=== PATIENT | male | born 1950 | race Hispanic/Latino ===

== ENCOUNTER 2017-03-29 20:03 | Emergency (ER) | payer MEDICARE, MEDICAID ==
[2017-03-29 20:03] VITALS: BMI 38.7
[2017-03-29 21:29] LABS: BASO # 0.1 K/uL (0.0-0.2); BASO % 1.1 % (0.0-2.0); EOS # 0.3 K/uL (0.0-0.7); EOS % 4.8 % (0.0-4.0); LYMPH % 27.7 % (20.0-40.0); MEAN CORPUSCULAR HEMOGLOBIN 29.3 pg (27.0-31.0); MEAN CORPUSCULAR HGB CONC 32.9 g/dL (33.0-37.0); MEAN PLATELET VOLUME 7.9 fL (7.2-11.7); MONO # 0.7 K/uL (0.0-0.8); MONO % 9.9 % (0.0-10.0); NRBC % 0.1 % (0.0-2.0); RED CELL DISTRIBUTION WIDTH 14.6 % (11.5-14.5); WHITE BLOOD COUNT 7.2 K/uL (4.8-10.8)
[2017-03-29 21:37] LABS: CHLORIDE 103 mmol/L (98-107); SODIUM 140 mmol/L (132-148)
[2017-03-29 21:38] LABS: POTASSIUM 5.2 mmol/L (3.6-5.2)
[2017-03-29 21:39] LABS: GFR AFRICAN-AMERICAN > 60
[2017-03-29 21:40] LABS: ALB/GLOB RATIO 1.3 (1.0-2.1); ALKALINE PHOSPHATASE 62 U/L (38-126); ALT/SGPT 38 U/L (21-72); AST/SGOT 46 U/L (17-59); BILIRUBIN,TOTAL 0.7 mg/dL (0.2-1.3); BLOOD UREA NITROGEN 24 mg/dL (9-20); CALCIUM 8.6 mg/dl (8.6-10.4); CARBON DIOXIDE 25 mmol/L (22-30); GLUCOSE,RANDOM 95 mg/dL (75-110); TOTAL PROTEIN 7.5 g/dL (6.3-8.3)
[2017-03-29 21:41] LABS: ALCOHOL SERUM 91 mg/dl (0-10)
--- NOTE | 2017-03-29 23:06 | C.PDOC ---
History Of Present Illness 66 year old male who presents to the ER after he tripped over his walker and hit his face on the ground. Patient admits to ETOH use today; denies LOC, nausea , or vomiting. - HPI Time Seen by Provider: 03/29/17 21:15 Chief Complaint (Nursing): Trauma History Per: Patient History/Exam Limitations: no limitations Onset/Duration Of Symptoms: Hrs Injury Occurred (Timing): Just Before Arrival Recent travel outside of the [place]: No Past Medical History Reviewed: Historical Data, Nursing Documentation, Vital Signs Vital Signs: Last Vital Signs Temp 98.3 F 03/30/17 00:04 Pulse 77 03/30/17 00:04 Resp 18 03/30/17 00:04 BP 141/82 03/30/17 00:04 Pulse Ox 95 03/30/17 00:13 - Medical History PMH: Diabetes, Hepatitis, HTN, Hypercholesterolemia Surgical History: No Surg Hx - [facility] Procedures DRUG DETOXIFICATION (03/15/15) TETANUS TOXOID ADMINIST (04/19/15) Family History: States: Unknown Family Hx - Social History Hx Tobacco Use: No Hx Alcohol Use: No Hx Substance Use: No - Immunization History Hx Tetanus Toxoid Vaccination: No (7-8 yrs ago) Hx Influenza Vaccination: No Hx Pneumococcal Vaccination: Yes Review Of Systems Constitutional: Negative for: Fever, Chills Gastrointestinal: Negative for: Nausea, Vomiting Neurological: Negative for: Other (LOC) Physical Exam - Physical Exam Appears: Non-toxic, Other (Obese, ETOH on breath, no other injuries) Skin: Warm, Dry Head: Normacephalic, Laceration (1cm superficial at bridge of nose) Eye(s): bilateral: Normal Inspection Oral Mucosa: Moist Neck: Normal, Supple Chest: Symmetrical, No Tenderness Cardiovascular: Rhythm Regular, No Murmur Respiratory: Normal Breath Sounds, No Rales, No Rhonchi, No Wheezing Gastrointestinal/Abdominal: Soft, No Tenderness Neurological/Psych: Oriented x3, Normal Speech, Normal Cognition ED Course And Treatment - Laboratory Results Result Diagrams: 03/29/17 21:25 03/29/17 21:25 Lab Interpretation: Abnormal (ETOH 90 H) ECG: Interpreted By Ri ECG Rhythm: Sinus Rhythm ECG Interpretation: Normal Rate From EC O2 Sat by Pulse Oximetry: 95 Pulse Ox Interpretation: Normal - Radiology CXR: Interpreted by Me CXR Interpretation: Yes: No Acute Disease - Other Rad Max Face CT X-Ray: Read By Radiologist (neg) Head CT X-Ray: Read By Radiologist (neg) Progress Note: EKG, CT head/maxillofacial, and CXR ordered. Tylenol and bacitracin administered. Reevaluation Time: 23:52 Reassessment Condition: Improved (remains calm, cooperative, NAD) Medical Decision Making Medical Decision Making: mild/mod etoh abuse, tripped over his rolling walker, small lac @ nasal bridge is superficial no sutures required. head/Max Face Head CT's neg. Disposition Doctor Will See Patient In The: Office Counseled Patient/Family Regarding: Studies Performed, Diagnosis - Disposition Referrals: Sreedhar Kelly DO [Doctor Osteopathy] - Disposition: HOME/ ROUTINE Disposition Time: 23:52 Condition: GOOD Additional Instructions: bacitracin ointment to the small facial laceration, 2x/day Follow-up with your PMD Avoid alcohol use when walking with your rolling walker to avoid tripping. Forms: [email or web address] ([place]) - Clinical Impression Clinical Impression: Facial laceration, Fall from standing - Scribe Statement The provider has reviewed the documentation as recorded by the Scribe Luis Felipe Munroe All medical record entries made by the Scribe were at my direction and personally dictated by me. I have reviewed the chart and agree that the record accurately reflects my personal performance of the history, physical exam, medical decision making, and the department course for this patient. I have also personally directed, reviewed, and agree with the discharge instructions and disposition.
--- NOTE | 2017-03-29 23:28 | CT ---
EXAM: CT Maxillofacial Without Intravenous Contrast EXAM DATE/TIME: 03/29/2017 9:24 PM CLINICAL HISTORY: 66 years old, male; Injury or trauma; Fall; Initial encounter; Concussion /head injury; Without loss of consciousness; Additional info: Fall from standing, ? nose TECHNIQUE: Axial computed tomography images of the face without intravenous contrast. All CT scans at this facility use one or more dose reduction techniques, viz.: automated exposure control; ma/kV adjustment per patient size (including targeted exams where dose is matched to indication; i.e. head); or iterative reconstruction technique. Coronal and sagittal reformatted images were created and reviewed. COMPARISON: No relevant prior studies available. FINDINGS: Subcutaneous soft tissue swelling in the nasal region. All of the nasal lucencies appear smooth and corticated. No acute nasal bone fracture identified. Mild mucosal thickening of the ethmoid sinuses, sphenoid sinuses, and right maxillary sinus. Probable mucosal retention cyst left sphenoid sinus Trace fluid in the mastoid air cells bilaterally. Dental fillings produce artifact. Degenerative changes in the cervical spine. IMPRESSION: No acute fractures.
--- NOTE | 2017-03-29 23:34 | CT ---
EXAM: CT Head Without Intravenous Contrast EXAM DATE/TIME: 03/29/2017 9:23 PM CLINICAL HISTORY: 66 years old, male; Injury or trauma; Fall; Initial encounter; Concussion / head injury; Additional info: Fall from standing, frontal TECHNIQUE: Axial computed tomography images of the head/brain without intravenous contrast. All CT scans at this facility use one or more dose reduction techniques, viz.: automated exposure control; ma/kV adjustment per patient size (including targeted exams where dose is matched to indication; i.e. head); or iterative reconstruction technique. COMPARISON: No relevant prior studies available. FINDINGS: Atrophy and chronic small vessel ischemic disease. 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 Left basal ganglia calcification. No intracranial hemorrhage. No intracranial edema. Mild mucosal thickening of the ethmoid and sphenoid sinuses with mucosal retention cyst in the left sphenoid sinus. No depressed fractures. IMPRESSION: No acute intracranial injury.
[2017-03-29] MEDS ORDERED: Bacitracin 500 Units/gm Oint Foilpak UD TOP ONE (23:51)
[2017-03-30] MEDS ORDERED: Bacitracin 500 Units/gm Oint Foilpak UD ONE (00:01)
[2017-03-30 00:05] VITALS: BP 141/82; PULSE 77; RESP 18; TEMP 98.3
[2017-03-30 00:12] VITALS: O2SAT 95
--- NOTE | 2017-03-30 11:22 | RAD ---
PROCEDURE: CHEST RADIOGRAPH, 1 VIEW HISTORY: SOB COMPARISON: 03/15/2015 FINDINGS: LUNGS: Clear. PLEURA: No pneumothorax or pleural fluid seen. CARDIOVASCULAR: Normal. OSSEOUS STRUCTURES: No significant abnormalities. VISUALIZED UPPER ABDOMEN: Normal. OTHER FINDINGS: None. IMPRESSION: No active disease.
--- NOTE | 2017-04-01 12:25 | CARD ---
APPROVED REPORT EKG Measurement Heart [id number] <Conclusion> Normal sinus rhythm Normal ECG
== END 2017-03-30 00:10 | disposition home or self-care (01) ==
LOC: C.ER 20:03
DX: S01.21XA Laceration without foreign body of nose, initial encounter (principal); W01.0XXA Fall on same level from slipping, tripping and stumbling without subsequent striking against object, initial encounter
CPT/HCPCS: 70450; 70486; 71010; 80053; 84484; 85025; 99285; G0480

== ENCOUNTER 2017-06-04 20:35 | Inpatient (IN) | payer MEDICARE, MEDICAID ==
[2017-06-04 20:35] VITALS: BMI 38.7
[2017-06-04 21:04] LABS: BASO # 0.1 K/uL (0.0-0.2); EOS # 0.1 K/uL (0.0-0.7); EOS % 1.5 % (0.0-4.0); HEMATOCRIT 38.8 % (35.0-51.0); LYMPH % 24.4 % (20.0-40.0); MEAN CELL VOLUME 89.3 fL (80.0-94.0); MEAN CORPUSCULAR HGB CONC 32.5 g/dL (33.0-37.0); MEAN PLATELET VOLUME 7.8 fL (7.2-11.7); MONO # 0.8 K/uL (0.0-0.8); MONO % 9.6 % (0.0-10.0); RED CELL DISTRIBUTION WIDTH 14.5 % (11.5-14.5); WHITE BLOOD COUNT 8.2 K/uL (4.8-10.8)
[2017-06-04 21:09] LABS: RBC URINE 4 /hpf (0-3); URINE BILIRUBIN NEGATIVE (NEGATIVE); URINE BLOOD NEGATIVE (NEGATIVE); URINE COLOR Amber (YELLOW); URINE GLUCOSE (UA) 1+ mg/dL (Normal); URINE KETONE TRACE mg/dL (NEGATIVE); URINE LEUKOCYTE ESTERASE NEG Leu/uL (Negative); URINE PROTEIN 2+ mg/dL (NEGATIVE); URINE UROBILINOGEN NORMAL mg/dL (0.2-1.0); WBC URINE 1 /hpf (0-5)
[2017-06-04 21:17] LABS: ALCOHOL SERUM 13 mg/dl (0-10); ALKALINE PHOSPHATASE 70 U/L (38-126); ALT/SGPT 40 U/L (21-72); AST/SGOT 25 U/L (17-59); BILIRUBIN,TOTAL 0.6 mg/dL (0.2-1.3); BLOOD UREA NITROGEN 19 mg/dL (9-20); CALCIUM 9.2 mg/dl (8.6-10.4); CARBON DIOXIDE 25 mmol/L (22-30); CHLORIDE 97 mmol/L (98-107); GFR AFRICAN-AMERICAN > 60; GLUCOSE,RANDOM 136 mg/dL (75-110); POTASSIUM 4.1 mmol/L (3.6-5.2); SODIUM 139 mmol/L (132-148); TOTAL PROTEIN 8.3 g/dL (6.3-8.3)
[2017-06-04 21:29] LABS: ALB/GLOB RATIO 1.4 (1.0-2.1)
[2017-06-04] MEDS ORDERED: Sodium Chloride 0.9% 1,000 ML IV ONE (21:30)
--- NOTE | 2017-06-04 21:32 | C.PDOC ---
History Of Present Illness 66 year old male with Hx of diabetes, HTN, and substance abuse presents to the ED requesting detox for heroin abuse, his last heroin was this afternoon at 16: 00. Patient states feeling nervous that started around 18:00 today associated with palpitations. Patient states he went through detox 2 years ago and was sober for about a year before he got his left knee surgery, after it he started to use heroin again. He states having neuropathy in his feet, and is taking Lisinopril for his HTN. Chief Complaint (Nursing): Substance Abuse History Per: Patient History/Exam Limitations: no limitations Onset/Duration Of Symptoms: Hrs Current Symptoms Are (Timing): Still Present Suicide/Self Injury Attempted (Context): None Modifying Factor(s): Other (Heroin) Associated Symptoms: Anxiety. denies: Suicidal Thoughts, Suicidal Plan Involuntary Hold By: None Recent travel outside of the [place]: No Additional History Per: Patient Past Medical History Reviewed: Historical Data, Nursing Documentation, Vital Signs Vital Signs: Last Vital Signs Temp 97.3 F L 06/04/17 20:40 Pulse 95 H 06/04/17 22:14 Resp 15 06/04/17 22:14 BP 152/87 H 06/04/17 22:14 Pulse Ox 95 06/04/17 23:04 - Medical History PMH: Diabetes, Hepatitis, HTN, Hypercholesterolemia Denies: HIV, Chronic Kidney Disease, Seizures, Sexually Transmitted Disease Surgical History: No Surg Hx - [facility] Procedures DRUG DETOXIFICATION (03/15/15) TETANUS TOXOID ADMINIST (04/19/15) Family History: States: Unknown Family Hx - Social History Hx Tobacco Use: No Hx Alcohol Use: No Hx Substance Use: Yes - Immunization History Hx Tetanus Toxoid Vaccination: No (7-8 yrs ago) Hx Influenza Vaccination: Yes Hx Pneumococcal Vaccination: Yes Review Of Systems Constitutional: Negative for: Fever, Chills, Weakness Cardiovascular: Positive for: Palpitations. Negative for: Chest Pain Respiratory: Negative for: Cough, Shortness of Breath Gastrointestinal: Negative for: Nausea, Vomiting, Abdominal Pain Genitourinary: Negative for: Frequency, Incontinence Neurological: Negative for: Weakness, Numbness, Headache Physical Exam - Physical Exam Appears: Agitated, Other (Nervous) Skin: Normal Color, Warm, Dry Head: Atraumatic, Normacephalic Oral Mucosa: Moist Neck: Normal ROM, Supple Chest: Symmetrical, No Tenderness Cardiovascular: Rhythm Regular, No Murmur Respiratory: Normal Breath Sounds, No Accessory Muscle Use, No Rales, No Rhonchi , No Wheezing Gastrointestinal/Abdominal: Soft, No Tenderness Extremity: Normal ROM, No Pedal Edema, No Calf Tenderness, No Swelling Pulses: Left Radial: Normal, Right Radial: Normal, Left Dorsalis Pedis: Normal, Right Dorsalis Pedis: Normal Neurological/Psych: Oriented x3, Normal Speech, Normal Cognition Gait: Steady ED Course And Treatment - Laboratory Results Result Diagrams: 06/04/17 21:01 06/04/17 21:01 ECG: Interpreted By Me, Viewed By Me ECG Rhythm: Atrial Fibrillation ECG Interpretation: Abnormal Interpretation Of ECG: AFib with RVR at 130 BPM, no acute ST or T wave changes, no ischemia, no old EKG for comparison. Rate From EC O2 Sat by Pulse Oximetry: 95 (On RA) Pulse Ox Interpretation: Normal Medical Decision Making Medical Decision Making: Impression : 66 y/o male requesting detox Plan: * EKG, CXR, UA ordered * Blood work ordered * Cardizem 25 mg IVP, IV fluids given * Blood culture collected After Cardizem was given patient's heart rate is now at 90 BPM, on reevaluation patient's Afib persists. Disposition - Disposition Disposition: HOSPITALIZED Disposition Time: 23:05 Condition: FAIR Forms: [facility] ([place]) - Clinical Impression Clinical Impression: Drug abuse, Atrial fibrillation, Heroin dependence - Scribe Statement The provider has reviewed the documentation as recorded by the Scribe Arian Harden All medical record entries made by the Scribe were at my direction and personally dictated by me. I have reviewed the chart and agree that the record accurately reflects my personal performance of the history, physical exam, medical decision making, and the department course for this patient. I have also personally directed, reviewed, and agree with the discharge instructions and disposition. Decision To Admit - Pt Status Changed To: Hospital Disposition Of: Inpatient - Admit Certification Admit to Inpatient:: After my assessment, the patient will require hospitalization for at least two midnights. This is because of the severity of symptoms shown, intensity of services needed, and/or the medical risk in this patient being treated as an outpatient. - InPatient: Physician Admission Certification: I certify that this patient requires 2 or more midnights of care for the following reason:: new onset atrial fib. Heroin dependency - . Bed Request Type: Telemetry Admitting Physician: Becky Rdiley Patient Diagnosis: Drug abuse, Atrial fibrillation, Heroin dependence
[2017-06-04] MEDS ORDERED: Sodium Chloride 0.9% 1,000 ML ONE (21:52)
[2017-06-04] MEDS ORDERED: Iodixanol 320 mg/ml 150 ml Bottle IV ONE (22:30)
--- NOTE | 2017-06-04 23:29 | CT ---
EXAM: CT Angiography Chest With Intravenous Contrast CLINICAL HISTORY: 66 years old, male; Pain; Chest pain; Type not specified; Additional info: R/O pe TECHNIQUE: Axial computed tomographic angiography images of the chest with intravenous contrast using pulmonary embolism protocol. All CT scans at this facility use one or more dose reduction techniques, viz.: automated exposure control; ma/kV adjustment per patient size (including targeted exams where dose is matched to indication; i.e. head); or iterative reconstruction technique. MIP reconstructed images were created and reviewed. Coronal and sagittal reformatted images were created and reviewed. CONTRAST: 100 mL of visipaque n320 administered intravenously. COMPARISON: No relevant prior studies available. FINDINGS: Pulmonary arteries: No pulmonary embolism. Aorta: No thoracic aortic aneurysm. No dissection. Lungs: No mass. No consolidation. Pleural spaces: No significant effusion. No pneumothorax. Heart: No cardiomegaly. No significant pericardial effusion. No evidence of right heart dysfunction. Bones: No acute fracture. Lymph nodes: No pathologically enlarged lymph nodes. Clips within the left axilla. Fluid-filled gastric distention. IMPRESSION: No pulmonary embolism. The lungs are clear.
[2017-06-05] MEDS ORDERED: (Lantus) Insulin Glargine, Recombinant SC STA (02:50)
[2017-06-05 07:46] LABS: FREE T4 0.99 ng/dL (0.78-2.19)
[2017-06-05 07:50] LABS: ALB/GLOB RATIO 1.5 (1.0-2.1); ALKALINE PHOSPHATASE 62 U/L (38-126); ALT/SGPT 37 U/L (21-72); AST/SGOT 22 U/L (17-59); BILIRUBIN,TOTAL 0.6 mg/dL (0.2-1.3); BLOOD UREA NITROGEN 18 mg/dL (9-20); CALCIUM 8.7 mg/dl (8.6-10.4); CARBON DIOXIDE 28 mmol/L (22-30); CHLORIDE 99 mmol/L (98-107); GFR AFRICAN-AMERICAN > 60; GLUCOSE,RANDOM 121 mg/dL (75-110); POTASSIUM 4.2 mmol/L (3.6-5.2); SODIUM 132 mmol/L (132-148); TOTAL PROTEIN 6.2 g/dL (6.3-8.3)
[2017-06-05 08:00] LABS: THYROID STIMULATING HORMONE 1.34 mIU/L (0.46-4.68)
[2017-06-05] MEDS: (Novolog) Insulin Aspart, Recombinant 100 u/ml 10 ml vial SC SCH ×3 (08:00→17:19)
--- NOTE | 2017-06-05 08:10 | RAD ---
PROCEDURE: CHEST RADIOGRAPH, 1 VIEW HISTORY: SOB COMPARISON: Portable chest 03/29/2017. FINDINGS: LUNGS: No acute infiltrate identified bilaterally. PLEURA: No pneumothorax or pleural fluid seen. CARDIOVASCULAR: Normal. OSSEOUS STRUCTURES: No significant abnormalities. VISUALIZED UPPER ABDOMEN: Normal. OTHER FINDINGS: Surgical clips again seen the left axilla. IMPRESSION: No interval acute cardiopulmonary disease appreciated.
--- NOTE | 2017-06-05 10:46 | CP.PCM.HP ---
History of Present Illness - History of Present Illness History of Present Illness: pt came in for detox diabetic injicting heroin 2 nathaniel a day for long ys found to have at fib new Present on Admission - Present on Admission Any Indicators Present on Admission: Yes Review of Systems - Review of Systems Systems not reviewed;Unavailable: Acuity of Condition - Constitutional Constitutional: As Per HPI - EENT Eyes: As Per HPI Ears: As Per HPI Nose/Mouth/Throat: As Per HPI - Cardiovascular Cardiovascular: As Per HPI, Irregular Heart Rhythm - Respiratory Respiratory: As Per HPI - Gastrointestinal Gastrointestinal: As Per HPI - Genitourinary Genitourinary: As Per HPI - Reproductive: Male Reproductive:Male: As Per HPI - Musculoskeletal Musculoskeletal: As Per HPI - Integumentary Integumentary: As Per HPI - Neurological Neurological: As Per HPI - Psychiatric Psychiatric: As Per HPI - Endocrine Endocrine: As Per HPI, Polydipsia, Polyphagia, Polyuria - Hematologic/Lymphatic Hematologic: As Per HPI Past Patient History - Infectious Disease Hx of Infectious Diseases: None - Past Medical History & Family History Past Medical History?: Yes - Past Social History Smoking Status: Never Smoked Drugs: Other (heroin) - CARDIAC Hx Hypercholesterolemia: Yes Hx Hypertension: Yes - PULMONARY Hx Tuberculosis: No - NEUROLOGICAL Hx Seizures: No - HEENT Hx HEENT Problems: No - RENAL Hx Chronic Kidney Disease: No - ENDOCRINE/METABOLIC Hx Endocrine Disorders: Yes Hx Diabetes Mellitus Type 2: Yes Other/Comment: neuropathy - HEMATOLOGICAL/ONCOLOGICAL Hx Human Immunodeficiency Virus (HIV): No - INTEGUMENTARY Hx Dermatological Problems: Yes Hx Melanoma: Yes (Malignant Melonoma removed 1996) - MUSCULOSKELETAL/RHEUMATOLOGICAL Hx Falls: Yes - GASTROINTESTINAL Hx Gastrointestinal Disorders: No - GENITOURINARY/GYNECOLOGICAL Hx Sexually Transmitted Disorders: No - PSYCHIATRIC Hx Substance Use: Yes (Heroin 9-12 Bag a day.) - SURGICAL HISTORY Hx Surgeries: Yes Hx Musculoskeletal Surgery: Yes (BILATERAL KNEE, CARPAL TUNNEL) Other/Comment: Umbilical Hernia Repair. B/L Knee Artho,. lymph nodes removeded from jamal axilla - ANESTHESIA Hx Anesthesia: Yes Hx Anesthesia Reactions: No Hx Malignant Hyperthermia: No Meds Allergies/Adverse Reactions: Allergies Allergy/AdvReac Type Severity Reaction Status Date / Time No Known Allergies Allergy Verified 03/15/15 06:20 Physical Exam - Constitutional Appears: Non-toxic - Head Exam Head Exam: NORMOCEPHALIC - Eye Exam Eye Exam: Normal appearance Pupil Exam: NORMAL ACCOMODATION - ENT Exam ENT Exam: Mucous Membranes Moist - Respiratory Exam Respiratory Exam: NORMAL BREATHING PATTERN - Cardiovascular Exam Cardiovascular Exam: Irregular Rhythm - GI/Abdominal Exam GI & Abdominal Exam: Normal Bowel Sounds - Back Exam Back exam: NORMAL INSPECTION - Neurological Exam Neurological exam: Normal Gait - Psychiatric Exam Psychiatric exam: Normal Affect - Skin Skin Exam: Normal Color Results - Vital Signs Recent Vital Signs: Last Vital Signs Temp 98 F 06/05/17 07:00 Pulse 83 06/05/17 07:00 Resp 20 06/05/17 07:00 BP 111/70 06/05/17 07:00 Pulse Ox 98 06/05/17 07:00 - Labs Result Diagrams: 06/04/17 21:01 06/05/17 06:49 Labs: Laboratory Results - last 24 hr 06/04/17 06/04/17 06/04/17 21:01 21:01 21:01 WBC 8.2 RBC 4.34 L Hgb 12.6 Hct 38.8 MCV 89.3 MCH 29.0 MCHC 32.5 L RDW 14.5 Plt Count 311 MPV 7.8 Neut % (Auto) 63.5 Lymph % (Auto) 24.4 [place] % (Auto) 9.6 Eos % (Auto) 1.5 Baso % (Auto) 1.0 Neut # 5.2 Lymph # 2.0 [place] # 0.8 Eos # 0.1 Baso # 0.1 ESR PT INR APTT D-Dimer, Quantitative Sodium 139 Potassium 4.1 Chloride 97 L Carbon Dioxide 25 Anion Gap 22 H BUN 19 Creatinine 1.0 Est GFR ( Amer) > 60 Est GFR (Non-Af Amer) > 60 POC Glucose (mg/dL) Random Glucose 136 H Hemoglobin A1c Calcium 9.2 Total Bilirubin 0.6 AST 25 ALT 40 Alkaline Phosphatase 70 Total Creatine Kinase CK-MB (Mass) Troponin I Troponin I, Quant C-React Prot High Sens NT-Pro-B Natriuret Pep Total Protein 8.3 Albumin 4.9 Globulin 3.4 Albumin/Globulin Ratio 1.4 Free T4 TSH 3rd Generation Urine Color Jennifer Urine Clarity Clear Urine pH 5.0 Ur Specific [place] 1.024 Urine Protein 2+ H Urine Glucose (UA) 1+ H Urine Ketones Trace Urine Blood Negative Urine Nitrate Negative Urine Bilirubin Negative Urine Urobilinogen Normal Ur Leukocyte Esterase Neg Urine WBC (Auto) 1 Urine RBC (Auto) 4 H Ur Squamous Epith Cells 1 Hyaline Casts 3-5 H Urine Opiates Screen Urine Methadone Screen Ur Barbiturates Screen Ur Phencyclidine Scrn Ur Amphetamines Screen U Benzodiazepines Scrn U Oth Cocaine Metabols U Cannabinoids Screen Alcohol, Quantitative 13 H Serum Ketones 06/04/17 06/04/17 06/04/17 21:01 21:37 21:37 WBC RBC Hgb Hct MCV MCH MCHC RDW Plt Count MPV Neut % (Auto) Lymph % (Auto) [place] % (Auto) Eos % (Auto) Baso % (Auto) Neut # Lymph # [place] # Eos # Baso # ESR PT 10.7 INR 1.0 APTT 33 D-Dimer, Quantitative 889 H Sodium Potassium Chloride Carbon Dioxide Anion Gap BUN Creatinine Est GFR ( Amer) Est GFR (Non-Af Amer) POC Glucose (mg/dL) Random Glucose Hemoglobin A1c Calcium Total Bilirubin AST ALT Alkaline Phosphatase Total Creatine Kinase CK-MB (Mass) Troponin I < 0.0120 Troponin I, Quant C-React Prot High Sens NT-Pro-B Natriuret Pep 1510 H Total Protein Albumin Globulin Albumin/Globulin Ratio Free T4 TSH 3rd Generation Urine Color Urine Clarity Urine pH Ur Specific [place] Urine Protein Urine Glucose (UA) Urine Ketones Urine Blood Urine Nitrate Urine Bilirubin Urine Urobilinogen Ur Leukocyte Esterase Urine WBC (Auto) Urine RBC (Auto) Ur Squamous Epith Cells Hyaline Casts Urine Opiates Screen Positive H Urine Methadone Screen Negative Ur Barbiturates Screen Negative Ur Phencyclidine Scrn Negative Ur Amphetamines Screen Negative U Benzodiazepines Scrn Positive U Oth Cocaine Metabols Negative U Cannabinoids Screen Negative Alcohol, Quantitative Serum Ketones Negative 06/04/17 06/04/17 06/05/17 21:37 21:37 02:38 WBC RBC Hgb Hct MCV MCH MCHC RDW Plt Count MPV Neut % (Auto) Lymph % (Auto) [place] % (Auto) Eos % (Auto) Baso % (Auto) Neut # Lymph # [place] # Eos # Baso # ESR 19 H PT INR APTT D-Dimer, Quantitative Sodium Potassium Chloride Carbon Dioxide Anion Gap BUN Creatinine Est GFR ( Amer) Est GFR (Non-Af Amer) POC Glucose (mg/dL) 137 H Random Glucose Hemoglobin A1c Calcium Total Bilirubin AST ALT Alkaline Phosphatase Total Creatine Kinase CK-MB (Mass) Troponin I Troponin I, Quant C-React Prot High Sens 0.42 L NT-Pro-B Natriuret Pep Total Protein Albumin Globulin Albumin/Globulin Ratio Free T4 TSH 3rd Generation Urine Color Urine Clarity Urine pH Ur Specific [place] Urine Protein Urine Glucose (UA) Urine Ketones Urine Blood Urine Nitrate Urine Bilirubin Urine Urobilinogen Ur Leukocyte Esterase Urine WBC (Auto) Urine RBC (Auto) Ur Squamous Epith Cells Hyaline Casts Urine Opiates Screen Urine Methadone Screen Ur Barbiturates Screen Ur Phencyclidine Scrn Ur Amphetamines Screen U Benzodiazepines Scrn U Oth Cocaine Metabols U Cannabinoids Screen Alcohol, Quantitative Serum Ketones 06/05/17 06/05/17 06/05/17 06:18 06:49 06:49 WBC RBC Hgb Hct MCV MCH MCHC RDW Plt Count MPV Neut % (Auto) Lymph % (Auto) [place] % (Auto) Eos % (Auto) Baso % (Auto) Neut # Lymph # [place] # Eos # Baso # ESR PT INR APTT D-Dimer, Quantitative Sodium 132 Potassium 4.2 Chloride 99 Carbon Dioxide 28 Anion Gap 10 BUN 18 Creatinine 0.9 Est GFR ( Amer) > 60 Est GFR (Non-Af Amer) > 60 POC Glucose (mg/dL) 136 H Random Glucose 121 H Hemoglobin A1c 6.2 Calcium 8.7 Total Bilirubin 0.6 AST 22 ALT 37 Alkaline Phosphatase 62 Total Creatine Kinase 61 CK-MB (Mass) 1.47 Troponin I Troponin I, Quant < 0.0120 C-React Prot High Sens NT-Pro-B Natriuret Pep Total Protein 6.2 L Albumin 3.7 Globulin 2.5 Albumin/Globulin Ratio 1.5 Free T4 TSH 3rd Generation Urine Color Urine Clarity Urine pH Ur Specific [place] Urine Protein Urine Glucose (UA) Urine Ketones Urine Blood Urine Nitrate Urine Bilirubin Urine Urobilinogen Ur Leukocyte Esterase Urine WBC (Auto) Urine RBC (Auto) Ur Squamous Epith Cells Hyaline Casts Urine Opiates Screen Urine Methadone Screen Ur Barbiturates Screen Ur Phencyclidine Scrn Ur Amphetamines Screen U Benzodiazepines Scrn U Oth Cocaine Metabols U Cannabinoids Screen Alcohol, Quantitative Serum Ketones 06/05/17 06:49 WBC RBC Hgb Hct MCV MCH MCHC RDW Plt Count MPV Neut % (Auto) Lymph % (Auto) [place] % (Auto) Eos % (Auto) Baso % (Auto) Neut # Lymph # [place] # Eos # Baso # ESR PT INR APTT D-Dimer, Quantitative Sodium Potassium Chloride Carbon Dioxide Anion Gap BUN Creatinine Est GFR ( Amer) Est GFR (Non-Af Amer) POC Glucose (mg/dL) Random Glucose Hemoglobin A1c Calcium Total Bilirubin AST ALT Alkaline Phosphatase Total Creatine Kinase CK-MB (Mass) Troponin I Troponin I, Quant C-React Prot High Sens NT-Pro-B Natriuret Pep Total Protein Albumin Globulin Albumin/Globulin Ratio Free T4 0.99 TSH 3rd Generation 1.34 Urine Color Urine Clarity Urine pH Ur Specific [place] Urine Protein Urine Glucose (UA) Urine Ketones Urine Blood Urine Nitrate Urine Bilirubin Urine Urobilinogen Ur Leukocyte Esterase Urine WBC (Auto) Urine RBC (Auto) Ur Squamous Epith Cells Hyaline Casts Urine Opiates Screen Urine Methadone Screen Ur Barbiturates Screen Ur Phencyclidine Scrn Ur Amphetamines Screen U Benzodiazepines Scrn U Oth Cocaine Metabols U Cannabinoids Screen Alcohol, Quantitative Serum Ketones Assessment & Plan - Assessment and Plan (Free Text) Assessment: heroin abuse ac at fib dm obesity Plan: tele
--- NOTE | 2017-06-05 14:42 | PCM.PSYCH ---
Initial Psychiatric Evaluation - Initial Psychiatric Evaluation Type of Admission: Voluntary Legal Status: Capacity Chief Complaint (in patient's own words): "too much heroin" History of Present Illness and Precipitating Events: The pt is seen, chart reviewed, case discussed with staff. Consult was requested for his opioid use Patient is a 66 YO retired single male with no children . Patient lives alone. Before halfway patient worked in [place] in [employer] for the city. Patient has a 45 year history of heroin use. Patient relapsed 1 1/2 years ago and now uses 9-12 bags of IV heroin per day . Patients' last use was yesterday at 4pm. Patient has been to detox once before. Patient has never been to rehab. Patient has never tried methadone or Suboxone for maintenance. Patient denies any other drug use. Patient denies alcohol use. Patient denies tobacco use. Patient is currently not experiencing any withdrawal symptoms. pych hx: denies PMH: HTN, DM Family hx: denies Current Medications: Active Medications Generic Name Dose Route Start Last Admin Trade Name Jose PRN Reason Stop Dose Admin Amlodipine Besylate 5 mg 06/05/17 10:00 06/05/17 10:48 Norvasc PO 5 mg DAILY SHARIF Administration Clonidine HCl 0.1 mg 06/05/17 03:05 06/05/17 10:47 Catapres PO 0.1 mg BID SHARIF Administration Duloxetine HCl 60 mg 06/06/17 10:00 Cymbalta PO DAILY SHARIF Furosemide 20 mg 06/05/17 10:00 06/05/17 10:48 Lasix IVP 20 mg DAILY SHARFI Administration Heparin Sodium (Porcine) 5,000 units 06/05/17 10:00 06/05/17 10:48 Heparin SC 5,000 units Q12 SHARIF Administration Insulin Aspart 0 unit 06/05/17 07:30 06/05/17 12:05 Novolog SC Not Given ACHS [facility] Protocol Lisinopril 20 mg 06/05/17 10:00 06/05/17 10:48 Zestril PO 20 mg DAILY SHARIF Administration Metformin HCl 1,000 mg 06/05/17 10:00 06/05/17 09:00 Glucophage PO Not Given BID SHARIF Methadone HCl 20 mg 06/05/17 18:00 Methadone PO 06/05/17 18:01 ONCE ONE Methadone HCl 15 mg 06/06/17 09:00 Methadone PO 06/10/17 08:59 Q24H SHARIF Taper Spironolactone 25 mg 06/05/17 10:00 06/05/17 10:47 Aldactone PO 25 mg DAILY SHARIF Administration Temazepam 30 mg 06/05/17 10:41 Restoril PO HS PRN Sleep Warfarin Sodium 4 mg 06/05/17 18:00 Coumadin PO 06/05/17 18:01 1800 SHARIF Past Psychiatric History - Past Psychiatric History Previous Treatment History: None Pertinent Medical Hx (Current Medical&Sleep Prob, Allergies): Allergies Allergy/AdvReac Type Severity Reaction Status Date / Time No Known Allergies Allergy Verified 03/15/15 06:20 Lisinopril 40 mg PO DAILY 11/16/14 MetFORMIN [glucOPHAGE] 1,000 mg PO BID 11/16/14 amLODIPine [Norvasc] 1 tab PO DAILY 04/19/15 Atorvastatin [Lipitor] 40 mg PO DAILY 03/29/17 DULoxetine [Cymbalta] 30 mg PO DAILY 03/29/17 Insulin Glargine, Recombina [Lantus] 50 unit SQ HS 03/29/17 Temazepam [Restoril] 30 mg PO HS PRN 03/29/17 Review of Systems - Psychiatric Psychiatric: As Per [facility] Mental Status Examination - Personal Presentation Personal Presentation: Looks stated age - Affect Affect: Blunted - Motor Activity Motor Activity: Calm - Reliability in Providing Information Reliability in Providing Information: Fair - Speech Speech: Organized - Mood Mood: Neutral - Formal Thought Process Formal Thought Process: No Impairment - Obsessions/Compulsions Obsessions: None Compulsions: None - Cognitive Functions Orientation: Person, Place, Situation, Time Sensorium: Alert Attention/Concentration: Attentive Abstract Thinking: Bivins Estimate of Intelligence: Average Judgement: Intact, as evidence by: Insight regarding need for hospitalization Memory: Recent intact, as evidence by: Ability to recall events of the day - Risk Risk: Withdrawal - Limitations Limitations: Living alone DSM 5 DX - DSM 5 DSM 5 Diagnosis: Opioid withdrawal opioid use disorder severe - Recommended/Plan of Treatment Treatment Recommendations and Plan of Treatment: methadone detox As needed medications Attend groups and activities Supportive therapy and psychoeducation NM for abstinence CBT for relapse prevention Encourage MAT Refer to rehab or IOP Attend self-help groups as well 34 min Prognosis: good with treatment
--- NOTE | 2017-06-05 17:08 | CARD ---
APPROVED REPORT EKG Measurement Heart [id number] <Conclusion> Normal sinus rhythm Normal ECG
--- NOTE | 2017-06-05 21:26 | CP.PCM.CON ---
History of Present Illness - History of Present Illness History of Present Illness: 66 y/o man with hx of heroin and opioid abuse presents for detox and found to have AFIB without prior reported history. No ANGINA No CHF No palpitation, dizziness or syncope No fevers, chills or neurologic sx's PMHX: HTN chronic labile, DM chronic labile CV Hx: No reports of ME or CVA PSHX: umbilical hernia, melanoma back, carpal tunnel, B/L TKR SocHx: Past Patient History - Infectious Disease Hx of Infectious Diseases: None - Past Medical History & Family History Past Medical History?: Yes - Past Social History Smoking Status: Never Smoked Drugs: Other (heroin) - CARDIAC Hx Hypercholesterolemia: Yes Hx Hypertension: Yes - PULMONARY Hx Tuberculosis: No - NEUROLOGICAL Hx Seizures: No - HEENT Hx HEENT Problems: No - RENAL Hx Chronic Kidney Disease: No - ENDOCRINE/METABOLIC Hx Endocrine Disorders: Yes Hx Diabetes Mellitus Type 2: Yes Other/Comment: neuropathy - HEMATOLOGICAL/ONCOLOGICAL Hx Human Immunodeficiency Virus (HIV): No - INTEGUMENTARY Hx Dermatological Problems: Yes Hx Melanoma: Yes (Malignant Melonoma removed 1996) - MUSCULOSKELETAL/RHEUMATOLOGICAL Hx Falls: Yes - GASTROINTESTINAL Hx Gastrointestinal Disorders: No - GENITOURINARY/GYNECOLOGICAL Hx Sexually Transmitted Disorders: No - PSYCHIATRIC Hx Substance Use: Yes (Heroin 9-12 Bag a day.) - SURGICAL HISTORY Hx Surgeries: Yes Hx Musculoskeletal Surgery: Yes (BILATERAL KNEE, CARPAL TUNNEL) Other/Comment: Umbilical Hernia Repair. B/L Knee Artho,. lymph nodes removeded from jamal axilla - ANESTHESIA Hx Anesthesia: Yes Hx Anesthesia Reactions: No Hx Malignant Hyperthermia: No Meds Allergies/Adverse Reactions: Allergies Allergy/AdvReac Type Severity Reaction Status Date / Time No Known Allergies Allergy Verified 03/15/15 06:20 - Medications Medications: Current Medications Amlodipine Besylate (Norvasc) 5 mg PO DAILY [facility] Last Admin: 06/05/17 10:48 Dose: 5 mg Clonidine HCl (Catapres) 0.1 mg PO BID [facility] Last Admin: 06/05/17 17:25 Dose: 0.1 mg Duloxetine HCl (Cymbalta) 60 mg PO DAILY [facility] Furosemide (Lasix) 20 mg IVP DAILY [facility] Last Admin: 06/05/17 10:48 Dose: 20 mg Heparin Sodium (Porcine) (Heparin) 5,000 units SC Q12 [facility] Last Admin: 06/05/17 10:48 Dose: 5,000 units Insulin Aspart (Novolog) 0 unit SC ACHS SHARIF PRN Reason: Protocol Last Admin: 06/05/17 17:19 Dose: Not Given Lisinopril (Zestril) 20 mg PO DAILY [facility] Last Admin: 06/05/17 10:48 Dose: 20 mg Metformin HCl (Glucophage) 1,000 mg PO BID [facility] Last Admin: 06/05/17 17:25 Dose: Not Given Methadone HCl (Methadone) 15 mg PO Q24H SHARIF PRN Reason: Taper Stop: 06/10/17 08:59 Metoprolol Succinate (Toprol Xl) 25 mg PO DAILY [facility] Spironolactone (Aldactone) 25 mg PO DAILY [facility] Last Admin: 06/05/17 10:47 Dose: 25 mg Temazepam (Restoril) 30 mg PO HS PRN PRN Reason: Sleep Results - Vital Signs Recent Vital Signs: Last Vital Signs Temp 98.4 F 06/05/17 15:15 Pulse 94 H 06/05/17 17:34 Resp 20 06/05/17 15:15 BP 126/77 06/05/17 15:15 Pulse Ox 99 06/05/17 15:15 - Labs Result Diagrams: 06/04/17 21:01 06/05/17 06:49 Labs: Laboratory Results - last 24 hr 06/04/17 06/04/17 06/04/17 21:01 21:01 21:37 ESR PT 10.7 INR 1.0 APTT 33 D-Dimer, Quantitative 889 H Sodium Potassium Chloride Carbon Dioxide Anion Gap BUN Creatinine Est GFR ( Amer) Est GFR (Non-Af Amer) POC Glucose (mg/dL) Random Glucose Hemoglobin A1c Calcium Total Bilirubin AST ALT Alkaline Phosphatase Total Creatine Kinase CK-MB (Mass) Troponin I Troponin I, Quant C-React Prot High Sens NT-Pro-B Natriuret Pep Total Protein Albumin Globulin 3.4 Albumin/Globulin Ratio 1.4 Free T4 TSH 3rd Generation Urine Opiates Screen Positive H Urine Methadone Screen Negative Ur Barbiturates Screen Negative Ur Phencyclidine Scrn Negative Ur Amphetamines Screen Negative U Benzodiazepines Scrn Positive U Oth Cocaine Metabols Negative U Cannabinoids Screen Negative Serum Ketones 06/04/17 06/04/17 06/04/17 21:37 21:37 21:37 ESR 19 H PT INR APTT D-Dimer, Quantitative Sodium Potassium Chloride Carbon Dioxide Anion Gap BUN Creatinine Est GFR ( Amer) Est GFR (Non-Af Amer) POC Glucose (mg/dL) Random Glucose Hemoglobin A1c Calcium Total Bilirubin AST ALT Alkaline Phosphatase Total Creatine Kinase CK-MB (Mass) Troponin I < 0.0120 Troponin I, Quant C-React Prot High Sens 0.42 L NT-Pro-B Natriuret Pep 1510 H Total Protein Albumin Globulin Albumin/Globulin Ratio Free T4 TSH 3rd Generation Urine Opiates Screen Urine Methadone Screen Ur Barbiturates Screen Ur Phencyclidine Scrn Ur Amphetamines Screen U Benzodiazepines Scrn U Oth Cocaine Metabols U Cannabinoids Screen Serum Ketones Negative 06/05/17 06/05/17 06/05/17 02:38 06:18 06:49 ESR PT INR APTT D-Dimer, Quantitative Sodium 132 Potassium 4.2 Chloride 99 Carbon Dioxide 28 Anion Gap 10 BUN 18 Creatinine 0.9 Est GFR ( Amer) > 60 Est GFR (Non-Af Amer) > 60 POC Glucose (mg/dL) 137 H 136 H Random Glucose 121 H Hemoglobin A1c Calcium 8.7 Total Bilirubin 0.6 AST 22 ALT 37 Alkaline Phosphatase 62 Total Creatine Kinase 61 CK-MB (Mass) 1.47 Troponin I Troponin I, Quant < 0.0120 C-React Prot High Sens NT-Pro-B Natriuret Pep Total Protein 6.2 L Albumin 3.7 Globulin 2.5 Albumin/Globulin Ratio 1.5 Free T4 TSH 3rd Generation Urine Opiates Screen Urine Methadone Screen Ur Barbiturates Screen Ur Phencyclidine Scrn Ur Amphetamines Screen U Benzodiazepines Scrn U Oth Cocaine Metabols U Cannabinoids Screen Serum Ketones 06/05/17 06/05/17 06/05/17 06:49 06:49 10:45 ESR PT INR APTT D-Dimer, Quantitative Sodium Potassium Chloride Carbon Dioxide Anion Gap BUN Creatinine Est GFR ( Amer) Est GFR (Non-Af Amer) POC Glucose (mg/dL) 142 H Random Glucose Hemoglobin A1c 6.2 Calcium Total Bilirubin AST ALT Alkaline Phosphatase Total Creatine Kinase CK-MB (Mass) Troponin I Troponin I, Quant C-React Prot High Sens NT-Pro-B Natriuret Pep Total Protein Albumin Globulin Albumin/Globulin Ratio Free T4 0.99 TSH 3rd Generation 1.34 Urine Opiates Screen Urine Methadone Screen Ur Barbiturates Screen Ur Phencyclidine Scrn Ur Amphetamines Screen U Benzodiazepines Scrn U Oth Cocaine Metabols U Cannabinoids Screen Serum Ketones 06/05/17 12:01 ESR PT 11.2 INR 1.0 APTT D-Dimer, Quantitative Sodium Potassium Chloride Carbon Dioxide Anion Gap BUN Creatinine Est GFR ( Amer) Est GFR (Non-Af Amer) POC Glucose (mg/dL) Random Glucose Hemoglobin A1c Calcium Total Bilirubin AST ALT Alkaline Phosphatase Total Creatine Kinase CK-MB (Mass) Troponin I Troponin I, Quant C-React Prot High Sens NT-Pro-B Natriuret Pep Total Protein Albumin Globulin Albumin/Globulin Ratio Free T4 TSH 3rd Generation Urine Opiates Screen Urine Methadone Screen Ur Barbiturates Screen Ur Phencyclidine Scrn Ur Amphetamines Screen U Benzodiazepines Scrn U Oth Cocaine Metabols U Cannabinoids Screen Serum Ketones Assessment & Plan - Assessment and Plan (Free Text) Assessment: AFIB now in NSR [id number] 2-3 No reports of bleeding (GI or ) Plan echo Coumadiin for INR 2-3 Metoprolol XL 25 daily Patient on clonidine, aldactone, lisinopril, norvasc: BP is controlled ( consider reduction or down titration if tolerated) Check TSH
[2017-06-06 02:09] VITALS: TEMP 98.2
[2017-06-06 08:28] VITALS: BP 129/79; PULSE 86; RESP 18; O2SAT 98
--- NOTE | 2017-06-06 08:31 | CARD ---
APPROVED REPORT EKG Measurement Heart [id number] <Conclusion> Atrial fibrillation with rapid ventricular response Abnormal ECG
[2017-06-06] MEDS: (Novolog) Insulin Aspart, Recombinant 100 u/ml 10 ml vial SC SCH (08:32)
[2017-06-06] MEDS ORDERED: Metoprolol Succinate 25 mg XL Tab PO SCH (10:00)
--- NOTE | 2017-06-06 18:14 | CARD ---
APPROVED REPORT EXAM: Two-dimensional and M-mode echocardiogram with Doppler and color Doppler. Other Information Quality : TDSRhythm : Atrial Fibrillation INDICATION Herion Dependance/ Hep C RISK FACTORS Hypertension Diabetes 2D DIMENSIONS IVSd1.0 (0.7-1.1cm)LVDd5.2 (3.9-5.9cm) PWd1.1 (0.7-1.1cm)LVDs2.8 (2.5-4.0cm) FS (%) 44.7 %LVEF (%)75.7 (>50%) M-Mode DIMENSIONS Left Atrium (MM)3.74 (2.5-4.0cm)Aortic Root4.06 (2.2-3.7cm) Aortic Cusp Exc.2.98 (1.5-2.0cm) Mitral Valve MV E Aoljgjsm35.0cm/sMV A Eyrreuwr215.6cm/sE/A ratio0.6 TDI E/Lateral E'0.0E/Medial E'0.0 Tricuspid Valve TR Peak Mowuymkx142hs/sTR Peak Gr.[id number] LEFT VENTRICLE The left ventricle is normal size. There is normal left ventricular wall thickness. The left ventricular function is normal. The left ventricular ejection fraction is within the normal range. There is normal LV segmental wall motion. Transmitral Doppler flow pattern is Grade I-abnormal relaxation pattern. RIGHT VENTRICLE The right ventricle is normal size. There is normal right ventricular wall thickness. The right ventricular systolic function is normal. ATRIA The left atrium size is normal. The right atrium size is normal. AORTIC VALVE The aortic valve is normal in structure. No aortic regurgitation is present. MITRAL VALVE The mitral valve is normal in structure. A borderline mitral valve prolapse is present. TRICUSPID VALVE There is mild pulmonary hypertension. GREAT VESSELS The aortic root is mildly enlarged. The IVC is dilated. PERICARDIAL EFFUSION There is a small loculated posterior pericardial effusion. <Conclusion> The left ventricle is normal size. There is normal left ventricular wall thickness. The left ventricular function is normal. The left ventricular ejection fraction is within the normal range. There is normal LV segmental wall motion. Transmitral Doppler flow pattern is Grade I-abnormal relaxation pattern. There is mild pulmonary hypertension. The aortic root is mildly enlarged.
== END 2017-06-06 11:31 | disposition home or self-care (01) | DRG 895 ==
LOC: C.ER 20:35 → EEVIPCON 20:35 → C.9E 23:00 → C.6T 23:30
PROVIDERS: ADMIT Internal Medicine; ATTEND Internal Medicine
PROC: HZ2ZZZZ Detoxification Services for Substance Abuse Treatment (ICD-10-PCS; principal; 2017-06-04)
PROC: HZ52ZZZ Individual Psychotherapy for Substance Abuse Treatment, Cognitive-Behavioral (ICD-10-PCS; 2017-06-04)
PROC: HZ81ZZZ Medication Management for Substance Abuse Treatment, Methadone Maintenance (ICD-10-PCS; 2017-06-04)
PROC: HZ59ZZZ Individual Psychotherapy for Substance Abuse Treatment, Supportive (ICD-10-PCS; 2017-06-04)
DX: F11.23 Opioid dependence with withdrawal (principal); G62.9 Polyneuropathy, unspecified; I48.91 Unspecified atrial fibrillation; I10 Essential (primary) hypertension; E11.9 Type 2 diabetes mellitus without complications; E66.9 Obesity, unspecified; E78.00 Pure hypercholesterolemia, unspecified; Z85.820 Personal history of malignant melanoma of skin; Z96.653 Presence of artificial knee joint, bilateral

== ENCOUNTER 2017-07-04 15:19 | Inpatient (IN) | payer MEDICARE, MEDICAID ==
[2017-07-04 15:19] VITALS: BMI 38.7
--- NOTE | 2017-07-04 15:43 | C.PDOC ---
History Of Present Illness 66 year old male with Hx of heroin abuse presents to the ED requesting detox. Patient was previously prescreened prior to coming to the ED, patient states using only heroin and last use was today. Patient has a PMHx of DM and HTN currently on medication for both, he reports being compliant with his medications. Patient denies any physical complaints at this time. Time Seen by Provider: 07/04/17 15:31 Chief Complaint (Nursing): Psychiatric Evaluation History Per: Patient History/Exam Limitations: no limitations Onset/Duration Of Symptoms: Days Current Symptoms Are (Timing): Gone Suicide/Self Injury Attempted (Context): None Modifying Factor(s): Other (Heroin) Associated Symptoms: denies: Depression, Suicidal Thoughts, Suicidal Plan Involuntary Hold By: None Recent travel outside of the [place]: No Additional History Per: Patient Past Medical History Reviewed: Historical Data, Nursing Documentation, Vital Signs Vital Signs: Last Vital Signs Temp 98.1 F 07/04/17 15:28 Pulse 86 07/04/17 15:28 Resp 19 07/04/17 15:28 BP 136/74 07/04/17 15:28 Pulse Ox 95 07/04/17 17:42 - Medical History PMH: Diabetes, Hepatitis, HTN, Hypercholesterolemia Denies: HIV, Chronic Kidney Disease, Seizures, Sexually Transmitted Disease Other Surgeries: B/L knee replacement - [facility] DETOXIFICATION SERVICES FOR SUBSTANCE ABUSE TREATMENT (06/04/17) DRUG DETOXIFICATION (03/15/15) INDIV PSYCHOTHERAPY FOR SUBSTANCE ABUSE TREATMENT, SUPPORT (06/04/17) INDIV PSYCHOTHERAPY FOR SUBSTANCE ABUSE, COGNITIV BEHAVIORAL (06/04/17) MEDS MGMT FOR SUBSTANCE ABUSE TREATMENT, METHADONE MAINT (06/04/17) TETANUS TOXOID ADMINIST (04/19/15) Family History: States: Unknown Family Hx - Social History Hx Tobacco Use: No Hx Alcohol Use: Yes (Beer) Hx Substance Use: Yes (Heroin 9-12 Bag a day.) - Immunization History Hx Tetanus Toxoid Vaccination: No (7-8 yrs ago) Hx Influenza Vaccination: Yes Hx Pneumococcal Vaccination: Yes Review Of Systems Constitutional: Negative for: Fever, Chills Cardiovascular: Negative for: Chest Pain, Palpitations Respiratory: Negative for: Cough, Shortness of Breath Gastrointestinal: Negative for: Nausea, Vomiting, Abdominal Pain Skin: Negative for: Rash Neurological: Negative for: Weakness, Numbness Psych: Negative for: Depression, Suicidal ideation Physical Exam - Physical Exam Appears: Non-toxic, No Acute Distress, Other (Obese) Skin: Normal Color, Warm, Dry Head: Atraumatic, Normacephalic Nose: No Discharge Oral Mucosa: Moist Neck: Normal ROM, Supple Chest: Symmetrical Cardiovascular: Rhythm Regular, No Murmur Respiratory: Normal Breath Sounds, No Rales, No Rhonchi, No Wheezing Gastrointestinal/Abdominal: Soft, No Tenderness, No Distention, No Rebound, Other (Obese) Extremity: Normal ROM, No Pedal Edema, No Calf Tenderness, No Swelling Neurological/Psych: Oriented x3, Normal Speech, Normal Cognition Gait: Steady ED Course And Treatment - Laboratory Results Result Diagrams: 07/04/17 15:46 07/04/17 15:46 ECG: Interpreted By Me, Viewed By Me ECG Rhythm: Atrial Fibrillation Interpretation Of ECG: AFib at 116 which appears to be new Rate From EC O2 Sat by Pulse Oximetry: 95 (On RA) Pulse Ox Interpretation: Normal Medical Decision Making Medical Decision Making: Impression : heroin detox Plan: * EKG * CXR * UA * Blood work Disposition Discussed With Dr.: Sanju Katz Jr. Doctor Will See Patient In The: Hospital - Disposition Disposition: HOSPITALIZED Disposition Time: 18:00 Condition: STABLE Forms: [facility] (Yi) - Clinical Impression Clinical Impression: Atrial fibrillation, Opiate addiction - Scribe Statement The provider has reviewed the documentation as recorded by the Scribe Arian Harden All medical record entries made by the Scribe were at my direction and personally dictated by me. I have reviewed the chart and agree that the record accurately reflects my personal performance of the history, physical exam, medical decision making, and the department course for this patient. I have also personally directed, reviewed, and agree with the discharge instructions and disposition.
[2017-07-04 15:50] LABS: BASO # 0.1 K/uL (0.0-0.2); BASO % 0.9 % (0.0-2.0); EOS # 0.3 K/uL (0.0-0.7); EOS % 3.8 % (0.0-4.0); HEMATOCRIT 33.2 % (35.0-51.0); LYMPH # 1.7 K/uL (1.0-4.3); LYMPH % 20.5 % (20.0-40.0); MEAN CORPUSCULAR HEMOGLOBIN 29.3 pg (27.0-31.0); MEAN CORPUSCULAR HGB CONC 32.6 g/dL (33.0-37.0); MEAN PLATELET VOLUME 7.4 fL (7.2-11.7); MONO # 0.9 K/uL (0.0-0.8); MONO % 10.5 % (0.0-10.0); RED CELL DISTRIBUTION WIDTH 14.8 % (11.5-14.5); WHITE BLOOD COUNT 8.4 K/uL (4.8-10.8)
[2017-07-04 15:52] LABS: RBC URINE 1 /hpf (0-3); URINE BILIRUBIN NEGATIVE (NEGATIVE); URINE BLOOD NEGATIVE (NEGATIVE); URINE COLOR Yellow (YELLOW); URINE GLUCOSE (UA) NORMAL (Normal); URINE KETONE NEGATIVE (NEGATIVE); URINE LEUKOCYTE ESTERASE NEG Leu/uL (Negative); URINE PROTEIN NEGATIVE (NEGATIVE); URINE UROBILINOGEN NORMAL mg/dL (0.2-1.0); WBC URINE < 1 /hpf (0-5)
--- NOTE | 2017-07-04 16:39 | RAD ---
HISTORY: Detox/Psy COMPARISON: Chest x-ray performed 06/04/17 TECHNIQUE: Chest, one view. FINDINGS: Examination limited by habitus. LUNGS: No focal consolidation. Please note that chest x-ray has limited sensitivity for the detection of pulmonary masses. PLEURA: No significant pleural effusion identified. No definite pneumothorax . CARDIOVASCULAR: Heart size appears within normal limits. Ectatic aorta. Dense atherosclerotic calcifications the aorta. OSSEOUS STRUCTURES: Degenerative changes. VISUALIZED UPPER ABDOMEN: Unremarkable. OTHER FINDINGS: None. IMPRESSION: No focal consolidation, significant pleural effusion, or definite pneumothorax identified.
[2017-07-04 17:06] LABS: ALCOHOL SERUM < 10 mg/dl (0-10); ALKALINE PHOSPHATASE 70 U/L (38-126); ALT/SGPT 40 U/L (21-72); AST/SGOT 28 U/L (17-59); BILIRUBIN,TOTAL 0.4 mg/dL (0.2-1.3); BLOOD UREA NITROGEN 18 mg/dL (9-20); CALCIUM 8.3 mg/dl (8.6-10.4); CARBON DIOXIDE 27 mmol/L (22-30); CHLORIDE 103 mmol/L (98-107); GFR AFRICAN-AMERICAN > 60; GLUCOSE,RANDOM 82 mg/dL (75-110); SODIUM 138 mmol/L (132-148); TOTAL PROTEIN 8.3 g/dL (6.3-8.3)
[2017-07-04] MEDS ORDERED: Aspirin 325 mg EC Tablets PO STA (17:49)
[2017-07-04] MEDS ORDERED: Aspirin 325 mg EC Tablets PO ONE (17:56)
--- NOTE | 2017-07-04 18:47 | CP.PCM.HP ---
History of Present Illness - History of Present Illness History of Present Illness: CC: Heroin Detox HPI: Patient is a 66 year old male with past medical history Diabetes Mellitus type II, HTN, Diabetic neuropathy, Hepatitis B (1970) and Hepatitis C (Cured last year) and heroin abuse presents to the ED requesting detox with last use this morning ( 3 bags of heroin). Patient was noted to be in atrial fibrillation on admission, therefore was admitted to the telemetry medical surg floor. Patient states that he utilizes at least 9 bags heroin on a daily basis. During the encounter, patient denied chest pain, SOB, palpitations, nausea, vomiting, fever, chills, abdominal pain PMD: Dr. Sreedhar Kelly PMHx: Diabetes Mellitus type II, HTN, Diabetic neuropathy, Hepatitis B (1971) and Hepatitis C ( Cured last year) PSHx: Bilateral knee replacement, umbilical hernia repair, Malignant melanoma removed from the right scapula, Bilateral axillary lymph nodes removal and right carpal tunnel. FHx: Father at age 77, had a CVA Half-brother: at age 49, hx of cardiomyopathy Medications: Metformin 1,000mg BID, Sliding scale lantus at night( avg of 40-50 units at night), Neurotin 800mg po tid and 2 tabs at HS, Lisinopril 40mg PO daily Allergies: NKDA Social History: Lives alone, , retired [place] [employer] and [employer], Heroin user for 45 years ( about 9 bags per day), ETOH socially and denies current or former use of tobacco Present on Admission - Present on Admission Any Indicators Present on Admission: No Review of Systems - Constitutional Constitutional: absent: Chills, Fatigue, Fever, Headache, Increased Appetite, Sleep Apnea, Weakness - EENT Eyes: absent: Blurred Vision, Change in Vision Ears: absent: Dizziness - Cardiovascular Cardiovascular: absent: Chest Pain, Chest Pain at Rest, Diaphoresis, Dyspnea, Lightheadedness, Paroxysmal Nocturnal Dyspnea, Slow Heart Rate, Syncope - Respiratory Respiratory: absent: Cough, Dyspnea, Dyspnea on Exertion - Gastrointestinal Gastrointestinal: absent: Abdominal Pain, Bloating, Cramping, Diarrhea - Genitourinary Genitourinary: absent: Change in Urinary Stream, Dysuria - Neurological Neurological: absent: Dizziness, Syncope, Weakness - Psychiatric Psychiatric: absent: Anxiety - Endocrine Endocrine: absent: Deepening of Voice, Fatigue, Palpitations Past Patient History - Infectious Disease Hx of Infectious Diseases: None - Past Medical History & Family History Past Medical History?: Yes - Past Social History Smoking Status: Never Smoked - CARDIAC Hx Hypercholesterolemia: Yes Hx Hypertension: Yes - PULMONARY Hx Tuberculosis: No - NEUROLOGICAL Hx Seizures: No - HEENT Hx HEENT Problems: No - RENAL Hx Chronic Kidney Disease: No - ENDOCRINE/METABOLIC Hx Endocrine Disorders: Yes Hx Diabetes Mellitus Type 2: Yes Other/Comment: neuropathy - HEMATOLOGICAL/ONCOLOGICAL Hx Human Immunodeficiency Virus (HIV): No - INTEGUMENTARY Hx Dermatological Problems: Yes Hx Melanoma: Yes (Malignant Melonoma removed 1996) - MUSCULOSKELETAL/RHEUMATOLOGICAL Hx Falls: Yes - GASTROINTESTINAL Hx Gastrointestinal Disorders: No - GENITOURINARY/GYNECOLOGICAL Hx Sexually Transmitted Disorders: No - PSYCHIATRIC Hx Substance Use: Yes (Heroin 9-12 Bag a day.) - SURGICAL HISTORY Hx Surgeries: Yes Hx Musculoskeletal Surgery: Yes (BILATERAL KNEE, CARPAL TUNNEL) Other/Comment: Umbilical Hernia Repair. B/L Knee Artho,. lymph nodes removeded from jamal axilla - ANESTHESIA Hx Anesthesia: Yes Hx Anesthesia Reactions: No Hx Malignant Hyperthermia: No Meds Allergies/Adverse Reactions: Allergies Allergy/AdvReac Type Severity Reaction Status Date / Time No Known Allergies Allergy Verified 07/04/17 15:29 Physical Exam - Head Exam Head Exam: ATRAUMATIC, NORMAL INSPECTION - Eye Exam Eye Exam: EOMI, Normal appearance - ENT Exam ENT Exam: Mucous Membranes Moist - Respiratory Exam Respiratory Exam: Clear to Auscultation Bilateral, NORMAL BREATHING PATTERN - Cardiovascular Exam Cardiovascular Exam: Tachycardia, Irregular Rhythm, +S1, +S2 - GI/Abdominal Exam GI & Abdominal Exam: Normal Bowel Sounds, Soft - Extremities Exam Extremities exam: Positive for: normal inspection - Neurological Exam Neurological exam: Alert, Oriented x3 - Psychiatric Exam Psychiatric exam: Anxious, Normal Affect, Normal Mood - Skin Skin Exam: Normal Color Results - Vital Signs Recent Vital Signs: Last Vital Signs Temp 98.1 F 07/04/17 15:28 Pulse 86 07/04/17 15:28 Resp 19 07/04/17 15:28 BP 136/74 07/04/17 15:28 Pulse Ox 95 07/04/17 17:55 - Labs Result Diagrams: 07/04/17 15:46 07/04/17 15:46 Labs: Laboratory Results - last 24 hr 1207/04/17 07/04/17 15:46 15:46 15:46 WBC 8.4 RBC 3.70 L Hgb 10.8 L Hct 33.2 L MCV 90.0 MCH 29.3 MCHC 32.6 L RDW 14.8 H Plt Count 314 MPV 7.4 Neut % (Auto) 64.3 Lymph % (Auto) 20.5 [place] % (Auto) 10.5 H Eos % (Auto) 3.8 Baso % (Auto) 0.9 Neut # 5.4 Lymph # 1.7 [place] # 0.9 H Eos # 0.3 Baso # 0.1 Sodium 138 Potassium 5.0 Chloride 103 Carbon Dioxide 27 Anion Gap 13 BUN 18 Creatinine 0.9 Est GFR ( Amer) > 60 Est GFR (Non-Af Amer) > 60 Random Glucose 82 Calcium 8.3 L Total Bilirubin 0.4 AST 28 ALT 40 Alkaline Phosphatase 70 Total Protein 8.3 Albumin 4.1 Globulin 4.2 H Albumin/Globulin Ratio 1.0 Urine Color Yellow Urine Clarity Clear Urine pH 5.0 Ur Specific [place] 1.018 Urine Protein Negative Urine Glucose (UA) Normal Urine Ketones Negative Urine Blood Negative Urine Nitrate Negative Urine Bilirubin Negative Urine Urobilinogen Normal Ur Leukocyte Esterase Neg Urine WBC (Auto) < 1 Urine RBC (Auto) 1 Ur Squamous Epith Cells < 1 Urine Opiates Screen Urine Methadone Screen Ur Barbiturates Screen Ur Phencyclidine Scrn Ur Amphetamines Screen U Benzodiazepines Scrn U Oth Cocaine Metabols U Cannabinoids Screen Alcohol, Quantitative < 10 07/04/17 15:46 WBC RBC Hgb Hct MCV MCH MCHC RDW Plt Count MPV Neut % (Auto) Lymph % (Auto) [place] % (Auto) Eos % (Auto) Baso % (Auto) Neut # Lymph # [place] # Eos # Baso # Sodium Potassium Chloride Carbon Dioxide Anion Gap BUN Creatinine Est GFR ( Amer) Est GFR (Non-Af Amer) Random Glucose Calcium Total Bilirubin AST ALT Alkaline Phosphatase Total Protein Albumin Globulin Albumin/Globulin Ratio Urine Color Urine Clarity Urine pH Ur Specific [place] Urine Protein Urine Glucose (UA) Urine Ketones Urine Blood Urine Nitrate Urine Bilirubin Urine Urobilinogen Ur Leukocyte Esterase Urine WBC (Auto) Urine RBC (Auto) Ur Squamous Epith Cells Urine Opiates Screen Positive H Urine Methadone Screen Negative Ur Barbiturates Screen Negative Ur Phencyclidine Scrn Negative Ur Amphetamines Screen Negative U Benzodiazepines Scrn Negative U Oth Cocaine Metabols Negative U Cannabinoids Screen Negative Alcohol, Quantitative Assessment & Plan (1) New onset atrial fibrillation Assessment and Plan: Cardiology Consult, Dr. Cárdenas----> Help appreciated * Management as per recommendation * F/u echocardiogram Medications: Lopressor 50mg PO BID Status: Acute (2) Opiate addiction Assessment and Plan: History of abuse UDS on admission: + for opiates Psych consult, Dr. Lowry---> help appreciated * Please contact for methadone dose as per his request Status: Acute (3) Diabetes mellitus Assessment and Plan: Accuchecks ISS low dose (Till 07/05/17), start metformin 1,000mg PO BID Hypoglycemia protocol Status: Acute (4) HTN (hypertension) Assessment and Plan: Lopressor 50mg PO BID Hold of on home medications: * Lisinopril 40mg PO daily Status: Acute (5) History of hepatitis Assessment and Plan: F/u hepatits panel Status: Acute (6) Prophylactic measure Assessment and Plan: GI: Pepcid 20mg PO daily DVT: SCDs, lovenox 30mg SC daily Crestor 20mg PO HS Heart healthy diet Status: Acute
[2017-07-04] MEDS: (Novolog) Insulin Aspart, Recombinant 100 u/ml 10 ml vial SC SCH (21:54)
[2017-07-05] MEDS: (Novolog) Insulin Aspart, Recombinant 100 u/ml 10 ml vial SC SCH (07:34)
[2017-07-05 07:53] LABS: BASO # 0.1 K/uL (0.0-0.2); BASO % 1.1 % (0.0-2.0); EOS # 0.3 K/uL (0.0-0.7); EOS % 3.9 % (0.0-4.0); HEMATOCRIT 30.5 % (35.0-51.0); LYMPH % 28.7 % (20.0-40.0); MEAN CELL VOLUME 90.2 fL (80.0-94.0); MEAN CORPUSCULAR HEMOGLOBIN 29.8 pg (27.0-31.0); MEAN PLATELET VOLUME 7.7 fL (7.2-11.7); MONO # 0.8 K/uL (0.0-0.8); MONO % 11.8 % (0.0-10.0); RED CELL DISTRIBUTION WIDTH 14.7 % (11.5-14.5); WHITE BLOOD COUNT 6.9 K/uL (4.8-10.8)
[2017-07-05 08:06] LABS: ALB/GLOB RATIO 1.4 (1.0-2.1); ALKALINE PHOSPHATASE 62 U/L (38-126); ALT/SGPT 40 U/L (21-72); AST/SGOT 26 U/L (17-59); BILIRUBIN,TOTAL 0.3 mg/dL (0.2-1.3); BLOOD UREA NITROGEN 21 mg/dL (9-20); CALCIUM 8.2 mg/dl (8.6-10.4); CARBON DIOXIDE 30 mmol/L (22-30); CHLORIDE 103 mmol/L (98-107); CHOLESTEROL 86 mg/dL (0-199); GFR AFRICAN-AMERICAN > 60; GLUCOSE,RANDOM 93 mg/dL (75-110); MAGNESIUM 1.5 mg/dL (1.6-2.3); POTASSIUM 4.7 mmol/L (3.6-5.2); SODIUM 137 mmol/L (132-148)
[2017-07-05 08:37] LABS: THYROID STIMULATING HORMONE 1.98 mIU/L (0.46-4.68)
[2017-07-05] MEDS ORDERED: Enoxaparin 40 mg Syringe SC SCH (10:00)
--- NOTE | 2017-07-05 12:25 | PCM.PSYCH ---
Initial Psychiatric Evaluation - Initial Psychiatric Evaluation Type of Admission: Voluntary Legal Status: Capacity Chief Complaint (in patient's own words): "Heroin" History of Present Illness and Precipitating Events: The patient is seen, chart reviewed and case discussed. This is a 66-year-old male, with no children, retired, lives alone. Consultation was requested because of his heroin use. The patient is here for detox but admitted to medicine due to A. fib. He is using up to 10 backs IV or intranasal heroin for about a year. However, he states that he first started opiates when he was 21 years old and used on and off. He denies all other drugs and alcohol use. He was in detox once and rehabilitation also wants. He denies current withdrawal symptoms was he states he will likely withdrawal in the afternoon as it's "starting." Denies psych symptoms. Psych history: Denies Family psych history: Denies Medical history: Diabetes, high blood pressure, obesity, A. fib Current Medications: Active Medications Generic Name Dose Route Start Last Admin Trade Name Jose PRN Reason Stop Dose Admin Aspirin 81 mg 07/05/17 10:00 07/05/17 09:28 Ecotrin PO 81 mg DAILY SHARIF Administration Enoxaparin Sodium 40 mg 07/05/17 10:00 07/05/17 09:29 Lovenox SC 40 mg DAILY SHARIF Administration Famotidine 20 mg 07/05/17 10:00 07/05/17 09:28 Pepcid PO 20 mg DAILY SHARIF Administration Gabapentin 800 mg 07/05/17 10:00 07/05/17 09:28 Neurontin PO 800 mg TID SHARIF Administration Metformin HCl 1,000 mg 07/05/17 10:00 07/05/17 09:28 Glucophage PO 1,000 mg BID SHARIF Administration Metoprolol Tartrate 50 mg 07/05/17 10:00 07/05/17 09:28 Lopressor PO 50 mg BID SHARIF Administration Rosuvastatin Calcium 20 mg 07/04/17 22:00 07/04/17 21:18 Crestor PO 20 mg HS SHARIF Administration Temazepam 30 mg 07/05/17 00:49 07/05/17 01:02 Restoril PO 30 mg HS PRN Administration Sleep Past Psychiatric History - Past Psychiatric History Previous Treatment History: None Pertinent Medical Hx (Current Medical&Sleep Prob, Allergies): Allergies Allergy/AdvReac Type Severity Reaction Status Date / Time No Known Allergies Allergy Verified 07/04/17 15:29 Lisinopril 40 mg PO DAILY 11/16/14 MetFORMIN [glucOPHAGE] 1,000 mg PO BID 11/16/14 amLODIPine [Norvasc] 1 tab PO DAILY 04/19/15 Atorvastatin [Lipitor] 40 mg PO DAILY 03/29/17 DULoxetine [Cymbalta] 30 mg PO DAILY 03/29/17 Insulin Glargine, Recombina [Lantus] 50 unit SQ HS 03/29/17 Temazepam [Restoril] 30 mg PO HS PRN 03/29/17 Review of Systems - Neurological Neurological: UNREMARKABLE - Psychiatric Psychiatric: Abnormal Sleep Pattern, Anxiety. absent: Depression, Hallucinations, Homicidal Ideation, Suicidal Ideation Mental Status Examination - Personal Presentation Personal Presentation: Looks stated age - Affect Affect: Constricted - Motor Activity Motor Activity: Calm - Reliability in Providing Information Reliability in Providing Information: Good - Speech Speech: Organized - Mood Mood: Anxious - Formal Thought Process Formal Thought Process: No Impairment - Cognitive Functions Orientation: Person, Place, Situation, Time Attention/Concentration: Attentive Estimate of Intelligence: Average Judgement: Intact, as evidence by: Insight regarding need for hospitalization Memory: Recent intact, as evidence by: Ability to recall events of the day, Remote intact, as evidenced by: Abilit to recall sig. life events - Risk Risk: Withdrawal, Diminished functioning - Strength & Assets Inventory Strength & Assets Inventory: Cooperative - Limitations Limitations: Living alone DSM 5 DX - DSM 5 DSM 5 Diagnosis: Opioid withdrawal Opioid use disorder, severe - Recommended/Plan of Treatment Treatment Recommendations and Plan of Treatment: Methadone detox starting from 25 mg. Patient agreed but the first asked for 30 mg, which was too high for his use. He will get 20 mg tomorrow morning can taper by 5 g per day As needed medications Supportive therapy and psychoeducation MD for abstinence CBT for relapse prevention Encourage MAT Refer to rehab or IOP, and self-help groups He can be transferred to detox and medically cleared. Please call on-call doctor first to check bed availability 34 min
--- NOTE | 2017-07-05 15:50 | CP.PCM.PN ---
Subjective - Date & Time of Evaluation Date of Evaluation: 07/05/17 Time of Evaluation: 15:48 - Subjective Subjective: PGY-[address] Katz's service: Pt seen and examined at bedside. Nursing reports no acute events overnight. Pt reaffirms using nine "$10 bags of heroin daily." His last use was a little over 24 hours ago. He denies withdrawal symptoms at this time but he "knows he will start feeling sick soon." Patient denies palpitations, chest pain, abdominal pain, N/V/D/C. Objective - Vital Signs/Intake and Output Vital Signs (last 24 hours): Temp Pulse Resp BP Pulse Ox 98.6 F 72 20 120/74 95 07/05/17 08:28 07/05/17 08:34 07/05/17 08:28 07/05/17 08:28 07/05/17 08:28 Intake and Output: 07/05/17 07/05/17 06:59 18:59 Intake Total 360 Output Total 0 Balance 360 - Medications Medications: Current Medications Aspirin (Ecotrin) [address] [facility] Last Admin: 07/05/17 09:28 Dose: 81 mg Enoxaparin Sodium (Lovenox) [address] [facility] Last Admin: 07/05/17 09:29 Dose: 40 mg Famotidine (Pepcid) [address] [facility] Last Admin: 07/05/17 09:28 Dose: 20 mg Gabapentin (Neurontin) [address] [facility] Last Admin: 07/05/17 13:04 Dose: 800 mg Magnesium Sulfate/Dextrose (Magnesium Sulfate 1 Gm/100 Ml D5w) 1 gm in 100 mls @ 100 mls/hr IVPB Q30M [facility] Stop: 07/05/17 16:44 Lorazepam (Ativan) 1 mg PO Q6H PRN PRN Reason: anxiety, max 3x/24h Metformin HCl (Glucophage) 1,[address] [facility] Last Admin: 07/05/17 09:28 Dose: 1,000 mg Methadone HCl (Methadone) 25 mg PO ONCE ONE Stop: 07/05/17 16:01 Methadone HCl (Methadone) [address] [facility] PRN Reason: Taper Stop: 07/10/17 08:59 Metoprolol Tartrate (Lopressor) [address] [facility] Last Admin: 07/05/17 09:28 Dose: 50 mg Rosuvastatin Calcium (Crestor) 20 mg PO HS SHARIF Last Admin: 07/04/17 21:18 Dose: 20 mg Temazepam (Restoril) 30 mg PO HS PRN PRN Reason: Sleep Last Admin: 07/05/17 01:02 Dose: 30 mg - Labs Labs: 07/05/17 07:39 07/05/17 07:39 - Constitutional Appears: Non-toxic, No Acute Distress - Head Exam Head Exam: ATRAUMATIC, NORMAL INSPECTION, NORMOCEPHALIC - Eye Exam Eye Exam: EOMI, Normal appearance - ENT Exam ENT Exam: Mucous Membranes Moist - Respiratory Exam Respiratory Exam: Clear to Ausculation Bilateral, NORMAL BREATHING PATTERN - Cardiovascular Exam Cardiovascular Exam: REGULAR RHYTHM, +S1, +S2. absent: Murmur - GI/Abdominal Exam GI & Abdominal Exam: Soft, Normal Bowel Sounds - Extremities Exam Extremities Exam: Normal Inspection. absent: Pedal Edema - Back Exam Back Exam: absent: CVA tenderness (L), CVA tenderness (R) - Neurological Exam Neurological Exam: Alert, Awake, Oriented x3 - Psychiatric Exam Psychiatric exam: Normal Affect, Normal Mood - Skin Skin Exam: Normal Color, Warm Assessment and Plan - Assessment and Plan (Free Text) Plan: New onset atrial fibrillation Assessment and Plan: Admit to tele Troponin negative x 1 Cardiology Consult, Dr. Cárdenas----> Help appreciated * Management as per recommendation * Echocardiogram (06/06/17): LV EF fxn nml. LV segmental wall motion within normal range. Grade I abnml relaxation pattern. Mild pulm HTN. Aortic root mildly enlarged. * repeat Echocardiogram (07/05/17): Cancelled per Dr Cárdenas. Patient had one month prior - not necessary Lopressor 50mg PO BID Start Eliquis 5mg PO BID [id number]: 2 pts (positive: DM, HTN - 4% risk of event per year if no anticoagulation) HAS BLED: 1 pt (positive: Age >65) Status: Acute Opiate addiction Assessment and Plan: History of abuse UDS on admission: + for opiates Psych consult, Dr. Lowry---> help appreciated * Pt for detox when medically stable * On methadone taper Status: Acute CHF, Diastolic Dysfunction Echocardiogram (06/06/17): LV EF fxn nml. LV segmental wall motion within normal range. Grade I abnml relaxation pattern. Mild pulm HTN. Aortic root mildly enlarged. Continue Lopressor 50mg PO BID Lisinopril 5mg PO Daily Diabetes mellitus Well controlled - A1C 6.1 Accuchecks ISS low dose (Till 07/05/17) start metformin 1,000mg PO BID Hypoglycemia protocol Status: Acute HTN (hypertension) Assessment and Plan: Lopressor 50mg PO BID Hold of on home medications: * Lisinopril 40mg PO daily Status: Acute History of hepatitis C Assessment and Plan: Hep C AB positive on hepatitis panel - pt reports previous curative therapy Status: Acute Electrolyte abnormality Mg 1.5 on AM lab; repleted Prophylactic measure Assessment and Plan: GI: Pepcid 20mg PO daily DVT: SCDs, lovenox 30mg SC daily Crestor 20mg PO HS Heart healthy diet Status: Acute Disposition: Pt stable for transfer to detox when bed available Zeeshan Rose PGY-[address] Katz
[2017-07-05] MEDS: Magnesium Sulfate 1 gm in D5W 1 GM/100 ML BAG IVPB SCH ×2 (16:25→16:26)
--- NOTE | 2017-07-05 19:18 | CP.PCM.CON ---
History of Present Illness - History of Present Illness History of Present Illness: 66 M with hx of HTN, DM2 and Cocaine use admitted for new onset A fib HPI: Patient is a 66 year old male with past medical history Diabetes Mellitus type II, HTN, Diabetic neuropathy, Hepatitis B (1970) and Hepatitis C (Cured last year) and heroin abuse presents to the ED requesting detox with last use this morning ( 3 bags of heroin). Patient was noted to be in atrial fibrillation on admission, therefore was admitted to the telemetry medical surg floor. Patient states that he utilizes at least 9 bags heroin on a daily basis. During the encounter, patient denied chest pain, SOB, palpitations, nausea, vomiting, fever, chills, abdominal pain PMD: Dr. Sreedhar Kelly PMHx: Diabetes Mellitus type II, HTN, Diabetic neuropathy, Hepatitis B (1970) and Hepatitis C ( Cured last year) PSHx: Bilateral knee replacement, umbilical hernia repair, Malignant melanoma removed from the right scapula, Bilateral axillary lymph nodes removal and right carpal tunnel. FHx: Father at age 77, had a CVA Half-brother: at age 49, hx of cardiomyopathy Medications: Metformin 1,000mg BID, Sliding scale lantus at night( avg of 40-50 units at night), Neurotin 800mg po tid and 2 tabs at HS, Lisinopril 40mg PO daily Allergies: NKDA Social History: Lives alone, , retired [place] [employer] and [place] [employer], Heroin user for 45 years ( about 9 bags per day), ETOH socially and denies current or former use of tobacco Present on Admission - Present on Admission Any Indicators Present on Admission: No Review of Systems - Constitutional Constitutional: absent: Chills, Fatigue, Fever, Headache, Increased Appetite, Sleep Apnea, Weakness - EENT Eyes: absent: Blurred Vision, Change in Vision Ears: absent: Dizziness - Cardiovascular Cardiovascular: absent: Chest Pain, Chest Pain at Rest, Diaphoresis, Dyspnea, Lightheadedness, Paroxysmal Nocturnal Dyspnea, Slow Heart Rate, Syncope - Respiratory Respiratory: absent: Cough, Dyspnea, Dyspnea on Exertion - Gastrointestinal Gastrointestinal: absent: Abdominal Pain, Bloating, Cramping, Diarrhea - Genitourinary Genitourinary: absent: Change in Urinary Stream, Dysuria - Neurological Neurological: absent: Dizziness, Syncope, Weakness - Psychiatric Psychiatric: absent: Anxiety - Endocrine Endocrine: absent: Deepening of Voice, Fatigue, Palpitations Meds Allergies/Adverse Reactions: Allergies Allergy/AdvReac Type Severity Reaction Status Date / Time No Known Allergies Allergy Verified 07/04/17 15:29 Physical Exam - Head Exam Head Exam: ATRAUMATIC, NORMAL INSPECTION - Eye Exam Eye Exam: EOMI, Normal appearance - ENT Exam ENT Exam: Mucous Membranes Moist - Respiratory Exam Respiratory Exam: Clear to Auscultation Bilateral, NORMAL BREATHING PATTERN - Cardiovascular Exam Cardiovascular Exam: Tachycardia, Irregular Rhythm, +S1, +S2 - GI/Abdominal Exam GI & Abdominal Exam: Normal Bowel Sounds, Soft - Extremities Exam Extremities exam: Positive for: normal inspection - Neurological Exam Neurological exam: Alert, Oriented x3 - Psychiatric Exam Psychiatric exam: Anxious, Normal Affect, Normal Mood - Skin Skin Exam: Normal Color Past Patient History - Infectious Disease Hx of Infectious Diseases: None - Past Medical History & Family History Past Medical History?: Yes - Past Social History Smoking Status: Never Smoked - CARDIAC Hx Hypercholesterolemia: Yes Hx Hypertension: Yes - PULMONARY Hx Tuberculosis: No - NEUROLOGICAL Hx Seizures: No - HEENT Hx HEENT Problems: No - RENAL Hx Chronic Kidney Disease: No - ENDOCRINE/METABOLIC Hx Endocrine Disorders: Yes Hx Diabetes Mellitus Type 2: Yes Other/Comment: neuropathy - HEMATOLOGICAL/ONCOLOGICAL Hx Human Immunodeficiency Virus (HIV): No - INTEGUMENTARY Hx Dermatological Problems: Yes Hx Melanoma: Yes (Malignant Melonoma removed 1996) - MUSCULOSKELETAL/RHEUMATOLOGICAL Hx Falls: Yes - GASTROINTESTINAL Hx Gastrointestinal Disorders: No - GENITOURINARY/GYNECOLOGICAL Hx Sexually Transmitted Disorders: No - PSYCHIATRIC Hx Substance Use: Yes (Heroin 9-12 Bag a day.) - SURGICAL HISTORY Hx Surgeries: Yes Hx Musculoskeletal Surgery: Yes (BILATERAL KNEE, CARPAL TUNNEL) Other/Comment: Umbilical Hernia Repair. B/L Knee Artho,. lymph nodes removeded from jamal axilla - ANESTHESIA Hx Anesthesia: Yes Hx Anesthesia Reactions: No Hx Malignant Hyperthermia: No Meds Allergies/Adverse Reactions: Allergies Allergy/AdvReac Type Severity Reaction Status Date / Time No Known Allergies Allergy Verified 07/04/17 15:29 - Medications Medications: Current Medications Apixaban (Eliquis) 5 mg PO BID [facility] Aspirin (Ecotrin) 81 mg PO DAILY [facility] Last Admin: 07/05/17 09:28 Dose: 81 mg Famotidine (Pepcid) 20 mg PO DAILY [facility] Last Admin: 07/05/17 09:28 Dose: 20 mg Gabapentin (Neurontin) 800 mg PO TID [facility] Last Admin: 07/05/17 17:22 Dose: 800 mg Lisinopril (Zestril) 5 mg PO DAILY [facility] Lorazepam (Ativan) 1 mg PO Q6H PRN PRN Reason: anxiety, max 3x/24h Metformin HCl (Glucophage) 1,000 mg PO BID [facility] Last Admin: 07/05/17 17:21 Dose: 1,000 mg Methadone HCl (Methadone) 20 mg PO Q24H [facility] PRN Reason: Taper Stop: 07/10/17 08:59 Metoprolol Tartrate (Lopressor) 50 mg PO BID [facility] Last Admin: 07/05/17 17:22 Dose: 50 mg Rosuvastatin Calcium (Crestor) 20 mg PO HS [facility] Last Admin: 07/04/17 21:18 Dose: 20 mg Temazepam (Restoril) 30 mg PO HS PRN PRN Reason: Sleep Last Admin: 07/05/17 01:02 Dose: 30 mg Results - Vital Signs Recent Vital Signs: Last Vital Signs Temp 98.4 F 07/05/17 16:00 Pulse 63 07/05/17 16:00 Resp 18 07/05/17 16:00 BP 112/72 07/05/17 16:00 Pulse Ox 95 07/05/17 16:00 - Labs Result Diagrams: 07/07/17 06:43 07/07/17 06:43 Labs: Laboratory Results - last 24 hr 07/04/17 07/05/17 07/05/17 21:52 06:29 07:39 WBC 6.9 RBC 3.38 L Hgb 10.1 L Hct 30.5 L MCV 90.2 MCH 29.8 MCHC 33.0 RDW 14.7 H Plt Count 275 MPV 7.7 Neut % (Auto) 54.5 Lymph % (Auto) 28.7 [place] % (Auto) 11.8 H Eos % (Auto) 3.9 Baso % (Auto) 1.1 Neut # 3.8 Lymph # 2.0 [place] # 0.8 Eos # 0.3 Baso # 0.1 Sodium Potassium Chloride Carbon Dioxide Anion Gap BUN Creatinine Est GFR ( Amer) Est GFR (Non-Af Amer) POC Glucose (mg/dL) 128 H 96 Random Glucose Hemoglobin A1c Calcium Phosphorus Magnesium Total Bilirubin AST ALT Alkaline Phosphatase CK-MB (Mass) Troponin I Total Protein Albumin Globulin Albumin/Globulin Ratio Triglycerides Cholesterol LDL Cholesterol Direct HDL Cholesterol TSH 3rd Generation Hepatitis A IgM Ab Hep Bs Antigen Hep B Core IgM Ab Hepatitis C Antibody 07/05/17 07/05/17 07/05/17 07:39 07:39 07:39 WBC RBC Hgb Hct MCV MCH MCHC RDW Plt Count MPV Neut % (Auto) Lymph % (Auto) [place] % (Auto) Eos % (Auto) Baso % (Auto) Neut # Lymph # [place] # Eos # Baso # Sodium 137 Potassium 4.7 Chloride 103 Carbon Dioxide 30 Anion Gap 9 L BUN 21 H Creatinine 1.0 Est GFR ( Amer) > 60 Est GFR (Non-Af Amer) > 60 POC Glucose (mg/dL) Random Glucose 93 Hemoglobin A1c 6.1 Calcium 8.2 L Phosphorus 4.0 Magnesium 1.5 L Total Bilirubin 0.3 AST 26 ALT 40 Alkaline Phosphatase 62 CK-MB (Mass) 1.07 Troponin I < 0.0120 Total Protein 6.0 L Albumin 3.5 Globulin 2.5 Albumin/Globulin Ratio 1.4 Triglycerides 62 Cholesterol 86 LDL Cholesterol Direct < 30 HDL Cholesterol 40 TSH 3rd Generation 1.98 Hepatitis A IgM Ab Negative Hep Bs Antigen Negative Hep B Core IgM Ab Negative Hepatitis C Antibody Reactive 07/05/17 07/05/17 11:22 16:29 WBC RBC Hgb Hct MCV MCH MCHC RDW Plt Count MPV Neut % (Auto) Lymph % (Auto) [place] % (Auto) Eos % (Auto) Baso % (Auto) Neut # Lymph # [place] # Eos # Baso # Sodium Potassium Chloride Carbon Dioxide Anion Gap BUN Creatinine Est GFR ( Amer) Est GFR (Non-Af Amer) POC Glucose (mg/dL) 110 103 Random Glucose Hemoglobin A1c Calcium Phosphorus Magnesium Total Bilirubin AST ALT Alkaline Phosphatase CK-MB (Mass) Troponin I Total Protein Albumin Globulin Albumin/Globulin Ratio Triglycerides Cholesterol LDL Cholesterol Direct HDL Cholesterol TSH 3rd Generation Hepatitis A IgM Ab Hep Bs Antigen Hep B Core IgM Ab Hepatitis C Antibody Assessment & Plan - Assessment and Plan (Free Text) Assessment: New onset atrial fibrillation Assessment and Plan: Admit to tele Troponin negative x 1 * Echocardiogram (06/06/17): LV EF fxn nml. LV segmental wall motion within normal range. Grade I abnml relaxation pattern. Mild pulm HTN. Aortic root mildly enlarged. * repeat Echocardiogram (07/05/17): Cancelled per Dr Cárdenas. Patient had one month prior - not necessary Lopressor 50mg PO BID Start Eliquis 5mg PO BID [id number]: 2 pts (positive: DM, HTN - 4% risk of event per year if no anticoagulation) HAS BLED: 1 pt (positive: Age >65) Status: Acute Opiate addiction Assessment and Plan: History of abuse UDS on admission: + for opiates Psych consult, Dr. Lowry---> help appreciated * Pt for detox when medically stable * On methadone taper Status: Acute CHF, Diastolic Dysfunction Echocardiogram (06/06/17): LV EF fxn nml. LV segmental wall motion within normal range. Grade I abnml relaxation pattern. Mild pulm HTN. Aortic root mildly enlarged. Continue Lopressor 50mg PO BID Lisinopril 5mg PO Daily Diabetes mellitus Well controlled - A1C 6.1 Accuchecks ISS low dose (Till 07/05/17) start metformin 1,000mg PO BID Hypoglycemia protocol Status: Acute HTN (hypertension) Assessment and Plan: Lopressor 50mg PO BID Hold of on home medications: * Lisinopril 40mg PO daily Status: Acute History of hepatitis C Assessment and Plan: Hep C AB positive on hepatitis panel - pt reports previous curative therapy Status: Acute Electrolyte abnormality Mg 1.5 on AM lab; repleted Prophylactic measure Assessment and Plan: GI: Pepcid 20mg PO daily DVT: SCDs, lovenox 30mg SC daily Crestor 20mg PO HS Heart healthy diet Status: Acute
--- NOTE | 2017-07-06 01:43 | CP.PCM.PN ---
Subjective - Date & Time of Evaluation Date of Evaluation: 07/06/17 Time of Evaluation: 01:40 - Subjective Subjective: Medicine Note for Dr. Katz' service Patient was seen and examined at bedside. Patient states that he is doing well and has no complaints. Patient denies chest pain, SOB, palpitations, dizziness, syncope, diaphoresis, nausea, vomiting, abdominal pain, fever and chills. Patient is tolerating diet and ambulating. Objective - Vital Signs/Intake and Output Vital Signs (last 24 hours): Temp Pulse Resp BP Pulse Ox 98.2 F 67 20 119/69 96 07/05/17 23:30 07/05/17 23:30 07/05/17 23:30 07/05/17 23:30 07/05/17 23:30 Intake and Output: 07/05/17 07/06/17 18:59 06:59 Intake Total 360 Output Total 0 Balance 360 - Medications Medications: Current Medications Aspirin (Ecotrin) 81 mg PO DAILY [facility] Last Admin: 07/05/17 09:28 Dose: 81 mg Enoxaparin Sodium (Lovenox) 40 mg SC DAILY [facility] Famotidine (Pepcid) 20 mg PO DAILY [facility] Last Admin: 07/05/17 09:28 Dose: 20 mg Gabapentin (Neurontin) 800 mg PO TID [facility] Last Admin: 07/05/17 17:22 Dose: 800 mg Lisinopril (Zestril) 5 mg PO DAILY [facility] Lorazepam (Ativan) 1 mg PO Q6H PRN PRN Reason: anxiety, max 3x/24h Metformin HCl (Glucophage) 1,000 mg PO BID [facility] Last Admin: 07/05/17 17:21 Dose: 1,000 mg Methadone HCl (Methadone) 20 mg PO Q24H [facility] PRN Reason: Taper Stop: 07/10/17 08:59 Metoprolol Tartrate (Lopressor) 50 mg PO BID [facility] Last Admin: 07/05/17 17:22 Dose: 50 mg Rosuvastatin Calcium (Crestor) 20 mg PO HS [facility] Last Admin: 07/05/17 22:45 Dose: 20 mg Temazepam (Restoril) 30 mg PO HS PRN PRN Reason: Sleep Last Admin: 07/05/17 22:45 Dose: 30 mg - Labs Labs: 07/05/17 07:39 07/05/17 07:39 - Constitutional Appears: Well, No Acute Distress - Head Exam Head Exam: ATRAUMATIC, NORMAL INSPECTION - Eye Exam Eye Exam: EOMI, Normal appearance - ENT Exam ENT Exam: Mucous Membranes Moist - Respiratory Exam Respiratory Exam: Clear to Ausculation Bilateral, NORMAL BREATHING PATTERN - Cardiovascular Exam Cardiovascular Exam: REGULAR RHYTHM, +S1, +S2 - GI/Abdominal Exam GI & Abdominal Exam: Soft, Normal Bowel Sounds. absent: Tenderness - Extremities Exam Extremities Exam: Normal Inspection. absent: Calf Tenderness, Pedal Edema - Neurological Exam Neurological Exam: Alert, Awake, Oriented x3 - Psychiatric Exam Psychiatric exam: Normal Affect - Skin Skin Exam: Normal Color Assessment and Plan (1) New onset atrial fibrillation Assessment & Plan: [id number]: 2 pts (positive: DM, HTN - 4% risk of event per year if no anticoagulation) HAS BLED: 1 pt (positive: Age >65) Cardiology Consult, Dr. Cárdenas----> Help appreciated * Management as per recommendation * As per conversation between Dr. Cárdenas and medical team, due to patient's history of heroin abuse he is high risk of fall. Will NOT start Eliquis at this time; aspirin therapy is safer until patient able to show sustained period of sobriety Labs/Imaging: Troponin negative x 1 Cardiology Consult, Dr. Cárdenas----> Help appreciated * Management as per recommendation * Echocardiogram (06/06/17): LV EF fxn nml. LV segmental wall motion within normal range. Grade I abnml relaxation pattern. Mild pulm HTN. Aortic root mildly enlarged. * repeat Echocardiogram (07/05/17): Cancelled per Dr Cárdenas. Patient had one month prior - not necessary Medications: Lopressor 50mg PO BID Aspirin 81mg PO daily Status: Acute (2) Opiate addiction Assessment & Plan: History of abuse UDS on admission: + for opiates Psych consult, Dr. Lowry---> help appreciated * Pt for detox when medically stable * On methadone taper Status: Acute (3) Diastolic CHF Assessment & Plan: Echocardiogram (06/06/17): LV EF fxn nml. LV segmental wall motion within normal range. Grade I abnml relaxation pattern. Mild pulm HTN. Aortic root mildly enlarged. Continue Lopressor 50mg PO BID Lisinopril 5mg PO Daily Status: Acute (4) Diabetes mellitus Assessment & Plan: Well controlled - A1C 6.1 Accuchecks metformin 1,000mg PO BID Hypoglycemia protocol Status: Acute (5) HTN (hypertension) Assessment & Plan: Lopressor 50mg PO BID Lisinopril 5mg PO daily Status: Acute (6) History of hepatitis Assessment & Plan: Hep C AB positive on hepatitis panel - pt reports previous curative therapy Status: Acute (7) Electrolyte abnormality Assessment & Plan: Mg 1.5 lab (07/05/17); repleted Monitor with today's lab Status: Acute (8) Prophylactic measure Assessment & Plan: GI: Pepcid 20mg PO daily DVT: SCDs, lovenox 30mg SC daily Crestor 20mg PO HS Heart healthy diet Disposition: Pt stable for transfer to detox when bed available All management discussed with Dr. Katz Status: Acute
[2017-07-06 06:36] LABS: BASO # 0.1 K/uL (0.0-0.2); BASO % 1.1 % (0.0-2.0); EOS # 0.3 K/uL (0.0-0.7); EOS % 3.9 % (0.0-4.0); HEMATOCRIT 31.3 % (35.0-51.0); LYMPH # 1.9 K/uL (1.0-4.3); LYMPH % 28.7 % (20.0-40.0); MEAN CELL VOLUME 90.1 fL (80.0-94.0); MEAN CORPUSCULAR HEMOGLOBIN 30.1 pg (27.0-31.0); MEAN CORPUSCULAR HGB CONC 33.4 g/dL (33.0-37.0); MEAN PLATELET VOLUME 7.6 fL (7.2-11.7); MONO # 0.8 K/uL (0.0-0.8); MONO % 11.9 % (0.0-10.0); RED CELL DISTRIBUTION WIDTH 14.4 % (11.5-14.5); WHITE BLOOD COUNT 6.7 K/uL (4.8-10.8)
[2017-07-06 06:50] LABS: ALKALINE PHOSPHATASE 64 U/L (38-126); ALT/SGPT 42 U/L (21-72); AST/SGOT 27 U/L (17-59); BILIRUBIN,TOTAL 0.3 mg/dL (0.2-1.3); BLOOD UREA NITROGEN 24 mg/dL (9-20); CALCIUM 8.3 mg/dl (8.6-10.4); CARBON DIOXIDE 29 mmol/L (22-30); CHLORIDE 105 mmol/L (98-107); GFR AFRICAN-AMERICAN > 60; GLUCOSE,RANDOM 123 mg/dL (75-110); MAGNESIUM 1.6 mg/dL (1.6-2.3); PHOSPHOROUS 3.3 mg/dL (2.5-4.5); POTASSIUM 4.5 mmol/L (3.6-5.2); SODIUM 137 mmol/L (132-148); TOTAL PROTEIN 6.9 g/dL (6.3-8.3)
[2017-07-06 06:54] LABS: ALB/GLOB RATIO 0.9 (1.0-2.1)
[2017-07-06] MEDS: Enoxaparin 40 mg Syringe SC SCH (09:01)
--- NOTE | 2017-07-06 21:17 | CARD ---
APPROVED REPORT EKG Measurement Heart [id number] <Conclusion> Normal sinus rhythm Normal ECG
[2017-07-06] MEDS ORDERED: Alum-Mag Hydrox-Simethicone Susp (30 mL) PO ONE (22:57)
[2017-07-06 23:22] VITALS: RESP 20
--- NOTE | 2017-07-07 05:27 | CP.PCM.PN ---
Subjective - Date & Time of Evaluation Date of Evaluation: 07/07/17 Time of Evaluation: 00:50 - Subjective Subjective: Medicine Note for Dr. Katz' service Patient was seen and examined at bedside. Patient states that he is doing well and has no complaints. Patient denies chest pain SOB, palpitations, dizziness, syncope, diaphoresis, nausea, vomiting, abdominal pain, fever and chills. Patient is tolerating diet and ambulating. An hour after the encounter, I was notified by patient's nurse for complaints of chest pain/ indigestion; patient was given maalox and protonix 40mg PO once and two EKG with no changes compared to old EKG and troponin was ordered. Patient responded well to the protonix and there after went to sleep. Objective - Vital Signs/Intake and Output Vital Signs (last 24 hours): Temp Pulse Resp BP Pulse Ox 99.0 F 70 20 152/89 H 100 07/06/17 23:21 07/06/17 23:21 07/06/17 23:21 07/06/17 23:21 07/06/17 23:21 - Medications Medications: Current Medications Aspirin (Ecotrin) 81 mg PO DAILY [facility] Last Admin: 07/06/17 09:02 Dose: 81 mg Enoxaparin Sodium (Lovenox) 40 mg SC DAILY [facility] Last Admin: 07/06/17 09:01 Dose: 40 mg Famotidine (Pepcid) 20 mg PO DAILY [facility] Last Admin: 07/06/17 09:02 Dose: 20 mg Gabapentin (Neurontin) 800 mg PO TID [facility] Last Admin: 07/06/17 17:26 Dose: 800 mg Lisinopril (Zestril) 5 mg PO DAILY [facility] Last Admin: 07/06/17 09:02 Dose: 5 mg Lorazepam (Ativan) 1 mg PO Q6H PRN PRN Reason: anxiety, max 3x/24h Last Admin: 07/07/17 04:45 Dose: 1 mg Metformin HCl (Glucophage) 1,000 mg PO BID [facility] Last Admin: 07/06/17 17:25 Dose: 1,000 mg Methadone HCl (Methadone) 20 mg PO Q24H [facility] PRN Reason: Taper Stop: 07/10/17 08:59 Last Admin: 07/06/17 09:01 Dose: 20 mg Metoprolol Tartrate (Lopressor) 50 mg PO BID [facility] Last Admin: 07/06/17 17:25 Dose: 50 mg Rosuvastatin Calcium (Crestor) 20 mg PO HS [facility] Last Admin: 07/06/17 22:31 Dose: 20 mg Temazepam (Restoril) 30 mg PO HS PRN PRN Reason: Sleep Last Admin: 07/06/17 22:31 Dose: 30 mg - Labs Labs: 07/06/17 06:29 07/06/17 06:29 - Constitutional Appears: Well, No Acute Distress - Head Exam Head Exam: ATRAUMATIC, NORMAL INSPECTION - Eye Exam Eye Exam: EOMI, Normal appearance - ENT Exam ENT Exam: Mucous Membranes Moist - Respiratory Exam Respiratory Exam: Clear to Ausculation Bilateral, NORMAL BREATHING PATTERN - Cardiovascular Exam Cardiovascular Exam: REGULAR RHYTHM, +S1, +S2 - GI/Abdominal Exam GI & Abdominal Exam: Soft, Normal Bowel Sounds. absent: Guarding, Rigid, Tenderness - Extremities Exam Extremities Exam: Normal Inspection. absent: Calf Tenderness, Pedal Edema - Neurological Exam Neurological Exam: Alert, Awake, Oriented x3 - Psychiatric Exam Psychiatric exam: Normal Affect, Normal Mood - Skin Skin Exam: Normal Color Assessment and Plan (1) New onset atrial fibrillation Assessment & Plan: [id number]: 2 pts (positive: DM, HTN - 4% risk of event per year if no anticoagulation) HAS BLED: 1 pt (positive: Age >65) Cardiology Consult, Dr. Cárdenas----> Help appreciated * Management as per recommendation * As per conversation between Dr. Cárdenas and medical team, due to patient's history of heroin abuse he is high risk of fall. Will NOT start Eliquis at this time; aspirin therapy is safer until patient able to show sustained period of sobriety Labs/Imaging: Troponin negative x 1 TSH: 1.98 Cardiology Consult, Dr. Cárdenas----> Help appreciated * Management as per recommendation * Echocardiogram (06/06/17): LV EF fxn nml. LV segmental wall motion within normal range. Grade I abnml relaxation pattern. Mild pulm HTN. Aortic root mildly enlarged. * repeat Echocardiogram (07/05/17): Cancelled per Dr Cárdenas. Patient had one month prior - not necessary Medications: Lopressor 50mg PO BID Aspirin 81mg PO daily Status: Acute (2) Opiate addiction Assessment & Plan: History of abuse UDS on admission: + for opiates Psych consult, Dr. Lowry---> help appreciated * Pt for detox when medically stable * On methadone taper Status: Acute (3) Diastolic CHF Assessment & Plan: Echocardiogram (06/06/17): LV EF fxn nml. LV segmental wall motion within normal range. Grade I abnml relaxation pattern. Mild pulm HTN. Aortic root mildly enlarged. Continue Lopressor 50mg PO BID Lisinopril 5mg PO Daily Status: Acute (4) Diabetes mellitus Assessment & Plan: Well controlled - A1C 6.1 Accuchecks metformin 1,000mg PO BID Hypoglycemia protocol Status: Acute (5) HTN (hypertension) Assessment & Plan: Lopressor 50mg PO BID Lisinopril 5mg PO daily Status: Acute (6) History of hepatitis Assessment & Plan: Hep C AB positive on hepatitis panel - pt reports previous curative therapy Status: Acute (7) Electrolyte abnormality Assessment & Plan: Mg 1.5 lab (07/05/17); repleted Monitor with today's lab Status: Acute (8) Prophylactic measure Assessment & Plan: GI: Pepcid 20mg PO daily DVT: SCDs, lovenox 30mg SC daily Crestor 20mg PO HS Heart healthy diet Lipid Panel: T, Chol: 86, LDL<30, HDL: 40 Disposition: Pt stable for transfer to detox when bed available All management discussed with Dr. Katz Status: Acute
[2017-07-07 06:47] LABS: BASO # 0.1 K/uL (0.0-0.2); BASO % 0.5 % (0.0-2.0); EOS # 0.1 K/uL (0.0-0.7); EOS % 0.6 % (0.0-4.0); HEMATOCRIT 32.9 % (35.0-51.0); LYMPH # 0.7 K/uL (1.0-4.3); LYMPH % 6.7 % (20.0-40.0); MEAN CELL VOLUME 88.2 fL (80.0-94.0); MEAN CORPUSCULAR HEMOGLOBIN 30.1 pg (27.0-31.0); MEAN CORPUSCULAR HGB CONC 34.1 g/dL (33.0-37.0); MEAN PLATELET VOLUME 7.8 fL (7.2-11.7); MONO # 0.9 K/uL (0.0-0.8); MONO % 8.1 % (0.0-10.0); PLATELET COUNT 275 K/uL (130-400); RED CELL DISTRIBUTION WIDTH 14.1 % (11.5-14.5); WHITE BLOOD COUNT 10.8 K/uL (4.8-10.8)
[2017-07-07 07:05] LABS: ALB/GLOB RATIO 1.3 (1.0-2.1); ALKALINE PHOSPHATASE 69 U/L (38-126); ALT/SGPT 38 U/L (21-72); AST/SGOT 19 U/L (17-59); BILIRUBIN,TOTAL 0.6 mg/dL (0.2-1.3); BLOOD UREA NITROGEN 19 mg/dL (9-20); CALCIUM 8.5 mg/dl (8.6-10.4); CARBON DIOXIDE 27 mmol/L (22-30); CHLORIDE 101 mmol/L (98-107); GFR AFRICAN-AMERICAN > 60; GLUCOSE,RANDOM 185 mg/dL (75-110); MAGNESIUM 1.2 mg/dL (1.6-2.3); PHOSPHOROUS 2.6 mg/dL (2.5-4.5); POTASSIUM 3.9 mmol/L (3.6-5.2); SODIUM 136 mmol/L (132-148); TOTAL PROTEIN 6.7 g/dL (6.3-8.3)
[2017-07-07 08:38] LABS: BASOPHIL 1 % (0-2); NEUTROPHIL 88 % (50-75); TOTAL CELLS COUNTED 100
[2017-07-07 09:08] VITALS: BP 146/92; PULSE 114; TEMP 98.7; O2SAT 96
[2017-07-07] MEDS: Enoxaparin 40 mg Syringe SC SCH (09:18)
--- NOTE | 2017-07-07 09:36 | CARD ---
APPROVED REPORT EKG Measurement Heart [id number] <Conclusion> Atrial fibrillation with rapid ventricular response Abnormal ECG
--- NOTE | 2017-07-07 13:53 | CP.PCM.DIS ---
Provider - Provider Date of Admission: 07/04/17 17:53 Attending physician: Sanju Katz Jr, MD Primary care physician: Dr. Sreedhar Kelly Consults: Psych- Dr. Lowry Cardio- Dr. Cárdenas Time Spent in preparation of Discharge (in minutes): 45 Diagnosis - Discharge Diagnosis (1) Atrial fibrillation Status: Acute Comment: was rate controlled on Lopressor 50mg PO BID. No anticoagulation as per Dr. Cárdenas. Patient signed out [facility] Course - Lab Results Lab Results: Most Recent Lab Values WBC 10.8 K/uL (4.8-10.8) D 07/07/17 06:43 RBC 3.73 Mil/uL (4.40-5.90) L 07/07/17 06:43 Hgb 11.2 g/dL (12.0-18.0) L 07/07/17 06:43 Hct 32.9 % (35.0-51.0) L 07/07/17 06:43 MCV 88.2 fL (80.0-94.0) 07/07/17 06:43 MCH 30.1 pg (27.0-31.0) 07/07/17 06:43 MCHC 34.1 g/dL (33.0-37.0) 07/07/17 06:43 RDW 14.1 % (11.5-14.5) 07/07/17 06:43 Plt Count 275 K/uL (130-400) 07/07/17 06:43 MPV 7.8 fL (7.2-11.7) 07/07/17 06:43 Neut % (Auto) 84.1 % (50.0-75.0) H 07/07/17 06:43 Lymph % (Auto) 6.7 % (20.0-40.0) L 07/07/17 06:43 Rooks % (Auto) 8.1 % (0.0-10.0) 07/07/17 06:43 Eos % (Auto) 0.6 % (0.0-4.0) 07/07/17 06:43 Baso % (Auto) 0.5 % (0.0-2.0) 07/07/17 06:43 Neut # 9.0 K/uL (1.8-7.0) H 07/07/17 06:43 Lymph # 0.7 K/uL (1.0-4.3) L 07/07/17 06:43 Rooks # 0.9 K/uL (0.0-0.8) H 07/07/17 06:43 Eos # 0.1 K/uL (0.0-0.7) 07/07/17 06:43 Baso # 0.1 K/uL (0.0-0.2) 07/07/17 06:43 Neutrophils % (Manual) 88 % (50-75) H 07/07/17 06:43 Band Neutrophils % 4 % (0-2) H 07/07/17 06:43 Lymphocytes % (Manual) 3 % (20-40) L 07/07/17 06:43 Monocytes % (Manual) 4 % (0-10) 07/07/17 06:43 Basophils % (Manual) 1 % (0-2) 07/07/17 06:43 Platelet Estimate Normal (NORMAL) 07/07/17 06:43 RBC Morphology Normal 07/07/17 06:43 Sodium 136 mmol/L (132-148) 07/07/17 06:43 Potassium 3.9 mmol/L (3.6-5.2) 07/07/17 06:43 Chloride 101 mmol/L (98-107) 07/07/17 06:43 Carbon Dioxide 27 mmol/L (22-30) 07/07/17 06:43 Anion Gap 12 (10-20) 07/07/17 06:43 BUN 19 mg/dL (9-20) 07/07/17 06:43 Creatinine 0.9 mg/dL (0.8-1.5) 07/07/17 06:43 Est GFR ( Amer) > 60 07/07/17 06:43 Est GFR (Non-Af Amer) > 60 07/07/17 06:43 POC Glucose (mg/dL) 182 mg/dL (65-110) H 07/07/17 06:40 Random Glucose 185 mg/dL (75-110) H 07/07/17 06:43 Hemoglobin A1c 6.1 % (4.2-6.5) 07/05/17 07:39 Calcium 8.5 mg/dl (8.6-10.4) L 07/07/17 06:43 Phosphorus 2.6 mg/dL (2.5-4.5) 07/07/17 06:43 Magnesium 1.2 mg/dL (1.6-2.3) L 07/07/17 06:43 Total Bilirubin 0.6 mg/dL (0.2-1.3) 07/07/17 06:43 AST 19 U/L (17-59) 07/07/17 06:43 ALT 38 U/L (21-72) 07/07/17 06:43 Alkaline Phosphatase 69 U/L (38-126) 07/07/17 06:43 CK-MB (Mass) 1.07 ng/mL (0.0-3.38) 07/05/17 07:39 Troponin I < 0.0120 ng/mL (0.00-0.120) 07/07/17 06:43 Total Protein 6.7 g/dL (6.3-8.3) 07/07/17 06:43 Albumin 3.8 g/dL (3.5-5.0) 07/07/17 06:43 Globulin 2.9 gm/dL (2.2-3.9) 07/07/17 06:43 Albumin/Globulin Ratio 1.3 (1.0-2.1) 07/07/17 06:43 Triglycerides 62 mg/dL (0-149) 07/05/17 07:39 Cholesterol 86 mg/dL (0-199) 07/05/17 07:39 LDL Cholesterol Direct < 30 mg/dL (0-129) 07/05/17 07:39 HDL Cholesterol 40 mg/dL (30-70) 07/05/17 07:39 TSH 3rd Generation 1.98 mIU/L (0.46-4.68) 07/05/17 07:39 Urine Color Yellow (YELLOW) 07/04/17 15:46 Urine Clarity Clear (Clear) 07/04/17 15:46 Urine pH 5.0 (5.0-8.0) 07/04/17 15:46 Ur Specific Gallina 1.018 (1.003-1.030) 07/04/17 15:46 Urine Protein Negative mg/dL (NEGATIVE) 07/04/17 15:46 Urine Glucose (UA) Normal mg/dL (Normal) 07/04/17 15:46 Urine Ketones Negative mg/dL (NEGATIVE) 07/04/17 15:46 Urine Blood Negative (NEGATIVE) 07/04/17 15:46 Urine Nitrate Negative (NEGATIVE) 07/04/17 15:46 Urine Bilirubin Negative (NEGATIVE) 07/04/17 15:46 Urine Urobilinogen Normal mg/dL (0.2-1.0) 07/04/17 15:46 Ur Leukocyte Esterase Neg Jud/uL (Negative) 07/04/17 15:46 Urine WBC (Auto) < 1 /hpf (0-5) 07/04/17 15:46 Urine RBC (Auto) 1 /hpf (0-3) 07/04/17 15:46 Ur Squamous Epith Cells < 1 /hpf (0-5) 07/04/17 15:46 Urine Opiates Screen Positive (NEGATIVE) H 07/04/17 15:46 Urine Methadone Screen Negative (NEGATIVE) 07/04/17 15:46 Ur Barbiturates Screen Negative (NEGATIVE) 07/04/17 15:46 Ur Phencyclidine Scrn Negative (NEGATIVE) 07/04/17 15:46 Ur Amphetamines Screen Negative (NEGATIVE) 07/04/17 15:46 U Benzodiazepines Scrn Negative (NEGATIVE) 07/04/17 15:46 U Oth Cocaine Metabols Negative (NEGATIVE) 07/04/17 15:46 U Cannabinoids Screen Negative (NEGATIVE) 07/04/17 15:46 Alcohol, Quantitative < 10 mg/dl (0-10) 07/04/17 15:46 Hepatitis A IgM Ab Negative (NEGATIVE) 07/05/17 07:39 Hep Bs Antigen Negative (NEGATIVE) 07/05/17 07:39 Hep B Core IgM Ab Negative (NEGATIVE) 07/05/17 07:39 Hepatitis C Antibody Reactive (NEGATIVE) 07/05/17 07:39 - Hospital Course Hospital Course: As per admission documentation: HPI: Patient is a 66 year old male with past medical history Diabetes Mellitus type II, HTN, Diabetic neuropathy, Hepatitis B (1971) and Hepatitis C (Cured last year) and heroin abuse presents to the ED requesting detox with last use this morning ( 3 bags of heroin). Patient was noted to be in atrial fibrillation on admission, [facility]. Patient states that he utilizes at least 9 bags heroin on a daily basis. During the encounter, patient denied chest pain, SOB, palpitations, nausea, vomiting, fever, chills, abdominal pain Patient was admitted for evaluation of new on set atrial fibrillation and heroin detox. Patient was seen by Dr. Cárdenas, started on Lopressor 50mg PO BID, to control rate. Anticoagulation was not recommended, as per Dr. Cárdenas, due to patients heroin use and high risk of falls, patient was to continue aspirin until patient shows a longer period of sobriety. Patient was receiving methadone while in the hospital and cleared for transfer to inpatient detox, however, patient signed out against medical advice Discharge Exam - Head Exam Head Exam: ATRAUMATIC, NORMAL INSPECTION Discharge Plan - Follow Up Plan Condition: STABLE Disposition: AGAINST MEDICAL ADVICE
--- NOTE | 2017-07-08 22:17 | CARD ---
APPROVED REPORT EKG Measurement Heart [id number] <Conclusion> Atrial fibrillation with rapid ventricular response Abnormal ECG
--- NOTE | 2017-07-08 22:18 | CARD ---
APPROVED REPORT EKG Measurement Heart [id number] <Conclusion> Atrial fibrillation with rapid ventricular response Abnormal ECG
== END 2017-07-07 09:24 | disposition left against medical advice (07) | DRG 309 ==
LOC: C.ER 15:19 → C.9E 17:53 → C.6T 18:31
PROVIDERS: ADMIT Internal Medicine; ATTEND Internal Medicine
DX: I48.91 Unspecified atrial fibrillation (principal); F11.23 Opioid dependence with withdrawal; E11.40 Type 2 diabetes mellitus with diabetic neuropathy, unspecified; I11.0 Hypertensive heart disease with heart failure; I50.30 Unspecified diastolic (congestive) heart failure

== ENCOUNTER 2018-01-21 20:09 | Emergency (ER) | payer MEDICARE, MEDICAID ==
[2018-01-21 20:10] VITALS: BMI 38.7
[2018-01-21 20:21] VITALS: BP 128/71; PULSE 60; RESP 18; TEMP 98.4; O2SAT 95
[2018-01-21] MEDS ORDERED: Lidocaine 1% Inj (20ml) INFIL ONE (20:49)
[2018-01-21] MEDS ORDERED: Lidocaine Hydrochloride 10 ML INJ ONE (20:56)
--- NOTE | 2018-01-21 21:13 | C.PDOC ---
History Of Present Illness 67 year old male presents to the ER after he brushed his left leg on a chair and began to bleed. Patient reports he is currently on xarelto. Denies other injuries. Time Seen by Provider: 01/21/18 20:40 Chief Complaint (Nursing): Abnormal Skin Integrity History Per: Patient History/Exam Limitations: no limitations Onset/Duration Of Symptoms: Hrs Current Symptoms Are (Timing): Still Present Location Of Injury: Left: Leg Quality Of Symptoms: Other (Bleeding) Recent travel outside of the [place]: No Past Medical History Reviewed: Historical Data, Nursing Documentation, Vital Signs Vital Signs: Last Vital Signs Temp 98.4 F 01/21/18 20:18 Pulse 60 01/21/18 20:18 Resp 18 01/21/18 20:18 BP 128/71 01/21/18 20:18 Pulse Ox 95 01/21/18 21:13 - Medical History PMH: Diabetes, Hepatitis, HTN, Hypercholesterolemia - [facility] Procedures DETOXIFICATION SERVICES FOR SUBSTANCE ABUSE TREATMENT (06/04/17) DRUG DETOXIFICATION (03/15/15) INDIV PSYCHOTHERAPY FOR SUBSTANCE ABUSE TREATMENT, SUPPORT (06/04/17) INDIV PSYCHOTHERAPY FOR SUBSTANCE ABUSE, COGNITIV BEHAVIORAL (06/04/17) MEDS MGMT FOR SUBSTANCE ABUSE TREATMENT, METHADONE MAINT (06/04/17) TETANUS TOXOID ADMINIST (04/19/15) Family History: States: Unknown Family Hx - Social History Hx Tobacco Use: No Hx Alcohol Use: Yes (socially) Hx Substance Use: Yes (Heroin 9-12 Bag a day.) - Immunization History Hx Tetanus Toxoid Vaccination: No (7-8 yrs ago) Hx Influenza Vaccination: Yes Hx Pneumococcal Vaccination: Yes Review Of Systems Except As Marked, All Systems Reviewed And Found Negative. Skin: Positive for: Other (Bleeding from varicose vein) Physical Exam - Physical Exam Appears: Non-toxic Skin: Warm, Dry Head: Atraumatic, Normacephalic Eye(s): bilateral: Normal Inspection Extremity: Normal ROM (x4), Capillary Refill (<2 seconds), Other (Bleeding varicose vein to distal mid tibia) Pulses: Left Dorsalis Pedis: Normal, Right Dorsalis Pedis: Normal Neurological/Psych: Oriented x3, Normal Speech, Normal Motor, Normal Sensation Gait: Steady ED Course And Treatment O2 Sat by Pulse Oximetry: 95 (room air) Pulse Ox Interpretation: Normal Laceration - Laceration Repair Left Leg Wound Length (In cm): 1 Wound Cleansed With: Sterile Saline Anesthesia: Lidocaine 1% Wound Examination: Irrigated With Saline Wound Closure: Suture (x4) Suture Technique And Material Used: Nylon (4-0) Medical Decision Making Medical Decision Making: Assessment is bleeding varicose vein. Patient tolerated laceration repair, hemostasis achieved, will discharge home with instructions to follow up for suture removal. Disposition Counseled Patient/Family Regarding: Diagnosis, Need For Followup - Disposition Disposition: HOME/ ROUTINE Disposition Time: 21:11 Condition: STABLE Additional Instructions: follow up with your doctor within 2 days call to make an appointment suture removal in 5-7 days return to ER if symptoms worsens or progress Instructions: Varicose Veins and Other Vein Disease in the Legs Forms: [facility] (Sinhala), General Discharge Instructions - Clinical Impression Clinical Impression: Varicose vein of leg - Scribe Statement The provider has reviewed the documentation as recorded by the Scribjulio Munroe All medical record entries made by the Terranceibjuilo were at my direction and personally dictated by me. I have reviewed the chart and agree that the record accurately reflects my personal performance of the history, physical exam, medical decision making, and the department course for this patient. I have also personally directed, reviewed, and agree with the discharge instructions and disposition.
== END 2018-01-21 21:47 | disposition home or self-care (01) ==
LOC: C.ER 20:09
DX: I83.892 Varicose veins of left lower extremity with other complications (principal)

== ENCOUNTER 2018-01-28 13:52 | Emergency (ER) | payer MEDICARE, MEDICAID ==
[2018-01-28 13:52] VITALS: BMI 38.7
[2018-01-28 14:15] VITALS: RESP 16; TEMP 98
--- NOTE | 2018-01-28 14:26 | C.PDOC ---
History Of Present Illness 67yo male, comes to ER for evaluation after he tripped and fell 5 days ago and has been having persistent pain and limited movement to his left shoulder. He is on a daily regimen of Xaralto. He denies any loss of consciousness at the time of fall. Patient states he thought the pain would subside on its own but is still unable to move his shoulder. Patient was concerned for a possible fracture, prompting his visit today. He denies any weakness, numbness or tingling to his left arm. Otherwise, he has no other medical complaints. SP TRIP AND FALL 5 DAYS AGO CO PERSIST PAIN, LIMITED MOVEMENT L SHOULDER. ON XARALTO. DENIES LOC. PS THOUGHT PAIN WOULD SUBSIDE BUT STILL UNABLE TO MOVE SHOULDER, CONCERNED FOR POSSIBLE FX. DENIES OTHER ASSOC INJURY. past medical history Diabetes Mellitus type II, HTN, Diabetic neuropathy, Hepatitis B (1970) and Hepatitis C (Cured last year) and heroin abuse EXAM MILD DIST NONTOXIC EXT L SHOULDER NO GROSS SUBLUX; LIMTIED ROM DUE TO PAIN; +GEN TEND; +SWELLING W DIFFUSE HEMATOMA L TOP TRAPEZIUS, DELTOID, UPPER HUMERUS. AROM ELBOW, WRIST WO DIFF SKIN INTACT REMAINDER NEG Time Seen by Provider: 01/28/18 14:16 Chief Complaint (Nursing): Upper Extremity Problem/Injury History Per: Patient History/Exam Limitations: no limitations Onset/Duration Of Symptoms: Days (5) Current Symptoms Are (Timing): Still Present Quality: "Pain" Additional History Per: Patient Past Medical History Reviewed: Historical Data, Nursing Documentation, Vital Signs Vital Signs: Last Vital Signs Temp 98 F 01/28/18 14:13 Pulse 70 01/28/18 15:29 Resp 16 01/28/18 15:29 BP 154/85 H 01/28/18 15:29 Pulse Ox 97 01/28/18 15:29 - Medical History PMH: Diabetes, Hepatitis, HTN, Hypercholesterolemia Denies: HIV, Chronic Kidney Disease, Seizures, Sexually Transmitted Disease Surgical History: No Surg Hx - [facility] Procedures DETOXIFICATION SERVICES FOR SUBSTANCE ABUSE TREATMENT (06/04/17) DRUG DETOXIFICATION (03/15/15) INDIV PSYCHOTHERAPY FOR SUBSTANCE ABUSE TREATMENT, SUPPORT (06/04/17) INDIV PSYCHOTHERAPY FOR SUBSTANCE ABUSE, COGNITIV BEHAVIORAL (06/04/17) MEDS MGMT FOR SUBSTANCE ABUSE TREATMENT, METHADONE MAINT (06/04/17) TETANUS TOXOID ADMINIST (04/19/15) Family History: States: Unknown Family Hx - Social History Hx Tobacco Use: No Hx Alcohol Use: Yes (socially) Hx Substance Use: Yes (Heroin 9-12 Bag a day.) - Immunization History Hx Tetanus Toxoid Vaccination: No (7-8 yrs ago) Hx Influenza Vaccination: Yes Hx Pneumococcal Vaccination: Yes Review Of Systems Except As Marked, All Systems Reviewed And Found Negative. Constitutional: Negative for: Fever, Chills Cardiovascular: Negative for: Chest Pain Respiratory: Negative for: Shortness of Breath Musculoskeletal: Positive for: Shoulder Pain (left sided) Neurological: Negative for: Weakness, Numbness, Other (loss of consciousness) Physical Exam - Physical Exam Appears: Non-toxic, Other (mild painful distress) Skin: Warm, Dry, No Ecchymosis Head: Atraumatic, Normacephalic, No Tenderness, No Swelling, No Abrasion, No Laceration Eye(s): bilateral: Normal Inspection, PERRL, EOMI Neck: Normal ROM, Supple Chest: Symmetrical, No Tenderness Cardiovascular: Rhythm Regular Respiratory: Normal Breath Sounds Gastrointestinal/Abdominal: Soft, No Tenderness Extremity: Normal ROM (+ Active ROM of left elbow, wrist without difficulty; + Limited ROM left shoulder due to pain), Tenderness (generalized tenderness to left shoulder), Swelling (swelling with diffuse hematoma to left upper trapezius , deltoid and upper humerus.), Other (left shoulder with no gross subluxation) Neurological/Psych: Oriented x3, Normal Speech, Normal Cognition, Normal Motor, Normal Sensation Gait: Steady ED Course And Treatment O2 Sat by Pulse Oximetry: 95 (RA) Pulse Ox Interpretation: Normal - Other Rad XR left clavicle X-Ray: Interpreted by Me, Viewed By Me Interpretation: Distal clavicle fracture. XR left shoulder X-Ray: Interpreted by Me, Viewed By Me Interpretation: negative Progress Note: Tramadol 50mg PO given for pain relief. Case discussed with Dr. Bruce who is agreeable with plan to place patient in shoulder immobilizer and follow up in his office. Patient instructed to follow up with his PMD and protein scientist without fail as well. Progress - Re-Evaluation Re-evaluation Note: 01/28/18 14:57 d/w dr bruce ortho distribution sales representative: xrays reviewed, aware of er findings. shoulder immobilizer, fu office, fu pmd for xaralto mgmt. - Data Reviewed Data Reviewed: Diagnostic imaging - Continuity of Care Discussed pt. case with sr. consultant/specialty: Orthopedic Surgery Disposition Counseled Patient/Family Regarding: Studies Performed, Diagnosis, Need For Followup, Rx Given - Disposition Referrals: [facility] [Outside] [facility] [Outside] Fidel Bruce III, MD [Staff Provider] - Disposition: HOME/ ROUTINE Disposition Time: 15:02 Condition: IMPROVED Prescriptions: Acetaminophen/Codeine [Tylenol/Codeine 300 MG/30 MG] 2 tab PO Q6H #20 tab Instructions: Clavicle Fracture (DC) Forms: [employer] (Japanese) - Clinical Impression Clinical Impression: Clavicle fracture - Scribe Statement The provider has reviewed the documentation as recorded by the Heber Ackerman Provider Attestation: All medical record entries made by the Heber were at my direction and personally dictated by me. I have reviewed the chart and agree that the record accurately reflects my personal performance of the history, physical exam, medical decision making, and the department course for this patient. I have also personally directed, reviewed, and agree with the discharge instructions and disposition.
--- NOTE | 2018-01-28 15:15 | RAD ---
Date of service: 01/28/2018 PROCEDURE: Radiographs of the Left Shoulder HISTORY: TRAUMA COMPARISON: No prior. FINDINGS: BONES: Comminuted fracture of the distal clavicle with mild depression of the distal fracture segment. JOINTS: Mild acromioclavicular and glenohumeral joint degenerative changes. SOFT TISSUES: Left axillary surgical clips. OTHER FINDINGS: None. IMPRESSION: Comminuted fracture of the distal clavicle with mild depression of the distal fracture segment.
--- NOTE | 2018-01-28 15:15 | RAD ---
Date of service: 01/28/2018 PROCEDURE: Radiographs of the left clavicle. HISTORY: TRAUMA COMPARISON: None. FINDINGS: LEFT CLAVICLE: Comminuted fracture of the distal left clavicle with mild depression of the distal fracture segment. JOINTS: Mild acromioclavicular and glenohumeral joint degenerative changes. SOFT TISSUES: Grossly unremarkable. OTHER FINDINGS: None. IMPRESSION: Comminuted fracture of the distal left clavicle small depression of the distal fracture segment.
[2018-01-28 15:30] VITALS: BP 154/85; PULSE 70
[2018-01-29 13:02] VITALS: O2SAT 95
== END 2018-01-28 15:29 | disposition home or self-care (01) ==
LOC: C.ER 13:52
DX: S42.032A Displaced fracture of lateral end of left clavicle, initial encounter for closed fracture (principal); W01.0XXA Fall on same level from slipping, tripping and stumbling without subsequent striking against object, initial encounter; Y92.89 Other specified places as the place of occurrence of the external cause

== ENCOUNTER 2018-03-10 12:17 | Emergency (ER) | payer MEDICARE, MEDICAID ==
[2018-03-10 12:17] VITALS: BMI 38.7
--- NOTE | 2018-03-10 13:15 | C.PDOC ---
History Of Present Illness <Ember Perez - Last Filed: 03/10/18 14:17> <Kely Mcneil - Last Filed: 03/10/18 22:35> 67 year old male presents to the ED c/o intermittent bleeding from a varicose vein in his left ankle. Patient states he was seen in the ED in the past for similar symptoms in the past. Patient reports last time he had his wound stitched which only helped with the bleeding for a little bit. Patient states he was in the shower when he started bleeding. Patient denies injury, fall, trauma, weakness, numbness, fever, chills. (Kely Mcneil) <Ember Perez - Last Filed: 03/10/18 14:17> History Per: Patient History/Exam Limitations: no limitations Onset/Duration Of Symptoms: Hrs Current Symptoms Are (Timing): Still Present Location Of Injury: Left: Leg Quality Of Symptoms: Draining Recent travel outside of the [place]: No Additional History Per: Patient <Kely Mcneil - Last Filed: 03/10/18 22:35> Time Seen by Provider: 03/10/18 12:32 Chief Complaint (Nursing): Abnormal Skin Integrity Past Medical History Reviewed: Historical Data, Nursing Documentation, Vital Signs - Medical History PMH: Diabetes, Hepatitis, HTN, Hypercholesterolemia Denies: HIV, Chronic Kidney Disease, Seizures, Sexually Transmitted Disease Surgical History: No Surg Hx Family History: States: Unknown Family Hx - Social History Hx Tobacco Use: No Hx Alcohol Use: Yes (socially) Hx Substance Use: Yes (Heroin 9-12 Bag a day.) - Immunization History Hx Tetanus Toxoid Vaccination: No (7-8 yrs ago) Hx Influenza Vaccination: Yes Hx Pneumococcal Vaccination: Yes <Kely Mcneil - Last Filed: 03/10/18 22:35> Vital Signs: Last Vital Signs Temp 98.1 F 03/10/18 14:32 Pulse 81 03/10/18 14:32 Resp 18 03/10/18 14:32 BP 98/56 L 03/10/18 14:32 Pulse Ox 95 03/10/18 19:03 - [facility] Procedures DETOXIFICATION SERVICES FOR SUBSTANCE ABUSE TREATMENT (06/04/17) DRUG DETOXIFICATION (03/15/15) INDIV PSYCHOTHERAPY FOR SUBSTANCE ABUSE TREATMENT, SUPPORT (06/04/17) INDIV PSYCHOTHERAPY FOR SUBSTANCE ABUSE, COGNITIV BEHAVIORAL (06/04/17) MEDS MGMT FOR SUBSTANCE ABUSE TREATMENT, METHADONE MAINT (06/04/17) TETANUS TOXOID ADMINIST (04/19/15) Review Of Systems Constitutional: Negative for: Fever, Chills Respiratory: Negative for: Cough, Shortness of Breath Gastrointestinal: Negative for: Nausea, Vomiting, Abdominal Pain Musculoskeletal: Positive for: Leg Pain Skin: Positive for: Other (active bleeding) Neurological: Negative for: Weakness, Numbness <Kely Mcneil - Last Filed: 03/10/18 22:35> Physical Exam - Physical Exam Appears: Non-toxic, No Acute Distress Skin: Normal Color, Warm, Dry Head: Atraumatic, Normacephalic Eye(s): bilateral: Normal Inspection Neck: Normal ROM, Supple Chest: Symmetrical Cardiovascular: Rhythm Regular Respiratory: Normal Breath Sounds, No Rales, No Rhonchi Extremity: Normal ROM, No Tenderness, Capillary Refill (< 2 seconds), No Swelling, Other (pin point active bleeding left medial ankle) Pulses: Left Dorsalis Pedis: Normal, Right Dorsalis Pedis: Normal Neurological/Psych: Oriented x3, Normal Speech, Normal Motor, Normal Sensation Gait: Steady <Kely Mcneil - Last Filed: 03/10/18 22:35> ED Course And Treatment O2 Sat by Pulse Oximetry: 95 (ON RA) Pulse Ox Interpretation: Normal <Kely Mcneil - Last Filed: 03/10/18 22:35> Supervising Attending Note - Supervising Attending Note The Documented history was done by the: Physician Gauger Chief The documented physical exam was done by the: Physician Gauger Chief The documented procedures were done by the: Physician Gauger Chief - Attestation: I have personally seen and examined this patient.: Yes I have fully participated in the care of the patient.: Yes I have reviewed all pertinent clinical information, including history, physical exam and plan: Yes <Ember Perez - Last Filed: 03/10/18 14:17> <Kely Mcneil - Last Filed: 03/10/18 22:35> - Notes: Notes:: RECUR BLEEDING L VARICOSE VEIN THIS MORNING. NO TRAUMA. MULT PRIOR SUTURE FOR BLEEDING CONTROL SEV WEEKS AGO FOR SAME SX. EXAM ABOVE. (Ember Perez) Medical Decision Making <Ember Perez - Last Filed: 03/10/18 14:17> <Kely Mcneil - Last Filed: 03/10/18 22:35> Medical Decision Making: Dr. Summers was paged, came down and saw the patient at bedside. Patient was placed on pressure dressing, bleeding was controlled, patient is stable enough to be D/C at home. (Kely Mcneil) Disposition <Ember Perez - Last Filed: 03/10/18 14:17> - Disposition Disposition Time: 13:19 <Kely Mcneil - Last Filed: 03/10/18 22:35> - Disposition Referrals: Rob Summers Jr., MD [Staff Provider] - Ree Gomez MD [Staff Provider] - Disposition: HOME/ ROUTINE Condition: STABLE Additional Instructions: Follow up with the Surgeon about the varicose veins. Return if worsened. Instructions: Varicose Veins (DC) Forms: [facility] [employer] (Togolese) - Clinical Impression Clinical Impression: Bleeding from varicose vein <Ember Perez - Last Filed: 03/10/18 14:17> - PA / BLOCK CAPTAIN / Resident Statement MD/DO has reviewed & agrees with the documentation as recorded. - Scribe Statement The provider has reviewed the documentation as recorded by the Scribe <Kely Mcneil - Last Filed: 03/10/18 22:35> - Scribe Statement Arian Harden All medical record entries made by the Scribe were at my direction and personally dictated by me. I have reviewed the chart and agree that the record accurately reflects my personal performance of the history, physical exam, medical decision making, and the department course for this patient. I have also personally directed, reviewed, and agree with the discharge instructions and disposition. (Kely Mcneil)
[2018-03-10] MEDS ORDERED: Epinephrine /Lidocaine HCL 1:100,000/2% 30 ml INJ ONE (13:24)
[2018-03-10] MEDS ORDERED: Silver Nitrate Topical - Stick ONE (13:42)
[2018-03-10] MEDS ORDERED: Lidocaine/Epi 1% 1:100000 20 ML IJ ONE (13:45)
[2018-03-10 14:37] VITALS: BP 98/56; PULSE 81; RESP 18; TEMP 98.1; O2SAT 95
--- NOTE | 2018-03-11 00:57 | CON ---
Copied To: Rob Summers Jr., MD Attending MD: Rob Summers Jr., MD DATE: 03/10/2018 CONSULTATION TO: Dr. Perez in the Emergency Room at [facility]. HISTORY OF PRESENT ILLNESS: The patient is a 67-year-old man, seen today for evaluation of a bleeding spot on his left ankle. The patient has a past history that he has a history of atrial fibrillation for which he is on Xarelto. He had had a similar episode a few weeks ago, which was stitched; however now, he was standing today, bumped it on some wooden object and bleeding began. He says, he is not sure if he had varicose veins on the leg or not. His family history is noncontributory for any similar problems. His history includes ablation for atrial fibrillation, which he says it is "partially successful." PHYSICAL EXAMINATION: GENERAL: Man is overweight. EXTREMITIES: He has palpable pedal pulses. ASSESSMENT AND PLAN: His right leg is okay without any signs of spider or large varices on the leg. The left leg is elevated. We took off the existing bandage. I did not see any bleeding varix. I saw a pinpoint hole where blood had come from. At this point, we simply redressed it. I went over routine prophylactic measures, the importance of wearing support stockings, and what to do should he bleed again. At this point, there is no surgery I would recommend or there is any other intervention that should be carried out. This was reviewed with Dr. Perez. Rob Summers Jr., MD
== END 2018-03-10 14:37 | disposition home or self-care (01) ==
LOC: C.ER 12:17
DX: I83.892 Varicose veins of left lower extremity with other complications (principal)

== ENCOUNTER 2018-07-06 21:11 | Inpatient (IN) | payer MEDICARE, MEDICAID ==
[2018-07-06 21:11] VITALS: BMI 38.7
[2018-07-06] MEDS ORDERED: Sodium Chloride 0.9% 1,000 ML IV ONE (21:26)
--- NOTE | 2018-07-06 21:35 | C.PDOC ---
History Of Present Illness 67 year old male with history of IV heroin abuse presents to the ED BIBA for evaluation of feeling unhappy and depressed about his life. As per EMS, patient was sitting outside neighbor's outside and seemed confused and was shaking. Reports doing IV heroin today. Also states he fell yesterday and hit his head. Refuses to answer any questions about fall. He is intermittently confused and unclear when answering questions. HPI limited. Patient is a poor historian. Time Seen by Provider: 07/06/18 21:15 Chief Complaint (Nursing): Altered Mental Status History Per: Patient, EMS History/Exam Limitations: Other (poor historian ) Onset/Duration Of Symptoms: Hrs Onset Of Symptoms: Cannot Confirm Onset Current Symptoms Are (Timing): Still Present Usual Baseline: Unknown Additional History Per: EMS Associated Symptoms: denies: Fever, Chills, Chest Pain, Vomiting, Diarrhea, Cough Past Medical History Reviewed: Historical Data, Nursing Documentation, Vital Signs Vital Signs: Last Vital Signs Temp 98.9 F 07/06/18 21:15 Pulse 70 07/06/18 21:15 Resp 20 07/06/18 21:15 BP 91/35 L 07/06/18 21:15 Pulse Ox 83 L 07/06/18 21:15 - Medical History PMH: Atrial Fibrillation, Diabetes, Hepatitis, HTN, Hypercholesterolemia Denies: HIV, Chronic Kidney Disease, Seizures, Sexually Transmitted Disease Other Surgeries: Hx of surgeries - [facility] Procedures DETOXIFICATION SERVICES FOR SUBSTANCE ABUSE TREATMENT (06/04/17) DRUG DETOXIFICATION (03/15/15) INDIV PSYCHOTHERAPY FOR SUBSTANCE ABUSE TREATMENT, SUPPORT (06/04/17) INDIV PSYCHOTHERAPY FOR SUBSTANCE ABUSE, [facility]IOR[facility] (06/04/17) MEDS MGMT FOR SUBSTANCE ABUSE TREATMENT, METHADONE MAINT (06/04/17) TETANUS TOXOID ADMINIST (04/19/15) Family History: States: No Known Family Hx - Social History Hx Tobacco Use: No Hx Alcohol Use: Yes (socially) Hx Substance Use: Yes (Heroin 9-12 Bag a day.) - Immunization History Hx Tetanus Toxoid Vaccination: No (7-8 yrs ago) Hx Influenza Vaccination: Yes Hx Pneumococcal Vaccination: Yes Review Of Systems Constitutional: Negative for: Fever, Chills Cardiovascular: Negative for: Chest Pain Respiratory: Negative for: Shortness of Breath Gastrointestinal: Negative for: Nausea, Vomiting, Abdominal Pain, Diarrhea Neurological: Positive for: Altered Mental Status Psych: Positive for: Depression. Negative for: Suicidal ideation Physical Exam - Physical Exam Appears: Non-toxic, Other (unkempt, dirty ) Skin: Dry, Pale, Other (multiple skin sores and track mckinney ) Head: Normacephalic, Abrasion (abrasion with scab in forehead ) Eye(s): bilateral: Normal Inspection, PERRL, EOMI Ear(s): Bilateral: Normal Nose: Normal Oral Mucosa: Moist Neck: Normal, Normal ROM, Supple Cardiovascular: Rhythm Irregular Respiratory: Normal Breath Sounds, No Rales, No Rhonchi, No Wheezing Gastrointestinal/Abdominal: Soft, No Tenderness Rectal: Normal Exam (no stool in vault) Extremity: Bilateral: Atraumatic, Normal Color And Temperature, Normal ROM Neurological/Psych: Other (alert, responsive, answering questions, intermittently talking gibberish ) Gait: Steady ED Course And Treatment - Laboratory Results Result Diagrams: 07/06/18 21:36 07/06/18 21:36 Lab Interpretation: Abnormal (WBC 12.6, Hgb 5.2, Hct 16.9, BUN 55, Cr 4.1, Glucose 236, Na 127, HCO3 16, Ca 7.2, ETOH <10) ECG: Interpreted By [facility] ECG Rhythm: Atrial Fibrillation (with diffuse ST ischemic changes) O2 Sat by Pulse Oximetry: 100 (2L) Pulse Ox Interpretation: Normal - Radiology CXR: Interpreted by [facility] CXR Interpretation: Yes: Cardiomegaly - Physician Consult Information Time Consulting Physician Contacted: 22:41 Physician Contacted: Kayley Forrest Outcome Of Conversation: Patient to be admitted for severe anemia. ICU consult requested. Dr Coppola will see patient in ED. Medical Decision Making Medical Decision Making: Plan - CT head - EKG - CXR - Bloodwork - IV fluids - UA Disposition - Disposition Disposition: HOSPITALIZED Disposition Time: 22:42 Condition: FAIR - POA Present On Arrival: Falls Or Trauma - Clinical Impression Clinical Impression: Opiate addiction, Atrial fibrillation, Renal insufficiency, Anemia
[2018-07-06 21:41] LABS: BASO # 0.1 K/uL (0.0-0.2); BASO % 0.9 % (0.0-2.0); LYMPH # 0.5 K/uL (1.0-4.3); LYMPH % 4.3 % (20.0-40.0); MEAN CORPUSCULAR HGB CONC 30.6 g/dL (33.0-37.0); MEAN PLATELET VOLUME 7.6 fL (7.2-11.7); MONO # 1.1 K/uL (0.0-0.8); MONO % 8.7 % (0.0-10.0); NEUT # 10.9 K/uL (1.8-7.0); NEUT % 86.1 % (50.0-75.0); NRBC % 0.3 % (0.0-2.0); PLATELET COUNT 347 K/uL (130-400); RBC 2.25 Mil/uL (4.40-5.90); RED CELL DISTRIBUTION WIDTH 20.8 % (11.5-14.5); WHITE BLOOD COUNT 12.6 K/uL (4.8-10.8)
[2018-07-06 21:55] LABS: ALBUMIN 3.2 g/dL (3.5-5.0); BLOOD UREA NITROGEN 55 mg/dL (9-20); CALCIUM 7.2 mg/dl (8.6-10.4); GFR NON-AFRICAN AMERICAN 15
[2018-07-06 22:00] LABS: INR 1.4; PROTHROMBIN TIME 15.5 SECONDS (9.7-12.2)
[2018-07-06 22:01] LABS: ALT/SGPT 51 U/L (21-72); AST/SGOT 34 U/L (17-59)
[2018-07-06 22:11] LABS: HEMOGLOBIN 5.2 g/dL (12.0-18.0)
[2018-07-06 22:27] LABS: SQUAMOUS EPITHIAL < 1 /hpf (0-5); URINE BILIRUBIN NEGATIVE (NEGATIVE); URINE BLOOD 1+ (NEGATIVE); URINE CLARITY Clear (Clear); URINE COLOR Yellow (YELLOW); URINE GLUCOSE (UA) 3+ mg/dL (Normal); URINE LEUKOCYTE ESTERASE NEG Leu/uL (Negative); URINE PROTEIN NEGATIVE (NEGATIVE); URINE UROBILINOGEN NORMAL mg/dL (0.2-1.0)
[2018-07-06 22:38] LABS: BARBITURATES, UR NEGATIVE (NEGATIVE); BENZODIAZEPINES, UR NEGATIVE (NEGATIVE); PHENCYCLIDINE, UR NEGATIVE (NEGATIVE)
[2018-07-06 22:39] LABS: OPIATES, UR POSITIVE (NEGATIVE)
[2018-07-06 22:49] LABS: PLATELET ESTIMATE NORMAL (NORMAL)
[2018-07-06 22:53] LABS: BANDS 1 % (0-2); LYMPHOCYTE 5 % (20-40); MONOCYTE 5 % (0-10); NEUTROPHIL 89 % (50-75); TOTAL CELLS COUNTED 100
[2018-07-06 22:54] LABS: ANISOCYTOSIS SLIGHT; HYPOCHROMIC SLIGHT; MICROCYTOSIS SLIGHT; POIKILOCYTOSIS SLIGHT
[2018-07-06 22:55] LABS: LARGE PLATELETS PRESENT; SCHISTOCYTES SLIGHT; TEARDROP CELLS MODERATE
--- NOTE | 2018-07-06 23:23 | CP.PCM.CON ---
History of Present Illness - History of Present Illness History of Present Illness: 67 year old male with history of Atrial Fibrillation, Diabetes, Hepatitis, HTN, Hypercholesterolemia,anemia,melanoma,IV heroin abuse presents to the ED BIBA for evaluation of feeling unhappy and depressed about his life. As per EMS, patient was sitting outside neighbor's outside and seemed confused and was shaking. Reports doing IV heroin today. Also states he fell yesterday and hit his head. He is intermittently confused and unclear when answering questions. HPI limited. Patient is a poor historian. Review of Systems - Review of Systems Review of Systems: HPI limited. Patient is a poor historian. confused Past Patient History - Infectious Disease Hx of Infectious Diseases: None - Past Medical History & Family History Past Medical History?: Yes - Past Social History Smoking Status: Never Smoked Drugs: Opiates - CARDIAC Hx Atrial Fibrillation: Yes Hx Hypercholesterolemia: Yes Hx Hypertension: Yes - PULMONARY Hx Tuberculosis: No - NEUROLOGICAL Hx Seizures: No - HEENT Hx HEENT Problems: No - RENAL Hx Chronic Kidney Disease: No - ENDOCRINE/METABOLIC Hx Endocrine Disorders: Yes Hx Diabetes Mellitus Type 2: Yes Other/Comment: neuropathy - HEMATOLOGICAL/ONCOLOGICAL Hx Human Immunodeficiency Virus (HIV): No - INTEGUMENTARY Hx Dermatological Problems: Yes Hx Melanoma: Yes (Malignant Melonoma removed 1996) - MUSCULOSKELETAL/RHEUMATOLOGICAL Hx Falls: Yes - GASTROINTESTINAL Hx Gastrointestinal Disorders: No - GENITOURINARY/GYNECOLOGICAL Hx Sexually Transmitted Disorders: No - PSYCHIATRIC Hx Substance Use: Yes (Heroin 9-12 Bag a day.) - SURGICAL HISTORY Hx Surgeries: Yes Hx Musculoskeletal Surgery: Yes (BILATERAL KNEE, CARPAL TUNNEL) Other/Comment: Umbilical Hernia Repair. B/L Knee Artho,. lymph nodes removeded from jamal axilla - ANESTHESIA Hx Anesthesia: Yes Hx Anesthesia Reactions: No Hx Malignant Hyperthermia: No Meds Allergies/Adverse Reactions: Allergies Allergy/AdvReac Type Severity Reaction Status Date / Time No Known Allergies Allergy Verified 07/06/18 21:19 Physical Exam - Constitutional Appears: No Acute Distress, Older Than Stated Age - Head Exam Head Exam: ATRAUMATIC, NORMAL INSPECTION, NORMOCEPHALIC - Eye Exam Eye Exam: EOMI, Normal appearance, PERRL. absent: Conjunctival injection, Scleral icterus Pupil Exam: NORMAL ACCOMODATION - ENT Exam ENT Exam: Mucous Membranes Dry - Neck Exam Neck exam: Positive for: Full Rom, Normal Inspection - Respiratory Exam Respiratory Exam: Clear to Auscultation Bilateral, NORMAL BREATHING PATTERN - Cardiovascular Exam Cardiovascular Exam: Irregular Rhythm - GI/Abdominal Exam GI & Abdominal Exam: Normal Bowel Sounds, Soft. absent: Tenderness - Back Exam Back exam: NORMAL INSPECTION - Neurological Exam Neurological exam: Alert, CN II-XII Intact Additional comments: confused,answers some questions appropriately - Skin Skin Exam: Dry, Pallor, Warm Results - Vital Signs Recent Vital Signs: Last Vital Signs Temp 98.9 F 07/06/18 21:15 Pulse 69 07/06/18 22:36 Resp 20 07/06/18 22:36 BP 125/49 L 07/06/18 22:36 Pulse Ox 100 07/06/18 22:44 - Labs Result Diagrams: 07/06/18 21:36 07/06/18 21:36 Labs: Laboratory Results - last 24 hr 07/06/18 07/06/18 07/06/18 21:13 21:36 21:36 WBC 12.6 H RBC 2.25 L Hgb 5.2 L* D Hct 16.9 L MCV 75.0 L D MCH 23.0 L MCHC 30.6 L RDW 20.8 H Plt Count 347 MPV 7.6 Neut % (Auto) 86.1 H Lymph % (Auto) 4.3 L [place] % (Auto) 8.7 Eos % (Auto) 0.0 Baso % (Auto) 0.9 Neut # (Auto) 10.9 H Lymph # (Auto) 0.5 L [place] # (Auto) 1.1 H Eos # (Auto) 0.0 Baso # (Auto) 0.1 Neutrophils % (Manual) 89 H Band Neutrophils % 1 Lymphocytes % (Manual) 5 L Monocytes % (Manual) 5 Platelet Estimate Normal Large Platelets Present Hypochromasia (manual) Slight Poikilocytosis (manual Slight Anisocytosis (manual) Slight Microcytosis (manual) Slight Tear Drop Cells Moderate Schistocytes Slight PT INR APTT Sodium 127 L Potassium 4.4 Chloride 96 L Carbon Dioxide 16 L Anion Gap 20 BUN 55 H Creatinine 4.1 H Est GFR ( Amer) 18 Est GFR (Non-Af Amer) 15 POC Glucose (mg/dL) 307 H Random Glucose 236 H Calcium 7.2 L Total Bilirubin 1.3 AST 34 ALT 51 Alkaline Phosphatase 85 Troponin I < 0.0120 Total Protein 6.4 Albumin 3.2 L Globulin 3.1 Albumin/Globulin Ratio 1.0 Urine Color Urine Clarity Urine pH Ur Specific [place] Urine Protein Urine Glucose (UA) Urine Ketones Urine Blood Urine Nitrate Urine Bilirubin Urine Urobilinogen Ur Leukocyte Esterase Urine WBC (Auto) Urine RBC (Auto) Ur Squamous Epith Cells Hyaline Casts Urine Opiates Screen Urine Methadone Screen Ur Barbiturates Screen Ur Phencyclidine Scrn Ur Amphetamines Screen U Benzodiazepines Scrn U Oth Cocaine Metabols U Cannabinoids Screen Alcohol, Quantitative < 10 07/06/18 07/06/18 07/06/18 21:36 22:18 22:18 WBC RBC Hgb Hct MCV MCH MCHC RDW Plt Count MPV Neut % (Auto) Lymph % (Auto) [place] % (Auto) Eos % (Auto) Baso % (Auto) Neut # (Auto) Lymph # (Auto) [place] # (Auto) Eos # (Auto) Baso # (Auto) Neutrophils % (Manual) Band Neutrophils % Lymphocytes % (Manual) Monocytes % (Manual) Platelet Estimate Large Platelets Hypochromasia (manual) Poikilocytosis (manual Anisocytosis (manual) Microcytosis (manual) Tear Drop Cells Schistocytes PT 15.5 H INR 1.4 APTT 29 Sodium Potassium Chloride Carbon Dioxide Anion Gap BUN Creatinine Est GFR ( Amer) Est GFR (Non-Af Amer) POC Glucose (mg/dL) Random Glucose Calcium Total Bilirubin AST ALT Alkaline Phosphatase Troponin I Total Protein Albumin Globulin Albumin/Globulin Ratio Urine Color Yellow Urine Clarity Clear Urine pH 5.0 Ur Specific [place] 1.012 Urine Protein Negative Urine Glucose (UA) 3+ H Urine Ketones Negative Urine Blood 1+ H Urine Nitrate Negative Urine Bilirubin Negative Urine Urobilinogen Normal Ur Leukocyte Esterase Neg Urine WBC (Auto) 1 Urine RBC (Auto) < 1 Ur Squamous Epith Cells < 1 Hyaline Casts 3-5 H Urine Opiates Screen Positive H Urine Methadone Screen Negative Ur Barbiturates Screen Negative Ur Phencyclidine Scrn Negative Ur Amphetamines Screen Negative U Benzodiazepines Scrn Negative U Oth Cocaine Metabols Negative U Cannabinoids Screen Negative Alcohol, Quantitative - EKG Data EKG Interpreted by: Myself - Imaging and Cardiology Chest x-ray Status: Image reviewed by me Assessment & Plan - Assessment and Plan (Free Text) Assessment: 1.Anemia,microcytic- h/o anemia .BP normal.no tachycardia transfuse PRBC 2.Renal insufficiency.Cr normal 06/2017 IV hydration,f/u Cr 3.Electrolyte imbalance 4.DM on meds 5.HTN/Atrial fibrillation/Hyperlipidemia 6.Hematuria 7.H/o malignant melanoma 8.Confusion-baseline status unknown Ct head done patient hemodynamically stable.admit to telemetry
[2018-07-06 23:33] LABS: ABG ALLEN TEST POS; ARTERIAL BLOOD GAS HCO3 22.4 mmol/L (21-28); ARTERIAL BLOOD GAS HEMOGLOBIN 7.3 g/dL (11.7-17.4); ARTERIAL BLOOD GAS O2 SAT 99.2 % (95-98); ARTERIAL BLOOD GAS PCO2 30 mm/Hg (35-45); ARTERIAL BLOOD GAS PH 7.44 (7.35-7.45); ARTERIAL BLOOD GAS PO2 97 mm/Hg (80-100); ARTERIAL BLOOD GAS TCO2 21.3 mmol/L (22-28)
[2018-07-07] MEDS ORDERED: Dextrose 50% SYRINGE Inj (50 ml) IV PRN (01:24)
[2018-07-07] MEDS ORDERED: Glucagon Recombinant 1 mg Inj IM PRN (01:24)
--- NOTE | 2018-07-07 06:55 | CP.PCM.CON ---
History of Present Illness - History of Present Illness History of Present Illness: CONSULTATION DICTATED TOXIC Vs METABOLIC ENCEPHALOPATHY CORRECT ANEMIA AND ELECTROLYTES CHECK LIVER FUNCTION EEG PATIENT REFUSES MRI KEEP MAP AROUND 100 Past Patient History - Infectious Disease Hx of Infectious Diseases: None - Past Medical History & Family History Past Medical History?: Yes - Past Social History Smoking Status: Never Smoked Drugs: Opiates - CARDIAC Hx Atrial Fibrillation: Yes Hx Hypercholesterolemia: Yes Hx Hypertension: Yes - PULMONARY Hx Tuberculosis: No - NEUROLOGICAL Hx Seizures: No - HEENT Hx HEENT Problems: No - RENAL Hx Chronic Kidney Disease: No - ENDOCRINE/METABOLIC Hx Endocrine Disorders: Yes Hx Diabetes Mellitus Type 2: Yes Other/Comment: neuropathy - HEMATOLOGICAL/ONCOLOGICAL Hx Human Immunodeficiency Virus (HIV): No - INTEGUMENTARY Hx Dermatological Problems: Yes Hx Melanoma: Yes (Malignant Melonoma removed 1996) - MUSCULOSKELETAL/RHEUMATOLOGICAL Hx Falls: Yes - GASTROINTESTINAL Hx Gastrointestinal Disorders: No - GENITOURINARY/GYNECOLOGICAL Hx Sexually Transmitted Disorders: No - PSYCHIATRIC Hx Substance Use: Yes (Heroin 9-12 Bag a day.) - SURGICAL HISTORY Hx Surgeries: Yes Hx Musculoskeletal Surgery: Yes (BILATERAL KNEE, CARPAL TUNNEL) Other/Comment: Umbilical Hernia Repair. B/L Knee Artho,. lymph nodes removeded from jamal axilla - ANESTHESIA Hx Anesthesia: Yes Hx Anesthesia Reactions: No Hx Malignant Hyperthermia: No Meds Allergies/Adverse Reactions: Allergies Allergy/AdvReac Type Severity Reaction Status Date / Time No Known Allergies Allergy Verified 07/06/18 21:19 - Medications Medications: Current Medications Dextrose (Dextrose 50% Inj) 0 ml IV STAT PRN; Protocol PRN Reason: Hypoglycemia Protocol Dextrose (Glutose 15) 0 gm PO ONCE PRN; Protocol PRN Reason: Hypoglycemia Protocol Enoxaparin Sodium (Lovenox) 40 mg SC DAILY SHARIF Glucagon (Glucagen Diagnostic Kit) 0 mg IM STAT PRN; Protocol PRN Reason: Hypoglycemia Protocol Ceftriaxone Sodium 1 gm/ (Sodium Chloride) 100 mls @ 100 mls/hr IVPB DAILY SHARIF; Protocol Dextrose (Dextrose 5% In Water 1000 Ml) 1,000 mls @ 0 mls/hr IV .Q0M PRN; Protocol PRN Reason: Hypoglycemia Protocol Vancomycin HCl 1 gm/ Sodium (Chloride) 250 mls @ 166.7 mls/hr IVPB Q24H SHARIF; Protocol Multivitamins/Vitamin C 10 ml/Thiamine HCl 100 mg/ Folic Acid 1 mg/ Sodium Chloride 1,011.2 mls @ 75 mls/hr IV .[id number] ONE Stop: 07/07/18 21:28 Insulin Aspart (Novolog) 0 unit SC ACHS SHARIF; Protocol Pantoprazole Sodium (Protonix Inj) 40 mg IVP DAILY SHARIF Results - Vital Signs Recent Vital Signs: Last Vital Signs Temp 99.0 F 07/07/18 06:15 Pulse 78 07/07/18 06:15 Resp 16 07/07/18 06:15 BP 137/64 07/07/18 06:15 Pulse Ox 99 07/07/18 06:15 - Labs Result Diagrams: 07/06/18 21:36 07/06/18 21:36 Labs: Laboratory Results - last 24 hr 07/06/18 07/06/18 07/06/18 21:13 21:36 21:36 WBC 12.6 H RBC 2.25 L Hgb 5.2 L* D Hct 16.9 L MCV 75.0 L D MCH 23.0 L MCHC 30.6 L RDW 20.8 H Plt Count 347 MPV 7.6 Neut % (Auto) 86.1 H Lymph % (Auto) 4.3 L [place] % (Auto) 8.7 Eos % (Auto) 0.0 Baso % (Auto) 0.9 Neut # (Auto) 10.9 H Lymph # (Auto) 0.5 L [place] # (Auto) 1.1 H Eos # (Auto) 0.0 Baso # (Auto) 0.1 Neutrophils % (Manual) 89 H Band Neutrophils % 1 Lymphocytes % (Manual) 5 L Monocytes % (Manual) 5 Platelet Estimate Normal Large Platelets Present Hypochromasia (manual) Slight Poikilocytosis (manual Slight Anisocytosis (manual) Slight Microcytosis (manual) Slight Tear Drop Cells Moderate Schistocytes Slight PT INR APTT Puncture Site pCO2 pO2 HCO3 ABG pH ABG Total CO2 ABG O2 Saturation ABG Base Excess ABG Hemoglobin ABG Carboxyhemoglobin POC ABG HHb (Measured) ABG Methemoglobin [place] Test A-a O2 Difference Respiratory Index Hgb O2 Saturation Vent Mode FiO2 Sodium 127 L Potassium 4.4 Chloride 96 L Carbon Dioxide 16 L Anion Gap 20 BUN 55 H Creatinine 4.1 H Est GFR ( Amer) 18 Est GFR (Non-Af Amer) 15 POC Glucose (mg/dL) 307 H Random Glucose 236 H Lactic Acid Calcium 7.2 L Total Bilirubin 1.3 AST 34 ALT 51 Alkaline Phosphatase 85 Troponin I < 0.0120 Total Protein 6.4 Albumin 3.2 L Globulin 3.1 Albumin/Globulin Ratio 1.0 Urine Color Urine Clarity Urine pH Ur Specific [place] Urine Protein Urine Glucose (UA) Urine Ketones Urine Blood Urine Nitrate Urine Bilirubin Urine Urobilinogen Ur Leukocyte Esterase Urine WBC (Auto) Urine RBC (Auto) Ur Squamous Epith Cells Hyaline Casts Urine Opiates Screen Urine Methadone Screen Ur Barbiturates Screen Ur Phencyclidine Scrn Ur Amphetamines Screen U Benzodiazepines Scrn U Oth Cocaine Metabols U Cannabinoids Screen Alcohol, Quantitative < 10 Blood Type Antibody Screen 07/06/18 07/06/18 07/06/18 21:36 22:18 22:18 WBC RBC Hgb Hct MCV MCH MCHC RDW Plt Count MPV Neut % (Auto) Lymph % (Auto) [place] % (Auto) Eos % (Auto) Baso % (Auto) Neut # (Auto) Lymph # (Auto) [place] # (Auto) Eos # (Auto) Baso # (Auto) Neutrophils % (Manual) Band Neutrophils % Lymphocytes % (Manual) Monocytes % (Manual) Platelet Estimate Large Platelets Hypochromasia (manual) Poikilocytosis (manual Anisocytosis (manual) Microcytosis (manual) Tear Drop Cells Schistocytes PT 15.5 H INR 1.4 APTT 29 Puncture Site pCO2 pO2 HCO3 ABG pH ABG Total CO2 ABG O2 Saturation ABG Base Excess ABG Hemoglobin ABG Carboxyhemoglobin POC ABG HHb (Measured) ABG Methemoglobin [place] Test A-a O2 Difference Respiratory Index Hgb O2 Saturation Vent Mode FiO2 Sodium Potassium Chloride Carbon Dioxide Anion Gap BUN Creatinine Est GFR ( Amer) Est GFR (Non-Af Amer) POC Glucose (mg/dL) Random Glucose Lactic Acid Calcium Total Bilirubin AST ALT Alkaline Phosphatase Troponin I Total Protein Albumin Globulin Albumin/Globulin Ratio Urine Color Yellow Urine Clarity Clear Urine pH 5.0 Ur Specific [place] 1.012 Urine Protein Negative Urine Glucose (UA) 3+ H Urine Ketones Negative Urine Blood 1+ H Urine Nitrate Negative Urine Bilirubin Negative Urine Urobilinogen Normal Ur Leukocyte Esterase Neg Urine WBC (Auto) 1 Urine RBC (Auto) < 1 Ur Squamous Epith Cells < 1 Hyaline Casts 3-5 H Urine Opiates Screen Positive H Urine Methadone Screen Negative Ur Barbiturates Screen Negative Ur Phencyclidine Scrn Negative Ur Amphetamines Screen Negative U Benzodiazepines Scrn Negative U Oth Cocaine Metabols Negative U Cannabinoids Screen Negative Alcohol, Quantitative Blood Type Antibody Screen 07/06/18 07/07/18 07/07/18 23:25 00:40 02:38 WBC RBC Hgb Hct MCV MCH MCHC RDW Plt Count MPV Neut % (Auto) Lymph % (Auto) [place] % (Auto) Eos % (Auto) Baso % (Auto) Neut # (Auto) Lymph # (Auto) [place] # (Auto) Eos # (Auto) Baso # (Auto) Neutrophils % (Manual) Band Neutrophils % Lymphocytes % (Manual) Monocytes % (Manual) Platelet Estimate Large Platelets Hypochromasia (manual) Poikilocytosis (manual Anisocytosis (manual) Microcytosis (manual) Tear Drop Cells Schistocytes PT INR APTT Puncture Site Rr pCO2 30 L pO2 97 HCO3 22.4 ABG pH 7.44 ABG Total CO2 21.3 L ABG O2 Saturation 99.2 H ABG Base Excess -3.3 L ABG Hemoglobin 7.3 L ABG Carboxyhemoglobin 2.7 H POC ABG HHb (Measured) 0.8 ABG Methemoglobin 1.0 [place] Test Pos A-a O2 Difference 15.0 Respiratory Index 0.2 Hgb O2 Saturation 95.5 Vent Mode Room air FiO2 21.0 Sodium Potassium Chloride Carbon Dioxide Anion Gap BUN Creatinine Est GFR ( Amer) Est GFR (Non-Af Amer) POC Glucose (mg/dL) Random Glucose Lactic Acid 1.0 Calcium Total Bilirubin AST ALT Alkaline Phosphatase Troponin I Total Protein Albumin Globulin Albumin/Globulin Ratio Urine Color Urine Clarity Urine pH Ur Specific [place] Urine Protein Urine Glucose (UA) Urine Ketones Urine Blood Urine Nitrate Urine Bilirubin Urine Urobilinogen Ur Leukocyte Esterase Urine WBC (Auto) Urine RBC (Auto) Ur Squamous Epith Cells Hyaline Casts Urine Opiates Screen Urine Methadone Screen Ur Barbiturates Screen Ur Phencyclidine Scrn Ur Amphetamines Screen U Benzodiazepines Scrn U Oth Cocaine Metabols U Cannabinoids Screen Alcohol, Quantitative Blood Type O POSITIVE Antibody Screen Negative
[2018-07-07] MEDS ORDERED: Multivitamin (MVI) 10 ML, Thiamine 100 MG, Folic Acid 1 MG in Sodium Chloride 0.9% 1,00... IV ONE (08:00)
[2018-07-07] MEDS ORDERED: Pneumococcal 23-Valent Vaccine IM ONE (08:11)
--- NOTE | 2018-07-07 08:32 | CT ---
Date of service: 07/06/2018 PROCEDURE: CT HEAD WITHOUT CONTRAST. HISTORY: Altered mental status COMPARISON: None available. TECHNIQUE: Axial computed tomography images were obtained through the head/brain without intravenous contrast. Radiation dose: Total exam DLP = 1012.36 mGy-cm. This CT exam was performed using one or more of the following dose reduction techniques: Automated exposure control, adjustment of the mA and/or kV according to patient size, and/or use of iterative reconstruction technique. FINDINGS: HEMORRHAGE: No intracranial hemorrhage. BRAIN: No mass effect or edema. Scattered focal lucencies in the subcortical and periventricular white matter suggestive for chronic microvascular ischemic change. Area of low attenuation in the right posterior fonseca radiata/posterior frontoparietal region consistent with old infarct. Left basal ganglia calcification. VENTRICLES: Unremarkable. No hydrocephalus. CALVARIUM: Unremarkable. PARANASAL SINUSES: Mild mucosal thickening of the ethmoid and sphenoid sinuses with mucosal retention cyst in the left sphenoid sinus. MASTOID AIR CELLS: Unremarkable as visualized. No inflammatory changes. OTHER FINDINGS: Intracranial arterial calcifications. IMPRESSION: 1. Scattered focal lucencies in the subcortical and periventricular white matter suggestive for chronic microvascular ischemic change. 2. Area of low attenuation in the right posterior fonseca radiata/posterior frontoparietal region consistent with old infarct. 3. Left basal ganglia calcification. 4. Mild mucosal thickening of the ethmoid and sphenoid sinuses with mucosal retention cyst in the left sphenoid sinus. If symptoms persist, consider correlation with MRI. A preliminary report was generated at 10:56 p.m. on 07/06/[address] Broderick Nava from [facility].
[2018-07-07] MEDS: (Novolog) Insulin Aspart, Recombinant 100 u/ml 10 ml vial SC SCH ×4 (09:38→22:31)
--- NOTE | 2018-07-07 09:46 | RAD ---
Chest x-ray single frontal view HISTORY: Altered mental status. COMPARISON: 07/04/2017 Findings: Mild venous congestion. Patchy increased markings at the left lung base. Biapical pleural thickening. Bilateral hilar prominence. Enlarged ectatic aorta. Cardiomegaly. Degenerative changes in the spine and shoulders. Surgical clips in the left axilla. Impression: Mild venous congestion. Patchy increased markings at the left lung base. Biapical pleural thickening. Bilateral hilar prominence. Enlarged ectatic aorta. Cardiomegaly.
[2018-07-07] MEDS ORDERED: Enoxaparin 40 mg Syringe SC SCH (10:00)
--- NOTE | 2018-07-07 17:04 | CARD ---
APPROVED REPORT Date of service: 07/06/2018 EKG Measurement Heart [id number] <Conclusion> Atrial fibrillation ST & T wave abnormality, consider inferior ischemia ST & T wave abnormality, consider anterolateral ischemia Abnormal ECG
--- NOTE | 2018-07-07 19:05 | CP.PCM.HP ---
Past Patient History - Infectious Disease Hx of Infectious Diseases: None - Past Medical History & Family History Past Medical History?: Yes - Past Social History Smoking Status: Never Smoked - CARDIAC Hx Cardiac Disorders: Yes Hx Atrial Fibrillation: Yes Hx Hypercholesterolemia: Yes Hx Hypertension: Yes - PULMONARY Hx Respiratory Disorders: No Hx Tuberculosis: No - NEUROLOGICAL Hx Neurological Disorder: No Hx Seizures: No - HEENT Hx HEENT Problems: No - RENAL Hx Chronic Kidney Disease: No - ENDOCRINE/METABOLIC Hx Endocrine Disorders: Yes Hx Diabetes Mellitus Type 2: Yes Other/Comment: neuropathy - HEMATOLOGICAL/ONCOLOGICAL Hx Blood Disorders: No Hx Human Immunodeficiency Virus (HIV): No - INTEGUMENTARY Hx Dermatological Problems: Yes Hx Melanoma: Yes (Malignant Melonoma removed 1996) - MUSCULOSKELETAL/RHEUMATOLOGICAL Hx Musculoskeletal Disorders: Yes Hx Falls: Yes - GASTROINTESTINAL Hx Gastrointestinal Disorders: No - GENITOURINARY/GYNECOLOGICAL Hx Genitourinary Disorders: No Hx Sexually Transmitted Disorders: No - PSYCHIATRIC Hx Psychophysiologic Disorder: Yes Hx Substance Use: Yes (Heroin 9-12 Bag a day.) - SURGICAL HISTORY Hx Surgeries: Yes Hx Musculoskeletal Surgery: Yes (BILATERAL KNEE, CARPAL TUNNEL) Other/Comment: Umbilical Hernia Repair. B/L Knee Artho,. lymph nodes removeded from jamal axilla - ANESTHESIA Hx Anesthesia: Yes Hx Anesthesia Reactions: No Hx Malignant Hyperthermia: No Meds Allergies/Adverse Reactions: Allergies Allergy/AdvReac Type Severity Reaction Status Date / Time No Known Allergies Allergy Verified 07/06/18 21:19 Physical Exam - Constitutional Appears: Well - Head Exam Head Exam: ATRAUMATIC, NORMAL INSPECTION, NORMOCEPHALIC - Eye Exam Eye Exam: EOMI, Normal appearance, PERRL Pupil Exam: NORMAL ACCOMODATION, PERRL - ENT Exam ENT Exam: Mucous Membranes Moist, Normal Exam - Neck Exam Neck exam: Positive for: Normal Inspection - Respiratory Exam Respiratory Exam: Decreased Breath Sounds - Cardiovascular Exam Cardiovascular Exam: REGULAR RHYTHM, +S1, +S2 - GI/Abdominal Exam GI & Abdominal Exam: Diminished Bowel Sounds, Soft - Rectal Exam Rectal Exam: Deferred Results - Vital Signs Recent Vital Signs: Last Vital Signs Temp 98.2 F 07/07/18 15:52 Pulse 87 07/07/18 15:52 Resp 20 07/07/18 15:52 BP 104/58 L 07/07/18 15:52 Pulse Ox 94 L 07/07/18 15:52 - Labs Result Diagrams: 07/06/18 21:36 07/06/18 21:36 Labs: Laboratory Results - last 24 hr 07/06/18 07/06/18 07/06/18 21:13 21:36 21:36 WBC 12.6 H RBC 2.25 L Hgb 5.2 L* D Hct 16.9 L MCV 75.0 L D MCH 23.0 L MCHC 30.6 L RDW 20.8 H Plt Count 347 MPV 7.6 Neut % (Auto) 86.1 H Lymph % (Auto) 4.3 L [place] % (Auto) 8.7 Eos % (Auto) 0.0 Baso % (Auto) 0.9 Neut # (Auto) 10.9 H Lymph # (Auto) 0.5 L [place] # (Auto) 1.1 H Eos # (Auto) 0.0 Baso # (Auto) 0.1 Neutrophils % (Manual) 89 H Band Neutrophils % 1 Lymphocytes % (Manual) 5 L Monocytes % (Manual) 5 Platelet Estimate Normal Large Platelets Present Hypochromasia (manual) Slight Poikilocytosis (manual Slight Anisocytosis (manual) Slight Microcytosis (manual) Slight Tear Drop Cells Moderate Schistocytes Slight PT INR APTT Puncture Site pCO2 pO2 HCO3 ABG pH ABG Total CO2 ABG O2 Saturation ABG Base Excess ABG Hemoglobin ABG Carboxyhemoglobin POC ABG HHb (Measured) ABG Methemoglobin Santos Test A-a O2 Difference Respiratory Index Hgb O2 Saturation Vent Mode FiO2 Sodium 127 L Potassium 4.4 Chloride 96 L Carbon Dioxide 16 L Anion Gap 20 BUN 55 H Creatinine 4.1 H Est GFR ( Amer) 18 Est GFR (Non-Af Amer) 15 POC Glucose (mg/dL) 307 H Random Glucose 236 H Lactic Acid Calcium 7.2 L Phosphorus 3.3 Magnesium 1.1 L Total Bilirubin 1.3 AST 34 ALT 51 Alkaline Phosphatase 85 Troponin I < 0.0120 Total Protein 6.4 Albumin 3.2 L Globulin 3.1 Albumin/Globulin Ratio 1.0 Vitamin B12 444 Procalcitonin Urine Color Urine Clarity Urine pH Ur Specific [place] Urine Protein Urine Glucose (UA) Urine Ketones Urine Blood Urine Nitrate Urine Bilirubin Urine Urobilinogen Ur Leukocyte Esterase Urine WBC (Auto) Urine RBC (Auto) Ur Squamous Epith Cells Hyaline Casts Urine Opiates Screen Urine Methadone Screen Ur Barbiturates Screen Ur Phencyclidine Scrn Ur Amphetamines Screen U Benzodiazepines Scrn U Oth Cocaine Metabols U Cannabinoids Screen Alcohol, Quantitative < 10 Blood Type Antibody Screen 07/06/18 07/06/18 07/06/18 21:36 22:18 22:18 WBC RBC Hgb Hct MCV MCH MCHC RDW Plt Count MPV Neut % (Auto) Lymph % (Auto) [place] % (Auto) Eos % (Auto) Baso % (Auto) Neut # (Auto) Lymph # (Auto) [place] # (Auto) Eos # (Auto) Baso # (Auto) Neutrophils % (Manual) Band Neutrophils % Lymphocytes % (Manual) Monocytes % (Manual) Platelet Estimate Large Platelets Hypochromasia (manual) Poikilocytosis (manual Anisocytosis (manual) Microcytosis (manual) Tear Drop Cells Schistocytes PT 15.5 H INR 1.4 APTT 29 Puncture Site pCO2 pO2 HCO3 ABG pH ABG Total CO2 ABG O2 Saturation ABG Base Excess ABG Hemoglobin ABG Carboxyhemoglobin POC ABG HHb (Measured) ABG Methemoglobin Santos Test A-a O2 Difference Respiratory Index Hgb O2 Saturation Vent Mode FiO2 Sodium Potassium Chloride Carbon Dioxide Anion Gap BUN Creatinine Est GFR ( Amer) Est GFR (Non-Af Amer) POC Glucose (mg/dL) Random Glucose Lactic Acid Calcium Phosphorus Magnesium Total Bilirubin AST ALT Alkaline Phosphatase Troponin I Total Protein Albumin Globulin Albumin/Globulin Ratio Vitamin B12 Procalcitonin Urine Color Yellow Urine Clarity Clear Urine pH 5.0 Ur Specific [place] 1.012 Urine Protein Negative Urine Glucose (UA) 3+ H Urine Ketones Negative Urine Blood 1+ H Urine Nitrate Negative Urine Bilirubin Negative Urine Urobilinogen Normal Ur Leukocyte Esterase Neg Urine WBC (Auto) 1 Urine RBC (Auto) < 1 Ur Squamous Epith Cells < 1 Hyaline Casts 3-5 H Urine Opiates Screen Positive H Urine Methadone Screen Negative Ur Barbiturates Screen Negative Ur Phencyclidine Scrn Negative Ur Amphetamines Screen Negative U Benzodiazepines Scrn Negative U Oth Cocaine Metabols Negative U Cannabinoids Screen Negative Alcohol, Quantitative Blood Type Antibody Screen 07/06/18 07/07/18 07/07/18 23:25 00:40 02:38 WBC RBC Hgb Hct MCV MCH MCHC RDW Plt Count MPV Neut % (Auto) Lymph % (Auto) [place] % (Auto) Eos % (Auto) Baso % (Auto) Neut # (Auto) Lymph # (Auto) [place] # (Auto) Eos # (Auto) Baso # (Auto) Neutrophils % (Manual) Band Neutrophils % Lymphocytes % (Manual) Monocytes % (Manual) Platelet Estimate Large Platelets Hypochromasia (manual) Poikilocytosis (manual Anisocytosis (manual) Microcytosis (manual) Tear Drop Cells Schistocytes PT INR APTT Puncture Site Rr pCO2 30 L pO2 97 HCO3 22.4 ABG pH 7.44 ABG Total CO2 21.3 L ABG O2 Saturation 99.2 H ABG Base Excess -3.3 L ABG Hemoglobin 7.3 L ABG Carboxyhemoglobin 2.7 H POC ABG HHb (Measured) 0.8 ABG Methemoglobin 1.0 Santos Test Pos A-a O2 Difference 15.0 Respiratory Index 0.2 Hgb O2 Saturation 95.5 Vent Mode Room air FiO2 21.0 Sodium Potassium Chloride Carbon Dioxide Anion Gap BUN Creatinine Est GFR ( Amer) Est GFR (Non-Af Amer) POC Glucose (mg/dL) Random Glucose Lactic Acid Calcium Phosphorus Magnesium Total Bilirubin AST ALT Alkaline Phosphatase Troponin I Total Protein Albumin Globulin Albumin/Globulin Ratio Vitamin B12 Procalcitonin 0.45 Urine Color Urine Clarity Urine pH Ur Specific [place] Urine Protein Urine Glucose (UA) Urine Ketones Urine Blood Urine Nitrate Urine Bilirubin Urine Urobilinogen Ur Leukocyte Esterase Urine WBC (Auto) Urine RBC (Auto) Ur Squamous Epith Cells Hyaline Casts Urine Opiates Screen Urine Methadone Screen Ur Barbiturates Screen Ur Phencyclidine Scrn Ur Amphetamines Screen U Benzodiazepines Scrn U Oth Cocaine Metabols U Cannabinoids Screen Alcohol, Quantitative Blood Type O POSITIVE Antibody Screen Negative 07/07/18 07/07/18 07/07/18 02:38 07:33 11:25 WBC RBC Hgb Hct MCV MCH MCHC RDW Plt Count MPV Neut % (Auto) Lymph % (Auto) [place] % (Auto) Eos % (Auto) Baso % (Auto) Neut # (Auto) Lymph # (Auto) [place] # (Auto) Eos # (Auto) Baso # (Auto) Neutrophils % (Manual) Band Neutrophils % Lymphocytes % (Manual) Monocytes % (Manual) Platelet Estimate Large Platelets Hypochromasia (manual) Poikilocytosis (manual Anisocytosis (manual) Microcytosis (manual) Tear Drop Cells Schistocytes PT INR APTT Puncture Site pCO2 pO2 HCO3 ABG pH ABG Total CO2 ABG O2 Saturation ABG Base Excess ABG Hemoglobin ABG Carboxyhemoglobin POC ABG HHb (Measured) ABG Methemoglobin [place] Test A-a O2 Difference Respiratory Index Hgb O2 Saturation Vent Mode FiO2 Sodium Potassium Chloride Carbon Dioxide Anion Gap BUN Creatinine Est GFR ( Amer) Est GFR (Non-Af Amer) POC Glucose (mg/dL) 178 H 227 H Random Glucose Lactic Acid 1.0 Calcium Phosphorus Magnesium Total Bilirubin AST ALT Alkaline Phosphatase Troponin I Total Protein Albumin Globulin Albumin/Globulin Ratio Vitamin B12 Procalcitonin Urine Color Urine Clarity Urine pH Ur Specific [place] Urine Protein Urine Glucose (UA) Urine Ketones Urine Blood Urine Nitrate Urine Bilirubin Urine Urobilinogen Ur Leukocyte Esterase Urine WBC (Auto) Urine RBC (Auto) Ur Squamous Epith Cells Hyaline Casts Urine Opiates Screen Urine Methadone Screen Ur Barbiturates Screen Ur Phencyclidine Scrn Ur Amphetamines Screen U Benzodiazepines Scrn U Oth Cocaine Metabols U Cannabinoids Screen Alcohol, Quantitative Blood Type Antibody Screen 07/07/18 16:15 WBC RBC Hgb Hct MCV MCH MCHC RDW Plt Count MPV Neut % (Auto) Lymph % (Auto) [place] % (Auto) Eos % (Auto) Baso % (Auto) Neut # (Auto) Lymph # (Auto) [place] # (Auto) Eos # (Auto) Baso # (Auto) Neutrophils % (Manual) Band Neutrophils % Lymphocytes % (Manual) Monocytes % (Manual) Platelet Estimate Large Platelets Hypochromasia (manual) Poikilocytosis (manual Anisocytosis (manual) Microcytosis (manual) Tear Drop Cells Schistocytes PT INR APTT Puncture Site pCO2 pO2 HCO3 ABG pH ABG Total CO2 ABG O2 Saturation ABG Base Excess ABG Hemoglobin ABG Carboxyhemoglobin POC ABG HHb (Measured) ABG Methemoglobin [place] Test A-a O2 Difference Respiratory Index Hgb O2 Saturation Vent Mode FiO2 Sodium Potassium Chloride Carbon Dioxide Anion Gap BUN Creatinine Est GFR ( Amer) Est GFR (Non-Af Amer) POC Glucose (mg/dL) 193 H Random Glucose Lactic Acid Calcium Phosphorus Magnesium Total Bilirubin AST ALT Alkaline Phosphatase Troponin I Total Protein Albumin Globulin Albumin/Globulin Ratio Vitamin B12 Procalcitonin Urine Color Urine Clarity Urine pH Ur Specific [place] Urine Protein Urine Glucose (UA) Urine Ketones Urine Blood Urine Nitrate Urine Bilirubin Urine Urobilinogen Ur Leukocyte Esterase Urine WBC (Auto) Urine RBC (Auto) Ur Squamous Epith Cells Hyaline Casts Urine Opiates Screen Urine Methadone Screen Ur Barbiturates Screen Ur Phencyclidine Scrn Ur Amphetamines Screen U Benzodiazepines Scrn U Oth Cocaine Metabols U Cannabinoids Screen Alcohol, Quantitative Blood Type Antibody Screen
[2018-07-07 20:44] LABS: BASO % 0.5 % (0.0-2.0); EOS % 0.3 % (0.0-4.0); LYMPH # 0.9 K/uL (1.0-4.3); LYMPH % 8.7 % (20.0-40.0); MEAN CORPUSCULAR HGB CONC 32.8 g/dL (33.0-37.0); MEAN PLATELET VOLUME 7.4 fL (7.2-11.7); MONO # 0.9 K/uL (0.0-0.8); MONO % 8.8 % (0.0-10.0); NEUT # 8.6 K/uL (1.8-7.0); NEUT % 81.7 % (50.0-75.0); NRBC % 0.1 % (0.0-2.0); PLATELET COUNT 278 K/uL (130-400); RBC 2.55 Mil/uL (4.40-5.90); RED CELL DISTRIBUTION WIDTH 20.7 % (11.5-14.5); WHITE BLOOD COUNT 10.5 K/uL (4.8-10.8)
[2018-07-07 21:06] LABS: HEMOGLOBIN 6.4 g/dL (12.0-18.0)
[2018-07-07 21:34] LABS: EOSINOPHIL 1 % (0-4); LYMPHOCYTE 8 % (20-40); MONOCYTE 7 % (0-10); NEUTROPHIL 84 % (50-75); TOTAL CELLS COUNTED 100
[2018-07-07 21:35] LABS: PLATELET ESTIMATE NORMAL (NORMAL)
[2018-07-07 21:36] LABS: ANISOCYTOSIS SLIGHT; HYPOCHROMIC MODERATE; MICROCYTOSIS MODERATE; OVALOCYTES SLIGHT; POLYCHROMIC SLIGHT
[2018-07-08 06:58] VITALS: RESP 20
[2018-07-08] MEDS: (Novolog) Insulin Aspart, Recombinant 100 u/ml 10 ml vial SC SCH ×4 (08:40→21:43)
[2018-07-08] MEDS ORDERED: Enoxaparin 40 mg Syringe SC SCH ×2 (10:00→18:00)
--- NOTE | 2018-07-08 10:07 | CP.PCM.CON ---
History of Present Illness - History of Present Illness History of Present Illness: history from chart, pt is a poor historian 67 year old male with history of Atrial Fibrillation, Diabetes, Hepatitis, HTN, Hypercholesterolemia,anemia,melanoma,IV heroin abuse presents to the ED BIBA for evaluation of feeling unhappy and depressed about his life. As per EMS, patient was sitting outside neighbor's outside and seemed confused and was shaking. Reports doing IV heroin today. Also states he fell yesterday and hit his head. He is intermittently confused and unclear when answering questions. denies any prior hx of kidney dz no nsaid use good uop, no hematuria or dysuria Review of Systems - Review of Systems All systems: reviewed and no additional remarkable complaints except (as per hpi) Past Patient History - Infectious Disease Hx of Infectious Diseases: None - Past Medical History & Family History Past Medical History?: Yes - Past Social History Smoking Status: Never Smoked - CARDIAC Hx Cardiac Disorders: Yes Hx Atrial Fibrillation: Yes Hx Hypercholesterolemia: Yes Hx Hypertension: Yes - PULMONARY Hx Respiratory Disorders: No Hx Tuberculosis: No - NEUROLOGICAL Hx Neurological Disorder: No Hx Seizures: No - HEENT Hx HEENT Problems: No - RENAL Hx Chronic Kidney Disease: No - ENDOCRINE/METABOLIC Hx Endocrine Disorders: Yes Hx Diabetes Mellitus Type 2: Yes Other/Comment: neuropathy - HEMATOLOGICAL/ONCOLOGICAL Hx Blood Disorders: No Hx Human Immunodeficiency Virus (HIV): No - INTEGUMENTARY Hx Dermatological Problems: Yes Hx Melanoma: Yes (Malignant Melonoma removed 1996) - MUSCULOSKELETAL/RHEUMATOLOGICAL Hx Musculoskeletal Disorders: Yes Hx Falls: Yes - GASTROINTESTINAL Hx Gastrointestinal Disorders: No - GENITOURINARY/GYNECOLOGICAL Hx Genitourinary Disorders: No Hx Sexually Transmitted Disorders: No - PSYCHIATRIC Hx Psychophysiologic Disorder: Yes Hx Substance Use: Yes (Heroin 9-12 Bag a day.) - SURGICAL HISTORY Hx Surgeries: Yes Hx Musculoskeletal Surgery: Yes (BILATERAL KNEE, CARPAL TUNNEL) Other/Comment: Umbilical Hernia Repair. B/L Knee Artho,. lymph nodes removeded from jamal axilla - ANESTHESIA Hx Anesthesia: Yes Hx Anesthesia Reactions: No Hx Malignant Hyperthermia: No Meds Allergies/Adverse Reactions: Allergies Allergy/AdvReac Type Severity Reaction Status Date / Time No Known Allergies Allergy Verified 07/06/18 21:19 - Medications Medications: Current Medications Dextrose (Dextrose 50% Inj) 0 ml IV STAT PRN; Protocol PRN Reason: Hypoglycemia Protocol Dextrose (Glutose 15) 0 gm PO ONCE PRN; Protocol PRN Reason: Hypoglycemia Protocol Enoxaparin Sodium (Lovenox) 40 mg SC DAILY [facility] Glucagon (Glucagen Diagnostic Kit) 0 mg IM STAT PRN; Protocol PRN Reason: Hypoglycemia Protocol Ceftriaxone Sodium 1 gm/ (Sodium Chloride) 100 mls @ 100 mls/hr IVPB DAILY [facility]; Protocol Last Admin: 07/07/18 09:39 Dose: 100 mls/hr Dextrose (Dextrose 5% In Water 1000 Ml) 1,000 mls @ 0 mls/hr IV .Q0M PRN; Protocol PRN Reason: Hypoglycemia Protocol Influenza Virus Vaccine (Fluzone Quad 6130-2097) 60 mcg IM .ONCE ONE Stop: 07/09/18 14:01 Insulin Aspart (Novolog) 0 unit SC ACHS [facility]; Protocol Last Admin: 07/07/18 22:31 Dose: Not Given Lorazepam (Ativan) 2 mg IVP ONCE PRN PRN Reason: Agitation Pantoprazole Sodium (Protonix Inj) 40 mg IVP DAILY [facility] Last Admin: 07/07/18 09:40 Dose: 40 mg Physical Exam - Constitutional Appears: Non-toxic, No Acute Distress, Chronically Ill - Head Exam Head Exam: NORMAL INSPECTION, NORMOCEPHALIC - Eye Exam Eye Exam: Normal appearance, PERRL - ENT Exam ENT Exam: Mucous Membranes Moist, Normal Exam - Neck Exam Neck exam: Positive for: Full Rom, Normal Inspection - Respiratory Exam Respiratory Exam: NORMAL BREATHING PATTERN - Cardiovascular Exam Cardiovascular Exam: REGULAR RHYTHM, RRR - GI/Abdominal Exam GI & Abdominal Exam: Distended, Normal Bowel Sounds, Soft - Extremities Exam Extremities exam: Positive for: full ROM, normal inspection - Back Exam Back exam: NORMAL INSPECTION - Neurological Exam Neurological exam: Alert, Oriented x3 - Psychiatric Exam Psychiatric exam: Normal Affect, Normal Mood - Skin Skin Exam: Dry, Intact Results - Vital Signs Recent Vital Signs: Last Vital Signs Temp 98.1 F 07/08/18 08:12 Pulse 78 07/08/18 08:12 Resp 20 07/08/18 08:12 BP 101/60 07/08/18 08:12 Pulse Ox 95 07/08/18 08:12 - Labs Result Diagrams: 07/07/18 20:41 07/06/18 21:36 Labs: Laboratory Results - last 24 hr 07/07/18 07/07/18 07/07/18 00:40 02:38 11:25 WBC RBC Hgb Hct MCV MCH MCHC RDW Plt Count MPV Neut % (Auto) Lymph % (Auto) [place] % (Auto) Eos % (Auto) Baso % (Auto) Neut # (Auto) Lymph # (Auto) [place] # (Auto) Eos # (Auto) Baso # (Auto) Neutrophils % (Manual) Lymphocytes % (Manual) Monocytes % (Manual) Eosinophils % (Manual) Platelet Estimate Polychromasia Hypochromasia (manual) Anisocytosis (manual) Microcytosis (manual) Ovalocytes POC Glucose (mg/dL) 227 H Procalcitonin 0.45 Blood Type O POSITIVE Antibody Screen Negative 07/07/18 07/07/18 07/07/18 16:15 20:41 21:28 WBC 10.5 RBC 2.55 L Hgb 6.4 L* Hct 19.4 L MCV 76.0 L MCH 25.0 L MCHC 32.8 L RDW 20.7 H Plt Count 278 MPV 7.4 Neut % (Auto) 81.7 H Lymph % (Auto) 8.7 L [place] % (Auto) 8.8 Eos % (Auto) 0.3 Baso % (Auto) 0.5 Neut # (Auto) 8.6 H Lymph # (Auto) 0.9 L [place] # (Auto) 0.9 H Eos # (Auto) 0.0 Baso # (Auto) 0.0 Neutrophils % (Manual) 84 H Lymphocytes % (Manual) 8 L Monocytes % (Manual) 7 Eosinophils % (Manual) 1 Platelet Estimate Normal Polychromasia Slight Hypochromasia (manual) Moderate Anisocytosis (manual) Slight Microcytosis (manual) Moderate Ovalocytes Slight POC Glucose (mg/dL) 193 H 142 H Procalcitonin Blood Type Antibody Screen 07/08/18 06:37 WBC RBC Hgb Hct MCV MCH MCHC RDW Plt Count MPV Neut % (Auto) Lymph % (Auto) [place] % (Auto) Eos % (Auto) Baso % (Auto) Neut # (Auto) Lymph # (Auto) [place] # (Auto) Eos # (Auto) Baso # (Auto) Neutrophils % (Manual) Lymphocytes % (Manual) Monocytes % (Manual) Eosinophils % (Manual) Platelet Estimate Polychromasia Hypochromasia (manual) Anisocytosis (manual) Microcytosis (manual) Ovalocytes POC Glucose (mg/dL) 155 H Procalcitonin Blood Type Antibody Screen Assessment & Plan (1) Anemia Status: Acute (2) Atrial fibrillation Status: Acute (3) Opiate addiction Status: Acute (4) Renal insufficiency Status: Acute (5) Diabetes mellitus Status: Acute (6) Electrolyte abnormality Status: Acute - Assessment and Plan (Free Text) Assessment: # altered mental status / metabolic encephalopathy # hyponatremia # nai, possible underlying ckd # severe anemia # heroin use plan: iv fluids renal US repeat stat bmp urine protein quantification. urine osm, na transfuse blood per primary team r/o GI bleed further renal work up depending on above.
--- NOTE | 2018-07-08 10:25 | CP.PCM.CON ---
History of Present Illness - History of Present Illness History of Present Illness: 67 year old male with history of IV heroin abuse presents to the ED BIB[facility] for evaluation of feeling unhappy and depressed about his life. PMH Atrial Fibrillation, Diabetes, Hepatitis, HTN, Hypercholesterolemia,anemia,melanoma,IV heroin abuse Review of Systems - Review of Systems All systems: reviewed and no additional remarkable complaints except - Constitutional Constitutional: As Per HPI - EENT Eyes: absent: As Per HPI, Blind Spots, Blurred Vision, Change in Vision, Decreased Night Vision, Diplopia, Discharge, Dry Eye, Exophthalmos, Floaters, Irritation, Itchy Eyes, Loss of Peripheral Vision, Pain, Photophobia, Requires Corrective Lenses, Sees Flashes, Spots in Vision, Tunnel Vision, Other Visual Disturbances, Loss of Vision, Other Ears: absent: As Per HPI, Decreased Hearing, Ear Discharge, Ear Pain, Tinnitus, Abnormal Hearing, Disequilibrium, Dizziness, Other Nose/Mouth/Throat: absent: As Per HPI, Epistaxis, Nasal Congestion, Nasal Discharge, Nasal Obstruction, Nasal Trauma, Nose Pain, Post Nasal Drip, Sinus Pain, Sinus Pressure, Bleeding Gums, Change in Voice, Dental Pain, Dry Mouth, Dysphagia, Halitosis, Hoarsness, Lip Swelling, Mouth Lesions, Mouth Pain, Odynophagia, Sore Throat, Throat Swelling, Tongue Swelling, Facial Pain, Neck Pain, Neck Mass, Other - Cardiovascular Cardiovascular: absent: As Per HPI, Acrocyanosis, Chest Pain, Chest Pain at Rest, Chest Pain with Activity, Claudication, Diaphoresis, Dyspnea, Dyspnea on Exertion, Edema, Irregular Heart Rhythm, Pain Radiating to Arm/Neck/Jaw, Leg Edema, Leg Ulcers, Lightheadedness, Orthopnea, Palpitations, Paroxysmal Nocturnal Dyspnea, Pedal Edema, Radiating Pain, Rapid Heart Rate, Slow Heart Rate, Syncope, Other - Respiratory Respiratory: absent: As Per HPI, Cough, Dyspnea, Hemoptysis, Dyspnea on Exertion, Wheezing, Snoring, Stridor, Pain on Inspiration, Chest Congestion, Excessive Mucous Production, Change in Mucous Color, Pain with Coughing, Other - Gastrointestinal Gastrointestinal: absent: As Per HPI, Abdominal Pain, Belching, Bloating, Change in Bowel Habits, Change in Stool Character, Coffee Ground Emesis, Constipation, Cramping, Diarrhea, Dyspepsia, Dysphagia, Early Satiety, Excessive Flatus, Fecal Incontinence, Heartburn, Hematemesis, Hematochezia, Loose Stools, Melena, Nausea, Odynophagia, Temesmus, Vomiting, Other - Genitourinary Genitourinary: absent: As Per HPI, Change in Urinary Stream, Difficulty Urinating, Dysuria, Flank Pain, Hematuria, Pyuria, Nocturia, Urinary Incontinence, Urinary Frequency, Urinary Hesitance, Urinary Urgency, Voiding Freq/Small Amts, Freq UTI, Hx Renal/Bladder Calculi, Hx /Renal Surgery, Bladder Distension, Other - Musculoskeletal Musculoskeletal: absent: As Per HPI, Abnormal Gait, Arthralgias, Atrophy, Back Pain, Deformity, Joint Swelling, Limited Range of Motion, Loss of Height, Muscle Cramps, Muscle Weakness, Myalgias, Neck Pain, Numbness, Radiating Pain into Limb, Stiffness, Tingling, Other - Integumentary Integumentary: absent: As Per HPI, Acne, Alopecia, Bleeding Lesions, Change in Hair, Change in Nails, Change in Pigmentation, Changing Lesions, Dry Skin, Erythema, Furuncle, Hirsutism, Lesions, New Lesions, Non-Healing Lesions, Photosensitivity, Pruritus, Rash, Skin Pain, Skin Ulcer, Sores, Striae, Swelling, Unusual Bruising, Wounds, Jaundice, Other - Neurological Neurological: absent: As Per HPI, Abnormal Gait, Abnormal Hearing, Abnormal Movements, Abnormal Speech, Behavioral Changes, Burning Sensations, Confusion, Convulsions, Disequilibrium, Dizziness, Numbness, Focal Weakness, Frequent Falls, Headaches, Lack of Coordination, Loss of Vision, Memory Loss, Paresthesias, Radicular Pain, Restless Legs, Sensory Deficit, Syncope, Tingling, Tremor, Vertigo, Weakness, Other Visual Disturbances, Other - Psychiatric Psychiatric: absent: As Per HPI, Abnormal Sleep Pattern, Anhedonia, Anxiety, Auditory Hallucinations, Behavioral Changes, Change in Appetite, Change in Libido, Confusion, Depression, Difficulty Concentrating, Hallucinations, Homicidal Ideation, Hopelessness, Irritability, Memory Loss, Mood Swings, Panic Attacks, Paranoia, Suicidal Ideation, Visual Hallucinations, Tactile Hallucinations, Other Past Patient History - Infectious Disease Hx of Infectious Diseases: None - Past Medical History & Family History Past Medical History?: Yes - Past Social History Smoking Status: Never Smoked - CARDIAC Hx Cardiac Disorders: Yes Hx Atrial Fibrillation: Yes Hx Hypercholesterolemia: Yes Hx Hypertension: Yes - PULMONARY Hx Respiratory Disorders: No Hx Tuberculosis: No - NEUROLOGICAL Hx Neurological Disorder: No Hx Seizures: No - HEENT Hx HEENT Problems: No - RENAL Hx Chronic Kidney Disease: No - ENDOCRINE/METABOLIC Hx Endocrine Disorders: Yes Hx Diabetes Mellitus Type 2: Yes Other/Comment: neuropathy - HEMATOLOGICAL/ONCOLOGICAL Hx Blood Disorders: No Hx Human Immunodeficiency Virus (HIV): No - INTEGUMENTARY Hx Dermatological Problems: Yes Hx Melanoma: Yes (Malignant Melonoma removed 1996) - MUSCULOSKELETAL/RHEUMATOLOGICAL Hx Musculoskeletal Disorders: Yes Hx Falls: Yes - GASTROINTESTINAL Hx Gastrointestinal Disorders: No - GENITOURINARY/GYNECOLOGICAL Hx Genitourinary Disorders: No Hx Sexually Transmitted Disorders: No - PSYCHIATRIC Hx Psychophysiologic Disorder: Yes Hx Substance Use: Yes (Heroin 9-12 Bag a day.) - SURGICAL HISTORY Hx Surgeries: Yes Hx Musculoskeletal Surgery: Yes (BILATERAL KNEE, CARPAL TUNNEL) Other/Comment: Umbilical Hernia Repair. B/L Knee Artho,. lymph nodes removeded from jamal axilla - ANESTHESIA Hx Anesthesia: Yes Hx Anesthesia Reactions: No Hx Malignant Hyperthermia: No Meds Allergies/Adverse Reactions: Allergies Allergy/AdvReac Type Severity Reaction Status Date / Time No Known Allergies Allergy Verified 07/06/18 21:19 - Medications Medications: Current Medications Dextrose (Dextrose 50% Inj) 0 ml IV STAT PRN; Protocol PRN Reason: Hypoglycemia Protocol Dextrose (Glutose 15) 0 gm PO ONCE PRN; Protocol PRN Reason: Hypoglycemia Protocol Enoxaparin Sodium (Lovenox) 40 mg SC DAILY [facility] Glucagon (Glucagen Diagnostic Kit) 0 mg IM STAT PRN; Protocol PRN Reason: Hypoglycemia Protocol Ceftriaxone Sodium 1 gm/ (Sodium Chloride) 100 mls @ 100 mls/hr IVPB DAILY [facility]; Protocol Last Admin: 07/08/18 10:19 Dose: 100 mls/hr Dextrose (Dextrose 5% In Water 1000 Ml) 1,000 mls @ 0 mls/hr IV .Q0M PRN; Protocol PRN Reason: Hypoglycemia Protocol Influenza Virus Vaccine (Fluzone Quad [id number]) 60 mcg IM .ONCE ONE Stop: 07/09/18 14:01 Insulin Aspart (Novolog) 0 unit SC ACHS [facility]; Protocol Last Admin: 07/08/18 08:40 Dose: 1 units Lorazepam (Ativan) 2 mg IVP ONCE PRN PRN Reason: Agitation Pantoprazole Sodium (Protonix Inj) 40 mg IVP DAILY [facility] Last Admin: 07/08/18 10:19 Dose: 40 mg Physical Exam - Constitutional Appears: Non-toxic, Chronically Ill - Head Exam Head Exam: NORMOCEPHALIC - Eye Exam Eye Exam: absent: Scleral icterus - ENT Exam ENT Exam: Mucous Membranes Dry - Neck Exam Neck exam: Negative for: Lymphadenopathy - Respiratory Exam Respiratory Exam: Decreased Breath Sounds - Cardiovascular Exam Cardiovascular Exam: REGULAR RHYTHM - GI/Abdominal Exam GI & Abdominal Exam: Diminished Bowel Sounds, Soft. absent: Tenderness - Rectal Exam Rectal Exam: Deferred - Exam Exam: NORMAL INSPECTION - Extremities Exam Extremities exam: Positive for: pedal edema, tenderness, pedal pulses present. Negative for: calf tenderness - Back Exam Back exam: absent: CVA tenderness (L), CVA tenderness (R) - Neurological Exam Neurological exam: Alert, Altered, CN II-XII Intact, Reflexes Normal - Psychiatric Exam Psychiatric exam: Depressed - Skin Skin Exam: Dry Results - Vital Signs Recent Vital Signs: Last Vital Signs Temp 98.1 F 07/08/18 08:12 Pulse 78 07/08/18 08:12 Resp 20 07/08/18 08:12 BP 101/60 07/08/18 08:12 Pulse Ox 95 07/08/18 08:12 - Labs Result Diagrams: 07/08/18 18:51 07/08/18 14:48 Labs: Laboratory Results - last 24 hr 07/07/18 07/07/18 07/07/18 00:40 02:38 11:25 WBC RBC Hgb Hct MCV MCH MCHC RDW Plt Count MPV Neut % (Auto) Lymph % (Auto) [place] % (Auto) Eos % (Auto) Baso % (Auto) Neut # (Auto) Lymph # (Auto) [place] # (Auto) Eos # (Auto) Baso # (Auto) Neutrophils % (Manual) Lymphocytes % (Manual) Monocytes % (Manual) Eosinophils % (Manual) Platelet Estimate Polychromasia Hypochromasia (manual) Anisocytosis (manual) Microcytosis (manual) Ovalocytes POC Glucose (mg/dL) 227 H Procalcitonin 0.45 Blood Type O POSITIVE Antibody Screen Negative 07/07/18 07/07/18 07/07/18 16:15 20:41 21:28 WBC 10.5 RBC 2.55 L Hgb 6.4 L* Hct 19.4 L MCV 76.0 L MCH 25.0 L MCHC 32.8 L RDW 20.7 H Plt Count 278 MPV 7.4 Neut % (Auto) 81.7 H Lymph % (Auto) 8.7 L [place] % (Auto) 8.8 Eos % (Auto) 0.3 Baso % (Auto) 0.5 Neut # (Auto) 8.6 H Lymph # (Auto) 0.9 L [place] # (Auto) 0.9 H Eos # (Auto) 0.0 Baso # (Auto) 0.0 Neutrophils % (Manual) 84 H Lymphocytes % (Manual) 8 L Monocytes % (Manual) 7 Eosinophils % (Manual) 1 Platelet Estimate Normal Polychromasia Slight Hypochromasia (manual) Moderate Anisocytosis (manual) Slight Microcytosis (manual) Moderate Ovalocytes Slight POC Glucose (mg/dL) 193 H 142 H Procalcitonin Blood Type Antibody Screen 07/08/18 06:37 WBC RBC Hgb Hct MCV MCH MCHC RDW Plt Count MPV Neut % (Auto) Lymph % (Auto) [place] % (Auto) Eos % (Auto) Baso % (Auto) Neut # (Auto) Lymph # (Auto) [place] # (Auto) Eos # (Auto) Baso # (Auto) Neutrophils % (Manual) Lymphocytes % (Manual) Monocytes % (Manual) Eosinophils % (Manual) Platelet Estimate Polychromasia Hypochromasia (manual) Anisocytosis (manual) Microcytosis (manual) Ovalocytes POC Glucose (mg/dL) 155 H Procalcitonin Blood Type Antibody Screen Assessment & Plan (1) Anemia Status: Acute (2) Atrial fibrillation Status: Acute (3) Bleeding from varicose vein Status: Acute (4) Clavicle fracture Status: Acute (5) Diabetes mellitus Status: Acute (6) Diastolic CHF Status: Acute (7) Hepatitis C Status: Acute (8) Heroin dependence Status: Acute (9) History of hepatitis Status: Acute (10) History of melanoma Status: Acute - Assessment and Plan (Free Text) Assessment: cont empiric rocephin await cultures
--- NOTE | 2018-07-08 11:45 | US ---
Date of service: 07/08/2018 PROCEDURE: Ultrasound of the kidneys/urinary bladder HISTORY: acute renal failure COMPARISON: None available. TECHNIQUE: Sonogram of the kidneys and urinary bladder. FINDINGS: RIGHT KIDNEY: Measures: 10.5 x 5.2 x 5.2 cm. No obstructing calculus, hydronephrosis, or renal cyst identified. LEFT KIDNEY: Measures: 10.8 x 5.2 x 4.7 cm. No obstructing calculus, hydronephrosis, or renal cyst identified. OTHER FINDINGS: Prevoid urinary bladder measures 6.7 x 6.3 x 6.8 cm, volume 150.9 mL. Postvoid residual could not be obtained due to patient condition/inability to void. Bilateral ureteral jets were not identified. The prostate gland measures 3.5 x 2.5 x 3.4 cm, volume 18.0 mL. IMPRESSION: No obstructing calculus, hydronephrosis, or renal cyst identified. Prevoid urinary bladder measures 6.7 x 6.3 x 6.8 cm, volume 150.9 mL. Postvoid residual could not be obtained due to patient condition/inability to void. Bilateral ureteral jets were not identified.
--- NOTE | 2018-07-08 11:48 | CON ---
DATE: 07/07/2018 ATTENDING PHYSICIAN: Mireya Forrest MD LOCATION: Emergency room, bed 6. REASON FOR CONSULTATION: Change in mental status. CHIEF COMPLAINT: The patient was brought into [facility] with a history of generalized lethargy and change in mental status. From a neurological point of view, I was called in to evaluate him for further management. HISTORY OF PRESENT ILLNESS: The patient is a 67-year-old right-handed male who carries a significant history of heroin abuse in the past and narcotic abuse, presenting with change in mental status. In the emergency room, he was found to have severe anemia. No history of fall, no history of loss of consciousness; however, he is tremulous and shaking. PAST MEDICAL HISTORY: IV drug abuse, narcotic abuse. History of drug detox treatment in the last year. History of atrial fibrillation, diabetes, hepatitis, hypertension and hypercholesterolemia. SOCIAL HISTORY: No history of smoking or alcohol use. REVIEW OF SYSTEMS: Twelve-point system being reviewed. MEDICATIONS: Ceftriaxone, IV fluid, glucagon, Lovenox, multivitamins. PHYSICAL EXAMINATION VITAL SIGNS: Blood pressure 127/46, mean arterial pressure of 73, respiratory rate 18, pulse rate irregular, temperature 98.7. NECK: Supple. No carotid bruits. HEART: Sounds irregular. EXTREMITIES: Multiple abrasions with poorly maintained hygienic feet. NEUROLOGICAL EXAMINATION: MENTAL STATUS: The patient knows he is in the hospital. He knows the year. He knows the name of the president. He claims that his is on her way to pick him up. No hallucination, no suicidal ideation; however, he is agitated and combative with the nurses of not giving blood as requested. CRANIAL NERVES: Visual field intact. Responds to visual threat. Pupils reactive to light. Extraocular movement normal. No nystagmus. No primary gaze nystagmus. No facial sensory deficit. No facial asymmetry. Hearing is normal. Tongue is midline. Good gag. MOTOR: Outstretched hand with eyes closed. Tremor with asterixis more pronounced on his left than his right side. SENSORY: Significant sensorimotor neuropathy. Deep tendon reflexes are absent. Plantars are upgoing on both sides. COORDINATION: [id number] dysmetria noted on both sides. Gait is deferred at this time. CONCLUSION: The patient has been presenting with toxic versus metabolic encephalopathy which is superimposed with possible hepatic in origin. WORKUP: CT of the head, atrophy, no acute pathology noted. EKG, atrial fibrillation. BLOOD WORKUP: WBC 12.6, hemoglobin 5.2, hematocrit 16.9, platelets 347. PT 15.5, INR 1.4, PTT 29. ABG on room air: pH of 7.44, pCO2 of 30, pO2 of 97 with a bicarbonate of 21.3 with a saturation of 95.5%. Sodium 127, potassium 4.4, chloride 96, bicarbonate 16, BUN 15, creatinine 4.1, GFR 15, glucose 307, calcium 7.2. Urine shows 3+ glucose and 1+ blood, hyaline cast. Urine tox screen positive for opiates. RECOMMENDATIONS: 1. Correct the anemia with blood transfusion. 2. Correct the electrolytes. Check liver function tests. 3. EEG to rule out hepatic encephalopathy versus nonconvulsive seizures. 4. The patient agrees that the patient could have MRI of the brain. 5. Social Service should be addressed for the patient's safety following discharge. 6. The patient will be followed while he is in the hospital. Francisco Shearer MD
--- NOTE | 2018-07-08 11:54 | PN ---
DATE: 07/08/2018 TIME OF EVALUATION: 7 a.m. NEUROLOGICAL PROBLEM: Toxic superimposed with metabolic encephalopathy. PHYSICAL EXAMINATION: VITAL SIGNS: Blood pressure 112/70, respiratory rate 20, pulse rate 93 and irregular, temperature 98.9. GENERAL: The patient is sleeping, not arousable, appropriate response with noxious stimuli. Examination which is unchanged. During sleep, the patient has some involuntary movements noted on the left, which is probably secondary to periodic leg movement syndrome which is restless legs syndrome. The patient did have electrocochleogram which was reviewed by me, showed diffuse theta activities, superimposed with delta consistent with N1 sleep, superimposed with global cerebral dysfunction. No triphasic waves noted. The patient does not need MRI of the brain because of his physique and uncooperativeness. Stabilize his metabolic process and electrolytes. As far as possible, sedation should be avoided. The patient will be followed closely with you. Francisco Shearer MD
[2018-07-08] MEDS: Sodium Chloride 0.9% 1,000 ML IV SCH (13:14)
--- NOTE | 2018-07-08 14:07 | CP.PCM.PN ---
Subjective - Date & Time of Evaluation Date of Evaluation: 07/08/18 Time of Evaluation: 09:30 - Subjective Subjective: clinically same Objective - Vital Signs/Intake and Output Vital Signs (last 24 hours): Temp Pulse Resp BP Pulse Ox 98.1 F 83 20 101/60 95 07/08/18 08:12 07/08/18 12:42 07/08/18 08:12 07/08/18 08:12 07/08/18 08:12 Intake and Output: 07/08/18 07/08/18 06:59 18:59 Intake Total 650 Balance 650 - Medications Medications: Current Medications Dextrose (Dextrose 50% Inj) 0 ml IV STAT PRN; Protocol PRN Reason: Hypoglycemia Protocol Dextrose (Glutose 15) 0 gm PO ONCE PRN; Protocol PRN Reason: Hypoglycemia Protocol Enoxaparin Sodium (Lovenox) 40 mg SC DAILY [facility] Glucagon (Glucagen Diagnostic Kit) 0 mg IM STAT PRN; Protocol PRN Reason: Hypoglycemia Protocol Ceftriaxone Sodium 1 gm/ (Sodium Chloride) 100 mls @ 100 mls/hr IVPB DAILY [facility]; Protocol Last Admin: 07/08/18 10:19 Dose: 100 mls/hr Dextrose (Dextrose 5% In Water 1000 Ml) 1,000 mls @ 0 mls/hr IV .Q0M PRN; Protocol PRN Reason: Hypoglycemia Protocol Sodium Chloride (Sodium Chloride 0.9%) 1,000 mls @ 60 mls/hr IV .[id number] [facility] Last Admin: 07/08/18 13:14 Dose: 60 mls/hr Influenza Virus Vaccine (Fluzone Quad [id number]) 60 mcg IM .ONCE ONE Stop: 07/09/18 14:01 Insulin Aspart (Novolog) 0 unit SC ACHS [facility]; Protocol Last Admin: 07/08/18 13:14 Dose: 2 units Lorazepam (Ativan) 2 mg IVP ONCE PRN PRN Reason: Agitation Pantoprazole Sodium (Protonix Inj) 40 mg IVP DAILY [facility] Last Admin: 07/08/18 10:19 Dose: 40 mg - Labs Labs: 07/07/18 20:41 07/06/18 21:36 PT 15.5 SECONDS (9.7-12.2) H 07/06/18 21:36 INR 1.4 07/06/18 21:36 APTT 29 SECONDS (21-34) 07/06/18 21:36 - Constitutional Appears: Well - Head Exam Head Exam: ATRAUMATIC, NORMAL INSPECTION, NORMOCEPHALIC - Eye Exam Eye Exam: EOMI, Normal appearance, PERRL Pupil Exam: NORMAL ACCOMODATION, PERRL - ENT Exam ENT Exam: Mucous Membranes Moist, Normal Exam - Neck Exam Neck Exam: Full ROM, Normal Inspection. absent: Lymphadenopathy - Respiratory Exam Respiratory Exam: Decreased Breath Sounds - Cardiovascular Exam Cardiovascular Exam: REGULAR RHYTHM, +S1, +S2 - GI/Abdominal Exam GI & Abdominal Exam: Soft, Diminished Bowel Sounds - Rectal Exam Rectal Exam: Deferred Assessment and Plan - Assessment and Plan (Free Text) Plan: will consier startng xarelto once anemia is mor stable cardio id neuro eval myranda as ordered iv rocephin more alrt adn awke and asnwers all questions
[2018-07-08 14:32] LABS: CREATININE, RANDOM URINE 55.2 mg/dL
--- NOTE | 2018-07-08 15:07 | EEG ---
DATE: 07/08/2018 This is a 16-channel electroencephalogram of confused adult. During the study, photic stimulation was performed. Hyperventilation was not performed. The resting electroencephalogram consists of 30 to 40 microvolts diffuse delta mixed with low theta activity seen in the posterior dominant rhythm. Anteriorly fast activities superimposed with 2 to 3 Hz delta activities seen. This all frontal and temporal activities are contaminated with muscle artifacts repeated which followed with high amplitude 2 to 3 Hz delta activity seen consistent with N1 sleep. Some movement artifact and loose electrode artifact at central leads. Photic stimulation did not evoke a driving response noted at 2 to 20 Hz. CONCLUSION: This is a globally abnormal electroencephalogram because of persistent slowing throughout the record, suggestive of bilateral cerebral dysfunction. It is probably secondary to metabolic, vascular or degenerative process. This study also shows atrial fibrillation with rate of 60 to 68 per minute. Please correlate the finding with neurological and radiological studies. Francisco Shearer MD
[2018-07-08 15:17] LABS: ALBUMIN 3.6 g/dL (3.5-5.0); CALCIUM 8.2 mg/dl (8.6-10.4)
[2018-07-08 15:46] LABS: HEPATITIS B SURFACE AG Negative (NEGATIVE)
[2018-07-08 15:51] LABS: HEPATITIS A IGM NEGATIVE (NEGATIVE); HEPATITIS B CORE AB NEGATIVE (NEGATIVE)
[2018-07-08 15:52] LABS: FERRITIN 63.2 ng/mL
[2018-07-08 18:00] LABS: HEPATITIS C ANTIBODY REACTIVE (NEGATIVE)
[2018-07-08 18:54] LABS: FOLATE 14.6 ng/mL
[2018-07-08 18:55] LABS: BASO # 0.1 K/uL (0.0-0.2); BASO % 0.4 % (0.0-2.0); EOS # 0.1 K/uL (0.0-0.7); EOS % 0.7 % (0.0-4.0); HEMOGLOBIN 7.9 g/dL (12.0-18.0); LYMPH # 0.6 K/uL (1.0-4.3); MEAN CORPUSCULAR HEMOGLOBIN 24.7 pg (27.0-31.0); MEAN CORPUSCULAR HGB CONC 31.4 g/dL (33.0-37.0); MEAN PLATELET VOLUME 7.9 fL (7.2-11.7); MONO % 8.2 % (0.0-10.0); NEUT # 10.6 K/uL (1.8-7.0); NEUT % 85.7 % (50.0-75.0); PLATELET COUNT 313 K/uL (130-400); RBC 3.22 Mil/uL (4.40-5.90); RED CELL DISTRIBUTION WIDTH 19.9 % (11.5-14.5); WHITE BLOOD COUNT 12.4 K/uL (4.8-10.8)
[2018-07-08 18:56] LABS: MEAN CELL VOLUME 78.5 fL (80.0-94.0)
[2018-07-08 19:38] LABS: ANISOCYTOSIS SLIGHT; HYPOCHROMIC MODERATE; LYMPHOCYTE 8 % (20-40); MONOCYTE 11 % (0-10); MYELOCYTE 1 % (0-0); NEUTROPHIL 80 % (50-75); PLATELET ESTIMATE NORMAL (NORMAL); POIKILOCYTOSIS SLIGHT; TOTAL CELLS COUNTED 100
[2018-07-08 19:39] LABS: LARGE PLATELETS PRESENT; MICROCYTOSIS SLIGHT; OVALOCYTES SLIGHT; POLYCHROMIC SLIGHT; TARGET CELLS SLIGHT; TEARDROP CELLS SLIGHT
[2018-07-08 19:40] LABS: GIANT PLATELETS PRESENT
--- NOTE | 2018-07-08 19:47 | CP.PCM.CON ---
History of Present Illness - History of Present Illness History of Present Illness: 67 year old male with a history of HTN, DM, melanoma s/p surgery 1997, afib, heroin abuse, presenting with depression, found to have severe anemia. The patient denies abnormal bleeding but notes to bruising after a fall yesterday. He has intermittent periods of confusion. His hgb was found to be 5.2 in the ER and he is s/p 4U PRBC. Past medical history: HTN, DM, melanoma s/p surgery 1997, heroin abuse. Past surgical history: Melanoma resection 1997 Family history: Denies hematologic and oncologic problems Social history: Denies tobaco, drinks 8 beers 2-3x a week, IV heroin abuse Allergies: NKA Review of systems: All remaining review of systems including HEENT, cardiovascular, respiratory, gastrointestinal, genitourinary, muscuoskeletal, dermatologic, neurologic, and psychiatric are negative unless mentioned in the HPI. Past Patient History - Infectious Disease Hx of Infectious Diseases: None - Past Medical History & Family History Past Medical History?: Yes - Past Social History Smoking Status: Never Smoked - CARDIAC Hx Cardiac Disorders: Yes Hx Atrial Fibrillation: Yes Hx Hypercholesterolemia: Yes Hx Hypertension: Yes - PULMONARY Hx Respiratory Disorders: No Hx Tuberculosis: No - NEUROLOGICAL Hx Neurological Disorder: No Hx Seizures: No - HEENT Hx HEENT Problems: No - RENAL Hx Chronic Kidney Disease: No - ENDOCRINE/METABOLIC Hx Endocrine Disorders: Yes Hx Diabetes Mellitus Type 2: Yes Other/Comment: neuropathy - HEMATOLOGICAL/ONCOLOGICAL Hx Blood Disorders: No Hx Human Immunodeficiency Virus (HIV): No - INTEGUMENTARY Hx Dermatological Problems: Yes Hx Melanoma: Yes (Malignant Melonoma removed 1996) - MUSCULOSKELETAL/RHEUMATOLOGICAL Hx Musculoskeletal Disorders: Yes Hx Falls: Yes - GASTROINTESTINAL Hx Gastrointestinal Disorders: No - GENITOURINARY/GYNECOLOGICAL Hx Genitourinary Disorders: No Hx Sexually Transmitted Disorders: No - PSYCHIATRIC Hx Psychophysiologic Disorder: Yes Hx Substance Use: Yes (Heroin 9-12 Bag a day.) - SURGICAL HISTORY Hx Surgeries: Yes Hx Musculoskeletal Surgery: Yes (BILATERAL KNEE, CARPAL TUNNEL) Other/Comment: Umbilical Hernia Repair. B/L Knee Artho,. lymph nodes removeded from jamal axilla - ANESTHESIA Hx Anesthesia: Yes Hx Anesthesia Reactions: No Hx Malignant Hyperthermia: No Meds Allergies/Adverse Reactions: Allergies Allergy/AdvReac Type Severity Reaction Status Date / Time No Known Allergies Allergy Verified 07/06/18 21:19 - Medications Medications: Current Medications Dextrose (Dextrose 50% Inj) 0 ml IV STAT PRN; Protocol PRN Reason: Hypoglycemia Protocol Dextrose (Glutose 15) 0 gm PO ONCE PRN; Protocol PRN Reason: Hypoglycemia Protocol Enoxaparin Sodium (Lovenox) 40 mg SC Q24H [facility] Last Admin: 07/08/18 18:48 Dose: 40 mg Ferric Sodium Gluconate Complex (Ferrlecit) 125 mg IVPB DAILY [facility] Stop: 07/15/18 20:01 Glucagon (Glucagen Diagnostic Kit) 0 mg IM STAT PRN; Protocol PRN Reason: Hypoglycemia Protocol Ceftriaxone Sodium 1 gm/ (Sodium Chloride) 100 mls @ 100 mls/hr IVPB DAILY [facility]; Protocol Last Admin: 07/08/18 10:19 Dose: 100 mls/hr Dextrose (Dextrose 5% In Water 1000 Ml) 1,000 mls @ 0 mls/hr IV .Q0M PRN; Protocol PRN Reason: Hypoglycemia Protocol Sodium Chloride (Sodium Chloride 0.9%) 1,000 mls @ 60 mls/hr IV .[id number] [facility] Last Admin: 07/08/18 13:14 Dose: 60 mls/hr Influenza Virus Vaccine (Fluzone Quad [id number]) 60 mcg IM .ONCE ONE Stop: 07/09/18 14:01 Insulin Aspart (Novolog) 0 unit SC ACHS [facility]; Protocol Last Admin: 07/08/18 17:17 Dose: 3 units Lorazepam (Ativan) 2 mg IVP ONCE PRN PRN Reason: Agitation Pantoprazole Sodium (Protonix Inj) 40 mg IVP DAILY [facility] Last Admin: 07/08/18 10:19 Dose: 40 mg Physical Exam - Head Exam Additional comments: bruise on forehead - Eye Exam Eye Exam: Normal appearance - ENT Exam ENT Exam: Mucous Membranes Dry - Respiratory Exam Respiratory Exam: NORMAL BREATHING PATTERN - Cardiovascular Exam Cardiovascular Exam: +S1, +S2 - GI/Abdominal Exam GI & Abdominal Exam: Normal Bowel Sounds - Extremities Exam Extremities exam: Positive for: pedal edema - Neurological Exam Neurological exam: Altered - Psychiatric Exam Psychiatric exam: Depressed - Skin Skin Exam: Warm Results - Vital Signs Recent Vital Signs: Last Vital Signs Temp 99.8 F H 07/08/18 15:00 Pulse 90 07/08/18 16:33 Resp 20 07/08/18 15:00 BP 105/58 L 07/08/18 15:00 Pulse Ox 95 07/08/18 15:00 - Labs Result Diagrams: 07/08/18 18:51 07/08/18 14:48 Labs: Laboratory Results - last 24 hr 07/07/18 07/07/18 07/07/18 00:40 20:41 21:28 WBC 10.5 RBC 2.55 L Hgb 6.4 L* Hct 19.4 L MCV 76.0 L MCH 25.0 L MCHC 32.8 L RDW 20.7 H Plt Count 278 MPV 7.4 Neut % (Auto) 81.7 H Lymph % (Auto) 8.7 L Yell % (Auto) 8.8 Eos % (Auto) 0.3 Baso % (Auto) 0.5 Neut # (Auto) 8.6 H Lymph # (Auto) 0.9 L Yell # (Auto) 0.9 H Eos # (Auto) 0.0 Baso # (Auto) 0.0 Neutrophils % (Manual) 84 H Lymphocytes % (Manual) 8 L Monocytes % (Manual) 7 Eosinophils % (Manual) 1 Myelocytes % Platelet Estimate Normal Large Platelets Giant Platelets Polychromasia Slight Hypochromasia (manual) Moderate Poikilocytosis (manual Anisocytosis (manual) Slight Microcytosis (manual) Moderate Target Cells Tear Drop Cells Ovalocytes Slight Retic Count Sodium Potassium Chloride Carbon Dioxide Anion Gap BUN Creatinine Est GFR ( Amer) Est GFR (Non-Af Amer) POC Glucose (mg/dL) 142 H Random Glucose Calcium Phosphorus % Saturation Ferritin Total Bilirubin AST ALT Alkaline Phosphatase Ammonia Total Protein Albumin Globulin Albumin/Globulin Ratio Vitamin B12 Folate Urine Osmolality Ur Random Creatinine U Random Total Protein Ur Random Sodium Hepatitis A IgM Ab Hep Bs Antigen Hep B Core IgM Ab Hepatitis C Antibody HIV 1&2 Antibody Screen Blood Type O POSITIVE Antibody Screen Negative 07/08/18 07/08/18 07/08/18 06:37 11:50 13:51 WBC RBC Hgb Hct MCV MCH MCHC RDW Plt Count MPV Neut % (Auto) Lymph % (Auto) Yell % (Auto) Eos % (Auto) Baso % (Auto) Neut # (Auto) Lymph # (Auto) Yell # (Auto) Eos # (Auto) Baso # (Auto) Neutrophils % (Manual) Lymphocytes % (Manual) Monocytes % (Manual) Eosinophils % (Manual) Myelocytes % Platelet Estimate Large Platelets Giant Platelets Polychromasia Hypochromasia (manual) Poikilocytosis (manual Anisocytosis (manual) Microcytosis (manual) Target Cells Tear Drop Cells Ovalocytes Retic Count Sodium Potassium Chloride Carbon Dioxide Anion Gap BUN Creatinine Est GFR ( Amer) Est GFR (Non-Af Amer) POC Glucose (mg/dL) 155 H 247 H Random Glucose Calcium Phosphorus % Saturation Ferritin Total Bilirubin AST ALT Alkaline Phosphatase Ammonia Total Protein Albumin Globulin Albumin/Globulin Ratio Vitamin B12 Folate Urine Osmolality 430 Ur Random Creatinine 55.2 U Random Total Protein Ur Random Sodium 85 Hepatitis A IgM Ab Hep Bs Antigen Hep B Core IgM Ab Hepatitis C Antibody HIV 1&2 Antibody Screen Blood Type Antibody Screen 07/08/18 07/08/18 07/08/18 13:51 14:48 14:48 WBC RBC Hgb Hct MCV MCH MCHC RDW Plt Count MPV Neut % (Auto) Lymph % (Auto) Yell % (Auto) Eos % (Auto) Baso % (Auto) Neut # (Auto) Lymph # (Auto) Yell # (Auto) Eos # (Auto) Baso # (Auto) Neutrophils % (Manual) Lymphocytes % (Manual) Monocytes % (Manual) Eosinophils % (Manual) Myelocytes % Platelet Estimate Large Platelets Giant Platelets Polychromasia Hypochromasia (manual) Poikilocytosis (manual Anisocytosis (manual) Microcytosis (manual) Target Cells Tear Drop Cells Ovalocytes Retic Count Sodium 133 Potassium 3.9 Chloride 100 Carbon Dioxide 20 L Anion Gap 17 BUN 37 H Creatinine 2.3 H Est GFR ( Amer) 35 Est GFR (Non-Af Amer) 29 POC Glucose (mg/dL) Random Glucose 271 H Calcium 8.2 L Phosphorus 2.7 % Saturation Ferritin 63.2 Total Bilirubin 1.0 AST 33 ALT 45 Alkaline Phosphatase 120 Ammonia 9 Total Protein 7.3 Albumin 3.6 Globulin 3.7 Albumin/Globulin Ratio 1.0 Vitamin B12 Folate Urine Osmolality Ur Random Creatinine U Random Total Protein 34.0 H Ur Random Sodium Hepatitis A IgM Ab Hep Bs Antigen Hep B Core IgM Ab Hepatitis C Antibody HIV 1&2 Antibody Screen Blood Type Antibody Screen 07/08/18 07/08/18 07/08/18 14:48 14:48 16:36 WBC RBC Hgb Hct MCV MCH MCHC RDW Plt Count MPV Neut % (Auto) Lymph % (Auto) Yell % (Auto) Eos % (Auto) Baso % (Auto) Neut # (Auto) Lymph # (Auto) Yell # (Auto) Eos # (Auto) Baso # (Auto) Neutrophils % (Manual) Lymphocytes % (Manual) Monocytes % (Manual) Eosinophils % (Manual) Myelocytes % Platelet Estimate Large Platelets Giant Platelets Polychromasia Hypochromasia (manual) Poikilocytosis (manual Anisocytosis (manual) Microcytosis (manual) Target Cells Tear Drop Cells Ovalocytes Retic Count Sodium Potassium Chloride Carbon Dioxide Anion Gap BUN Creatinine Est GFR ( Amer) Est GFR (Non-Af Amer) POC Glucose (mg/dL) 259 H Random Glucose Calcium Phosphorus % Saturation Ferritin Total Bilirubin AST ALT Alkaline Phosphatase Ammonia Total Protein Albumin Globulin Albumin/Globulin Ratio Vitamin B12 Folate Urine Osmolality Ur Random Creatinine U Random Total Protein Ur Random Sodium Hepatitis A IgM Ab Negative Hep Bs Antigen Negative Hep B Core IgM Ab Negative Hepatitis C Antibody Reactive HIV 1&2 Antibody Screen Negative Blood Type Antibody Screen 07/08/18 07/08/18 07/08/18 17:07 17:07 17:07 WBC RBC Hgb Hct MCV MCH MCHC RDW Plt Count MPV Neut % (Auto) Lymph % (Auto) Yell % (Auto) Eos % (Auto) Baso % (Auto) Neut # (Auto) Lymph # (Auto) Yell # (Auto) Eos # (Auto) Baso # (Auto) Neutrophils % (Manual) Lymphocytes % (Manual) Monocytes % (Manual) Eosinophils % (Manual) Myelocytes % Platelet Estimate Large Platelets Giant Platelets Polychromasia Hypochromasia (manual) Poikilocytosis (manual Anisocytosis (manual) Microcytosis (manual) Target Cells Tear Drop Cells Ovalocytes Retic Count 2.6 H Sodium Potassium Chloride Carbon Dioxide Anion Gap BUN Creatinine Est GFR ( Amer) Est GFR (Non-Af Amer) POC Glucose (mg/dL) Random Glucose Calcium Phosphorus % Saturation 5 L Ferritin Total Bilirubin AST ALT Alkaline Phosphatase Ammonia Total Protein Albumin Globulin Albumin/Globulin Ratio Vitamin B12 407 Folate 14.6 Urine Osmolality Ur Random Creatinine U Random Total Protein Ur Random Sodium Hepatitis A IgM Ab Hep Bs Antigen Hep B Core IgM Ab Hepatitis C Antibody HIV 1&2 Antibody Screen Blood Type Antibody Screen 07/08/18 18:51 WBC 12.4 H RBC 3.22 L Hgb 7.9 L Hct 25.3 L MCV 78.5 L D MCH 24.7 L MCHC 31.4 L RDW 19.9 H Plt Count 313 MPV 7.9 Neut % (Auto) 85.7 H Lymph % (Auto) 5.0 L Yell % (Auto) 8.2 Eos % (Auto) 0.7 Baso % (Auto) 0.4 Neut # (Auto) 10.6 H Lymph # (Auto) 0.6 L Yell # (Auto) 1.0 H Eos # (Auto) 0.1 Baso # (Auto) 0.1 Neutrophils % (Manual) 80 H Lymphocytes % (Manual) 8 L Monocytes % (Manual) 11 H Eosinophils % (Manual) Myelocytes % 1 H Platelet Estimate Normal Large Platelets Present Giant Platelets Present Polychromasia Slight Hypochromasia (manual) Moderate Poikilocytosis (manual Slight Anisocytosis (manual) Slight Microcytosis (manual) Slight Target Cells Slight Tear Drop Cells Slight Ovalocytes Slight Retic Count Sodium Potassium Chloride Carbon Dioxide Anion Gap BUN Creatinine Est GFR ( Amer) Est GFR (Non-Af Amer) POC Glucose (mg/dL) Random Glucose Calcium Phosphorus % Saturation Ferritin Total Bilirubin AST ALT Alkaline Phosphatase Ammonia Total Protein Albumin Globulin Albumin/Globulin Ratio Vitamin B12 Folate Urine Osmolality Ur Random Creatinine U Random Total Protein Ur Random Sodium Hepatitis A IgM Ab Hep Bs Antigen Hep B Core IgM Ab Hepatitis C Antibody HIV 1&2 Antibody Screen Blood Type Antibody Screen Assessment & Plan (1) Anemia Assessment and Plan: iron deficiency anemia s/p PRBC transfusion will start IV iron recommend GI evaluation Status: Acute (2) Coagulopathy Assessment and Plan: likely nutritional ? liver disease; hep C AB positive Status: Acute (3) History of melanoma Assessment and Plan: s/p resection 1997 recommend brain imaging ? metastasis Thank you for this interesting consult. Status: Acute
[2018-07-08] MEDS ORDERED: Ferric Sodium Gluconat Complex 62.5 mg/5 ml Vial IVPB SCH (20:00)
[2018-07-08] MEDS ORDERED: Ferric Sodium Gluconat Complex 125 MG in Sodium Chloride 0.9% 100 ML IVPB SCH (20:00)
[2018-07-09] MEDS: Sodium Chloride 0.9% 1,000 ML IV SCH ×2 (04:33→09:56)
[2018-07-09 08:06] VITALS: BP 116/66; PULSE 89; TEMP 99.3; O2SAT 96
--- NOTE | 2018-07-09 09:33 | PCM.PSYCH ---
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 He had 3 detoxes and no rehab Denies all other drugs, alcohol and cigarette use. He has some withdrawal sxs and agrees to use methadone for detox, but not high dose due to moderate to mild sxs (day 3 today). He is no longer confused and denies feeling depressed. Some anxiety but no SI, HI, joan or psychosis He says he is chronically unhappy b/c he feels lonely. However, denies any past hx of suicide attempts He is aware of his medical conditions. No past psych hx Medical: DM, obese, HTN, hep C, anemia (Fe def) No family psych hx Current Medications: Active Medications Generic Name Dose Route Start Last Admin Trade Name Freq PRN Reason Stop Dose Admin Dextrose 0 ml 07/07/18 01:24 Dextrose 50% Inj IV STAT PRN Hypoglycemia Protocol Protocol Dextrose 0 gm 07/07/18 01:24 Glutose 15 PO ONCE PRN Hypoglycemia Protocol Protocol Enoxaparin Sodium 40 mg 07/08/18 18:00 07/08/18 18:48 Lovenox SC 40 mg Q24H [facility] Administration Glucagon 0 mg 07/07/18 01:24 Glucagen Diagnostic Kit IM STAT PRN Hypoglycemia Protocol Protocol Ceftriaxone Sodium 1 gm/ 100 mls @ 100 mls/hr 07/07/18 10:00 07/08/18 10:19 Sodium Chloride IVPB 100 mls/hr DAILY [facility] Administration Protocol Dextrose 1,000 mls @ 0 mls/hr 07/07/18 01:24 Dextrose 5% In Water 1000 Ml IV .Q0M PRN Hypoglycemia Protocol Protocol Per Protocol Sodium Chloride 1,000 mls @ 60 mls/hr 07/08/18 11:45 07/09/18 04:33 Sodium Chloride 0.9% IV Not Given .[id number] [facility] Ferric Sodium Gluconate 110 mls @ 110 mls/hr 07/08/18 20:00 12/18/18 20:14 Complex 125 mg/ Sodium IVPB 07/15/18 20:01 110 mls/hr Chloride Q24H [facility] Administration Influenza Virus Vaccine 60 mcg 07/09/18 14:00 Fluzone Quad [id number] IM 07/09/18 14:01 .ONCE ONE Insulin Aspart 0 unit 07/07/18 07:30 07/08/18 21:43 Novolog SC Not Given ACHS [facility] Protocol Lorazepam 2 mg 07/07/18 15:00 Ativan IVP ONCE PRN Agitation Pantoprazole Sodium 40 mg 07/07/18 10:00 07/08/18 10:19 Protonix Inj IVP 40 mg DAILY [facility] Administration Pregabalin 75 mg 07/09/18 10:00 Lyrica PO BID [facility] Past Psychiatric History - Past Psychiatric History Previous Treatment History: None Pertinent Medical Hx (Current Medical&Sleep Prob, Allergies): Allergies Allergy/AdvReac Type Severity Reaction Status Date / Time No Known Allergies Allergy Verified 07/06/18 21:19 Lisinopril 40 mg PO DAILY 11/16/14 MetFORMIN [glucOPHAGE] 1,000 mg PO BID 11/16/14 Atorvastatin [Lipitor] 40 mg PO DAILY 03/29/17 DULoxetine [Cymbalta] 30 mg PO DAILY 03/29/17 Insulin Glargine, Recombina [Lantus] 50 unit SQ HS 03/29/17 Digoxin 01/21/18 Gabapentin 01/21/18 Lisinopril 01/21/18 Xarelto 01/21/18 [id number] 01/21/18 Acetaminophen/Codeine [Tylenol/Codeine 300 MG/30 MG] 2 tab PO Q6H #20 tab 01/28/18 Review of Systems - Psychiatric Psychiatric: Abnormal Sleep Pattern, Anxiety, Difficulty Concentrating. absent: Anhedonia, Depression, Hallucinations, Homicidal Ideation, Paranoia, Suicidal Ideation Mental Status Examination - Personal Presentation Personal Presentation: Looks stated age - Affect Affect: Constricted - Motor Activity Motor Activity: Calm - Reliability in Providing Information Reliability in Providing Information: Good - Speech Speech: Organized - Mood Mood: Anxious - Formal Thought Process Formal Thought Process: No Impairment - Cognitive Functions Orientation: Person, Place, Situation, Time Sensorium: Alert Attention/Concentration: Easily distracted Estimate of Intelligence: Average Judgement: Intact, as evidence by: Insight regarding need for hospitalization Memory: Recent intact, as evidence by: Ability to recall events of the day, Remote intact, as evidenced by: Abilit to recall sig. life events - Risk Risk: Withdrawal, Diminished functioning - Strength & Assets Inventory Strength & Assets Inventory: Cooperative - Limitations Limitations: Living alone DSM 5 DX - DSM 5 DSM 5 Diagnosis: Opioid withdrawal opioid use d/o - severe Anxiety d/o - unspecified - Recommended/Plan of Treatment Treatment Recommendations and Plan of Treatment: Methadone detox from 15 mg (day 3 in the hospital) Support and psychoed prn meds refer to IOP but consider suboxone maintenance too No other psych meds for now as he doesn't want 33 min
[2018-07-09] MEDS: (Novolog) Insulin Aspart, Recombinant 100 u/ml 10 ml vial SC SCH ×2 (09:49→13:56)
--- NOTE | 2018-07-09 11:11 | PN ---
DATE: 07/09/2018 TIME OF EVALUATION: 7:10 a.m. NEUROLOGICAL PROBLEM: Toxic superimposed metabolic encephalopathy. PHYSICAL EXAMINATION: VITAL SIGNS: Blood pressure 105/58, mean arterial pressure of 73, respiratory rate 18, temperature 99.8 with the pulse rate of 78. GENERAL: The patient is awake, alert, and oriented to person, place and time. No confusion at present. He is complaining of both feet tingling and pins and needles in the incision. He did not sleep last night. Rest of the examination is unchanged compared with the previous examination. Blood workup, WBC 407, folate 14.2, ammonia level is 9. The patient pain is somewhat controlled at present. We will continue with the present management. The patient can be benefited from putting him on Lyrica and the dose can be titrated for his painful sensory motor neuropathy. Francisco Shearer MD [facility]
--- NOTE | 2018-07-09 11:26 | RAD ---
Date of service: 07/08/2018 PROCEDURE: Right Ankle Radiographs. HISTORY: pain and decreased rom COMPARISON: None available. FINDINGS: BONES: Nondisplaced fracture of the distal fibula. Achilles enthesophyte. Inferior plantar calcaneal spur. Os trigonum.. JOINTS: Normal. No osteoarthritis. Ankle mortise maintained. Talar dome intact SOFT TISSUES: Normal. OTHER FINDINGS: None. IMPRESSION: Nondisplaced fracture of the distal fibula.
--- NOTE | 2018-07-09 13:39 | CP.PCM.PN ---
Subjective - Date & Time of Evaluation Date of Evaluation: 07/09/18 Time of Evaluation: 13:36 - Subjective Subjective: no acute distress labs reviewed pt c/o insomnia notes right ankle pain no chest pain no sob no palpitations no fever no chills no diarrhea no nausea no change in urine production no rash Objective - Vital Signs/Intake and Output Vital Signs (last 24 hours): Temp Pulse Resp BP Pulse Ox 99.3 F 89 20 116/66 96 07/09/18 08:05 07/09/18 08:05 07/09/18 08:05 07/09/18 08:05 07/09/18 08:05 Intake and Output: 07/09/18 07/09/18 06:59 18:59 Intake Total 1360 Balance 1360 - Medications Medications: Current Medications Dextrose (Dextrose 50% Inj) 0 ml IV STAT PRN; Protocol PRN Reason: Hypoglycemia Protocol Dextrose (Glutose 15) 0 gm PO ONCE PRN; Protocol PRN Reason: Hypoglycemia Protocol Enoxaparin Sodium (Lovenox) 40 mg SC Q24H [facility] Last Admin: 07/08/18 18:48 Dose: 40 mg Glucagon (Glucagen Diagnostic Kit) 0 mg IM STAT PRN; Protocol PRN Reason: Hypoglycemia Protocol Ceftriaxone Sodium 1 gm/ (Sodium Chloride) 100 mls @ 100 mls/hr IVPB DAILY [facility]; Protocol Last Admin: 07/09/18 09:49 Dose: 100 mls/hr Dextrose (Dextrose 5% In Water 1000 Ml) 1,000 mls @ 0 mls/hr IV .Q0M PRN; Protocol PRN Reason: Hypoglycemia Protocol Sodium Chloride (Sodium Chloride 0.9%) 1,000 mls @ 60 mls/hr IV .[id number] [facility] Last Admin: 07/09/18 09:56 Dose: 60 mls/hr Ferric Sodium Gluconate Complex 125 mg/ Sodium Chloride 110 mls @ 110 mls/hr IVPB Q24H [facility] Stop: 07/15/18 20:01 Last Admin: 07/08/18 20:14 Dose: 110 mls/hr Influenza Virus Vaccine (Fluzone Quad [id number]) 60 mcg IM .ONCE ONE Stop: 07/09/18 14:01 Insulin Aspart (Novolog) 0 unit SC ACHS [facility]; Protocol Last Admin: 07/09/18 09:49 Dose: 3 units Lorazepam (Ativan) 2 mg IVP ONCE PRN PRN Reason: Agitation Methadone HCl (Methadone) 15 mg PO Q24H [facility]; Taper Stop: 07/12/18 09:44 Last Admin: 07/09/18 09:48 Dose: 15 mg Pantoprazole Sodium (Protonix Inj) 40 mg IVP DAILY [facility] Last Admin: 07/09/18 09:49 Dose: 40 mg Pregabalin (Lyrica) 75 mg PO BID [facility] Last Admin: 07/09/18 09:48 Dose: 75 mg - Labs Labs: 07/08/18 18:51 07/08/18 14:48 PT 15.5 SECONDS (9.7-12.2) H 07/06/18 21:36 INR 1.4 07/06/18 21:36 APTT 29 SECONDS (21-34) 07/06/18 21:36 - Constitutional Appears: No Acute Distress, Chronically Ill - Head Exam Head Exam: ATRAUMATIC, NORMAL INSPECTION - Eye Exam Eye Exam: EOMI, Normal appearance - Neck Exam Neck Exam: Full ROM. absent: Lymphadenopathy - Respiratory Exam Respiratory Exam: Clear to Ausculation Bilateral. absent: Accessory Muscle Use - Cardiovascular Exam Cardiovascular Exam: REGULAR RHYTHM. absent: Rubs - GI/Abdominal Exam Additional comments: obese, soft, nontender - Neurological Exam Neurological Exam: Alert, Awake - Psychiatric Exam Psychiatric exam: absent: Normal Affect, Normal Mood Assessment and Plan - Assessment and Plan (Free Text) Assessment: improving nai substance abuse Fe deficiency anemia check CPK monitor hematologic parameters
[2018-07-09] MEDS ORDERED: Pneumococcal 23-Valent Vaccine IM ONE (14:00)
[2018-07-09] MEDS ORDERED: Influenza Vaccine 60 MCG/0.5 ML SYR (3 yr & up) IM ONE (14:00)
--- NOTE | 2018-07-11 00:45 | CP.PCM.PN ---
Subjective - Date & Time of Evaluation Date of Evaluation: 07/09/18 Time of Evaluation: 10:00 - Subjective Subjective: Has pain in feet. Objective - Vital Signs/Intake and Output Vital Signs (last 24 hours): Temp Pulse Resp BP Pulse Ox 99.3 F 89 20 116/66 96 07/09/18 08:05 07/09/18 08:05 07/09/18 08:05 07/09/18 08:05 07/09/18 08:05 - Labs Labs: 07/08/18 18:51 07/08/18 14:48 PT 15.5 SECONDS (9.7-12.2) H 07/06/18 21:36 INR 1.4 07/06/18 21:36 APTT 29 SECONDS (21-34) 07/06/18 21:36 - Eye Exam Eye Exam: Normal appearance - ENT Exam ENT Exam: Mucous Membranes Dry - Respiratory Exam Respiratory Exam: NORMAL BREATHING PATTERN - Cardiovascular Exam Cardiovascular Exam: +S1, +S2 - GI/Abdominal Exam GI & Abdominal Exam: Normal Bowel Sounds Assessment and Plan (1) Anemia Assessment & Plan: iron deficiency anemia of CKD outpatient GI w/u s/p PRBC transfusion IV iron Status: Acute (2) Coagulopathy Status: Acute (3) History of melanoma Status: Acute
--- NOTE | 2018-07-11 23:24 | PQF ---
PROVIDER RESPONSE TEXT: Possible illicit drug overdose plus pneuonia REVIEWER QUERY TEXT: Encephalopathy Type Encephalopathy is documented in the Medical Record. Please specify type Such as: -- Alcoholic -- Anoxic -- Due to medications or drugs (please specify) -- Hepatic failure (please specify if with or without coma) -- Hypertensive -- Metabolic -- Septic -- Toxic -- Wernicke?s -- Other, please specify The patient's Clinical Indicators include: fall with forehead bruise, ADMITTED FOR AMS, ANEMIA, HEROINE ABUSE. met. v/s toxic encephalopathy anemia (iron defiency) heroine withdrawal, hyponatremia,as DISCHARGE SUMMARY ams, heroine abuse,PNA. PLEASE, CLARIFY ETIOLOGY OF AMS and FINAL DIAGNOSIS Query created by: Zulma Melton on 07/10/2018 8:13 PM Electronically signed by: Kayley SHAFER 07/11/2018 11:21 PM
== END 2018-07-09 14:46 | disposition left against medical advice (07) | DRG 917 ==
LOC: C.ER 21:11 → C.9E 23:23 → C.5S 07-07 07:21 → C.9E 07-07 07:23 → C.5S 07-07 07:48
PROVIDERS: ADMIT Internal Medicine Nephrology; ATTEND Internal Medicine Nephrology
PROC: 30233N1 Transfusion of Nonautologous Red Blood Cells into Peripheral Vein, Percutaneous Approach (ICD-10-PCS; principal; 2018-07-07)
PROC: HZ81ZZZ Medication Management for Substance Abuse Treatment, Methadone Maintenance (ICD-10-PCS; 2018-07-07)
DX: T40.1X1A Poisoning by heroin, accidental (unintentional), initial encounter (principal); J18.9 Pneumonia, unspecified organism; G92 Toxic encephalopathy; F11.23 Opioid dependence with withdrawal; N17.9 Acute kidney failure, unspecified; E87.1 Hypo-osmolality and hyponatremia; D68.9 Coagulation defect, unspecified; D50.9 Iron deficiency anemia, unspecified; J32.3 Chronic sphenoidal sinusitis; S00.83XA Contusion of other part of head, initial encounter; I48.91 Unspecified atrial fibrillation; E11.40 Type 2 diabetes mellitus with diabetic neuropathy, unspecified; B19.20 Unspecified viral hepatitis C without hepatic coma; F32.9 Major depressive disorder, single episode, unspecified; F41.9 Anxiety disorder, unspecified; E11.22 Type 2 diabetes mellitus with diabetic chronic kidney disease; D63.1 Anemia in chronic kidney disease; N18.9 Chronic kidney disease, unspecified; I12.9 Hypertensive chronic kidney disease with stage 1 through stage 4 chronic kidney disease, or unspecified chronic kidney disease; E78.00 Pure hypercholesterolemia, unspecified; E78.5 Hyperlipidemia, unspecified; G47.00 Insomnia, unspecified; W19.XXXA Unspecified fall, initial encounter; E66.9 Obesity, unspecified; Z68.38 Body mass index [BMI] 38.0-38.9, adult; Y92.9 Unspecified place or not applicable; Z85.820 Personal history of malignant melanoma of skin; Z91.81 History of falling

== ENCOUNTER 2018-07-22 11:16 | Inpatient (IN) | payer MEDICARE, MEDICAID ==
[2018-07-22 11:22] VITALS: BMI 39.1
--- NOTE | 2018-07-22 12:12 | RAD ---
HISTORY: r/o infiltrate COMPARISON: Chest x-ray performed 07/06/18 TECHNIQUE: Chest, one view. FINDINGS: Examination limited by habitus. LUNGS: No focal consolidation. Please note that chest x-ray has limited sensitivity for the detection of pulmonary masses. PLEURA: No significant pleural effusion identified. No definite pneumothorax . CARDIOVASCULAR: Cardiomegaly. No significant atherosclerotic calcification present. OSSEOUS STRUCTURES: No acute osseous abnormality identified. VISUALIZED UPPER ABDOMEN: Unremarkable. OTHER FINDINGS: Left axillary clips. IMPRESSION: Cardiomegaly. No focal consolidation. Left basilar clips.
[2018-07-22 12:19] LABS: BASO # 0.1 K/uL (0.0-0.2); BASO % 1.8 % (0.0-2.0); EOS # 0.1 K/uL (0.0-0.7); EOS % 2.2 % (0.0-4.0); HEMOGLOBIN 8.1 g/dL (12.0-18.0); LYMPH # 0.8 K/uL (1.0-4.3); MEAN CELL VOLUME 79.3 fL (80.0-94.0); MEAN CORPUSCULAR HEMOGLOBIN 26.4 pg (27.0-31.0); MEAN CORPUSCULAR HGB CONC 33.3 g/dL (33.0-37.0); MEAN PLATELET VOLUME 7.4 fL (7.2-11.7); MONO # 0.7 K/uL (0.0-0.8); MONO % 11.4 % (0.0-10.0); NEUT # 4.2 K/uL (1.8-7.0); NEUT % 71.6 % (50.0-75.0); RBC 3.07 Mil/uL (4.40-5.90); RED CELL DISTRIBUTION WIDTH 21.5 % (11.5-14.5)
[2018-07-22 12:24] LABS: WHITE BLOOD COUNT 5.9 K/uL (4.8-10.8)
[2018-07-22 12:39] LABS: SQUAMOUS EPITHIAL < 1 /hpf (0-5); URINE BILIRUBIN NEGATIVE (NEGATIVE); URINE BLOOD NEGATIVE (NEGATIVE); URINE CLARITY Clear (Clear); URINE COLOR Yellow (YELLOW); URINE GLUCOSE (UA) NORMAL (Normal); URINE LEUKOCYTE ESTERASE NEG Leu/uL (Negative); URINE PROTEIN 1+ mg/dL (NEGATIVE); URINE UROBILINOGEN NORMAL mg/dL (0.2-1.0)
[2018-07-22 12:41] LABS: ALB/GLOB RATIO 1.1 (1.0-2.1); ALBUMIN 3.4 g/dL (3.5-5.0); ALT/SGPT 17 U/L (21-72); AST/SGOT 17 U/L (17-59); BLOOD UREA NITROGEN 14 mg/dL (9-20); CALCIUM 7.7 mg/dl (8.6-10.4); GFR NON-AFRICAN AMERICAN > 60
--- NOTE | 2018-07-22 13:07 | CT ---
PROCEDURE: CT Abdomen and Pelvis without Oral or IV contrast. HISTORY: anemia, decrease appetite, mild, diffuse pain COMPARISON: Renal/urinary bladder ultrasound performed 07/08/18 TECHNIQUE: Contiguous axial images of the abdomen and pelvis. No oral or IV contrast administered. Coronal and Sagittal reformats generated and reviewed. Radiation dose: Total exam DLP = 1295.45 mGy-cm. This CT exam was performed using one or more of the following dose reduction techniques: Automated exposure control, adjustment of the mA and/or kV according to patient size, and/or use of iterative reconstruction technique. FINDINGS: There is limited evaluation of the solid organs without the administration of IV contrast. LOWER THORAX: No visible consolidation, pleural effusion, or pneumothorax. LIVER: Unremarkable. GALLBLADDER AND BILE DUCTS: Unremarkable. PANCREAS: Fatty atrophy of the pancreas. SPLEEN: Unremarkable. ADRENALS: Unremarkable. KIDNEYS AND URETERS: No hydronephrosis or obstructing renal calculus. BLADDER: Thick-walled under distended urinary bladder. REPRODUCTIVE: Unremarkable. APPENDIX: No secondary signs of acute appendicitis. BOWEL: The stomach is nondistended. Lack of oral contrast limits evaluation for bowel pathology. The bowel loops appear within normal limits of caliber without evidence of intestinal obstruction. Diverticulosis without CT evidence of acute diverticulitis. PERITONEUM: No significant free fluid. No definite free air. LYMPH NODES: No bulky lymphadenopathy identified. VASCULATURE: Atherosclerotic calcifications of the aorta. No aortic aneurysm. BONES: Multilevel degenerative changes. OTHER FINDINGS: None. IMPRESSION: Diverticulosis without CT evidence of acute diverticulitis. Thick-walled under distended urinary bladder. Recommend correlation with urinalysis. Additional findings as above.
[2018-07-22 14:05] VITALS: RESP 20
--- NOTE | 2018-07-22 16:19 | C.PDOC ---
History Of Present Illness 67 year old male presents to the emergency department with complaints of weakness and fatigue over the last few days. Patient denies chest pain and shortness of breath. Patient states that a few weeks ago he had a short stay in the hospital, and was found to be anemic but left AMA. Patient denies blood in the stool, blood in the urine, or black colored stool. Patient admits to recent 40lb weight loss, patient is unsure if it's due to water retention or decreased PO intake. Time Seen by Provider: 07/22/18 11:39 Chief Complaint (Nursing): Abnormal Labs History Per: Patient History/Exam Limitations: no limitations Onset/Duration Of Symptoms: Days Current Symptoms Are (Timing): Still Present Reports Recently: Hospitalized Past Medical History Reviewed: Historical Data, Nursing Documentation, Vital Signs Vital Signs: Last Vital Signs Temp 98.4 F 07/22/18 15:00 Pulse 85 07/22/18 15:00 Resp 20 07/22/18 15:00 BP 129/73 07/22/18 15:00 Pulse Ox 97 07/22/18 15:00 - Medical History PMH: Anemia, Atrial Fibrillation, Diabetes, Hepatitis, HTN, Hypercholesterolemia Denies: HIV, Chronic Kidney Disease, Seizures, Sexually Transmitted Disease Surgical History: No Surg Hx - [facility] Procedures DETOXIFICATION SERVICES FOR SUBSTANCE ABUSE TREATMENT (06/04/17) DRUG DETOXIFICATION (03/15/15) INDIV PSYCHOTHERAPY FOR SUBSTANCE ABUSE TREATMENT, SUPPORT (06/04/17) INDIV PSYCHOTHERAPY FOR SUBSTANCE ABUSE, COGNITIV BEHAVIORAL (06/04/17) MEDS MGMT FOR SUBSTANCE ABUSE TREATMENT, METHADONE MAINT (07/06/18) TETANUS TOXOID ADMINIST (04/19/15) TRANSFUSE NONAUT RED BLOOD CELLS IN PERIPH VEIN, PERC (07/06/18) Family History: States: No Known Family Hx - Social History Hx Tobacco Use: No Hx Alcohol Use: No Hx Substance Use: No - Immunization History Hx Tetanus Toxoid Vaccination: No (7-8 yrs ago) Hx Influenza Vaccination: Yes Hx Pneumococcal Vaccination: Yes Review Of Systems Except As Marked, All Systems Reviewed And Found Negative. Constitutional: Positive for: Weakness, Other (fatigue). Negative for: Fever, Chills Cardiovascular: Negative for: Chest Pain Gastrointestinal: Negative for: Nausea, Vomiting, Abdominal Pain, Diarrhea, M lola, Hematochezia Genitourinary: Negative for: Hematuria Physical Exam - Physical Exam Appears: Well, Non-toxic, No Acute Distress Skin: Warm, Dry, Pale Head: Atraumatic, Normacephalic Eye(s): bilateral: PERRL, EOMI, Conjunctiva Pale Nose: Normal Oral Mucosa: Moist Neck: Normal, Supple Chest: Symmetrical, No Tenderness Cardiovascular: Rhythm Irregular, Murmur (systolic) Respiratory: Rales (at the bases), No Rhonchi, No Wheezing, No Other Gastrointestinal/Abdominal: Bowel Sounds, Soft, No Tenderness, No Guarding Extremity: Swelling (+1 pitting edema) Neurological/Psych: Oriented x3, Normal Speech ED Course And Treatment - Laboratory Results Result Diagrams: 07/22/18 12:12 07/22/18 12:12 ECG Rhythm: Atrial Fibrillation Rate From EC O2 Sat by Pulse Oximetry: 97 (RA) Pulse Ox Interpretation: Normal - Other Rad CXR X-Ray: Viewed By Me, Read By Radiologist Interpretation: IMPRESSION: Cardiomegaly. No focal consolidation. Left basilar clips. - CT Scan/US CT Abdomen and Pelvis Other Rad Studies (CT/US): Read By Radiologist, Radiology Report Reviewed CT/US Interpretation: IMPRESSION: Diverticulosis without CT evidence of acute diverticulitis. Thick-walled under distended urinary bladder. Recommend correlation with urinalysis. Additional findings as above. Medical Decision Making Medical Decision Making: Plan: Blood Bank Type and Screen CT Abdomen and Pelvis EKG Chemistry CBC CXR Urine Culture Influenza Serology Urinalysis Progress: Spoke to Dr. Filippo Forrest, who will admit the patient to his service and telemetry. Disposition - Disposition Disposition: HOSPITALIZED Disposition Time: 13:00 Condition: STABLE - Clinical Impression Clinical Impression: Anemia, Weakness - Scribe Statement The provider has reviewed the documentation as recorded by the Scribe (Gold Santos) Provider Attestation: All medical record entries made by the Scribe were at my direction and personally dictated by me. I have reviewed the chart and agree that the record accurately reflects my personal performance of the history, physical exam, medical decision making, and the department course for this patient. I have also personally directed, reviewed, and agree with the discharge instructions and disposition.
--- NOTE | 2018-07-22 17:39 | CP.PCM.HP ---
Past Patient History - Infectious Disease Hx of Infectious Diseases: None - Past Medical History & Family History Past Medical History?: Yes - Past Social History Smoking Status: Former Smoker - CARDIAC Hx Atrial Fibrillation: Yes Hx Hypercholesterolemia: Yes Hx Hypertension: Yes - PULMONARY Hx Respiratory Disorders: No Hx Tuberculosis: No - NEUROLOGICAL Hx Seizures: No - HEENT Hx HEENT Problems: No - RENAL Hx Chronic Kidney Disease: No - ENDOCRINE/METABOLIC Hx Endocrine Disorders: Yes Hx Diabetes Mellitus Type 2: Yes Other/Comment: neuropathy - HEMATOLOGICAL/ONCOLOGICAL Hx Anemia: Yes Hx Human Immunodeficiency Virus (HIV): No - INTEGUMENTARY Hx Dermatological Problems: Yes Hx Melanoma: Yes (Malignant Melonoma removed 1996) - MUSCULOSKELETAL/RHEUMATOLOGICAL Hx Musculoskeletal Disorders: Yes Hx Falls: Yes - GASTROINTESTINAL Hx Gastrointestinal Disorders: No - GENITOURINARY/GYNECOLOGICAL Hx Sexually Transmitted Disorders: No - PSYCHIATRIC Hx Substance Use: No - SURGICAL HISTORY Hx Surgeries: Yes Hx Musculoskeletal Surgery: Yes (BILATERAL KNEE, CARPAL TUNNEL) Other/Comment: Umbilical Hernia Repair. B/L Knee Artho,. lymph nodes removeded from jamal axilla - ANESTHESIA Hx Anesthesia: Yes Hx Anesthesia Reactions: No Hx Malignant Hyperthermia: No Meds Allergies/Adverse Reactions: Allergies Allergy/AdvReac Type Severity Reaction Status Date / Time No Known Allergies Allergy Verified 07/22/18 11:21 Results - Vital Signs Recent Vital Signs: Last Vital Signs Temp 98.4 F 07/22/18 15:00 Pulse 85 07/22/18 15:00 Resp 20 07/22/18 15:00 BP 129/73 07/22/18 15:00 Pulse Ox 97 07/22/18 16:26 - Labs Result Diagrams: 07/22/18 12:12 07/22/18 12:12 Labs: Laboratory Results - last 24 hr 07/22/18 07/22/18 07/22/18 12:12 12:12 12:12 WBC 5.9 D RBC 3.07 L Hgb 8.1 L Hct 24.4 L MCV 79.3 L MCH 26.4 L MCHC 33.3 RDW 21.5 H Plt Count 475 H D MPV 7.4 Neut % (Auto) 71.6 Lymph % (Auto) 13.0 L Bartholomew % (Auto) 11.4 H Eos % (Auto) 2.2 Baso % (Auto) 1.8 Neut # (Auto) 4.2 Lymph # (Auto) 0.8 L Bartholomew # (Auto) 0.7 Eos # (Auto) 0.1 Baso # (Auto) 0.1 Sodium 136 Potassium 4.4 Chloride 99 Carbon Dioxide 22 Anion Gap 19 BUN 14 Creatinine 1.1 Est GFR ( Amer) > 60 Est GFR (Non-Af Amer) > 60 Random Glucose 163 H D Calcium 7.7 L Total Bilirubin 0.3 AST 17 D ALT 17 L D Alkaline Phosphatase 105 Troponin I < 0.0120 Total Protein 6.6 Albumin 3.4 L Globulin 3.2 Albumin/Globulin Ratio 1.1 Urine Color Urine Clarity Urine pH Ur Specific [place] Urine Protein Urine Glucose (UA) Urine Ketones Urine Blood Urine Nitrate Urine Bilirubin Urine Urobilinogen Ur Leukocyte Esterase Urine WBC (Auto) Urine RBC (Auto) Ur Squamous Epith Cells Hyaline Casts Influenza Typ A,B (EIA) Blood Type O POSITIVE Antibody Screen Negative 07/22/18 07/22/18 12:16 12:32 WBC RBC Hgb Hct MCV MCH MCHC RDW Plt Count MPV Neut % (Auto) Lymph % (Auto) Bartholomew % (Auto) Eos % (Auto) Baso % (Auto) Neut # (Auto) Lymph # (Auto) Bartholomew # (Auto) Eos # (Auto) Baso # (Auto) Sodium Potassium Chloride Carbon Dioxide Anion Gap BUN Creatinine Est GFR ( Amer) Est GFR (Non-Af Amer) Random Glucose Calcium Total Bilirubin AST ALT Alkaline Phosphatase Troponin I Total Protein Albumin Globulin Albumin/Globulin Ratio Urine Color Yellow Urine Clarity Clear Urine pH 5.0 Ur Specific [place] 1.018 Urine Protein 1+ H Urine Glucose (UA) Normal Urine Ketones Negative Urine Blood Negative Urine Nitrate Negative Urine Bilirubin Negative Urine Urobilinogen Normal Ur Leukocyte Esterase Neg Urine WBC (Auto) 1 Urine RBC (Auto) 1 Ur Squamous Epith Cells < 1 Hyaline Casts 11-20 H Influenza Typ A,B (EIA) Negative for flu a/b Blood Type Antibody Screen Assessment & Plan - Assessment and Plan (Free Text) Plan: cardio neuro home med [id number] aspirin as ordered
[2018-07-22] MEDS ORDERED: Digoxin 250 mcg (0.25 mg) Tab PO SCH (18:00)
[2018-07-22 18:15] VITALS: PULSE 90
[2018-07-22] MEDS ORDERED: guaiFENesin 600 mg ER Tab PO SCH (18:30)
[2018-07-22 18:45] LABS: CK-MB 1.01 ng/mL (0.0-3.38)
[2018-07-22] MEDS ORDERED: Azithromycin 500 MG in Sodium Chloride 0.9% 250 ML IVPB SCH (20:00)
[2018-07-22] MEDS: guaiFENesin DM 200 mg-20 mg/10 ml UD PO PRN (21:31)
[2018-07-22] MEDS ORDERED: (Lantus) Insulin Glargine, Recombinant SC SCH (22:00)
[2018-07-23] MEDS: guaiFENesin DM 200 mg-20 mg/10 ml UD PO PRN (05:32)
--- NOTE | 2018-07-23 06:57 | CP.PCM.CON ---
History of Present Illness - History of Present Illness History of Present Illness: CONSULTATION DICTATED INCREASING FATIGUE R/O CENTRAL CAUSE - Sz/ISCHEMIC PROCESS CONTINUE ASA WITH XERALTO OOB DM CONTROL NERUOPATHY WITH DYSAUTONOMIA FALL PRECAUTION Past Patient History - Infectious Disease Hx of Infectious Diseases: None - Past Medical History & Family History Past Medical History?: Yes - Past Social History Smoking Status: Former Smoker - CARDIAC Hx Atrial Fibrillation: Yes Hx Hypercholesterolemia: Yes Hx Hypertension: Yes - PULMONARY Hx Respiratory Disorders: No Hx Tuberculosis: No - NEUROLOGICAL Hx Seizures: No - HEENT Hx HEENT Problems: No - RENAL Hx Chronic Kidney Disease: No - ENDOCRINE/METABOLIC Hx Endocrine Disorders: Yes Hx Diabetes Mellitus Type 2: Yes Other/Comment: neuropathy - HEMATOLOGICAL/ONCOLOGICAL Hx Anemia: Yes Hx Human Immunodeficiency Virus (HIV): No - INTEGUMENTARY Hx Dermatological Problems: Yes Hx Melanoma: Yes (Malignant Melonoma removed 1996) - MUSCULOSKELETAL/RHEUMATOLOGICAL Hx Musculoskeletal Disorders: Yes Hx Falls: Yes - GASTROINTESTINAL Hx Gastrointestinal Disorders: No - GENITOURINARY/GYNECOLOGICAL Hx Sexually Transmitted Disorders: No - PSYCHIATRIC Hx Substance Use: No - SURGICAL HISTORY Hx Surgeries: Yes Hx Musculoskeletal Surgery: Yes (BILATERAL KNEE, CARPAL TUNNEL) Other/Comment: Umbilical Hernia Repair. B/L Knee Artho,. lymph nodes removeded from jamal axilla - ANESTHESIA Hx Anesthesia: Yes Hx Anesthesia Reactions: No Hx Malignant Hyperthermia: No Meds Allergies/Adverse Reactions: Allergies Allergy/AdvReac Type Severity Reaction Status Date / Time No Known Allergies Allergy Verified 07/22/18 11:21 - Medications Medications: Current Medications Aspirin (Aspirin Chewable) 81 mg PO DAILY [facility] Digoxin (Lanoxin) 0.25 mg PO DAILY@1800 [facility] Last Admin: 07/22/18 18:14 Dose: 0.25 mg Diltiazem HCl (Cardizem) 30 mg PO TID [facility] Last Admin: 07/22/18 18:57 Dose: 30 mg Duloxetine HCl (Cymbalta) 30 mg PO DAILY [facility] Gabapentin (Neurontin) 100 mg PO DAILY [facility] Last Admin: 07/22/18 18:56 Dose: 100 mg Guaifenesin (Mucinex La) 600 mg PO BID [facility] Last Admin: 07/22/18 18:56 Dose: 600 mg Guaifenesin/Dextromethorphan (Robitussin Dm) 10 ml PO Q6 PRN PRN Reason: Cough Last Admin: 07/23/18 05:32 Dose: 10 ml Azithromycin 500 mg/ Sodium (Chloride) 250 mls @ 250 mls/hr IVPB Q24H [facility]; Protocol Last Admin: 07/22/18 21:32 Dose: 250 mls/hr Ceftriaxone Sodium 1 gm/ (Sodium Chloride) 100 mls @ 100 mls/hr IVPB DAILY [facility]; Protocol Insulin Glargine (Lantus) 50 unit SC HS [facility] Last Admin: 07/22/18 21:32 Dose: 50 unit Lisinopril (Zestril) 40 mg PO DAILY [facility] Metformin HCl (Glucophage) 1,000 mg PO BIDCC [facility] Last Admin: 07/22/18 18:57 Dose: 1,000 mg Rivaroxaban (Xarelto) 20 mg PO DAILY [facility] Last Admin: 07/22/18 18:57 Dose: 20 mg Rosuvastatin Calcium (Crestor) 20 mg PO DAILY [facility] Temazepam (Restoril) 30 mg PO HS [facility] Last Admin: 07/22/18 21:31 Dose: 30 mg Results - Vital Signs Recent Vital Signs: Last Vital Signs Temp 97.7 F 07/22/18 23:25 Pulse 68 07/22/18 23:25 Resp 20 07/22/18 23:25 BP 114/64 07/22/18 23:25 Pulse Ox 96 07/22/18 23:25 - Labs Result Diagrams: 07/22/18 12:12 07/22/18 12:12 Labs: Laboratory Results - last 24 hr 07/22/18 07/22/18 07/22/18 12:12 12:12 12:12 WBC 5.9 D RBC 3.07 L Hgb 8.1 L Hct 24.4 L MCV 79.3 L MCH 26.4 L MCHC 33.3 RDW 21.5 H Plt Count 475 H D MPV 7.4 Neut % (Auto) 71.6 Lymph % (Auto) 13.0 L Irwin % (Auto) 11.4 H Eos % (Auto) 2.2 Baso % (Auto) 1.8 Neut # (Auto) 4.2 Lymph # (Auto) 0.8 L [place]win # (Auto) 0.7 Eos # (Auto) 0.1 Baso # (Auto) 0.1 Sodium 136 Potassium 4.4 Chloride 99 Carbon Dioxide 22 Anion Gap 19 BUN 14 Creatinine 1.1 Est GFR ( Amer) > 60 Est GFR (Non-Af Amer) > 60 POC Glucose (mg/dL) Random Glucose 163 H D Calcium 7.7 L Total Bilirubin 0.3 AST 17 D ALT 17 L D Alkaline Phosphatase 105 Total Creatine Kinase CK-MB (Mass) Troponin I < 0.0120 Total Protein 6.6 Albumin 3.4 L Globulin 3.2 Albumin/Globulin Ratio 1.1 Urine Color Urine Clarity Urine pH Ur Specific [place] Urine Protein Urine Glucose (UA) Urine Ketones Urine Blood Urine Nitrate Urine Bilirubin Urine Urobilinogen Ur Leukocyte Esterase Urine WBC (Auto) Urine RBC (Auto) Ur Squamous Epith Cells Hyaline Casts Influenza Typ A,B (EIA) Blood Type O POSITIVE Antibody Screen Negative 07/22/18 07/22/18 07/22/18 12:16 12:32 18:18 WBC RBC Hgb Hct MCV MCH MCHC RDW Plt Count MPV Neut % (Auto) Lymph % (Auto) Irwin % (Auto) Eos % (Auto) Baso % (Auto) Neut # (Auto) Lymph # (Auto) Irwin # (Auto) Eos # (Auto) Baso # (Auto) Sodium Potassium Chloride Carbon Dioxide Anion Gap BUN Creatinine Est GFR ( Amer) Est GFR (Non-Af Amer) POC Glucose (mg/dL) Random Glucose Calcium Total Bilirubin AST ALT Alkaline Phosphatase Total Creatine Kinase 29 L CK-MB (Mass) 1.01 Troponin I < 0.0120 Total Protein Albumin Globulin Albumin/Globulin Ratio Urine Color Yellow Urine Clarity Clear Urine pH 5.0 Ur Specific [place] 1.018 Urine Protein 1+ H Urine Glucose (UA) Normal Urine Ketones Negative Urine Blood Negative Urine Nitrate Negative Urine Bilirubin Negative Urine Urobilinogen Normal Ur Leukocyte Esterase Neg Urine WBC (Auto) 1 Urine RBC (Auto) 1 Ur Squamous Epith Cells < 1 Hyaline Casts 11-20 H Influenza Typ A,B (EIA) Negative for flu a/b Blood Type Antibody Screen 07/22/18 07/23/18 20:47 06:18 WBC RBC Hgb Hct MCV MCH MCHC RDW Plt Count MPV Neut % (Auto) Lymph % (Auto) [place]win % (Auto) Eos % (Auto) Baso % (Auto) Neut # (Auto) Lymph # (Auto) [place] # (Auto) Eos # (Auto) Baso # (Auto) Sodium Potassium Chloride Carbon Dioxide Anion Gap BUN Creatinine Est GFR ( Amer) Est GFR (Non-Af Amer) POC Glucose (mg/dL) 160 H 104 Random Glucose Calcium Total Bilirubin AST ALT Alkaline Phosphatase Total Creatine Kinase CK-MB (Mass) Troponin I Total Protein Albumin Globulin Albumin/Globulin Ratio Urine Color Urine Clarity Urine pH Ur Specific [place] Urine Protein Urine Glucose (UA) Urine Ketones Urine Blood Urine Nitrate Urine Bilirubin Urine Urobilinogen Ur Leukocyte Esterase Urine WBC (Auto) Urine RBC (Auto) Ur Squamous Epith Cells Hyaline Casts Influenza Typ A,B (EIA) Blood Type Antibody Screen
[2018-07-23 07:54] VITALS: BP 134/76; TEMP 98.3; O2SAT 97
[2018-07-23 09:12] LABS: FREE T4 1.96 ng/dL (0.78-2.19)
[2018-07-23 09:31] VITALS: PULSE 83
--- NOTE | 2018-07-23 11:15 | CON ---
DATE: 07/23/2018 ATTENDING PHYSICIAN: Mireya Forrest MD. LOCATION: The patient's room number 565, bed 1. REASON FOR THE CONSULTATION: Increasing dizziness. CHIEF COMPLAINT: The patient was brought into [facility] with history of increasing lethargy. From neurological point of view, I was called in to evaluate him for further management. HISTORY OF PRESENT ILLNESS: The patient is a 67-year-old right-handed male who has been recently discharged from the [facility], who has been admitted with change in mental status, being worked up, and he was signed out against medical advice on previous admission. He came to the hospital with increasing lethargy and fatigue. He denies any loss of consciousness. He denies any involuntary movements or bowel or bladder incontinence. This fatigue does not change in position at times, maybe lightheaded when he stands up. PAST MEDICAL HISTORY: Significant hypertension, atrial fibrillation, bilateral knee replacements, [id number] diabetes mellitus, and depression. PERSONAL HISTORY: Denies smoking or alcohol use. ALLERGIES: NO KNOWN ALLERGIES. MEDICATIONS: Aspirin, , ceftriaxone, Crestor, Cymbalta, Glucophage, Lantus insulin, Neurontin, Restoril, Xarelto, and lisinopril. PHYSICAL EXAMINATION: VITAL SIGNS: 114/64, mean artery pressure of 80, respiratory rate 16, temperature afebrile. NECK: Supple. No carotid bruit. HEART: Heart sounds irregular. EXTREMITIES: No edema in legs. NEUROLOGIC EXAMINATION: Mental status examination: He is awake, alert, and oriented to person, place, and time. Speech is clear. Naming, repetition, fluency, comprehension all within normal. Cranial nerve examination: Visual neal intact. Pupils reactive with extraocular movements normal. No nystagmus. No facial sensory deficit. No facial asymmetry. Hearing is normal. Tongue is midline. Good gag. Motor examination: Outstretched hand with eyes closed, no drift noted. Power is symmetric on either side. He could able to lift both lower extremities against gravity without any deficit, however, right leg seems to be externally rotated to compare with his left side. Deep tendon reflexes are absent. Plantars are equivocal response on both sides. Sensory examination: Significant bilateral distal symmetric sensory-motor neuropathy. Coordination: [id number] test is intact. Gait is deferred at this time. CONCLUSION: The patient has been presenting as per neurological examination with increasing lethargy. From neurological point of view, to be ruled out any ischemic process versus partial focal seizure versus complex seizures. Considering his longstanding diabetes, he has been having diabetic neuropathy which may be superimposed with dysautonomia. Cardiac causes should be ruled out as well. WORKUP: Recent CT of the head which was done with similar symptoms on 07/06/2018, no acute pathology is noted except scattered focal lucency noted in periventricular region and calcification. EKG: Atrial fibrillation. Blood workup: WBC 5.9, hemoglobin 8.1, hematocrit 24.4, platelet 475. Sodium 136, potassium 4.4, chloride 99, bicarbonate of 22, BUN 14, creatinine 1.1, GFR more than 60, glucose 104. Urinalysis is 1+ proteinuria. RECOMMENDATIONS: 1. The patient should have MRI of the brain if he is cleared by radiologist because he had a knee replacement in 2016. 2. Repeat electroencephalogram to rule out any paroxysmal activities. 3. Correct his anemia. 4. Stabilize his glycemic stage. The patient should be get out of the bed, and physical therapy should be initiated. The patient will be followed closely with you. Francisco Shearer MD
--- NOTE | 2018-07-23 18:16 | CARD ---
APPROVED REPORT Date of service: 07/22/2018 EKG Measurement Heart [id number] <Conclusion> Atrial fibrillation Nonspecific ST and T wave abnormality Abnormal ECG
== END 2018-07-23 09:38 | disposition left against medical advice (07) | DRG 948 ==
LOC: C.ER 11:16 → C.9E 13:21 → C.5S 13:56
PROVIDERS: ADMIT Internal Medicine Nephrology; ATTEND Internal Medicine Nephrology
DX: R53.1 Weakness (principal); R53.83 Other fatigue; R42 Dizziness and giddiness; E11.40 Type 2 diabetes mellitus with diabetic neuropathy, unspecified; D64.9 Anemia, unspecified; E78.00 Pure hypercholesterolemia, unspecified; I10 Essential (primary) hypertension; I48.91 Unspecified atrial fibrillation; Z85.820 Personal history of malignant melanoma of skin; Z87.891 Personal history of nicotine dependence; Z96.653 Presence of artificial knee joint, bilateral; G90.1 Familial dysautonomia [Riley-Day]

== ENCOUNTER 2018-08-28 09:50 | Inpatient (IN) | payer MEDICARE, MEDICAID ==
[2018-08-28 09:51] VITALS: PULSE 90; BMI 39.1
--- NOTE | 2018-08-28 10:18 | C.PDOC ---
History Of Present Illness 67 y/o male comes in for a head injury s/p fall at 5am this morning. Patient reports he woke up to use the bathroom, used a walker for assistance, and states my legs just gave out then fell backwards and struck the back of his head on the edge of a seat, no LOC. Patient complains of new onset neck pain since the injury but no headache, nausea, or vomiting. States he couldnt call EMS until he found his phone prior to arrival. Patient has a history of frequent falls and had multiple prior visits to the ER for similar evaluation. Last heroin use was at 20:00 last night. SP FALL @ 0500 CO HEAD INJURY. PS AWOKE TO USE BATHROOM W WALKER ASSISTANCE, "MY LEGS JUST GAVE OUT" FELL BACKWARDS AND STRUCK BACK OF HEAD ON SEAT EDGE. NO LOC AFTER HEAD INJURY. +NEW ONSET NECK PAIN SINCE INJURY. NO AVALOS, [place]. PS COULDNT CALL EMS UNTIL FOUND PHONE VISUAL EDUCATION DIRECTOR. HO FREQ FALLS, MULT PRIOR ER EVAL FOR SAME. LAST HEROIN USE @1999. AFIB ON XARALTO, IRON DEF ANEMIA Diabetes Mellitus type II, HTN, Diabetic neuropathy, melanoma s/p surgery 1997, Hepatitis B (1970) and Hepatitis C (Cured last year) and heroin abuse EXAM MILD DIST NONTOXIC HEENT +POSTERIOR L SCALP HEMATOMA W SWELL; EYES WNL; NOSE MOUTH ATRAUM NECK +LOWER MIDLINE CSPINE TEND NO DEFORM; NO SWELL NEURO AO2, NO GROSS FOCAL DEF PSYCH CALM COOPERATIVE NO ACUTE INTOX, NO ACUTE PSYCHOSIS SKIN +SCALP ABRASION NO ACTIVE BLEED; MULT OLD BRUISING GENERALIZED REMAINDER NEG - HPI Time Seen by Provider: 08/28/18 10:15 Chief Complaint (Nursing): Trauma History Per: Patient History/Exam Limitations: no limitations Onset/Duration Of Symptoms: Hrs Past Medical History Reviewed: Historical Data, Nursing Documentation, Vital Signs Vital Signs: Last Vital Signs Temp Pulse 66 08/28/18 10:02 Resp 20 08/28/18 10:02 BP 133/52 L 08/28/18 10:02 Pulse Ox 99 08/28/18 10:02 - Medical History PMH: Anemia, Atrial Fibrillation, Diabetes, Hepatitis, HTN, Hypercholesterolemia Denies: HIV, Chronic Kidney Disease, Seizures, Sexually Transmitted Disease Comment Only: CHF (A-fib) - [facility] Procedures DETOXIFICATION SERVICES FOR SUBSTANCE ABUSE TREATMENT (06/04/17) DRUG DETOXIFICATION (03/15/15) INDIV PSYCHOTHERAPY FOR SUBSTANCE ABUSE TREATMENT, SUPPORT (06/04/17) INDIV PSYCHOTHERAPY FOR SUBSTANCE ABUSE, COGNITIV BEHAVIORAL (06/04/17) MEDS MGMT FOR SUBSTANCE ABUSE TREATMENT, METHADONE MAINT (07/06/18) TETANUS TOXOID ADMINIST (04/19/15) TRANSFUSE NONAUT RED BLOOD CELLS IN PERIPH VEIN, PERC (07/06/18) Family History: States: No Known Family Hx, Unknown Family Hx - Social History Hx Tobacco Use: No Hx Alcohol Use: No Hx Substance Use: No - Immunization History Hx Tetanus Toxoid Vaccination: No (7-8 yrs ago) Hx Influenza Vaccination: Yes Hx Pneumococcal Vaccination: Yes Review Of Systems Except As Marked, All Systems Reviewed And Found Negative. Constitutional: Negative for: Fever, Chills Cardiovascular: Negative for: Chest Pain Respiratory: Negative for: Shortness of Breath Gastrointestinal: Negative for: Nausea, Vomiting Musculoskeletal: Positive for: Neck Pain, Other (Head Pain) Neurological: Negative for: Headache, Other (LOC) Physical Exam - Physical Exam Appears: Non-toxic, In Acute Distress (mild) Skin: Warm, Dry, Ecchymosis (multiple old bruising generalized), Other (+scalp abrasion, no active bleeding) Head: Other (posterior scalp hematoma with swelling) Eye(s): bilateral: Other (WNL) Nose: Normal, No Deformity, No Septal Hematoma Oral Mucosa: Moist, No Drooling Tongue: Normal Appearing Lips: Normal Appearing Teeth: Normal Dentition Neck: Other (Lower midline C-Spine tenderness, no deformity or swelling) Cardiovascular: Rhythm Regular, No Murmur Respiratory: Normal Breath Sounds, No Rales, No Rhonchi, No Wheezing Gastrointestinal/Abdominal: Soft, No Tenderness Extremity: Bilateral: Normal Color And Temperature, Normal ROM Neurological/Psych: Other (Awake and oriented, no gross focal deficit, calm, cooperative, no acute intoxication, no acute psychosis) ED Course And Treatment - Laboratory Results Result Diagrams: 08/28/18 12:22 08/28/18 12:22 ECG: Interpreted By Me, Viewed By Me ECG Rhythm: Atrial Fibrillation Rate From EC O2 Sat by Pulse Oximetry: 99 (RA) Pulse Ox Interpretation: Normal - Radiology CXR: Interpreted by Me CXR Interpretation: Yes: No Acute Disease (Unchanged prior) - Other Rad [facility] XR X-Ray: Interpreted by Me (negative) - CT Scan/US Head CT Other Rad Studies (CT/US): Read By Radiologist, Radiology Report Reviewed CT/US Interpretation: FINDINGS: HEMORRHAGE: No intracranial hemorrhage. BRAIN: Diffuse atrophy with prominence of the ventricles and sulci noted. No mass effect or edema. Intracranial atherosclerosis. Scattered periventricular and subcortical white matter hypodensities, which are nonspecific, but often seen with chronic microvascular ischemic disease. Area of low attenuation reidentified adjacent to the posterior horn right lateral ventricle consistent with old infarct. Please note that MRI with diffusion imaging is more sensitive in the detection of acute ischemic event. VENTRICLES: No hydrocephalus. CALVARIUM: Unremarkable. PARANASAL SINUSES: Partial opacification of the left sphenoid sinus likely cancel polyp or retention cyst. MASTOID AIR CELLS: Unremarkable as visualized. No inflammatory changes. OTHER FINDINGS: None. IMPRESSION: No acute intracranial pathology identified. Additional findings as above. C-spine CT Other Rad Studies (CT/US): Read By Radiologist, Radiology Report Reviewed CT/US Interpretation: Accession No. : [id number]. Patient Name / ID : VIRGEN GOFF / [id number]. Exam Date : 08/28/2018 11:11:10 ( Approved ). Study Comment : Sex / Age : M / 67Y. Creator : Amy Garcia. Dictator : Broderick Frankel MD. Soap Chipper : Project Coordinator : Broderick Frankel MD. Approver2 : Report Date : 08/28/2018 11:22:55. My Comment : . Date of service: 08/28/2018. PROCEDURE: CT Cervical Spine without contrast. HISTORY: TRAUMA ON ANTICOAG. COMPARISON: None available. TECHNIQUE: Axial computed tomography images were obtained of the cervical spine without the use of intravenous contrast. Coronal and sagittal reformatted images were created and reviewed. Radiation dose: Total exam DLP = 744.5 mGy-cm. This CT exam was performed using one or more of the following dose reduction techniques: Automated exposure control, adjustment of the mA and/or kV according to patient size, and/or use of iterative reconstruction technique. FINDINGS: VERTEBRAE: There reversal of cervical curvature with congenital deformity of the craniocervical junction. 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 Small segment of the anterior margins of the C1 ring is seen free from the skull base with remainder fused and inseparable. In addition, there is congenital or acquired fusion of the C5 and C6 vertebral bodies. A grade 1 spondylolisthesis identified with C3 anterior to C4. No spondylolysis. Facet joint degenerative arthropathy is seen at the upper greater than inferior facet joints throughout the cervical spine. There also fusion of the C7 and T1 vertebral bodies and bilateral facet joints. No destructive bony lesion appreciable. DISCS/SPINAL CANAL/NEURAL FORAMINA: At C3-4, excessive osteophyte development causes moderate to severe neural foraminal stenosis bilaterally with a central canal widely patent despite limited disc osteophyte complex here. At C4-5, bilateral moderate to severe neural foraminal stenosis appreciated caused by osteophytic development and spondylolisthesis without significant central canal stenosis nevertheless. At C5-6, prominent osteophytic ridging is appreciate with central component abutting if not impinging ventral cervical cord. Mild to moderate generalized central stenosis results. Moderate bilateral degenerative neural foraminal stenoses are present here. At C6-7, moderate right and moderate to severe left degenerative neural foraminal stenoses are present with a mild central stenosis caused by facet joint degenerative change and spondylosis. At C7-T1, mild degenerative neural foraminal stenoses are appreciated due to osteophyte development. No gross disc herniation is appreciate over MRI is more sensitive than CT can be utilized for added characterization. PARASPINAL SOFT TISSUES: Unremarkable. OTHER FINDINGS: None. IMPRESSION: 1. 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 2. C5 and C6 vertebral bodies are fused as well as C7-T1. Degenerative spondylolisthesis is grade 1 at C3-4. 3. No moderate or severe central stenosis identified. Multilevel degenerative neural foraminal stenoses are identified relatively diffusely, seen worst at C3-4 and C4-5 where moderate to severe neural foraminal stenoses are present. 4. Reversal of cervical curvature. Laceration - Laceration Repair No standard instances Wound Length (In cm): 2 Description Of Wound: Linear, Irregular, Contused Tissue Wound Cleansed With: Betadine, Sterile Saline Anesthesia: Lidocaine 1%, With Epi Wound Examination: Irrigated With Saline Wound Closure: Sathya (4) Wound Complexity: Simple Progress - Re-Evaluation Re-evaluation Note: 08/28/18 13:03 EXAM UNCH INITIAL. NEURO INTACT. PENDING CT CSPINE, LABS 08/28/18 13:33 D/W DR Nico KAPLAN AWARE OF ER FINDINGS WILL ADMIT - Data Reviewed Data Reviewed: Lab, Diagnostic imaging, EKG, Old records Medical Decision Making Medical Decision Making: Plan: --C-Spine CT --Head CT --EKG --Labs --Chest XR --Pelvis XR Disposition Counseled Patient/Family Regarding: Studies Performed, Diagnosis - Disposition Disposition: HOSPITALIZED Disposition Time: 13:37 Condition: STABLE - POA Present On Arrival: Falls Or Trauma - Clinical Impression Clinical Impression: Head injury without concussion or intracranial hemorrhage, Scalp abrasion, Coagulopathy, Drug abuse, Frequent falls, Hyperkalemia - Scribe Statement The provider has reviewed the documentation as recorded by the Scribe Mavis Iglesias All medical record entries made by the Scribe were at my direction and personally dictated by me. I have reviewed the chart and agree that the record accurately reflects my personal performance of the history, physical exam, medical decision making, and the department course for this patient. I have also personally directed, reviewed, and agree with the discharge instructions and disposition.
[2018-08-28] MEDS ORDERED: Lidocaine 1% w Epi 1:100,000 Inj INJ STA (10:38)
--- NOTE | 2018-08-28 11:54 | CT ---
Date of service: 08/28/2018 PROCEDURE: CT HEAD WITHOUT CONTRAST. HISTORY: TRAUMA ON ANTICOAG COMPARISON: Noncontrast head CT performed 07/06/18 TECHNIQUE: Axial computed tomography images were obtained through the head/brain without intravenous contrast. Radiation dose: Total exam DLP = 1499.3 mGy-cm. This CT exam was performed using one or more of the following dose reduction techniques: Automated exposure control, adjustment of the mA and/or kV according to patient size, and/or use of iterative reconstruction technique. FINDINGS: HEMORRHAGE: No intracranial hemorrhage. BRAIN: Diffuse atrophy with prominence of the ventricles and sulci noted. No mass effect or edema. Intracranial atherosclerosis. Scattered periventricular and subcortical white matter hypodensities, which are nonspecific, but often seen with chronic microvascular ischemic disease. Area of low attenuation reidentified adjacent to the posterior horn right lateral ventricle consistent with old infarct. Please note that MRI with diffusion imaging is more sensitive in the detection of acute ischemic event. VENTRICLES: No hydrocephalus. CALVARIUM: Unremarkable. PARANASAL SINUSES: Partial opacification of the left sphenoid sinus likely cancel polyp or retention cyst. MASTOID AIR CELLS: Unremarkable as visualized. No inflammatory changes. OTHER FINDINGS: None. IMPRESSION: No acute intracranial pathology identified. Additional findings as above.
[2018-08-28 12:34] LABS: BASO % 0.3 % (0.0-2.0); EOS % 0.1 % (0.0-4.0); HEMOGLOBIN 7.4 g/dL (12.0-18.0); LYMPH % 9.4 % (20.0-40.0); MEAN CORPUSCULAR HEMOGLOBIN 24.8 pg (27.0-31.0); MEAN CORPUSCULAR HGB CONC 30.1 g/dL (33.0-37.0); MEAN PLATELET VOLUME 7.4 fL (7.2-11.7); MONO # 0.8 K/uL (0.0-0.8); MONO % 7.5 % (0.0-10.0); NEUT # 8.5 K/uL (1.8-7.0); NEUT % 82.7 % (50.0-75.0); NRBC % 0.1 % (0.0-2.0); PLATELET COUNT 428 K/uL (130-400); RBC 2.98 Mil/uL (4.40-5.90)
[2018-08-28 12:35] LABS: MEAN CELL VOLUME 82.5 fL (80.0-94.0); WHITE BLOOD COUNT 10.3 K/uL (4.8-10.8)
[2018-08-28 12:36] LABS: INR 1.7; PROTHROMBIN TIME 18.9 SECONDS (9.7-12.2)
[2018-08-28 13:02] LABS: ALBUMIN 3.7 g/dL (3.5-5.0); BLOOD UREA NITROGEN 27 mg/dL (9-20); CALCIUM 8.2 mg/dl (8.6-10.4); GFR NON-AFRICAN AMERICAN 26
[2018-08-28] MEDS ORDERED: (Novolin R) Insulin Human Regular 100 units/ml vial IV STA (13:02)
[2018-08-28] MEDS ORDERED: Calcium Gluconate 4.65 MEQ in Dextrose 5% In Water 100 ML IV STA (13:02)
[2018-08-28 13:03] LABS: ALB/GLOB RATIO 1.1 (1.0-2.1); ALT/SGPT 10 U/L (21-72); AST/SGOT 41 U/L (17-59)
[2018-08-28] MEDS ORDERED: Dextrose 50% SYRINGE Inj (50 ml) IVP STA (13:03)
--- NOTE | 2018-08-28 13:16 | CT ---
Date of service: 08/28/2018 PROCEDURE: CT Cervical Spine without contrast HISTORY: TRAUMA ON ANTICOAG COMPARISON: None available. TECHNIQUE: Axial computed tomography images were obtained of the cervical spine without the use of intravenous contrast. Coronal and sagittal reformatted images were created and reviewed. Radiation dose: Total exam DLP = 744.5 mGy-cm. This CT exam was performed using one or more of the following dose reduction techniques: Automated exposure control, adjustment of the mA and/or kV according to patient size, and/or use of iterative reconstruction technique. FINDINGS: VERTEBRAE: There reversal of cervical curvature with congenital deformity of the craniocervical junction. 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 Small segment of the anterior margins of the C1 ring is seen free from the skull base with remainder fused and inseparable. In addition, there is congenital or acquired fusion of the C5 and C6 vertebral bodies. A grade 1 spondylolisthesis identified with C3 anterior to C4. No spondylolysis. Facet joint degenerative arthropathy is seen at the upper greater than inferior facet joints throughout the cervical spine. There also fusion of the C7 and T1 vertebral bodies and bilateral facet joints. No destructive bony lesion appreciable. DISCS/SPINAL CANAL/NEURAL FORAMINA: At C3-4, excessive osteophyte development causes moderate to severe neural foraminal stenosis bilaterally with a central canal widely patent despite limited disc osteophyte complex here. At C4-5, bilateral moderate to severe neural foraminal stenosis appreciated caused by osteophytic development and spondylolisthesis without significant central canal stenosis nevertheless. At C5-6, prominent osteophytic ridging is appreciate with central component abutting if not impinging ventral cervical cord. Mild to moderate generalized central stenosis results. Moderate bilateral degenerative neural foraminal stenoses are present here. At C6-7, moderate right and moderate to severe left degenerative neural foraminal stenoses are present with a mild central stenosis caused by facet joint degenerative change and spondylosis. At C7-T1, mild degenerative neural foraminal stenoses are appreciated due to osteophyte development. No gross disc herniation is appreciate over MRI is more sensitive than CT can be utilized for added characterization. PARASPINAL SOFT TISSUES: Unremarkable. OTHER FINDINGS: None. IMPRESSION: 1. 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 2. C5 and C6 vertebral bodies are fused as well as C7-T1. Degenerative spondylolisthesis is grade 1 at C3-4. 3. No moderate or severe central stenosis identified. Multilevel degenerative neural foraminal stenoses are identified relatively diffusely, seen worst at C3-4 and C4-5 where moderate to severe neural foraminal stenoses are present. 4. Reversal of cervical curvature.
[2018-08-28] MEDS ORDERED: Dextrose 50% SYRINGE Inj (50 ml) ONE (13:26)
[2018-08-28] MEDS ORDERED: (Novolin R) Insulin Human Regular 100 units/ml vial ONE (13:26)
[2018-08-28] MEDS ORDERED: Calcium Gluconate 4.65 mEq/10 ml Inj ONE (13:26)
[2018-08-28 13:27] LABS: ANISOCYTOSIS MODERATE; BANDS 1 % (0-2); LYMPHOCYTE 7 % (20-40); MONOCYTE 6 % (0-10); NEUTROPHIL 86 % (50-75); PLATELET ESTIMATE SLIGHTLY INCREASED (NORMAL); TOTAL CELLS COUNTED 100
[2018-08-28 13:28] LABS: HYPOCHROMIC SLIGHT; OVALOCYTES SLIGHT; POIKILOCYTOSIS SLIGHT
--- NOTE | 2018-08-28 13:50 | RAD ---
Date of service: 08/28/2018 HISTORY: TRAUMA COMPARISON: Portable chest 07/22/2018. FINDINGS: LUNGS: No active pulmonary disease. PLEURA: No significant pleural effusion identified, no pneumothorax apparent. CARDIOVASCULAR: No aortic atherosclerotic calcification present. Normal cardiac size. No pulmonary vascular congestion. OSSEOUS STRUCTURES: No significant abnormalities. VISUALIZED UPPER ABDOMEN: Normal. OTHER FINDINGS: None. IMPRESSION: No interval acute cardiopulmonary disease appreciated.
--- NOTE | 2018-08-28 13:51 | RAD ---
Date of service: 08/28/2018 PROCEDURE: Radiographs of the pelvis. HISTORY: PAIN COMPARISON: None. FINDINGS: BONES: Body habitus limits x-ray penetration. No acute displaced fracture identified throughout the pelvic ring with bilateral hip joints remarkable only for advanced degenerative joint disease. Lesser degenerative joint changes seen the bilateral sacroiliac joints with pubic symphysis intact. Pubic bony anatomy is unremarkable grossly. Small phleboliths suggested the inferior pelvis soft tissues toward the left. Advanced degenerative disease is seen at the inferior lumbar spine. JOINTS: As above. OTHER FINDINGS: None. IMPRESSION: Body habitus limits x-ray penetration. No definitive fracture or destructive bony lesion appreciated throughout the pelvis with degenerative changes otherwise seen at both hip joints and SI joints.
[2018-08-28 15:23] LABS: SQUAMOUS EPITHIAL < 1 /hpf (0-5); URINE BILIRUBIN NEGATIVE (NEGATIVE); URINE BLOOD NEGATIVE (NEGATIVE); URINE CLARITY Clear (Clear); URINE COLOR Yellow (YELLOW); URINE GLUCOSE (UA) NORMAL (Normal); URINE HYALINE CAST >20 /lpf (0-2); URINE LEUKOCYTE ESTERASE NEG Leu/uL (Negative); URINE PROTEIN 2+ mg/dL (NEGATIVE); URINE UROBILINOGEN NORMAL mg/dL (0.2-1.0)
[2018-08-28 15:44] LABS: BARBITURATES, UR NEGATIVE (NEGATIVE); PHENCYCLIDINE, UR NEGATIVE (NEGATIVE)
[2018-08-28 16:23] LABS: BENZODIAZEPINES, UR POSITIVE (NEGATIVE); OPIATES, UR POSITIVE (NEGATIVE)
[2018-08-28] MEDS: (Novolin R) Insulin Human Regular 100 units/ml vial SC SCH ×2 (17:33→21:36)
[2018-08-28] MEDS: Sodium Chloride 0.9% 1,000 ML IV SCH (17:35)
--- NOTE | 2018-08-28 17:49 | CP.PCM.HP ---
History of Present Illness - History of Present Illness History of Present Illness: 67 year old Male patient with past medical history of A. fib, DM, HTN, hepatitis presents for evaluation of head injury post fall at 5 AM in the morning. As per patient he woke up to use bathroom, used a walker for assisted and then fell backwards striking the back of his head on the edge of the seat, not associated with LOC. Patient also complains of new onset neck pain not associated with any headache, nausea, vomiting. Patient has history of frequent falls and had multiple prior visits to the ER. Last heroine use was at 8 PM last night Present on Admission - Present on Admission Any Indicators Present on Admission: No Past Patient History - Infectious Disease Hx of Infectious Diseases: None - Past Medical History & Family History Past Medical History?: Yes - Past Social History Smoking Status: Former Smoker - CARDIAC Hx Atrial Fibrillation: Yes Hx Congestive Heart Failure: (A-fib) Hx Hypercholesterolemia: Yes Hx Hypertension: Yes - PULMONARY Hx Respiratory Disorders: No Hx Tuberculosis: No - NEUROLOGICAL Hx Seizures: No - HEENT Hx HEENT Problems: No - RENAL Hx Chronic Kidney Disease: No - ENDOCRINE/METABOLIC Hx Endocrine Disorders: Yes Hx Diabetes Mellitus Type 2: Yes Other/Comment: neuropathy - HEMATOLOGICAL/ONCOLOGICAL Hx Anemia: Yes Hx Human Immunodeficiency Virus (HIV): No - INTEGUMENTARY Hx Dermatological Problems: Yes Hx Melanoma: Yes (Malignant Melonoma removed 1996) - MUSCULOSKELETAL/RHEUMATOLOGICAL Hx Musculoskeletal Disorders: Yes Hx Falls: Yes - GASTROINTESTINAL Hx Gastrointestinal Disorders: No - GENITOURINARY/GYNECOLOGICAL Hx Sexually Transmitted Disorders: No - PSYCHIATRIC Hx Substance Use: No - SURGICAL HISTORY Hx Surgeries: Yes Hx Musculoskeletal Surgery: Yes (BILATERAL KNEE, CARPAL TUNNEL) Other/Comment: Umbilical Hernia Repair. B/L Knee Artho,. lymph nodes removeded from jamal axilla - ANESTHESIA Hx Anesthesia: Yes Hx Anesthesia Reactions: No Hx Malignant Hyperthermia: No Meds Allergies/Adverse Reactions: Allergies Allergy/AdvReac Type Severity Reaction Status Date / Time No Known Allergies Allergy Verified 08/28/18 10:06 Physical Exam - Constitutional Appears: Well - Head Exam Head Exam: ATRAUMATIC, NORMAL INSPECTION, NORMOCEPHALIC - Eye Exam Eye Exam: EOMI, Normal appearance, PERRL Pupil Exam: NORMAL ACCOMODATION, PERRL - ENT Exam ENT Exam: Mucous Membranes Moist, Normal Exam - Neck Exam Neck exam: Positive for: Normal Inspection - Respiratory Exam Respiratory Exam: Decreased Breath Sounds - Cardiovascular Exam Cardiovascular Exam: REGULAR RHYTHM, +S1, +S2 - GI/Abdominal Exam GI & Abdominal Exam: Diminished Bowel Sounds, Soft - Rectal Exam Rectal Exam: Deferred Results - Vital Signs Recent Vital Signs: Last Vital Signs Temp 98.3 F 08/28/18 15:35 Pulse 71 08/28/18 15:35 Resp 20 08/28/18 15:35 BP 106/67 08/28/18 15:35 Pulse Ox 99 08/28/18 16:03 - Labs Result Diagrams: 08/30/18 13:52 08/30/18 07:01 Labs: Laboratory Results - last 24 hr 08/28/18 08/28/18 08/28/18 12:22 12:22 12:22 WBC 10.3 D RBC 2.98 L Hgb 7.4 L Hct 24.6 L MCV 82.5 D MCH 24.8 L MCHC 30.1 L RDW 21.0 H Plt Count 428 H MPV 7.4 Neut % (Auto) 82.7 H Lymph % (Auto) 9.4 L Baldwin % (Auto) 7.5 Eos % (Auto) 0.1 Baso % (Auto) 0.3 Neut # (Auto) 8.5 H Lymph # (Auto) 1.0 Baldwin # (Auto) 0.8 Eos # (Auto) 0.0 Baso # (Auto) 0.0 Neutrophils % (Manual) 86 H Band Neutrophils % 1 Lymphocytes % (Manual) 7 L Monocytes % (Manual) 6 Platelet Estimate Slightly increased H Hypochromasia (manual) Slight Poikilocytosis (manual Slight Anisocytosis (manual) Moderate Ovalocytes Slight PT 18.9 H INR 1.7 APTT 36 H Sodium 130 L Potassium 6.3 H* D Chloride 96 L Carbon Dioxide 21 L Anion Gap 19 BUN 27 H Creatinine 2.5 H Est GFR ( Amer) 31 Est GFR (Non-Af Amer) 26 POC Glucose (mg/dL) Random Glucose 168 H Calcium 8.2 L Total Bilirubin 0.7 AST 41 ALT 10 L D Alkaline Phosphatase 140 H D Total Protein 6.9 Albumin 3.7 Globulin 3.2 Albumin/Globulin Ratio 1.1 Urine Color Urine Clarity Urine pH Ur Specific [place] Urine Protein Urine Glucose (UA) Urine Ketones Urine Blood Urine Nitrate Urine Bilirubin Urine Urobilinogen Ur Leukocyte Esterase Urine WBC (Auto) Urine RBC (Auto) Ur Squamous Epith Cells Hyaline Casts Urine Opiates Screen Urine Methadone Screen Ur Barbiturates Screen Ur Phencyclidine Scrn Ur Amphetamines Screen U Benzodiazepines Scrn U Oth Cocaine Metabols U Cannabinoids Screen Alcohol, Quantitative < 10 Blood Type Antibody Screen 08/28/18 08/28/18 08/28/18 12:22 13:38 15:03 WBC RBC Hgb Hct MCV MCH MCHC RDW Plt Count MPV Neut % (Auto) Lymph % (Auto) Baldwin % (Auto) Eos % (Auto) Baso % (Auto) Neut # (Auto) Lymph # (Auto) Baldwin # (Auto) Eos # (Auto) Baso # (Auto) Neutrophils % (Manual) Band Neutrophils % Lymphocytes % (Manual) Monocytes % (Manual) Platelet Estimate Hypochromasia (manual) Poikilocytosis (manual Anisocytosis (manual) Ovalocytes PT INR APTT Sodium Potassium Chloride Carbon Dioxide Anion Gap BUN Creatinine Est GFR ( Amer) Est GFR (Non-Af Amer) POC Glucose (mg/dL) 185 H Random Glucose Calcium Total Bilirubin AST ALT Alkaline Phosphatase Total Protein Albumin Globulin Albumin/Globulin Ratio Urine Color Urine Clarity Urine pH Ur Specific [place] Urine Protein Urine Glucose (UA) Urine Ketones Urine Blood Urine Nitrate Urine Bilirubin Urine Urobilinogen Ur Leukocyte Esterase Urine WBC (Auto) Urine RBC (Auto) Ur Squamous Epith Cells Hyaline Casts Urine Opiates Screen Positive H Urine Methadone Screen Negative Ur Barbiturates Screen Negative Ur Phencyclidine Scrn Negative Ur Amphetamines Screen Negative U Benzodiazepines Scrn Positive U Oth Cocaine Metabols Negative U Cannabinoids Screen Negative Alcohol, Quantitative Blood Type O POSITIVE Antibody Screen Negative 08/28/18 08/28/18 15:03 15:58 WBC RBC Hgb Hct MCV MCH MCHC RDW Plt Count MPV Neut % (Auto) Lymph % (Auto) Baldwin % (Auto) Eos % (Auto) Baso % (Auto) Neut # (Auto) Lymph # (Auto) Baldwin # (Auto) Eos # (Auto) Baso # (Auto) Neutrophils % (Manual) Band Neutrophils % Lymphocytes % (Manual) Monocytes % (Manual) Platelet Estimate Hypochromasia (manual) Poikilocytosis (manual Anisocytosis (manual) Ovalocytes PT INR APTT Sodium Potassium Chloride Carbon Dioxide Anion Gap BUN Creatinine Est GFR ( Amer) Est GFR (Non-Af Amer) POC Glucose (mg/dL) 106 Random Glucose Calcium Total Bilirubin AST ALT Alkaline Phosphatase Total Protein Albumin Globulin Albumin/Globulin Ratio Urine Color Yellow Urine Clarity Clear Urine pH 5.0 Ur Specific [place] 1.017 Urine Protein 2+ H Urine Glucose (UA) Normal Urine Ketones Negative Urine Blood Negative Urine Nitrate Negative Urine Bilirubin Negative Urine Urobilinogen Normal Ur Leukocyte Esterase Neg Urine WBC (Auto) 2 Urine RBC (Auto) 5 H Ur Squamous Epith Cells < 1 Hyaline Casts >20 H Urine Opiates Screen Urine Methadone Screen Ur Barbiturates Screen Ur Phencyclidine Scrn Ur Amphetamines Screen U Benzodiazepines Scrn U Oth Cocaine Metabols U Cannabinoids Screen Alcohol, Quantitative Blood Type Antibody Screen
[2018-08-28 20:27] LABS: ALB/GLOB RATIO 1.1 (1.0-2.1); ALBUMIN 3.5 g/dL (3.5-5.0)
[2018-08-28] MEDS: Sod Polystyrene Sulf 15 gm/60 ml Susp PO SCH (22:16)
[2018-08-29] MEDS: Sod Polystyrene Sulf 15 gm/60 ml Susp PO SCH (02:00)
[2018-08-29] MEDS: Sodium Chloride 0.9% 1,000 ML IV SCH ×2 (06:34→20:40)
[2018-08-29 07:56] LABS: BASO # 0.1 K/uL (0.0-0.2); BASO % 0.7 % (0.0-2.0); EOS # 0.1 K/uL (0.0-0.7); EOS % 1.7 % (0.0-4.0); LYMPH # 0.9 K/uL (1.0-4.3); LYMPH % 10.9 % (20.0-40.0); MEAN CELL VOLUME 82.1 fL (80.0-94.0); MEAN CORPUSCULAR HEMOGLOBIN 25.7 pg (27.0-31.0); MEAN CORPUSCULAR HGB CONC 31.3 g/dL (33.0-37.0); MEAN PLATELET VOLUME 7.5 fL (7.2-11.7); MONO % 11.7 % (0.0-10.0); NEUT # 6.2 K/uL (1.8-7.0); RBC 2.49 Mil/uL (4.40-5.90); RED CELL DISTRIBUTION WIDTH 20.8 % (11.5-14.5); WHITE BLOOD COUNT 8.3 K/uL (4.8-10.8)
[2018-08-29 08:23] LABS: HEMOGLOBIN 6.4 g/dL (12.0-18.0)
[2018-08-29 08:27] LABS: CALCIUM 7.6 mg/dl (8.6-10.4)
--- NOTE | 2018-08-29 10:03 | PCM.PSYCH ---
Initial Psychiatric Evaluation - Initial Psychiatric Evaluation Type of Admission: Voluntary Legal Status: Capacity Chief Complaint (in patient's own words): "i dont feel well" History of Present Illness and Precipitating Events: Patient is seen, chart reviewed, and case discussed. Consult was requested for heroin withdrawal. 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 He presents for heroin detox. He admits to using 10 bags of heroin, intranasally and intravascularly, daily. He last used 2 days ago and been using heroin for more than 10 years. He states he has been to detoxes before in skilled nursing but none otherwise. Patient denies using any other substances including alcohol, cocaine, cigarettes, oxycodone, marijuana, and pills. Patient was last seen here a few weeks ago for depressive symptoms. He denies any depression or suicidal ideation currently. Patient also denies hallucinations, paranoia, and homicidial ideations. Past Psychiatric History: none Family Psych History: none PMHx: obesity, DM, HTN, Hep. C, iron deficiency anemia Meds: Cymbalta 30 mg PO daily, metformin 1000mg PO BID, Restoril 30 mg PO HS Current Medications: Active Medications Generic Name Dose Route Start Last Admin Trade Name Freq PRN Reason Stop Dose Admin Duloxetine HCl 30 mg 08/29/18 10:00 Cymbalta PO DAILY SHARIF Sodium Chloride 1,000 mls @ 70 mls/hr 08/28/18 16:00 08/29/18 06:34 Sodium Chloride 0.9% IV 70 mls/hr .[id number] SHARIF Administration Insulin Human Regular 0 unit 08/28/18 16:30 08/28/18 21:36 Novolin R SC Not Given [facility] SH[facility] Protocol Metformin HCl 1,000 mg 08/28/18 18:00 08/28/18 17:52 Glucophage PO 1,000 mg BID SHARIF Administration Methadone HCl 20 mg 08/29/18 10:30 Methadone PO 08/29/18 10:31 ONCE ONE Ondansetron HCl 4 mg 08/28/18 16:35 Zofran Inj IVP Q8H PRN Nausea/Vomiting Temazepam 30 mg 08/28/18 22:00 08/28/18 21:32 Restoril PO 30 mg HS SHARIF Administration Past Psychiatric History - Past Psychiatric History Pertinent Medical Hx (Current Medical&Sleep Prob, Allergies): Allergies Allergy/AdvReac Type Severity Reaction Status Date / Time No Known Allergies Allergy Verified 08/28/18 10:06 Lisinopril 40 mg PO DAILY 11/16/14 MetFORMIN [glucOPHAGE] 1,000 mg PO BID 11/16/14 Atorvastatin [Lipitor] 40 mg PO DAILY 03/29/17 DULoxetine [Cymbalta] 30 mg PO DAILY 03/29/17 Insulin Glargine, Recombina [Lantus] 50 unit SQ HS 03/29/17 Digoxin 01/21/18 Gabapentin 01/21/18 Xarelto 20 mg PO DAILY 01/21/18 [id number] 01/21/18 Temazepam [Restoril] 30 mg PO HS 07/22/18 DSM 5 DX - DSM 5 DSM 5 Diagnosis: Opioid withdrawal Opioid use disorder, severe - Recommended/Plan of Treatment Treatment Recommendations and Plan of Treatment: Taper with methadone Gabapentin for augmentation if needed As needed medications All risks, benefits and alternatives of the meds discussed, and the pt agreed and understood. Supportive therapy and psychoeducation RI for abstinence Encourage MAT Refer to rehab or IOP, and self-help groups Teach healthy lifestyle methods, i.e. diet, exercise, meditation Smoking cessation with RI Nicotine patch if needed 34 min Prognosis: good with treatment
[2018-08-29] MEDS: (Novolin R) Insulin Human Regular 100 units/ml vial SC SCH ×4 (10:15→21:41)
--- NOTE | 2018-08-29 17:36 | CARD ---
APPROVED REPORT Date of service: 08/28/2018 EKG Measurement Heart [id number] <Conclusion> Atrial fibrillation with slow ventricular response Low voltage QRS Nonspecific ST and T wave abnormality Abnormal ECG
--- NOTE | 2018-08-29 19:29 | CP.PCM.PN ---
Subjective - Date & Time of Evaluation Date of Evaluation: 08/29/18 Time of Evaluation: 09:15 - Subjective Subjective: clinically same Objective - Vital Signs/Intake and Output Vital Signs (last 24 hours): Temp Pulse Resp BP Pulse Ox 98.2 F 70 20 130/69 95 08/29/18 15:00 08/29/18 15:00 08/29/18 15:00 08/29/18 15:00 08/29/18 15:00 - Medications Medications: Current Medications Duloxetine HCl (Cymbalta) 30 mg PO DAILY [facility] Last Admin: 08/29/18 10:18 Dose: 30 mg Ferric Sodium Gluconate Complex (Ferrlecit) 125 mg IVPB DAILY [facility] Stop: 09/07/18 10:01 Sodium Chloride (Sodium Chloride 0.9%) 1,000 mls @ 70 mls/hr IV .[id number] [facility] Last Admin: 08/29/18 06:34 Dose: 70 mls/hr Insulin Human Regular (Novolin R) 0 unit SC ACHS [facility]; Protocol Last Admin: 08/29/18 18:16 Dose: 2 unit Metformin HCl (Glucophage) 1,000 mg PO BID [facility] Last Admin: 08/29/18 18:16 Dose: 1,000 mg Methadone HCl (Methadone) 15 mg PO Q24H [facility]; Taper Stop: 09/02/18 09:59 Ondansetron HCl (Zofran Inj) 4 mg IVP Q8H PRN PRN Reason: Nausea/Vomiting Temazepam (Restoril) 30 mg PO HS [facility] Last Admin: 08/28/18 21:32 Dose: 30 mg - Labs Labs: 08/29/18 07:49 08/29/18 07:49 PT 18.9 SECONDS (9.7-12.2) H 08/28/18 12:22 INR 1.7 08/28/18 12:22 APTT 36 SECONDS (21-34) H 08/28/18 12:22
[2018-08-30 07:36] LABS: ALT/SGPT 11 U/L (21-72); AST/SGOT 31 U/L (17-59); BLOOD UREA NITROGEN 25 mg/dL (9-20); CALCIUM 7.9 mg/dl (8.6-10.4); GFR NON-AFRICAN AMERICAN 51
[2018-08-30] MEDS: (Novolin R) Insulin Human Regular 100 units/ml vial SC SCH ×4 (07:46→21:44)
[2018-08-30 08:02] LABS: FERRITIN 41.3 ng/mL
[2018-08-30 08:33] LABS: FOLATE 10.6 ng/mL
[2018-08-30] MEDS: Sodium Chloride 0.9% 1,000 ML IV SCH (09:56)
[2018-08-30] MEDS ORDERED: Ferric Sodium Gluconat Complex 62.5 mg/5 ml Vial IVPB SCH (10:00)
--- NOTE | 2018-08-30 10:35 | CP.PCM.PN ---
Subjective - Date & Time of Evaluation Date of Evaluation: 08/30/18 Time of Evaluation: 09:15 - Subjective Subjective: clinically same Objective - Vital Signs/Intake and Output Vital Signs (last 24 hours): Temp Pulse Resp BP Pulse Ox 98.2 F 71 20 139/64 96 08/30/18 07:30 08/30/18 07:30 08/30/18 07:30 08/30/18 07:30 08/30/18 07:30 Intake and Output: 08/30/18 08/30/18 06:59 18:59 Intake Total 2080 Output Total 800 Balance 1280 - Medications Medications: Current Medications Duloxetine HCl (Cymbalta) 30 mg PO DAILY [facility] Last Admin: 08/30/18 09:51 Dose: 30 mg Ferric Sodium Gluconate Complex (Ferrlecit) 125 mg IVPB DAILY [facility] Stop: 09/07/18 10:01 Last Admin: 08/30/18 09:50 Dose: 125 mg Sodium Chloride (Sodium Chloride 0.9%) 1,000 mls @ 70 mls/hr IV .[id number] [facility] Last Admin: 08/30/18 09:56 Dose: 70 mls/hr Insulin Human Regular (Novolin R) 0 unit SC ACHS [facility]; Protocol Last Admin: 08/30/18 07:46 Dose: Not Given Metformin HCl (Glucophage) 1,000 mg PO BID [facility] Last Admin: 08/30/18 09:51 Dose: 1,000 mg Methadone HCl (Methadone) 15 mg PO Q24H [facility]; Taper Stop: 09/02/18 09:59 Last Admin: 08/30/18 09:51 Dose: 15 mg Ondansetron HCl (Zofran Inj) 4 mg IVP Q8H PRN PRN Reason: Nausea/Vomiting Temazepam (Restoril) 30 mg PO HS [facility] Last Admin: 08/29/18 21:41 Dose: 30 mg - Labs Labs: 08/29/18 07:49 08/30/18 07:01 PT 18.9 SECONDS (9.7-12.2) H 08/28/18 12:22 INR 1.7 08/28/18 12:22 APTT 36 SECONDS (21-34) H 08/28/18 12:22
[2018-08-30 14:09] LABS: BASO # 0.1 K/uL (0.0-0.2); BASO % 0.9 % (0.0-2.0); EOS # 0.1 K/uL (0.0-0.7); EOS % 1.5 % (0.0-4.0); HEMOGLOBIN 8.1 g/dL (12.0-18.0); LYMPH # 0.6 K/uL (1.0-4.3); MEAN CELL VOLUME 82.8 fL (80.0-94.0); MEAN CORPUSCULAR HEMOGLOBIN 26.4 pg (27.0-31.0); MEAN CORPUSCULAR HGB CONC 31.8 g/dL (33.0-37.0); MEAN PLATELET VOLUME 7.2 fL (7.2-11.7); MONO # 0.6 K/uL (0.0-0.8); MONO % 9.3 % (0.0-10.0); NEUT # 5.3 K/uL (1.8-7.0); NEUT % 79.3 % (50.0-75.0); PLATELET COUNT 358 K/uL (130-400); RBC 3.09 Mil/uL (4.40-5.90); RED CELL DISTRIBUTION WIDTH 20.3 % (11.5-14.5); WHITE BLOOD COUNT 6.6 K/uL (4.8-10.8)
[2018-08-30 14:43] LABS: ANISOCYTOSIS MODERATE; BANDS 1 % (0-2); EOSINOPHIL 1 % (0-4); HYPOCHROMIC MODERATE; LYMPHOCYTE 8 % (20-40); MONOCYTE 8 % (0-10); NEUTROPHIL 82 % (50-75); PLATELET ESTIMATE NORMAL (NORMAL); POLYCHROMIC SLIGHT; TOTAL CELLS COUNTED 100
[2018-08-30 14:44] LABS: MICROCYTOSIS SLIGHT; OVALOCYTES SLIGHT; POIKILOCYTOSIS SLIGHT
[2018-08-30 14:45] LABS: LARGE PLATELETS PRESENT
[2018-08-31 00:24] VITALS: BP 149/87; PULSE 85; RESP 20; TEMP 98; O2SAT 97
--- NOTE | 2018-08-31 21:40 | CP.PCM.CON ---
History of Present Illness - History of Present Illness History of Present Illness: 67 year old male with a history of heroin abuse, afib on anticoagulation, DM, HTN, neuropathy, admitted s/p fall, found to be anemic. The patient notes to his legs giving out while in the bathroom and hit the back of his head. He not es to falling a lot. He denies any abnormal bleeding and bruising. He is s/p PRBC transfusion and reports to feeling better. Past medical history: heroin abuse, afib on anticoagulation, DM, HTN, n europathy Past surgical history: Melanoma excision in Family history: Denies hematologic and oncologic problems Social history: Denies tobacco and alcohol. Uses heroin Allergies: NKA Review of systems: All remaining review of systems including HEENT, cardiovascular, respiratory, gastrointestinal, genitourinary, musculoskeletal, dermatologic, neurologic, and psychiatric are negative unless mentioned in the HPI. Past Patient History - Infectious Disease Hx of Infectious Diseases: None - Past Medical History & Family History Past Medical History?: Yes - Past Social History Smoking Status: Never Smoked - CARDIAC Hx Atrial Fibrillation: Yes Hx Pacemaker: No - PULMONARY Hx Respiratory Disorders: No Hx Tuberculosis: No - NEUROLOGICAL Hx Neurological Disorder: No Hx Seizures: No - HEENT Hx HEENT Problems: No - RENAL Hx Chronic Kidney Disease: No - ENDOCRINE/METABOLIC Hx Endocrine Disorders: Yes Hx Diabetes Mellitus Type 2: Yes Other/Comment: neuropathy - HEMATOLOGICAL/ONCOLOGICAL Hx Cancer: No - INTEGUMENTARY Hx Dermatological Problems: Yes Hx Melanoma: Yes (Malignant Melonoma removed 1996) - MUSCULOSKELETAL/RHEUMATOLOGICAL Hx Falls: Yes (hx of frequent falls) - GASTROINTESTINAL Hx Gastrointestinal Disorders: No - GENITOURINARY/GYNECOLOGICAL Hx Sexually Transmitted Disorders: No - PSYCHIATRIC Hx Substance Use: Yes (cocaine daily) - SURGICAL HISTORY Hx Surgeries: No Hx Mastectomy: No - ANESTHESIA Hx Anesthesia: Yes Hx Anesthesia Reactions: No Hx Malignant Hyperthermia: No Meds Allergies/Adverse Reactions: Allergies Allergy/AdvReac Type Severity Reaction Status Date / Time No Known Allergies Allergy Verified 08/28/18 10:06 Physical Exam - Head Exam Head Exam: ATRAUMATIC - Eye Exam Eye Exam: Normal appearance - ENT Exam ENT Exam: Mucous Membranes Dry - Respiratory Exam Respiratory Exam: NORMAL BREATHING PATTERN - Cardiovascular Exam Cardiovascular Exam: +S1, +S2 - GI/Abdominal Exam GI & Abdominal Exam: Normal Bowel Sounds - Extremities Exam Extremities exam: Positive for: pedal edema - Neurological Exam Neurological exam: Oriented x3 - Psychiatric Exam Psychiatric exam: Normal Affect, Normal Mood - Skin Skin Exam: Warm Results - Vital Signs Recent Vital Signs: Last Vital Signs Temp 98 F 08/31/18 00:00 Pulse 85 08/31/18 00:00 Resp 20 08/31/18 00:00 BP 149/87 08/31/18 00:00 Pulse Ox 97 08/31/18 00:00 - Labs Result Diagrams: 08/30/18 13:52 08/30/18 07:01 Assessment & Plan (1) Anemia Assessment and Plan: retic count, b12, folate, ferritin, FOBT to further characterize agree with transfusion support Status: Acute (2) Coagulopathy Assessment and Plan: on anticoagulation ?liver disease given prior hep B/C Thank you for this interesting consult. Status: Acute
== END 2018-08-31 06:58 | disposition left against medical advice (07) | DRG 914 ==
LOC: C.ER 09:50 → C.9E 13:38 → C.5S 14:33 → OBSVTOIN 08-30 14:40
PROVIDERS: ADMIT Internal Medicine Nephrology; ATTEND Internal Medicine Nephrology
PROC: 30233N1 Transfusion of Nonautologous Red Blood Cells into Peripheral Vein, Percutaneous Approach (ICD-10-PCS; principal; 2018-08-29)
PROC: 05HC33Z Insertion of Infusion Device into Left Basilic Vein, Percutaneous Approach (ICD-10-PCS; 2018-08-29)
PROC: B54NZZA Ultrasonography of Left Upper Extremity Veins, Guidance (ICD-10-PCS; 2018-08-29)
DX: S09.90XA Unspecified injury of head, initial encounter (principal); D68.9 Coagulation defect, unspecified; F11.23 Opioid dependence with withdrawal; S00.01XA Abrasion of scalp, initial encounter; E87.5 Hyperkalemia; D50.9 Iron deficiency anemia, unspecified; E11.40 Type 2 diabetes mellitus with diabetic neuropathy, unspecified; I11.0 Hypertensive heart disease with heart failure; I48.91 Unspecified atrial fibrillation; I50.9 Heart failure, unspecified; K76.9 Liver disease, unspecified; M43.12 Spondylolisthesis, cervical region; E78.00 Pure hypercholesterolemia, unspecified; W19.XXXA Unspecified fall, initial encounter; R29.6 Repeated falls; Z79.01 Long term (current) use of anticoagulants; Z85.820 Personal history of malignant melanoma of skin; Z87.891 Personal history of nicotine dependence; Z91.81 History of falling; Y92.002 Bathroom of unspecified non-institutional (private) residence as the place of occurrence of the external cause

== ENCOUNTER 2018-09-05 12:51 | Emergency (ER) | payer MEDICARE, MEDICAID ==
[2018-09-05 12:51] VITALS: PULSE 90
[2018-09-05 12:58] VITALS: BMI 38.4
--- NOTE | 2018-09-05 13:58 | C.PDOC ---
History Of Present Illness 67 y/o male presents to the ED requesting staple removal from healing laceration. States he was seen about 1 week ago and had chi placed to his posterior scalp. Patient additionally complains that a wound to his left heel "burst" causing his sock to become wet. He is requesting wound care, states he is diabetic and does not want to lose his foot. 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 Patient notes the wounds have been present for the last 2 months. He denies any new pain, swelling, fever, chills, or worsening redness or discharge from site. Also patient mentions he is anemic and was told his anemia is contributory to wound conditions. Time Seen by Provider: 09/05/18 13:08 Chief Complaint (Nursing): Wound Check History Per: Patient History/Exam Limitations: no limitations Onset/Duration Of Symptoms: Days Ago (7) Current Symptoms Are (Timing): Still Present Past Medical History Reviewed: Historical Data, Nursing Documentation, Vital Signs - Medical History PMH: Anemia, Atrial Fibrillation, Diabetes, Hepatitis, HTN, Hypercholesterolemia Denies: Deep Vein Thrombosis, HIV, Chronic Kidney Disease, Seizures, Sexually Transmitted Disease Comment Only: CHF (A-fib) Surgical History: Denies: Pacemaker - [facility] Procedures DETOXIFICATION SERVICES FOR SUBSTANCE ABUSE TREATMENT (06/04/17) DRUG DETOXIFICATION (03/15/15) INDIV PSYCHOTHERAPY FOR SUBSTANCE ABUSE TREATMENT, SUPPORT (06/04/17) INDIV PSYCHOTHERAPY FOR SUBSTANCE ABUSE, COGNITIV BEHAVIORAL (06/04/17) INSERTION OF INFUSION DEV INTO L BASILIC VEIN, PERC APPROACH (08/30/18) MEDS MGMT FOR SUBSTANCE ABUSE TREATMENT, METHADONE MAINT (07/06/18) TETANUS TOXOID ADMINIST (04/19/15) TRANSFUSE NONAUT RED BLOOD CELLS IN PERIPH VEIN, PERC (08/30/18) ULTRASONOGRAPHY OF LEFT UPPER EXTREMITY VEINS, GUIDANCE (08/30/18) Family History: States: Unknown Family Hx - Social History Hx Tobacco Use: No Hx Alcohol Use: No Hx Substance Use: Yes (heroin) - Immunization History Hx Tetanus Toxoid Vaccination: No (7-8 yrs ago) Hx Influenza Vaccination: Yes Hx Pneumococcal Vaccination: Yes Review Of Systems Constitutional: Negative for: Fever, Chills Cardiovascular: Negative for: Chest Pain Respiratory: Negative for: Shortness of Breath Skin: Positive for: Lesions (healing laceration to scalp), Other (chronic wounds to bilateral lower extremities, no pus draining) Neurological: Negative for: Weakness, Numbness, Headache, Dizziness Physical Exam - Physical Exam Additional Physical Exam Comments: Constitutional: No acute distress. Head: Normocephalic. Dry healing laceration to left parietal scalp, chi intact. Eyes: PERRL. ENT: Moist mucous membranes. Neck: Supple. Cardiovascular: Regular rate. Radial pulse 2+ bilaterally. Chest: No tenderness. Respiratory: Clear to auscultation bilaterally. GI: Soft. Nontender. Nondistended. Back: No CVA tenderness. Musculoskeletal: No tenderness of extremities. Skin: Multiple ulcerations to the bilateral toes, heels, and anterior shins. No over cellulitis or purulent discharge. Neurologic: Alert, no focal deficit. ED Course And Treatment - Laboratory Results Result Diagrams: 09/05/18 14:32 09/05/18 14:32 - Other Rad CXR X-Ray: Read By Radiologist Interpretation: FINDINGS: LUNGS: The lungs are well inflated and clear. PLEURA: No pleural effusions or pneumothorax. CARDIOVASCULAR: There is moderate cardiomegaly. No aortic atherosclerotic calcifications present. OSSEOUS STRUCTURES: Within normal limits for the patient's age. VISUALIZED U PPER ABDOMEN: Normal. OTHER FINDINGS: None. IMPRESSION: No acute findings. Medical Decision Making Medical Decision Making: Plan: - CK-MB - CMP - CPK - Trop - CBC - PTT/PT - EKG - Chest x-ray - Blood type/screen EKG: A Fib @ 76 bpm, No ST elevations 4 chi removed. CXR shows no acute disease. Podiatry resident dressed wounds, cultured, ceftriaxone x 1, keflex at discharge, f/u podiatry clinic, no overt infection at this time. Disposition - Disposition Referrals: Podiatry Clinic [Outside] Disposition: HOME/ ROUTINE Disposition Time: 15:50 Condition: STABLE Prescriptions: Cephalexin [Keflex] 500 mg PO Q8H #21 capsule Instructions: Staple Removal, Diabetic Foot Ulcer (DC) Forms: [employer] (Slovenian) - Clinical Impression Clinical Impression: Removal of staple, Foot ulcer - Scribe Statement The provider has reviewed the documentation as recorded by the Heber Erazo Provider Attestation: All medical record entries made by the Terranceibjulio were at my direction and personally dictated by me. I have reviewed the chart and agree that the record accurately reflects my personal performance of the history, physical exam, medical decision making, and the department course for this patient. I have also personally directed, reviewed, and agree with the discharge instructions and disposition.
[2018-09-05 14:36] LABS: BASO % 0.3 % (0.0-2.0); EOS # 0.1 K/uL (0.0-0.7); EOS % 1.7 % (0.0-4.0); LYMPH # 0.6 K/uL (1.0-4.3); LYMPH % 7.2 % (20.0-40.0); MEAN CELL VOLUME 84.4 fL (80.0-94.0); MEAN CORPUSCULAR HEMOGLOBIN 25.7 pg (27.0-31.0); MEAN CORPUSCULAR HGB CONC 30.4 g/dL (33.0-37.0); MEAN PLATELET VOLUME 7.5 fL (7.2-11.7); MONO # 0.7 K/uL (0.0-0.8); MONO % 8.2 % (0.0-10.0); NEUT # 6.9 K/uL (1.8-7.0); NEUT % 82.6 % (50.0-75.0); PLATELET COUNT 338 K/uL (130-400); RED CELL DISTRIBUTION WIDTH 20.8 % (11.5-14.5); WHITE BLOOD COUNT 8.3 K/uL (4.8-10.8)
--- NOTE | 2018-09-05 14:40 | RAD ---
Date of service: 09/05/2018 HISTORY: r/o PNA COMPARISON: 08/28/2018. FINDINGS: LUNGS: The lungs are well inflated and clear. PLEURA: No pleural effusions or pneumothorax. CARDIOVASCULAR: There is moderate cardiomegaly. No aortic atherosclerotic calcifications present. OSSEOUS STRUCTURES: Within normal limits for the patient's age. VISUALIZED UPPER ABDOMEN: Normal. OTHER FINDINGS: None. IMPRESSION: No acute findings.
[2018-09-05 14:44] LABS: INR 2.5; PROTHROMBIN TIME 27.1 SECONDS (9.7-12.2)
[2018-09-05 14:52] LABS: ALBUMIN 3.4 g/dL (3.5-5.0); ALT/SGPT 11 U/L (21-72); AST/SGOT 29 U/L (17-59); BLOOD UREA NITROGEN 16 mg/dL (9-20); CALCIUM 8.2 mg/dl (8.6-10.4); GFR NON-AFRICAN AMERICAN > 60
[2018-09-05 14:58] LABS: ANISOCYTOSIS MODERATE; BANDS 2 % (0-2); EOSINOPHIL 1 % (0-4); HYPOCHROMIC MODERATE; LYMPHOCYTE 8 % (20-40); MONOCYTE 7 % (0-10); NEUTROPHIL 82 % (50-75); PLATELET ESTIMATE NORMAL (NORMAL); TOTAL CELLS COUNTED 100
[2018-09-05 15:00] LABS: OVALOCYTES SLIGHT; POIKILOCYTOSIS SLIGHT
[2018-09-05 15:04] LABS: CK-MB 1.34 ng/mL (0.0-3.38)
[2018-09-05 17:12] VITALS: BP 99/67; PULSE 84; RESP 20; TEMP 99; O2SAT 95
--- NOTE | 2018-09-05 18:09 | CP.PCM.CON ---
History of Present Illness - History of Present Illness History of Present Illness: Consult not e for attending Dr. Fatima; 55 y/o F Patient with PMH of Anemia, Atrial Fibrillation, Diabetes, Diabetic neuropathy, Hepatitis, HTN, Hypercholesterolemia seen ad evaluated in the ED for multiple ruptured blisters, abrasions and swelling in b/l LE. Patient states that he lives on his own and today he had a blister ruptured on the back of his left heel draining a lot of fluid. He states that he noted when he comes to the ED that he has also multiple abrasions in his toes. Patient denies any pain to his b/l LE. He states that he has tingling, numbness and burning sensation in his LE all the times as he has neuropathy. She denies any recent F/N/V/C/C/CP/SOB. PMH: Anemia, Atrial Fibrillation, Diabetes, Diabetic neuropathy, Hepatitis, HTN, Hypercholesterolemia PSH: Melanoma excision in Allergies: NKDA Social history: Denies tobacco and alcohol. Uses heroin Review of Systems - Review of Systems Review of Systems: As per HPI - Constitutional Constitutional: As Per HPI Past Patient History - Infectious Disease Hx of Infectious Diseases: None - Past Medical History & Family History Past Medical History?: Yes - Past Social History Smoking Status: Former Smoker - CARDIAC Hx Atrial Fibrillation: Yes Hx Congestive Heart Failure: (A-fib) Hx Hypercholesterolemia: Yes Hx Hypertension: Yes Hx Pacemaker: No - PULMONARY Hx Respiratory Disorders: No Hx Tuberculosis: No - NEUROLOGICAL Hx Seizures: No - HEENT Hx HEENT Problems: No - RENAL Hx Chronic Kidney Disease: No - ENDOCRINE/METABOLIC Hx Endocrine Disorders: Yes Hx Diabetes Mellitus Type 2: Yes Other/Comment: neuropathy - HEMATOLOGICAL/ONCOLOGICAL Hx Anemia: Yes Hx Human Immunodeficiency Virus (HIV): No - INTEGUMENTARY Hx Dermatological Problems: Yes Hx Melanoma: Yes (Malignant Melonoma removed 1996) - MUSCULOSKELETAL/RHEUMATOLOGICAL Hx Musculoskeletal Disorders: Yes Hx Falls: Yes Other/Comment: walker use - GASTROINTESTINAL Hx Gastrointestinal Disorders: No - GENITOURINARY/GYNECOLOGICAL Hx Sexually Transmitted Disorders: No - PSYCHIATRIC Hx Substance Use: Yes (heroin) - SURGICAL HISTORY Hx Surgeries: Yes Hx Musculoskeletal Surgery: Yes (BILATERAL KNEE, CARPAL TUNNEL) Other/Comment: Umbilical Hernia Repair. B/L Knee Artho,. lymph nodes removeded from jamal axilla - ANESTHESIA Hx Anesthesia: Yes Hx Anesthesia Reactions: No Hx Malignant Hyperthermia: No Meds Home Medications: Home Medication List Medication Instructions Recorded Confirmed Type Cephalexin [Keflex] 500 mg PO Q8H #21 capsule 09/05/18 Rx Allergies/Adverse Reactions: Allergies Allergy/AdvReac Type Severity Reaction Status Date / Time No Known Allergies Allergy Verified 09/05/18 12:58 Physical Exam - Constitutional Appears: Non-toxic, No Acute Distress - Head Exam Head Exam: ATRAUMATIC, NORMOCEPHALIC - Extremities Exam Additional comments: B/L LE Focused exam: Vasc: DP/PT faintly palpable 1/4, Cap refill < 3 sec to all digits, Temp gradient warm to cool from proximal to distal b/l. +1 pitting edema noted b/l extending up to the tibial tuberosity. Neuro: Gross and protective sensations are deminished. Derm: +1 pitting edema noted b/l extending up to the tibial tuberosity. Small ruptured blisters (1 on the right side and 2 on the left side) oozing serous fluid noted on the clement of tibia b/l. B/L ruptured blisters noted in the back of the heel b/l left > right and the plantar aspect of the right hallux oozing serous fluid. Mild erythema noted in the lower 1/3 of the leg b/l. Right leg noted to be dry and scaly. Multiple superficial abrasions noted in the dorsum of the toes covered by dry scab MSK: Muscle power intact 5/5 to all groups. No pain on palpating the blister areas and the abrasion areas b/l. - Neurological Exam Neurological exam: Alert, Oriented x3 Results - Vital Signs Recent Vital Signs: Last Vital Signs Temp 99.0 F 09/05/18 17:11 Pulse 84 09/05/18 17:11 Resp 20 09/05/18 17:11 BP 99/67 L 09/05/18 17:11 Pulse Ox 95 09/05/18 17:11 - Labs Result Diagrams: 09/05/18 14:32 09/05/18 14:32 Labs: Laboratory Results - last 24 hr 09/05/18 09/05/18 09/05/18 13:18 14:32 14:32 WBC 8.3 RBC 3.10 L Hgb 8.0 L Hct 26.2 L MCV 84.4 MCH 25.7 L MCHC 30.4 L RDW 20.8 H Plt Count 338 MPV 7.5 Neut % (Auto) 82.6 H Lymph % (Auto) 7.2 L [place] % (Auto) 8.2 Eos % (Auto) 1.7 Baso % (Auto) 0.3 Neut # (Auto) 6.9 Lymph # (Auto) 0.6 L [place] # (Auto) 0.7 Eos # (Auto) 0.1 Baso # (Auto) 0.0 Neutrophils % (Manual) 82 H Band Neutrophils % 2 Lymphocytes % (Manual) 8 L Monocytes % (Manual) 7 Eosinophils % (Manual) 1 Platelet Estimate Normal Hypochromasia (manual) Moderate Poikilocytosis (manual Slight Anisocytosis (manual) Moderate Ovalocytes Slight PT 27.1 H INR 2.5 APTT 46 H Sodium Potassium Chloride Carbon Dioxide Anion Gap BUN Creatinine Est GFR ( Amer) Est GFR (Non-Af Amer) POC Glucose (mg/dL) 230 H Random Glucose Calcium Total Bilirubin AST ALT Alkaline Phosphatase Total Creatine Kinase CK-MB (Mass) Troponin I Total Protein Albumin Globulin Albumin/Globulin Ratio 09/05/18 14:32 WBC RBC Hgb Hct MCV MCH MCHC RDW Plt Count MPV Neut % (Auto) Lymph % (Auto) [place] % (Auto) Eos % (Auto) Baso % (Auto) Neut # (Auto) Lymph # (Auto) [place] # (Auto) Eos # (Auto) Baso # (Auto) Neutrophils % (Manual) Band Neutrophils % Lymphocytes % (Manual) Monocytes % (Manual) Eosinophils % (Manual) Platelet Estimate Hypochromasia (manual) Poikilocytosis (manual Anisocytosis (manual) Ovalocytes PT INR APTT Sodium 134 Potassium 4.4 Chloride 100 Carbon Dioxide 23 Anion Gap 16 BUN 16 Creatinine 1.1 Est GFR ( Amer) > 60 Est GFR (Non-Af Amer) > 60 POC Glucose (mg/dL) Random Glucose 192 H D Calcium 8.2 L Total Bilirubin 0.5 AST 29 ALT 11 L Alkaline Phosphatase 99 Total Creatine Kinase 34 L CK-MB (Mass) 1.34 Troponin I < 0.0120 Total Protein 6.8 Albumin 3.4 L Globulin 3.4 Albumin/Globulin Ratio 1.0 Assessment & Plan - Assessment and Plan (Free Text) Assessment: 55 y/o F Patient with PMH of Anemia, Atrial Fibrillation, Diabetes, Hepatitis, HTN, Hypercholesterolemia seen ad evaluated in the ED for multiple ruptured blisters, abrasions and swelling in b/l LE. Plan: Patient seen and evaluated in the ED. Plan discussed in details with attending Dr. Fatima. Charts, labs and vitals reviewed: Afebrile, No leukocytosis. Ordered B/L LE venous duplex. B/L LE dressed using betadine, ABD and DSD. Patient instructed to keep the dressing C/D/I. Patient expressed verbal understanding. Discussed with the patient that he needs to follow up in the podiatry clinic to take catre of his wounds. Rx; Keflex 500 mg PO Q8 for 1 week Patient to follow up in the podiatry clinic at [facility]. Thank you for the consult. - Date & Time Date: 09/05/18 Time: 17:51
== END 2018-09-05 17:17 | disposition home or self-care (01) ==
LOC: C.ER 12:51
DX: S90.822A Blister (nonthermal), left foot, initial encounter (principal); S90.821A Blister (nonthermal), right foot, initial encounter; S90.415A Abrasion, left lesser toe(s), initial encounter; S90.414A Abrasion, right lesser toe(s), initial encounter; X58.XXXA Exposure to other specified factors, initial encounter; M79.89 Other specified soft tissue disorders
CPT/HCPCS: 71045; 80053; 82550; 82553; 82948; 84484; 85025; 85610; 85730; 87070; 87181; 96374; 99284; J0696

== ENCOUNTER 2018-09-20 13:49 | Emergency (ER) | payer MEDICARE, MEDICAID ==
[2018-09-20 13:50] VITALS: PULSE 90; BMI 38.4
--- NOTE | 2018-09-20 14:34 | C.PDOC ---
History Of Present Illness 68 year old male presents to the ED via EMS for evaluation of frequent falls. The patient notes living alone at home and cares for himself. He has prior multiple evaluations for falls and head trauma. Pt has denied halfway placement in the past. Gait is unsteady due to obese condition. Notes he eats terribly. Admits he has no cat(s) at home, abuses heroin. Denies abusing other drugs and any other associated symptoms. Offers no other medical complaints at this time. - HPI Time Seen by Provider: 09/20/18 14:13 Chief Complaint (Nursing): Trauma History Per: Patient History/Exam Limitations: no limitations Injury Occurred (Timing): Just Before Arrival Recent travel outside of the [place]: No Past Medical History Reviewed: Historical Data, Nursing Documentation, Vital Signs Vital Signs: Last Vital Signs Temp 97.8 F 09/20/18 14:05 Pulse 103 H 09/20/18 14:05 Resp 19 09/20/18 14:05 BP 147/83 09/20/18 14:05 Pulse Ox 97 09/20/18 14:05 - Medical History PMH: Anemia, Atrial Fibrillation, Diabetes, Hepatitis, HTN, Hypercholesterolemia Denies: Deep Vein Thrombosis, HIV, Chronic Kidney Disease, Seizures, Sexually Transmitted Disease Comment Only: CHF (A-fib) Other PMH: heroine abuse Surgical History: Denies: Pacemaker - [facility] Procedures DETOXIFICATION SERVICES FOR SUBSTANCE ABUSE TREATMENT (06/04/17) DRUG DETOXIFICATION (03/15/15) INDIV PSYCHOTHERAPY FOR SUBSTANCE ABUSE TREATMENT, SUPPORT (06/04/17) INDIV PSYCHOTHERAPY FOR SUBSTANCE ABUSE, COGNITIV BEHAVIORAL (06/04/17) INSERTION OF INFUSION DEV INTO L BASILIC VEIN, PERC APPROACH (08/30/18) MEDS MGMT FOR SUBSTANCE ABUSE TREATMENT, METHADONE MAINT (07/06/18) TETANUS TOXOID ADMINIST (04/19/15) TRANSFUSE NONAUT RED BLOOD CELLS IN PERIPH VEIN, PERC (08/30/18) ULTRASONOGRAPHY OF LEFT UPPER EXTREMITY VEINS, GUIDANCE (08/30/18) Family History: States: Unknown Family Hx - Social History Hx Tobacco Use: No Hx Alcohol Use: No Hx Substance Use: Yes (heroin) - Immunization History Hx Tetanus Toxoid Vaccination: No (7-8 yrs ago) Hx Influenza Vaccination: Yes Hx Pneumococcal Vaccination: Yes Review Of Systems Except As Marked, All Systems Reviewed And Found Negative. Neurological: Positive for: Other (abuses heroin. ) Physical Exam - Physical Exam Appears: Non-toxic, No Acute Distress, Other (tearful, melancholy, dramatic.) Skin: Warm, Dry, Other ((+) contusions and abrasions to upper and lower ex tremities at various stages of repair. (+) dorsum of 10 toes have crusting and blood with foul smell. (+) decubitus ulcers on bilateral heals left > right.) Head: Atraumatic, Normacephalic Eye(s): bilateral: Normal Inspection Oral Mucosa: Moist Neck: Normal ROM, Supple Chest: Symmetrical, No Deformity Cardiovascular: Rhythm Regular, No Murmur Respiratory: Normal Breath Sounds, No Rales, No Rhonchi, No Wheezing Gastrointestinal/Abdominal: Normal Exam, Soft, Other (obese. ) Extremity: Bilateral: Atraumatic, Normal Color And Temperature, Normal ROM Neurological/Psych: Oriented x3, Normal Speech, Normal Cognition, Normal Motor, Normal Sensation ED Course And Treatment - Laboratory Results Lab Interpretation: Abnormal (tox+opiates) O2 Sat by Pulse Oximetry: 97 (RA) Pulse Ox Interpretation: Normal - Other Rad CXR X-Ray: Viewed By Me, Read By Radiologist Interpretation: IMPRESSION: The central pulmonary vasculature is slightly increased which may be secondary to semi-erect patient positioning. Developing pulmonary venous congestion not excluded - CT Scan/US Head CT Other Rad Studies (CT/US): Read By Radiologist CT/US Interpretation: IMPRESSION: Right parietal soft tissue swelling. No calvarial fracture. No acute intracranial pathology. Age-related changes. No significant interval change. Reevaluation Time: 15:56 Reassessment Condition: Improved Medical Decision Making Medical Decision Making: Initial plan: -CT Head w/o contrast -EKG -Portable CXR -Blood sent. -Urinalysis Progress/Update: Labs: Baseline of chronic anemia hemoglobin of 8. extensive d/w pt about poor eating and hygiene habits, unstable gait, frequent falls and head injuries Pt claims to be too anxious to stay inpatient- that after 2-3 days inpatient the anxiety is unbearable for him. Offere and declined anxiety meds. explained risks/benefits of staying inpatient, with Rn witnesses, pt verbalized understanding and wants AMA d/c AMA paperwork completed and signed by pt pt instructed to f/u with Dr. Andrew Forrest- PMD- as opt. Verbalized understanding how to call and make appt as info given on d/c instructions pt claims to have cat and a small corgie (small dog) @ home to care for. Denies substance abuse, but pt known to abuse heroine @ home which may explain his reluctance to stay inpatient and why pt so agitated soon after arrival in ED. increased risks of sleep apnea and hypoxia @ home with concomitant narcotics abuse tox + opiates Consider CPAP Disposition Doctor Will See Patient In The: Office Counseled Patient/Family Regarding: Studies Performed, Diagnosis - Disposition Referrals: Kayley Forrest MD [Staff Provider] - Disposition: AGAINST MEDICAL ADVICE Disposition Time: 16:00 Condition: GOOD Additional Instructions: walking assistance @ home. Call Dr. Andrew Forrest for outpatient follow-up Diabetic diet Return to ED for further eval and to consider inpatient subacute rehab for gait retraining to help avoid more/further/future falls. Instructions: Preventing Falls in the Older Adult, Minor Head Injury, Getting Up From a Fall Forms: [employer] (Ukrainian) - Clinical Impression Clinical Impression: Contusion of head, Frequent falls, Chronic wound of extremity - Scribe Statement The provider has reviewed the documentation as recorded by the Scribe (Rachel Crump) Provider Attestation: All medical record entries made by the Scribe were at my direction and personally dictated by me. I have reviewed the chart and agree that the record accurately reflects my personal performance of the history, physical exam, medical decision making, and the department course for this patient. I have also personally directed, reviewed, and agree with the discharge instructions and disposition.
--- NOTE | 2018-09-20 15:55 | CT ---
Date of service: 09/20/2018 PROCEDURE: CT HEAD WITHOUT CONTRAST. HISTORY: falls, occ contusion 4 days ago COMPARISON: CT head dated 08/28/2018 TECHNIQUE: Axial computed tomography images were obtained through the head/brain without intravenous contrast. Radiation dose: Total exam DLP = 1363.96 mGy-cm. This CT exam was performed using one or more of the following dose reduction techniques: Automated exposure control, adjustment of the mA and/or kV according to patient size, and/or use of iterative reconstruction technique. FINDINGS: HEMORRHAGE: No intracranial hemorrhage. BRAIN: No mass effect or edema. No atrophy or chronic microvascular ischemic changes. VENTRICLES: Unremarkable. No hydrocephalus. CALVARIUM: Unremarkable. PARANASAL SINUSES: Unremarkable as visualized. No significant inflammatory changes. MASTOID AIR CELLS: Unremarkable as visualized. No inflammatory changes. OTHER FINDINGS: High right parietal soft tissue swelling. IMPRESSION: Right parietal soft tissue swelling. No calvarial fracture. No acute intracranial pathology. Age-related changes. No significant interval change.
--- NOTE | 2018-09-20 16:00 | RAD ---
Date of service: 09/20/2018 HISTORY: Code Stroke COMPARISON: Comparison chest 09/05/2018 FINDINGS: LUNGS: The central pulmonary vasculature is slightly increased which may be secondary to semi-erect patient positioning. Developing pulmonary venous congestion not excluded PLEURA: No significant pleural effusion identified, no pneumothorax apparent. CARDIOVASCULAR: No aortic atherosclerotic calcification present. Cardiomegaly. No pulmonary vascular congestion. OSSEOUS STRUCTURES: No significant abnormalities. VISUALIZED UPPER ABDOMEN: Normal. OTHER FINDINGS: Metallic clips noted in the left axillary region IMPRESSION: The central pulmonary vasculature is slightly increased which may be secondary to semi-erect patient positioning. Developing pulmonary venous congestion not excluded
[2018-09-20 16:07] LABS: URINE BILIRUBIN NEGATIVE (NEGATIVE); URINE BLOOD 1+ (NEGATIVE); URINE CLARITY Clear (Clear); URINE COLOR Yellow (YELLOW); URINE GLUCOSE (UA) NORMAL (Normal); URINE LEUKOCYTE ESTERASE NEG Leu/uL (Negative); URINE PROTEIN 1+ mg/dL (NEGATIVE); URINE UROBILINOGEN NORMAL mg/dL (0.2-1.0)
[2018-09-20 16:20] VITALS: BP 150/80; PULSE 96; RESP 18; TEMP 98.1
[2018-09-20 16:26] LABS: BARBITURATES, UR NEGATIVE (NEGATIVE); BENZODIAZEPINES, UR NEGATIVE (NEGATIVE); PHENCYCLIDINE, UR NEGATIVE (NEGATIVE)
[2018-09-20 16:30] LABS: OPIATES, UR POSITIVE (NEGATIVE)
[2018-09-20 18:30] VITALS: O2SAT 97
== END 2018-09-20 16:18 | disposition left against medical advice (07) ==
LOC: C.ER 13:49
DX: S00.93XA Contusion of unspecified part of head, initial encounter (principal); W19.XXXA Unspecified fall, initial encounter; L89.629 Pressure ulcer of left heel, unspecified stage; R29.6 Repeated falls
CPT/HCPCS: 70450; 71045; 81001; 82948; 99285; G0480

== ENCOUNTER 2018-09-21 00:22 | Emergency (ER) | payer MEDICARE, MEDICAID ==
[2018-09-21 00:23] VITALS: PULSE 90; BMI 38.4
--- NOTE | 2018-09-21 00:48 | C.PDOC ---
History Of Present Illness 68 year old male with PMHx of NARCOTIC ABUSE, Anemia, Atrial Fibrillation, Diabetes, Diabetic neuropathy, Hepatitis, HTN, Hypercholesterolemia is brought to the ED by EMS. EMS is demanding patient to be admitted socially because " We do not want to keep picking him up". Patient was seen in the ED earlier this afternoon and evaluated for multiple falls. Patient was evaluated by PMD, had scans done and lab work, patient ultimately decided to leave AMA. Patient refused to be admitted became verbally abusive towards staff. Patient presents again for same. PMH of NARCOTIC ABUSE, Anemia, Atrial Fibrillation, Diabetes, Diabetic neuropathy, Hepatitis, HTN, Hypercholesterolemia Time Seen by Provider: 09/21/18 00:47 Chief Complaint (Nursing): Medical Clearance History Per: Patient, EMS History/Exam Limitations: no limitations Onset/Duration Of Symptoms: Days Current Symptoms Are (Timing): Still Present Reports Recently: Seen In ED (09/20/2018) Recent travel outside of the [place]: No Additional History Per: Patient Past Medical History Reviewed: Historical Data, Nursing Documentation, Vital Signs Vital Signs: Last Vital Signs Temp 98.4 F 09/21/18 00:30 Pulse 118 H 09/21/18 00:30 Resp 18 09/21/18 00:30 BP 98/59 L 09/21/18 00:30 Pulse Ox 97 09/21/18 00:30 - Medical History PMH: Anemia, Atrial Fibrillation, Diabetes, Hepatitis, HTN, Hypercholesterolemia Denies: Deep Vein Thrombosis, HIV, Chronic Kidney Disease, Seizures, Sexually Transmitted Disease Comment Only: CHF (A-fib) Surgical History: No Surg Hx Denies: Pacemaker - [facility] Procedures DETOXIFICATION SERVICES FOR SUBSTANCE ABUSE TREATMENT (06/04/17) DRUG DETOXIFICATION (03/15/15) INDIV PSYCHOTHERAPY FOR SUBSTANCE ABUSE TREATMENT, SUPPORT (06/04/17) INDIV PSYCHOTHERAPY FOR SUBSTANCE ABUSE, COGNITIV BEHAVIORAL (06/04/17) INSERTION OF INFUSION DEV INTO L BASILIC VEIN, PERC APPROACH (08/30/18) MEDS MGMT FOR SUBSTANCE ABUSE TREATMENT, METHADONE MAINT (07/06/18) TETANUS TOXOID ADMINIST (04/19/15) TRANSFUSE NONAUT RED BLOOD CELLS IN PERIPH VEIN, PERC (08/30/18) ULTRASONOGRAPHY OF LEFT UPPER EXTREMITY VEINS, GUIDANCE (08/30/18) Family History: States: Unknown Family Hx - Social History Hx Tobacco Use: No Hx Alcohol Use: Yes Hx Substance Use: Yes - Immunization History Hx Tetanus Toxoid Vaccination: No (7-8 yrs ago) Hx Influenza Vaccination: Yes Hx Pneumococcal Vaccination: Yes Review Of Systems Constitutional: Negative for: Fever, Chills Eyes: Negative for: Vision Change Cardiovascular: Negative for: Chest Pain Respiratory: Negative for: Cough, Shortness of Breath Gastrointestinal: Negative for: Nausea, Vomiting, Abdominal Pain Skin: Negative for: Rash Neurological: Positive for: Headache. Negative for: Weakness, Numbness, Dizziness Physical Exam - Physical Exam Appears: Non-toxic, No Acute Distress Skin: Normal Color, Warm, Dry, Other (contusions and abrasions to upper and lower extremities) Head: Atraumatic, Normacephalic Eye(s): bilateral: Normal Inspection Oral Mucosa: Moist Neck: Normal ROM, Supple Chest: Symmetrical Cardiovascular: Rhythm Regular Respiratory: Normal Breath Sounds, No Rales, No Rhonchi, No Wheezing Gastrointestinal/Abdominal: Soft, No Tenderness, No Guarding, No Rebound, Other (obese) Extremity: Normal ROM, No Tenderness, Capillary Refill (< 2 seconds), No Swelling, Other (dorsum of toes crusting and blodd with foul smeel, decubitus ulcers on bilateral heals left > right) Pulses: Left Dorsalis Pedis: Normal, Right Dorsalis Pedis: Normal Neurological/Psych: Oriented x3, Normal Speech, Normal Cognition, Normal Motor, Normal Sensation, Other (no acute intoxication) Gait: Steady ED Course And Treatment O2 Sat by Pulse Oximetry: 97 (ON RA) Pulse Ox Interpretation: Normal Against Medical Advice - AMA Patient Left Against Medical Advice: The patient declines admission to the hospital and wishes to leave the Emergency Department. This action is against my medical advice. This decision was made with informed refusal. The patient was told that admission to the hospital is necessary. Explanation of the reasons why were discussed. The risks of leaving were explained to the patient and include, but are not limited to, worsening of known or currently unknown conditions, permanent disability and from undiagnosed or untreated conditions. The patient has the capacity to make this informed decision and understands my explanation of the current medical problem and risks of leaving. The patient voluntarily accepts these risks and signed an AMA form documenting our conversation. The patient was given the opportunity to ask questions and reconsider. The patient was encouraged to return to the Emergency Department at any time for further care. Progress - Re-Evaluation Re-evaluation Note: 09/21/18 01:07 PT CONTINUES TO REFUSE ADMISSION, WISHES IMMEDIATE DISCHARGE. The patient declines admission to the hospital and wishes to leave the Emergency Department. This action is against my medical advice. This decision was made with informed refusal. The patient was told that admission to the hospital is necessary. Explanation of the reasons why were discussed. The risks of leaving were explained to the patient and include, but are not limited to, worsening of known or currently unknown conditions, permanent disability and from undiagnosed or untreated conditions. The patient has the capacity to make this informed decision and understands my explanation of the current medical problem and risks of leaving. The patient voluntarily accepts these risks and signed an AMA form documenting our conversation. The patient was given the opportunity to ask questions and reconsider. The pa tient was encouraged to return to the Emergency Department at any time for further care. - Data Reviewed Data Reviewed: Old records Medical Decision Making Medical Decision Making: Patient refused admission leaves AMA Disposition Counseled Patient/Family Regarding: Diagnosis, Need For Followup - Disposition Referrals: Kayley Forrest MD [Staff Provider] - Disposition: AGAINST MEDICAL ADVICE Disposition Time: 01:04 Condition: GOOD Instructions: Wound Care (DC), Contusion (DC) Forms: [employer] (Estonian) - Clinical Impression Clinical Impression: Opiate addiction, Scalp abrasion - Scribe Statement The provider has reviewed the documentation as recorded by the Scribe Arian Harden All medical record entries made by the Scribe were at my direction and personally dictated by me. I have reviewed the chart and agree that the record accurately reflects my personal performance of the history, physical exam, medical decision making, and the department course for this patient. I have also personally directed, reviewed, and agree with the discharge instructions and disposition.
[2018-09-21 03:08] VITALS: BP 99/54; PULSE 92; RESP 22; TEMP 98; O2SAT 95
== END 2018-09-21 03:09 | disposition left against medical advice (07) ==
LOC: C.ER 00:22
DX: F11.20 Opioid dependence, uncomplicated (principal); S00.01XA Abrasion of scalp, initial encounter; X58.XXXA Exposure to other specified factors, initial encounter; E78.00 Pure hypercholesterolemia, unspecified; I10 Essential (primary) hypertension; I48.91 Unspecified atrial fibrillation; E11.40 Type 2 diabetes mellitus with diabetic neuropathy, unspecified

== ENCOUNTER 2018-09-23 18:25 | Inpatient (IN) | payer MEDICARE, MEDICAID | END 2018-09-26 10:05 | disposition left against medical advice (07) | LOC: C.5S 09-24 09:33 → C.ER 18:25 → C.5S 21:17 ==

== ENCOUNTER 2018-09-29 00:18 | Observation (INO) | payer MEDICARE, MEDICAID ==
[2018-09-29 00:18] VITALS: BMI 38.4
--- NOTE | 2018-09-29 02:37 | C.PDOC ---
History Of Present Illness 68 year old male presents to the ED referred by Dr. Summers for low blood count. Patient was admitted to the Hospital on 09/23/18, recently discharged and instructed to come back on Saturday09/29/2018 for a vascular procedure with Dr. Summers. Patient reports today he received a call from Dr. Summers telling him that his blood count was low and he needed to come to the ED to get his blood count up if he still wanted to have his vascular procedure done. Patient denies any active bleeding, fever, chills, rash, CP, SOB, palpitations, recent injury, fall, trauma. Time Seen by Provider: 09/29/18 00:43 Chief Complaint (Nursing): Back Pain History Per: Patient History/Exam Limitations: no limitations Onset/Duration Of Symptoms: Days Current Symptoms Are (Timing): Still Present Quality Of Discomfort: "Pain" Recent travel outside of the [place]: No Additional History Per: Patient Past Medical History Reviewed: Historical Data, Nursing Documentation, Vital Signs Vital Signs: Last Vital Signs Temp 98.7 F 09/29/18 00:43 Pulse 80 09/29/18 00:43 Resp 20 09/29/18 00:43 BP 121/76 09/29/18 00:43 Pulse Ox 98 09/29/18 00:43 - Medical History PMH: Anemia, Atrial Fibrillation, Diabetes, Hepatitis, HTN, Hypercholesterolemia Denies: Deep Vein Thrombosis, HIV, Chronic Kidney Disease, Seizures, Sexually Transmitted Disease Comment Only: CHF (A-fib) Surgical History: No Surg Hx Denies: Pacemaker - [facility] Procedures DETOXIFICATION SERVICES FOR SUBSTANCE ABUSE TREATMENT (06/04/17) DRUG DETOXIFICATION (03/15/15) INDIV PSYCHOTHERAPY FOR SUBSTANCE ABUSE TREATMENT, SUPPORT (06/04/17) INDIV PSYCHOTHERAPY FOR SUBSTANCE ABUSE, COGNITIV BEHAVIORAL (06/04/17) INSERTION OF INFUSION DEV INTO L BASILIC VEIN, PERC APPROACH (08/30/18) MEDS MGMT FOR SUBSTANCE ABUSE TREATMENT, METHADONE MAINT (07/06/18) TETANUS TOXOID ADMINIST (04/19/15) TRANSFUSE NONAUT RED BLOOD CELLS IN PERIPH VEIN, PERC (08/30/18) ULTRASONOGRAPHY OF LEFT UPPER EXTREMITY VEINS, GUIDANCE (08/30/18) Family History: States: Unknown Family Hx - Social History Hx Tobacco Use: No Hx Alcohol Use: Yes Hx Substance Use: Yes (heroin 10bags/day) - Immunization History Hx Tetanus Toxoid Vaccination: No (7-8 yrs ago) Hx Influenza Vaccination: Yes Hx Pneumococcal Vaccination: Yes Review Of Systems Constitutional: Negative for: Fever, Chills, Weakness Eyes: Negative for: Redness, Other (scleral icterus) ENT: Negative for: Mouth Swelling Cardiovascular: Negative for: Chest Pain Respiratory: Negative for: Cough, Shortness of Breath Gastrointestinal: Negative for: Nausea, Vomiting, Diarrhea Musculoskeletal: Positive for: Leg Pain. Negative for: Back Pain Skin: Negative for: Rash Neurological: Negative for: Weakness, Numbness, Dizziness Physical Exam - Physical Exam Appears: Well, Non-toxic, No Acute Distress Skin: Normal Color, Warm, No Rash Head: Atraumatic, Normacephalic Eye(s): bilateral: Normal Inspection (no scleral icterus), PERRL, EOMI Ear(s): Bilateral: Normal (no drainage) Nose: Normal Oral Mucosa: Moist Throat: Normal, No Erythema, No Exudate, Other (no swelling, injection. Airway patent) Neck: Normal ROM, Supple Chest: Symmetrical Respiratory: No Accessory Muscle Use, Other (normal inspiratory effort) Gastrointestinal/Abdominal: Soft, No Distention Extremity: Pedal Edema (trace), Capillary Refill (< 2 seconds), Other (numerous ecchymosis to bilateral arms at dfferent stages of healing. 2x3 cm pressure ulcer to left heel. Skin breakdown on dorsal aspect of toes. 2.5 cm healing pressure fissure to right medial posterior heel) Pulses: Left Dorsalis Pedis: Normal, Right Dorsalis Pedis: Normal Neurological/Psych: Oriented x3, Normal Speech, Other (cranial nerves grossly intact) Gait: Steady ED Course And Treatment - Laboratory Results Result Diagrams: 09/29/18 02:25 09/29/18 02:09 O2 Sat by Pulse Oximetry: 98 (ON RA) Pulse Ox Interpretation: Normal Medical Decision Making Medical Decision Making: Plan: * RBCs Called Dr. Filippo Forrest to review case with him, Dr. Forrest accepts patient for admission to his service. Spoke with advertising vice president, not aware of procedure. Disposition - Disposition Referrals: Kaylye Forrest MD [Primary Care Provider] - Forms: [employer] ([place]er) - Clinical Impression Clinical Impression: Anemia - PA / HEAD WAITRESS / Resident Statement MD/DO has reviewed & agrees with the documentation as recorded. - Scribe Statement The provider has reviewed the documentation as recorded by the Scribe Arian Harden All medical record entries made by the Terranceibjulio were at my direction and personally dictated by me. I have reviewed the chart and agree that the record accurately reflects my personal performance of the history, physical exam, medical decision making, and the department course for this patient. I have also personally directed, reviewed, and agree with the discharge instructions and disposition. Decision To Admit - Pt Status Changed To: Hospital Disposition Of: Observation - . Bed Request Type: Regular Admitting Physician: Kayley Forrest Patient Diagnosis: Anemia
[2018-09-29 02:38] LABS: ALB/GLOB RATIO 1.2 (1.0-2.1); ALBUMIN 3.9 g/dL (3.5-5.0); ALT/SGPT < 6 U/L (21-72); AST/SGOT 31 U/L (17-59); BLOOD UREA NITROGEN 19 mg/dL (9-20); CALCIUM 8.5 mg/dl (8.6-10.4); GFR NON-AFRICAN AMERICAN 51
[2018-09-29 02:42] LABS: BASO # 0.1 K/uL (0.0-0.2); BASO % 1.4 % (0.0-2.0); EOS # 0.3 K/uL (0.0-0.7); EOS % 4.4 % (0.0-4.0); HEMOGLOBIN 7.5 g/dL (12.0-18.0); MEAN CELL VOLUME 85.3 fL (80.0-94.0); MEAN CORPUSCULAR HEMOGLOBIN 26.5 pg (27.0-31.0); MEAN CORPUSCULAR HGB CONC 31.1 g/dL (33.0-37.0); MEAN PLATELET VOLUME 7.6 fL (7.2-11.7); MONO # 0.7 K/uL (0.0-0.8); NEUT # 3.9 K/uL (1.8-7.0); NEUT % 66.2 % (50.0-75.0); RBC 2.81 Mil/uL (4.40-5.90); RED CELL DISTRIBUTION WIDTH 21.1 % (11.5-14.5); WHITE BLOOD COUNT 5.9 K/uL (4.8-10.8)
[2018-09-29] MEDS ORDERED: Piperacillin/Tazobact 3.375 gm 100 ML IVPB ONE (04:03)
[2018-09-29] MEDS: Piperacillin/Tazobact 3.375 GM in Sodium Chloride 100 ML IVPB SCH ×3 (04:19→20:25)
--- NOTE | 2018-09-29 06:36 | CP.PCM.CON ---
History of Present Illness - History of Present Illness History of Present Illness: Vascular surgery - Dr Summers 68M w/ hx of Afib, rate controlled and on xarelto, DM, Neuropathy, HTN, b/l knee surgery, who was recently admitted with non-healing b/l foot wounds and worked up, found to have PAD. He was discharged and returns today for pre-operative optimization prior to angio. Pt denies any complaints at this time, he does complain of intermittent pain in his legs. He is currently receiving 1U PRBC and will receive a total of 2U prior to procedure. Pt denies any fevers/chills, sob/chest pain/nausea vomiting. Review of Systems - Review of Systems All systems: reviewed and no additional remarkable complaints except (as per HPI) Past Patient History - Infectious Disease Hx of Infectious Diseases: None - Past Medical History & Family History Past Medical History?: Yes - Past Social History Smoking Status: Current Some Days Smoker - CARDIAC Hx Atrial Fibrillation: Yes Hx Congestive Heart Failure: (A-fib) Hx Hypercholesterolemia: Yes Hx Hypertension: Yes Hx Pacemaker: No - PULMONARY Hx Respiratory Disorders: No Hx Tuberculosis: No - NEUROLOGICAL Hx Seizures: No - HEENT Hx HEENT Problems: No - RENAL Hx Chronic Kidney Disease: No - ENDOCRINE/METABOLIC Hx Endocrine Disorders: Yes Hx Diabetes Mellitus Type 2: Yes Other/Comment: neuropathy - HEMATOLOGICAL/ONCOLOGICAL Hx Anemia: Yes Hx Human Immunodeficiency Virus (HIV): No - INTEGUMENTARY Hx Dermatological Problems: Yes Hx Melanoma: Yes (Malignant Melonoma removed 1996) - MUSCULOSKELETAL/RHEUMATOLOGICAL Hx Musculoskeletal Disorders: Yes Hx Falls: Yes Other/Comment: walker use - GASTROINTESTINAL Hx Gastrointestinal Disorders: No - GENITOURINARY/GYNECOLOGICAL Hx Sexually Transmitted Disorders: No - PSYCHIATRIC Hx Substance Use: Yes (heroin 10bags/day) - SURGICAL HISTORY Hx Surgeries: Yes Hx Musculoskeletal Surgery: Yes (BILATERAL KNEE, CARPAL TUNNEL) Other/Comment: Umbilical Hernia Repair. B/L Knee Artho,. lymph nodes removeded from jamal axilla - ANESTHESIA Hx Anesthesia: Yes Hx Anesthesia Reactions: No Hx Malignant Hyperthermia: No Meds Allergies/Adverse Reactions: Allergies Allergy/AdvReac Type Severity Reaction Status Date / Time No Known Allergies Allergy Verified 09/21/18 00:32 - Medications Medications: Current Medications Piperacillin Sod/Tazobactam (Sod 3.375 gm/ Sodium Chloride) 100 mls @ 200 ml s/hr IVPB Q8H [facility]; Protocol Last Admin: 09/29/18 04:19 Dose: 200 mls/hr Pantoprazole Sodium (Protonix Inj) 40 mg IVP DAILY [facility] Physical Exam - Constitutional Appears: Well, No Acute Distress - Head Exam Head Exam: ATRAUMATIC, NORMAL INSPECTION, NORMOCEPHALIC - Respiratory Exam Respiratory Exam: NORMAL BREATHING PATTERN - Neurological Exam Neurological exam: Alert, Oriented x3 - Psychiatric Exam Psychiatric exam: Normal Affect, Normal Mood - Skin Skin Exam: Dry, Intact Additional comments: palpable DP pulses b/l Results - Vital Signs Recent Vital Signs: Last Vital Signs Temp 98.2 F 09/29/18 06:11 Pulse 92 H 09/29/18 06:11 Resp 18 09/29/18 06:11 BP 120/73 09/29/18 06:11 Pulse Ox 96 09/29/18 04:40 - Labs Result Diagrams: 09/29/18 02:25 09/29/18 02:09 Labs: Laboratory Results - last 24 hr 09/29/18 09/29/18 09/29/18 02:09 02:25 03:53 WBC 5.9 RBC 2.81 L Hgb 7.5 L Hct 24.0 L MCV 85.3 MCH 26.5 L MCHC 31.1 L RDW 21.1 H Plt Count 244 MPV 7.6 Neut % (Auto) 66.2 Lymph % (Auto) 16.0 L [place] % (Auto) 12.0 H Eos % (Auto) 4.4 H Baso % (Auto) 1.4 Neut # (Auto) 3.9 Lymph # (Auto) 1.0 [place] # (Auto) 0.7 Eos # (Auto) 0.3 Baso # (Auto) 0.1 Sodium 137 Potassium 5.2 Chloride 105 Carbon Dioxide 22 Anion Gap 15 BUN 19 Creatinine 1.4 Est GFR ( Amer) > 60 Est GFR (Non-Af Amer) 51 Random Glucose 103 D Calcium 8.5 L Total Bilirubin 0.4 AST 31 ALT < 6 L D Alkaline Phosphatase 117 Total Protein 7.3 Albumin 3.9 Globulin 3.4 Albumin/Globulin Ratio 1.2 Blood Type O POSITIVE Antibody Screen Negative Assessment & Plan - Assessment and Plan (Free Text) Assessment: 68 M w/ b/l heel ulcers, PAD -2U PRBC transfusion -F/U Medical/Cardiac optimization/clearance -F/U post-transfusion CBC -Maintain NPO for now -Angio today or tomorrow pending above Kennedy Summers
--- NOTE | 2018-09-29 08:01 | CP.PCM.PN ---
Subjective - Date & Time of Evaluation Date of Evaluation: 09/29/18 Time of Evaluation: 08:01 - Subjective Subjective: Medicine Progress Note - Dr Nico Forrest's Service Patient is a 68 year old male with past medical history of diabetes mellitus, hypertension, atrial fibrillation who was sent to the emergency department for low hemoglobin. Patient is currently undergoing vascular workup for non-healing ulcers. He states that he has been falling 2-3 times per week for the past few months. He describes falls as his feet giving out on him. He also reports having occasional lightheadedness. Patient denies any blood in stools or blood in the urine. His last colonoscopy was in 2015 and he states that it was normal. Patient reports that he snorts and injects 10 bags of heroin daily for over 10 years. Last use was prior to admission. Offers no other complaints at this time Allergies: NKDA Medications: See MAR Medical History: Diabetes Mellitus, atrial fibrillation, hypertension Surgical History: Melanoma removal from scapula, umbilical hernia repair, bilateral knee replacements, Social History: Drinks alcohol occasionally, uses heroin, denies tobacco use Family History: Denies Objective - Vital Signs/Intake and Output Vital Signs (last 24 hours): Temp Pulse Resp BP Pulse Ox 98.6 F 90 18 127/74 96 09/29/18 06:41 09/29/18 06:41 09/29/18 06:41 09/29/18 06:41 09/29/18 04:40 Intake and Output: 09/29/18 09/29/18 06:59 18:59 Intake Total 0 Balance 0 - Medications Medications: Current Medications Piperacillin Sod/Tazobactam (Sod 3.375 gm/ Sodium Chloride) 100 mls @ 200 mls/hr IVPB Q8H [facility]; Protocol Last Admin: 09/29/18 04:19 Dose: 200 mls/hr Pantoprazole Sodium (Protonix Inj) 40 mg IVP DAILY [facility] - Labs Labs: 09/29/18 02:25 09/29/18 02:09 - Constitutional Appears: Non-toxic, No Acute Distress - Head Exam Head Exam: NORMAL INSPECTION - Eye Exam Eye Exam: EOMI, Normal appearance - ENT Exam ENT Exam: Mucous Membranes Moist - Respiratory Exam Respiratory Exam: Clear to Ausculation Bilateral, NORMAL BREATHING PATTERN. absent: Rales, Rhonchi, Wheezes - Cardiovascular Exam Cardiovascular Exam: REGULAR RHYTHM, +S1, +S2 - GI/Abdominal Exam GI & Abdominal Exam: Soft. absent: Guarding, Rigid, Tenderness - Extremities Exam Additional comments: Venous stasis skin changes bilaterally, pedal pulses palpable, +heel ulcers bilaterally - Neurological Exam Neurological Exam: Alert, Awake, Oriented x3 - Psychiatric Exam Psychiatric exam: Normal Affect, Normal Mood - Skin Skin Exam: Dry Additional comments: Multiple excoriations on both arms Assessment and Plan - Assessment and Plan (Free Text) Assessment: Peripheral Arterial Disease, with bilateral non-healing heel wounds -On Zosyn 3.375mg Q8H IVPB -Crestor 20mg PO HS -Vascular surgery on consult for possible angiogram tomorrow -Cardiology on consult for clearance Diabetes Mellitus -Low dose insulin sliding scale and accuchecks ACHS Hypertension -Lisinopril 40mg PO daily Afib, rate controlled -On Xarelto at home (held in light of possible surgical intervention) -Continue Cardizem, Digoxin and amiodarone -Cardiology on consult, help appreciated Normocytic Anemia -Likely due to iron deficiency -Hemoglobin 7.5 on admission -S/P 2 units of PRBCs, started on ferrlecit 125mg IVPB x 2 doses -F/U post transfusion CBC -Stool occult x 2 ordered -GI on consult, Dr España, help appreciated Substance abuse -Patient admits to snorting/injecting 10 bags of heroin daily -Started on Clonidine 0.1mg PO TID, ativan 0.5mg Q12H prn -Continue to monitor Frequent falls -Neurology on consult, Dr Shearer, help appreciated -CT head 09/25: Discrete subcortical infarct right posterior temporoparietal watershed zone. Minor chronic periventricular white matter ischemic changes with a few scattered more discrete deep and subcortical. Note that a small hyperacute infarct cannot be excluded on this study. Consider follow-up MRI if further evaluation is required. [id number] generalized volume loss (see full report) Vitamin B12 deficiency -Started on Vitamin B12 supplementation Plan discussed with Dr Nico Schuster DO PGY-2
--- NOTE | 2018-09-29 08:56 | CP.PCM.PN ---
Subjective - Date & Time of Evaluation Date of Evaluation: 09/29/18 Time of Evaluation: 08:55 - Subjective Subjective: will plan angio for am saturday if "cleared.: Objective - Vital Signs/Intake and Output Vital Signs (last 24 hours): Temp Pulse Resp BP Pulse Ox 98.3 F 101 H 14 146/88 96 09/29/18 08:39 09/29/18 08:39 09/29/18 08:39 09/29/18 08:39 09/29/18 04:40 Intake and Output: 09/29/18 09/29/18 06:59 18:59 Intake Total 0 325 Balance 0 325 - Medications Medications: Current Medications Piperacillin Sod/Tazobactam (Sod 3.375 gm/ Sodium Chloride) 100 mls @ 200 mls/hr IVPB Q8H [facility]; Protocol Last Admin: 09/29/18 04:19 Dose: 200 mls/hr Pantoprazole Sodium (Protonix Inj) 40 mg IVP DAILY [facility] - Labs Labs: 09/29/18 02:25 09/29/18 02:09
[2018-09-29] MEDS ORDERED: Ferric Sodium Gluconat Complex 62.5 mg/5 ml Vial IVPB SCH (16:00)
[2018-09-29 16:51] VITALS: RESP 20
[2018-09-29 17:37] VITALS: PULSE 90
[2018-09-29] MEDS: (Novolog) Insulin Aspart, Recombinant 100 u/ml 10 ml vial SC SCH ×2 (17:39→21:35)
[2018-09-29] MEDS ORDERED: Digoxin 125 mcg (0.125 mg) Tab PO SCH (18:00)
--- NOTE | 2018-09-29 20:33 | CP.PCM.HP ---
Past Patient History - Infectious Disease Hx of Infectious Diseases: None - Past Medical History & Family History Past Medical History?: Yes - Past Social History Smoking Status: Current Some Days Smoker - CARDIAC Hx Hypercholesterolemia: Yes Hx Hypertension: Yes - PULMONARY Hx Respiratory Disorders: No Hx Tuberculosis: No - NEUROLOGICAL Hx Seizures: No - HEENT Hx HEENT Problems: No - RENAL Hx Chronic Kidney Disease: No - ENDOCRINE/METABOLIC Hx Endocrine Disorders: Yes Hx Diabetes Mellitus Type 2: Yes Other/Comment: neuropathy - HEMATOLOGICAL/ONCOLOGICAL Hx Anemia: Yes Hx Human Immunodeficiency Virus (HIV): No - INTEGUMENTARY Hx Dermatological Problems: Yes Hx Melanoma: Yes (Malignant Melonoma removed 1996) - MUSCULOSKELETAL/RHEUMATOLOGICAL Hx Musculoskeletal Disorders: Yes Hx Falls: Yes Other/Comment: walker use - GASTROINTESTINAL Hx Gastrointestinal Disorders: No - GENITOURINARY/GYNECOLOGICAL Hx Sexually Transmitted Disorders: No - PSYCHIATRIC Hx Substance Use: Yes (heroin 10bags/day) - SURGICAL HISTORY Hx Surgeries: Yes Hx Musculoskeletal Surgery: Yes (BILATERAL KNEE, CARPAL TUNNEL) Other/Comment: Umbilical Hernia Repair. B/L Knee Artho,. lymph nodes removeded from jamal axilla - ANESTHESIA Hx Anesthesia: Yes Hx Anesthesia Reactions: No Hx Malignant Hyperthermia: No Meds Allergies/Adverse Reactions: Allergies Allergy/AdvReac Type Severity Reaction Status Date / Time No Known Allergies Allergy Verified 09/21/18 00:32 Physical Exam - Constitutional Appears: Well - Head Exam Head Exam: ATRAUMATIC, NORMAL INSPECTION, NORMOCEPHALIC - Eye Exam Eye Exam: EOMI, Normal appearance, PERRL Pupil Exam: NORMAL ACCOMODATION, PERRL - ENT Exam ENT Exam: Mucous Membranes Moist, Normal Exam - Neck Exam Neck exam: Positive for: Normal Inspection - Respiratory Exam Respiratory Exam: Decreased Breath Sounds - Cardiovascular Exam Cardiovascular Exam: REGULAR RHYTHM, +S1, +S2 - GI/Abdominal Exam GI & Abdominal Exam: Diminished Bowel Sounds, Soft - Rectal Exam Rectal Exam: Deferred Results - Vital Signs Recent Vital Signs: Last Vital Signs Temp 98.6 F 09/29/18 15:31 Pulse 90 09/29/18 15:31 Resp 20 09/29/18 15:31 BP 129/89 09/29/18 15:31 Pulse Ox 96 09/29/18 15:31 - Labs Result Diagrams: 09/29/18 02:25 09/29/18 02:09 Labs: Laboratory Results - last 24 hr 09/29/18 09/29/18 09/29/18 02:09 02:25 03:53 WBC 5.9 RBC 2.81 L Hgb 7.5 L Hct 24.0 L MCV 85.3 MCH 26.5 L MCHC 31.1 L RDW 21.1 H Plt Count 244 MPV 7.6 Neut % (Auto) 66.2 Lymph % (Auto) 16.0 L [place] % (Auto) 12.0 H Eos % (Auto) 4.4 H Baso % (Auto) 1.4 Neut # (Auto) 3.9 Lymph # (Auto) 1.0 [place] # (Auto) 0.7 Eos # (Auto) 0.3 Baso # (Auto) 0.1 Sodium 137 Potassium 5.2 Chloride 105 Carbon Dioxide 22 Anion Gap 15 BUN 19 Creatinine 1.4 Est GFR ( Amer) > 60 Est GFR (Non-Af Amer) 51 Random Glucose 103 D Calcium 8.5 L Total Bilirubin 0.4 AST 31 ALT < 6 L D Alkaline Phosphatase 117 Total Protein 7.3 Albumin 3.9 Globulin 3.4 Albumin/Globulin Ratio 1.2 Blood Type O POSITIVE Antibody Screen Negative
[2018-09-30] MEDS: Piperacillin/Tazobact 3.375 GM in Sodium Chloride 100 ML IVPB SCH (03:46)
[2018-09-30 06:23] LABS: URINE BILIRUBIN NEGATIVE (NEGATIVE); URINE BLOOD 1+ (NEGATIVE); URINE CLARITY Clear (Clear); URINE COLOR Straw (YELLOW); URINE GLUCOSE (UA) NORMAL (Normal); URINE LEUKOCYTE ESTERASE NEG Leu/uL (Negative); URINE PROTEIN NEGATIVE (NEGATIVE); URINE UROBILINOGEN NORMAL mg/dL (0.2-1.0)
--- NOTE | 2018-09-30 07:07 | CON ---
DATE: 09/29/2018 CHIEF COMPLAINT: Frequent falls. 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 Summers. He has intermittent pain in his legs, which could be secondary to his peripheral arterial disease as well as sensory motor diabetic peripheral neuropathy. He does have the evidence of peripheral neuropathy under examination on balance which can lead to frequent falls. PAST MEDICAL HISTORY: As above. SOCIAL HISTORY: No illicit drug abuse, smoking, or ETOH abuse. FAMILY HISTORY: Noncontributory. MEDICATIONS: Reviewed by nurse, per reconciliation sheet. ALLERGIES: NO KNOWN DRUG ALLERGIES. REVIEW OF SYSTEMS: A 14-point review of system is negative except for the HPI. LABORATORY DATA: Sodium 137, potassium 5.2, chloride 105, carbon dioxide 22, BUN of 19, creatinine 1.4, and random glucose 103. PHYSICAL EXAMINATION: VITAL SIGNS: Temperature 99, pulse rate of 95, blood pressure 136/87, and respiratory rate of 14. GENERAL: The patient is obese . HEENT: Atraumatic and normocephalic, PERRLA. Extraocular muscles intact. NECK: Supple, no JVD and no adenopathy noted. LUNGS: Decreased breath sounds bilaterally. HEART: S1 and S2, normal rate and rhythm, no murmurs, rubs, or gallops. ABDOMEN: Soft, nontender, and nondistended. Bowel sounds are present. EXTREMITIES: No clubbing, no cyanosis. Peripheral pulses 2+ felt bilaterally. NEUROLOGIC: The patient is alert and oriented to person, place, and year. Cranial nerves II through XII are intact. Motor exam: Moves all extremities equally. No pronator drift seen. of the distal and proximal muscles of the lower extremities secondary to underlying diabetes. Sensory exam: Decreased light touch to pinprick up to the calves bilaterally, decreased vibration of the toes, proprioception slight decrease in the toes as well. DTRs are 2+ throughout, 1 at both knees and ankles. Coordination: [id number] intact and gait deferred for now. IMPRESSION: Frequent falls secondary to diabetic sensory and motor peripheral neuropathy, superimposed on peripheral arterial disease. PLAN: At this time, I would recommend: 1. Physical therapy for coordination, gait, and balance exercises once he is done with his angiogram for his peripheral arterial disease. 2. Continue with dual antiplatelet given his peripheral arterial disease and Crestor 20 mg after his angiogram is done of his lower extremities by Dr. Summers. 3. Continue broad-spectrum antibiotics for his nonhealing ulcers of the foot. 3. . 4. Keep his blood . Thank you for this consult. Zeus Toledo MD
[2018-09-30 07:44] VITALS: BP 150/82; PULSE 89; TEMP 98.5; O2SAT 94
[2018-09-30 08:05] LABS: BASO # 0.1 K/uL (0.0-0.2); BASO % 1.4 % (0.0-2.0); EOS # 0.2 K/uL (0.0-0.7); EOS % 2.8 % (0.0-4.0); HEMOGLOBIN 9.4 g/dL (12.0-18.0); LYMPH # 0.7 K/uL (1.0-4.3); LYMPH % 10.7 % (20.0-40.0); MEAN CELL VOLUME 85.9 fL (80.0-94.0); MEAN CORPUSCULAR HEMOGLOBIN 27.5 pg (27.0-31.0); MEAN PLATELET VOLUME 7.7 fL (7.2-11.7); MONO # 0.6 K/uL (0.0-0.8); MONO % 9.8 % (0.0-10.0); NEUT # 4.9 K/uL (1.8-7.0); NEUT % 75.3 % (50.0-75.0); RBC 3.41 Mil/uL (4.40-5.90); RED CELL DISTRIBUTION WIDTH 20.3 % (11.5-14.5); WHITE BLOOD COUNT 6.6 K/uL (4.8-10.8)
[2018-09-30 08:28] LABS: ALB/GLOB RATIO 1.1 (1.0-2.1); ALBUMIN 3.6 g/dL (3.5-5.0); ALT/SGPT 14 U/L (21-72); AST/SGOT 23 U/L (17-59); BLOOD UREA NITROGEN 12 mg/dL (9-20); CALCIUM 8.5 mg/dl (8.6-10.4); GFR NON-AFRICAN AMERICAN > 60
--- NOTE | 2018-09-30 09:45 | CP.PCM.CON ---
<Mesha Harry - Last Filed: 09/30/18 09:42> History of Present Illness - History of Present Illness History of Present Illness: Gastroenterology Fellow/PGY6 Consult Note 68 year old male with PMH of CVA, right scalp melanoma s/p resection 1997, Atrial fibrillation on Xarelto, PAD complicated by falls and neuropathy, HTN, Diabetes, Iron/B12 deficiency anemia requiring transfusion, and Polysubstance abuse (heroin/alcohol/tobacco) presenting with non-healing ulcers for vascular intervention. Patient notes recent admission for bilateral foot non-healing ulcers and plan for return to hospital to proceed with vascular intervention. Denies abdominal pain, nausea, vomiting, heartburn, acid reflux, melena, hematochezia, or unintentional weight loss. Last Xarelto and heroin use day prior to admission. Prior colonoscopy 2016 endorsed to be normal with ten year repeat. Family History- denies colon cancer, stomach cancer Social History- daily tobacco and heroin use (10 bags) , weekly beer use- 6-8 beers Surgical History- melanoma resection, B/L knee arthroplasty , umbilical hernia repair, right carpal tunnel surgery Review of Systems - Review of Systems Review of Systems: 12-point review of systems negative except for above Past Patient History - Infectious Disease Hx of Infectious Diseases: None - Past Medical History & Family History Past Medical History?: Yes - Past Social History Smoking Status: Current Some Days Smoker - CARDIAC Hx Hypercholesterolemia: Yes Hx Hypertension: Yes - PULMONARY Hx Respiratory Disorders: No Hx Tuberculosis: No - NEUROLOGICAL Hx Seizures: No - HEENT Hx HEENT Problems: No - RENAL Hx Chronic Kidney Disease: No - ENDOCRINE/METABOLIC Hx Endocrine Disorders: Yes Hx Diabetes Mellitus Type 2: Yes Other/Comment: neuropathy - HEMATOLOGICAL/ONCOLOGICAL Hx Anemia: Yes Hx Human Immunodeficiency Virus (HIV): No - INTEGUMENTARY Hx Dermatological Problems: Yes Hx Melanoma: Yes (Malignant Melonoma removed 1996) - MUSCULOSKELETAL/RHEUMATOLOGICAL Hx Musculoskeletal Disorders: Yes Hx Falls: Yes Other/Comment: walker use - GASTROINTESTINAL Hx Gastrointestinal Disorders: No - GENITOURINARY/GYNECOLOGICAL Hx Sexually Transmitted Disorders: No - PSYCHIATRIC Hx Substance Use: Yes (heroin 10bags/day) - SURGICAL HISTORY Hx Surgeries: Yes Hx Musculoskeletal Surgery: Yes (BILATERAL KNEE, CARPAL TUNNEL) Other/Comment: Umbilical Hernia Repair. B/L Knee Artho,. lymph nodes removeded from jamal axilla - ANESTHESIA Hx Anesthesia: Yes Hx Anesthesia Reactions: No Hx Malignant Hyperthermia: No Meds Allergies/Adverse Reactions: Allergies Allergy/AdvReac Type Severity Reaction Status Date / Time No Known Allergies Allergy Verified 09/21/18 00:32 - Medications Medications: Current Medications Amiodarone HCl (Cordarone) 200 mg PO DAILY [facility] Clonidine HCl (Catapres) 0.1 mg PO TID [facility] Last Admin: 09/29/18 17:37 Dose: 0.1 mg Cyanocobalamin (Vitamin B12 1000 Mcg Tab) 1,000 mcg PO DAILY [facility] Digoxin (Digoxin) 0.125 mg PO DAILY@1800 [facility] Last Admin: 09/29/18 17:37 Dose: 0.125 mg Diltiazem HCl (Cardizem) 360 mg PO DAILY [facility] Ferric Sodium Gluconate Complex (Ferrlecit) 125 mg IVPB Q24H [facility] Stop: 09/30/18 16:01 Last Admin: 09/29/18 16:07 Dose: 125 mg Piperacillin Sod/Tazobactam (Sod 3.375 gm/ Sodium Chloride) 100 mls @ 200 mls/hr IVPB Q8H [facility]; Protocol Last Admin: 09/30/18 03:46 Dose: 200 mls/hr Insulin Aspart (Novolog) 0 unit SC ACHS [facility]; Protocol Last Admin: 09/29/18 21:35 Dose: Not Given Lisinopril (Zestril) 40 mg PO DAILY [facility] Lorazepam (Ativan) 0.5 mg IVP Q12H PRN PRN Reason: Anxiety Last Admin: 09/30/18 06:21 Dose: 0.5 mg Pantoprazole Sodium (Protonix Inj) 40 mg IVP DAILY [facility] Last Admin: 09/29/18 10:29 Dose: 40 mg Rosuvastatin Calcium (Crestor) 20 mg PO HS [facility] Last Admin: 09/29/18 21:35 Dose: 20 mg Temazepam (Restoril) 30 mg PO HS PRN PRN Reason: Insomnia Last Admin: 09/29/18 21:35 Dose: 30 mg Physical Exam - Constitutional Appears: Non-toxic, No Acute Distress - Head Exam Head Exam: ATRAUMATIC, NORMOCEPHALIC - Eye Exam Eye Exam: EOMI, PERRL. absent: Scleral icterus Pupil Exam: PERRL. absent: Miosis, Mydriatic - ENT Exam ENT Exam: Mucous Membranes Moist, Normal Oropharynx - Neck Exam Neck exam: Positive for: Full Rom, Normal Inspection - Respiratory Exam Respiratory Exam: Clear to Auscultation Bilateral. absent: Rales, Rhonchi, Wheezes - Cardiovascular Exam Cardiovascular Exam: RRR, +S1, +S2. absent: Gallop, Rubs - GI/Abdominal Exam GI & Abdominal Exam: Normal Bowel Sounds, Soft. absent: Distended, Firm, Guarding, Organomegaly, Rebound, Rigid, Tenderness - Extremities Exam Extremities exam: Positive for: normal inspection - Neurological Exam Neurological exam: Alert - Psychiatric Exam Psychiatric exam: Normal Affect, Normal Mood - Skin Skin Exam: Dry, Intact, Normal Color, Warm Results - Vital Signs Recent Vital Signs: Last Vital Signs Temp 98.5 F 09/30/18 07:00 Pulse 89 09/30/18 07:00 Resp 20 09/30/18 07:00 BP 150/82 09/30/18 07:00 Pulse Ox 94 L 09/30/18 07:00 - Labs Result Diagrams: 09/30/18 07:20 09/30/18 07:20 Labs: Laboratory Results - last 24 hr 09/29/18 09/30/18 09/30/18 03:53 06:08 07:20 WBC 6.6 RBC 3.41 L Hgb 9.4 L Hct 29.3 L MCV 85.9 MCH 27.5 MCHC 32.0 L RDW 20.3 H Plt Count 264 MPV 7.7 Neut % (Auto) 75.3 H Lymph % (Auto) 10.7 L [place] % (Auto) 9.8 Eos % (Auto) 2.8 Baso % (Auto) 1.4 Neut # (Auto) 4.9 Lymph # (Auto) 0.7 L [place] # (Auto) 0.6 Eos # (Auto) 0.2 Baso # (Auto) 0.1 Sodium Potassium Chloride Carbon Dioxide Anion Gap BUN Creatinine Est GFR ( Amer) Est GFR (Non-Af Amer) Random Glucose Calcium Total Bilirubin AST ALT Alkaline Phosphatase Total Protein Albumin Globulin Albumin/Globulin Ratio Urine Color Straw Urine Clarity Clear Urine pH 7.0 Ur Specific [place] 1.006 Urine Protein Negative Urine Glucose (UA) Normal Urine Ketones Negative Urine Blood 1+ H Urine Nitrate Negative Urine Bilirubin Negative Urine Urobilinogen Normal Ur Leukocyte Esterase Neg Urine WBC (Auto) < 1 Urine RBC (Auto) 1 Blood Type O POSITIVE Antibody Screen Negative 09/30/18 07:20 WBC RBC Hgb Hct MCV MCH MCHC RDW Plt Count MPV Neut % (Auto) Lymph % (Auto) [place] % (Auto) Eos % (Auto) Baso % (Auto) Neut # (Auto) Lymph # (Auto) [place] # (Auto) Eos # (Auto) Baso # (Auto) Sodium 136 Potassium 4.1 Chloride 104 Carbon Dioxide 22 Anion Gap 14 BUN 12 Creatinine 1.0 Est GFR ( Amer) > 60 Est GFR (Non-Af Amer) > 60 Random Glucose 115 H Calcium 8.5 L Total Bilirubin 1.2 AST 23 ALT 14 L D Alkaline Phosphatase 110 Total Protein 6.8 Albumin 3.6 Globulin 3.3 Albumin/Globulin Ratio 1.1 Urine Color Urine Clarity Urine pH Ur Specific [place] Urine Protein Urine Glucose (UA) Urine Ketones Urine Blood Urine Nitrate Urine Bilirubin Urine Urobilinogen Ur Leukocyte Esterase Urine WBC (Auto) Urine RBC (Auto) Blood Type Antibody Screen Assessment & Plan - Assessment and Plan (Free Text) Assessment: 68 year old male with PMH of CVA, right scalp melanoma s/p resection 1997, Atrial fibrillation on Xarelto, PAD complicated by falls and neuropathy, HTN, Diabetes, Iron/B12 deficiency anemia requiring transfusion, and Polysubstance abuse (heroin/alcohol/tobacco) presenting with non-healing ulcers for vascular intervention. GI consultation for anemia. Last Xarelto and heroin use day prior to admission. Prior colonoscopy 2016 endorsed to be normal with ten year repeat. Plan: -H/H with appropriate response to 2 Unit pRBC transfusion -on record review 4U pRBC transfusion with Hb 5.2 06/2018 -no signs of overt GI bleed -rectal brown stool -vascular intervention today -EGD tomorrow, Saturday, 10/01 -NPO after midnight -continue to hold Xarelto today for procedure tomorrow -PPI ACB -on iron transfusion and B12 supplementation -history of Hepatitis C- endorses s/p Ramya in 2016 -will benefit from further outpatient follow up of Hepatitis C status -further recommendations after EGD tomorrow -monitor for signs of withdrawal with daily tobacco, heroin, and weekly alcohol use -will follow clinical course <Andre España Y - Last Filed: 09/30/18 10:22> Meds - Medications Medications: Current Medications Amiodarone HCl (Cordarone) 200 mg PO DAILY [facility] Clonidine HCl (Catapres) 0.1 mg PO TID [facility] Last Admin: 09/29/18 17:37 Dose: 0.1 mg Cyanocobalamin (Vitamin B12 1000 Mcg Tab) 1,000 mcg PO DAILY [facility] Digoxin (Digoxin) 0.125 mg PO DAILY@1800 [facility] Last Admin: 09/29/18 17:37 Dose: 0.125 mg Diltiazem HCl (Cardizem) 360 mg PO DAILY [facility] Ferric Sodium Gluconate Complex (Ferrlecit) 125 mg IVPB Q24H [facility] Stop: 09/30/18 16:01 Last Admin: 09/29/18 16:07 Dose: 125 mg Piperacillin Sod/Tazobactam (Sod 3.375 gm/ Sodium Chloride) 100 mls @ 200 mls/hr IVPB Q8H [facility]; Protocol Last Admin: 09/30/18 03:46 Dose: 200 mls/hr Insulin Aspart (Novolog) 0 unit SC ACHS [facility]; Protocol Last Admin: 09/29/18 21:35 Dose: Not Given Lisinopril (Zestril) 40 mg PO DAILY [facility] Lorazepam (Ativan) 0.5 mg IVP Q12H PRN PRN Reason: Anxiety Last Admin: 09/30/18 06:21 Dose: 0.5 mg Pantoprazole Sodium (Protonix Inj) 40 mg IVP DAILY [facility] Last Admin: 09/29/18 10:29 Dose: 40 mg Rosuvastatin Calcium (Crestor) 20 mg PO HS [facility] Last Admin: 09/29/18 21:35 Dose: 20 mg Temazepam (Restoril) 30 mg PO HS PRN PRN Reason: Insomnia Last Admin: 09/29/18 21:35 Dose: 30 mg Results - Vital Signs Recent Vital Signs: Last Vital Signs Temp 98.5 F 09/30/18 07:00 Pulse 89 09/30/18 07:00 Resp 20 09/30/18 07:00 BP 150/82 09/30/18 07:00 Pulse Ox 94 L 09/30/18 07:00 - Labs Result Diagrams: 09/30/18 07:20 09/30/18 07:20 Labs: Laboratory Results - last 24 hr 09/29/18 09/30/18 09/30/18 03:53 06:08 07:20 WBC 6.6 RBC 3.41 L Hgb 9.4 L Hct 29.3 L MCV 85.9 MCH 27.5 MCHC 32.0 L RDW 20.3 H Plt Count 264 MPV 7.7 Neut % (Auto) 75.3 H Lymph % (Auto) 10.7 L [place] % (Auto) 9.8 Eos % (Auto) 2.8 Baso % (Auto) 1.4 Neut # (Auto) 4.9 Lymph # (Auto) 0.7 L [place] # (Auto) 0.6 Eos # (Auto) 0.2 Baso # (Auto) 0.1 Sodium Potassium Chloride Carbon Dioxide Anion Gap BUN Creatinine Est GFR ( Amer) Est GFR (Non-Af Amer) Random Glucose Calcium Total Bilirubin AST ALT Alkaline Phosphatase Total Protein Albumin Globulin Albumin/Globulin Ratio Urine Color Straw Urine Clarity Clear Urine pH 7.0 Ur Specific [place] 1.006 Urine Protein Negative Urine Glucose (UA) Normal Urine Ketones Negative Urine Blood 1+ H Urine Nitrate Negative Urine Bilirubin Negative Urine Urobilinogen Normal Ur Leukocyte Esterase Neg Urine WBC (Auto) < 1 Urine RBC (Auto) 1 Blood Type O POSITIVE Antibody Screen Negative 09/30/18 07:20 WBC RBC Hgb Hct MCV MCH MCHC RDW Plt Count MPV Neut % (Auto) Lymph % (Auto) [place] % (Auto) Eos % (Auto) Baso % (Auto) Neut # (Auto) Lymph # (Auto) [place] # (Auto) Eos # (Auto) Baso # (Auto) Sodium 136 Potassium 4.1 Chloride 104 Carbon Dioxide 22 Anion Gap 14 BUN 12 Creatinine 1.0 Est GFR ( Amer) > 60 Est GFR (Non-Af Amer) > 60 Random Glucose 115 H Calcium 8.5 L Total Bilirubin 1.2 AST 23 ALT 14 L D Alkaline Phosphatase 110 Total Protein 6.8 Albumin 3.6 Globulin 3.3 Albumin/Globulin Ratio 1.1 Urine Color Urine Clarity Urine pH Ur Specific [place] Urine Protein Urine Glucose (UA) Urine Ketones Urine Blood Urine Nitrate Urine Bilirubin Urine Urobilinogen Ur Leukocyte Esterase Urine WBC (Auto) Urine RBC (Auto) Blood Type Antibody Screen Attending/Attestation - Attestation I have personally seen and examined this patient.: Yes I have fully participated in the care of the patient.: Yes I have reviewed all pertinent clinical information: Yes Notes (Text): 09/30/18 10:17 I have seen and examined patient with GI fellow. Agree with above documentation with the following additions. In brief, this is a 68 year old male with history of atrial fibrillation on xarelto, substance abuse, obesity, DM, HTN, CVA, PVD with lower extremity ulceration, HCV s/p treatment with Harvoni and supposed SVR who was sent to hospital for evaluation of worsening anemia. He reports having recent weakness with frequent falls at home. He denies abdominal pain, nausea, vomiting, fever/chills, weight loss, rectal bleeding, melena, NSAID use, or change in bowel habits. He claims to have had a colonoscopy 3 years ago which was normal as per patient, no prior EGD. Atrial fibrillation on xarelto (held) Substance abuse (heroin) History of HCV Obesity HTN DM CVA PVD Anemia, symptomatic - NPO - Patient transfused 2 units PRBC, continue to monitor H/H - Continue with PPI therapy - Patient planned for vascular angiogram today by surgical team, follow up results and recommendations - Given need for patient to be on anticoagulation, would favor EGD evaluation tomorrow to rule out PUD prior to resuming therapy. Patient would also benefit from repeat colonoscopy which can likely be performed electively as outpatient. - Substance abuse cessation counseling - Further recommendations following EGD tomorrow
--- NOTE | 2018-09-30 23:07 | CP.PCM.PN ---
Subjective - Date & Time of Evaluation Date of Evaluation: 09/30/18 Objective - Vital Signs/Intake and Output Vital Signs (last 24 hours): Temp Pulse Resp BP Pulse Ox 98.5 F 89 20 150/82 94 L 09/30/18 07:00 09/30/18 07:00 09/30/18 07:00 09/30/18 07:00 09/30/18 07:00 - Labs Labs: 09/30/18 07:20 09/30/18 07:20 Assessment and Plan - Assessment and Plan (Free Text) Plan: pt signed out ama
== END 2018-09-30 09:15 | disposition left against medical advice (07) ==
LOC: C.ER 00:18 → SUPCPDRO 00:18 → C.6T 03:17
PROVIDERS: ADMIT Internal Medicine Nephrology; ATTEND Internal Medicine Nephrology
DX: E11.42 Type 2 diabetes mellitus with diabetic polyneuropathy (principal); E11.51 Type 2 diabetes mellitus with diabetic peripheral angiopathy without gangrene; Z79.01 Long term (current) use of anticoagulants; I48.91 Unspecified atrial fibrillation; R29.6 Repeated falls; Z86.73 Personal history of transient ischemic attack (TIA), and cerebral infarction without residual deficits; E11.621 Type 2 diabetes mellitus with foot ulcer; L97.429 Non-pressure chronic ulcer of left heel and midfoot with unspecified severity; L97.419 Non-pressure chronic ulcer of right heel and midfoot with unspecified severity; I11.0 Hypertensive heart disease with heart failure; I50.9 Heart failure, unspecified; E78.00 Pure hypercholesterolemia, unspecified; K75.9 Inflammatory liver disease, unspecified; F17.210 Nicotine dependence, cigarettes, uncomplicated; Z79.4 Long term (current) use of insulin
CPT/HCPCS: 36415; 36430; 80053; 81001; 82948; 85025; 86850; 86900; 86920; 97162; 97530; 99285; C9113; G0378; G8978; G8979; J2060; J2543; J2916; P9051

== ENCOUNTER 2018-10-01 22:49 | Inpatient (IN) | payer MEDICARE, MEDICAID | END 2018-10-03 12:30 | disposition left against medical advice (07) | LOC: C.ER 22:49 → C.6T 10-02 00:32 ==

== ENCOUNTER 2018-10-07 01:04 | Inpatient (IN) | payer MEDICARE, MEDICAID ==
[2018-10-07 01:05] VITALS: BMI 38.4
[2018-10-07 03:23] LABS: BASO # 0.1 K/uL (0.0-0.2); BASO % 1.6 % (0.0-2.0); EOS # 0.2 K/uL (0.0-0.7); EOS % 3.7 % (0.0-4.0); HEMOGLOBIN 10.3 g/dL (12.0-18.0); LYMPH # 0.9 K/uL (1.0-4.3); LYMPH % 14.5 % (20.0-40.0); MEAN CORPUSCULAR HEMOGLOBIN 27.9 pg (27.0-31.0); MEAN CORPUSCULAR HGB CONC 32.1 g/dL (33.0-37.0); MEAN PLATELET VOLUME 7.7 fL (7.2-11.7); MONO # 0.7 K/uL (0.0-0.8); MONO % 10.9 % (0.0-10.0); NEUT # 4.2 K/uL (1.8-7.0); NEUT % 69.3 % (50.0-75.0); NRBC % 0.1 % (0.0-2.0); RBC 3.71 Mil/uL (4.40-5.90); RED CELL DISTRIBUTION WIDTH 20.6 % (11.5-14.5); WHITE BLOOD COUNT 6.1 K/uL (4.8-10.8)
[2018-10-07 03:25] LABS: BARBITURATES, UR NEGATIVE (NEGATIVE); BENZODIAZEPINES, UR NEGATIVE (NEGATIVE); PHENCYCLIDINE, UR NEGATIVE (NEGATIVE)
[2018-10-07 03:30] LABS: ALB/GLOB RATIO 1.1 (1.0-2.1); ALBUMIN 3.9 g/dL (3.5-5.0); ALT/SGPT 11 U/L (21-72); AST/SGOT 47 U/L (17-59); BLOOD UREA NITROGEN 18 mg/dL (9-20); CALCIUM 8.7 mg/dl (8.6-10.4); GFR NON-AFRICAN AMERICAN > 60
[2018-10-07 03:32] LABS: OPIATES, UR POSITIVE (NEGATIVE)
[2018-10-07] MEDS ORDERED: Clindamycin 300 MG in Sodium Chloride 0.9% 50 ML IVPB STA (03:54)
--- NOTE | 2018-10-07 04:02 | C.PDOC ---
History Of Present Illness 68 year old male with Hx of diabetes, diabetic neuropathy, and chronic foot ulcers presents stating he feels weak and his ulcers hurt so much he feels like his legs area giving out on him. Denies fever, abdominal pain, or other comp laints. Patient is also opiod dependent. Time Seen by Provider: 10/07/18 01:46 Chief Complaint (Nursing): Weakness/Neurological Deficit History Per: Patient History/Exam Limitations: no limitations Onset/Duration Of Symptoms: Days Current Symptoms Are (Timing): Still Present Seizure Or Post-ictal Symptoms: None Fall Associated With With Symptoms: No Recent travel outside of the [place]: No - Symptoms Of CVA Associated Symptoms: denies: Impaired Speech, Seizure Activity, New Vision Deficit(Left), New Vision Deficit(Right), Decreased Ability To Walk, New Confusion Past Medical History Reviewed: Historical Data, Nursing Documentation, Vital Signs Vital Signs: Last Vital Signs Temp 98.0 F 10/07/18 01:39 Pulse 103 H 10/07/18 01:39 Resp 14 10/07/18 01:39 BP 145/88 10/07/18 01:39 Pulse Ox 97 10/07/18 01:39 - Medical History PMH: Anemia, Atrial Fibrillation, Diabetes, Hepatitis, HTN, Hypercholesterolemia Denies: Deep Vein Thrombosis, HIV, Chronic Kidney Disease, Seizures, Sexually Transmitted Disease Comment Only: CHF (A-fib) Surgical History: Denies: Pacemaker - [facility] Procedures DETOXIFICATION SERVICES FOR SUBSTANCE ABUSE TREATMENT (09/23/18) DRUG DETOXIFICATION (03/15/15) FLUOROSCOPY OF AORTA, BI LE ART USING L OSM CONTRAST (10/02/18) INDIV PSYCHOTHERAPY FOR SUBSTANCE ABUSE TREATMENT, SUPPORT (09/23/18) INDIV PSYCHOTHERAPY FOR SUBSTANCE ABUSE, COGNITIV BEHAVIORAL (09/23/18) INDIV PSYCHOTHERAPY FOR SUBSTANCE ABUSE, PSYCHOEDUCATION (09/23/18) INSERTION OF INFUSION DEV INTO L BASILIC VEIN, PERC APPROACH (08/30/18) MEDS MGMT FOR SUBSTANCE ABUSE TREATMENT, METHADONE MAINT (07/06/18) TETANUS TOXOID ADMINIST (04/19/15) TRANSFUSE NONAUT RED BLOOD CELLS IN PERIPH VEIN, PERC (09/23/18) ULTRASONOGRAPHY OF LEFT UPPER EXTREMITY VEINS, GUIDANCE (08/30/18) Family History: States: Unknown Family Hx - Social History Hx Tobacco Use: No Hx Alcohol Use: Yes Hx Substance Use: Yes - Immunization History Hx Tetanus Toxoid Vaccination: Yes Hx Influenza Vaccination: Yes Hx Pneumococcal Vaccination: Yes Review Of Systems Constitutional: Positive for: Weakness. Negative for: Fever, Chills Cardiovascular: Negative for: Chest Pain, Palpitations Respiratory: Negative for: Cough, Shortness of Breath Gastrointestinal: Negative for: Nausea, Vomiting Musculoskeletal: Negative for: Back Pain Skin: Positive for: Other (Ulcers) Neurological: Negative for: Headache, Dizziness Physical Exam - Physical Exam Appears: Non-toxic Skin: Warm, Dry Head: Atraumatic, Normacephalic Eye(s): bilateral: Normal Inspection Oral Mucosa: Moist Neck: Normal, Supple Chest: Symmetrical, No Tenderness Cardiovascular: Rhythm Regular Respiratory: Normal Breath Sounds, No Rales, No Rhonchi, No Wheezing Gastrointestinal/Abdominal: Soft, No Tenderness Back: No CVA Tenderness Extremity: Capillary Refill (<2 seconds), Other (Erythema to bilateral lower legs with 1+ pitting edema, warm to touch. Ulcer to left heel. Dry scabby necrotic like lesions to bilateral toes.) Pulses: Left Dorsalis Pedis: Normal, Right Dorsalis Pedis: Normal Neurological/Psych: Oriented x3, Normal Speech Gait: Unable To Assess ED Course And Treatment - Laboratory Results Result Diagrams: 10/07/18 03:05 10/07/18 03:05 Lab Results: Total Bilirubin 0.8 mg/dL (0.2-1.3) 10/07/18 03:05 AST 47 U/L (17-59) 10/07/18 03:05 ALT 11 U/L (21-72) L D 10/07/18 03:05 Alkaline Phosphatase 102 U/L (38-126) 10/07/18 03:05 Total Protein 7.3 g/dL (6.3-8.3) 10/07/18 03:05 Albumin 3.9 g/dL (3.5-5.0) 10/07/18 03:05 Globulin 3.4 gm/dL (2.2-3.9) 10/07/18 03:05 Albumin/Globulin Ratio 1.1 (1.0-2.1) 10/07/18 03:05 O2 Sat by Pulse Oximetry: 97 (Room air) Pulse Ox Interpretation: Normal Progress Note: Labs ordered and reviewed, patient started on clinda. Case discussed with Dr. Nico Forrest who accepts patient to his service. Disposition - Disposition Disposition: HOSPITALIZED Disposition Time: 04:04 Condition: STABLE - Clinical Impression Clinical Impression: Chronic wound of extremity, Foot ulcer, Bilateral cellulitis of lower leg - PA / KITCHEN AIDE / Resident Statement MD/DO has reviewed & agrees with the documentation as recorded. - Scribe Statement The provider has reviewed the documentation as recorded by the Scribe Luis Felipe Munroe All medical record entries made by the Terranceibjulio were at my direction and personally dictated by me. I have reviewed the chart and agree that the record accurately reflects my personal performance of the history, physical exam, medical decision making, and the department course for this patient. I have also personally directed, reviewed, and agree with the discharge instructions and disposition.
[2018-10-07] MEDS ORDERED: Glucagon Recombinant 1 mg Inj IM PRN (08:39)
[2018-10-07] MEDS ORDERED: Dextrose 50% SYRINGE Inj (50 ml) IV PRN (08:39)
--- NOTE | 2018-10-07 09:29 | PCM.PSYCH ---
Initial Psychiatric Evaluation - Initial Psychiatric Evaluation Type of Admission: Voluntary Legal Status: Capacity Chief Complaint (in patient's own words): I was abusing heroine. History of Present Illness and Precipitating Events: Pt is a 68 year old male with Hx of diabetes, diabetic neuropathy, and chronic foot ulcers presents stating he feels weak and his ulcers hurt so much he feels like his legs area giving out on him. Patient is also opioid dependent. Today patient was consulted by psychiatry. Patient reports a long history of abusing heroin. Patient states he is in the hospital for severe foot pain and ulcerations secondary to diabetes mellitus. Patient reports that he is currently experiencing heroin withdrawal symptoms of nausea, stomach pain and cramps, muscle aches, lacrimation, and yawning. Patient confirms both sniffing and injecting 10 bags of heroin per day for the last 20 years. His last use was yesterday afternoon. Patient began using after a succession of deaths in his family. Patient did not state cause of . Patient still uses to "fill the void" that he feels remains. Patient confirmed drinking 10 beers per week but denied other drug use. Patient states his mood is currently normal and he has no depressive symptoms. Patient confirms he completed 2 prior detoxes, most recently in 2017. Patient denies rehab or history of inpatient psychiatric hospitalizations. Patient confirms methadone maintenance therapy but did no specify the dose. He reports irritability but he denies any feelings of hopelessness or helplessness. He denies any suicidal ideation or any homicidal ideation. He denies any auditory hallucinations or any paranoia. MedHx: DM, HTN, afib, malignant melanoma Allergies: denies Meds: Xarelto, Temazepam, Metformin, Lisinopril, Insulin Lantus, Gabapentin, Diltiazem, Digoxin, Atorvastatin SurgHx: bilateral knee replacement, carpal tunnel, umbilical hernia, malignant melanoma removal right scapula Current Medications: Active Medications Generic Name Dose Route Start Last Admin Trade Name Freq PRN Reason Stop Dose Admin Dextrose 0 ml 10/07/18 08:39 Dextrose 50% Inj IV STAT PRN Hypoglycemia Protocol Protocol Dextrose 0 gm 10/07/18 08:39 Glutose 15 PO ONCE PRN Hypoglycemia Protocol Protocol Digoxin 0.125 mg 10/07/18 18:00 Digoxin PO DAILY@1800 [facility] Diltiazem HCl 360 mg 10/07/18 09:00 Cardizem Cd PO Q24H [facility] Enoxaparin Sodium 40 mg 10/07/18 10:00 Lovenox SC DAILY [facility] Gabapentin 800 mg 10/07/18 10:00 Neurontin PO BID [facility] Glucagon 0 mg 10/07/18 08:39 Glucagen Diagnostic Kit IM STAT PRN Hypoglycemia Protocol Protocol Dextrose 1,000 mls @ 0 mls/hr 10/07/18 08:39 Dextrose 5% In Water 1000 Ml IV .Q0M PRN Hypoglycemia Protocol Protocol Per Protocol Piperacillin Sod/Tazobactam Sod 3.375 gm in 50 mls @ 100 mls/hr 10/07/18 14:00 Zosyn 3.375 Gm Iv Premix IVPB Q8 [facility] Protocol Insulin Aspart 0 unit 10/07/18 11:30 Novolog SC ACHS [facility] Protocol Lisinopril 40 mg 10/07/18 10:00 Zestril PO DAILY [facility] Metformin HCl 1,000 mg 10/07/18 09:30 Glucophage PO BIDCC [facility] Temazepam 30 mg 10/07/18 08:47 Restoril PO HS PRN Insomnia Past Psychiatric History - Past Psychiatric History Previous Treatment History: Inpatient Pertinent Medical Hx (Current Medical&Sleep Prob, Allergies): Allergies Allergy/AdvReac Type Severity Reaction Status Date / Time No Known Allergies Allergy Verified 10/01/18 23:18 MetFORMIN [glucOPHAGE] 1,000 mg PO BID 11/16/14 Atorvastatin [Lipitor] 40 mg PO DAILY 03/29/17 Insulin Glargine, Recombina [Lantus] 50 unit SQ HS 03/29/17 Digoxin 125 mcg PO DAILY 01/21/18 Gabapentin 800 mg PO BID 01/21/18 Xarelto 20 mg PO DAILY 01/21/18 Diltiazem HCl [Diltiazem 24Hr ER] 360 mg PO Q24H 10/02/18 Lisinopril [Zestril] 40 mg PO DAILY 10/02/18 Temazepam 30 mg PO HS PRN 10/02/18 Review of Systems - Review of Systems All systems: reviewed and no additional remarkable complaints except - Psychiatric Psychiatric: Anxiety, Irritability. absent: Suicidal Ideation Mental Status Examination - Personal Presentation Personal Presentation: Looks stated age - Affect Affect: Constricted - Motor Activity Motor Activity: Calm - Reliability in Providing Information Reliability in Providing Information: Fair - Speech Speech: Organized - Mood Mood: Anxious - Formal Thought Process Formal Thought Process: No Impairment - Obsessions/Compulsions Obsessions: No Compulsions: No - Cognitive Functions Orientation: Person, Place, Situation, Time Sensorium: Alert Attention/Concentration: Attentive Abstract Thinking: [place] Estimate of Intelligence: Below average Judgement: Imparied, as evidence by: Poor judgement, Imparied, as evidence by: Lack of insight into illness - Risk Risk: Withdrawal, Diminished functioning - Limitations Limitations: Living alone DSM 5 DX - DSM 5 DSM 5 Diagnosis: Opioid use disorder severe Opioid withdrawal - Recommended/Plan of Treatment Treatment Recommendations and Plan of Treatment: Opioid use disorder severe Opioid withdrawal Supportive therapy Methadone taper Withdrawal medications including loperamide/Zofran/hydroxyzine Patient psychiatrically stable and cleared. - Smoking Cessation Smoking Cessation Initiated: No
[2018-10-07] MEDS ORDERED: Aluminum Hydroxide/Magnesium Hydroxide Susp (30 mL) PO PRN (10:21)
[2018-10-07] MEDS: Enoxaparin 40 mg Syringe SC SCH (10:30)
[2018-10-07] MEDS: diltiaZEM 180 mg/24 Hours CD Cap PO SCH (10:31)
[2018-10-07] MEDS: (Novolog) Insulin Aspart, Recombinant 100 u/ml 10 ml vial SC SCH ×3 (12:04→21:33)
--- NOTE | 2018-10-07 12:35 | CP.PCM.CON ---
History of Present Illness - History of Present Illness History of Present Illness: Surgical Consult Note for Dr. Summers HPI: Patient is a 68 year diabetic male presents with bilateral foot ulcerations and pain. He states that his pain is primarily located on his toes and heels and has been going on for 3 months. He rates the pain a 7/10, worse with ambulation. He has tried ibuprofen 700mg without any relief. Of note, patient also uses heroin (10bags/day), last use yesterday. He admits he experiences intermittent chills, SOB, diarrhea, and constipation. He denies fever, headaches, dizziness, chest pain, palpitations, muscle pain. Patient is status post angiogram with patent vessels. PMHx: Diabetes, hyperlipidemia, HTN, malignant melanoma PSHx: Bilateral knee replacements (2015), Umbilical hernia (2007), malignant melanoma removal 1994 Allergies: NKDA Medications: Metformin, Lantis, Gabapentin, Atorvastatin, Lisinopril, diltiazem Social: Admits to using 10bags of heroin/day (last used yesterday). Denies smoking, (+) occasional alcohol use Past Patient History - Infectious Disease Hx of Infectious Diseases: None - Past Medical History & Family History Past Medical History?: Yes - Past Social History Smoking Status: Never Smoked - CARDIAC Hx Atrial Fibrillation: Yes Hx Congestive Heart Failure: (A-fib) Hx Hypercholesterolemia: Yes Hx Hypertension: Yes Hx Pacemaker: No - PULMONARY Hx Respiratory Disorders: No Hx Tuberculosis: No - NEUROLOGICAL Hx Seizures: No - HEENT Hx HEENT Problems: No - RENAL Hx Chronic Kidney Disease: No - ENDOCRINE/METABOLIC Hx Endocrine Disorders: Yes Hx Diabetes Mellitus Type 2: Yes Other/Comment: neuropathy - HEMATOLOGICAL/ONCOLOGICAL Hx Anemia: Yes Hx Human Immunodeficiency Virus (HIV): No - INTEGUMENTARY Hx Dermatological Problems: Yes Hx Melanoma: Yes (Malignant Melonoma removed 1996) - MUSCULOSKELETAL/RHEUMATOLOGICAL Hx Falls: Yes - GASTROINTESTINAL Hx Gastrointestinal Disorders: No - GENITOURINARY/GYNECOLOGICAL Hx Sexually Transmitted Disorders: No - PSYCHIATRIC Hx Substance Use: Yes - SURGICAL HISTORY Hx Surgeries: Yes Hx Musculoskeletal Surgery: Yes (BILATERAL KNEE, CARPAL TUNNEL) Other/Comment: Umbilical Hernia Repair. B/L Knee Artho,. lymph nodes removeded from jamal axilla - ANESTHESIA Hx Anesthesia: Yes Hx Anesthesia Reactions: No Hx Malignant Hyperthermia: No Meds Allergies/Adverse Reactions: Allergies Allergy/AdvReac Type Severity Reaction Status Date / Time No Known Allergies Allergy Verified 10/01/18 23:18 - Medications Medications: Current Medications Al Hydrox/Mg Hydrox/Simethicone (Maalox 30 Ml) 30 ml PO TID PRN PRN Reason: Indigestion / Heartburn Clonidine HCl (Catapres) 0.1 mg PO Q4 PRN PRN Reason: COWS Score More or Equal to 5 Dextrose (Dextrose 50% Inj) 0 ml IV STAT PRN; Protocol PRN Reason: Hypoglycemia Protocol Dextrose (Glutose 15) 0 gm PO ONCE PRN; Protocol PRN Reason: Hypoglycemia Protocol Dicyclomine HCl (Bentyl) 10 mg PO Q6 PRN PRN Reason: Muscle spasm Digoxin (Digoxin) 0.125 mg PO DAILY@1800 [facility] Diltiazem HCl (Cardizem Cd) 360 mg PO Q24H [facility] Last Admin: 10/07/18 10:31 Dose: 360 mg Enoxaparin Sodium (Lovenox) 40 mg SC DAILY [facility] Last Admin: 10/07/18 10:30 Dose: 40 mg Gabapentin (Neurontin) 800 mg PO BID [facility] Last Admin: 10/07/18 10:32 Dose: 800 mg Glucagon (Glucagen Diagnostic Kit) 0 mg IM STAT PRN; Protocol PRN Reason: Hypoglycemia Protocol Dextrose (Dextrose 5% In Water 1000 Ml) 1,000 mls @ 0 mls/hr IV .Q0M PRN; Protocol PRN Reason: Hypoglycemia Protocol Piperacillin Sod/Tazobactam Sod (Zosyn 3.375 Gm Iv Premix) 3.375 gm in 50 mls @ 100 mls/hr IVPB Q8 [facility]; Protocol Insulin Aspart (Novolog) 0 unit SC ACHS [facility]; Protocol Last Admin: 10/07/18 12:04 Dose: 1 unit Lisinopril (Zestril) 40 mg PO DAILY [facility] Last Admin: 10/07/18 10:30 Dose: 40 mg Loperamide HCl (Imodium) 2 mg PO Q8 PRN PRN Reason: Diarrhea [facility] Admin: 10/07/18 10:30 Dose: 1,000 mg Methadone HCl (Methadone) 20 mg PO Q24H [facility]; Taper Stop: 10/11/18 10:29 Last Admin: 10/07/18 10:40 Dose: 20 mg Ondansetron HCl (Zofran Tab) 4 mg PO Q8 PRN PRN Reason: Nausea/Vomiting Pseudoephedrine HCl (Sudafed Tab) 60 mg PO QID PRN PRN Reason: Nasal/Sinus Congestion Temazepam (Restoril) 30 mg PO HS PRN PRN Reason: Insomnia Physical Exam - Constitutional Appears: Non-toxic, No Acute Distress - Head Exam Head Exam: ATRAUMATIC, NORMOCEPHALIC - Eye Exam Eye Exam: EOMI, Normal appearance - ENT Exam ENT Exam: Mucous Membranes Moist - Respiratory Exam Respiratory Exam: Clear to Auscultation Bilateral, NORMAL BREATHING PATTERN - Cardiovascular Exam Cardiovascular Exam: REGULAR RHYTHM, +S1, +S2 - GI/Abdominal Exam GI & Abdominal Exam: Normal Bowel Sounds, Soft - Extremities Exam Additional comments: Wound on toes bilaterally, no warmth, redness noted. Good capillary refills. Palpable pulses present bilaterally. Results - Vital Signs Recent Vital Signs: Last Vital Signs Temp 97.4 F L 10/07/18 07:00 Pulse 94 H 10/07/18 07:00 Resp 20 10/07/18 07:00 BP 170/89 H 10/07/18 07:00 Pulse Ox 96 10/07/18 07:00 - Labs Result Diagrams: 10/07/18 03:05 10/07/18 03:05 Labs: Laboratory Results - last 24 hr 10/07/18 10/07/18 10/07/18 03:05 03:05 03:05 WBC 6.1 RBC 3.71 L Hgb 10.3 L Hct 32.2 L MCV 87.0 MCH 27.9 MCHC 32.1 L RDW 20.6 H Plt Count 265 MPV 7.7 Neut % (Auto) 69.3 Lymph % (Auto) 14.5 L [place] % (Auto) 10.9 H Eos % (Auto) 3.7 Baso % (Auto) 1.6 Neut # (Auto) 4.2 Lymph # (Auto) 0.9 L [place] # (Auto) 0.7 Eos # (Auto) 0.2 Baso # (Auto) 0.1 Sodium 138 Potassium 5.0 Chloride 106 Carbon Dioxide 26 Anion Gap 11 BUN 18 Creatinine 0.9 Est GFR ( Amer) > 60 Est GFR (Non-Af Amer) > 60 POC Glucose (mg/dL) Random Glucose 106 Calcium 8.7 Total Bilirubin 0.8 AST 47 ALT 11 L D Alkaline Phosphatase 102 Total Protein 7.3 Albumin 3.9 Globulin 3.4 Albumin/Globulin Ratio 1.1 Urine Opiates Screen Positive H Urine Methadone Screen Negative Ur Barbiturates Screen Negative Ur Phencyclidine Scrn Negative Ur Amphetamines Screen Negative U Benzodiazepines Scrn Negative U Oth Cocaine Metabols Negative U Cannabinoids Screen Negative 10/07/18 10/07/18 07:12 11:02 WBC RBC Hgb Hct MCV MCH MCHC RDW Plt Count MPV Neut % (Auto) Lymph % (Auto) [place] % (Auto) Eos % (Auto) Baso % (Auto) Neut # (Auto) Lymph # (Auto) [place] # (Auto) Eos # (Auto) Baso # (Auto) Sodium Potassium Chloride Carbon Dioxide Anion Gap BUN Creatinine Est GFR ( Amer) Est GFR (Non-Af Amer) POC Glucose (mg/dL) 107 179 H Random Glucose Calcium Total Bilirubin AST ALT Alkaline Phosphatase Total Protein Albumin Globulin Albumin/Globulin Ratio Urine Opiates Screen Urine Methadone Screen Ur Barbiturates Screen Ur Phencyclidine Scrn Ur Amphetamines Screen U Benzodiazepines Scrn U Oth Cocaine Metabols U Cannabinoids Screen Assessment & Plan - Assessment and Plan (Free Text) Assessment: 68 year old male presenting with pain to bilateral feet, status post angiogram with patent vessels. Plan: No surgical intervention at this time Abx per primary team Keep legs elevated May benefit from compression stockings. Please reconsult as necessary.
[2018-10-07] MEDS ORDERED: Pneumococcal 23-Valent Vaccine IM ONE (12:44)
[2018-10-07] MEDS ORDERED: Influenza Vaccine 60 mcg/0.5 mL SYR (4YR UP) IM ONE (12:44)
[2018-10-07] MEDS: Piperacill/Tazo 3.375gm in Dex 3.375 GM/50 ML BAG IVPB SCH ×2 (13:59→21:32)
[2018-10-07 15:48] VITALS: RESP 20
[2018-10-07] MEDS: Digoxin 125 mcg (0.125 mg) Tab PO SCH (17:12)
--- NOTE | 2018-10-07 18:03 | CP.PCM.HP ---
Past Patient History - Infectious Disease Hx of Infectious Diseases: None - Past Medical History & Family History Past Medical History?: Yes - Past Social History Smoking Status: Never Smoked - CARDIAC Hx Congestive Heart Failure: Yes (A-fib) Hx Hypercholesterolemia: Yes Hx Hypertension: Yes - PULMONARY Hx Respiratory Disorders: No Hx Tuberculosis: No - NEUROLOGICAL Hx Seizures: No - HEENT Hx HEENT Problems: No - RENAL Hx Chronic Kidney Disease: No - ENDOCRINE/METABOLIC Hx Diabetes Mellitus Type 2: Yes - HEMATOLOGICAL/ONCOLOGICAL Hx Anemia: Yes Hx Human Immunodeficiency Virus (HIV): No - INTEGUMENTARY Hx Dermatological Problems: Yes Hx Melanoma: Yes (Malignant Melonoma removed 1996) - MUSCULOSKELETAL/RHEUMATOLOGICAL Hx Falls: Yes - GASTROINTESTINAL Hx Gastrointestinal Disorders: No - GENITOURINARY/GYNECOLOGICAL Hx Sexually Transmitted Disorders: No - PSYCHIATRIC Hx Substance Use: Yes - SURGICAL HISTORY Hx Surgeries: Yes Hx Musculoskeletal Surgery: Yes (BILATERAL KNEE, CARPAL TUNNEL) Other/Comment: Umbilical Hernia Repair. B/L Knee Artho,. lymph nodes removeded from jamal axilla - ANESTHESIA Hx Anesthesia: Yes Hx Anesthesia Reactions: No Hx Malignant Hyperthermia: No Meds Allergies/Adverse Reactions: Allergies Allergy/AdvReac Type Severity Reaction Status Date / Time No Known Allergies Allergy Verified 10/01/18 23:18 Physical Exam - Constitutional Appears: Well - Head Exam Head Exam: ATRAUMATIC, NORMAL INSPECTION, NORMOCEPHALIC - Eye Exam Eye Exam: EOMI, Normal appearance, PERRL Pupil Exam: NORMAL ACCOMODATION, PERRL - ENT Exam ENT Exam: Mucous Membranes Moist, Normal Exam - Neck Exam Neck exam: Positive for: Normal Inspection - Respiratory Exam Respiratory Exam: Decreased Breath Sounds - Cardiovascular Exam Cardiovascular Exam: REGULAR RHYTHM, +S1, +S2 - GI/Abdominal Exam GI & Abdominal Exam: Diminished Bowel Sounds, Soft - Rectal Exam Rectal Exam: Deferred Results - Vital Signs Recent Vital Signs: Last Vital Signs Temp 98.7 F 10/07/18 15:00 Pulse 72 10/07/18 15:00 Resp 20 10/07/18 15:00 BP 145/79 10/07/18 15:00 Pulse Ox 96 10/07/18 15:00 - Labs Result Diagrams: 10/07/18 03:05 10/07/18 03:05 Labs: Laboratory Results - last 24 hr 10/07/18 10/07/18 10/07/18 03:05 03:05 03:05 WBC 6.1 RBC 3.71 L Hgb 10.3 L Hct 32.2 L MCV 87.0 MCH 27.9 MCHC 32.1 L RDW 20.6 H Plt Count 265 MPV 7.7 Neut % (Auto) 69.3 Lymph % (Auto) 14.5 L [place] % (Auto) 10.9 H Eos % (Auto) 3.7 Baso % (Auto) 1.6 Neut # (Auto) 4.2 Lymph # (Auto) 0.9 L [place] # (Auto) 0.7 Eos # (Auto) 0.2 Baso # (Auto) 0.1 Sodium 138 Potassium 5.0 Chloride 106 Carbon Dioxide 26 Anion Gap 11 BUN 18 Creatinine 0.9 Est GFR ( Amer) > 60 Est GFR (Non-Af Amer) > 60 POC Glucose (mg/dL) Random Glucose 106 Calcium 8.7 Total Bilirubin 0.8 AST 47 ALT 11 L D Alkaline Phosphatase 102 Total Protein 7.3 Albumin 3.9 Globulin 3.4 Albumin/Globulin Ratio 1.1 Urine Opiates Screen Positive H Urine Methadone Screen Negative Ur Barbiturates Screen Negative Ur Phencyclidine Scrn Negative Ur Amphetamines Screen Negative U Benzodiazepines Scrn Negative U Oth Cocaine Metabols Negative U Cannabinoids Screen Negative 10/07/18 10/07/18 10/07/18 07:12 11:02 16:02 WBC RBC Hgb Hct MCV MCH MCHC RDW Plt Count MPV Neut % (Auto) Lymph % (Auto) [place] % (Auto) Eos % (Auto) Baso % (Auto) Neut # (Auto) Lymph # (Auto) [place] # (Auto) Eos # (Auto) Baso # (Auto) Sodium Potassium Chloride Carbon Dioxide Anion Gap BUN Creatinine Est GFR ( Amer) Est GFR (Non-Af Amer) POC Glucose (mg/dL) 107 179 H 186 H Random Glucose Calcium Total Bilirubin AST ALT Alkaline Phosphatase Total Protein Albumin Globulin Albumin/Globulin Ratio Urine Opiates Screen Urine Methadone Screen Ur Barbiturates Screen Ur Phencyclidine Scrn Ur Amphetamines Screen U Benzodiazepines Scrn U Oth Cocaine Metabols U Cannabinoids Screen
[2018-10-08] MEDS: Piperacill/Tazo 3.375gm in Dex 3.375 GM/50 ML BAG IVPB SCH ×3 (06:03→21:16)
[2018-10-08 07:20] LABS: BASO # 0.1 K/uL (0.0-0.2); BASO % 1.1 % (0.0-2.0); EOS # 0.1 K/uL (0.0-0.7); EOS % 2.6 % (0.0-4.0); LYMPH % 17.1 % (20.0-40.0); MEAN CELL VOLUME 86.5 fL (80.0-94.0); MEAN CORPUSCULAR HEMOGLOBIN 28.3 pg (27.0-31.0); MEAN CORPUSCULAR HGB CONC 32.8 g/dL (33.0-37.0); MEAN PLATELET VOLUME 7.8 fL (7.2-11.7); MONO # 0.5 K/uL (0.0-0.8); MONO % 8.6 % (0.0-10.0); NEUT % 70.6 % (50.0-75.0); RBC 3.54 Mil/uL (4.40-5.90); RED CELL DISTRIBUTION WIDTH 21.1 % (11.5-14.5); WHITE BLOOD COUNT 5.7 K/uL (4.8-10.8)
--- NOTE | 2018-10-08 07:21 | CP.PCM.PN ---
Subjective - Date & Time of Evaluation Date of Evaluation: 10/08/18 Time of Evaluation: 07:20 - Subjective Subjective: Medicine Progress Note - Dr Nico Forrest's service Patient seen and examined at bedside. Per nursing no acute events overnight. Patient is doing well, tolerating diet. Offers no complaints at this time. Objective - Vital Signs/Intake and Output Vital Signs (last 24 hours): Temp Pulse Resp BP Pulse Ox 98.2 F 105 H 20 157/92 H 96 10/08/18 00:00 10/08/18 00:00 10/08/18 00:00 10/08/18 00:00 10/08/18 00:00 Intake and Output: 10/08/18 10/08/18 06:59 18:59 Intake Total 650 Output Total 1150 Balance -500 - Medications Medications: Current Medications Al Hydrox/Mg Hydrox/Simethicone (Maalox 30 Ml) 30 ml PO TID PRN PRN Reason: Indigestion / Heartburn Clonidine HCl (Catapres) 0.1 mg PO Q4 PRN PRN Reason: COWS Score More or Equal to 5 Dextrose (Dextrose 50% Inj) 0 ml IV STAT PRN; Protocol PRN Reason: Hypoglycemia Protocol Dextrose (Glutose 15) 0 gm PO ONCE PRN; Protocol PRN Reason: Hypoglycemia Protocol Dicyclomine HCl (Bentyl) 10 mg PO Q6 PRN PRN Reason: Muscle spasm Digoxin (Digoxin) 0.125 mg PO DAILY@1800 [facility] Last Admin: 10/07/18 17:12 Dose: 0.125 mg Diltiazem HCl (Cardizem Cd) 360 mg PO Q24H [facility] Last Admin: 10/07/18 10:31 Dose: 360 mg Enoxaparin Sodium (Lovenox) 40 mg SC DAILY [facility] Last Admin: 10/07/18 10:30 Dose: 40 mg Gabapentin (Neurontin) 800 mg PO BID [facility] Last Admin: 10/07/18 17:09 Dose: 800 mg Glucagon (Glucagen Diagnostic Kit) 0 mg IM STAT PRN; Protocol PRN Reason: Hypoglycemia Protocol Dextrose (Dextrose 5% In Water 1000 Ml) 1,000 mls @ 0 mls/hr IV .Q0M PRN; Protocol PRN Reason: Hypoglycemia Protocol Piperacillin Sod/Tazobactam Sod (Zosyn 3.375 Gm Iv Premix) 3.375 gm in 50 mls @ 100 mls/hr IVPB Q8 [facility]; Protocol Last Admin: 10/08/18 06:03 Dose: 100 mls/hr Vancomycin HCl 1 gm/ Sodium (Chloride) 250 mls @ 167 mls/hr IVPB Q12H [facility]; Protocol Last Admin: 10/08/18 00:02 Dose: 167 mls/hr Insulin Aspart (Novolog) 0 unit SC ACHS [facility]; Protocol Last Admin: 10/07/18 21:33 Dose: Not Given Lisinopril (Zestril) 40 mg PO DAILY [facility] Last Admin: 10/07/18 10:30 Dose: 40 mg Loperamide HCl (Imodium) 2 mg PO Q8 PRN PRN Reason: Diarrhea Lorazepam (Ativan) 1 mg PO Q6 PRN PRN Reason: Agitation Last Admin: 10/08/18 06:50 Dose: 1 mg Metformin HCl (Glucophage) 1,000 mg PO BIDCC [facility] Last Admin: 10/07/18 17:09 Dose: 1,000 mg Methadone HCl (Methadone) 20 mg PO Q24H [facility]; Taper Stop: 10/11/18 10:29 Last Admin: 10/07/18 10:40 Dose: 20 mg Ondansetron HCl (Zofran Tab) 4 mg PO Q8 PRN PRN Reason: Nausea/Vomiting Pseudoephedrine HCl (Sudafed Tab) 60 mg PO QID PRN PRN Reason: Nasal/Sinus Congestion Temazepam (Restoril) 30 mg PO HS PRN PRN Reason: Insomnia Last Admin: 10/07/18 21:29 Dose: 30 mg - Labs Labs: 10/07/18 03:05 10/07/18 03:05 - Additional Findings Additional findings: - Constitutional Appears: Non-toxic, No Acute Distress - Head Exam Head Exam: ATRAUMATIC, NORMAL INSPECTION, NORMOCEPHALIC - Eye Exam Eye Exam: EOMI. absent: Scleral icterus - ENT Exam ENT Exam: Mucous Membranes Moist - Neck Exam Neck Exam: Normal Inspection - Respiratory Exam Respiratory Exam: Clear to Ausculation Bilateral, NORMAL BREATHING PATTERN. absent: Accessory Muscle Use - Cardiovascular Exam Cardiovascular Exam: RRR, +S1, +S2. absent: Murmur - GI/Abdominal Exam GI & Abdominal Exam: Soft, Normal Bowel Sounds. absent: Tenderness - Extremities Exam Extremities Exam: Normal Capillary Refill Additional comments: Peripheral lower extremity edema with cellulitis, ulcerations and dry gangrene to some toes, left heel chronic pressure ulcer - Neurological Exam Neurological Exam: Alert, Awake, Oriented x3 - Psychiatric Exam Psychiatric exam: Normal Affect, Normal Mood - Skin Additional comments: Numerous regions of ecchymosis in b/l upper ext. Assessment and Plan - Assessment and Plan (Free Text) Assessment: 68 year old male with past medical history of diabetes mellitus, hypertension, atrial fibrillation (on Xarelto), normocytic anemia, peripheral neuropathy, heroin abuse Peripheral Arterial Disease and B/L non-healing wounds returns after leaving AMA for evaluation and treatment of B/L non-healing heel wounds, PAD, and anemia. Plan: Peripheral Arterial Disease, with bilateral non-healing heel wounds -Patient is s/p angiogram -Vascular on Consult (Dr. Summers), help appreciated -Per Vascular, no intervention needed at this time -Antibiotics: Zosyn 3.375mg Q8H [facility], Vancomycin 1gm Q12H -Wound care on consult -Podiatry on consult, help appreciated Heroin abuse -Started on Methadone 15mg daily -Clonidine 0.1mg PO Q4H prn, Bentyl 10mg Q6H prn, Ativan 1mg PO Q6H prn -Psych on consult, help appreciated Diabetes Mellitus -Metformin 1000mg PO BID -Medium Dosed Insulin Sliding Scale Hypertension -Lisinopril 40mg PO daily Afib, rate controlled -Digoxin 0.125mg PO Daily -Xarelto 20mg PO Daily -Cardizem 360mg PO Daily Normocytic Anemia (Stable) -Hemoglobin 10.0 at this time -Patient needs outpatient GI workup Insomnia -Restoril 30mg PO HS PRN Peripheral Neruopathy -Gabapentin 800mg PO BID Frequent falls -CT head 09/25: Discrete subcortical infarct right posterior temporoparietal w atershed zone. Minor chronic periventricular white matter ischemic changes with a few scattered more discrete deep and subcortical. Note that a small hyperacute infarct cannot be excluded on this study. Consider follow-up MRI if further evaluation is required. [id number] generalized volume loss (see full report) -Continue PT/OT Vitamin B12 deficiency Cyanocobalamin 100mg PO Daily GI/DVT ppx: -Lovenox 40mg SC daily -No GI ppx indicated at this time Dispo: Continue IV antibiotics. Podiatry on consult. F/U recommendations. Plan discussed with Dr Nico Schuster DO PGY-2
[2018-10-08 07:54] LABS: ALB/GLOB RATIO 1.1 (1.0-2.1); ALBUMIN 3.5 g/dL (3.5-5.0); ALT/SGPT 21 U/L (21-72); AST/SGOT 32 U/L (17-59); BLOOD UREA NITROGEN 13 mg/dL (9-20); CALCIUM 8.4 mg/dl (8.6-10.4); GFR NON-AFRICAN AMERICAN > 60
[2018-10-08] MEDS: diltiaZEM 180 mg/24 Hours CD Cap PO SCH (08:22)
[2018-10-08] MEDS: Magnesium Sulfate 1 gm in D5W 1 GM/100 ML BAG IVPB SCH ×3 (08:46→11:04)
[2018-10-08] MEDS: Enoxaparin 40 mg Syringe SC SCH (09:47)
[2018-10-08] MEDS: (Novolog) Insulin Aspart, Recombinant 100 u/ml 10 ml vial SC SCH ×4 (10:37→21:17)
[2018-10-08] MEDS: Digoxin 125 mcg (0.125 mg) Tab PO SCH (17:25)
[2018-10-08 17:27] VITALS: PULSE 70
--- NOTE | 2018-10-08 18:02 | CP.PCM.CON ---
History of Present Illness - History of Present Illness History of Present Illness: 68 year diabetic male presents with bilateral foot ulcerations and pain. He states that his pain is primarily located on his toes and heels and has been going on for 3 months. He rates the pain a 7/10, worse with ambulation. H Patient is status post angiogram with patent vessels. IV antibiotic ordered pending cultures PMHx: Diabetes, hyperlipidemia, HTN, malignant melanoma PSHx: Bilateral knee replacements (2015), Umbilical hernia (2007), malignant melanoma removal 1994 Allergies: NKDA Medications: Metformin, Lantis, Gabapentin, Atorvastatin, Lisinopril, diltiazem Social: Admits to using 10bags of heroin/day (last used yesterday). Denies smoking, (+) occasional alcohol use Past Patient History - Infectious Disease Hx of Infectious Diseases: None - Past Medical History & Family History Past Medical History?: Yes - Past Social History Smoking Status: Never Smoked - CARDIAC Hx Congestive Heart Failure: Yes (A-fib) Hx Hypercholesterolemia: Yes Hx Hypertension: Yes - PULMONARY Hx Respiratory Disorders: No Hx Tuberculosis: No - NEUROLOGICAL Hx Seizures: No - HEENT Hx HEENT Problems: No - RENAL Hx Chronic Kidney Disease: No - ENDOCRINE/METABOLIC Hx Diabetes Mellitus Type 2: Yes - HEMATOLOGICAL/ONCOLOGICAL Hx Anemia: Yes Hx Human Immunodeficiency Virus (HIV): No - INTEGUMENTARY Hx Dermatological Problems: Yes Hx Melanoma: Yes (Malignant Melonoma removed 1996) - MUSCULOSKELETAL/RHEUMATOLOGICAL Hx Falls: Yes - GASTROINTESTINAL Hx Gastrointestinal Disorders: No - GENITOURINARY/GYNECOLOGICAL Hx Sexually Transmitted Disorders: No - PSYCHIATRIC Hx Substance Use: Yes - SURGICAL HISTORY Hx Surgeries: Yes Hx Musculoskeletal Surgery: Yes (BILATERAL KNEE, CARPAL TUNNEL) Other/Comment: Umbilical Hernia Repair. B/L Knee Artho,. lymph nodes removeded from jamal axilla - ANESTHESIA Hx Anesthesia: Yes Hx Anesthesia Reactions: No Hx Malignant Hyperthermia: No Meds Allergies/Adverse Reactions: Allergies Allergy/AdvReac Type Severity Reaction Status Date / Time No Known Allergies Allergy Verified 10/01/18 23:18 - Medications Medications: Current Medications Al Hydrox/Mg Hydrox/Simethicone (Maalox 30 Ml) 30 ml PO TID PRN PRN Reason: Indigestion / Heartburn Clonidine HCl (Catapres) 0.1 mg PO Q4 PRN PRN Reason: COWS Score More or Equal to 5 Dextrose (Dextrose 50% Inj) 0 ml IV STAT PRN; Protocol PRN Reason: Hypoglycemia Protocol Dextrose (Glutose 15) 0 gm PO ONCE PRN; Protocol PRN Reason: Hypoglycemia Protocol Dicyclomine HCl (Bentyl) 10 mg PO Q6 PRN PRN Reason: Muscle spasm Digoxin (Digoxin) 0.125 mg PO DAILY@1800 [facility] Last Admin: 10/07/18 17:12 Dose: 0.125 mg Diltiazem HCl (Cardizem Cd) 360 mg PO Q24H [facility] Last Admin: 10/07/18 10:31 Dose: 360 mg Enoxaparin Sodium (Lovenox) 40 mg SC DAILY [facility] Last Admin: 10/07/18 10:30 Dose: 40 mg Gabapentin (Neurontin) 800 mg PO BID [facility] Last Admin: 10/07/18 17:09 Dose: 800 mg Glucagon (Glucagen Diagnostic Kit) 0 mg IM STAT PRN; Protocol PRN Reason: Hypoglycemia Protocol Dextrose (Dextrose 5% In Water 1000 Ml) 1,000 mls @ 0 mls/hr IV .Q0M PRN; Protocol PRN Reason: Hypoglycemia Protocol Piperacillin Sod/Tazobactam Sod (Zosyn 3.375 Gm Iv Premix) 3.375 gm in 50 mls @ 100 mls/hr IVPB Q8 [facility]; Protocol Last Admin: 10/07/18 21:32 Dose: 100 mls/hr Insulin Aspart (Novolog) 0 unit SC ACHS [facility]; Protocol Last Admin: 10/07/18 21:33 Dose: Not Given Lisinopril (Zestril) 40 mg PO DAILY [facility] Last Admin: 10/07/18 10:30 Dose: 40 mg Loperamide HCl (Imodium) 2 mg PO Q8 PRN PRN Reason: Diarrhea Lorazepam (Ativan) 1 mg PO Q6 PRN PRN Reason: Agitation Last Admin: 10/07/18 16:15 Dose: 1 mg Metformin HCl (Glucophage) [facility] Last Admin: 10/07/18 17:09 Dose: 1,000 mg Methadone HCl (Methadone) 20 mg PO Q24H [facility]; Taper Stop: 10/11/18 10:29 Last Admin: 10/07/18 10:40 Dose: 20 mg Ondansetron HCl (Zofran Tab) 4 mg PO Q8 PRN PRN Reason: Nausea/Vomiting Pseudoephedrine HCl (Sudafed Tab) 60 mg PO QID PRN PRN Reason: Nasal/Sinus Congestion Temazepam (Restoril) 30 mg PO HS PRN PRN Reason: Insomnia Last Admin: 10/07/18 21:29 Dose: 30 mg Results - Vital Signs Recent Vital Signs: Last Vital Signs Temp 98.7 F 10/07/18 15:00 Pulse 72 10/07/18 15:00 Resp 20 10/07/18 15:00 BP 145/79 10/07/18 15:00 Pulse Ox 96 10/07/18 15:00 - Labs Result Diagrams: 10/07/18 03:05 10/07/18 03:05 Labs: Laboratory Results - last 24 hr 10/07/18 10/07/18 10/07/18 03:05 03:05 03:05 WBC 6.1 RBC 3.71 L Hgb 10.3 L Hct 32.2 L MCV 87.0 MCH 27.9 MCHC 32.1 L RDW 20.6 H Plt Count 265 MPV 7.7 Neut % (Auto) 69.3 Lymph % (Auto) 14.5 L [place] % (Auto) 10.9 H Eos % (Auto) 3.7 Baso % (Auto) 1.6 Neut # (Auto) 4.2 Lymph # (Auto) 0.9 L [place] # (Auto) 0.7 Eos # (Auto) 0.2 Baso # (Auto) 0.1 Sodium 138 Potassium 5.0 Chloride 106 Carbon Dioxide 26 Anion Gap 11 BUN 18 Creatinine 0.9 Est GFR ( Amer) > 60 Est GFR (Non-Af Amer) > 60 POC Glucose (mg/dL) Random Glucose 106 Calcium 8.7 Total Bilirubin 0.8 AST 47 ALT 11 L D Alkaline Phosphatase 102 Total Protein 7.3 Albumin 3.9 Globulin 3.4 Albumin/Globulin Ratio 1.1 Urine Opiates Screen Positive H Urine Methadone Screen Negative Ur Barbiturates Screen Negative Ur Phencyclidine Scrn Negative Ur Amphetamines Screen Negative U Benzodiazepines Scrn Negative U Oth Cocaine Metabols Negative U Cannabinoids Screen Negative 10/07/18 10/07/18 10/07/18 07:12 11:02 16:02 WBC RBC Hgb Hct MCV MCH MCHC RDW Plt Count MPV Neut % (Auto) Lymph % (Auto) [place] % (Auto) Eos % (Auto) Baso % (Auto) Neut # (Auto) Lymph # (Auto) [place] # (Auto) Eos # (Auto) Baso # (Auto) Sodium Potassium Chloride Carbon Dioxide Anion Gap BUN Creatinine Est GFR ( Amer) Est GFR (Non-Af Amer) POC Glucose (mg/dL) 107 179 H 186 H Random Glucose Calcium Total Bilirubin AST ALT Alkaline Phosphatase Total Protein Albumin Globulin Albumin/Globulin Ratio Urine Opiates Screen Urine Methadone Screen Ur Barbiturates Screen Ur Phencyclidine Scrn Ur Amphetamines Screen U Benzodiazepines Scrn U Oth Cocaine Metabols U Cannabinoids Screen 10/07/18 21:01 WBC RBC Hgb Hct MCV MCH MCHC RDW Plt Count MPV Neut % (Auto) Lymph % (Auto) [place] % (Auto) Eos % (Auto) Baso % (Auto) Neut # (Auto) Lymph # (Auto) [place] # (Auto) Eos # (Auto) Baso # (Auto) Sodium Potassium Chloride Carbon Dioxide Anion Gap BUN Creatinine Est GFR ( Amer) Est GFR (Non-Af Amer) POC Glucose (mg/dL) 183 H Random Glucose Calcium Total Bilirubin AST ALT Alkaline Phosphatase Total Protein Albumin Globulin Albumin/Globulin Ratio Urine Opiates Screen Urine Methadone Screen Ur Barbiturates Screen Ur Phencyclidine Scrn Ur Amphetamines Screen U Benzodiazepines Scrn U Oth Cocaine Metabols U Cannabinoids Screen
--- NOTE | 2018-10-08 18:02 | CP.PCM.CON ---
History of Present Illness - History of Present Illness History of Present Illness: 68 year diabetic male presents with bilateral foot ulcerations and pain. He states that his pain is primarily located on his toes and heels and has been going on for 3 months. He rates the pain a 7/10, worse with ambulation. H Patient is status post angiogram with patent vessels. IV antibiotic ordered pending cultures PMHx: Diabetes, hyperlipidemia, HTN, malignant melanoma PSHx: Bilateral knee replacements (2015), Umbilical hernia (2007), malignant melanoma removal 1994 Allergies: NKDA Medications: Metformin, Lantis, Gabapentin, Atorvastatin, Lisinopril, diltiazem Social: Admits to using 10bags of heroin/day (last used yesterday). Denies smoking, (+) occasional alcohol use Past Patient History - Infectious Disease Hx of Infectious Diseases: None - Past Medical History & Family History Past Medical History?: Yes - Past Social History Smoking Status: Never Smoked - CARDIAC Hx Congestive Heart Failure: Yes (A-fib) Hx Hypercholesterolemia: Yes Hx Hypertension: Yes - PULMONARY Hx Respiratory Disorders: No Hx Tuberculosis: No - NEUROLOGICAL Hx Seizures: No - HEENT Hx HEENT Problems: No - RENAL Hx Chronic Kidney Disease: No - ENDOCRINE/METABOLIC Hx Diabetes Mellitus Type 2: Yes - HEMATOLOGICAL/ONCOLOGICAL Hx Anemia: Yes Hx Human Immunodeficiency Virus (HIV): No - INTEGUMENTARY Hx Dermatological Problems: Yes Hx Melanoma: Yes (Malignant Melonoma removed 1996) - MUSCULOSKELETAL/RHEUMATOLOGICAL Hx Falls: Yes - GASTROINTESTINAL Hx Gastrointestinal Disorders: No - GENITOURINARY/GYNECOLOGICAL Hx Sexually Transmitted Disorders: No - PSYCHIATRIC Hx Substance Use: Yes - SURGICAL HISTORY Hx Surgeries: Yes Hx Musculoskeletal Surgery: Yes (BILATERAL KNEE, CARPAL TUNNEL) Other/Comment: Umbilical Hernia Repair. B/L Knee Artho,. lymph nodes removeded from jamal axilla - ANESTHESIA Hx Anesthesia: Yes Hx Anesthesia Reactions: No Hx Malignant Hyperthermia: No Meds Allergies/Adverse Reactions: Allergies Allergy/AdvReac Type Severity Reaction Status Date / Time No Known Allergies Allergy Verified 10/01/18 23:18 - Medications Medications: Current Medications Al Hydrox/Mg Hydrox/Simethicone (Maalox 30 Ml) 30 ml PO TID PRN PRN Reason: Indigestion / Heartburn Clonidine HCl (Catapres) 0.1 mg PO Q4 PRN PRN Reason: COWS Score More or Equal to 5 Dextrose (Dextrose 50% Inj) 0 ml IV STAT PRN; Protocol PRN Reason: Hypoglycemia Protocol Dextrose (Glutose 15) 0 gm PO ONCE PRN; Protocol PRN Reason: Hypoglycemia Protocol Dicyclomine HCl (Bentyl) 10 mg PO Q6 PRN PRN Reason: Muscle spasm Digoxin (Digoxin) 0.125 mg PO DAILY@1800 [facility] Last Admin: 10/08/18 17:25 Dose: 0.125 mg Diltiazem HCl (Cardizem Cd) 360 mg PO Q24H [facility] Last Admin: 10/08/18 08:22 Dose: 360 mg Enoxaparin Sodium (Lovenox) 40 mg SC DAILY [facility] Last Admin: 10/08/18 09:47 Dose: 40 mg Gabapentin (Neurontin) 800 mg PO BID [facility] Last Admin: 10/08/18 17:26 Dose: 800 mg Glucagon (Glucagen Diagnostic Kit) 0 mg IM STAT PRN; Protocol PRN Reason: Hypoglycemia Protocol Dextrose (Dextrose 5% In Water 1000 Ml) 1,000 mls @ 0 mls/hr IV .Q0M PRN; Protocol PRN Reason: Hypoglycemia Protocol Piperacillin Sod/Tazobactam Sod (Zosyn 3.375 Gm Iv Premix) 3.375 gm in 50 mls @ 100 mls/hr IVPB Q8 [facility]; Protocol Last Admin: 10/08/18 13:43 Dose: 100 mls/hr Vancomycin HCl 1 gm/ Sodium (Chloride) 250 mls @ 167 mls/hr IVPB Q12H [facility]; Protocol Last Admin: 10/08/18 11:57 Dose: 167 mls/hr Insulin Aspart (Novolog) 0 unit SC ACHS [facility]; Protocol Last Admin: 10/08/18 17:26 Dose: 2 unit Lisinopril (Zestril) 40 mg PO DAILY [facility] Last Admin: 10/08/18 09:48 Dose: 40 mg Loperamide HCl (Imodium) 2 mg PO Q8 PRN PRN Reason: Diarrhea Lorazepam (Ativan) 1 mg PO Q6 PRN PRN Reason: Agitation Last Admin: 10/08/18 13:41 Dose: 1 mg Metformin [facility] ([facility]) [facility] Last Admin: 10/08/18 17:26 Dose: 1,000 mg Methadone HCl (Methadone) 15 mg PO Q24H [facility]; Taper Stop: 10/11/18 10:29 Last Admin: 10/08/18 09:49 Dose: 15 mg Nystatin (Nystop Topical Powder) 0 applic TOP BID [facility] Last Admin: 10/08/18 17:45 Dose: 1 applic Ondansetron HCl (Zofran Tab) 4 mg PO Q8 PRN PRN Reason: Nausea/Vomiting Pseudoephedrine HCl (Sudafed Tab) 60 mg PO QID PRN PRN Reason: Nasal/Sinus Congestion Temazepam (Restoril) 30 mg PO HS PRN PRN Reason: Insomnia Last Admin: 10/07/18 21:29 Dose: 30 mg Results - Vital Signs Recent Vital Signs: Last Vital Signs Temp 98.7 F 10/08/18 15:00 Pulse 66 10/08/18 15:00 Resp 20 10/08/18 15:00 BP 163/83 H 10/08/18 15:00 Pulse Ox 96 10/08/18 15:00 - Labs Result Diagrams: 10/08/18 06:57 10/08/18 06:57 Labs: Laboratory Results - last 24 hr 10/07/18 10/08/18 10/08/18 21:01 06:57 06:57 WBC 5.7 RBC 3.54 L Hgb 10.0 L Hct 30.6 L MCV 86.5 MCH 28.3 MCHC 32.8 L RDW 21.1 H Plt Count 240 MPV 7.8 Neut % (Auto) 70.6 Lymph % (Auto) 17.1 L Eaton % (Auto) 8.6 Eos % (Auto) 2.6 Baso % (Auto) 1.1 Neut # (Auto) 4.0 Lymph # (Auto) 1.0 Eaton # (Auto) 0.5 Eos # (Auto) 0.1 Baso # (Auto) 0.1 Sodium 137 Potassium 3.7 Chloride 102 Carbon Dioxide 27 Anion Gap 11 BUN 13 Creatinine 1.0 Est GFR ( Amer) > 60 Est GFR (Non-Af Amer) > 60 POC Glucose (mg/dL) 183 H Random Glucose 112 H Calcium 8.4 L Phosphorus 3.0 Magnesium 1.1 L Total Bilirubin 0.7 AST 32 ALT 21 D Alkaline Phosphatase 105 Total Protein 6.6 Albumin 3.5 Globulin 3.2 Albumin/Globulin Ratio 1.1 10/08/18 10/08/18 10/08/18 07:35 11:45 16:21 WBC RBC Hgb Hct MCV MCH MCHC RDW Plt Count MPV Neut % (Auto) Lymph % (Auto) Eaton % (Auto) Eos % (Auto) Baso % (Auto) Neut # (Auto) Lymph # (Auto) Eaton # (Auto) Eos # (Auto) Baso # (Auto) Sodium Potassium Chloride Carbon Dioxide Anion Gap BUN Creatinine Est GFR ( Amer) Est GFR (Non-Af Amer) POC Glucose (mg/dL) 112 H 182 H 204 H Random Glucose Calcium Phosphorus Magnesium Total Bilirubin AST ALT Alkaline Phosphatase Total Protein Albumin Globulin Albumin/Globulin Ratio
--- NOTE | 2018-10-08 19:09 | CP.PCM.PN ---
Subjective - Date & Time of Evaluation Date of Evaluation: 10/08/18 Time of Evaluation: 08:00 - Subjective Subjective: clinically same Objective - Vital Signs/Intake and Output Vital Signs (last 24 hours): Temp Pulse Resp BP Pulse Ox 98.7 F 66 20 163/83 H 96 10/08/18 15:00 10/08/18 15:00 10/08/18 15:00 10/08/18 15:00 10/08/18 15:00 Intake and Output: 10/08/18 10/09/18 18:59 06:59 Intake Total 1250 Output Total 300 Balance 950 - Medications Medications: Current Medications Al Hydrox/Mg Hydrox/Simethicone (Maalox 30 Ml) 30 ml PO TID PRN PRN Reason: Indigestion / Heartburn Clonidine HCl (Catapres) 0.1 mg PO Q4 PRN PRN Reason: COWS Score More or Equal to 5 Dextrose (Dextrose 50% Inj) 0 ml IV STAT PRN; Protocol PRN Reason: Hypoglycemia Protocol Dextrose (Glutose 15) 0 gm PO ONCE PRN; Protocol PRN Reason: Hypoglycemia Protocol Dicyclomine HCl (Bentyl) 10 mg PO Q6 PRN PRN Reason: Muscle spasm Digoxin (Digoxin) 0.125 mg PO DAILY@1800 [facility] Last Admin: 10/08/18 17:25 Dose: 0.125 mg Diltiazem HCl (Cardizem Cd) 360 mg PO Q24H [facility] Last Admin: 10/08/18 08:22 Dose: 360 mg Enoxaparin Sodium (Lovenox) 40 mg SC DAILY [facility] Last Admin: 10/08/18 09:47 Dose: 40 mg Gabapentin (Neurontin) 800 mg PO BID [facility] Last Admin: 10/08/18 17:26 Dose: 800 mg Glucagon (Glucagen Diagnostic Kit) 0 mg IM STAT PRN; Protocol PRN Reason: Hypoglycemia Protocol Dextrose (Dextrose 5% In Water 1000 Ml) 1,000 mls @ 0 mls/hr IV .Q0M PRN; Protocol PRN Reason: Hypoglycemia Protocol Piperacillin Sod/Tazobactam Sod (Zosyn 3.375 Gm Iv Premix) 3.375 gm in 50 mls @ 100 mls/hr IVPB Q8 [facility]; Protocol Last Admin: 10/08/18 13:43 Dose: 100 mls/hr Vancomycin HCl 1 gm/ Sodium (Chloride) 250 mls @ 167 mls/hr IVPB Q12H [facility]; Protocol Last Admin: 10/08/18 11:57 Dose: 167 mls/hr Insulin Aspart (Novolog) 0 unit SC ACHS [facility]; Protocol Last Admin: 10/08/18 17:26 Dose: 2 unit Lisinopril (Zestril) 40 mg PO DAILY [facility] Last Admin: 10/08/18 09:48 Dose: 40 mg Loperamide HCl (Imodium) 2 mg PO Q8 PRN PRN Reason: Diarrhea Lorazepam (Ativan) 1 mg PO Q6 PRN PRN Reason: Agitation Last Admin: 10/08/18 13:41 Dose: 1 mg Metformin HCl (Glucophage) 1,000 mg PO BIDCC [facility] Last Admin: 10/08/18 17:26 Dose: 1,000 mg Methadone HCl (Methadone) 15 mg PO Q24H [facility]; Taper Stop: 10/11/18 10:29 Last Admin: 10/08/18 09:49 Dose: 15 mg Nystatin (Nystop Topical Powder) 0 applic TOP BID [facility] Last Admin: 10/08/18 17:45 Dose: 1 applic Ondansetron HCl (Zofran Tab) 4 mg PO Q8 PRN PRN Reason: Nausea/Vomiting Pseudoephedrine HCl (Sudafed Tab) 60 mg PO QID PRN PRN Reason: Nasal/Sinus Congestion Temazepam (Restoril) 30 mg PO HS PRN PRN Reason: Insomnia Last Admin: 10/07/18 21:29 Dose: 30 mg - Labs Labs: 10/08/18 06:57 10/08/18 06:57 - Constitutional Appears: Well - Head Exam Head Exam: ATRAUMATIC, NORMAL INSPECTION, NORMOCEPHALIC - Eye Exam Eye Exam: EOMI, Normal appearance, PERRL Pupil Exam: NORMAL ACCOMODATION, PERRL - ENT Exam ENT Exam: Mucous Membranes Moist, Normal Exam - Neck Exam Neck Exam: Full ROM, Normal Inspection. absent: Lymphadenopathy - Respiratory Exam Respiratory Exam: Decreased Breath Sounds - Cardiovascular Exam Cardiovascular Exam: REGULAR RHYTHM, +S1, +S2 - GI/Abdominal Exam GI & Abdominal Exam: Soft, Diminished Bowel Sounds - Rectal Exam Rectal Exam: Deferred
[2018-10-09] MEDS: Piperacill/Tazo 3.375gm in Dex 3.375 GM/50 ML BAG IVPB SCH (06:02)
[2018-10-09] MEDS: (Novolog) Insulin Aspart, Recombinant 100 u/ml 10 ml vial SC SCH ×2 (07:27→11:41)
--- NOTE | 2018-10-09 07:41 | CP.PCM.PN ---
"Subjective - Date & Time of Evaluation Date of Evaluation: 10/09/18 Time of Evaluation: 10:27 - Subjective Subjective: Patient seen and examined at bedside. No overnight events reported. His pain is controlled. he denies any fever, chest pain, SOB, palpitations, abdominal pain, nausea, vomiting, changes in bowel habits or urinary symptoms. Objective - Vital Signs/Intake and Output Vital Signs (last 24 hours): Temp Pulse Resp BP Pulse Ox 98.7 F 69 20 132/65 96 10/09/18 00:00 10/09/18 00:00 10/09/18 00:00 10/09/18 00:00 10/09/18 00:00 Intake and Output: 10/09/18 10/09/18 06:59 18:59 Intake Total 540 Output Total 900 Balance -360 - Medications Medications: Current Medications Al Hydrox/Mg Hydrox/Simethicone (Maalox 30 Ml) 30 ml PO TID PRN PRN Reason: Indigestion / Heartburn Clonidine HCl (Catapres) 0.1 mg PO Q4 PRN PRN Reason: COWS Score More or Equal to 5 Dextrose (Dextrose 50% Inj) 0 ml IV STAT PRN; Protocol PRN Reason: Hypoglycemia Protocol Dextrose (Glutose 15) 0 gm PO ONCE PRN; Protocol PRN Reason: Hypoglycemia Protocol Dicyclomine HCl (Bentyl) 10 mg PO Q6 PRN PRN Reason: Muscle spasm Digoxin (Digoxin) 0.125 mg PO DAILY@1800 [facility] Last Admin: 10/08/18 17:25 Dose: 0.125 mg Diltiazem HCl (Cardizem Cd) 360 mg PO Q24H [facility] Last Admin: 10/08/18 08:22 Dose: 360 mg Enoxaparin Sodium (Lovenox) 40 mg SC DAILY [facility] Last Admin: 10/08/18 09:47 Dose: 40 mg Gabapentin (Neurontin) 800 mg PO BID [facility] Last Admin: 10/08/18 17:26 Dose: 800 mg Glucagon (Glucagen Diagnostic Kit) 0 mg IM STAT PRN; Protocol PRN Reason: Hypoglycemia Protocol Dextrose (Dextrose 5% In Water 1000 Ml) 1,000 mls @ 0 mls/hr IV .Q0M PRN; Protocol PRN Reason: Hypoglycemia Protocol Piperacillin Sod/Tazobactam Sod (Zosyn 3.375 Gm Iv Premix) 3.375 gm in 50 mls @ 100 mls/hr IVPB Q8 [facility]; Protocol Last Admin: 10/09/18 06:02 Dose: 100 mls/hr Vancomycin HCl 1 gm/ Sodium (Chloride) 250 mls @ 167 mls/hr IVPB Q12H [facility]; Protocol Last Admin: 10/09/18 00:14 Dose: 167 mls/hr Insulin Aspart (Novolog) 0 unit SC ACHS [facility]; Protocol Last Admin: 10/09/18 07:27 Dose: Not Given Lisinopril (Zestril) 40 mg PO DAILY [facility] Last Admin: 10/08/18 09:48 Dose: 40 mg Loperamide HCl (Imodium) 2 mg PO Q8 PRN PRN Reason: Diarrhea Lorazepam (Ativan) 1 mg PO Q6 PRN PRN Reason: Agitation Last Admin: 10/09/18 06:02 Dose: 1 mg Metformin HCl (Glucophage) 1,000 mg PO BIDCC [facility] Last Admin: 10/08/18 17:26 Dose: 1,000 mg Methadone HCl (Methadone) 15 mg PO Q24H [facility]; Taper Stop: 10/11/18 10:29 Last Admin: 10/08/18 09:49 Dose: 15 mg Nystatin (Nystop Topical Powder) 0 applic TOP BID [facility] Last Admin: 10/08/18 17:45 Dose: 1 applic Ondansetron HCl (Zofran Tab) 4 mg PO Q8 PRN PRN Reason: Nausea/Vomiting Pseudoephedrine HCl (Sudafed Tab) 60 mg PO QID PRN PRN Reason: Nasal/Sinus Congestion Temazepam (Restoril) 30 mg PO HS PRN PRN Reason: Insomnia Last Admin: 10/08/18 21:17 Dose: 30 mg - Labs Labs: 10/08/18 06:57 10/08/18 06:57 - Additional Findings Additional findings: - Additional Findings Additional findings: - Constitutional Appears: Non-toxic, No Acute Distress - Head Exam Head Exam: ATRAUMATIC, NORMAL INSPECTION, NORMOCEPHALIC - Eye Exam Eye Exam: EOMI. absent: Scleral icterus - ENT Exam ENT Exam: Mucous Membranes Moist - Neck Exam Neck Exam: Normal Inspection - Respiratory Exam Respiratory Exam: Clear to Ausculation Bilateral, NORMAL BREATHING PATTERN. absent: Accessory Muscle Use - Cardiovascular Exam Cardiovascular Exam: Irregular Rhythm, +S1, +S2. absent: Murmur - GI/Abdominal Exam GI & Abdominal Exam: Soft, Normal Bowel Sounds. absent: Tenderness - Extremities Exam Extremities Exam: Normal Capillary Refill Additional comments: Peripheral lower extremity edema with cellulitis, ulcerations and dry gangrene to some toes, b/l Heel Pressure Ulcer (Left draining) - Neurological Exam Neurological Exam: Alert, Awake, Oriented x3 - Psychiatric Exam Psychiatric exam: Normal Affect, Normal Mood - Skin Additional comments: Numerous regions of ecchymosis in b/l upper ext. Assessment and Plan - Assessment and Plan (Free Text) Assessment: 68 year old male with past medical history of diabetes mellitus, hypertension, atrial fibrillation (on Xarelto), normocytic anemia, peripheral neuropathy, heroin abuse Peripheral Arterial Disease and B/L non-healing wounds returns after leaving AMA for evaluation and treatment of B/L non-healing heel wounds, PAD, and anemia. Plan: Peripheral Arterial Disease, with bilateral non-healing heel wounds -B/L Foot X-ray (09/24/18): B/L plantar calcaneal spur incidentally noted. Otherwise unremarkable. -Patient is s/p angiogram -Vascular on Consult (Dr. Summers), help appreciated. Per Vascular, no intervention needed at this time -Wound care on consult -Podiatry on consult, help appreciated -ID on consult, help appreciated. -Vitamin A ordered and PENDING Mgmt: -Antibiotics: Zosyn 3.375mg Q8H IVPB (Started 10/07/18), Vancomycin 1gm Q12H (Started 10/08/18) -Vitamin C 250mg PO Daily | Multivitamins/Multiminerals. -Maintain Total Protein and Albumin Heroin abuse -Started on Methadone 15mg daily -Clonidine 0.1mg PO Q4H prn, Bentyl 10mg Q6H prn, Ativan 1mg PO Q6H prn -Psych on consult, help appreciated Diabetes Mellitus -Metformin 1000mg PO BID -Lantus 10 Units HS, Home dose was 50 Units HS. -Medium Dosed Insulin Sliding Scale -Monitor Sugars Hypertension -Lisinopril 40mg PO daily Afib, rate controlled -Digoxin 0.125mg PO Daily -Xarelto 20mg PO Daily -Cardizem 360mg PO Daily Normocytic Anemia (Stable) -Hemoglobin 10.0 at this time -Patient needs outpatient GI workup Insomnia -Restoril 30mg PO HS PRN Peripheral Neruopathy -Gabapentin 800mg PO BID Frequent falls -CT head 09/25: Discrete subcortical infarct right posterior temporoparietal watershed zone. Minor chronic periventricular white matter ischemic changes with a few scattered more discrete deep and subcortical. Note that a small hyperacute infarct cannot be excluded on this study. Consider follow-up MRI if further evaluation is required. [id number] generalized volume loss (see full report) -Continue PT/OT Vitamin B12 deficiency Cyanocobalamin 100mg PO Daily GI/DVT ppx: -Lovenox 40mg SC daily -No GI ppx indicated at this time Dispo: Patient left AMA. Patient explained the risk of leaving including but not limited to permanent disability and . Also explained the benefits staying. AMA form was signed. Mgmt per Dr Nico Bender, PGY-2"
[2018-10-09 08:30] VITALS: BP 158/90; PULSE 87; TEMP 98.5; O2SAT 99
[2018-10-09] MEDS: diltiaZEM 180 mg/24 Hours CD Cap PO SCH (08:46)
[2018-10-09] MEDS: Enoxaparin 40 mg Syringe SC SCH (10:37)
[2018-10-09] MEDS ORDERED: Multivitamin With Minerals Tab PO SCH (11:00)
[2018-10-09 12:00] LABS: BASO # 0.1 K/uL (0.0-0.2); BASO % 1.4 % (0.0-2.0); EOS # 0.2 K/uL (0.0-0.7); EOS % 2.3 % (0.0-4.0); HEMOGLOBIN 10.7 g/dL (12.0-18.0); LYMPH # 0.7 K/uL (1.0-4.3); MEAN CELL VOLUME 86.4 fL (80.0-94.0); MEAN CORPUSCULAR HEMOGLOBIN 28.4 pg (27.0-31.0); MEAN CORPUSCULAR HGB CONC 32.9 g/dL (33.0-37.0); MEAN PLATELET VOLUME 7.8 fL (7.2-11.7); MONO # 0.5 K/uL (0.0-0.8); MONO % 7.7 % (0.0-10.0); NEUT # 5.4 K/uL (1.8-7.0); NEUT % 78.6 % (50.0-75.0); RBC 3.77 Mil/uL (4.40-5.90); RED CELL DISTRIBUTION WIDTH 21.6 % (11.5-14.5); WHITE BLOOD COUNT 6.8 K/uL (4.8-10.8)
[2018-10-09 12:16] LABS: ALB/GLOB RATIO 1.2 (1.0-2.1); ALBUMIN 3.8 g/dL (3.5-5.0); ALT/SGPT 13 U/L (21-72); AST/SGOT 26 U/L (17-59); BLOOD UREA NITROGEN 10 mg/dL (9-20); GFR NON-AFRICAN AMERICAN > 60
[2018-10-09] MEDS ORDERED: (Lantus) Insulin Glargine, Recombinant SC SCH (22:00)
== END 2018-10-09 12:30 | disposition left against medical advice (07) | DRG 300 ==
LOC: C.ER 01:04 → C.3T 03:55
PROVIDERS: ADMIT Internal Medicine Nephrology; ATTEND Internal Medicine Nephrology
PROC: HZ2ZZZZ Detoxification Services for Substance Abuse Treatment (ICD-10-PCS; principal; 2018-10-08)
DX: E11.52 Type 2 diabetes mellitus with diabetic peripheral angiopathy with gangrene (principal); L03.115 Cellulitis of right lower limb; I96 Gangrene, not elsewhere classified; F11.23 Opioid dependence with withdrawal; L03.116 Cellulitis of left lower limb; E11.621 Type 2 diabetes mellitus with foot ulcer; E11.40 Type 2 diabetes mellitus with diabetic neuropathy, unspecified; Z79.4 Long term (current) use of insulin; L97.529 Non-pressure chronic ulcer of other part of left foot with unspecified severity; L97.519 Non-pressure chronic ulcer of other part of right foot with unspecified severity; I11.0 Hypertensive heart disease with heart failure; I50.9 Heart failure, unspecified; I48.91 Unspecified atrial fibrillation; E78.00 Pure hypercholesterolemia, unspecified; G47.00 Insomnia, unspecified

== ENCOUNTER 2018-10-11 00:08 | Emergency (ER) | payer MEDICARE, MEDICAID ==
[2018-10-11 00:08] VITALS: PULSE 70; BMI 38.4
[2018-10-11 05:18] VITALS: BP 128/78; PULSE 90; RESP 18; TEMP 98.8; O2SAT 97
--- NOTE | 2018-10-11 06:27 | C.PDOC ---
Time Seen by Provider: 10/11/18 01:46 Chief Complaint (Nursing): Headache Past Medical History Vital Signs: Last Vital Signs Temp 98.8 F 10/11/18 05:18 Pulse 90 10/11/18 05:18 Resp 18 10/11/18 05:18 BP 128/78 10/11/18 05:18 Pulse Ox 97 10/11/18 05:18 - Medical History PMH: Anemia, Atrial Fibrillation, CHF (A-fib), Diabetes, Hepatitis, HTN, Hypercholesterolemia, Sleep Apnea Denies: Deep Vein Thrombosis, HIV, Chronic Kidney Disease, Seizures, Sexually Transmitted Disease Surgical History: Denies: Pacemaker - [facility] DETOXIFICATION SERVICES FOR SUBSTANCE ABUSE TREATMENT (10/07/18) DRUG DETOXIFICATION (03/15/15) FLUOROSCOPY OF AORTA, BI LE ART USING L OSM CONTRAST (10/02/18) INDIV PSYCHOTHERAPY FOR SUBSTANCE ABUSE TREATMENT, SUPPORT (09/23/18) INDIV PSYCHOTHERAPY FOR SUBSTANCE ABUSE, COGNITIV BEHAVIORAL (09/23/18) INDIV PSYCHOTHERAPY FOR SUBSTANCE ABUSE, PSYCHOEDUCATION (09/23/18) INSERTION OF INFUSION DEV INTO L BASILIC VEIN, PERC APPROACH (08/30/18) MEDS MGMT FOR SUBSTANCE ABUSE TREATMENT, METHADONE MAINT (07/06/18) TETANUS TOXOID ADMINIST (04/19/15) TRANSFUSE NONAUT RED BLOOD CELLS IN PERIPH VEIN, PERC (09/23/18) ULTRASONOGRAPHY OF LEFT UPPER EXTREMITY VEINS, GUIDANCE (08/30/18) Family History: States: Unknown Family Hx - Social History Hx Tobacco Use: No Hx Alcohol Use: Yes Hx Substance Use: Yes - Immunization History Hx Tetanus Toxoid Vaccination: Yes Hx Influenza Vaccination: Yes Hx Pneumococcal Vaccination: Yes ED Course And Treatment O2 Sat by Pulse Oximetry: 97 Disposition - Disposition Forms: [employer] (Iranian)
--- NOTE | 2018-10-11 06:30 | C.PDOC ---
History Of Present Illness 68 year old male presents to the emergency department status-post falling at home. Patient admits to heroin and alcohol use today, but denies syncope. Patient offers no other physical complaints at this time. He denies neck pain, bleeding, nausea, and vomiting. - HPI Time Seen by Provider: 10/11/18 01:46 Chief Complaint (Nursing): Headache History Per: Patient History/Exam Limitations: no limitations Onset/Duration Of Symptoms: Hrs Injury Occurred (Timing): Just Before Arrival Past Medical History Reviewed: Historical Data, Nursing Documentation, Vital Signs Vital Signs: Last Vital Signs Temp 98.8 F 10/11/18 05:18 Pulse 90 10/11/18 05:18 Resp 18 10/11/18 05:18 BP 128/78 10/11/18 05:18 Pulse Ox 97 10/11/18 06:27 - Medical History PMH: Anemia, Atrial Fibrillation, CHF (A-fib), Diabetes, Hepatitis, HTN, Hypercholesterolemia, Sleep Apnea Denies: Deep Vein Thrombosis, HIV, Chronic Kidney Disease, Seizures, Sexually Transmitted Disease Surgical History: No Surg Hx Denies: Pacemaker - [facility] Procedures DETOXIFICATION SERVICES FOR SUBSTANCE ABUSE TREATMENT (10/07/18) DRUG DETOXIFICATION (03/15/15) FLUOROSCOPY OF AORTA, BI LE ART USING L OSM CONTRAST (10/02/18) INDIV PSYCHOTHERAPY FOR SUBSTANCE ABUSE TREATMENT, SUPPORT (09/23/18) INDIV PSYCHOTHERAPY FOR SUBSTANCE ABUSE, COGNITIV BEHAVIORAL (09/23/18) INDIV PSYCHOTHERAPY FOR SUBSTANCE ABUSE, PSYCHOEDUCATION (09/23/18) INSERTION OF INFUSION DEV INTO L BASILIC VEIN, PERC APPROACH (08/30/18) MEDS MGMT FOR SUBSTANCE ABUSE TREATMENT, METHADONE MAINT (07/06/18) TETANUS TOXOID ADMINIST (04/19/15) TRANSFUSE NONAUT RED BLOOD CELLS IN PERIPH VEIN, PERC (09/23/18) ULTRASONOGRAPHY OF LEFT UPPER EXTREMITY VEINS, GUIDANCE (08/30/18) Family History: States: No Known Family Hx - Social History Hx Tobacco Use: No Hx Alcohol Use: Yes Hx Substance Use: Yes - Immunization History Hx Tetanus Toxoid Vaccination: Yes Hx Influenza Vaccination: Yes Hx Pneumococcal Vaccination: Yes Review Of Systems Except As Marked, All Systems Reviewed And Found Negative. Constitutional: Negative for: Fever, Chills Cardiovascular: Negative for: Chest Pain Respiratory: Negative for: Cough, Shortness of Breath Gastrointestinal: Negative for: Nausea, Vomiting, Abdominal Pain, Diarrhea Psych: Positive for: Other (intoxication) Physical Exam - Physical Exam Appears: Non-toxic, Other (poor hygiene) Skin: Normal Color, Warm, Dry Head: Normacephalic, Laceration (sutured lateration present at the crown, intact, no bleeding) Eye(s): bilateral: Normal Inspection, PERRL, EOMI Oral Mucosa: Moist, Other (alcohol on breath) Neck: Normal, No Midline Cervical Tenderness, No Paracervical Tenderness, Supple Chest: Symmetrical, No Tenderness Cardiovascular: Rhythm Regular, No Murmur Respiratory: Normal Breath Sounds, No Rales, No Rhonchi, No Wheezing Gastrointestinal/Abdominal: Soft, No Tenderness, No Guarding, No Rebound Extremity: Normal ROM, Other (mulitple healing abrasions to the b/l upper extremities) Neurological/Psych: Oriented x3, Other (speaking full sentences) ED Course And Treatment O2 Sat by Pulse Oximetry: 97 (RA) Pulse Ox Interpretation: Normal - CT Scan/US CT Head Other Rad Studies (CT/US): Read By Radiologist, Radiology Report Reviewed CT/US Interpretation: IMPRESSION: 1. Age-appropriate cerebellar and cerebral atrophy. 2. Mild chronic microvascular disease. 3. No evidence of acute intracranial pathology. Medical Decision Making Medical Decision Making: Plan: CT Head Glucose POC Of note, patient has told 3 different stories to ED staff regarding his fall/presentation today. Disposition Counseled Patient/Family Regarding: Studies Performed, Diagnosis, Need For Followup - Disposition Referrals: Kayley Forrest MD [Staff Provider] - Disposition: HOME/ ROUTINE Disposition Time: 06:29 Condition: STABLE Instructions: Preventing Falls, Opioid Use Disorder Forms: [facility] (Tristanian), General Discharge Instructions - Clinical Impression Clinical Impression: Opiate addiction, Fall from slip, trip, or stumble - Scribe Statement The provider has reviewed the documentation as recorded by the Scribe (Gold Graham) Provider Attestation: All medical record entries made by the Scribe were at my direction and personally dictated by me. I have reviewed the chart and agree that the record accurately reflects my personal performance of the history, physical exam, medical decision making, and the department course for this patient. I have also personally directed, reviewed, and agree with the discharge instructions and disposition.
--- NOTE | 2018-10-11 17:13 | CT ---
Date of service: 10/11/2018 PROCEDURE: CT HEAD WITHOUT CONTRAST. HISTORY: head injury COMPARISON: 09/25/2018 TECHNIQUE: Axial computed tomography images were obtained through the head/brain without intravenous contrast. Radiation dose: Total exam DLP = 1329.71 mGy-cm. This CT exam was performed using one or more of the following dose reduction techniques: Automated exposure control, adjustment of the mA and/or kV according to patient size, and/or use of iterative reconstruction technique. FINDINGS: HEMORRHAGE: No intracranial hemorrhage. BRAIN: No mass effect or edema. Small old right temporoparietal infarct. No evidence of acute infarct. VENTRICLES: Unremarkable. No hydrocephalus. CALVARIUM: No fracture. Left temporal scalp contusion mildly improved compared to prior examination. PARANASAL SINUSES: Chronic sphenoid sinusitis MASTOID AIR CELLS: Unremarkable as visualized. No inflammatory changes. OTHER FINDINGS: None. IMPRESSION: No intracranial hemorrhage. Improving left temporal scalp contusion. Chronic sphenoid sinusitis. Old right temporoparietal infarct. The preliminary findings for this examination were reported by [facility] Radiology at 5:48 a.m. on 10/11/2018. There is concurrence of this report with the preliminary findings.
== END 2018-10-11 10:08 | disposition home or self-care (01) ==
LOC: C.ER 00:08
DX: F11.20 Opioid dependence, uncomplicated (principal); W01.0XXA Fall on same level from slipping, tripping and stumbling without subsequent striking against object, initial encounter

== ENCOUNTER 2018-10-12 23:05 | Inpatient (IN) | payer MEDICARE, MEDICAID ==
[2018-10-12 23:05] VITALS: BMI 38.4
--- NOTE | 2018-10-13 00:59 | C.PDOC ---
History Of Present Illness 68 year old male is brought to the ED by ambulance with acute alcohol intoxication. Patient admits to drinking earlier today and does not offer any physical complaints at this time. - HPI Time Seen by Provider: 10/12/18 23:51 Chief Complaint (Nursing): Trauma History Per: Patient History/Exam Limitations: intoxication Onset/Duration Of Symptoms: Hrs Injury Occurred (Timing): Just Before Arrival Additional History Per: Patient Past Medical History Reviewed: Historical Data, Nursing Documentation, Vital Signs Vital Signs: Last Vital Signs Temp 98 F 10/12/18 23:31 Pulse 120 H 10/12/18 23:31 Resp 22 10/12/18 23:31 BP 151/86 H 10/12/18 23:31 Pulse Ox 98 10/12/18 23:31 - Medical History PMH: Anemia, Atrial Fibrillation, CHF (A-fib), Diabetes, Hepatitis, HTN, Hypercholesterolemia, Sleep Apnea Denies: Deep Vein Thrombosis, HIV, Chronic Kidney Disease, Seizures, Sexually Transmitted Disease Surgical History: No Surg Hx Denies: Pacemaker - [facility] Procedures DETOXIFICATION SERVICES FOR SUBSTANCE ABUSE TREATMENT (10/07/18) DRUG DETOXIFICATION (03/15/15) FLUOROSCOPY OF AORTA, BI LE ART USING L OSM CONTRAST (10/02/18) INDIV PSYCHOTHERAPY FOR SUBSTANCE ABUSE TREATMENT, SUPPORT (09/23/18) INDIV PSYCHOTHERAPY FOR SUBSTANCE ABUSE, COGNITIV BEHAVIORAL (09/23/18) INDIV PSYCHOTHERAPY FOR SUBSTANCE ABUSE, PSYCHOEDUCATION (09/23/18) INSERTION OF INFUSION DEV INTO L BASILIC VEIN, PERC APPROACH (08/30/18) MEDS MGMT FOR SUBSTANCE ABUSE TREATMENT, METHADONE MAINT (07/06/18) TETANUS TOXOID ADMINIST (04/19/15) TRANSFUSE NONAUT RED BLOOD CELLS IN PERIPH VEIN, PERC (09/23/18) ULTRASONOGRAPHY OF LEFT UPPER EXTREMITY VEINS, GUIDANCE (08/30/18) Family History: States: Unknown Family Hx - Social History Hx Tobacco Use: No Hx Alcohol Use: Yes Hx Substance Use: Yes - Immunization History Hx Tetanus Toxoid Vaccination: Yes Hx Influenza Vaccination: Yes Hx Pneumococcal Vaccination: Yes Review Of Systems Psych: Positive for: Other (alcohol intoxication ) Physical Exam - Physical Exam Appears: Non-toxic, No Acute Distress, Other (visibly intoxicated, belligerent, alcohol odor noted ) Skin: Normal Color, Warm, Dry Head: Other (old, healing abrasion/hematoma to the back of scalp ) Eye(s): bilateral: Normal Inspection Oral Mucosa: Moist Neck: Supple Chest: Symmetrical, No Deformity Cardiovascular: Rhythm Irregular, No Murmur, Other (tachycardic ) Respiratory: Normal Breath Sounds, No Rales, No Rhonchi, No Wheezing Gastrointestinal/Abdominal: Normal Exam Extremity: Normal ROM Neurological/Psych: Other (arousable to touch and verbal stimuli ) Gait: Unsteady ED Course And Treatment - Laboratory Results Result Diagrams: 10/19/18 09:11 10/19/18 09:11 O2 Sat by Pulse Oximetry: 98 (on RA) Pulse Ox Interpretation: Normal Disposition Counseled Patient/Family Regarding: Studies Performed, Diagnosis - Disposition Disposition: HOSPITALIZED Disposition Time: 06:58 Condition: IMPROVED - Clinical Impression Clinical Impression: Atrial fibrillation with rapid ventricular response, Hyperglycemia - Scribe Statement The provider has reviewed the documentation as recorded by the Scribe (Maria Luisa Forrest) Provider Attestation: All medical record entries made by the Scribe were at my direction and personally dictated by me. I have reviewed the chart and agree that the record accurately reflects my personal performance of the history, physical exam, medical decision making, and the department course for this patient. I have also personally directed, reviewed, and agree with the discharge instructions and disposition.
[2018-10-13 06:24] LABS: BASO % 0.3 % (0.0-2.0); EOS # 0.2 K/uL (0.0-0.7); EOS % 4.7 % (0.0-4.0); LYMPH # 1.3 K/uL (1.0-4.3); LYMPH % 30.4 % (20.0-40.0); MEAN CORPUSCULAR HEMOGLOBIN 27.8 pg (27.0-31.0); MEAN CORPUSCULAR HGB CONC 31.6 g/dL (33.0-37.0); MEAN PLATELET VOLUME 7.6 fL (7.2-11.7); MONO # 0.7 K/uL (0.0-0.8); MONO % 16.4 % (0.0-10.0); NEUT # 2.1 K/uL (1.8-7.0); NEUT % 48.2 % (50.0-75.0); RBC 3.61 Mil/uL (4.40-5.90); RED CELL DISTRIBUTION WIDTH 21.6 % (11.5-14.5); WHITE BLOOD COUNT 4.3 K/uL (4.8-10.8)
[2018-10-13 06:40] LABS: ALB/GLOB RATIO 1.2 (1.0-2.1); ALBUMIN 3.6 g/dL (3.5-5.0); ALT/SGPT 21 U/L (21-72); AST/SGOT 48 U/L (17-59); BLOOD UREA NITROGEN 24 mg/dL (9-20); CALCIUM 8.5 mg/dl (8.6-10.4); GFR NON-AFRICAN AMERICAN > 60
[2018-10-13 06:44] LABS: INR 1.3; PROTHROMBIN TIME 13.8 SECONDS (9.7-12.2)
[2018-10-13 06:53] LABS: B-TYPE NATRIURETIC PEPTIDE 2150 pg/mL (0-900)
--- NOTE | 2018-10-13 10:37 | CT ---
Date of service: 10/13/2018 PROCEDURE: CT HEAD WITHOUT CONTRAST. HISTORY: fall COMPARISON: Comparison made with prior CT scan brain dated 10/11/2018. TECHNIQUE: Axial computed tomography images were obtained through the head/brain without intravenous contrast. Radiation dose: Total exam DLP = 1024.18 mGy-cm. This CT exam was performed using one or more of the following dose reduction techniques: Automated exposure control, adjustment of the mA and/or kV according to patient size, and/or use of iterative reconstruction technique. FINDINGS: HEMORRHAGE: No acute parenchymal, subarachnoid or extra-axial hemorrhage. BRAIN: Mild chronic periventricular white matter ischemic changes seen extending peripherally into deep white matter both cerebral hemispheres.. There is a least 1 discrete right possibly a few tiny left basal ganglia lacunar type infarcts Moderate generalized volume loss Mild vascular calcifications both carotid siphons and vertebral arteries.. VENTRICLES: No obstructive hydrocephalus. CALVARIUM: There are no acute calvarial fracture seen. Mild right posterior superior parietal scalp contusion. PARANASAL SINUSES: Polypoid like mucosal thickening seen within the left chamber of the sphenoid sinus MASTOID AIR CELLS: Unremarkable as visualized. No inflammatory changes. OTHER FINDINGS: None. IMPRESSION: No acute intracranial hemorrhage. Mild chronic white matter ischemic changes. There is a least 1 discrete right possibly a few tiny left basal ganglia lacunar type infarcts Moderate generalized volume loss [id number] generalized volume loss. Small right posterior superior parietal scalp contusion.
[2018-10-13] MEDS ORDERED: Methadone 40 mg Tab PO ONE (10:45)
--- NOTE | 2018-10-13 12:39 | PCM.PSYCH ---
Initial Psychiatric Evaluation - Initial Psychiatric Evaluation Type of Admission: Voluntary Legal Status: Capacity History of Present Illness and Precipitating Events: Patient is seen, chart reviewed, and case discussed. Consult was requested for heroin withdrawal again. 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 He admits to using 10-15 bags of heroin, intranasally and intravascularly, daily. He last used before he came and has been using heroin for more than 10 years. He states he has been to detox before in group home but none otherwise. Patient denies using any other substances including cocaine, cigarettes, oxycodone, marijuana, and pills. Patient was last seen here recently. He denies active suicidal ideation currently but he has been chronically passive-suicidal bc of his use. Patient also denies hallucinations, paranoia, and homicidial ideations. He feels depressed, anxious and irate. He also admits to drinking a lot, more than a pint a day. No seizures. He is known from previous admissions and he always leaves AMA, w/o completing his detox. He claimed this time he would stay b/c he got 40 mg and feels better. Past Psychiatric History: depression Family Psych History: none PMHx: obesity, DM, HTN, Hep. C, iron deficiency anemia, he came with another fall Current Medications: Active Medications Generic Name Dose Route Start Last Admin Trade Name Freq PRN Reason Stop Dose Admin Diltiazem HCl 125 mg/ Sodium 125 mls @ 5 mls/hr 10/13/18 07:00 10/13/18 08:30 Chloride IV 5 mg/hr .Q24H SHARIF 5 mls/hr Administration Protocol 5 MG/HR Lorazepam 1 mg 10/13/18 10:39 10/13/18 11:54 Ativan IVP 1 mg Q6H PRN Administration Anxiety Past Psychiatric History - Past Psychiatric History Pertinent Medical Hx (Current Medical&Sleep Prob, Allergies): Allergies Allergy/AdvReac Type Severity Reaction Status Date / Time No Known Allergies Allergy Verified 10/12/18 23:37 MetFORMIN [glucOPHAGE] 1,000 mg PO BID 11/16/14 Atorvastatin [Lipitor] 40 mg PO DAILY 03/29/17 Insulin Glargine, Recombina [Lantus] 50 unit SQ HS 03/29/17 Digoxin 125 mcg PO DAILY 01/21/18 Gabapentin 800 mg PO BID 01/21/18 Xarelto 20 mg PO DAILY 01/21/18 Diltiazem HCl [Diltiazem 24Hr ER] 360 mg PO Q24H 10/02/18 Lisinopril [Zestril] 40 mg PO DAILY 10/02/18 Temazepam 30 mg PO HS PRN 10/02/18 Review of Systems - Psychiatric Psychiatric: Abnormal Sleep Pattern, Anhedonia, Anxiety, Depression, Difficulty Concentrating, Irritability, Mood Swings. absent: Hallucinations, Homicidal Ideation, Suicidal Ideation Mental Status Examination - Personal Presentation Personal Presentation: Looks stated age - Affect Affect: Constricted - Motor Activity Motor Activity: Calm - Reliability in Providing Information Reliability in Providing Information: Good - Speech Speech: Organized - Mood Mood: Depressed, Anxious - Formal Thought Process Formal Thought Process: No Impairment - Cognitive Functions Orientation: Person, Place, Situation, Time Sensorium: Alert Attention/Concentration: Easily distracted Estimate of Intelligence: Average Judgement: Intact, as evidence by: Insight regarding need for hospitalization Memory: Recent intact, as evidence by: Ability to recall events of the day, Remote impaired as evidenced by: Inability to recall sig life events - Risk Risk: Withdrawal, Diminished functioning - Strength & Assets Inventory Strength & Assets Inventory: Cooperative DSM 5 DX - DSM 5 DSM 5 Diagnosis: Opioid withdrawal Opioid use disorder, severe Alcohol withdrawal Alcohol use d/o - severe Dysthymic d/o Personality d/o - unspecified - Recommended/Plan of Treatment Treatment Recommendations and Plan of Treatment: Taper with methadone and librium Gabapentin for augmentation if needed As needed medications All risks, benefits and alternatives of the meds discussed, and the pt agreed and understood. Supportive therapy and psychoeducation [place] for abstinence Encourage MAT Refer to rehab or IOP, and self-help groups Teach healthy lifestyle methods, i.e. diet, exercise, meditation Smoking cessation with [place] Nicotine patch if needed 33 min
--- NOTE | 2018-10-13 14:04 | RAD ---
Date of service: 10/13/2018 PROCEDURE: CHEST RADIOGRAPH, 1 VIEW HISTORY: chest pain COMPARISON: 09/23/2018. FINDINGS: LUNGS: Clear. PLEURA: No pneumothorax or pleural fluid seen. CARDIOVASCULAR: Cardiomegaly. No evidence of acute, significant cardiovascular disease. No visible aortic calcification. OSSEOUS STRUCTURES: No significant abnormalities. VISUALIZED UPPER ABDOMEN: Normal. OTHER FINDINGS: None. IMPRESSION: No active disease. No acute/significant interval changes.
--- NOTE | 2018-10-13 20:33 | CP.PCM.HP ---
Past Patient History - Infectious Disease Hx of Infectious Diseases: None - Past Medical History & Family History Past Medical History?: Yes - Past Social History Smoking Status: Never Smoked - CARDIAC Hx Atrial Fibrillation: Yes Hx Congestive Heart Failure: Yes (A-fib) Hx Hypercholesterolemia: Yes Hx Hypertension: Yes Hx Pacemaker: No - PULMONARY Hx Sleep Apnea: Yes - NEUROLOGICAL Hx Seizures: No - HEENT Hx HEENT Problems: No - RENAL Hx Chronic Kidney Disease: No - ENDOCRINE/METABOLIC Hx Diabetes Mellitus Type 2: Yes - HEMATOLOGICAL/ONCOLOGICAL Hx Anemia: Yes Hx Human Immunodeficiency Virus (HIV): No - INTEGUMENTARY Hx Dermatological Problems: Yes Hx Melanoma: Yes (Malignant Melonoma removed 1996) - MUSCULOSKELETAL/RHEUMATOLOGICAL Hx Falls: Yes - GASTROINTESTINAL Hx Gastrointestinal Disorders: No - GENITOURINARY/GYNECOLOGICAL Hx Sexually Transmitted Disorders: No - PSYCHIATRIC Hx Substance Use: Yes (heroin 10 bags a day) - SURGICAL HISTORY Hx Surgeries: Yes Hx Musculoskeletal Surgery: Yes (BILATERAL KNEE, CARPAL TUNNEL) Other/Comment: Umbilical Hernia Repair. B/L Knee Artho,. lymph nodes removeded from jamal axilla - ANESTHESIA Hx Anesthesia: Yes Hx Anesthesia Reactions: No Hx Malignant Hyperthermia: No Meds Allergies/Adverse Reactions: Allergies Allergy/AdvReac Type Severity Reaction Status Date / Time No Known Allergies Allergy Verified 10/12/18 23:37 Physical Exam - Constitutional Appears: Well - Head Exam Head Exam: ATRAUMATIC, NORMAL INSPECTION, NORMOCEPHALIC - Eye Exam Eye Exam: EOMI, Normal appearance, PERRL Pupil Exam: NORMAL ACCOMODATION, PERRL - ENT Exam ENT Exam: Mucous Membranes Moist, Normal Exam - Neck Exam Neck exam: Positive for: Normal Inspection - Respiratory Exam Respiratory Exam: Decreased Breath Sounds - Cardiovascular Exam Cardiovascular Exam: REGULAR RHYTHM, +S1, +S2 - GI/Abdominal Exam GI & Abdominal Exam: Diminished Bowel Sounds, Soft - Rectal Exam Rectal Exam: Deferred Results - Vital Signs Recent Vital Signs: Last Vital Signs Temp 99.1 F 10/13/18 16:00 Pulse 108 H 10/13/18 19:00 Resp 21 10/13/18 19:00 BP 154/78 H 10/13/18 19:00 Pulse Ox 97 10/13/18 19:00 - Labs Result Diagrams: 10/13/18 06:18 10/13/18 06:18 Labs: Laboratory Results - last 24 hr 10/12/18 10/13/18 10/13/18 23:11 06:18 06:18 WBC 4.3 L RBC 3.61 L Hgb 10.0 L Hct 31.8 L MCV 88.0 MCH 27.8 MCHC 31.6 L RDW 21.6 H Plt Count 217 MPV 7.6 Neut % (Auto) 48.2 L Lymph % (Auto) 30.4 [place] % (Auto) 16.4 H Eos % (Auto) 4.7 H Baso % (Auto) 0.3 Neut # (Auto) 2.1 Lymph # (Auto) 1.3 [place] # (Auto) 0.7 Eos # (Auto) 0.2 Baso # (Auto) 0.0 PT 13.8 H INR 1.3 APTT 28 Sodium Potassium Chloride Carbon Dioxide Anion Gap BUN Creatinine Est GFR ( Amer) Est GFR (Non-Af Amer) POC Glucose (mg/dL) 198 H Random Glucose Calcium Total Bilirubin AST ALT Alkaline Phosphatase Troponin I NT-Pro-B Natriuret Pep Total Protein Albumin Globulin Albumin/Globulin Ratio Digoxin Alcohol, Quantitative 10/13/18 10/13/18 10/13/18 06:18 06:18 07:02 WBC RBC Hgb Hct MCV MCH MCHC RDW Plt Count MPV Neut % (Auto) Lymph % (Auto) [place] % (Auto) Eos % (Auto) Baso % (Auto) Neut # (Auto) Lymph # (Auto) [place] # (Auto) Eos # (Auto) Baso # (Auto) PT INR APTT Sodium 137 Potassium 4.3 Chloride 104 Carbon Dioxide 25 Anion Gap 13 BUN 24 H Creatinine 1.0 Est GFR ( Amer) > 60 Est GFR (Non-Af Amer) > 60 POC Glucose (mg/dL) Random Glucose 151 H D Calcium 8.5 L Total Bilirubin 0.3 AST 48 ALT 21 D Alkaline Phosphatase 103 Troponin I < 0.0120 NT-Pro-B Natriuret Pep 2150 H Total Protein 6.6 Albumin 3.6 Globulin 3.0 Albumin/Globulin Ratio 1.2 Digoxin < 0.4 L Alcohol, Quantitative 141 H 10/13/18 10/13/18 11:35 16:01 WBC RBC Hgb Hct MCV MCH MCHC RDW Plt Count MPV Neut % (Auto) Lymph % (Auto) [place] % (Auto) Eos % (Auto) Baso % (Auto) Neut # (Auto) Lymph # (Auto) [place] # (Auto) Eos # (Auto) Baso # (Auto) PT INR APTT Sodium Potassium Chloride Carbon Dioxide Anion Gap BUN Creatinine Est GFR ( Amer) Est GFR (Non-Af Amer) POC Glucose (mg/dL) 215 H 156 H Random Glucose Calcium Total Bilirubin AST ALT Alkaline Phosphatase Troponin I NT-Pro-B Natriuret Pep Total Protein Albumin Globulin Albumin/Globulin Ratio Digoxin Alcohol, Quantitative
[2018-10-13] MEDS ORDERED: Morphine 4 MG/ML VIAL IV PRN (21:34)
[2018-10-13 21:37] LABS: BENZODIAZEPINES, UR NEGATIVE (NEGATIVE); PHENCYCLIDINE, UR NEGATIVE (NEGATIVE)
[2018-10-13 21:38] LABS: OPIATES, UR POSITIVE (NEGATIVE)
--- NOTE | 2018-10-13 21:51 | CP.PCM.CON ---
History of Present Illness - History of Present Illness History of Present Illness: 68 year old male with PMH of Anemia, Atrial Fibrillation, CHF , Diabetes, Hepatitis C (treated 2014), HTN, Hypercholesterolemia, ?Sleep Apnea (not had a sleep study)is brought to the ED by ambulance with acute alcohol intoxication patient states that he fell at home,was unable to get to the phone,was able to get to the door and called for help.A Neighbour called [phone] No complaints Review of Systems - Review of Systems Review of Systems: tachycardic ,denies palpitations - Constitutional Constitutional: Frequent Falls, Sleep Apnea. absent: Fever Additional comments: hg/o frequesnt falls since last supper had bilateral knee replacements 2016.at that time he was told he had sleep apnea but no sleep study was done per patient - EENT Eyes: absent: Diplopia, Irritation Ears: absent: Ear Discharge, Dizziness Nose/Mouth/Throat: absent: Sore Throat, Neck Pain - Cardiovascular Cardiovascular: absent: Chest Pain, Palpitations - Respiratory Respiratory: absent: Cough, Hemoptysis - Gastrointestinal Gastrointestinal: absent: Abdominal Pain, Nausea, Vomiting - Genitourinary Genitourinary: absent: Dysuria, Hematuria - Integumentary Integumentary: Swelling, Wounds. absent: Rash - Neurological Neurological: absent: Dizziness, Syncope - Endocrine Endocrine: absent: Palpitations, Polyuria - Hematologic/Lymphatic Hematologic: absent: Easy Bleeding Past Patient History - Infectious Disease Hx of Infectious Diseases: None - Past Medical History & Family History Past Medical History?: Yes - Past Social History Smoking Status: Never Smoked Occupation: retired Alcohol: Other (drinks about 18 cans beer daily) Drugs: Opiates Home Situation {Lives}: Alone - CARDIAC Hx Atrial Fibrillation: Yes Hx Congestive Heart Failure: Yes (A-fib) Hx Hypercholesterolemia: Yes Hx Hypertension: Yes Hx Pacemaker: No - PULMONARY Hx Sleep Apnea: Yes - NEUROLOGICAL Hx Seizures: No - HEENT Hx HEENT Problems: No - RENAL Hx Chronic Kidney Disease: No - ENDOCRINE/METABOLIC Hx Diabetes Mellitus Type 2: Yes - HEMATOLOGICAL/ONCOLOGICAL Hx Anemia: Yes Hx Human Immunodeficiency Virus (HIV): No - INTEGUMENTARY Hx Dermatological Problems: Yes Hx Melanoma: Yes (Malignant Melonoma removed 1996) - MUSCULOSKELETAL/RHEUMATOLOGICAL Hx Falls: Yes - GASTROINTESTINAL Hx Gastrointestinal Disorders: No - GENITOURINARY/GYNECOLOGICAL Hx Sexually Transmitted Disorders: No - PSYCHIATRIC Hx Substance Use: Yes (heroin 10 bags a day) - SURGICAL HISTORY Hx Surgeries: Yes Hx Musculoskeletal Surgery: Yes (BILATERAL KNEE, CARPAL TUNNEL) Other/Comment: Umbilical Hernia Repair. B/L Knee Artho,. lymph nodes removeded from jamal axilla - ANESTHESIA Hx Anesthesia: Yes Hx Anesthesia Reactions: No Hx Malignant Hyperthermia: No Meds Allergies/Adverse Reactions: Allergies Allergy/AdvReac Type Severity Reaction Status Date / Time No Known Allergies Allergy Verified 10/12/18 23:37 - Medications Medications: Current Medications Aspirin (Aspirin) 325 mg PO DAILY SHARIF Chlordiazepoxide (Librium) 25 mg PO Q6H SHARIF; Taper Stop: 10/17/18 13:59 Last Admin: 10/13/18 20:07 Dose: 25 mg Enoxaparin Sodium (Lovenox) 40 mg SC DAILY SHARIF Diltiazem HCl 125 mg/ Sodium (Chloride) 125 mls @ 5 mls/hr IV .Q24H SHARIF; P rotocol Last Admin: 10/13/18 08:30 Dose: 5 mg/hr, 5 mls/hr Piperacillin Sod/Tazobactam (Sod 3.375 gm/ Sodium Chloride) 100 mls @ 200 mls/hr IVPB Q8H SHARIF; Protocol Vancomycin HCl 1 gm/ Sodium (Chloride) 250 mls @ 166.7 mls/hr IVPB Q24H SHARIF; Protocol Stop: 10/16/18 00:00 Insulin Human Regular (Novolin R) 0 unit SC ACHS SHARIF; Protocol Lorazepam (Ativan) 2 mg IVP Q4H PRN PRN Reason: Agitation Last Admin: 10/13/18 20:46 Dose: 2 mg Methadone HCl (Methadone) 30 mg PO Q24H SHARIF; Taper Stop: 10/19/18 08:59 Morphine Sulfate (Morphine) 4 mg IV Q6 PRN PRN Reason: pain Physical Exam - Constitutional Appears: Non-toxic, No Acute Distress - Head Exam Head Exam: NORMOCEPHALIC Additional comments: right posterior scalp contusion with suture - Eye Exam Eye Exam: EOMI, PERRL. absent: Scleral icterus Pupil Exam: NORMAL ACCOMODATION - ENT Exam ENT Exam: Mucous Membranes Dry - Neck Exam Neck exam: Positive for: Normal Inspection - Respiratory Exam Respiratory Exam: Clear to Auscultation Bilateral. absent: Rhonchi, Wheezes - Cardiovascular Exam Cardiovascular Exam: Tachycardia, Irregular Rhythm. absent: JVD - GI/Abdominal Exam GI & Abdominal Exam: Normal Bowel Sounds, Soft. absent: Tenderness - Extremities Exam Extremities exam: Positive for: pedal edema, pedal pulses present. Negative for: calf tenderness Additional comments: bilateral heel ulcers with leg swelling and erythema - Back Exam Back exam: NORMAL INSPECTION - Neurological Exam Neurological exam: Alert, Oriented x3 - Skin Skin Exam: Dry, Normal Color, Warm Results - Vital Signs Recent Vital Signs: Last Vital Signs Temp 99.1 F 10/13/18 16:00 Pulse 108 H 10/13/18 19:00 Resp 21 10/13/18 19:00 BP 154/78 H 10/13/18 19:00 Pulse Ox 97 10/13/18 19:00 - Labs Result Diagrams: 10/13/18 06:18 10/13/18 06:18 Labs: Laboratory Results - last 24 hr 10/12/18 10/13/18 10/13/18 23:11 06:18 06:18 WBC 4.3 L RBC 3.61 L Hgb 10.0 L Hct 31.8 L MCV 88.0 MCH 27.8 MCHC 31.6 L RDW 21.6 H Plt Count 217 MPV 7.6 Neut % (Auto) 48.2 L Lymph % (Auto) 30.4 [place] % (Auto) 16.4 H Eos % (Auto) 4.7 H Baso % (Auto) 0.3 Neut # (Auto) 2.1 Lymph # (Auto) 1.3 [place] # (Auto) 0.7 Eos # (Auto) 0.2 Baso # (Auto) 0.0 PT 13.8 H INR 1.3 APTT 28 Sodium Potassium Chloride Carbon Dioxide Anion Gap BUN Creatinine Est GFR ( Amer) Est GFR (Non-Af Amer) POC Glucose (mg/dL) 198 H Random Glucose Calcium Total Bilirubin AST ALT Alkaline Phosphatase Troponin I NT-Pro-B Natriuret Pep Total Protein Albumin Globulin Albumin/Globulin Ratio Digoxin Urine Opiates Screen Urine Methadone Screen Ur Phencyclidine Scrn Ur Amphetamines Screen U Benzodiazepines Scrn U Oth Cocaine Metabols U Cannabinoids Screen Alcohol, Quantitative 10/13/18 10/13/18 10/13/18 06:18 06:18 07:02 WBC RBC Hgb Hct MCV MCH MCHC RDW Plt Count MPV Neut % (Auto) Lymph % (Auto) [place] % (Auto) Eos % (Auto) Baso % (Auto) Neut # (Auto) Lymph # (Auto) [place] # (Auto) Eos # (Auto) Baso # (Auto) PT INR APTT Sodium 137 Potassium 4.3 Chloride 104 Carbon Dioxide 25 Anion Gap 13 BUN 24 H Creatinine 1.0 Est GFR ( Amer) > 60 Est GFR (Non-Af Amer) > 60 POC Glucose (mg/dL) Random Glucose 151 H D Calcium 8.5 L Total Bilirubin 0.3 AST 48 ALT 21 D Alkaline Phosphatase 103 Troponin I < 0.0120 NT-Pro-B Natriuret Pep 2150 H Total Protein 6.6 Albumin 3.6 Globulin 3.0 Albumin/Globulin Ratio 1.2 Digoxin < 0.4 L Urine Opiates Screen Urine Methadone Screen Ur Phencyclidine Scrn Ur Amphetamines Screen U Benzodiazepines Scrn U Oth Cocaine Metabols U Cannabinoids Screen Alcohol, Quantitative 141 H 10/13/18 10/13/18 10/13/18 11:35 16:01 20:59 WBC RBC Hgb Hct MCV MCH MCHC RDW Plt Count MPV Neut % (Auto) Lymph % (Auto) [place] % (Auto) Eos % (Auto) Baso % (Auto) Neut # (Auto) Lymph # (Auto) [place] # (Auto) Eos # (Auto) Baso # (Auto) PT INR APTT Sodium Potassium Chloride Carbon Dioxide Anion Gap BUN Creatinine Est GFR ( Amer) Est GFR (Non-Af Amer) POC Glucose (mg/dL) 215 H 156 H Random Glucose Calcium Total Bilirubin AST ALT Alkaline Phosphatase Troponin I NT-Pro-B Natriuret Pep Total Protein Albumin Globulin Albumin/Globulin Ratio Digoxin Urine Opiates Screen Positive H Urine Methadone Screen Negative Ur Phencyclidine Scrn Negative Ur Amphetamines Screen Negative U Benzodiazepines Scrn Negative U Oth Cocaine Metabols Negative U Cannabinoids Screen Negative Alcohol, Quantitative 10/13/18 21:12 WBC RBC Hgb Hct MCV MCH MCHC RDW Plt Count MPV Neut % (Auto) Lymph % (Auto) [place] % (Auto) Eos % (Auto) Baso % (Auto) Neut # (Auto) Lymph # (Auto) [place] # (Auto) Eos # (Auto) Baso # (Auto) PT INR APTT Sodium Potassium Chloride Carbon Dioxide Anion Gap BUN Creatinine Est GFR ( Amer) Est GFR (Non-Af Amer) POC Glucose (mg/dL) 120 H Random Glucose Calcium Total Bilirubin AST ALT Alkaline Phosphatase Troponin I NT-Pro-B Natriuret Pep Total Protein Albumin Globulin Albumin/Globulin Ratio Digoxin Urine Opiates Screen Urine Methadone Screen Ur Phencyclidine Scrn Ur Amphetamines Screen U Benzodiazepines Scrn U Oth Cocaine Metabols U Cannabinoids Screen Alcohol, Quantitative - EKG Data EKG Interpreted by: Myself - Imaging and Cardiology Chest x-ray Status: Image reviewed by me, Report reviewed by me CT scan - head Status: Image reviewed by me, Report reviewed by me Assessment & Plan - Assessment and Plan (Free Text) Assessment: 1.Atrial fibrillation with RVR on Cardizem drip was on Xarelto and diltizem at home 2.Bilateral heel ulcers/leg cellulitis on antibiotics 3.Anemia -chronic r/o GI bleeding,patient on xarelto 4.Alchohol abuse-watch for DT's/CIWA 5.Hypertension continue meds 6.DM on lantus insulin 7.Recurrent Falls,uses walker 8.Opiate abuse-has not been on methadone program or any other medicated assisted treatment 9.Hepatitis C treated with suzanne
[2018-10-13] MEDS: (Novolin R) Insulin Human Regular 100 units/ml vial SC SCH (22:03)
[2018-10-13] MEDS: Piperacillin/Tazobact 3.375 GM in Sodium Chloride 100 ML IVPB SCH ×2 (22:42→23:46)
[2018-10-13 22:52] LABS: BARBITURATES, UR NEGATIVE (NEGATIVE)
[2018-10-13 23:04] LABS: CK-MB 1.09 ng/mL (0.0-3.38); TROPONIN I 0.056 ng/mL (0.00-0.120)
[2018-10-14 02:20] LABS: IRON 179 ug/dL (49-181)
[2018-10-14 02:30] LABS: % IRON SATURATION 54 (20-55); TOTAL IRON BINDING CAPACITY 329 ug/dL (250-450)
[2018-10-14] MEDS: Piperacillin/Tazobact 3.375 GM in Sodium Chloride 100 ML IVPB SCH ×3 (06:01→21:32)
[2018-10-14 06:35] LABS: BASO # 0.1 K/uL (0.0-0.2); BASO % 1.2 % (0.0-2.0); EOS # 0.1 K/uL (0.0-0.7); EOS % 1.5 % (0.0-4.0); HEMOGLOBIN 10.2 g/dL (12.0-18.0); LYMPH # 0.9 K/uL (1.0-4.3); MEAN CELL VOLUME 86.3 fL (80.0-94.0); MEAN CORPUSCULAR HGB CONC 32.4 g/dL (33.0-37.0); MEAN PLATELET VOLUME 8.1 fL (7.2-11.7); MONO # 0.6 K/uL (0.0-0.8); MONO % 7.9 % (0.0-10.0); NEUT # 5.8 K/uL (1.8-7.0); NEUT % 77.4 % (50.0-75.0); RBC 3.64 Mil/uL (4.40-5.90); RED CELL DISTRIBUTION WIDTH 21.6 % (11.5-14.5); WHITE BLOOD COUNT 7.5 K/uL (4.8-10.8)
[2018-10-14 06:54] LABS: ALB/GLOB RATIO 1.2 (1.0-2.1); ALBUMIN 3.6 g/dL (3.5-5.0); ALT/SGPT 24 U/L (21-72); AST/SGOT 50 U/L (17-59); BLOOD UREA NITROGEN 15 mg/dL (9-20); CALCIUM 8.5 mg/dl (8.6-10.4); GFR NON-AFRICAN AMERICAN > 60
[2018-10-14 06:59] LABS: CK-MB 0.84 ng/mL (0.0-3.38)
--- NOTE | 2018-10-14 07:37 | CP.CCUPN ---
<Malcolm Bedolla - Last Filed: 10/14/18 11:55> CCU Subjective - Physician Review Subjective (Free Text): 10/14/18 08:17 ICU Progress Note for Dr. Garcia Pt seen and examined at bedside. S/p episode of rapid-Afib overnight, pt was placed on Cardizem drip, now transitioning to PO Cardizem. On vanco/zosyn for bilateral heel ulcers and leg cellulitis, blood cxs obtained and pending. Pt denies any acute complaints this am, further ROS unobtainable due to pt's current mental status. CCU Objective - Vital Signs / Intake & Output Vital Signs (Last 4 hours): Vital Signs Temp 10/14/18 04:00 98.4 F Intake and Output (Last 8hrs): Intake & Output 10/13/18 10/14/18 10/14/18 22:59 06:59 14:59 Intake Total 830 677 Output Total 1800 1300 Balance -970 -623 Intake: IV 142 Intake, IV Amount 40 35 Left Upper arm 35 left upper arm 5 35 Oral 790 500 Output: Urine 1800 1300 Urine, Voided 1800 1300 Other: # Voids Urine, Voided 1 0 # Bowel Movements 0 0 - Physical Exam Head: Positive for: Atraumatic, Normocephalic Pupils: Positive for: PERRL Extroacular Muscles: Positive for: EOMI Mouth: Positive for: Moist Mucous Membranes Respiratory/Chest: Positive for: Clear to Auscultation, Good Air Exchange. Negative for: Respiratory Distress, Accessory Muscle Use, Wheezes, Rales, Rhonchi Cardiovascular: Positive for: Regular Rate and Rhythm, Normal S1, S2. Negative for: Murmurs, Rub, Gallop Abdomen: Positive for: Normal Bowel Sounds. Negative for: Tenderness, Distention, Mass/Organomegaly Upper Extremity: Positive for: Normal Inspection, NORMAL PULSES, Neurovascularly Intact, Capillary Refill < 2s. Negative for: Cyanosis, Edema Lower Extremity: Positive for: NORMAL PULSES, Neurovascularly Intact, Capillary Refill < 2 s. Negative for: Edema Neurological: Positive for: CN II-XII Intact Skin: Positive for: Warm, Dry Psychiatric: Positive for: Alert (oriented x2) - Medications Active Medications: Active Medications Generic Name Dose Route Start Last Admin Trade Name Freq PRN Reason Stop Dose Admin Aspirin 325 mg 10/14/18 10:00 Aspirin PO DAILY [facility] Chlordiazepoxide 25 mg 10/13/18 14:00 10/14/18 01:52 Librium PO 10/17/18 13:59 25 mg Q6H SHARIF Administration Taper Digoxin 0.125 mg 10/14/18 10:00 Digoxin PO DAILY [facility] Diltiazem HCl 30 mg 10/14/18 00:00 10/14/18 07:20 Cardizem PO Not Given Q8H [facility] Enoxaparin Sodium 40 mg 10/14/18 10:00 Lovenox SC DAILY [facility] Famotidine 20 mg 10/14/18 10:00 Pepcid PO BID [facility] Gabapentin 800 mg 10/14/18 10:00 Neurontin PO BID [facility] Diltiazem HCl 125 mg/ Sodium 125 mls @ 5 mls/hr 10/13/18 07:00 10/14/18 06:11 Chloride IV 3 mg/hr .Q24H [facility] 3 mls/hr Titration Protocol 5 MG/HR Piperacillin Sod/Tazobactam 100 mls @ 200 mls/hr 10/13/18 22:00 10/14/18 06:01 Sod 3.375 gm/ Sodium Chloride IVPB 200 mls/hr Q8H [facility] Administration Protocol Vancomycin HCl 1 gm/ Sodium 250 mls @ 166.7 mls/hr 10/13/18 22:30 10/13/18 23:57 Chloride IVPB 10/16/18 00:00 166.7 mls/hr Q24H [facility] Administration Protocol Magnesium Sulfate/Dextrose 1 gm in 100 mls @ 200 mls/hr 10/14/18 07:35 Magnesium Sulfate 1 Gm/100 Ml D5w IVPB 10/14/18 08:04 ONCE ONE Insulin Glargine 50 unit 10/14/18 22:00 Lantus SC HS [facility] Insulin Human Regular 0 unit 10/13/18 22:00 10/13/18 22:03 Novolin R SC Not Given ACHS [facility] Protocol Lisinopril 20 mg 10/14/18 10:00 Zestril PO DAILY [facility] Lorazepam 2 mg 10/13/18 17:50 10/14/18 04:53 Ativan IVP 2 mg Q4H PRN Administration Agitation Metformin HCl 1,000 mg 10/14/18 10:00 Glucophage PO BID SHARIF Methadone HCl 30 mg 10/14/18 09:00 Methadone PO 10/19/18 08:59 Q24H SHARIF Taper Morphine Sulfate 4 mg 10/13/18 21:34 Morphine IV Q6 PRN pain Rivaroxaban 20 mg 10/14/18 10:00 Xarelto PO DAILY [facility] Rosuvastatin Calcium 20 mg 10/14/18 22:00 Crestor PO HS SHARIF Temazepam 30 mg 10/14/18 00:23 Restoril PO HS PRN Insomnia Thiamine HCl 50 mg 10/14/18 10:00 Vitamin B1 Tab PO DAILY [facility] - Patient Studies Lab Studies: Lab Studies 10/14/18 10/14/18 10/14/18 Range/Units 06:31 06:31 06:31 WBC 7.5 D (4.8-10.8) K/uL RBC 3.64 L (4.40-5.90) Mil/uL Hgb 10.2 L (12.0-18.0) g/dL Hct 31.4 L (35.0-51.0) % MCV 86.3 (80.0-94.0) fL MCH 28.0 (27.0-31.0) pg MCHC 32.4 L (33.0-37.0) g/dL RDW 21.6 H (11.5-14.5) % Plt Count 191 (130-400) K/uL MPV 8.1 (7.2-11.7) fL Neut % (Auto) 77.4 H (50.0-75.0) % Lymph % (Auto) 12.0 L (20.0-40.0) % Childress % (Auto) 7.9 (0.0-10.0) % Eos % (Auto) 1.5 (0.0-4.0) % Baso % (Auto) 1.2 (0.0-2.0) % Neut # (Auto) 5.8 (1.8-7.0) K/uL Lymph # (Auto) 0.9 L (1.0-4.3) K/uL Childress # (Auto) 0.6 (0.0-0.8) K/uL Eos # (Auto) 0.1 (0.0-0.7) K/uL Baso # (Auto) 0.1 (0.0-0.2) K/uL Sodium 133 (132-148) mmol/L Potassium 3.9 (3.6-5.2) mmol/L Chloride 101 (98-107) mmol/L Carbon Dioxide 28 (22-30) mmol/L Anion Gap 9 L (10-20) BUN 15 (9-20) mg/dL Creatinine 0.7 L (0.8-1.5) mg/dL Est GFR ( Amer) > 60 Est GFR (Non-Af Amer) > 60 POC Glucose (mg/dL) (65-110) mg/dL Random Glucose 135 H (75-110) mg/dL Calcium 8.5 L (8.6-10.4) mg/dl Phosphorus 2.7 (2.5-4.5) mg/dL Magnesium 1.1 L (1.6-2.3) mg/dL Iron (49-181) ug/dL TIBC (250-450) ug/dL % Saturation (20-55) Total Bilirubin 0.9 (0.2-1.3) mg/dL AST 50 (17-59) U/L ALT 24 (21-72) U/L Alkaline Phosphatase 99 (38-126) U/L Total Creatine Kinase 42 L (55-170) U/L CK-MB (Mass) 0.84 (0.0-3.38) ng/mL Troponin I < 0.0120 (0.00-0.120) ng/mL Total Protein 6.6 (6.3-8.3) g/dL Albumin 3.6 (3.5-5.0) g/dL Globulin 3.0 (2.2-3.9) gm/dL Albumin/Globulin Ratio 1.2 (1.0-2.1) Vitamin B12 (239-931) pg/mL Urine Opiates Screen (NEGATIVE) Urine Methadone Screen (NEGATIVE) Ur Barbiturates Screen (NEGATIVE) Ur Phencyclidine Scrn (NEGATIVE) Ur Amphetamines Screen (NEGATIVE) U Benzodiazepines Scrn (NEGATIVE) U Oth Cocaine Metabols (NEGATIVE) U Cannabinoids Screen (NEGATIVE) 10/14/18 10/14/18 10/13/18 Range/Units 00:48 00:48 22:36 WBC (4.8-10.8) K/uL RBC (4.40-5.90) Mil/uL Hgb (12.0-18.0) g/dL Hct (35.0-51.0) % MCV (80.0-94.0) fL MCH (27.0-31.0) pg MCHC (33.0-37.0) g/dL RDW (11.5-14.5) % Plt Count (130-400) K/uL MPV (7.2-11.7) fL Neut % (Auto) (50.0-75.0) % Lymph % (Auto) (20.0-40.0) % Childress % (Auto) (0.0-10.0) % Eos % (Auto) (0.0-4.0) % Baso % (Auto) (0.0-2.0) % Neut # (Auto) (1.8-7.0) K/uL Lymph # (Auto) (1.0-4.3) K/uL Childress # (Auto) (0.0-0.8) K/uL Eos # (Auto) (0.0-0.7) K/uL Baso # (Auto) (0.0-0.2) K/uL Sodium (132-148) mmol/L Potassium (3.6-5.2) mmol/L Chloride (98-107) mmol/L Carbon Dioxide (22-30) mmol/L Anion Gap (10-20) BUN (9-20) mg/dL Creatinine (0.8-1.5) mg/dL Est GFR ( Amer) Est GFR (Non-Af Amer) POC Glucose (mg/dL) (65-110) mg/dL Random Glucose (75-110) mg/dL Calcium (8.6-10.4) mg/dl Phosphorus (2.5-4.5) mg/dL Magnesium 1.3 L (1.6-2.3) mg/dL Iron 179 (49-181) ug/dL TIBC 329 (250-450) ug/dL % Saturation 54 (20-55) Total Bilirubin (0.2-1.3) mg/dL AST (17-59) U/L ALT (21-72) U/L Alkaline Phosphatase (38-126) U/L Total Creatine Kinase 41 L (55-170) U/L CK-MB (Mass) 1.09 (0.0-3.38) ng/mL Troponin I 0.0560 (0.00-0.120) ng/mL Total Protein (6.3-8.3) g/dL Albumin (3.5-5.0) g/dL Globulin (2.2-3.9) gm/dL Albumin/Globulin Ratio (1.0-2.1) Vitamin B12 160 L (239-931) pg/mL Urine Opiates Screen (NEGATIVE) Urine Methadone Screen (NEGATIVE) Ur Barbiturates Screen (NEGATIVE) Ur Phencyclidine Scrn (NEGATIVE) Ur Amphetamines Screen (NEGATIVE) U Benzodiazepines Scrn (NEGATIVE) U Oth Cocaine Metabols (NEGATIVE) U Cannabinoids Screen (NEGATIVE) 10/13/18 10/13/18 10/13/18 Range/Units 21:12 20:59 16:01 WBC (4.8-10.8) K/uL RBC (4.40-5.90) Mil/uL Hgb (12.0-18.0) g/dL Hct (35.0-51.0) % MCV (80.0-94.0) fL MCH (27.0-31.0) pg MCHC (33.0-37.0) g/dL RDW (11.5-14.5) % Plt Count (130-400) K/uL MPV (7.2-11.7) fL Neut % (Auto) (50.0-75.0) % Lymph % (Auto) (20.0-40.0) % Childress % (Auto) (0.0-10.0) % Eos % (Auto) (0.0-4.0) % Baso % (Auto) (0.0-2.0) % Neut # (Auto) (1.8-7.0) K/uL Lymph # (Auto) (1.0-4.3) K/uL Childress # (Auto) (0.0-0.8) K/uL Eos # (Auto) (0.0-0.7) K/uL Baso # (Auto) (0.0-0.2) K/uL Sodium (132-148) mmol/L Potassium (3.6-5.2) mmol/L Chloride (98-107) mmol/L Carbon Dioxide (22-30) mmol/L Anion Gap (10-20) BUN (9-20) mg/dL Creatinine (0.8-1.5) mg/dL Est GFR ( Amer) Est GFR (Non-Af Amer) POC Glucose (mg/dL) 120 H 156 H (65-110) mg/dL Random Glucose (75-110) mg/dL Calcium (8.6-10.4) mg/dl Phosphorus (2.5-4.5) mg/dL Magnesium (1.6-2.3) mg/dL Iron (49-181) ug/dL TIBC (250-450) ug/dL % Saturation (20-55) Total Bilirubin (0.2-1.3) mg/dL AST (17-59) U/L ALT (21-72) U/L Alkaline Phosphatase (38-126) U/L Total Creatine Kinase (55-170) U/L CK-MB (Mass) (0.0-3.38) ng/mL Troponin I (0.00-0.120) ng/mL Total Protein (6.3-8.3) g/dL Albumin (3.5-5.0) g/dL Globulin (2.2-3.9) gm/dL Albumin/Globulin Ratio (1.0-2.1) Vitamin B12 (239-931) pg/mL Urine Opiates Screen Positive H (NEGATIVE) Urine Methadone Screen Negative (NEGATIVE) Ur Barbiturates Screen Negative (NEGATIVE) Ur Phencyclidine Scrn Negative (NEGATIVE) Ur Amphetamines Screen Negative (NEGATIVE) U Benzodiazepines Scrn Negative (NEGATIVE) U Oth Cocaine Metabols Negative (NEGATIVE) U Cannabinoids Screen Negative (NEGATIVE) 10/13/18 Range/Units 11:35 WBC (4.8-10.8) K/uL RBC (4.40-5.90) Mil/uL Hgb (12.0-18.0) g/dL Hct (35.0-51.0) % MCV (80.0-94.0) fL MCH (27.0-31.0) pg MCHC (33.0-37.0) g/dL RDW (11.5-14.5) % Plt Count (130-400) K/uL MPV (7.2-11.7) fL Neut % (Auto) (50.0-75.0) % Lymph % (Auto) (20.0-40.0) % Childress % (Auto) (0.0-10.0) % Eos % (Auto) (0.0-4.0) % Baso % (Auto) (0.0-2.0) % Neut # (Auto) (1.8-7.0) K/uL Lymph # (Auto) (1.0-4.3) K/uL Childress # (Auto) (0.0-0.8) K/uL Eos # (Auto) (0.0-0.7) K/uL Baso # (Auto) (0.0-0.2) K/uL Sodium (132-148) mmol/L Potassium (3.6-5.2) mmol/L Chloride (98-107) mmol/L Carbon Dioxide (22-30) mmol/L Anion Gap (10-20) BUN (9-20) mg/dL Creatinine (0.8-1.5) mg/dL Est GFR ( Amer) Est GFR (Non-Af Amer) POC Glucose (mg/dL) 215 H (65-110) mg/dL Random Glucose (75-110) mg/dL Calcium (8.6-10.4) mg/dl Phosphorus (2.5-4.5) mg/dL Magnesium (1.6-2.3) mg/dL Iron (49-181) ug/dL TIBC (250-450) ug/dL % Saturation (20-55) Total Bilirubin (0.2-1.3) mg/dL AST (17-59) U/L ALT (21-72) U/L Alkaline Phosphatase (38-126) U/L Total Creatine Kinase (55-170) U/L CK-MB (Mass) (0.0-3.38) ng/mL Troponin I (0.00-0.120) ng/mL Total Protein (6.3-8.3) g/dL Albumin (3.5-5.0) g/dL Globulin (2.2-3.9) gm/dL Albumin/Globulin Ratio (1.0-2.1) Vitamin B12 (239-931) pg/mL Urine Opiates Screen (NEGATIVE) Urine Methadone Screen (NEGATIVE) Ur Barbiturates Screen (NEGATIVE) Ur Phencyclidine Scrn (NEGATIVE) Ur Amphetamines Screen (NEGATIVE) U Benzodiazepines Scrn (NEGATIVE) U Oth Cocaine Metabols (NEGATIVE) U Cannabinoids Screen (NEGATIVE) Laboratory Results - last 24 hr 10/13/18 10/13/18 10/13/18 11:35 16:01 20:59 WBC RBC Hgb Hct MCV MCH MCHC RDW Plt Count MPV Neut % (Auto) Lymph % (Auto) Childress % (Auto) Eos % (Auto) Baso % (Auto) Neut # (Auto) Lymph # (Auto) Childress # (Auto) Eos # (Auto) Baso # (Auto) Sodium Potassium Chloride Carbon Dioxide Anion Gap BUN Creatinine Est GFR ( Amer) Est GFR (Non-Af Amer) POC Glucose (mg/dL) 215 H 156 H Random Glucose Calcium Phosphorus Magnesium Iron TIBC % Saturation Total Bilirubin AST ALT Alkaline Phosphatase Total Creatine Kinase CK-MB (Mass) Troponin I Total Protein Albumin Globulin Albumin/Globulin Ratio Vitamin B12 Urine Opiates Screen Positive H Urine Methadone Screen Negative Ur Barbiturates Screen Negative Ur Phencyclidine Scrn Negative Ur Amphetamines Screen Negative U Benzodiazepines Scrn Negative U Oth Cocaine Metabols Negative U Cannabinoids Screen Negative 10/13/18 10/13/18 10/14/18 21:12 22:36 00:48 WBC RBC Hgb Hct MCV MCH MCHC RDW Plt Count MPV Neut % (Auto) Lymph % (Auto) Childress % (Auto) Eos % (Auto) Baso % (Auto) Neut # (Auto) Lymph # (Auto) Childress # (Auto) Eos # (Auto) Baso # (Auto) Sodium Potassium Chloride Carbon Dioxide Anion Gap BUN Creatinine Est GFR ( Amer) Est GFR (Non-Af Amer) POC Glucose (mg/dL) 120 H Random Glucose Calcium Phosphorus Magnesium Iron 179 TIBC 329 % Saturation 54 Total Bilirubin AST ALT Alkaline Phosphatase Total Creatine Kinase 41 L CK-MB (Mass) 1.09 Troponin I 0.0560 Total Protein Albumin Globulin Albumin/Globulin Ratio Vitamin B12 Urine Opiates Screen Urine Methadone Screen Ur Barbiturates Screen Ur Phencyclidine Scrn Ur Amphetamines Screen U Benzodiazepines Scrn U Oth Cocaine Metabols U Cannabinoids Screen 10/14/18 10/14/18 10/14/18 00:48 06:31 06:31 WBC 7.5 D RBC 3.64 L Hgb 10.2 L Hct 31.4 L MCV 86.3 MCH 28.0 MCHC 32.4 L RDW 21.6 H Plt Count 191 MPV 8.1 Neut % (Auto) 77.4 H Lymph % (Auto) 12.0 L Childress % (Auto) 7.9 Eos % (Auto) 1.5 Baso % (Auto) 1.2 Neut # (Auto) 5.8 Lymph # (Auto) 0.9 L Childress # (Auto) 0.6 Eos # (Auto) 0.1 Baso # (Auto) 0.1 Sodium 133 Potassium 3.9 Chloride 101 Carbon Dioxide 28 Anion Gap 9 L BUN 15 Creatinine 0.7 L Est GFR ( Amer) > 60 Est GFR (Non-Af Amer) > 60 POC Glucose (mg/dL) Random Glucose 135 H Calcium 8.5 L Phosphorus 2.7 Magnesium 1.3 L 1.1 L Iron TIBC % Saturation Total Bilirubin 0.9 AST 50 ALT 24 Alkaline Phosphatase 99 Total Creatine Kinase CK-MB (Mass) Troponin I Total Protein 6.6 Albumin 3.6 Globulin 3.0 Albumin/Globulin Ratio 1.2 Vitamin B12 160 L Urine Opiates Screen Urine Methadone Screen Ur Barbiturates Screen Ur Phencyclidine Scrn Ur Amphetamines Screen U Benzodiazepines Scrn U Oth Cocaine Metabols U Cannabinoids Screen 10/14/18 06:31 WBC RBC Hgb Hct MCV MCH MCHC RDW Plt Count MPV Neut % (Auto) Lymph % (Auto) Childress % (Auto) Eos % (Auto) Baso % (Auto) Neut # (Auto) Lymph # (Auto) Childress # (Auto) Eos # (Auto) Baso # (Auto) Sodium Potassium Chloride Carbon Dioxide Anion Gap BUN Creatinine Est GFR ( Amer) Est GFR (Non-Af Amer) POC Glucose (mg/dL) Random Glucose Calcium Phosphorus Magnesium Iron TIBC % Saturation Total Bilirubin AST ALT Alkaline Phosphatase Total Creatine Kinase 42 L CK-MB (Mass) 0.84 Troponin I < 0.0120 Total Protein Albumin Globulin Albumin/Globulin Ratio Vitamin B12 Urine Opiates Screen Urine Methadone Screen Ur Barbiturates Screen Ur Phencyclidine Scrn Ur Amphetamines Screen U Benzodiazepines Scrn U Oth Cocaine Metabols U Cannabinoids Screen Radiology Impressions: Radiology Impressions Head CT 10/13/18 03:59 IMPRESSION: No acute intracranial hemorrhage. Mild chronic white matter ischemic changes. There is a least 1 discrete right possibly a few tiny left basal ganglia lacunar type infarcts Moderate generalized volume loss [id number] generalized volume loss. Small right posterior superior parietal scalp contusion. Chest X-Ray 10/13/18 04:02 IMPRESSION: No active disease. No acute/significant interval changes. Fingerstick Blood Sugar Results: 120 Review of Systems - Review of Systems Systems not reviewed;Unavailable: Uncooperative Critical Care Progress Note - Nutrition Nutrition: Nutrition Category Date Time Status Consistent Carbohydrate [DIET] Diets 10/14/18 Breakfast Active Assessment/Plan - Assessment and Plan (Free Text) Assessment: 68 y o male PMhx anemia, A-fib, CHF, DM, Hep C (s/p tx in 2014), HTN, HLD, ?Sleep apnea (has not had sleep study), who was BiBEMS on admission with acute EtOH intoxication, also admitted to heroin abuse. Transferred to ICU for episode of rapid-Afib with RVR, necessitating Cardizem drip at time, transitioning to PO Cardizem, rate controlled at this time. Plan: Neuro: -Head CT 10/13: no acute ICH. Mild chronic white matter ischemic changes. At least 1 discrete R possibly a few tiny L basal ganglia lacunar-type infarcts. Moderate generalized volume loss. Xzen-[id number] generalized volume loss. Small R posterior superior parietal scalp contusion. -AAOx3 -CIWA protocol for EtOH withdrawal symptoms -Librium 25 mg PO q6h -Ativan 2 mg IVP q4h prn -Gabapentin bid -Restoril prn -Methadone 30 mg PO q24h -Morphine 4 mg IV q6h prn -MVT, folate, thiamine -Hx heroin abuse -Psych, Dr. Lowry, consulted for detox, recs appreciated Cardio: -Episode of A-fib with RVR last evening, upgraded to ICU, tapering down Cardizem drip, transition to PO Cardizem as tolerated -Cont to monitor -EKG on admission: A-fib with RVR -Hx A-fib, CHF, HTN, HLD -Xarelto daily -Lisinopril daily -ASA daily -Digoxin daily -Cardizem PO tid -Crestor PO hs -Cardiology consulted, Dr. Foster, recs appreciated -Trop neg Pulm: -Saturating well on NC, cont to monitor -No acute issues at this time GI: -Diabetic diet -Pepcid bid Heme: -H/H 10.2/31.4, stable, cont to monitor -Vit B12 deficiency, may be 2/2 EtOH abuse ID: -Leukopenia resolved -Vanco/zosyn for b/l heel ulcers and leg cellulitis -Podiatry consulted (Dr. Calderon), recs appreciated -Blood cxs pending Renal: -BUN/Cr 15/0.7 -Trend I's/O's -Observed voiding on bedpan without acute concerns Endo: -Hx DM2 Metformin bid Insulin Glargine 50 U sc hs ISS Fingersticks achs Hypoglycemic protocol PPX: -GI ppx: Pepcid bid -DVT ppx: Xarelto -PT eval ordered Pt seen, examined with, and plan discussed with Dr. Garcia, attending physician. Malcolm Bedolla DO PGY-1, Optical Scientist Pager #[phone] <Christopher Garcia - Last Filed: 10/14/18 17:29> CCU Subjective - Physician Review Critical Care Time Spent (in minutes): 30 CCU Objective - Vital Signs / Intake & Output Vital Signs (Last 4 hours): Vital Signs Temp Pulse Resp BP Pulse Ox 10/14/18 16:00 98.2 F 81 14 96 10/14/18 15:58 78 21 127/59 L 92 L 10/14/18 15:50 79 20 94 L 10/14/18 15:40 81 22 95 10/14/18 15:30 76 15 94 L 10/14/18 15:20 100 H 17 93 L 10/14/18 15:10 82 11 L 90 L 10/14/18 15:00 79 12 95 10/14/18 14:58 77 10 L 134/67 10/14/18 14:56 85 16 136/72 98 10/14/18 14:50 83 25 H 10/14/18 14:40 85 11 L 10/14/18 14:30 84 14 10/14/18 14:20 115 H 21 10/14/18 14:10 105 H 15 96 10/14/18 14:00 84 18 96 10/14/18 13:50 85 17 92 L 10/14/18 13:40 89 18 95 10/14/18 13:30 88 16 96 Intake and Output (Last 8hrs): Intake & Output 10/14/18 10/14/18 10/14/18 06:59 14:59 22:59 Intake Total 782 1097 250 Output Total 1300 650 0 Balance -518 447 250 Weight 265 lb 11.2 oz Intake: IV 142 13 Intake, IV Amount 40 114 left upper arm 40 114 Oral 600 970 250 Output: Urine 1300 650 0 Urine, Voided 1300 650 0 Other: # Voids Urine, Voided 0 0 # Bowel Movements 0 1 0 - Medications Active Medications: Active Medications Generic Name Dose Route Start Last Admin Trade Name Freq PRN Reason Stop Dose Admin Aspirin 81 mg 10/14/18 10:00 10/14/18 09:45 Aspirin Chewable PO 81 mg DAILY SHARIF Administration Chlordiazepoxide 25 mg 10/13/18 14:00 10/14/18 13:23 Librium PO 10/17/18 13:59 25 mg Q8H SHARIF Administration Taper Clonidine HCl 0.1 mg 10/14/18 14:00 10/14/18 17:24 Catapres PO 0.1 mg TID SHARIF Administration Cyanocobalamin 1,000 mcg 10/14/18 13:00 10/14/18 12:54 Vitamin B12 1000 Mcg Tab PO 1,000 mcg DAILY SHARIF Administration Dextrose 0 ml 10/14/18 11:54 Dextrose 50% Inj IV STAT PRN Hypoglycemia Protocol Protocol Dextrose 0 gm 10/14/18 11:54 Glutose 15 PO ONCE PRN Hypoglycemia Protocol Protocol Digoxin 0.125 mg 10/14/18 18:00 10/14/18 17:24 Digoxin PO 0.125 mg DAILY@1800 SHARIF Administration Diltiazem HCl 30 mg 10/14/18 00:00 10/14/18 15:15 Cardizem PO 30 mg Q8H SHARIF Administration Famotidine 20 mg 10/14/18 10:00 10/14/18 17:24 Pepcid PO 20 mg BID SHARIF Administration Folic Acid 1 mg 10/14/18 12:00 10/14/18 11:56 Folic Acid PO 1 mg DAILY SHARIF Administration Gabapentin 800 mg 10/14/18 10:00 10/14/18 17:23 Neurontin PO 800 mg BID SHARIF Administration Glucagon 0 mg 10/14/18 11:54 Glucagen Diagnostic Kit IM STAT PRN Hypoglycemia Protocol Protocol Diltiazem HCl 125 mg/ Sodium 125 mls @ 5 mls/hr 10/13/18 07:00 10/14/18 11:00 Chloride IV 0 mg/hr .Q24H SHARIF 0 mls/hr Titration Protocol 5 MG/HR Piperacillin Sod/Tazobactam 100 mls @ 200 mls/hr 10/13/18 22:00 10/14/18 13:23 Sod 3.375 gm/ Sodium Chloride IVPB 200 mls/hr Q8H SHARIF Administration Protocol Vancomycin HCl 1 gm/ Sodium 250 mls @ 166.7 mls/hr 10/13/18 22:30 10/13/18 23:57 Chloride IVPB 10/16/18 00:00 166.7 mls/hr Q24H SHARIF Administration Protocol Dextrose 1,000 mls @ 0 mls/hr 10/14/18 11:54 Dextrose 5% In Water 1000 Ml IV .Q0M PRN Hypoglycemia Protocol Protocol Per Protocol Insulin Glargine 50 unit 10/14/18 22:00 Lantus SC HS SHARIF Insulin Human Regular 0 unit 10/13/18 22:00 10/14/18 16:16 Novolin R SC 2 units ACHS SHARIF Administration Protocol Lisinopril 20 mg 10/14/18 10:00 10/14/18 09:48 Zestril PO 20 mg DAILY SHARIF Administration Lorazepam 2 mg 10/13/18 17:50 10/14/18 10:09 Ativan IVP 2 mg Q4H PRN Administration Agitation Metformin HCl 1,000 mg 10/14/18 10:00 10/14/18 17:23 Glucophage PO 1,000 mg BID SHARIF Administration Methadone HCl 30 mg 10/14/18 09:00 10/14/18 09:42 Methadone PO 10/19/18 08:59 30 mg Q24H SHARIF Administration Taper Morphine Sulfate 4 mg 10/13/18 21:34 Morphine IV Q6 PRN pain Multivitamins 1 tab 10/14/18 12:00 10/14/18 11:56 Hexavitamin PO 1 tab DAILY SHARIF Administration Rivaroxaban 20 mg 10/14/18 10:00 10/14/18 09:47 Xarelto PO 20 mg DAILY SHARIF Administration Rosuvastatin Calcium 20 mg 10/14/18 22:00 Crestor PO HS SHARIF Temazepam 30 mg 10/14/18 22:00 Restoril PO HS SHARIF Thiamine HCl 50 mg 10/14/18 10:00 10/14/18 09:46 Vitamin B1 Tab PO 50 mg DAILY SHARIF Administration - Patient Studies Lab Studies: Microbiology Studies 10/13/18 11:19 MRSA Culture (Admit) - Final Naris MRSA NOT DETECTED Lab Studies 10/14/18 10/14/18 10/14/18 Range/Units 16:01 15:26 14:14 WBC (4.8-10.8) K/uL RBC (4.40-5.90) Mil/uL Hgb (12.0-18.0) g/dL Hct (35.0-51.0) % MCV (80.0-94.0) fL MCH (27.0-31.0) pg MCHC (33.0-37.0) g/dL RDW (11.5-14.5) % Plt Count (130-400) K/uL MPV (7.2-11.7) fL Neut % (Auto) (50.0-75.0) % Lymph % (Auto) (20.0-40.0) % Childress % (Auto) (0.0-10.0) % Eos % (Auto) (0.0-4.0) % Baso % (Auto) (0.0-2.0) % Neut # (Auto) (1.8-7.0) K/uL Lymph # (Auto) (1.0-4.3) K/uL Childress # (Auto) (0.0-0.8) K/uL Eos # (Auto) (0.0-0.7) K/uL Baso # (Auto) (0.0-0.2) K/uL Sodium (132-148) mmol/L Potassium (3.6-5.2) mmol/L Chloride (98-107) mmol/L Carbon Dioxide (22-30) mmol/L Anion Gap (10-20) BUN (9-20) mg/dL Creatinine (0.8-1.5) mg/dL Est GFR ( Amer) Est GFR (Non-Af Amer) POC Glucose (mg/dL) 163 H (65-110) mg/dL Random Glucose (75-110) mg/dL Hemoglobin A1c (4.2-6.5) % Calcium (8.6-10.4) mg/dl Phosphorus (2.5-4.5) mg/dL Magnesium (1.6-2.3) mg/dL Iron (49-181) ug/dL TIBC (250-450) ug/dL % Saturation (20-55) Total Bilirubin (0.2-1.3) mg/dL AST (17-59) U/L ALT (21-72) U/L Alkaline Phosphatase (38-126) U/L Total Creatine Kinase 47 L (55-170) U/L CK-MB (Mass) 0.73 (0.0-3.38) ng/mL Troponin I < 0.0120 (0.00-0.120) ng/mL Total Protein (6.3-8.3) g/dL Albumin (3.5-5.0) g/dL Globulin (2.2-3.9) gm/dL Albumin/Globulin Ratio (1.0-2.1) Vitamin B12 (239-931) pg/mL Stool Occult Blood Positive H (NEGATIVE) Urine Opiates Screen (NEGATIVE) Urine Methadone Screen (NEGATIVE) Ur Barbiturates Screen (NEGATIVE) Ur Phencyclidine Scrn (NEGATIVE) Ur Amphetamines Screen (NEGATIVE) U Benzodiazepines Scrn (NEGATIVE) U Oth Cocaine Metabols (NEGATIVE) U Cannabinoids Screen (NEGATIVE) 10/14/18 10/14/18 10/14/18 Range/Units 11:19 07:35 06:31 WBC (4.8-10.8) K/uL RBC (4.40-5.90) Mil/uL Hgb (12.0-18.0) g/dL Hct (35.0-51.0) % MCV (80.0-94.0) fL MCH (27.0-31.0) pg MCHC (33.0-37.0) g/dL RDW (11.5-14.5) % Plt Count (130-400) K/uL MPV (7.2-11.7) fL Neut % (Auto) (50.0-75.0) % Lymph % (Auto) (20.0-40.0) % Childress % (Auto) (0.0-10.0) % Eos % (Auto) (0.0-4.0) % Baso % (Auto) (0.0-2.0) % Neut # (Auto) (1.8-7.0) K/uL Lymph # (Auto) (1.0-4.3) K/uL Childress # (Auto) (0.0-0.8) K/uL Eos # (Auto) (0.0-0.7) K/uL Baso # (Auto) (0.0-0.2) K/uL Sodium (132-148) mmol/L Potassium (3.6-5.2) mmol/L Chloride (98-107) mmol/L Carbon Dioxide (22-30) mmol/L Anion Gap (10-20) BUN (9-20) mg/dL Creatinine (0.8-1.5) mg/dL Est GFR ( Amer) Est GFR (Non-Af Amer) POC Glucose (mg/dL) 223 H 153 H (65-110) mg/dL Random Glucose (75-110) mg/dL Hemoglobin A1c (4.2-6.5) % Calcium (8.6-10.4) mg/dl Phosphorus (2.5-4.5) mg/dL Magnesium (1.6-2.3) mg/dL Iron (49-181) ug/dL TIBC (250-450) ug/dL % Saturation (20-55) Total Bilirubin (0.2-1.3) mg/dL AST (17-59) U/L ALT (21-72) U/L Alkaline Phosphatase (38-126) U/L Total Creatine Kinase 42 L (55-170) U/L CK-MB (Mass) 0.84 (0.0-3.38) ng/mL Troponin I < 0.0120 (0.00-0.120) ng/mL Total Protein (6.3-8.3) g/dL Albumin (3.5-5.0) g/dL Globulin (2.2-3.9) gm/dL Albumin/Globulin Ratio (1.0-2.1) Vitamin B12 (239-931) pg/mL Stool Occult Blood (NEGATIVE) Urine Opiates Screen (NEGATIVE) Urine Methadone Screen (NEGATIVE) Ur Barbiturates Screen (NEGATIVE) Ur Phencyclidine Scrn (NEGATIVE) Ur Amphetamines Screen (NEGATIVE) U Benzodiazepines Scrn (NEGATIVE) U Oth Cocaine Metabols (NEGATIVE) U Cannabinoids Screen (NEGATIVE) 10/14/18 10/14/18 10/14/18 Range/Units 06:31 06:31 06:31 WBC 7.5 D (4.8-10.8) K/uL RBC 3.64 L (4.40-5.90) Mil/uL Hgb 10.2 L (12.0-18.0) g/dL Hct 31.4 L (35.0-51.0) % MCV 86.3 (80.0-94.0) fL MCH 28.0 (27.0-31.0) pg MCHC 32.4 L (33.0-37.0) g/dL RDW 21.6 H (11.5-14.5) % Plt Count 191 (130-400) K/uL MPV 8.1 (7.2-11.7) fL Neut % (Auto) 77.4 H (50.0-75.0) % Lymph % (Auto) 12.0 L (20.0-40.0) % Childress % (Auto) 7.9 (0.0-10.0) % Eos % (Auto) 1.5 (0.0-4.0) % Baso % (Auto) 1.2 (0.0-2.0) % Neut # (Auto) 5.8 (1.8-7.0) K/uL Lymph # (Auto) 0.9 L (1.0-4.3) K/uL Childress # (Auto) 0.6 (0.0-0.8) K/uL Eos # (Auto) 0.1 (0.0-0.7) K/uL Baso # (Auto) 0.1 (0.0-0.2) K/uL Sodium 133 (132-148) mmol/L Potassium 3.9 (3.6-5.2) mmol/L Chloride 101 (98-107) mmol/L Carbon Dioxide 28 (22-30) mmol/L Anion Gap 9 L (10-20) BUN 15 (9-20) mg/dL Creatinine 0.7 L (0.8-1.5) mg/dL Est GFR ( Amer) > 60 Est GFR (Non-Af Amer) > 60 POC Glucose (mg/dL) (65-110) mg/dL Random Glucose 135 H (75-110) mg/dL Hemoglobin A1c 6.1 (4.2-6.5) % Calcium 8.5 L (8.6-10.4) mg/dl Phosphorus 2.7 (2.5-4.5) mg/dL Magnesium 1.1 L (1.6-2.3) mg/dL Iron (49-181) ug/dL TIBC (250-450) ug/dL % Saturation (20-55) Total Bilirubin 0.9 (0.2-1.3) mg/dL AST 50 (17-59) U/L ALT 24 (21-72) U/L Alkaline Phosphatase 99 (38-126) U/L Total Creatine Kinase (55-170) U/L CK-MB (Mass) (0.0-3.38) ng/mL Troponin I (0.00-0.120) ng/mL Total Protein 6.6 (6.3-8.3) g/dL Albumin 3.6 (3.5-5.0) g/dL Globulin 3.0 (2.2-3.9) gm/dL Albumin/Globulin Ratio 1.2 (1.0-2.1) Vitamin B12 (239-931) pg/mL Stool Occult Blood (NEGATIVE) Urine Opiates Screen (NEGATIVE) Urine Methadone Screen (NEGATIVE) Ur Barbiturates Screen (NEGATIVE) Ur Phencyclidine Scrn (NEGATIVE) Ur Amphetamines Screen (NEGATIVE) U Benzodiazepines Scrn (NEGATIVE) U Oth Cocaine Metabols (NEGATIVE) U Cannabinoids Screen (NEGATIVE) 10/14/18 10/14/18 10/13/18 Range/Units 00:48 00:48 22:36 WBC (4.8-10.8) K/uL RBC (4.40-5.90) Mil/uL Hgb (12.0-18.0) g/dL Hct (35.0-51.0) % MCV (80.0-94.0) fL MCH (27.0-31.0) pg MCHC (33.0-37.0) g/dL RDW (11.5-14.5) % Plt Count (130-400) K/uL MPV (7.2-11.7) fL Neut % (Auto) (50.0-75.0) % Lymph % (Auto) (20.0-40.0) % Childress % (Auto) (0.0-10.0) % Eos % (Auto) (0.0-4.0) % Baso % (Auto) (0.0-2.0) % Neut # (Auto) (1.8-7.0) K/uL Lymph # (Auto) (1.0-4.3) K/uL Childress # (Auto) (0.0-0.8) K/uL Eos # (Auto) (0.0-0.7) K/uL Baso # (Auto) (0.0-0.2) K/uL Sodium (132-148) mmol/L Potassium (3.6-5.2) mmol/L Chloride (98-107) mmol/L Carbon Dioxide (22-30) mmol/L Anion Gap (10-20) BUN (9-20) mg/dL Creatinine (0.8-1.5) mg/dL Est GFR ( Amer) Est GFR (Non-Af Amer) POC Glucose (mg/dL) (65-110) mg/dL Random Glucose (75-110) mg/dL Hemoglobin A1c (4.2-6.5) % Calcium (8.6-10.4) mg/dl Phosphorus (2.5-4.5) mg/dL Magnesium 1.3 L (1.6-2.3) mg/dL Iron 179 (49-181) ug/dL TIBC 329 (250-450) ug/dL % Saturation 54 (20-55) Total Bilirubin (0.2-1.3) mg/dL AST (17-59) U/L ALT (21-72) U/L Alkaline Phosphatase (38-126) U/L Total Creatine Kinase 41 L (55-170) U/L CK-MB (Mass) 1.09 (0.0-3.38) ng/mL Troponin I 0.0560 (0.00-0.120) ng/mL Total Protein (6.3-8.3) g/dL Albumin (3.5-5.0) g/dL Globulin (2.2-3.9) gm/dL Albumin/Globulin Ratio (1.0-2.1) Vitamin B12 160 L (239-931) pg/mL Stool Occult Blood (NEGATIVE) Urine Opiates Screen (NEGATIVE) Urine Methadone Screen (NEGATIVE) Ur Barbiturates Screen (NEGATIVE) Ur Phencyclidine Scrn (NEGATIVE) Ur Amphetamines Screen (NEGATIVE) U Benzodiazepines Scrn (NEGATIVE) U Oth Cocaine Metabols (NEGATIVE) U Cannabinoids Screen (NEGATIVE) 10/13/18 10/13/18 Range/Units 21:12 20:59 WBC (4.8-10.8) K/uL RBC (4.40-5.90) Mil/uL Hgb (12.0-18.0) g/dL Hct (35.0-51.0) % MCV (80.0-94.0) fL MCH (27.0-31.0) pg MCHC (33.0-37.0) g/dL RDW (11.5-14.5) % Plt Count (130-400) K/uL MPV (7.2-11.7) fL Neut % (Auto) (50.0-75.0) % Lymph % (Auto) (20.0-40.0) % Childress % (Auto) (0.0-10.0) % Eos % (Auto) (0.0-4.0) % Baso % (Auto) (0.0-2.0) % Neut # (Auto) (1.8-7.0) K/uL Lymph # (Auto) (1.0-4.3) K/uL Childress # (Auto) (0.0-0.8) K/uL Eos # (Auto) (0.0-0.7) K/uL Baso # (Auto) (0.0-0.2) K/uL Sodium (132-148) mmol/L Potassium (3.6-5.2) mmol/L Chloride (98-107) mmol/L Carbon Dioxide (22-30) mmol/L Anion Gap (10-20) BUN (9-20) mg/dL Creatinine (0.8-1.5) mg/dL Est GFR ( Amer) Est GFR (Non-Af Amer) POC Glucose (mg/dL) 120 H (65-110) mg/dL Random Glucose (75-110) mg/dL Hemoglobin A1c (4.2-6.5) % Calcium (8.6-10.4) mg/dl Phosphorus (2.5-4.5) mg/dL Magnesium (1.6-2.3) mg/dL Iron (49-181) ug/dL TIBC (250-450) ug/dL % Saturation (20-55) Total Bilirubin (0.2-1.3) mg/dL AST (17-59) U/L ALT (21-72) U/L Alkaline Phosphatase (38-126) U/L Total Creatine Kinase (55-170) U/L CK-MB (Mass) (0.0-3.38) ng/mL Troponin I (0.00-0.120) ng/mL Total Protein (6.3-8.3) g/dL Albumin (3.5-5.0) g/dL Globulin (2.2-3.9) gm/dL Albumin/Globulin Ratio (1.0-2.1) Vitamin B12 (239-931) pg/mL Stool Occult Blood (NEGATIVE) Urine Opiates Screen Positive H (NEGATIVE) Urine Methadone Screen Negative (NEGATIVE) Ur Barbiturates Screen Negative (NEGATIVE) Ur Phencyclidine Scrn Negative (NEGATIVE) Ur Amphetamines Screen Negative (NEGATIVE) U Benzodiazepines Scrn Negative (NEGATIVE) U Oth Cocaine Metabols Negative (NEGATIVE) U Cannabinoids Screen Negative (NEGATIVE) Laboratory Results - last 24 hr 10/13/18 10/13/18 10/13/18 20:59 21:12 22:36 WBC RBC Hgb Hct MCV MCH MCHC RDW Plt Count MPV Neut % (Auto) Lymph % (Auto) Childress % (Auto) Eos % (Auto) Baso % (Auto) Neut # (Auto) Lymph # (Auto) Childress # (Auto) Eos # (Auto) Baso # (Auto) Sodium Potassium Chloride Carbon Dioxide Anion Gap BUN Creatinine Est GFR ( Amer) Est GFR (Non-Af Amer) POC Glucose (mg/dL) 120 H Random Glucose Hemoglobin A1c Calcium Phosphorus Magnesium Iron TIBC % Saturation Total Bilirubin AST ALT Alkaline Phosphatase Total Creatine Kinase 41 L CK-MB (Mass) 1.09 Troponin I 0.0560 Total Protein Albumin Globulin Albumin/Globulin Ratio Vitamin B12 Stool Occult Blood Urine Opiates Screen Positive H Urine Methadone Screen Negative Ur Barbiturates Screen Negative Ur Phencyclidine Scrn Negative Ur Amphetamines Screen Negative U Benzodiazepines Scrn Negative U Oth Cocaine Metabols Negative U Cannabinoids Screen Negative 10/14/18 10/14/18 10/14/18 00:48 00:48 06:31 WBC 7.5 D RBC 3.64 L Hgb 10.2 L Hct 31.4 L MCV 86.3 MCH 28.0 MCHC 32.4 L RDW 21.6 H Plt Count 191 MPV 8.1 Neut % (Auto) 77.4 H Lymph % (Auto) 12.0 L Childress % (Auto) 7.9 Eos % (Auto) 1.5 Baso % (Auto) 1.2 Neut # (Auto) 5.8 Lymph # (Auto) 0.9 L Childress # (Auto) 0.6 Eos # (Auto) 0.1 Baso # (Auto) 0.1 Sodium Potassium Chloride Carbon Dioxide Anion Gap BUN Creatinine Est GFR ( Amer) Est GFR (Non-Af Amer) POC Glucose (mg/dL) Random Glucose Hemoglobin A1c Calcium Phosphorus Magnesium 1.3 L Iron 179 TIBC 329 % Saturation 54 Total Bilirubin AST ALT Alkaline Phosphatase Total Creatine Kinase CK-MB (Mass) Troponin I Total Protein Albumin Globulin Albumin/Globulin Ratio Vitamin B12 160 L Stool Occult Blood Urine Opiates Screen Urine Methadone Screen Ur Barbiturates Screen Ur Phencyclidine Scrn Ur Amphetamines Screen U Benzodiazepines Scrn U Oth Cocaine Metabols U Cannabinoids Screen 10/14/18 10/14/18 10/14/18 06:31 06:31 06:31 WBC RBC Hgb Hct MCV MCH MCHC RDW Plt Count MPV Neut % (Auto) Lymph % (Auto) Childress % (Auto) Eos % (Auto) Baso % (Auto) Neut # (Auto) Lymph # (Auto) Child[place] # (Auto) Eos # (Auto) Baso # (Auto) Sodium 133 Potassium 3.9 Chloride 101 Carbon Dioxide 28 Anion Gap 9 L BUN 15 Creatinine 0.7 L Est GFR ( Amer) > 60 Est GFR (Non-Af Amer) > 60 POC Glucose (mg/dL) Random Glucose 135 H Hemoglobin A1c 6.1 Calcium 8.5 L Phosphorus 2.7 Magnesium 1.1 L Iron TIBC % Saturation Total Bilirubin 0.9 AST 50 ALT 24 Alkaline Phosphatase 99 Total Creatine Kinase 42 L CK-MB (Mass) 0.84 Troponin I < 0.0120 Total Protein 6.6 Albumin 3.6 Globulin 3.0 Albumin/Globulin Ratio 1.2 Vitamin B12 Stool Occult Blood Urine Opiates Screen Urine Methadone Screen Ur Barbiturates Screen Ur Phencyclidine Scrn Ur Amphetamines Screen U Benzodiazepines Scrn U Oth Cocaine Metabols U Cannabinoids Screen 10/14/18 10/14/18 10/14/18 07:35 11:19 14:14 WBC RBC Hgb Hct MCV MCH MCHC RDW Plt Count MPV Neut % (Auto) Lymph % (Auto) Child[place] % (Auto) Eos % (Auto) Baso % (Auto) Neut # (Auto) Lymph # (Auto) Childress # (Auto) Eos # (Auto) Baso # (Auto) Sodium Potassium Chloride Carbon Dioxide Anion Gap BUN Creatinine Est GFR ( Amer) Est GFR (Non-Af Amer) POC Glucose (mg/dL) 153 H 223 H Random Glucose Hemoglobin A1c Calcium Phosphorus Magnesium Iron TIBC % Saturation Total Bilirubin AST ALT Alkaline Phosphatase Total Creatine Kinase 47 L CK-MB (Mass) 0.73 Troponin I < 0.0120 Total Protein Albumin Globulin Albumin/Globulin Ratio Vitamin B12 Stool Occult Blood Urine Opiates Screen Urine Methadone Screen Ur Barbiturates Screen Ur Phencyclidine Scrn Ur Amphetamines Screen U Benzodiazepines Scrn U Oth Cocaine Metabols U Cannabinoids Screen 10/14/18 10/14/18 15:26 16:01 WBC RBC Hgb Hct MCV MCH MCHC RDW Plt Count MPV Neut % (Auto) Lymph % (Auto) Child[place] % (Auto) Eos % (Auto) Baso % (Auto) Neut # (Auto) Lymph # (Auto) Child[place] # (Auto) Eos # (Auto) Baso # (Auto) Sodium Potassium Chloride Carbon Dioxide Anion Gap BUN Creatinine Est GFR ( Amer) Est GFR (Non-Af Amer) POC Glucose (mg/dL) 163 H Random Glucose Hemoglobin A1c Calcium Phosphorus Magnesium Iron TIBC % Saturation Total Bilirubin AST ALT Alkaline Phosphatase Total Creatine Kinase CK-MB (Mass) Troponin I Total Protein Albumin Globulin Albumin/Globulin Ratio Vitamin B12 Stool Occult Blood Positive H Urine Opiates Screen Urine Methadone Screen Ur Barbiturates Screen Ur Phencyclidine Scrn Ur Amphetamines Screen U Benzodiazepines Scrn U Oth Cocaine Metabols U Cannabinoids Screen Critical Care Progress Note - Nutrition Nutrition: Nutrition Category Date Time Status Consistent Carbohydrate [DIET] Diets 10/14/18 Breakfast Active Attending/Attestation - Attestation I have personally seen and examined this patient.: Yes I have fully participated in the care of the patient.: Yes I have reviewed all pertinent clinical information: Yes Notes (Text): 10/14/18 17:27 Patient seen and examined in the intensive care unit. Taper off Cardizem as tolerated Stable for transfer to floor Seen by psychiatry
[2018-10-14] MEDS: (Novolin R) Insulin Human Regular 100 units/ml vial SC SCH ×4 (07:58→22:14)
[2018-10-14] MEDS ORDERED: Magnesium Sulfate 1 gm in D5W 1 GM/100 ML BAG IVPB ONE (08:00)
[2018-10-14] MEDS ORDERED: Enoxaparin 40 mg Syringe SC SCH (10:00)
[2018-10-14] MEDS ORDERED: Digoxin 125 mcg (0.125 mg) Tab PO SCH (10:00)
--- NOTE | 2018-10-14 11:38 | CP.PCM.PN ---
Subjective - Date & Time of Evaluation Date of Evaluation: 10/14/18 - Subjective Subjective: patient seen and examined denies nausea, vomiting, diarrhea Objective - Vital Signs/Intake and Output Vital Signs (last 24 hours): Temp Pulse Resp BP Pulse Ox 98.3 F 84 14 131/73 97 10/14/18 08:00 10/14/18 11:20 10/14/18 11:20 10/14/18 10:15 10/14/18 11:20 Intake and Output: 10/14/18 10/14/18 06:59 18:59 Intake Total 1292 514 Output Total 2100 450 Balance -808 64 - Medications Medications: Current Medications Aspirin (Aspirin Chewable) 81 mg PO DAILY [facility] Last Admin: 10/14/18 09:45 Dose: 81 mg Chlordiazepoxide (Librium) 25 mg PO Q6H [facility]; Taper Stop: 10/17/18 13:59 Last Admin: 10/14/18 07:55 Dose: 25 mg Digoxin (Digoxin) 0.125 mg PO DAILY@1800 [facility] Diltiazem HCl (Cardizem) 30 mg PO Q8H [facility] Last Admin: 10/14/18 07:20 Dose: Not Given Famotidine (Pepcid) 20 mg PO BID [facility] Last Admin: 10/14/18 09:46 Dose: 20 mg Gabapentin (Neurontin) 800 mg PO BID [facility] Last Admin: 10/14/18 09:46 Dose: 800 mg Diltiazem HCl 125 mg/ Sodium (Chloride) 125 mls @ 5 mls/hr IV .Q24H [facility]; Protocol Last Titration: 10/14/18 06:11 Dose: 3 mg/hr, 3 mls/hr Piperacillin Sod/Tazobactam (Sod 3.375 gm/ Sodium Chloride) 100 mls @ 200 mls/hr IVPB Q8H [facility]; Protocol Last Admin: 10/14/18 06:01 Dose: 200 mls/hr Vancomycin HCl 1 gm/ Sodium (Chloride) 250 mls @ 166.7 mls/hr IVPB Q24H [facility]; Protocol Stop: 10/16/18 00:00 Last Admin: 10/13/18 23:57 Dose: 166.7 mls/hr Insulin Glargine (Lantus) 50 unit SC [facility] Insulin Human Regular (Novolin R) 0 unit SC [facility]; Protocol Last Admin: 10/14/18 07:58 Dose: 2 units Lisinopril (Zestril) 20 mg PO DAILY [facility] Last Admin: 10/14/18 09:48 Dose: 20 mg Lorazepam (Ativan) 2 mg IVP Q4H PRN PRN Reason: Agitation Last Admin: 10/14/18 10:09 Dose: 2 mg Metformin HCl (Glucophage) 1,000 mg PO BID [facility] Last Admin: 10/14/18 09:46 Dose: 1,000 mg Methadone HCl (Methadone) 30 mg PO Q24H [facility]; Taper Stop: 10/19/18 08:59 Last Admin: 10/14/18 09:42 Dose: 30 mg Morphine Sulfate (Morphine) 4 mg IV Q6 PRN PRN Reason: pain Rivaroxaban (Xarelto) 20 mg PO DAILY [facility] Last Admin: 10/14/18 09:47 Dose: 20 mg Rosuvastatin Calcium (Crestor) 20 mg PO HS [facility] Temazepam (Restoril) 30 mg PO HS PRN PRN Reason: Insomnia Thiamine HCl (Vitamin B1 Tab) 50 mg PO DAILY [facility] Last Admin: 10/14/18 09:46 Dose: 50 mg - Labs Labs: 10/14/18 06:31 10/14/18 06:31 PT 13.8 SECONDS (9.7-12.2) H 10/13/18 06:18 INR 1.3 10/13/18 06:18 APTT 28 SECONDS (21-34) 10/13/18 06:18 - Constitutional Appears: Well - Head Exam Head Exam: ATRAUMATIC, NORMAL INSPECTION, NORMOCEPHALIC - Eye Exam Eye Exam: EOMI, Normal appearance, PERRL Pupil Exam: NORMAL ACCOMODATION, PERRL - ENT Exam ENT Exam: Mucous Membranes Moist, Normal Exam - Neck Exam Neck Exam: Full ROM, Normal Inspection. absent: Lymphadenopathy - Respiratory Exam Respiratory Exam: Decreased Breath Sounds - Cardiovascular Exam Cardiovascular Exam: REGULAR RHYTHM, +S1, +S2 - GI/Abdominal Exam GI & Abdominal Exam: Soft, Diminished Bowel Sounds - Rectal Exam Rectal Exam: Deferred Assessment and Plan - Assessment and Plan (Free Text) Plan: treatment plan discussed with staff medication reviewed aspirin lorazepam cardizem clonidine crestor metformin lantus librium head ct scan and chest xray have been reviewed vital signs reviewed
[2018-10-14] MEDS ORDERED: Dextrose 50% SYRINGE Inj (50 ml) IV PRN (11:54)
[2018-10-14] MEDS ORDERED: Glucagon Recombinant 1 mg Inj IM PRN (11:54)
[2018-10-14] MEDS: Multiple Vitamins Tab PO SCH (11:56)
--- NOTE | 2018-10-14 13:04 | PCM.PYCHPN ---
Psychiatric Progress Note - Psychiatric Progress Note Patient seen today, length of contact: 17 min Patient Chief Complaint: "So so" Problems Identified/Issues Discussed: The pt is seen, chart reviewed, case is discussed with staff. Support and psychoeducation given, SC used briefly The pt is improving slowly but needs more time due to severity of symptoms and relapse risk. No SEs from medications, risks discussed. After care discussed - wants [facility] and then drug rehab Medication Change: Yes (detox changes daily) Medical Record Reviewed: Yes Mental Status Examination - Cognitive Function Orientation: Person, Place, Situation, Time Memory: Impaired Attention: Poor Concentration: Poor Association: WNL Fund of Knowledge: WNL - Mood Mood: Depressed, Anxious - Affect Affect: Constricted - Speech Speech: Appropriate - Formal Thought Process Formal Thought Process: No Impairment - Suicidal Ideation Suicidal Ideation: No - Homicidal Ideation Homicidal Ideation: No Goal/Treatment Plan - Goal/Treatment Plan Need for Continued Stay: Other (medical) Progress Toward Problem(s) and Goals/Treatment Plan: Taper with methadone and librium Gabapentin for augmentation if needed As needed medications All risks, benefits and alternatives of the meds discussed, and the pt agreed and understood. Supportive therapy and psychoeducation SC for abstinence Encourage MAT Refer to rehab or IOP, and self-help groups Teach healthy lifestyle methods, i.e. diet, exercise, meditation Smoking cessation with SC Nicotine patch if needed
[2018-10-14 14:47] LABS: CK-MB 0.73 ng/mL (0.0-3.38)
[2018-10-14] MEDS: Digoxin 125 mcg (0.125 mg) Tab PO SCH (17:24)
--- NOTE | 2018-10-14 18:47 | CP.PCM.CON ---
<Sis Green - Last Filed: 10/14/18 18:41> History of Present Illness - History of Present Illness History of Present Illness: Sis Green, PGY-1, Cardiology Consult Note for Dr. Foster 68 year old male with past medical history of anemia, CHF, Hepatitis C treated in 2014, HLD, RYAN, diabetes mellitus, hypertension, and atrial fibrillation presents with multiple episodes of syncope. Patient reports having 12 episodes of syncope since 03/2018. Patient has hit his head a few weeks ago and has progressively become weaker. Patient was very weak and dizzy and was unable to get to the phone but was able to get to the door and call for help. Neighbor called 911. Patient denies any other symptoms at this time but reports dyspnea on exertion. PMH: as stated above PSH: bilateral knee replacement, right carpal tunnel, umbilical hernia repair, malignant melanoma removal FMHx: Diabetes Mellitus Allergies: NKDA SHx: retired, never smoked, drinks 18 cans of beer daily, 10 bags of heroin daily since he was 20 years old PMD: [facility] Informatics Manager: Dr. Sudarshan Gomez Review of Systems - Review of Systems Review of Systems: except as mentioned in HPI Past Patient History - Infectious Disease Hx of Infectious Diseases: None - Past Medical History & Family History Past Medical History?: Yes - Past Social History Smoking Status: Never Smoked Occupation: retired Alcohol: Other (drinks about 18 cans beer daily) Drugs: Opiates Home Situation {Lives}: Alone - CARDIAC Hx Congestive Heart Failure: Yes (A-fib) Hx Hypercholesterolemia: Yes Hx Hypertension: Yes - PULMONARY Hx Sleep Apnea: Yes - NEUROLOGICAL Hx Seizures: No - HEENT Hx HEENT Problems: No - RENAL Hx Chronic Kidney Disease: No - ENDOCRINE/METABOLIC Hx Diabetes Mellitus Type 2: Yes - HEMATOLOGICAL/ONCOLOGICAL Hx Anemia: Yes Hx Human Immunodeficiency Virus (HIV): No - INTEGUMENTARY Hx Dermatological Problems: Yes Hx Melanoma: Yes (Malignant Melonoma removed 1996) - MUSCULOSKELETAL/RHEUMATOLOGICAL Hx Falls: Yes - GASTROINTESTINAL Hx Gastrointestinal Disorders: No - GENITOURINARY/GYNECOLOGICAL Hx Sexually Transmitted Disorders: No - PSYCHIATRIC Hx Substance Use: Yes (heroin 10 bags a day) - SURGICAL HISTORY Hx Surgeries: Yes Hx Musculoskeletal Surgery: Yes (BILATERAL KNEE, CARPAL TUNNEL) Other/Comment: Umbilical Hernia Repair. B/L Knee Artho,. lymph nodes removeded from jamal axilla - ANESTHESIA Hx Anesthesia: Yes Hx Anesthesia Reactions: No Hx Malignant Hyperthermia: No Meds Allergies/Adverse Reactions: Allergies Allergy/AdvReac Type Severity Reaction Status Date / Time No Known Allergies Allergy Verified 10/12/18 23:37 - Medications Medications: Current Medications Aspirin (Aspirin Chewable) 81 mg PO DAILY [facility] Last Admin: 10/14/18 09:45 Dose: 81 mg Chlordiazepoxide (Librium) 25 mg PO Q8H [facility]; Taper Stop: 10/17/18 13:59 Last Admin: 10/14/18 13:23 Dose: 25 mg Clonidine HCl (Catapres) 0.1 mg PO TID [facility] Last Admin: 10/14/18 17:24 Dose: 0.1 mg Cyanocobalamin (Vitamin B12 1000 Mcg Tab) 1,000 mcg PO DAILY [facility] Last Admin: 10/14/18 12:54 Dose: 1,000 mcg Dextrose (Dextrose 50% Inj) 0 ml IV STAT PRN; Protocol PRN Reason: Hypoglycemia Protocol Dextrose (Glutose 15) 0 gm PO ONCE PRN; Protocol PRN Reason: Hypoglycemia Protocol Digoxin (Digoxin) 0.125 mg PO DAILY@1800 [facility] Last Admin: 10/14/18 17:24 Dose: 0.125 mg Diltiazem HCl (Cardizem) 30 mg PO Q8H [facility] Last Admin: 10/14/18 15:15 Dose: 30 mg Famotidine (Pepcid) 20 mg PO BID [facility] Last Admin: 10/14/18 17:24 Dose: 20 mg Folic Acid (Folic Acid) 1 mg PO DAILY [facility] Last Admin: 10/14/18 11:56 Dose: 1 mg Gabapentin (Neurontin) 800 mg PO BID [facility] Last Admin: 10/14/18 17:23 Dose: 800 mg Glucagon (Glucagen Diagnostic Kit) 0 mg IM STAT PRN; Protocol PRN Reason: Hypoglycemia Protocol Piperacillin Sod/Tazobactam (Sod 3.375 gm/ Sodium Chloride) 100 mls @ 200 mls/hr IVPB Q8H [facility]; Protocol Last Admin: 10/14/18 13:23 Dose: 200 mls/hr Vancomycin HCl 1 gm/ Sodium (Chloride) 250 mls @ 166.7 mls/hr IVPB Q24H [facility]; Protocol Stop: 10/16/18 00:00 Last Admin: 10/13/18 23:57 Dose: 166.7 mls/hr Dextrose (Dextrose 5% In Water 1000 Ml) 1,000 mls @ 0 mls/hr IV .Q0M PRN; Protocol PRN Reason: Hypoglycemia Protocol Insulin Glargine (Lantus) 50 unit SC HS [facility] Insulin Human Regular (Novolin R) 0 unit SC ACHS [facility]; Protocol Last Admin: 10/14/18 16:16 Dose: 2 units Lisinopril (Zestril) 20 mg PO DAILY [facility] Last Admin: 10/14/18 09:48 Dose: 20 mg Lorazepam (Ativan) 2 mg IVP Q4H PRN PRN Reason: Agitation Last Admin: 10/14/18 10:09 Dose: 2 mg Metformin HCl (Glucophage) 1,000 mg PO BID [facility] Last Admin: 10/14/18 17:23 Dose: 1,000 mg Methadone HCl (Methadone) 30 mg PO Q24H [facility]; Taper Stop: 10/19/18 08:59 Last Admin: 10/14/18 09:42 Dose: 30 mg Morphine Sulfate (Morphine) 4 mg IV Q6 PRN PRN Reason: pain Multivitamins (Hexavitamin) 1 tab PO DAILY [facility] Last Admin: 10/14/18 11:56 Dose: 1 tab Rivaroxaban (Xarelto) 20 mg PO DAILY [facility] Last Admin: 10/14/18 09:47 Dose: 20 mg Rosuvastatin Calcium (Crestor) 20 mg PO HS [facility] Temazepam (Restoril) 30 mg PO HS [facility] Thiamine HCl (Vitamin B1 Tab) 50 mg PO DAILY [facility] Last Admin: 10/14/18 09:46 Dose: 50 mg Physical Exam - Constitutional Appears: Well, Non-toxic, No Acute Distress - Head Exam Head Exam: ATRAUMATIC, NORMAL INSPECTION, NORMOCEPHALIC - Eye Exam Eye Exam: EOMI, PERRL - ENT Exam ENT Exam: Mucous Membranes Moist - Respiratory Exam Respiratory Exam: Clear to Auscultation Bilateral, NORMAL BREATHING PATTERN - Cardiovascular Exam Cardiovascular Exam: Tachycardia, Irregular Rhythm, +S1, +S2 - GI/Abdominal Exam GI & Abdominal Exam: Normal Bowel Sounds, Soft. absent: Tenderness - Extremities Exam Extremities exam: Positive for: full ROM, normal inspection - Neurological Exam Neurological exam: Alert, CN II-XII Intact, Oriented x3 - Skin Skin Exam: Dry, Intact Results - Vital Signs Recent Vital Signs: Last Vital Signs Temp 98.2 F 10/14/18 16:00 Pulse 90 10/14/18 18:10 Resp 16 10/14/18 18:10 BP 129/86 10/14/18 17:59 Pulse Ox 93 L 10/14/18 18:10 - Labs Result Diagrams: 10/14/18 06:31 10/14/18 06:31 Labs: Laboratory Results - last 24 hr 10/13/18 10/13/18 10/13/18 20:59 21:12 22:36 WBC RBC Hgb Hct MCV MCH MCHC RDW Plt Count MPV Neut % (Auto) Lymph % (Auto) Howard % (Auto) Eos % (Auto) Baso % (Auto) Neut # (Auto) Lymph # (Auto) Howard # (Auto) Eos # (Auto) Baso # (Auto) Sodium Potassium Chloride Carbon Dioxide Anion Gap BUN Creatinine Est GFR ( Amer) Est GFR (Non-Af Amer) POC Glucose (mg/dL) 120 H Random Glucose Hemoglobin A1c Calcium Phosphorus Magnesium Iron TIBC % Saturation Total Bilirubin AST ALT Alkaline Phosphatase Total Creatine Kinase 41 L CK-MB (Mass) 1.09 Troponin I 0.0560 Total Protein Albumin Globulin Albumin/Globulin Ratio Vitamin B12 Stool Occult Blood Urine Opiates Screen Positive H Urine Methadone Screen Negative Ur Barbiturates Screen Negative Ur Phencyclidine Scrn Negative Ur Amphetamines Screen Negative U Benzodiazepines Scrn Negative U Oth Cocaine Metabols Negative U Cannabinoids Screen Negative 10/14/18 10/14/18 10/14/18 00:48 00:48 06:31 WBC 7.5 D RBC 3.64 L Hgb 10.2 L Hct 31.4 L MCV 86.3 MCH 28.0 MCHC 32.4 L RDW 21.6 H Plt Count 191 MPV 8.1 Neut % (Auto) 77.4 H Lymph % (Auto) 12.0 L Howard % (Auto) 7.9 Eos % (Auto) 1.5 Baso % (Auto) 1.2 Neut # (Auto) 5.8 Lymph # (Auto) 0.9 L Howard # (Auto) 0.6 Eos # (Auto) 0.1 Baso # (Auto) 0.1 Sodium Potassium Chloride Carbon Dioxide Anion Gap BUN Creatinine Est GFR ( Amer) Est GFR (Non-Af Amer) POC Glucose (mg/dL) Random Glucose Hemoglobin A1c Calcium Phosphorus Magnesium 1.3 L Iron 179 TIBC 329 % Saturation 54 Total Bilirubin AST ALT Alkaline Phosphatase Total Creatine Kinase CK-MB (Mass) Troponin I Total Protein Albumin Globulin Albumin/Globulin Ratio Vitamin B12 160 L Stool Occult Blood Urine Opiates Screen Urine Methadone Screen Ur Barbiturates Screen Ur Phencyclidine Scrn Ur Amphetamines Screen U Benzodiazepines Scrn U Oth Cocaine Metabols U Cannabinoids Screen 10/14/18 10/14/18 10/14/18 06:31 06:31 06:31 WBC RBC Hgb Hct MCV MCH MCHC RDW Plt Count MPV Neut % (Auto) Lymph % (Auto) Howard % (Auto) Eos % (Auto) Baso % (Auto) Neut # (Auto) Lymph # (Auto) Howard # (Auto) Eos # (Auto) Baso # (Auto) Sodium 133 Potassium 3.9 Chloride 101 Carbon Dioxide 28 Anion Gap 9 L BUN 15 Creatinine 0.7 L Est GFR ( Amer) > 60 Est GFR (Non-Af Amer) > 60 POC Glucose (mg/dL) Random Glucose 135 H Hemoglobin A1c 6.1 Calcium 8.5 L Phosphorus 2.7 Magnesium 1.1 L Iron TIBC % Saturation Total Bilirubin 0.9 AST 50 ALT 24 Alkaline Phosphatase 99 Total Creatine Kinase 42 L CK-MB (Mass) 0.84 Troponin I < 0.0120 Total Protein 6.6 Albumin 3.6 Globulin 3.0 Albumin/Globulin Ratio 1.2 Vitamin B12 Stool Occult Blood Urine Opiates Screen Urine Methadone Screen Ur Barbiturates Screen Ur Phencyclidine Scrn Ur Amphetamines Screen U Benzodiazepines Scrn U Oth Cocaine Metabols U Cannabinoids Screen 10/14/18 10/14/18 10/14/18 07:35 11:19 14:14 WBC RBC Hgb Hct MCV MCH MCHC RDW Plt Count MPV Neut % (Auto) Lymph % (Auto) Howard % (Auto) Eos % (Auto) Baso % (Auto) Neut # (Auto) Lymph # (Auto) Howard # (Auto) Eos # (Auto) Baso # (Auto) Sodium Potassium Chloride Carbon Dioxide Anion Gap BUN Creatinine Est GFR ( Amer) Est GFR (Non-Af Amer) POC Glucose (mg/dL) 153 H 223 H Random Glucose Hemoglobin A1c Calcium Phosphorus Magnesium Iron TIBC % Saturation Total Bilirubin AST ALT Alkaline Phosphatase Total Creatine Kinase 47 L CK-MB (Mass) 0.73 Troponin I < 0.0120 Total Protein Albumin Globulin Albumin/Globulin Ratio Vitamin B12 Stool Occult Blood Urine Opiates Screen Urine Methadone Screen Ur Barbiturates Screen Ur Phencyclidine Scrn Ur Amphetamines Screen U Benzodiazepines Scrn U Oth Cocaine Metabols U Cannabinoids Screen 10/14/18 10/14/18 15:26 16:01 WBC RBC Hgb Hct MCV MCH MCHC RDW Plt Count MPV Neut % (Auto) Lymph % (Auto) Howard % (Auto) Eos % (Auto) Baso % (Auto) Neut # (Auto) Lymph # (Auto) Howard # (Auto) Eos # (Auto) Baso # (Auto) Sodium Potassium Chloride Carbon Dioxide Anion Gap BUN Creatinine Est GFR ( Amer) Est GFR (Non-Af Amer) POC Glucose (mg/dL) 163 H Random Glucose Hemoglobin A1c Calcium Phosphorus Magnesium Iron TIBC % Saturation Total Bilirubin AST ALT Alkaline Phosphatase Total Creatine Kinase CK-MB (Mass) Troponin I Total Protein Albumin Globulin Albumin/Globulin Ratio Vitamin B12 Stool Occult Blood Positive H Urine Opiates Screen Urine Methadone Screen Ur Barbiturates Screen Ur Phencyclidine Scrn Ur Amphetamines Screen U Benzodiazepines Scrn U Oth Cocaine Metabols U Cannabinoids Screen Assessment & Plan - Assessment and Plan (Free Text) Assessment: syncope anemia CHF HLD RYAN diabetes mellitus hypertension atrial fibrillation Plan: syncope anemia CHF HLD RYAN diabetes mellitus hypertension atrial fibrillation Head CT: no acute ICH but 1 discrete right basal ganglia CXR: no acute findings EKG: atrial fibrillation right RVR with HR: 113 Tropx4: negative BNP: 2150 Will follow up echocardiogram, random cortisol Will follow up orthostatic vitals as possible cause of syncope Medications: aspirin 81 mg daily clonidine 0.1 mg TID digoxin 0.125 mg daily cardizem 30 mg Q8 lisinopril 20 mg daily metformin 1000 mg BID xarelto 20 mg daily rosuvastatin 20 mg daily - Date & Time Date: 10/14/18 Time: 18:47 <Yayo Foster - Last Filed: 10/29/18 19:19> Results - Vital Signs Recent Vital Signs: Last Vital Signs Temp 97.4 F L 10/23/18 15:00 Pulse 76 10/23/18 15:00 Resp 20 10/23/18 15:00 BP 125/74 10/23/18 17:37 Pulse Ox 97 10/23/18 15:00 - Labs Result Diagrams: 10/21/18 17:03 10/21/18 17:03 Assessment & Plan (1) Atrial fibrillation with rapid ventricular response Status: Acute (2) Dizziness Status: Acute (3) Hyperglycemia Status: Acute (4) Hyperlipemia Status: Acute (5) Syncope Status: Acute (6) Anemia Status: Acute (7) Atrial fibrillation Status: Acute Attending/Attestation - Attestation I have personally seen and examined this patient.: Yes I have fully participated in the care of the patient.: Yes I have reviewed all pertinent clinical information: Yes Notes (Text): 10/29/18 19:18 Syncope etiology unclear hx of afib, chf BNP elevated no recent ischemic w/u rate control ac plan for ischemic evaluation once euvolemic
[2018-10-14] MEDS: (Lantus) Insulin Glargine, Recombinant SC SCH (21:33)
[2018-10-15] MEDS: Piperacillin/Tazobact 3.375 GM in Sodium Chloride 100 ML IVPB SCH ×3 (05:27→21:36)
[2018-10-15 07:34] LABS: BASO # 0.1 K/uL (0.0-0.2); BASO % 1.4 % (0.0-2.0); EOS # 0.3 K/uL (0.0-0.7); EOS % 5.3 % (0.0-4.0); HEMOGLOBIN 10.2 g/dL (12.0-18.0); MEAN CORPUSCULAR HEMOGLOBIN 28.4 pg (27.0-31.0); MEAN CORPUSCULAR HGB CONC 32.2 g/dL (33.0-37.0); MEAN PLATELET VOLUME 8.1 fL (7.2-11.7); MONO # 0.5 K/uL (0.0-0.8); MONO % 9.6 % (0.0-10.0); NEUT # 3.2 K/uL (1.8-7.0); NEUT % 63.7 % (50.0-75.0); NRBC % 0.1 % (0.0-2.0); RBC 3.58 Mil/uL (4.40-5.90); RED CELL DISTRIBUTION WIDTH 20.9 % (11.5-14.5)
[2018-10-15 07:57] LABS: MEAN CELL VOLUME 88.3 fL (80.0-94.0)
[2018-10-15 08:41] LABS: ALB/GLOB RATIO 1.1 (1.0-2.1); ALBUMIN 3.2 g/dL (3.5-5.0); ALT/SGPT 21 U/L (21-72); AST/SGOT 30 U/L (17-59); BLOOD UREA NITROGEN 17 mg/dL (9-20); CALCIUM 8.6 mg/dl (8.6-10.4); GFR NON-AFRICAN AMERICAN > 60
[2018-10-15] MEDS: Multiple Vitamins Tab PO SCH (09:34)
[2018-10-15] MEDS: (Novolin R) Insulin Human Regular 100 units/ml vial SC SCH ×4 (09:35→21:54)
--- NOTE | 2018-10-15 09:51 | CP.PCM.PN ---
<Sis Green - Last Filed: 10/15/18 10:49> Subjective - Date & Time of Evaluation Date of Evaluation: 10/15/18 Time of Evaluation: 09:50 - Subjective Subjective: Sis Green, PGY-1, Cardiology Progress Note for Dr. Foster Patient seen and evaluated at bedside. Patient had no acute overnight events. Patient denies any acute complaints at this time. Objective - Vital Signs/Intake and Output Vital Signs (last 24 hours): Temp Pulse Resp BP Pulse Ox 97.8 F 76 20 143/81 96 10/15/18 08:11 10/15/18 08:11 10/15/18 08:11 10/15/18 08:11 10/15/18 08:11 Intake and Output: 10/15/18 10/15/18 06:59 18:59 Intake Total 820 Output Total 825 Balance -5 - Medications Medications: Current Medications Aspirin (Aspirin Chewable) 81 mg PO DAILY [facility] Last Admin: 10/15/18 09:34 Dose: 81 mg Chlordiazepoxide (Librium) 25 mg PO Q8H [facility]; Taper Stop: 10/17/18 13:59 Last Admin: 10/15/18 05:33 Dose: 25 mg Clonidine HCl (Catapres) 0.1 mg PO TID [facility] Last Admin: 10/15/18 09:34 Dose: 0.1 mg Cyanocobalamin (Vitamin B12 1000 Mcg Tab) 1,000 mcg PO DAILY [facility] Last Admin: 10/15/18 09:35 Dose: 1,000 mcg Dextrose (Dextrose 50% Inj) 0 ml IV STAT PRN; Protocol PRN Reason: Hypoglycemia Protocol Dextrose (Glutose 15) 0 gm PO ONCE PRN; Protocol PRN Reason: Hypoglycemia Protocol Digoxin (Digoxin) 0.125 mg PO DAILY@1800 [facility] Last Admin: 10/14/18 17:24 Dose: 0.125 mg Diltiazem HCl (Cardizem) 30 mg PO Q8H [facility] Last Admin: 10/15/18 09:00 Dose: 30 mg Famotidine (Pepcid) 20 mg PO BID [facility] Last Admin: 10/15/18 09:34 Dose: 20 mg Folic Acid (Folic Acid) 1 mg PO DAILY [facility] Last Admin: 10/15/18 09:35 Dose: 1 mg Gabapentin (Neurontin) 800 mg PO BID [facility] Last Admin: 10/15/18 09:35 Dose: 800 mg Glucagon (Glucagen Diagnostic Kit) 0 mg IM STAT PRN; Protocol PRN Reason: Hypoglycemia Protocol Piperacillin Sod/Tazobactam (Sod 3.375 gm/ Sodium Chloride) 100 mls @ 200 mls/hr IVPB Q8H [facility]; Protocol Last Admin: 10/15/18 05:27 Dose: 200 mls/hr Vancomycin HCl 1 gm/ Sodium (Chloride) 250 mls @ 166.7 mls/hr IVPB Q24H [facility]; Protocol Stop: 10/16/18 00:00 Last Admin: 10/14/18 21:32 Dose: 166.7 mls/hr Dextrose (Dextrose 5% In Water 1000 Ml) 1,000 mls @ 0 mls/hr IV .Q0M PRN; Protocol PRN Reason: Hypoglycemia Protocol Insulin Glargine (Lantus) 50 unit SC [facility] Last Admin: 10/14/18 21:33 Dose: 50 units Insulin Human Regular (Novolin R) 0 unit SC [facility]; Protocol Last Admin: 10/15/18 09:35 Dose: Not Given Lisinopril (Zestril) 20 mg PO DAILY [facility] Last Admin: 10/15/18 09:34 Dose: 20 mg Lorazepam (Ativan) 2 mg IVP Q4H PRN PRN Reason: Agitation Last Admin: 10/15/18 09:42 Dose: 2 mg Metformin HCl (Glucophage) 1,000 mg PO BID [facility] Last Admin: 10/15/18 09:34 Dose: 1,000 mg Methadone HCl (Methadone) 20 mg PO Q24H [facility]; Taper Stop: 10/19/18 08:59 Last Admin: 10/15/18 09:34 Dose: 20 mg Morphine Sulfate (Morphine) 4 mg IV Q6 PRN PRN Reason: pain Multivitamins (Hexavitamin) 1 tab PO DAILY [facility] Last Admin: 10/15/18 09:34 Dose: 1 tab Rivaroxaban (Xarelto) 20 mg PO DAILY [facility] Last Admin: 10/15/18 09:35 Dose: 20 mg Rosuvastatin Calcium (Crestor) 20 mg PO [facility] Last Admin: 10/14/18 21:33 Dose: 20 mg Temazepam (Restoril) 30 mg PO [facility] Last Admin: 10/14/18 21:33 Dose: 30 mg Thiamine HCl (Vitamin B1 Tab) 50 mg PO DAILY [facility] Last Admin: 10/15/18 09:35 Dose: 50 mg - Labs Labs: 10/15/18 07:25 10/15/18 07:37 PT 13.8 SECONDS (9.7-12.2) H 10/13/18 06:18 INR 1.3 10/13/18 06:18 APTT 28 SECONDS (21-34) 10/13/18 06:18 - Constitutional Appears: Well, Non-toxic, No Acute Distress - Head Exam Head Exam: ATRAUMATIC, NORMAL INSPECTION, NORMOCEPHALIC - Eye Exam Eye Exam: EOMI, PERRL - ENT Exam ENT Exam: Mucous Membranes Moist - Respiratory Exam Respiratory Exam: Clear to Auscultation Bilateral, NORMAL BREATHING PATTERN - Cardiovascular Exam Cardiovascular Exam: Tachycardia, Irregular Rhythm, +S1, +S2 - GI/Abdominal Exam GI & Abdominal Exam: Normal Bowel Sounds, Soft. absent: Tenderness - Extremities Exam Extremities exam: Positive for: full ROM, normal inspection - Neurological Exam Neurological exam: Alert, CN II-XII Intact, Oriented x3 - Skin Skin Exam: Dry, Intact Assessment and Plan - Assessment and Plan (Free Text) Assessment: syncope anemia CHF HLD RYAN diabetes mellitus hypertension atrial fibrillation Plan: syncope anemia CHF HLD RYAN diabetes mellitus hypertension atrial fibrillation Head CT: no acute ICH but 1 discrete right basal ganglia CXR: no acute findings EKG: atrial fibrillation right RVR with HR: 113 Orthostatic vitals: BP was 113/53 while lying, 125/61 while sitting, and 119/70 while standing Tropx4: negative BNP: 2150 Cortisol: 5.8 HgbA1c: 6.1 Will follow up echocardiogram Medications: aspirin 81 mg daily clonidine 0.1 mg TID digoxin 0.125 mg daily cardizem 30 mg Q8 lisinopril 20 mg daily metformin 1000 mg BID xarelto 20 mg daily rosuvastatin 20 mg daily <Yayo Foster - Last Filed: 10/15/18 23:19> Objective - Vital Signs/Intake and Output Vital Signs (last 24 hours): Temp Pulse Resp BP Pulse Ox 97.9 F 72 20 127/81 99 10/15/18 15:50 10/15/18 16:00 10/15/18 15:50 10/15/18 15:50 10/15/18 15:50 Intake and Output: 10/15/18 10/16/18 18:59 06:59 Intake Total 450 Output Total 400 Balance 450 -400 - Medications Medications: Current Medications Aspirin (Aspirin Chewable) 81 mg PO DAILY [facility] Last Admin: 10/15/18 09:34 Dose: 81 mg Chlordiazepoxide (Librium) 25 mg PO Q12H [facility]; Taper Stop: 10/17/18 13:59 Last Admin: 10/15/18 13:33 Dose: 25 mg Clonidine HCl (Catapres) 0.1 mg PO TID [facility] Last Admin: 10/15/18 17:29 Dose: 0.1 mg Cyanocobalamin (Vitamin B12 1000 Mcg Tab) 1,000 mcg PO DAILY [facility] Last Admin: 10/15/18 09:35 Dose: 1,000 mcg Dextrose (Dextrose 50% Inj) 0 ml IV STAT PRN; Protocol PRN Reason: Hypoglycemia Protocol Dextrose (Glutose 15) 0 gm PO ONCE PRN; Protocol PRN Reason: Hypoglycemia Protocol Digoxin (Digoxin) 0.125 mg PO DAILY@1800 [facility] Last Admin: 10/15/18 17:30 Dose: 0.125 mg Diltiazem HCl (Cardizem) 30 mg PO Q8H [facility] Last Admin: 10/15/18 16:29 Dose: 30 mg Famotidine (Pepcid) 20 mg PO BID [facility] Last Admin: 10/15/18 17:30 Dose: 20 mg Folic Acid (Folic Acid) 1 mg PO DAILY [facility] Last Admin: 10/15/18 09:35 Dose: 1 mg Gabapentin (Neurontin) 800 mg PO BID [facility] Last Admin: 10/15/18 18:03 Dose: 800 mg Glucagon (Glucagen Diagnostic Kit) 0 mg IM STAT PRN; Protocol PRN Reason: Hypoglycemia Protocol Piperacillin Sod/Tazobactam (Sod 3.375 gm/ Sodium Chloride) 100 mls @ 200 mls/hr IVPB Q8H [facility]; Protocol Last Admin: 10/15/18 21:36 Dose: 200 mls/hr Vancomycin HCl 1 gm/ Sodium (Chloride) 250 mls @ 166.7 mls/hr IVPB Q24H [facility]; Protocol Stop: 10/16/18 00:00 Last Admin: 10/15/18 21:36 Dose: 166.7 mls/hr Dextrose (Dextrose 5% In Water 1000 Ml) 1,000 mls @ 0 mls/hr IV .Q0M PRN; Protocol PRN Reason: Hypoglycemia Protocol Insulin Glargine (Lantus) 50 unit SC [facility] Last Admin: 10/15/18 21:37 Dose: 50 units Insulin Human Regular (Novolin R) 0 unit SC [facility]; Protocol Last Admin: 10/15/18 21:54 Dose: Not Given Lisinopril (Zestril) 20 mg PO DAILY [facility] Last Admin: 10/15/18 09:34 Dose: 20 mg Lorazepam (Ativan) 2 mg IVP Q4H PRN PRN Reason: Agitation Last Admin: 10/15/18 19:44 Dose: 2 mg Metformin HCl (Glucophage) 1,000 mg PO BID [facility] Last Admin: 10/15/18 17:29 Dose: 1,000 mg Methadone HCl (Methadone) 20 mg PO Q24H [facility]; Taper Stop: 10/19/18 08:59 Last Admin: 10/15/18 09:34 Dose: 20 mg Morphine Sulfate (Morphine) 4 mg IV Q6 PRN PRN Reason: pain Multivitamins (Hexavitamin) 1 tab PO DAILY [facility] Last Admin: 10/15/18 09:34 Dose: 1 tab Rivaroxaban (Xarelto) 20 mg PO DAILY [facility] Last Admin: 10/15/18 09:35 Dose: 20 mg Rosuvastatin Calcium (Crestor) 20 mg PO [facility] Last Admin: 10/15/18 21:37 Dose: 20 mg Temazepam (Restoril) 30 mg PO [facility] Last Admin: 10/15/18 21:37 Dose: 30 mg Thiamine HCl (Vitamin B1 Tab) 50 mg PO DAILY [facility] Last Admin: 10/15/18 09:35 Dose: 50 mg - Labs Labs: 10/15/18 07:25 10/15/18 07:37 PT 13.8 SECONDS (9.7-12.2) H 10/13/18 06:18 INR 1.3 10/13/18 06:18 APTT 28 SECONDS (21-34) 10/13/18 06:18 Attending/Attestation - Attestation I have personally seen and examined this patient.: Yes I have fully participated in the care of the patient.: Yes I have reviewed all pertinent clinical information, including history, physical exam and plan: Yes Notes (Text): 10/15/18 23:18 Etiology of syncope unclear echo reviewed ? CAD
[2018-10-15] MEDS: Digoxin 125 mcg (0.125 mg) Tab PO SCH (17:30)
--- NOTE | 2018-10-15 19:37 | CP.PCM.PN ---
Subjective - Date & Time of Evaluation Date of Evaluation: 10/15/18 - Subjective Subjective: patient seen at bedside no nausea no vomiting no diarrhea denies SOB Objective - Vital Signs/Intake and Output Vital Signs (last 24 hours): Temp Pulse Resp BP Pulse Ox 97.9 F 72 20 127/81 99 10/15/18 15:50 10/15/18 16:00 10/15/18 15:50 10/15/18 15:50 10/15/18 15:50 Intake and Output: 10/15/18 10/16/18 18:59 06:59 Intake Total 450 Balance 450 - Medications Medications: Current Medications Aspirin (Aspirin Chewable) 81 mg PO DAILY [facility] Last Admin: 10/15/18 09:34 Dose: 81 mg Chlordiazepoxide (Librium) 25 mg PO Q12H [facility]; Taper Stop: 10/17/18 13:59 Last Admin: 10/15/18 13:33 Dose: 25 mg Clonidine HCl (Catapres) 0.1 mg PO TID [facility] Last Admin: 10/15/18 17:29 Dose: 0.1 mg Cyanocobalamin (Vitamin B12 1000 Mcg Tab) 1,000 mcg PO DAILY [facility] Last Admin: 10/15/18 09:35 Dose: 1,000 mcg Dextrose (Dextrose 50% Inj) 0 ml IV STAT PRN; Protocol PRN Reason: Hypoglycemia Protocol Dextrose (Glutose 15) 0 gm PO ONCE PRN; Protocol PRN Reason: Hypoglycemia Protocol Digoxin (Digoxin) 0.125 mg PO DAILY@1800 [facility] Last Admin: 10/15/18 17:30 Dose: 0.125 mg Diltiazem HCl (Cardizem) 30 mg PO Q8H [facility] Last Admin: 10/15/18 16:29 Dose: 30 mg Famotidine (Pepcid) 20 mg PO BID [facility] Last Admin: 10/15/18 17:30 Dose: 20 mg Folic Acid (Folic Acid) 1 mg PO DAILY [facility] Last Admin: 10/15/18 09:35 Dose: 1 mg Gabapentin (Neurontin) 800 mg PO BID [facility] Last Admin: 10/15/18 18:03 Dose: 800 mg Glucagon (Glucagen Diagnostic Kit) 0 mg IM STAT PRN; Protocol PRN Reason: Hypoglycemia Protocol Piperacillin Sod/Tazobactam (Sod 3.375 gm/ Sodium Chloride) 100 mls @ 200 mls/hr IVPB Q8H [facility]; Protocol Last Admin: 10/15/18 13:33 Dose: 200 mls/hr Vancomycin HCl 1 gm/ Sodium (Chloride) 250 mls @ 166.7 mls/hr IVPB Q24H [facility]; Protocol Stop: 10/16/18 00:00 Last Admin: 10/14/18 21:32 Dose: 166.7 mls/hr Dextrose (Dextrose 5% In Water 1000 Ml) 1,000 mls @ 0 mls/hr IV .Q0M PRN; Protocol PRN Reason: Hypoglycemia Protocol Insulin Glargine (Lantus) 50 unit SC HS [facility] Last Admin: 10/14/18 21:33 Dose: 50 units Insulin Human Regular (Novolin R) 0 unit SC ACHS [facility]; Protocol Last Admin: 10/15/18 17:02 Dose: Not Given Lisinopril (Zestril) 20 mg PO DAILY [facility] Last Admin: 10/15/18 09:34 Dose: 20 mg Lorazepam (Ativan) 2 mg IVP Q4H PRN PRN Reason: Agitation Last Admin: 10/15/18 09:42 Dose: 2 mg Metformin HCl (Glucophage) 1,000 mg PO BID [facility] Last Admin: 10/15/18 17:29 Dose: 1,000 mg Methadone HCl (Methadone) 20 mg PO Q24H [facility]; Taper Stop: 10/19/18 08:59 Last Admin: 10/15/18 09:34 Dose: 20 mg Morphine Sulfate (Morphine) 4 mg IV Q6 PRN PRN Reason: pain Multivitamins (Hexavitamin) 1 tab PO DAILY [facility] Last Admin: 10/15/18 09:34 Dose: 1 tab Rivaroxaban (Xarelto) 20 mg PO DAILY [facility] Last Admin: 10/15/18 09:35 Dose: 20 mg Rosuvastatin Calcium (Crestor) 20 mg PO HS [facility] Last Admin: 10/14/18 21:33 Dose: 20 mg Temazepam (Restoril) 30 mg PO HS [facility] Last Admin: 10/14/18 21:33 Dose: 30 mg Thiamine HCl (Vitamin B1 Tab) 50 mg PO DAILY [facility] Last Admin: 10/15/18 09:35 Dose: 50 mg - Labs Labs: 10/15/18 07:25 10/15/18 07:37 PT 13.8 SECONDS (9.7-12.2) H 10/13/18 06:18 INR 1.3 10/13/18 06:18 APTT 28 SECONDS (21-34) 10/13/18 06:18 - Constitutional Appears: Well - Head Exam Head Exam: ATRAUMATIC, NORMAL INSPECTION, NORMOCEPHALIC - Eye Exam Eye Exam: EOMI, Normal appearance, PERRL Pupil Exam: NORMAL ACCOMODATION, PERRL - ENT Exam ENT Exam: Mucous Membranes Moist, Normal Exam - Neck Exam Neck Exam: Full ROM, Normal Inspection. absent: Lymphadenopathy - Respiratory Exam Respiratory Exam: Decreased Breath Sounds - Cardiovascular Exam Cardiovascular Exam: REGULAR RHYTHM, +S1, +S2 - GI/Abdominal Exam GI & Abdominal Exam: Soft, Diminished Bowel Sounds - Rectal Exam Rectal Exam: Deferred Assessment and Plan - Assessment and Plan (Free Text) Plan: medications reviewed aspirin chewable tablet ativan cardizem catapress crestor dextrose 5% in water 1000ml dextrose 50 inj digoxin folic acid glucagen diagnostic kit glucophage glutose 15 hexavitamin Lantus librium megnesium sulfate 1gm/100 ml D5W methadone morphine neuontin novolin R pepcid restoril vancomycin inj vitamin b1 tab vitamin b12 1000mcg tab xarelto zestril zosyn sodium chloride 0.9% mini bag labs reviewed and vitals reviewed
--- NOTE | 2018-10-15 19:58 | CON ---
DATE: 10/15/2018 REQUESTING PHYSICIAN: Dr. Forrest. HISTORY OF PRESENT ILLNESS: This is a pleasant 68-year-old white male with a history of syncope, unstable legs while standing. The patient is evaluated from podiatric standpoint. Good pulse is noted in both extremities, both dorsalis pedis and tibialis posterior. The patient has multiple eschars on the lesser digit and a heel lesion on both. All of these lesions were debrided at bedside and dressed with sterile 4 x 4's and Mindy. Due to the fact that he has a good circulation and appropriate antibiotics, all of these lesions will be healing up in an appropriate time. Orders were for peroxide irrigation and dressings to be applied and we will follow up on an outpatient basis. Black Farias DPM
[2018-10-15] MEDS: (Lantus) Insulin Glargine, Recombinant SC SCH (21:37)
--- NOTE | 2018-10-15 21:42 | CARD ---
APPROVED REPORT Date of service: 10/13/2018 EKG Measurement Heart [id number] <Conclusion> Atrial fibrillation with rapid ventricular response Abnormal ECG
--- NOTE | 2018-10-15 23:25 | CARD ---
APPROVED REPORT Date of service: 10/15/2018 EXAM: Two-dimensional and M-mode echocardiogram with Doppler and color Doppler. Other Information Quality : GoodRhythm : INDICATION Congestive Heart Failure Acute ETOH, intoxication, heroin abuse RISK FACTORS Hypertension Hyperlipidemia Diabetes 2D DIMENSIONS IVSd1.0 (0.7-1.1cm)LVDd5.0 (3.9-5.9cm) PWd1.2 (0.7-1.1cm)LA Scqzna02 (18-58mL) LVDs3.4 (2.5-4.0cm)FS (%) 32.6 % LVEF (%)60.8 (>50%)LVEF (Griffith's)70.31 % M-Mode DIMENSIONS Left Atrium (MM)4.79 (2.5-4.0cm)IVSd1.08 (0.7-1.1cm) Aortic Root4.20 (2.2-3.7cm)LVDd6.40 (4.0-5.6cm) Aortic Cusp Exc.2.48 (1.5-2.0cm)PWd0.95 (0.7-1.1cm) FS (%) 40 %LVDs3.87 (2.0-3.8cm) LVEF (%)69 (>50%) Mitral Valve MV E Xqdofibo60.9cm/sMV A Uqxatriv44.3cm/sE/A ratio2.9 TDI Lateral E' Peak V9.84cm/sMedial E' Peak V6.42cm/sE/Lateral E'8.9 E/Medial E'13.7 Tricuspid Valve TR Peak [id number]/sTR Peak [id number] LEFT VENTRICLE The left ventricle is normal size. There is borderline concentric left ventricular hypertrophy. Left ventricle systolic function is normal. The Ejection Fraction is 65-70%. There is normal LV segmental wall motion. The left ventricular diastolic function is normal. There is no ventricular septal defect visualized. RIGHT VENTRICLE The right ventricle is normal size. The right ventricular systolic function is normal. ATRIA The left atrium is borderline dilated. The right atrium size is normal. AORTIC VALVE The aortic valve is mildly sclerotic. The aortic valve is tri-cuspid. No aortic regurgitation is present. There is no aortic valvular stenosis. MITRAL VALVE The mitral valve is normal in structure. There is no evidence of mitral valve prolapse. Mitral regurgitation is trace. TRICUSPID VALVE The tricuspid valve is normal in structure. There is trace tricuspid regurgitation. Right ventricular systolic pressure is estimated at less than 30 mmHg. There is no pulmonary hypertension. PULMONIC VALVE The pulmonic valve is not well visualized. There is no pulmonic valvular regurgitation. GREAT VESSELS The aortic root is mildly enlarged.4.2 cm The ascending aorta is not well seen. The IVC is dilated. PERICARDIAL EFFUSION There is no pericardial effusion. <Conclusion> There is borderline concentric left ventricular hypertrophy. Left ventricle systolic function is normal. The Ejection Fraction is 65-70%. The left ventricular diastolic function is normal. Mitral regurgitation is trace. The aortic root is mildly enlarged.4.2 cm The IVC is dilated.
[2018-10-16] MEDS: Piperacillin/Tazobact 3.375 GM in Sodium Chloride 100 ML IVPB SCH ×3 (05:28→21:26)
[2018-10-16] MEDS: (Novolin R) Insulin Human Regular 100 units/ml vial SC SCH ×4 (08:05→21:31)
[2018-10-16 09:08] LABS: BASO # 0.1 K/uL (0.0-0.2); BASO % 1.6 % (0.0-2.0); EOS # 0.3 K/uL (0.0-0.7); EOS % 4.8 % (0.0-4.0); LYMPH # 1.2 K/uL (1.0-4.3); LYMPH % 22.1 % (20.0-40.0); MEAN CELL VOLUME 88.7 fL (80.0-94.0); MEAN CORPUSCULAR HEMOGLOBIN 28.4 pg (27.0-31.0); MEAN CORPUSCULAR HGB CONC 32.1 g/dL (33.0-37.0); MONO # 0.4 K/uL (0.0-0.8); MONO % 8.4 % (0.0-10.0); NEUT # 3.3 K/uL (1.8-7.0); NEUT % 63.1 % (50.0-75.0); NRBC % 0.1 % (0.0-2.0); RBC 3.88 Mil/uL (4.40-5.90); RED CELL DISTRIBUTION WIDTH 21.1 % (11.5-14.5); WHITE BLOOD COUNT 5.3 K/uL (4.8-10.8)
[2018-10-16 09:27] LABS: ALB/GLOB RATIO 1.2 (1.0-2.1); ALBUMIN 3.8 g/dL (3.5-5.0); ALT/SGPT < 6 U/L (21-72); AST/SGOT 24 U/L (17-59); BLOOD UREA NITROGEN 20 mg/dL (9-20); GFR NON-AFRICAN AMERICAN > 60
[2018-10-16] MEDS: Multiple Vitamins Tab PO SCH (11:28)
[2018-10-16] MEDS: Magnesium Oxide 400 mg Tab UD PO SCH ×2 (11:29→17:01)
--- NOTE | 2018-10-16 14:20 | CP.PCM.PN ---
Subjective - Date & Time of Evaluation Date of Evaluation: 10/16/18 Time of Evaluation: 13:30 - Subjective Subjective: patient seen and examined at bedside no nausea, no vomiting, no dizziness, no fever, no diarrhea denies SOB Objective - Vital Signs/Intake and Output Vital Signs (last 24 hours): Temp Pulse Resp BP Pulse Ox 97.4 F L 65 20 105/64 96 10/16/18 09:05 10/16/18 09:05 10/16/18 09:05 10/16/18 09:05 10/16/18 09:05 Intake and Output: 10/16/18 10/16/18 06:59 18:59 Intake Total 350 Output Total 400 Balance -50 - Medications Medications: Current Medications Aspirin (Aspirin Chewable) 81 mg PO DAILY [facility] Last Admin: 10/16/18 11:29 Dose: 81 mg Chlordiazepoxide (Librium) 25 mg PO Q24H [facility]; Taper Stop: 10/17/18 13:59 Last Admin: 10/16/18 02:02 Dose: 25 mg Chlordiazepoxide (Librium) 25 mg PO Q6H PRN PRN Reason: Alcohol withdrawal sxs Clonidine HCl (Catapres) 0.1 mg PO TID [facility] Last Admin: 10/16/18 11:30 Dose: 0.1 mg Cyanocobalamin (Vitamin B12 1000 Mcg Tab) 1,000 mcg PO DAILY [facility] Last Admin: 10/16/18 11:27 Dose: 1,000 mcg Dextrose (Dextrose 50% Inj) 0 ml IV STAT PRN; Protocol PRN Reason: Hypoglycemia Protocol Dextrose (Glutose 15) 0 gm PO ONCE PRN; Protocol PRN Reason: Hypoglycemia Protocol Digoxin (Digoxin) 0.125 mg PO DAILY@1800 [facility] Last Admin: 10/15/18 17:30 Dose: 0.125 mg Diltiazem HCl (Cardizem) 30 mg PO Q8H [facility] Last Admin: 10/16/18 08:30 Dose: 30 mg Famotidine (Pepcid) 20 mg PO BID [facility] Last Admin: 10/16/18 11:28 Dose: 20 mg Folic Acid (Folic Acid) 1 mg PO DAILY [facility] Last Admin: 10/16/18 11:29 Dose: 1 mg Gabapentin (Neurontin) 800 mg PO BID [facility] Last Admin: 10/16/18 11:26 Dose: 800 mg Glucagon (Glucagen Diagnostic Kit) 0 mg IM STAT PRN; Protocol PRN Reason: Hypoglycemia Protocol Piperacillin Sod/Tazobactam (Sod 3.375 gm/ Sodium Chloride) 100 mls @ 200 mls/hr IVPB Q8H [facility]; Protocol Last Admin: 10/16/18 05:28 Dose: 200 mls/hr Dextrose (Dextrose 5% In Water 1000 Ml) 1,000 mls @ 0 mls/hr IV .Q0M PRN; Protocol PRN Reason: Hypoglycemia Protocol Insulin Glargine (Lantus) 50 unit SC [facility] Last Admin: 10/15/18 21:37 Dose: 50 units Insulin Human Regular (Novolin R) 0 unit SC [facility]; Protocol Last Admin: 10/15/18 21:54 Dose: Not Given Lisinopril (Zestril) 20 mg PO DAILY [facility] Last Admin: 10/16/18 11:27 Dose: 20 mg Magnesium Oxide (Mag-Ox) 400 mg PO BID [facility] Stop: 10/19/18 10:01 Last Admin: 10/16/18 11:29 Dose: 400 mg Metformin HCl (Glucophage) 1,000 mg PO BID [facility] Last Admin: 10/16/18 11:38 Dose: 1,000 mg Methadone HCl (Methadone) 15 mg PO Q24H [facility]; Taper Stop: 10/19/18 08:59 Last Admin: 10/16/18 11:26 Dose: 15 mg Multivitamins (Hexavitamin) 1 tab PO DAILY [facility] Last Admin: 10/16/18 11:28 Dose: 1 tab Rivaroxaban (Xarelto) 20 mg PO DAILY [facility] Last Admin: 10/16/18 11:28 Dose: 20 mg Rosuvastatin Calcium (Crestor) 20 mg PO HS [facility] Last Admin: 10/15/18 21:37 Dose: 20 mg Temazepam (Restoril) 30 mg PO HS [facility] Last Admin: 10/15/18 21:37 Dose: 30 mg Thiamine HCl (Vitamin B1 Tab) 50 mg PO DAILY [facility] Last Admin: 10/16/18 11:25 Dose: 50 mg - Labs Labs: 10/16/18 09:05 10/16/18 09:05 PT 13.8 SECONDS (9.7-12.2) H 10/13/18 06:18 INR 1.3 10/13/18 06:18 APTT 28 SECONDS (21-34) 10/13/18 06:18 - Constitutional Appears: Well - Head Exam Head Exam: ATRAUMATIC, NORMAL INSPECTION, NORMOCEPHALIC - Eye Exam Eye Exam: EOMI, Normal appearance, PERRL Pupil Exam: NORMAL ACCOMODATION, PERRL - ENT Exam ENT Exam: Mucous Membranes Moist, Normal Exam - Neck Exam Neck Exam: Full ROM, Normal Inspection. absent: Lymphadenopathy - Respiratory Exam Respiratory Exam: Decreased Breath Sounds - Cardiovascular Exam Cardiovascular Exam: REGULAR RHYTHM, +S1, +S2 - GI/Abdominal Exam GI & Abdominal Exam: Diminished Bowel Sounds - Rectal Exam Rectal Exam: Deferred Assessment and Plan - Assessment and Plan (Free Text) Plan: patient evaluated today medications reviewed aspirin chewable tablet cardizem catapress crestor dextrose 5% in water 1000 ml dextrose 50% inj digoxin folic acid glucagen diagnostic kit glucophage glutose 15 hexavitamin lantus librium mag ox methadone neurontin novolin r pepcid restoril xarelto zestril zosyn sodiym chloride 0.9% mini bag Agree for the discharge tomorrow after the PICC line is done all the patient's told that being patient is had a heroin abuser patient told not to sign out Follow-up with the multiple consultations Follow-up with Dr. 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
--- NOTE | 2018-10-16 15:26 | CP.PCM.PN ---
Subjective - Date & Time of Evaluation Date of Evaluation: 10/16/18 Time of Evaluation: 11:00 - Subjective Subjective: Podiatry Progress Note- Dr. Daly 68 M seen and evaluated at bedside for bilaterally foot ulcerations. Patient is seen resting comfortably in bed, in NAD and AA0x3. Patient denies of pain to the lower extremity while in bed. During dressing change, patient reports pain with cleansing of wound. Patient denies nausea, fever, shortness of breath, chest pains. Reports wearing the multipodus boots at all times when in bed. Objective - Vital Signs/Intake and Output Vital Signs (last 24 hours): Temp Pulse Resp BP Pulse Ox 97.4 F L 65 20 105/64 96 10/16/18 09:05 10/16/18 09:05 10/16/18 09:05 10/16/18 09:05 10/16/18 09:05 Intake and Output: 10/16/18 10/16/18 06:59 18:59 Intake Total 350 Output Total 400 Balance -50 - Medications Medications: Current Medications Aspirin (Aspirin Chewable) 81 mg PO DAILY [facility] Last Admin: 10/16/18 11:29 Dose: 81 mg Chlordiazepoxide (Librium) 25 mg PO Q24H [facility]; Taper Stop: 10/17/18 13:59 Last Admin: 10/16/18 14:17 Dose: 25 mg Chlordiazepoxide (Librium) 25 mg PO Q6H PRN PRN Reason: Alcohol withdrawal sxs Clonidine HCl (Catapres) 0.1 mg PO TID [facility] Last Admin: 10/16/18 11:30 Dose: 0.1 mg Cyanocobalamin (Vitamin B12 1000 Mcg Tab) 1,000 mcg PO DAILY [facility] Last Admin: 10/16/18 11:27 Dose: 1,000 mcg Dextrose (Dextrose 50% Inj) 0 ml IV STAT PRN; Protocol PRN Reason: Hypoglycemia Protocol Dextrose (Glutose 15) 0 gm PO ONCE PRN; Protocol PRN Reason: Hypoglycemia Protocol Digoxin (Digoxin) 0.125 mg PO DAILY@1800 [facility] Last Admin: 10/15/18 17:30 Dose: 0.125 mg Diltiazem HCl (Cardizem) 30 mg PO Q8H [facility] Last Admin: 10/16/18 08:30 Dose: 30 mg Famotidine (Pepcid) 20 mg PO BID [facility] Last Admin: 10/16/18 11:28 Dose: 20 mg Folic Acid (Folic Acid) 1 mg PO DAILY [facility] Last Admin: 10/16/18 11:29 Dose: 1 mg Gabapentin (Neurontin) 800 mg PO BID [facility] [place] Last Admin: 10/16/18 11:26 Dose: 800 mg Glucagon (Glucagen Diagnostic Kit) 0 mg IM STAT PRN; Protocol PRN Reason: Hypoglycemia Protocol Piperacillin Sod/Tazobactam (Sod 3.375 gm/ Sodium Chloride) 100 mls @ 200 mls/hr IVPB Q8H [facility]; Protocol Last Admin: 10/16/18 14:17 Dose: 200 mls/hr Dextrose (Dextrose 5% In Water 1000 Ml) 1,000 mls @ 0 mls/hr IV .Q0M PRN; Protocol PRN Reason: Hypoglycemia Protocol Insulin Glargine (Lantus) 50 unit SC [facility] Last Admin: 10/15/18 21:37 Dose: 50 units Insulin Human Regular (Novolin R) 0 unit SC [facility]; Protocol Last Admin: 10/16/18 11:45 Dose: Not Given Lisinopril (Zestril) 20 mg PO DAILY [facility] Last Admin: 10/16/18 11:27 Dose: 20 mg Magnesium Oxide (Mag-Ox) 400 mg PO BID [facility] Stop: 10/19/18 10:01 Last Admin: 10/16/18 11:29 Dose: 400 mg Metformin HCl (Glucophage) 1,000 mg PO BID [facility] Last Admin: 10/16/18 11:38 Dose: 1,000 mg Methadone HCl (Methadone) 15 mg PO Q24H [facility]; Taper Stop: 10/19/18 08:59 Last Admin: 10/16/18 11:26 Dose: 15 mg Multivitamins (Hexavitamin) 1 tab PO DAILY [facility] Last Admin: 10/16/18 11:28 Dose: 1 tab Rivaroxaban (Xarelto) 20 mg PO DAILY [facility] Last Admin: 10/16/18 11:28 Dose: 20 mg Rosuvastatin Calcium (Crestor) 20 mg PO [facility] Last Admin: 10/15/18 21:37 Dose: 20 mg Temazepam (Restoril) 30 mg PO [facility] Last Admin: 10/15/18 21:37 Dose: 30 mg Thiamine HCl (Vitamin B1 Tab) 50 mg PO DAILY [facility] Last Admin: 10/16/18 11:25 Dose: 50 mg - Labs Labs: 10/16/18 09:05 10/16/18 09:05 PT 13.8 SECONDS (9.7-12.2) H 10/13/18 06:18 INR 1.3 10/13/18 06:18 APTT 28 SECONDS (21-34) 10/13/18 06:18 - Constitutional Appears: Well, Non-toxic, No Acute Distress - Extremities Exam Extremities Exam: absent: Calf Tenderness Additional comments: VASC: DP and PT pulses palable, CFT slightly delayed, temperature gradient WNL, no edema noted ORTHO: pain with palpation to the right heel ulceration measuring approximately 1 cm in diameter x .1 cm secondary to DM and pressure, wound base is mixture of fibrotic and granular tissue and multiple superfical ulcerations on dorsum of digits left and right foot. There is a lesion, developing pressure ulcer/preulcerative lesion, on left heel measuring approximately 0.5 in diameter and darken discoloration. No erythema, no odor, no purulence, drainage or fluctance. No clinical signs of infection - Neurological Exam Neurological Exam: Alert, Awake, Oriented x3 - Psychiatric Exam Psychiatric exam: Normal Affect, Normal Mood Assessment and Plan - Assessment and Plan (Free Text) Assessment: 68 M seen and evaluated at bedside for bilaterally foot ulcerations- stable Plan: Patient seen and examined Discussed plan in detail with attending Dr. Daly All questions/concerns addressed Labs, vitals reviewed- afebrile Cleansed ulcerations wit hydrogen peroxide, dressed with hydrogen peroxide wet to dry, dsd, and cling bilaterally Patient to continue to wear multipodus boots in bed at all times. Podiatry will continue to follow while in house Nursing communication: dressing change twice a day. To clean lesions with hydrogen peroxide q 12. Thank you Upon discharge, patient is to follow up with Dr. Daly in his off
[2018-10-16] MEDS: Digoxin 125 mcg (0.125 mg) Tab PO SCH (17:01)
--- NOTE | 2018-10-16 19:28 | CP.PCM.PN ---
<Sis Green - Last Filed: 10/16/18 19:24> Subjective - Date & Time of Evaluation Date of Evaluation: 10/16/18 Time of Evaluation: 19:25 - Subjective Subjective: Sis Green, PGY-1, Cardiology Progress Note for Dr. Foster Patient seen and evaluated at bedside. Patient had no acute overnight events. Patient denies any acute complaints at this time. Objective - Vital Signs/Intake and Output Vital Signs (last 24 hours): Temp Pulse Resp BP Pulse Ox 97.5 F L 66 20 136/92 H 97 10/16/18 15:00 10/16/18 16:00 10/16/18 15:00 10/16/18 15:00 10/16/18 15:00 - Medications Medications: Current Medications Aspirin (Aspirin Chewable) 81 mg PO DAILY [facility] Last Admin: 10/16/18 11:29 Dose: 81 mg Chlordiazepoxide (Librium) 25 mg PO Q24H [facility]; Taper Stop: 10/17/18 13:59 Last Admin: 10/16/18 14:17 Dose: 25 mg Chlordiazepoxide (Librium) 25 mg PO Q6H PRN PRN Reason: Alcohol withdrawal sxs Clonidine HCl (Catapres) 0.1 mg PO TID [facility] Last Admin: 10/16/18 17:01 Dose: 0.1 mg Cyanocobalamin (Vitamin B12 1000 Mcg Tab) 1,000 mcg PO DAILY [facility] Last Admin: 10/16/18 11:27 Dose: 1,000 mcg Dextrose (Dextrose 50% Inj) 0 ml IV STAT PRN; Protocol PRN Reason: Hypoglycemia Protocol Dextrose (Glutose 15) 0 gm PO ONCE PRN; Protocol PRN Reason: Hypoglycemia Protocol Digoxin (Digoxin) 0.125 mg PO DAILY@1800 [facility] Last Admin: 10/16/18 17:01 Dose: 0.125 mg Diltiazem HCl (Cardizem) 30 mg PO Q8H [facility] Last Admin: 10/16/18 16:55 Dose: 30 mg Famotidine (Pepcid) 20 mg PO BID [facility] Last Admin: 10/16/18 17:01 Dose: 20 mg Folic Acid (Folic Acid) 1 mg PO DAILY [facility] Last Admin: 10/16/18 11:29 Dose: 1 mg Gabapentin (Neurontin) 800 mg PO BID [facility] Last Admin: 10/16/18 17:02 Dose: 800 mg Glucagon (Glucagen Diagnostic Kit) 0 mg IM STAT PRN; Protocol PRN Reason: Hypoglycemia Protocol Piperacillin Sod/Tazobactam (Sod 3.375 gm/ Sodium Chloride) 100 mls @ 200 mls/hr IVPB Q8H [facility]; Protocol Last Admin: 10/16/18 14:17 Dose: 200 mls/hr Dextrose (Dextrose 5% In Water 1000 Ml) 1,000 mls @ 0 mls/hr IV .Q0M PRN; Protocol PRN Reason: Hypoglycemia Protocol Insulin Glargine (Lantus) 50 unit SC HS [facility] Last Admin: 10/15/18 21:37 Dose: 50 units Insulin Human Regular (Novolin R) 0 unit SC [facility]; Protocol Last Admin: 10/16/18 16:11 Dose: Not Given Lisinopril (Zestril) 20 mg PO DAILY [facility] Last Admin: 10/16/18 11:27 Dose: 20 mg Magnesium Oxide (Mag-Ox) 400 mg PO BID [facility] Stop: 10/19/18 10:01 Last Admin: 10/16/18 17:01 Dose: 400 mg Metformin HCl (Glucophage) 1,000 mg PO BID [facility] Last Admin: 10/16/18 17:01 Dose: 1,000 mg Methadone HCl (Methadone) 15 mg PO Q24H [facility]; Taper Stop: 10/19/18 08:59 Last Admin: 10/16/18 11:26 Dose: 15 mg Multivitamins (Hexavitamin) 1 tab PO DAILY [facility] Last Admin: 10/16/18 11:28 Dose: 1 tab Rivaroxaban (Xarelto) 20 mg PO DAILY [facility] Last Admin: 10/16/18 11:28 Dose: 20 mg Rosuvastatin Calcium (Crestor) 20 mg PO HS [facility] Last Admin: 10/15/18 21:37 Dose: 20 mg Temazepam (Restoril) 30 mg PO HS [facility] Last Admin: 10/15/18 21:37 Dose: 30 mg Thiamine HCl (Vitamin B1 Tab) 50 mg PO DAILY [facility] Last Admin: 10/16/18 11:25 Dose: 50 mg - Labs Labs: 10/16/18 09:05 10/16/18 09:05 PT 13.8 SECONDS (9.7-12.2) H 10/13/18 06:18 INR 1.3 10/13/18 06:18 APTT 28 SECONDS (21-34) 10/13/18 06:18 - Constitutional Appears: Well, Non-toxic, No Acute Distress - Head Exam Head Exam: ATRAUMATIC, NORMAL INSPECTION, NORMOCEPHALIC - Eye Exam Eye Exam: EOMI, PERRL - ENT Exam ENT Exam: Mucous Membranes Moist - Respiratory Exam Respiratory Exam: Clear to Auscultation Bilateral, NORMAL BREATHING PATTERN - Cardiovascular Exam Cardiovascular Exam: Tachycardia, Irregular Rhythm, +S1, +S2 - GI/Abdominal Exam GI & Abdominal Exam: Normal Bowel Sounds, Soft. absent: Tenderness - Extremities Exam Extremities exam: Positive for: full ROM, normal inspection - Neurological Exam Neurological exam: Alert, CN II-XII Intact, Oriented x3 - Skin Skin Exam: Dry, Intact Assessment and Plan (1) Dizziness Assessment & Plan: Head CT: no acute ICH but 1 discrete right basal ganglia Orthostatic vitals: BP was 113/53 while lying, 125/61 while sitting, and 119/70 while standing thus unremarkable Tropx4: negative BNP: 2150 EKG: atrial fibrillation right RVR with HR: 113 Continue with aspirin, clonidine, digoxin, cardizem, lisinopril Status: Acute (2) Hyperlipemia Assessment & Plan: Continue with rosuvastatin Status: Acute (3) Atrial fibrillation with rapid ventricular response Assessment & Plan: EKG: atrial fibrillation right RVR with HR: 113 Continue with xarelto 20 mg daily and cardizem 30 mg Q8 Status: Acute (4) Diastolic CHF Assessment & Plan: Echocardiogram shows mild left ventricular hypertrophy Continue with aspirin, digoxin, cardizem, lisinopril Status: Acute (5) Hypertension Assessment & Plan: Continue with clonidine, digoxin, cardizem, lisinopril Status: Acute (6) Diabetes mellitus Assessment & Plan: HgbA1c: 6.1 Continue with metformin Status: Acute <Yayo Foster - Last Filed: 10/29/18 19:20> Objective - Vital Signs/Intake and Output Vital Signs (last 24 hours): Temp Pulse Resp BP Pulse Ox 97.4 F L 76 20 125/74 97 10/23/18 15:00 10/23/18 15:00 10/23/18 15:00 10/23/18 17:37 10/23/18 15:00 - Labs Labs: 10/21/18 17:03 10/21/18 17:03 PT 13.8 SECONDS (9.7-12.2) H 10/13/18 06:18 INR 1.3 10/13/18 06:18 APTT 28 SECONDS (21-34) 10/13/18 06:18 Assessment and Plan (1) Atrial fibrillation with rapid ventricular response Status: Acute (2) Dizziness Status: Acute (3) Hyperglycemia Status: Acute (4) Hyperlipemia Status: Acute (5) Syncope Status: Acute (6) Anemia Status: Acute (7) Atrial fibrillation Status: Acute Attending/Attestation - Attestation I have personally seen and examined this patient.: Yes I have fully participated in the care of the patient.: Yes I have reviewed all pertinent clinical information, including history, physical exam and plan: Yes
[2018-10-16] MEDS: (Lantus) Insulin Glargine, Recombinant SC SCH (21:27)
[2018-10-17] MEDS: Piperacillin/Tazobact 3.375 GM in Sodium Chloride 100 ML IVPB SCH ×3 (05:33→21:31)
[2018-10-17] MEDS: (Novolin R) Insulin Human Regular 100 units/ml vial SC SCH ×4 (07:29→22:21)
--- NOTE | 2018-10-17 08:44 | CP.PCM.PN ---
<Sis Green - Last Filed: 10/17/18 08:46> Subjective - Date & Time of Evaluation Date of Evaluation: 10/17/18 Time of Evaluation: 08:42 - Subjective Subjective: Sis Green, PGY-1, Cardiology Progress Note for Dr. Foster Patient seen and evaluated at bedside. Patient had no acute overnight events. Patient reports to feel stronger today. He reports that standing up makes him dizzy. Objective - Vital Signs/Intake and Output Vital Signs (last 24 hours): Temp Pulse Resp BP Pulse Ox 98.0 F 75 20 124/83 95 10/17/18 08:27 10/17/18 08:27 10/17/18 08:27 10/17/18 08:27 10/17/18 08:27 Intake and Output: 10/17/18 10/17/18 06:59 18:59 Intake Total 500 Balance 500 - Medications Medications: Current Medications Aspirin (Aspirin Chewable) 81 mg PO DAILY [facility] Last Admin: 10/16/18 11:29 Dose: 81 mg Chlordiazepoxide (Librium) 25 mg PO Q24H [facility]; Taper Stop: 10/17/18 13:59 Last Admin: 10/16/18 14:17 Dose: 25 mg Chlordiazepoxide (Librium) 25 mg PO Q6H PRN PRN Reason: Alcohol withdrawal sxs Last Admin: 10/17/18 07:34 Dose: 25 mg Clonidine HCl (Catapres) 0.1 mg PO TID [facility] Last Admin: 10/16/18 17:01 Dose: 0.1 mg Cyanocobalamin (Vitamin B12 1000 Mcg Tab) 1,000 mcg PO DAILY [facility] Last Admin: 10/16/18 11:27 Dose: 1,000 mcg Dextrose (Dextrose 50% Inj) 0 ml IV STAT PRN; Protocol PRN Reason: Hypoglycemia Protocol Dextrose (Glutose 15) 0 gm PO ONCE PRN; Protocol PRN Reason: Hypoglycemia Protocol Digoxin (Digoxin) 0.125 mg PO DAILY@1800 [facility] Last Admin: 10/16/18 17:01 Dose: 0.125 mg Diltiazem HCl (Cardizem) 30 mg PO Q8H [facility] Last Admin: 10/17/18 07:49 Dose: 30 mg Famotidine (Pepcid) 20 mg PO BID [facility] Last Admin: 10/16/18 17:01 Dose: 20 mg Folic Acid (Folic Acid) 1 mg PO DAILY [facility] Last Admin: 10/16/18 11:29 Dose: 1 mg Gabapentin (Neurontin) 800 mg PO BID [facility] Last Admin: 10/16/18 17:02 Dose: 800 mg Glucagon (Glucagen Diagnostic Kit) 0 mg IM STAT PRN; Protocol PRN Reason: Hypoglycemia Protocol Piperacillin Sod/Tazobactam (Sod 3.375 gm/ Sodium Chloride) 100 mls @ 200 mls/hr IVPB Q8H [facility]; Protocol Last Admin: 10/17/18 05:33 Dose: 200 mls/hr Dextrose (Dextrose 5% In Water 1000 Ml) 1,000 mls @ 0 mls/hr IV .Q0M PRN; Protocol PRN Reason: Hypoglycemia Protocol Insulin Glargine (Lantus) 50 unit SC [facility] Last Admin: 10/16/18 21:27 Dose: 50 units Insulin Human Regular (Novolin R) 0 unit SC [facility]; Protocol Last Admin: 10/17/18 07:29 Dose: Not Given Lisinopril (Zestril) 20 mg PO DAILY [facility] Last Admin: 10/16/18 11:27 Dose: 20 mg Magnesium Oxide (Mag-Ox) 400 mg PO BID [facility] Stop: 10/19/18 10:01 Last Admin: 10/16/18 17:01 Dose: 400 mg Metformin HCl (Glucophage) 1,000 mg PO BID [facility] Last Admin: 10/16/18 17:01 Dose: 1,000 mg Methadone HCl (Methadone) 15 mg PO Q24H [facility]; Taper Stop: 10/19/18 08:59 Last Admin: 10/16/18 11:26 Dose: 15 mg Multivitamins (Hexavitamin) 1 tab PO DAILY [facility] Last Admin: 10/16/18 11:28 Dose: 1 tab Rivaroxaban (Xarelto) 20 mg PO DAILY [facility] Last Admin: 10/16/18 11:28 Dose: 20 mg Rosuvastatin Calcium (Crestor) 20 mg PO [facility] Last Admin: 10/16/18 21:28 Dose: 20 mg Temazepam (Restoril) 30 mg PO HS [facility] Last Admin: 10/16/18 21:28 Dose: 30 mg Thiamine HCl (Vitamin B1 Tab) 50 mg PO DAILY [facility] Last Admin: 10/16/18 11:25 Dose: 50 mg - Labs Labs: 03/28/19 09:05 10/16/18 09:05 PT 13.8 SECONDS (9.7-12.2) H 10/13/18 06:18 INR 1.3 10/13/18 06:18 APTT 28 SECONDS (21-34) 10/13/18 06:18 - Constitutional Appears: Well, Non-toxic, No Acute Distress - Head Exam Head Exam: ATRAUMATIC, NORMAL INSPECTION, NORMOCEPHALIC - Eye Exam Eye Exam: EOMI, PERRL - ENT Exam ENT Exam: Mucous Membranes Moist - Respiratory Exam Respiratory Exam: Clear to Auscultation Bilateral, NORMAL BREATHING PATTERN - Cardiovascular Exam Cardiovascular Exam: Tachycardia, Irregular Rhythm, +S1, +S2 - GI/Abdominal Exam GI & Abdominal Exam: Normal Bowel Sounds, Soft. absent: Tenderness - Extremities Exam Extremities exam: Positive for: full ROM, normal inspection - Neurological Exam Neurological exam: Alert, CN II-XII Intact, Oriented x3 - Skin Skin Exam: Dry, Intact Assessment and Plan (1) Dizziness Assessment & Plan: Head CT: no acute ICH but 1 discrete right basal ganglia Orthostatic vitals: BP was 113/53 while lying, 125/61 while sitting, and 119/70 while standing thus unremarkable Tropx4: negative BNP: 2150 EKG: atrial fibrillation right RVR with HR: 113 Will consider nuclear stress test to evaluate for ischemia Continue with aspirin, clonidine, digoxin, cardizem, lisinopril Status: Acute (2) Hyperlipemia Assessment & Plan: Continue with rosuvastatin Status: Acute (3) Atrial fibrillation with rapid ventricular response Assessment & Plan: EKG: atrial fibrillation right RVR with HR: 113 Continue with xarelto 20 mg daily and cardizem 30 mg Q8 Status: Acute (4) Diastolic CHF Assessment & Plan: Echocardiogram shows mild left ventricular hypertrophy BNP: 2150 Tropx4: negative Continue with aspirin, digoxin, cardizem, lisinopril Status: Acute (5) Hypertension Assessment & Plan: Continue with clonidine, digoxin, cardizem, lisinopril Status: Acute (6) Diabetes mellitus Assessment & Plan: HgbA1c: 6.1 Continue with metformin Status: Acute <Yayo Foster - Last Filed: 10/29/18 19:21> Objective - Vital Signs/Intake and Output Vital Signs (last 24 hours): Temp Pulse Resp BP Pulse Ox 97.4 F L 76 20 125/74 97 10/23/18 15:00 10/23/18 15:00 10/23/18 15:00 10/23/18 17:37 10/23/18 15:00 - Labs Labs: 10/21/18 17:03 10/21/18 17:03 PT 13.8 SECONDS (9.7-12.2) H 10/13/18 06:18 INR 1.3 10/13/18 06:18 APTT 28 SECONDS (21-34) 10/13/18 06:18 Assessment and Plan (1) Atrial fibrillation with rapid ventricular response Status: Acute (2) Dizziness Status: Acute (3) Hyperglycemia Status: Acute (4) Hyperlipemia Status: Acute (5) Syncope Status: Acute (6) Anemia Status: Acute (7) Atrial fibrillation Status: Acute Attending/Attestation - Attestation I have personally seen and examined this patient.: Yes I have fully participated in the care of the patient.: Yes I have reviewed all pertinent clinical information, including history, physical exam and plan: Yes
[2018-10-17 08:45] LABS: BASO # 0.1 K/uL (0.0-0.2); BASO % 1.3 % (0.0-2.0); EOS # 0.2 K/uL (0.0-0.7); EOS % 2.8 % (0.0-4.0); HEMOGLOBIN 10.8 g/dL (12.0-18.0); LYMPH # 1.3 K/uL (1.0-4.3); LYMPH % 22.1 % (20.0-40.0); MEAN CELL VOLUME 89.7 fL (80.0-94.0); MEAN CORPUSCULAR HEMOGLOBIN 28.7 pg (27.0-31.0); MEAN PLATELET VOLUME 8.3 fL (7.2-11.7); MONO # 0.5 K/uL (0.0-0.8); MONO % 8.2 % (0.0-10.0); NEUT # 3.8 K/uL (1.8-7.0); NEUT % 65.6 % (50.0-75.0); RBC 3.77 Mil/uL (4.40-5.90); RED CELL DISTRIBUTION WIDTH 21.1 % (11.5-14.5); WHITE BLOOD COUNT 5.7 K/uL (4.8-10.8)
[2018-10-17 09:01] LABS: ALB/GLOB RATIO 1.2 (1.0-2.1); ALBUMIN 3.7 g/dL (3.5-5.0); AST/SGOT 23 U/L (17-59); BLOOD UREA NITROGEN 21 mg/dL (9-20); CALCIUM 9.1 mg/dl (8.6-10.4); GFR NON-AFRICAN AMERICAN > 60
[2018-10-17 09:03] LABS: ALT/SGPT < 6 U/L (21-72)
[2018-10-17] MEDS: Multiple Vitamins Tab PO SCH (09:26)
[2018-10-17] MEDS: Magnesium Oxide 400 mg Tab UD PO SCH ×2 (09:26→17:27)
--- NOTE | 2018-10-17 13:25 | PCM.PYCHPN ---
Psychiatric Progress Note - Psychiatric Progress Note Patient seen today, length of contact: 15 min Patient Chief Complaint: "I feel better" Problems Identified/Issues Discussed: The pt is seen, chart reviewed, case is discussed with staff. Support and psychoeducation given, CO used briefly The pt is improving slowly but needs more time due to severity of symptoms and relapse risk. No SEs from medications, risks discussed. After care discussed - wants to go to [facility] and then drug rehab Detox ending tomorrow Psych will sign off Medication Change: Yes (detox changes daily) Medical Record Reviewed: Yes Mental Status Examination - Cognitive Function Orientation: Person, Place, Situation, Time Memory: Impaired Attention: Poor Concentration: Poor Association: WNL Fund of Knowledge: WNL - Mood Mood: Depressed, Anxious - Affect Affect: Constricted - Speech Speech: Appropriate - Formal Thought Process Formal Thought Process: No Impairment - Suicidal Ideation Suicidal Ideation: No - Homicidal Ideation Homicidal Ideation: No Goal/Treatment Plan - Goal/Treatment Plan Need for Continued Stay: Other (medical) Progress Toward Problem(s) and Goals/Treatment Plan: Taper with methadone and librium Gabapentin for augmentation if needed As needed medications All risks, benefits and alternatives of the meds discussed, and the pt agreed and understood. Supportive therapy and psychoeducation CO for abstinence Encourage MAT Refer to rehab or IOP, and self-help groups Teach healthy lifestyle methods, i.e. diet, exercise, meditation Smoking cessation with CO Nicotine patch if needed Psych will sign off Refer to [facility]
--- NOTE | 2018-10-17 15:45 | RAD ---
Date of service: 2018-10-17 15:12:16 PROCEDURE: Bilateral Feet Radiographs. HISTORY: ulcer COMPARISON: 09/24/2018. TECHNIQUE: For views obtained. FINDINGS: BONES: Right Foot: Bone alignment and mineralization are normal. There is an subacute healing mildly displaced fracture in the lateral malleolus with presumable surrounding callus. There is no bone destruction. There is a prominent plantar calcaneal spur. Left Foot: Bone alignment and mineralization are normal. There is no acute displaced fracture or bone destruction. There is a prominent plantar calcaneal spur. JOINTS: Right Foot: Normal. No osteoarthritis. Left Foot: Normal. No osteoarthritis. SOFT TISSUES: Right Foot: Normal. Left Foot: Normal. OTHER FINDINGS: There are atherosclerotic vascular calcifications. IMPRESSION: Subacute healing mildly displaced fracture in the right lateral malleolus with presumable surrounding callus. Dedicated ankle radiographs are recommended for complete evaluation the fracture. No acute fracture, dislocation or destructive bony lesion in the left foot. Important findings were discussed with nurse Alonzo on the floor on 10/17/2018 at 3:35 p.m.
[2018-10-17] MEDS: Digoxin 125 mcg (0.125 mg) Tab PO SCH (19:00)
--- NOTE | 2018-10-17 19:10 | CP.PCM.PN ---
Subjective - Date & Time of Evaluation Date of Evaluation: 10/17/18 Time of Evaluation: 08:00 - Subjective Subjective: events noted Objective - Vital Signs/Intake and Output Vital Signs (last 24 hours): Temp Pulse Resp BP Pulse Ox 97.7 F 83 20 124/76 98 10/17/18 15:49 10/17/18 15:49 10/17/18 15:49 10/17/18 15:49 10/17/18 15:49 Intake and Output: 10/17/18 10/18/18 18:59 06:59 Output Total 400 Balance -400 - Medications Medications: Current Medications Aspirin (Aspirin Chewable) 81 mg PO DAILY [facility] Last Admin: 10/17/18 09:26 Dose: 81 mg Chlordiazepoxide (Librium) 25 mg PO Q6H PRN PRN Reason: Alcohol withdrawal sxs Last Admin: 10/17/18 14:03 Dose: 25 mg Clonidine HCl (Catapres) 0.1 mg PO TID [facility] Last Admin: 10/17/18 17:26 Dose: 0.1 mg Cyanocobalamin (Vitamin B12 1000 Mcg Tab) 1,000 mcg PO DAILY [facility] Last Admin: 10/17/18 09:26 Dose: 1,000 mcg Dextrose (Dextrose 50% Inj) 0 ml IV STAT PRN; Protocol PRN Reason: Hypoglycemia Protocol Dextrose (Glutose 15) 0 gm PO ONCE PRN; Protocol PRN Reason: Hypoglycemia Protocol Digoxin (Digoxin) 0.125 mg PO DAILY@1800 [facility] Last Admin: 10/16/18 17:01 Dose: 0.125 mg Diltiazem HCl (Cardizem) 30 mg PO Q8H [facility] Last Admin: 10/17/18 17:26 Dose: 30 mg Famotidine (Pepcid) 20 mg PO BID [facility] Last Admin: 10/17/18 17:25 Dose: 20 mg Folic Acid (Folic Acid) 1 mg PO DAILY [facility] Last Admin: 10/17/18 09:26 Dose: 1 mg Gabapentin (Neurontin) 800 mg PO BID [facility] Last Admin: 10/17/18 17:26 Dose: 800 mg Glucagon (Glucagen Diagnostic Kit) 0 mg IM STAT PRN; Protocol PRN Reason: Hypoglycemia Protocol Piperacillin Sod/Tazobactam (Sod 3.375 gm/ Sodium Chloride) 100 mls @ 200 mls/hr IVPB Q8H [facility]; Protocol Last Admin: 10/17/18 14:03 Dose: 200 mls/hr Insulin Glargine (Lantus) 50 unit SC HS [facility] Last Admin: 10/16/18 21:27 Dose: 50 units Insulin Human Regular (Novolin R) 0 unit SC [facility]; Protocol Last Admin: 10/17/18 17:27 Dose: 2 units Lisinopril (Zestril) 20 mg PO DAILY [facility] Last Admin: 10/17/18 09:26 Dose: 20 mg Magnesium Oxide (Mag-Ox) 400 mg PO BID [facility] Stop: 10/19/18 10:01 Last Admin: 10/17/18 17:27 Dose: 400 mg Metformin HCl (Glucophage) 1,000 mg PO BID [facility] Last Admin: 10/17/18 17:27 Dose: 1,000 mg Methadone HCl (Methadone) 10 mg PO Q24H [facility]; Taper Stop: 10/19/18 08:59 Last Admin: 10/17/18 09:26 Dose: 10 mg Multivitamins (Hexavitamin) 1 tab PO DAILY [facility] Last Admin: 10/17/18 09:26 Dose: 1 tab Quetiapine Fumarate (Seroquel) 50 mg PO HS PRN PRN Reason: severe insomnia Rivaroxaban (Xarelto) 20 mg PO DAILY [facility] Last Admin: 10/17/18 09:26 Dose: 20 mg Rosuvastatin Calcium (Crestor) 20 mg PO HS [facility] Last Admin: 10/16/18 21:28 Dose: 20 mg Temazepam (Restoril) 30 mg PO HS [facility] Last Admin: 10/16/18 21:28 Dose: 30 mg Thiamine HCl (Vitamin B1 Tab) 50 mg PO DAILY [facility] Last Admin: 10/17/18 09:26 Dose: 50 mg - Labs Labs: 10/17/18 08:37 10/17/18 08:37 PT 13.8 SECONDS (9.7-12.2) H 10/13/18 06:18 INR 1.3 10/13/18 06:18 APTT 28 SECONDS (21-34) 10/13/18 06:18 - Constitutional Appears: Non-toxic - Head Exam Head Exam: NORMOCEPHALIC - Eye Exam Eye Exam: absent: Scleral icterus - ENT Exam ENT Exam: Mucous Membranes Dry - Neck Exam Neck Exam: absent: Lymphadenopathy - Respiratory Exam Respiratory Exam: Decreased Breath Sounds - Cardiovascular Exam Cardiovascular Exam: REGULAR RHYTHM - GI/Abdominal Exam GI & Abdominal Exam: Distended - Rectal Exam Rectal Exam: Deferred - Exam Exam: NORMAL INSPECTION - Extremities Exam Extremities Exam: Pedal Edema - Back Exam Back Exam: absent: CVA tenderness (L), CVA tenderness (R) - Neurological Exam Neurological Exam: Alert, Awake - Skin Skin Exam: Dry Additional comments: VASC: DP and PT pulses palable, CFT slightly delayed, temperature gradient WNL, no edema noted ORTHO: pain with palpation to the right heel ulceration measuring approximately 1 cm in diameter x .1 cm secondary to DM and pressure, wound base is mixture of fibrotic and granular tissue and multiple superfical ulcerations on dorsum of digits left and right foot. There is a lesion, developing pressure ulcer/preulcerative lesion, on left heel measuring approximately 0.5 in diameter and darken discoloration. No erythema, no odor, no purulence, drainage or fluctance. No clinical signs of infection Assessment and Plan - Assessment and Plan (Free Text) Plan: xray foot shows fx podiatry to follow
--- NOTE | 2018-10-17 19:14 | CP.PCM.CON ---
History of Present Illness - History of Present Illness History of Present Illness: 68 year old male with PMH of Anemia, Atrial Fibrillation, CHF , Diabetes, Hepatitis C (treated 2014), HTN, Hypercholesterolemia, ?Sleep Apnea (not had a sleep study)is brought to the ED by ambulance with acute alcohol intoxication patient states that he fell at home,was unable to get to the phone,was able to get to the door and called for help.A Neighbour called 911 Referred for ID eval with bilateral foot ulcerations and pain. Patient is status post angiogram with patent vessels. IV antibiotic ordered pending cultures PMHx: Diabetes, hyperlipidemia, HTN, malignant melanoma PSHx: Bilateral knee replacements (2016), Umbilical hernia (2007), malignant melanoma removal 1994 Allergies: NKDA Medications: Metformin, Lantis, Gabapentin, Atorvastatin, Lisinopril, diltiazem Social: Admits to using 10bags of heroin/day (last used yesterday). Denies smoking, (+) occasional alcohol use Review of Systems - Review of Systems Review of Systems: tachycardic ,denies palpitations - Constitutional Constitutional: Frequent Falls, Sleep Apnea. absent: Fever Additional comments: hg/o frequesnt falls since last supper had bilateral knee replacements 2015.at that time he was told he had sleep apnea but no sleep study was done per patient - EENT Eyes: absent: Diplopia, Irritation Ears: absent: Ear Discharge, Dizziness Nose/Mouth/Throat: absent: Sore Throat, Neck Pain - Cardiovascular Cardiovascular: absent: Chest Pain, Palpitations - Respiratory Respiratory: absent: Cough, Hemoptysis - Gastrointestinal Gastrointestinal: absent: Abdominal Pain, Nausea, Vomiting - Genitourinary Genitourinary: absent: Dysuria, Hematuria - Integumentary Integumentary: Swelling, Wounds. absent: Rash - Neurological Neurological: absent: Dizziness, Syncope - Endocrine Endocrine: absent: Palpitations, Polyuria - Hematologic/Lymphatic Hematologic: absent: Easy Bleeding Review of Systems - Review of Systems All systems: reviewed and no additional remarkable complaints except - Constitutional Constitutional: absent: As Per HPI, Anorexia, Chills, Daytime Sleepiness, Excessive Sweating, Fatigue, Fever, Frequent Falls, Headache, Increased Appetite, Lethargy, Malaise, Night Sweats, Snoring, Sleep Apnea, Weight Gain, Weight Loss, Weakness, Other - EENT Eyes: absent: As Per HPI, Blind Spots, Blurred Vision, Change in Vision, Decreased Night Vision, Diplopia, Discharge, Dry Eye, Exophthalmos, Floaters, Irritation, Itchy Eyes, Loss of Peripheral Vision, Pain, Photophobia, Requires Corrective Lenses, Sees Flashes, Spots in Vision, Tunnel Vision, Other Visual Disturbances, Loss of Vision, Other Ears: absent: As Per HPI, Decreased Hearing, Ear Discharge, Ear Pain, Tinnitus, Abnormal Hearing, Disequilibrium, Dizziness, Other Nose/Mouth/Throat: absent: As Per HPI, Epistaxis, Nasal Congestion, Nasal Disc harge, Nasal Obstruction, Nasal Trauma, Nose Pain, Post Nasal Drip, Sinus Pain, Sinus Pressure, Bleeding Gums, Change in Voice, Dental Pain, Dry Mouth, Dysphagia, Halitosis, Hoarsness, Lip Swelling, Mouth Lesions, Mouth Pain, Odynophagia, Sore Throat, Throat Swelling, Tongue Swelling, Facial Pain, Neck Pain, Neck Mass, Other - Cardiovascular Cardiovascular: As Per HPI - Respiratory Respiratory: absent: As Per HPI, Cough, Dyspnea, Hemoptysis, Dyspnea on Exertion, Wheezing, Snoring, Stridor, Pain on Inspiration, Chest Congestion, Excessive Mucous Production, Change in Mucous Color, Pain with Coughing, Other - Gastrointestinal Gastrointestinal: absent: As Per HPI, Abdominal Pain, Belching, Bloating, Change in Bowel Habits, Change in Stool Character, Coffee Ground Emesis, Constipation, Cramping, Diarrhea, Dyspepsia, Dysphagia, Early Satiety, Excessive Flatus, Fecal Incontinence, Heartburn, Hematemesis, Hematochezia, Loose Stools, Melena, Nausea, Odynophagia, Temesmus, Vomiting, Other - Genitourinary Genitourinary: absent: As Per HPI, Change in Urinary Stream, Difficulty Urinating, Dysuria, Flank Pain, Hematuria, Pyuria, Nocturia, Urinary Incontinence, Urinary Frequency, Urinary Hesitance, Urinary Urgency, Voiding Freq/Small Amts, Freq UTI, Hx Renal/Bladder Calculi, Hx /Renal Surgery, Bladder Distension, Other - Musculoskeletal Musculoskeletal: As Per HPI - Integumentary Integumentary: Skin Pain, Wounds - Neurological Neurological: As Per HPI - Psychiatric Psychiatric: As Per HPI Past Patient History - Infectious Disease Hx of Infectious Diseases: None - Past Medical History & Family History Past Medical History?: Yes - Past Social History Smoking Status: Never Smoked Occupation: retired Alcohol: Other (drinks about 18 cans beer daily) Drugs: Opiates Home Situation {Lives}: Alone - CARDIAC Hx Congestive Heart Failure: Yes (A-fib) Hx Hypercholesterolemia: Yes Hx Hypertension: Yes - PULMONARY Hx Sleep Apnea: Yes - NEUROLOGICAL Hx Seizures: No - HEENT Hx HEENT Problems: No - RENAL Hx Chronic Kidney Disease: No - ENDOCRINE/METABOLIC Hx Diabetes Mellitus Type 2: Yes - HEMATOLOGICAL/ONCOLOGICAL Hx Anemia: Yes Hx Human Immunodeficiency Virus (HIV): No - INTEGUMENTARY Hx Dermatological Problems: Yes Hx Melanoma: Yes (Malignant Melonoma removed 1996) - MUSCULOSKELETAL/RHEUMATOLOGICAL Hx Falls: Yes - GASTROINTESTINAL Hx Gastrointestinal Disorders: No - GENITOURINARY/GYNECOLOGICAL Hx Sexually Transmitted Disorders: No - PSYCHIATRIC Hx Substance Use: Yes (heroin 10 bags a day) - SURGICAL HISTORY Hx Surgeries: Yes Hx Musculoskeletal Surgery: Yes (BILATERAL KNEE, CARPAL TUNNEL) Other/Comment: Umbilical Hernia Repair. B/L Knee Artho,. lymph nodes removeded from jamal axilla - ANESTHESIA Hx Anesthesia: Yes Hx Anesthesia Reactions: No Hx Malignant Hyperthermia: No Meds Allergies/Adverse Reactions: Allergies Allergy/AdvReac Type Severity Reaction Status Date / Time No Known Allergies Allergy Verified 10/12/18 23:37 - Medications Medications: Current Medications Aspirin (Aspirin Chewable) 81 mg PO DAILY [facility] Last Admin: 10/16/18 11:29 Dose: 81 mg Chlordiazepoxide (Librium) 25 mg PO Q24H [facility]; Taper Stop: 10/17/18 13:59 Last Admin: 10/16/18 14:17 Dose: 25 mg Chlordiazepoxide (Librium) 25 mg PO Q6H PRN PRN Reason: Alcohol withdrawal sxs Clonidine HCl (Catapres) 0.1 mg PO TID [facility] Last Admin: 10/16/18 17:01 Dose: 0.1 mg Cyanocobalamin (Vitamin B12 1000 Mcg Tab) 1,000 mcg PO DAILY [facility] Last Admin: 10/16/18 11:27 Dose: 1,000 mcg Dextrose (Dextrose 50% Inj) 0 ml IV STAT PRN; Protocol PRN Reason: Hypoglycemia Protocol Dextrose (Glutose 15) 0 gm PO ONCE PRN; Protocol PRN Reason: Hypoglycemia Protocol Digoxin (Digoxin) 0.125 mg PO DAILY@1800 [facility] Last Admin: 10/16/18 17:01 Dose: 0.125 mg Diltiazem HCl (Cardizem) 30 mg PO Q8H [facility] Last Admin: 10/16/18 16:55 Dose: 30 mg Famotidine (Pepcid) 20 mg PO BID [facility] Last Admin: 10/16/18 17:01 Dose: 20 mg Folic Acid (Folic Acid) 1 mg PO DAILY [facility] Last Admin: 10/16/18 11:29 Dose: 1 mg Gabapentin (Neurontin) 800 mg PO BID [facility] Last Admin: 10/16/18 17:02 Dose: 800 mg Glucagon (Glucagen Diagnostic Kit) 0 mg IM STAT PRN; Protocol PRN Reason: Hypoglycemia Protocol Piperacillin Sod/Tazobactam (Sod 3.375 gm/ Sodium Chloride) 100 mls @ 200 mls/hr IVPB Q8H [facility]; Protocol Last Admin: 10/16/18 14:17 Dose: 200 mls/hr Dextrose (Dextrose 5% In Water 1000 Ml) 1,000 mls @ 0 mls/hr IV .Q0M PRN; Protocol PRN Reason: Hypoglycemia Protocol Insulin Glargine (Lantus) [address] [facility] Last Admin: 10/15/18 21:37 Dose: 50 units Insulin Human Regular (Novolin R) 0 unit SC [facility]; Protocol Last Admin: 10/16/18 16:11 Dose: Not Given Lisinopril (Zestril) 20 mg PO DAILY [facility] Last Admin: 10/16/18 11:27 Dose: 20 mg Magnesium Oxide (Mag-Ox) 400 mg PO BID [facility] Stop: 10/19/18 10:01 Last Admin: 10/16/18 17:01 Dose: 400 mg Metformin HCl (Glucophage) 1,000 mg PO BID [facility] Last Admin: 10/16/18 17:01 Dose: 1,000 mg Methadone HCl (Methadone) 15 mg PO Q24H [facility]; Taper Stop: 10/19/18 08:59 Last Admin: 10/16/18 11:26 Dose: 15 mg Multivitamins (Hexavitamin) 1 tab PO DAILY [facility] Last Admin: 10/16/18 11:28 Dose: 1 tab Rivaroxaban (Xarelto) 20 mg PO DAILY [facility] Last Admin: 10/16/18 11:28 Dose: 20 mg Rosuvastatin Calcium (Crestor) [address] [facility] Last Admin: 10/15/18 21:37 Dose: 20 mg Temazepam (Restoril) 30 mg PO HS [facility] Last Admin: 10/15/18 21:37 Dose: 30 mg Thiamine HCl (Vitamin B1 Tab) 50 mg PO DAILY [facility] Last Admin: 10/16/18 11:25 Dose: 50 mg Physical Exam - Constitutional Appears: Non-toxic, Chronically Ill - Head Exam Head Exam: NORMOCEPHALIC - Eye Exam Eye Exam: absent: Scleral icterus - ENT Exam ENT Exam: Mucous Membranes Dry - Neck Exam Neck exam: Negative for: Lymphadenopathy - Respiratory Exam Respiratory Exam: Decreased Breath Sounds, Prolonged Expiratory Phase, Rhonchi - Cardiovascular Exam Cardiovascular Exam: REGULAR RHYTHM, +S1, +S2 - GI/Abdominal Exam GI & Abdominal Exam: Diminished Bowel Sounds, Soft. absent: Tenderness - Rectal Exam Rectal Exam: Deferred - Exam Exam: NORMAL INSPECTION - Extremities Exam Extremities exam: Positive for: pedal edema, pedal pulses present. Negative for: calf tenderness, tenderness Additional comments: VASC: DP and PT pulses palable, CFT slightly delayed, temperature gradient WNL, no edema noted ORTHO: pain with palpation to the right heel ulceration measuring approximately 1 cm in diameter x .1 cm secondary to DM and pressure, wound base is mixture of fibrotic and granular tissue and multiple superfical ulcerations on dorsum of digits left and right foot. There is a lesion, developing pressure ulcer/preulcerative lesion, on left heel measuring approximately 0.5 in diameter and darken discoloration. No erythema, no odor, no purulence, drainage or fluctance. No clinical signs of infection - Back Exam Back exam: absent: CVA tenderness (L), CVA tenderness (R) - Neurological Exam Neurological exam: Alert, CN II-XII Intact, Oriented x3, Reflexes Normal - Psychiatric Exam Psychiatric exam: Normal Mood - Skin Skin Exam: Dry Results - Vital Signs Recent Vital Signs: Last Vital Signs Temp 97.5 F L 10/16/18 15:00 Pulse 66 10/16/18 16:00 Resp 20 10/16/18 15:00 BP 136/92 H 10/16/18 15:00 Pulse Ox 97 10/16/18 15:00 - Labs Result Diagrams: 10/17/18 08:37 10/17/18 08:37 Labs: Laboratory Results - last 24 hr 0310/16/18 10/16/18 07:19 09:05 09:05 WBC 5.3 RBC 3.88 L Hgb 11.0 L Hct 34.4 L MCV 88.7 MCH 28.4 MCHC 32.1 L RDW 21.1 H Plt Count 202 MPV 8.0 Neut % (Auto) 63.1 Lymph % (Auto) 22.1 [place] % (Auto) 8.4 Eos % (Auto) 4.8 H Baso % (Auto) 1.6 Neut # (Auto) 3.3 Lymph # (Auto) 1.2 [place] # (Auto) 0.4 Eos # (Auto) 0.3 Baso # (Auto) 0.1 Sodium 135 Potassium 4.5 Chloride 105 Carbon Dioxide 23 Anion Gap 12 BUN 20 Creatinine 1.0 Est GFR ( Amer) > 60 Est GFR (Non-Af Amer) > 60 Random Glucose 131 H Calcium 9.0 Phosphorus 3.5 Magnesium 1.4 L Total Bilirubin 0.5 AST 24 ALT < 6 L D Alkaline Phosphatase 105 Total Protein 7.1 Albumin 3.8 Globulin 3.3 Albumin/Globulin Ratio 1.2 RBC Folate 901 Assessment & Plan (1) Atrial fibrillation with rapid ventricular response Status: Acute (2) Chronic wound of extremity Status: Acute - Assessment and Plan (Free Text) Plan: consider imaging of feet to r/o OM
--- NOTE | 2018-10-17 19:58 | CP.PCM.PN ---
Subjective - Date & Time of Evaluation Date of Evaluation: 10/17/18 - Subjective Subjective: patient examined today denies SOB, no nausea, no fever, no chest pain, no diarrhea Objective - Vital Signs/Intake and Output Vital Signs (last 24 hours): Temp Pulse Resp BP Pulse Ox 97.7 F 83 20 124/76 98 10/17/18 15:49 10/17/18 15:49 10/17/18 15:49 10/17/18 15:49 10/17/18 15:49 Intake and Output: 10/17/18 10/18/18 18:59 06:59 Output Total 400 Balance -400 - Medications Medications: Current Medications Aspirin (Aspirin Chewable) 81 mg PO DAILY [facility] Last Admin: 10/17/18 09:26 Dose: 81 mg Chlordiazepoxide (Librium) 25 mg PO Q6H PRN PRN Reason: Alcohol withdrawal sxs Last Admin: 10/17/18 14:03 Dose: 25 mg Clonidine HCl (Catapres) 0.1 mg PO TID [facility] Last Admin: 10/17/18 17:26 Dose: 0.1 mg Cyanocobalamin (Vitamin B12 1000 Mcg Tab) 1,000 mcg PO DAILY [facility] Last Admin: 10/17/18 09:26 Dose: 1,000 mcg Dextrose (Dextrose 50% Inj) 0 ml IV STAT PRN; Protocol PRN Reason: Hypoglycemia Protocol Dextrose (Glutose 15) 0 gm PO ONCE PRN; Protocol PRN Reason: Hypoglycemia Protocol Digoxin (Digoxin) 0.125 mg PO DAILY@1800 [facility] Last Admin: 10/16/18 17:01 Dose: 0.125 mg Diltiazem HCl (Cardizem) 30 mg PO Q8H [facility] Last Admin: 10/17/18 17:26 Dose: 30 mg Famotidine (Pepcid) 20 mg PO BID [facility] Last Admin: 10/17/18 17:25 Dose: 20 mg Folic Acid (Folic Acid) 1 mg PO DAILY [facility] Last Admin: 10/17/18 09:26 Dose: 1 mg Gabapentin (Neurontin) 800 mg PO BID [facility] Last Admin: 10/17/18 17:26 Dose: 800 mg Glucagon (Glucagen Diagnostic Kit) 0 mg IM STAT PRN; Protocol PRN Reason: Hypoglycemia Protocol Piperacillin Sod/Tazobactam (Sod 3.375 gm/ Sodium Chloride) 100 mls @ 200 mls/hr IVPB Q8H [facility]; Protocol Last Admin: 10/17/18 14:03 Dose: 200 mls/hr Insulin Glargine (Lantus) 50 unit SC HS [facility] Last Admin: 10/16/18 21:27 Dose: 50 units Insulin Human Regular (Novolin R) 0 unit SC [facility]; Protocol Last Admin: 10/17/18 17:27 Dose: 2 units Lisinopril (Zestril) 20 mg PO DAILY [facility] Last Admin: 10/17/18 09:26 Dose: 20 mg Magnesium Oxide (Mag-Ox) 400 mg PO BID [facility] Stop: 10/19/18 10:01 Last Admin: 10/17/18 17:27 Dose: 400 mg Metformin HCl (Glucophage) 1,000 mg PO BID [facility] Last Admin: 10/17/18 17:27 Dose: 1,000 mg Methadone HCl (Methadone) 10 mg PO Q24H [facility]; Taper Stop: 10/19/18 08:59 Last Admin: 10/17/18 09:26 Dose: 10 mg Multivitamins (Hexavitamin) 1 tab PO DAILY [facility] Last Admin: 10/17/18 09:26 Dose: 1 tab Quetiapine Fumarate (Seroquel) 50 mg PO HS PRN PRN Reason: severe insomnia Rivaroxaban (Xarelto) 20 mg PO DAILY [facility] Last Admin: 10/17/18 09:26 Dose: 20 mg Rosuvastatin Calcium (Crestor) 20 mg PO HS [facility] Last Admin: 10/16/18 21:28 Dose: 20 mg Temazepam (Restoril) 30 mg PO HS [facility] Last Admin: 10/16/18 21:28 Dose: 30 mg Thiamine HCl (Vitamin B1 Tab) 50 mg PO DAILY [facility] Last Admin: 10/17/18 09:26 Dose: 50 mg - Labs Labs: 10/17/18 08:37 10/17/18 08:37 PT 13.8 SECONDS (9.7-12.2) H 10/13/18 06:18 INR 1.3 10/13/18 06:18 APTT 28 SECONDS (21-34) 10/13/18 06:18 - Constitutional Appears: Well - Head Exam Head Exam: ATRAUMATIC, NORMAL INSPECTION, NORMOCEPHALIC - Eye Exam Eye Exam: EOMI, Normal appearance, PERRL Pupil Exam: NORMAL ACCOMODATION, PERRL - ENT Exam ENT Exam: Mucous Membranes Moist, Normal Exam - Neck Exam Neck Exam: Full ROM, Normal Inspection. absent: Lymphadenopathy - Respiratory Exam Respiratory Exam: Decreased Breath Sounds - Cardiovascular Exam Cardiovascular Exam: REGULAR RHYTHM, +S1, +S2 - GI/Abdominal Exam GI & Abdominal Exam: Soft, Diminished Bowel Sounds - Rectal Exam Rectal Exam: Deferred Assessment and Plan - Assessment and Plan (Free Text) Plan: patient seen and evaluated today foot xray reviewed vitals reviewed labs reviewed medications reviewed aspirin chewable tab cardizem catapress crestor dextrose 50% inj digoxin folic acid glucagen diagnostic kit glucophage glutose 15 hexavitamin lantus librium mag-ox methadone neurontin novolin r pepcid piperacillin sod/ tazobactam sod 3.375gm resotril seroquel vitamin b1 tab vitamin b12 1000mcg tab xarelto zestril
[2018-10-17] MEDS: (Lantus) Insulin Glargine, Recombinant SC SCH (21:29)
--- NOTE | 2018-10-18 00:23 | CP.PCM.PN ---
Subjective - Date & Time of Evaluation Date of Evaluation: 10/17/18 Time of Evaluation: 14:00 - Subjective Subjective: Podiatry Progress Note- Dr. Daly 68 M seen and evaluated at bedside for bilaterally foot ulcerations. Denies acute overnight events. Reports doing okay and that ex is visiting him today. Patient is sitting at bedside, in NAD and AA0x3. Patient denies of pain. Patient denies nausea, fever, shortness of breath, chest pains. Reports wearing the multipodus boots at all times when in bed. Objective - Vital Signs/Intake and Output Vital Signs (last 24 hours): Temp Pulse Resp BP Pulse Ox 97.7 F 83 20 124/76 98 10/17/18 15:49 10/17/18 15:49 10/17/18 15:49 10/17/18 15:49 10/17/18 15:49 Intake and Output: 10/17/18 10/18/18 18:59 06:59 Output Total 400 Balance -400 - Medications Medications: Current Medications Aspirin (Aspirin Chewable) 81 mg PO DAILY [facility] Last Admin: 10/17/18 09:26 Dose: 81 mg Chlordiazepoxide (Librium) 25 mg PO Q6H PRN PRN Reason: Alcohol withdrawal sxs Last Admin: 10/17/18 21:28 Dose: 25 mg Clonidine HCl (Catapres) 0.1 mg PO TID [facility] Last Admin: 10/17/18 17:26 Dose: 0.1 mg Cyanocobalamin (Vitamin B12 1000 Mcg Tab) 1,000 mcg PO DAILY [facility] Last Admin: 10/17/18 09:26 Dose: 1,000 mcg Dextrose (Dextrose 50% Inj) 0 ml IV STAT PRN; Protocol PRN Reason: Hypoglycemia Protocol Dextrose (Glutose 15) 0 gm PO ONCE PRN; Protocol PRN Reason: Hypoglycemia Protocol Digoxin (Digoxin) 0.125 mg PO DAILY@1800 [facility] Last Admin: 10/17/18 19:00 Dose: Not Given Diltiazem HCl (Cardizem) 30 mg PO Q8H [facility] Last Admin: 10/17/18 17:26 Dose: 30 mg Famotidine (Pepcid) 20 mg PO BID [facility] Last Admin: 10/17/18 17:25 Dose: 20 mg Folic Acid (Folic Acid) 1 mg PO DAILY [facility] Last Admin: 10/17/18 09:26 Dose: 1 mg Gabapentin (Neurontin) 800 mg PO BID [facility] Last Admin: 10/17/18 17:26 Dose: 800 mg Glucagon (Glucagen Diagnostic Kit) 0 mg IM STAT PRN; Protocol PRN Reason: Hypoglycemia Protocol Piperacillin Sod/Tazobactam (Sod 3.375 gm/ Sodium Chloride) 100 mls @ 200 mls/hr IVPB Q8H [facility]; Protocol Last Admin: 10/17/18 21:31 Dose: 200 mls/hr Insulin Glargine (Lantus) 50 unit SC HS [facility] Last Admin: 10/17/18 21:29 Dose: 50 units Insulin Human Regular (Novolin R) 0 unit SC [facility]; Protocol Last Admin: 10/17/18 22:21 Dose: Not Given Lisinopril (Zestril) 20 mg PO DAILY [facility] Last Admin: 10/17/18 09:26 Dose: 20 mg Magnesium Oxide (Mag-Ox) 400 mg PO BID [facility] Stop: 10/19/18 10:01 Last Admin: 10/17/18 17:27 Dose: 400 mg Metformin HCl (Glucophage) 1,000 mg PO BID [facility] Last Admin: 10/17/18 17:27 Dose: 1,000 mg Methadone HCl (Methadone) 10 mg PO Q24H [facility]; Taper Stop: 10/19/18 08:59 Last Admin: 10/17/18 09:26 Dose: 10 mg Multivitamins (Hexavitamin) 1 tab PO DAILY [facility] Last Admin: 10/17/18 09:26 Dose: 1 tab Quetiapine Fumarate (Seroquel) 50 mg PO HS PRN PRN Reason: severe insomnia Rivaroxaban (Xarelto) 20 mg PO DAILY [facility] Last Admin: 10/17/18 09:26 Dose: 20 mg Rosuvastatin Calcium (Crestor) 20 mg PO HS [facility] Last Admin: 10/17/18 21:28 Dose: 20 mg Temazepam (Restoril) 30 mg PO HS [facility] Last Admin: 10/17/18 21:28 Dose: 30 mg Thiamine HCl (Vitamin B1 Tab) 50 mg PO DAILY [facility] Last Admin: 10/17/18 09:26 Dose: 50 mg - Labs Labs: 10/17/18 08:37 10/17/18 08:37 PT 13.8 SECONDS (9.7-12.2) H 10/13/18 06:18 INR 1.3 10/13/18 06:18 APTT 28 SECONDS (21-34) 10/13/18 06:18 - Constitutional Appears: Well, Non-toxic, No Acute Distress - Extremities Exam Extremities Exam: absent: Calf Tenderness Additional comments: VASC: DP and PT pulses palable, CFT slightly delayed, temperature gradient WNL, no edema noted ORTHO: pain with palpation to the right heel ulceration measuring approximately 1 cm in diameter x .1 cm secondary to DM and pressure, wound base is mixture of fibrotic and granular tissue and multiple superfical ulcerations on dorsum of digits left and right foot. There is a lesion, developing pressure ulcer/preulcerative lesion, on left heel measuring approximately 0.5 in diameter and darken discoloration. No erythema, no odor, no purulence, drainage or fluctance. No clinical signs of infection - Neurological Exam Neurological Exam: Alert, Awake - Psychiatric Exam Psychiatric exam: Normal Affect, Normal Mood Assessment and Plan - Assessment and Plan (Free Text) Assessment: 68 M seen and evaluated at bedside for bilaterally foot ulcerations- stable Plan: Patient seen and examined Discussed plan in detail with attending Dr. Daly All questions/concerns addressed Labs, vitals reviewed- afebrile Cleansed ulcerations wit hydrogen peroxide, dressed with hydrogen peroxide wet to dry, dsd, and cling bilaterally Patient to continue to wear multipodus boots in bed at all times. Podiatry will continue to follow while in house Nursing communication: dressing change twice a day. To clean lesions with hydrogen peroxide q 12. Thank you Upon discharge, patient is to follow up with Dr. Daly in his office
[2018-10-18] MEDS: Piperacillin/Tazobact 3.375 GM in Sodium Chloride 100 ML IVPB SCH ×3 (05:13→21:53)
[2018-10-18 07:19] LABS: BASO # 0.1 K/uL (0.0-0.2); BASO % 1.6 % (0.0-2.0); EOS # 0.2 K/uL (0.0-0.7); EOS % 3.6 % (0.0-4.0); HEMOGLOBIN 10.1 g/dL (12.0-18.0); LYMPH # 1.3 K/uL (1.0-4.3); LYMPH % 25.9 % (20.0-40.0); MEAN CELL VOLUME 89.6 fL (80.0-94.0); MEAN CORPUSCULAR HEMOGLOBIN 28.8 pg (27.0-31.0); MEAN CORPUSCULAR HGB CONC 32.1 g/dL (33.0-37.0); MEAN PLATELET VOLUME 8.4 fL (7.2-11.7); MONO # 0.5 K/uL (0.0-0.8); MONO % 9.1 % (0.0-10.0); NEUT % 59.8 % (50.0-75.0); RBC 3.49 Mil/uL (4.40-5.90); RED CELL DISTRIBUTION WIDTH 21.4 % (11.5-14.5)
[2018-10-18 07:23] LABS: ALB/GLOB RATIO 1.1 (1.0-2.1); ALBUMIN 3.5 g/dL (3.5-5.0); ALT/SGPT 11 U/L (21-72); AST/SGOT 22 U/L (17-59); BLOOD UREA NITROGEN 26 mg/dL (9-20); CALCIUM 9.2 mg/dl (8.6-10.4); GFR NON-AFRICAN AMERICAN 55
[2018-10-18] MEDS: (Novolin R) Insulin Human Regular 100 units/ml vial SC SCH ×4 (07:58→22:15)
[2018-10-18] MEDS: Multiple Vitamins Tab PO SCH (09:27)
[2018-10-18] MEDS: Magnesium Oxide 400 mg Tab UD PO SCH ×2 (09:27→17:25)
--- NOTE | 2018-10-18 11:35 | CP.PCM.PN ---
Subjective - Date & Time of Evaluation Date of Evaluation: 10/18/18 Time of Evaluation: 11:34 - Subjective Subjective: Podiatry Progress Note- Dr. Daly 68 M seen and evaluated at bedside for bilaterally foot ulcerations. Denies acute overnight events. States hes getting a new IV line now. Patient is sitting at bedside, in NAD and AA0x3. Patient denies of pain. Patient denies nausea, fever, shortness of breath, chest pains. Reports wearing the multipodus boots at all times when in bed. Objective - Vital Signs/Intake and Output Vital Signs (last 24 hours): Temp Pulse Resp BP Pulse Ox 97.7 F 62 20 99/62 L 96 10/18/18 07:25 10/18/18 07:25 10/18/18 07:25 10/18/18 07:25 10/18/18 07:25 Intake and Output: 10/18/18 10/18/18 06:59 18:59 Intake Total 340 Output Total 550 Balance -210 - Medications Medications: Current Medications Aspirin (Aspirin Chewable) 81 mg PO DAILY REPLACED BY [facility] Last Admin: 10/18/18 09:28 Dose: 81 mg Chlordiazepoxide (Librium) 25 mg PO Q6H PRN PRN Reason: Alcohol withdrawal sxs Last Admin: 10/18/18 09:47 Dose: 25 mg Clonidine HCl (Catapres) 0.1 mg PO TID REPLACED BY [facility] Last Admin: 10/18/18 09:28 Dose: 0.1 mg Cyanocobalamin (Vitamin B12 1000 Mcg Tab) 1,000 mcg PO DAILY REPLACED BY [facility] Last Admin: 10/18/18 09:27 Dose: 1,000 mcg Dextrose (Dextrose 50% Inj) 0 ml IV STAT PRN; Protocol PRN Reason: Hypoglycemia Protocol Dextrose (Glutose 15) 0 gm PO ONCE PRN; Protocol PRN Reason: Hypoglycemia Protocol Digoxin (Digoxin) 0.125 mg PO DAILY@1800 REPLACED BY [facility] Last Admin: 10/17/18 19:00 Dose: Not Given Diltiazem HCl (Cardizem) 30 mg PO Q8H REPLACED BY [facility] Last Admin: 10/18/18 09:28 Dose: 30 mg Famotidine (Pepcid) 20 mg PO BID REPLACED BY [facility] Last Admin: 10/18/18 09:27 Dose: 20 mg Folic Acid (Folic Acid) 1 mg PO DAILY REPLACED BY [facility] Last Admin: 10/18/18 09:27 Dose: 1 mg Gabapentin (Neurontin) 800 mg PO BID REPLACED BY [facility] Last Admin: 10/18/18 09:28 Dose: 800 mg Glucagon (Glucagen Diagnostic Kit) 0 mg IM STAT PRN; Protocol PRN Reason: Hypoglycemia Protocol Piperacillin Sod/Tazobactam (Sod 3.375 gm/ Sodium Chloride) 100 mls @ 200 mls/hr IVPB Q8H REPLACED BY [facility]; Protocol Last Admin: 10/18/18 05:13 Dose: 200 mls/hr Insulin Glargine (Lantus) 50 unit SC HS REPLACED BY [facility] Last Admin: 10/17/18 21:29 Dose: 50 units Insulin Human Regular (Novolin R) 0 unit SC ACHS REPLACED BY [facility]; Protocol Last Admin: 10/18/18 07:58 Dose: Not Given Lisinopril (Zestril) 20 mg PO DAILY REPLACED BY [facility] Last Admin: 10/18/18 09:27 Dose: 20 mg Magnesium Oxide (Mag-Ox) 400 mg PO BID [facility] Stop: 10/19/18 10:01 Last Admin: 10/18/18 09:27 Dose: 400 mg Metformin HCl (Glucophage) 1,000 mg PO BID REPLACED BY [facility] Last Admin: 10/18/18 09:28 Dose: 1,000 mg Methadone HCl (Methadone) 5 mg PO Q24H REPLACED BY [facility]; Taper Stop: 10/19/18 08:59 Last Admin: 10/18/18 09:27 Dose: 5 mg Multivitamins (Hexavitamin) 1 tab PO DAILY REPLACED BY [facility] Last Admin: 10/18/18 09:27 Dose: 1 tab Quetiapine Fumarate (Seroquel) 50 mg PO HS PRN PRN Reason: severe insomnia Rivaroxaban (Xarelto) 20 mg PO DAILY REPLACED BY [facility] Last Admin: 10/18/18 09:27 Dose: 20 mg Rosuvastatin Calcium (Crestor) 20 mg PO HS REPLACED BY [facility] Last Admin: 10/17/18 21:28 Dose: 20 mg Temazepam (Restoril) 30 mg PO HS REPLACED BY [facility] Last Admin: 10/17/18 21:28 Dose: 30 mg Thiamine HCl (Vitamin B1 Tab) 50 mg PO DAILY REPLACED BY [facility] Last Admin: 10/18/18 09:27 Dose: 50 mg - Labs Labs: 10/18/18 07:04 10/18/18 07:04 PT 13.8 SECONDS (9.7-12.2) H 10/13/18 06:18 INR 1.3 10/13/18 06:18 APTT 28 SECONDS (21-34) 10/13/18 06:18 - Constitutional Appears: Well, Non-toxic, No Acute Distress - Head Exam Head Exam: ATRAUMATIC, NORMOCEPHALIC - Eye Exam Eye Exam: Normal appearance Pupil Exam: NORMAL ACCOMODATION - ENT Exam ENT Exam: Mucous Membranes Moist - Cardiovascular Exam Cardiovascular Exam: REGULAR RHYTHM, +S1, +S2 - Extremities Exam Additional comments: VASC: DP and PT pulses palable, CFT slightly delayed, temperature gradient WNL, no edema noted ORTHO: pain with palpation to the right heel ulceration measuring approximately 1 cm in diameter x .1 cm secondary to DM and pressure, wound base is mixture of fibrotic and granular tissue and multiple superfical ulcerations on dorsum of digits left and right foot. There is a lesion, developing pressure ulcer/preulcerative lesion, on left heel measuring approximately 0.5 in diameter and darken discoloration. No erythema, no odor, no purulence, drainage or fluctance. No clinical signs of infection - Neurological Exam Neurological Exam: Alert, Awake, Oriented x3 Assessment and Plan - Assessment and Plan (Free Text) Assessment: 68 M seen and evaluated at bedside for bilaterally foot ulcerations- stable Plan: Patient seen and examined Discussed plan in detail with attending Dr. Daly All questions/concerns addressed Labs, vitals reviewed- afebrile Cleansed ulcerations wit hydrogen peroxide, dressed with hydrogen peroxide wet to dry, DSD Patient to continue to wear multipodus boots in bed at all times. Podiatry will continue to follow while in house Nursing communication: dressing change twice a day. To clean lesions with hydrogen peroxide q 12. Thank you Upon discharge, patient is to follow up with Dr. Daly in his office
--- NOTE | 2018-10-18 15:27 | CP.PCM.PN ---
Subjective - Date & Time of Evaluation Date of Evaluation: 10/18/18 Time of Evaluation: 15:27 - Subjective Subjective: stress test saturday Objective - Vital Signs/Intake and Output Vital Signs (last 24 hours): Temp Pulse Resp BP Pulse Ox 97.7 F 62 20 99/62 L 96 10/18/18 07:25 10/18/18 07:25 10/18/18 07:25 10/18/18 07:25 10/18/18 07:25 Intake and Output: 10/18/18 10/18/18 06:59 18:59 Intake Total 340 Output Total 550 Balance -210 - Medications Medications: Current Medications Aspirin (Aspirin Chewable) 81 mg PO DAILY [facility] Last Admin: 10/18/18 09:28 Dose: 81 mg Chlordiazepoxide (Librium) 25 mg PO Q6H PRN PRN Reason: Alcohol withdrawal sxs Last Admin: 10/18/18 09:47 Dose: 25 mg Clonidine HCl (Catapres) 0.1 mg PO TID [facility] Last Admin: 10/18/18 13:45 Dose: 0.1 mg Cyanocobalamin (Vitamin B12 1000 Mcg Tab) 1,000 mcg PO DAILY [facility] Last Admin: 10/18/18 09:27 Dose: 1,000 mcg Dextrose (Dextrose 50% Inj) 0 ml IV STAT PRN; Protocol PRN Reason: Hypoglycemia Protocol Dextrose (Glutose 15) 0 gm PO ONCE PRN; Protocol PRN Reason: Hypoglycemia Protocol Digoxin (Digoxin) 0.125 mg PO DAILY@1800 [facility] Last Admin: 10/17/18 19:00 Dose: Not Given Diltiazem HCl (Cardizem) 30 mg PO Q8H [facility] Last Admin: 10/18/18 09:28 Dose: 30 mg Famotidine (Pepcid) 20 mg PO BID [facility] Last Admin: 10/18/18 09:27 Dose: 20 mg Folic Acid (Folic Acid) 1 mg PO DAILY [facility] Last Admin: 10/18/18 09:27 Dose: 1 mg Gabapentin (Neurontin) 800 mg PO BID [facility] Last Admin: 10/18/18 09:28 Dose: 800 mg Glucagon (Glucagen Diagnostic Kit) 0 mg IM STAT PRN; Protocol PRN Reason: Hypoglycemia Protocol Piperacillin Sod/Tazobactam (Sod 3.375 gm/ Sodium Chloride) 100 mls @ 200 mls/hr IVPB Q8H [facility]; Protocol Last Admin: 10/18/18 13:45 Dose: 200 mls/hr Insulin Glargine (Lantus) 50 unit SC [facility] Last Admin: 10/17/18 21:29 Dose: 50 units Insulin Human Regular (Novolin R) 0 unit SC [facility]; Protocol Last Admin: 10/18/18 12:23 Dose: Not Given Lisinopril (Zestril) 20 mg PO DAILY [facility] Last Admin: 10/18/18 09:27 Dose: 20 mg Magnesium Oxide (Mag-Ox) 400 mg PO BID [facility] Stop: 10/19/18 10:01 Last Admin: 10/18/18 09:27 Dose: 400 mg Metformin HCl (Glucophage) 1,000 mg PO BID [facility] Last Admin: 10/18/18 09:28 Dose: 1,000 mg Methadone HCl (Methadone) 5 mg PO Q24H [facility]; Taper Stop: 10/19/18 08:59 Last Admin: 10/18/18 09:27 Dose: 5 mg Multivitamins (Hexavitamin) 1 tab PO DAILY [facility] Last Admin: 10/18/18 09:27 Dose: 1 tab Quetiapine Fumarate (Seroquel) 50 mg PO HS PRN PRN Reason: severe insomnia Rivaroxaban (Xarelto) 20 mg PO DAILY [facility] Last Admin: 10/18/18 09:27 Dose: 20 mg Rosuvastatin Calcium (Crestor) 20 mg PO HS [facility] Last Admin: 10/17/18 21:28 Dose: 20 mg Temazepam (Restoril) 30 mg PO HS [facility] Last Admin: 10/17/18 21:28 Dose: 30 mg Thiamine HCl (Vitamin B1 Tab) 50 mg PO DAILY [facility] Last Admin: 10/18/18 09:27 Dose: 50 mg - Labs Labs: 10/18/18 07:04 10/18/18 07:04 PT 13.8 SECONDS (9.7-12.2) H 10/13/18 06:18 INR 1.3 10/13/18 06:18 APTT 28 SECONDS (21-34) 10/13/18 06:18 - Constitutional Appears: Well - Head Exam Head Exam: ATRAUMATIC, NORMAL INSPECTION, NORMOCEPHALIC - Eye Exam Eye Exam: EOMI, Normal appearance, PERRL Pupil Exam: NORMAL ACCOMODATION, PERRL - ENT Exam ENT Exam: Mucous Membranes Moist, Normal Exam - Neck Exam Neck Exam: Full ROM, Normal Inspection. absent: Lymphadenopathy - Respiratory Exam Respiratory Exam: Clear to Ausculation Bilateral, NORMAL BREATHING PATTERN - Cardiovascular Exam Cardiovascular Exam: REGULAR RHYTHM, +S1, +S2. absent: Murmur - GI/Abdominal Exam GI & Abdominal Exam: Soft, Normal Bowel Sounds. absent: Tenderness - Extremities Exam Extremities Exam: Full ROM, Normal Capillary Refill, Normal Inspection. absent: Joint Swelling, Pedal Edema - Back Exam Back Exam: NORMAL INSPECTION - Neurological Exam Neurological Exam: Alert, Awake, CN II-XII Intact, Normal Gait, Oriented x3 - Psychiatric Exam Psychiatric exam: Normal Affect, Normal Mood - Skin Skin Exam: Dry, Intact, Normal Color, Warm Assessment and Plan (1) Atrial fibrillation with rapid ventricular response Status: Acute (2) Dizziness Status: Acute (3) Hyperglycemia Status: Acute (4) Hyperlipemia Status: Acute (5) Syncope Status: Acute (6) Anemia Status: Acute (7) Atrial fibrillation Status: Acute
[2018-10-18] MEDS: Digoxin 125 mcg (0.125 mg) Tab PO SCH (17:24)
--- NOTE | 2018-10-18 19:52 | CP.PCM.PN ---
Subjective - Date & Time of Evaluation Date of Evaluation: 10/18/18 - Subjective Subjective: patient examined today denies fever, nausea, vomiting, diarrhea, shortness of breath, chest pain, dizziness Objective - Vital Signs/Intake and Output Vital Signs (last 24 hours): Temp Pulse Resp BP Pulse Ox 97.3 F L 65 18 112/72 99 10/18/18 15:30 10/18/18 15:30 10/18/18 15:30 10/18/18 15:30 10/18/18 15:30 - Medications Medications: Current Medications Aspirin (Aspirin Chewable) 81 mg PO DAILY [facility] Last Admin: 10/18/18 09:28 Dose: 81 mg Chlordiazepoxide (Librium) 25 mg PO Q6H PRN PRN Reason: Alcohol withdrawal sxs Last Admin: 10/18/18 17:25 Dose: 25 mg Clonidine HCl (Catapres) 0.1 mg PO TID [facility] Last Admin: 10/18/18 17:25 Dose: 0.1 mg Cyanocobalamin (Vitamin B12 1000 Mcg Tab) 1,000 mcg PO DAILY [facility] Last Admin: 10/18/18 09:27 Dose: 1,000 mcg Dextrose (Dextrose 50% Inj) 0 ml IV STAT PRN; Protocol PRN Reason: Hypoglycemia Protocol Dextrose (Glutose 15) 0 gm PO ONCE PRN; Protocol PRN Reason: Hypoglycemia Protocol Digoxin (Digoxin) 0.125 mg PO DAILY@1800 [facility] Last Admin: 10/18/18 17:24 Dose: 0.125 mg Diltiazem HCl (Cardizem) 30 mg PO Q8H [facility] Last Admin: 10/18/18 16:25 Dose: 30 mg Famotidine (Pepcid) 20 mg PO BID [facility] Last Admin: 10/18/18 17:25 Dose: 20 mg Folic Acid (Folic Acid) 1 mg PO DAILY [facility] Last Admin: 10/18/18 09:27 Dose: 1 mg Gabapentin (Neurontin) 800 mg PO BID [facility] Last Admin: 10/18/18 17:24 Dose: 800 mg Glucagon (Glucagen Diagnostic Kit) 0 mg IM STAT PRN; Protocol PRN Reason: Hypoglycemia Protocol Piperacillin Sod/Tazobactam (Sod 3.375 gm/ Sodium Chloride) 100 mls @ 200 mls/hr IVPB Q8H [facility]; Protocol Last Admin: 10/18/18 13:45 Dose: 200 mls/hr Insulin Glargine (Lantus) 50 unit SC [facility] Last Admin: 10/17/18 21:29 Dose: 50 units Insulin Human Regular (Novolin R) 0 unit SC [facility]; Protocol Last Admin: 10/18/18 17:23 Dose: 2 units Lisinopril (Zestril) 20 mg PO DAILY [facility] Last Admin: 10/18/18 09:27 Dose: 20 mg Magnesium Oxide (Mag-Ox) 400 mg PO BID [facility] Stop: 10/19/18 10:01 Last Admin: 10/18/18 17:25 Dose: 400 mg Metformin HCl (Glucophage) 1,000 mg PO BID [facility] Last Admin: 10/18/18 17:25 Dose: 1,000 mg Methadone HCl (Methadone) 5 mg PO Q24H [facility]; Taper Stop: 10/19/18 08:59 Last Admin: 10/18/18 09:27 Dose: 5 mg Multivitamins (Hexavitamin) 1 tab PO DAILY [facility] Last Admin: 10/18/18 09:27 Dose: 1 tab Quetiapine Fumarate (Seroquel) 50 mg PO HS PRN PRN Reason: severe insomnia Rivaroxaban (Xarelto) 20 mg PO DAILY [facility] Last Admin: 10/18/18 09:27 Dose: 20 mg Rosuvastatin Calcium (Crestor) 20 mg PO HS [facility] Last Admin: 10/17/18 21:28 Dose: 20 mg Temazepam (Restoril) 30 mg PO HS [facility] Last Admin: 10/17/18 21:28 Dose: 30 mg Thiamine HCl (Vitamin B1 Tab) 50 mg PO DAILY [facility] Last Admin: 10/18/18 09:27 Dose: 50 mg - Labs Labs: 10/18/18 07:04 10/18/18 07:04 PT 13.8 SECONDS (9.7-12.2) H 10/13/18 06:18 INR 1.3 10/13/18 06:18 APTT 28 SECONDS (21-34) 10/13/18 06:18 - Constitutional Appears: Well - Head Exam Head Exam: ATRAUMATIC, NORMAL INSPECTION, NORMOCEPHALIC - Eye Exam Eye Exam: EOMI, Normal appearance, PERRL Pupil Exam: NORMAL ACCOMODATION, PERRL - ENT Exam ENT Exam: Mucous Membranes Moist, Normal Exam - Neck Exam Neck Exam: Full ROM, Normal Inspection. absent: Lymphadenopathy - Respiratory Exam Respiratory Exam: Decreased Breath Sounds - Cardiovascular Exam Cardiovascular Exam: REGULAR RHYTHM, +S1, +S2 - GI/Abdominal Exam GI & Abdominal Exam: Soft, Diminished Bowel Sounds - Rectal Exam Rectal Exam: Deferred Assessment and Plan - Assessment and Plan (Free Text) Plan: foot x-ray reviewed labs reviewed vitals reviewed medications reviewed aspirin chewable tablet cardizem catapress crestor dextrose 50% inj digoxin folic acid glucagen diagnostic kit glucophage glutose 15 hexavitamin lantus librium mag-ox methadone novolin r pepcid piperacillin sod/tazobactam sod 3.375gm restoril seroquel vitamin b1 tab vitamin b12 1,000 mcg tab xarelto zestril
[2018-10-18] MEDS: (Lantus) Insulin Glargine, Recombinant SC SCH (21:52)
[2018-10-19] MEDS: (Novolin R) Insulin Human Regular 100 units/ml vial SC SCH ×4 (07:24→21:26)
[2018-10-19 09:19] LABS: BASO # 0.1 K/uL (0.0-0.2); BASO % 1.2 % (0.0-2.0); EOS # 0.2 K/uL (0.0-0.7); EOS % 3.1 % (0.0-4.0); HEMOGLOBIN 10.2 g/dL (12.0-18.0); LYMPH # 1.4 K/uL (1.0-4.3); LYMPH % 22.3 % (20.0-40.0); MEAN CELL VOLUME 88.9 fL (80.0-94.0); MEAN CORPUSCULAR HEMOGLOBIN 28.5 pg (27.0-31.0); MEAN PLATELET VOLUME 8.7 fL (7.2-11.7); MONO # 0.5 K/uL (0.0-0.8); MONO % 8.8 % (0.0-10.0); NEUT % 64.6 % (50.0-75.0); NRBC % 0.1 % (0.0-2.0); RBC 3.57 Mil/uL (4.40-5.90); RED CELL DISTRIBUTION WIDTH 21.8 % (11.5-14.5); WHITE BLOOD COUNT 6.2 K/uL (4.8-10.8)
[2018-10-19 10:30] LABS: ALB/GLOB RATIO 1.3 (1.0-2.1); ALBUMIN 3.7 g/dL (3.5-5.0); ALT/SGPT 9 U/L (21-72); AST/SGOT 20 U/L (17-59); BLOOD UREA NITROGEN 31 mg/dL (9-20); CALCIUM 9.4 mg/dl (8.6-10.4); GFR NON-AFRICAN AMERICAN 51
[2018-10-19] MEDS: Multiple Vitamins Tab PO SCH (10:33)
[2018-10-19] MEDS: Magnesium Oxide 400 mg Tab UD PO SCH (10:33)
--- NOTE | 2018-10-19 14:54 | CP.PCM.PN ---
Subjective - Date & Time of Evaluation Date of Evaluation: 10/19/18 - Subjective Subjective: delicia redman bedside also with her hsuabnd to visit pt Objective - Vital Signs/Intake and Output Vital Signs (last 24 hours): Temp Pulse Resp BP Pulse Ox 97.5 F L 77 20 120/75 96 10/19/18 07:35 10/19/18 07:35 10/19/18 07:35 10/19/18 07:35 10/19/18 07:35 Intake and Output: 10/19/18 10/19/18 06:59 18:59 Intake Total 580 Balance 580 - Medications Medications: Current Medications Aspirin (Aspirin Chewable) 81 mg PO DAILY [facility] Last Admin: 10/19/18 10:33 Dose: 81 mg Chlordiazepoxide (Librium) 25 mg PO Q6H PRN PRN Reason: Alcohol withdrawal sxs Last Admin: 10/19/18 14:25 Dose: 25 mg Clonidine HCl (Catapres) 0.1 mg PO TID [facility] Last Admin: 10/19/18 14:24 Dose: 0.1 mg Cyanocobalamin (Vitamin B12 1000 Mcg Tab) 1,000 mcg PO DAILY [facility] Last Admin: 10/19/18 10:33 Dose: 1,000 mcg Dextrose (Dextrose 50% Inj) 0 ml IV STAT PRN; Protocol PRN Reason: Hypoglycemia Protocol Dextrose (Glutose 15) 0 gm PO ONCE PRN; Protocol PRN Reason: Hypoglycemia Protocol Digoxin (Digoxin) 0.125 mg PO DAILY@1800 [facility] Last Admin: 10/18/18 17:24 Dose: 0.125 mg Diltiazem HCl (Cardizem) 30 mg PO Q8H [facility] Last Admin: 10/19/18 08:28 Dose: 30 mg Famotidine (Pepcid) 20 mg PO BID [facility] Last Admin: 10/19/18 10:33 Dose: 20 mg Folic Acid (Folic Acid) 1 mg PO DAILY [facility] Last Admin: 10/19/18 10:33 Dose: 1 mg Gabapentin (Neurontin) 800 mg PO BID [facility] Last Admin: 10/19/18 10:33 Dose: 800 mg Glucagon (Glucagen Diagnostic Kit) 0 mg IM STAT PRN; Protocol PRN Reason: Hypoglycemia Protocol Vancomycin HCl 1 gm/ Sodium (Chloride) 250 mls @ 166.7 mls/hr IVPB Q24H [facility]; Protocol Last Admin: 10/19/18 10:33 Dose: 166.7 mls/hr Piperacillin Sod/Tazobactam Sod (Zosyn 3.375 Gm Iv Premix) 3.375 gm in 50 mls @ 100 mls/hr IVPB Q8H [facility]; Protocol Insulin Glargine (Lantus) 50 unit SC HS [facility] Last Admin: 10/18/18 21:52 Dose: 50 units Insulin Human Regular (Novolin R) 0 unit SC ACHS [facility]; Protocol Last Admin: 10/19/18 12:30 Dose: Not Given Lisinopril (Zestril) 20 mg PO DAILY [facility] Last Admin: 10/19/18 10:35 Dose: 20 mg Metformin HCl (Glucophage) 1,000 mg PO BID [facility] Last Admin: 10/19/18 10:33 Dose: 1,000 mg Multivitamins (Hexavitamin) 1 tab PO DAILY [facility] Last Admin: 10/19/18 10:33 Dose: 1 tab Quetiapine Fumarate (Seroquel) 50 mg PO HS PRN PRN Reason: severe insomnia Rivaroxaban (Xarelto) 20 mg PO DAILY [facility] Last Admin: 10/19/18 10:33 Dose: 20 mg Rosuvastatin Calcium (Crestor) 20 mg PO HS [facility] Last Admin: 10/18/18 21:53 Dose: 20 mg Temazepam (Restoril) 30 mg PO HS [facility] Last Admin: 10/18/18 21:53 Dose: 30 mg Thiamine HCl (Vitamin B1 Tab) 50 mg PO DAILY [facility] Last Admin: 10/19/18 10:33 Dose: 50 mg - Labs Labs: 10/19/18 09:11 10/19/18 09:11 PT 13.8 SECONDS (9.7-12.2) H 10/13/18 06:18 INR 1.3 10/13/18 06:18 APTT 28 SECONDS (21-34) 10/13/18 06:18 - Constitutional Appears: Well - Head Exam Head Exam: ATRAUMATIC, NORMAL INSPECTION, NORMOCEPHALIC - Eye Exam Eye Exam: EOMI, Normal appearance, PERRL Pupil Exam: NORMAL ACCOMODATION, PERRL - ENT Exam ENT Exam: Mucous Membranes Moist, Normal Exam - Neck Exam Neck Exam: Full ROM, Normal Inspection. absent: Lymphadenopathy - Respiratory Exam Respiratory Exam: Decreased Breath Sounds - Cardiovascular Exam Cardiovascular Exam: REGULAR RHYTHM, +S1, +S2 - GI/Abdominal Exam GI & Abdominal Exam: Soft, Diminished Bowel Sounds - Rectal Exam Rectal Exam: Deferred Assessment and Plan - Assessment and Plan (Free Text) Plan: vancomycin hcl 1gm aspirin chewable cardizem catapress crestor dextrose 50% inj digoxin folic acid glucagen diagnostic kit glutose 15 hexavitamin lantus librium neurontin novolin R pepcid restoril seroquel vitamin b1 tab vitamin b12 1,000 mcg tab xarelto zestril zosyn 3.375 gm medications reviewed labs reviewed vitals reviewed
--- NOTE | 2018-10-19 16:05 | CP.PCM.PN ---
Subjective - Date & Time of Evaluation Date of Evaluation: 10/19/18 Time of Evaluation: 09:00 - Subjective Subjective: chart reviewed patient examined no new complaints orders signed Objective - Vital Signs/Intake and Output Vital Signs (last 24 hours): Temp Pulse Resp BP Pulse Ox 97.5 F L 77 20 120/75 96 10/19/18 07:35 10/19/18 07:35 10/19/18 07:35 10/19/18 07:35 10/19/18 07:35 Intake and Output: 10/19/18 10/19/18 06:59 18:59 Intake Total 580 Balance 580 - Medications Medications: Current Medications Aspirin (Aspirin Chewable) 81 mg PO DAILY [facility] Last Admin: 10/19/18 10:33 Dose: 81 mg Chlordiazepoxide (Librium) 25 mg PO Q6H PRN PRN Reason: Alcohol withdrawal sxs Last Admin: 10/19/18 14:25 Dose: 25 mg Clonidine HCl (Catapres) 0.1 mg PO TID [facility] Last Admin: 10/19/18 14:24 Dose: 0.1 mg Cyanocobalamin (Vitamin B12 1000 Mcg Tab) 1,000 mcg PO DAILY [facility] Last Admin: 10/19/18 10:33 Dose: 1,000 mcg Dextrose (Dextrose 50% Inj) 0 ml IV STAT PRN; Protocol PRN Reason: Hypoglycemia Protocol Dextrose (Glutose 15) 0 gm PO ONCE PRN; Protocol PRN Reason: Hypoglycemia Protocol Digoxin (Digoxin) 0.125 mg PO DAILY@1800 [facility] Last Admin: 10/18/18 17:24 Dose: 0.125 mg Diltiazem HCl (Cardizem) 30 mg PO Q8H [facility] Last Admin: 10/19/18 08:28 Dose: 30 mg Famotidine (Pepcid) 20 mg PO BID [facility] Last Admin: 10/19/18 10:33 Dose: 20 mg Folic Acid (Folic Acid) 1 mg PO DAILY [facility] Last Admin: 10/19/18 10:33 Dose: 1 mg Gabapentin (Neurontin) 800 mg PO BID [facility] Last Admin: 10/19/18 10:33 Dose: 800 mg Glucagon (Glucagen Diagnostic Kit) 0 mg IM STAT PRN; Protocol PRN Reason: Hypoglycemia Protocol Vancomycin HCl 1 gm/ Sodium (Chloride) 250 mls @ 166.7 mls/hr IVPB Q24H [facility]; Protocol Last Admin: 10/19/18 10:33 Dose: 166.7 mls/hr Piperacillin Sod/Tazobactam Sod (Zosyn 3.375 Gm Iv Premix) 3.375 gm in 50 mls @ 100 mls/hr IVPB Q8H [facility]; Protocol Insulin Glargine (Lantus) 50 unit SC HS [facility] Last Admin: 10/18/18 21:52 Dose: 50 units Insulin Human Regular (Novolin R) 0 unit SC ACHS [facility]; Protocol Last Admin: 10/19/18 12:30 Dose: Not Given Lisinopril (Zestril) 20 mg PO DAILY [facility] Last Admin: 10/19/18 10:35 Dose: 20 mg Metformin HCl (Glucophage) 1,000 mg PO BID [facility] Last Admin: 10/19/18 10:33 Dose: 1,000 mg Multivitamins (Hexavitamin) 1 tab PO DAILY [facility] Last Admin: 10/19/18 10:33 Dose: 1 tab Quetiapine Fumarate (Seroquel) 50 mg PO HS PRN PRN Reason: severe insomnia Rivaroxaban (Xarelto) 20 mg PO DAILY [facility] Last Admin: 10/19/18 10:33 Dose: 20 mg Rosuvastatin Calcium (Crestor) 20 mg PO HS [facility] Last Admin: 10/18/18 21:53 Dose: 20 mg Temazepam (Restoril) 30 mg PO HS [facility] Last Admin: 10/18/18 21:53 Dose: 30 mg Thiamine HCl (Vitamin B1 Tab) 50 mg PO DAILY [facility] Last Admin: 10/19/18 10:33 Dose: 50 mg - Labs Labs: 10/19/18 09:11 10/19/18 09:11 PT 13.8 SECONDS (9.7-12.2) H 10/13/18 06:18 INR 1.3 10/13/18 06:18 APTT 28 SECONDS (21-34) 10/13/18 06:18 - Constitutional Appears: Non-toxic, No Acute Distress, Chronically Ill - Head Exam Head Exam: ATRAUMATIC, NORMAL INSPECTION, NORMOCEPHALIC - Eye Exam Eye Exam: EOMI, Normal appearance, PERRL Pupil Exam: NORMAL ACCOMODATION, PERRL - ENT Exam ENT Exam: Mucous Membranes Moist, Normal Exam - Neck Exam Neck Exam: Full ROM, Normal Inspection. absent: Lymphadenopathy - Respiratory Exam Respiratory Exam: Decreased Breath Sounds, Clear to Ausculation Bilateral, Prolonged Expiratory Phase, NORMAL BREATHING PATTERN - Cardiovascular Exam Cardiovascular Exam: REGULAR RHYTHM, +S1, +S2. absent: Murmur - GI/Abdominal Exam GI & Abdominal Exam: Soft, Normal Bowel Sounds. absent: Tenderness - Rectal Exam Rectal Exam: Deferred - Exam Exam: NORMAL INSPECTION Bimanual exam: NORMAL BIMANUAL EXAM - Extremities Exam Extremities Exam: Full ROM, Normal Capillary Refill, Normal Inspection. absent: Joint Swelling, Pedal Edema - Back Exam Back Exam: NORMAL INSPECTION - Neurological Exam Neurological Exam: Alert, Awake, CN II-XII Intact, Normal Gait, Oriented x3 - Psychiatric Exam Psychiatric exam: Normal Affect, Normal Mood - Skin Skin Exam: Dry Additional comments: chronic foot ulcers
[2018-10-19] MEDS: Piperacill/Tazo 3.375gm in Dex 3.375 GM/50 ML BAG IVPB SCH (16:15)
[2018-10-19] MEDS: Digoxin 125 mcg (0.125 mg) Tab PO SCH (17:17)
[2018-10-19] MEDS: (Lantus) Insulin Glargine, Recombinant SC SCH (21:26)
[2018-10-20] MEDS: Piperacill/Tazo 3.375gm in Dex 3.375 GM/50 ML BAG IVPB SCH ×3 (00:41→16:22)
[2018-10-20] MEDS: (Novolin R) Insulin Human Regular 100 units/ml vial SC SCH ×4 (07:43→22:47)
--- NOTE | 2018-10-20 08:07 | CP.PCM.PN ---
<Sis Green - Last Filed: 10/20/18 09:03> Subjective - Date & Time of Evaluation Date of Evaluation: 10/20/18 Time of Evaluation: 08:06 - Subjective Subjective: Sis Green, PGY-1, Cardiology Progress Note for Dr. Foster Patient seen and evaluated at bedside. Patient had no acute overnight events. Patient reports weakness and dizziness today. Patient has multiple taped wounds that he is unsure of where they came from Objective - Vital Signs/Intake and Output Vital Signs (last 24 hours): Temp Pulse Resp BP Pulse Ox 98.4 F 62 20 111/72 97 10/20/18 01:00 10/20/18 01:00 10/20/18 01:00 10/20/18 01:00 10/20/18 01:00 Intake and Output: 10/20/18 10/20/18 06:59 18:59 Intake Total 700 Output Total 400 Balance 300 - Medications Medications: Current Medications Aspirin (Aspirin Chewable) 81 mg PO DAILY REPLACED BY [facility] Last Admin: 10/19/18 10:33 Dose: 81 mg Clonidine HCl (Catapres) 0.1 mg PO TID REPLACED BY [facility] Last Admin: 10/19/18 17:18 Dose: 0.1 mg Cyanocobalamin (Vitamin B12 1000 Mcg Tab) 1,000 mcg PO DAILY REPLACED BY [facility] Last Admin: 10/19/18 10:33 Dose: 1,000 mcg Dextrose (Dextrose 50% Inj) 0 ml IV STAT PRN; Protocol PRN Reason: Hypoglycemia Protocol Dextrose (Glutose 15) 0 gm PO ONCE PRN; Protocol PRN Reason: Hypoglycemia Protocol Digoxin (Digoxin) 0.125 mg PO DAILY@1800 REPLACED BY [facility] Last Admin: 10/19/18 17:17 Dose: 0.125 mg Diltiazem HCl (Cardizem) 30 mg PO Q8H REPLACED BY [facility] Last Admin: 10/20/18 00:27 Dose: 30 mg Famotidine (Pepcid) 20 mg PO BID REPLACED BY [facility] Last Admin: 10/19/18 17:17 Dose: 20 mg Folic Acid (Folic Acid) 1 mg PO DAILY REPL[facility]ED BY [facility] Last Admin: 10/19/18 10:33 Dose: 1 mg Gabapentin (Neurontin) 800 mg PO BID REPLACED BY [facility] Last Admin: 10/19/18 17:17 Dose: 800 mg Glucagon (Glucagen Diagnostic Kit) 0 mg IM STAT PRN; Protocol PRN Reason: Hypoglycemia Protocol Vancomycin HCl 1 gm/ Sodium (Chloride) 250 mls @ 166.7 mls/hr IVPB Q24H REPLACED BY [facility]; Protocol Last Admin: 10/19/18 10:33 Dose: 166.7 mls/hr Piperacillin Sod/Tazobactam Sod (Zosyn 3.375 Gm Iv Premix) 3.375 gm in 50 mls @ 100 mls/hr IVPB Q8H REPLACED BY [facility]; Protocol Last Admin: 10/20/18 00:41 Dose: 100 mls/hr Insulin Glargine (Lantus) 50 unit SC HS REPLACED BY [facility] Last Admin: 10/19/18 21:26 Dose: 50 units Insulin Human Regular (Novolin R) 0 unit SC ACHS REPLACED BY [facility]; Protocol Last Admin: 10/20/18 07:43 Dose: Not Given Lisinopril (Zestril) 20 mg PO DAILY REPLACED BY [facility] Last Admin: 10/19/18 10:35 Dose: 20 mg Metformin HCl (Glucophage) 1,000 mg PO BID REPLACED BY [facility] Last Admin: 10/19/18 17:16 Dose: 1,000 mg Multivitamins (Hexavitamin) 1 tab PO DAILY REPLACED BY [facility] Last Admin: 10/19/18 10:33 Dose: 1 tab Quetiapine Fumarate (Seroquel) 50 mg PO HS PRN PRN Reason: severe insomnia Last Admin: 10/20/18 03:20 Dose: 50 mg Rivaroxaban (Xarelto) 20 mg PO DAILY REPLACED BY [facility] Last Admin: 10/19/18 10:33 Dose: 20 mg Rosuvastatin Calcium (Crestor) 20 mg PO HS REPLACED BY [facility] Last Admin: 10/19/18 21:26 Dose: 20 mg Temazepam (Restoril) 30 mg PO HS REPLACED BY [facility] Last Admin: 10/19/18 21:25 Dose: 30 mg Thiamine HCl (Vitamin B1 Tab) 50 mg PO DAILY REPLACED BY [facility] Last Admin: 10/19/18 10:33 Dose: 50 mg - Labs Labs: 10/19/18 09:11 10/19/18 09:11 PT 13.8 SECONDS (9.7-12.2) H 10/13/18 06:18 INR 1.3 10/13/18 06:18 APTT 28 SECONDS (21-34) 10/13/18 06:18 - Constitutional Appears: Well, Non-toxic, No Acute Distress - Head Exam Head Exam: ATRAUMATIC, NORMAL INSPECTION, NORMOCEPHALIC - Eye Exam Eye Exam: EOMI, PERRL - ENT Exam ENT Exam: Mucous Membranes Moist - Respiratory Exam Respiratory Exam: Clear to Auscultation Bilateral, NORMAL BREATHING PATTERN - Cardiovascular Exam Cardiovascular Exam: Tachycardia, Irregular Rhythm, +S1, +S2 - GI/Abdominal Exam GI & Abdominal Exam: Normal Bowel Sounds, Soft. absent: Tenderness - Extremities Exam Extremities exam: Positive for: full ROM, normal inspection - Neurological Exam Neurological exam: Alert, CN II-XII Intact, Oriented x3 - Skin Skin Exam: Dry, Intact Assessment and Plan (1) Dizziness Assessment & Plan: Head CT: no acute ICH but 1 discrete right basal ganglia Orthostatic vitals: BP was 113/53 while lying, 125/61 while sitting, and 119/70 while standing thus unremarkable Tropx4: negative BNP: 2150 EKG: atrial fibrillation right RVR with HR: 113 Stress test to evaluate for ischemia tomorrow. Keep NPO past midnight Continue with aspirin, clonidine, digoxin, cardizem, lisinopril Status: Acute (2) Hyperlipemia Assessment & Plan: Continue with rosuvastatin Status: Acute (3) Atrial fibrillation with rapid ventricular response Assessment & Plan: EKG: atrial fibrillation right RVR with HR: 113 Continue with xarelto 20 mg daily and cardizem 30 mg Q8 Status: Acute (4) Diastolic CHF Assessment & Plan: Echocardiogram shows mild left ventricular hypertrophy BNP: 2150 Tropx4: negative Continue with aspirin, digoxin, cardizem, lisinopril Status: Acute (5) Hypertension Assessment & Plan: Continue with clonidine, digoxin, cardizem, lisinopril Status: Acute (6) Diabetes mellitus Assessment & Plan: HgbA1c: 6.1 Continue with metformin Status: Acute <CristianYayo - Last Filed: 10/29/18 19:22> Objective - Vital Signs/Intake and Output Vital Signs (last 24 hours): Temp Pulse Resp BP Pulse Ox 97.4 F L 76 20 125/74 97 10/23/18 15:00 10/23/18 15:00 10/23/18 15:00 10/23/18 17:37 10/23/18 15:00 - Labs Labs: 10/21/18 17:03 10/21/18 17:03 PT 13.8 SECONDS (9.7-12.2) H 10/13/18 06:18 INR 1.3 10/13/18 06:18 APTT 28 SECONDS (21-34) 10/13/18 06:18 Assessment and Plan (1) Atrial fibrillation with rapid ventricular response Status: Acute (2) Dizziness Status: Acute (3) Hyperglycemia Status: Acute (4) Hyperlipemia Status: Acute (5) Syncope Status: Acute (6) Anemia Status: Acute (7) Atrial fibrillation Status: Acute Attending/Attestation - Attestation I have personally seen and examined this patient.: Yes I have fully participated in the care of the patient.: Yes I have reviewed all pertinent clinical information, including history, physical exam and plan: Yes
[2018-10-20] MEDS: Multiple Vitamins Tab PO SCH (09:23)
--- NOTE | 2018-10-20 16:32 | CP.PCM.PN ---
Subjective - Date & Time of Evaluation Date of Evaluation: 10/20/18 Time of Evaluation: 10:14 - Subjective Subjective: dizzyness present weakness present no nauea rovomitting no fever Objective - Vital Signs/Intake and Output Vital Signs (last 24 hours): Temp Pulse Resp BP Pulse Ox 97.7 F 69 20 106/71 96 10/20/18 16:00 10/20/18 16:00 10/20/18 16:00 10/20/18 16:00 10/20/18 16:00 Intake and Output: 10/20/18 10/20/18 06:59 18:59 Intake Total 700 Output Total 400 Balance 300 - Medications Medications: Current Medications Aspirin (Aspirin Chewable) 81 mg PO DAILY [facility] Last Admin: 10/20/18 09:24 Dose: 81 mg Clonidine HCl (Catapres) 0.1 mg PO TID [facility] Last Admin: 10/20/18 14:04 Dose: 0.1 mg Cyanocobalamin (Vitamin B12 1000 Mcg Tab) 1,000 mcg PO DAILY [facility] Last Admin: 10/20/18 09:24 Dose: 1,000 mcg Dextrose (Dextrose 50% Inj) 0 ml IV STAT PRN; Protocol PRN Reason: Hypoglycemia Protocol Dextrose (Glutose 15) 0 gm PO ONCE PRN; Protocol PRN Reason: Hypoglycemia Protocol Digoxin (Digoxin) 0.125 mg PO DAILY@1800 [facility] Last Admin: 10/19/18 17:17 Dose: 0.125 mg Diltiazem HCl (Cardizem) 30 mg PO Q8H [facility] Last Admin: 10/20/18 09:23 Dose: 30 mg Famotidine (Pepcid) 20 mg PO BID [facility] Last Admin: 10/20/18 09:23 Dose: 20 mg Folic Acid (Folic Acid) 1 mg PO DAILY [facility] Last Admin: 10/20/18 09:23 Dose: 1 mg Gabapentin (Neurontin) 800 mg PO BID [facility] Last Admin: 10/20/18 09:23 Dose: 800 mg Glucagon (Glucagen Diagnostic Kit) 0 mg IM STAT PRN; Protocol PRN Reason: Hypoglycemia Protocol Vancomycin HCl 1 gm/ Sodium (Chloride) 250 mls @ 166.7 mls/hr IVPB Q24H [facility]; Protocol Last Admin: 10/20/18 10:28 Dose: 166.7 mls/hr Piperacillin Sod/Tazobactam Sod (Zosyn 3.375 Gm Iv Premix) 3.375 gm in 50 mls @ 100 mls/hr IVPB Q8H [facility]; Protocol Last Admin: 10/20/18 09:23 Dose: 100 mls/hr Insulin Glargine (Lantus) 50 unit SC [facility] Last Admin: 10/19/18 21:26 Dose: 50 units Insulin Human Regular (Novolin R) 0 unit SC [facility]; Protocol Last Admin: 10/20/18 11:22 Dose: Not Given Lisinopril (Zestril) 20 mg PO DAILY [facility] Last Admin: 10/20/18 09:26 Dose: 20 mg Metformin HCl (Glucophage) 1,000 mg PO BID [facility] Last Admin: 10/20/18 09:24 Dose: 1,000 mg Multivitamins (Hexavitamin) 1 tab PO DAILY [facility] Last Admin: 10/20/18 09:23 Dose: 1 tab Quetiapine Fumarate (Seroquel) 50 mg PO HS PRN PRN Reason: severe insomnia Last Admin: 10/20/18 03:20 Dose: 50 mg Rivaroxaban (Xarelto) 20 mg PO DAILY [facility] Last Admin: 10/20/18 09:23 Dose: 20 mg Rosuvastatin Calcium (Crestor) 20 mg PO [facility] Last Admin: 10/19/18 21:26 Dose: 20 mg Temazepam (Restoril) 30 mg PO [facility] Last Admin: 10/19/18 21:25 Dose: 30 mg Thiamine HCl (Vitamin B1 Tab) 50 mg PO DAILY [facility] Last Admin: 10/20/18 09:23 Dose: 50 mg - Labs Labs: 10/19/18 09:11 10/19/18 09:11 PT 13.8 SECONDS (9.7-12.2) H 10/13/18 06:18 INR 1.3 10/13/18 06:18 APTT 28 SECONDS (21-34) 10/13/18 06:18 - Constitutional Appears: Well - Head Exam Head Exam: ATRAUMATIC, NORMAL INSPECTION, NORMOCEPHALIC - Eye Exam Eye Exam: EOMI, Normal appearance, PERRL Pupil Exam: NORMAL ACCOMODATION, PERRL - ENT Exam ENT Exam: Mucous Membranes Moist, Normal Exam - Neck Exam Neck Exam: Full ROM, Normal Inspection. absent: Lymphadenopathy - Respiratory Exam Respiratory Exam: Decreased Breath Sounds - Cardiovascular Exam Cardiovascular Exam: REGULAR RHYTHM, +S1, +S2 - GI/Abdominal Exam GI & Abdominal Exam: Soft, Diminished Bowel Sounds - Rectal Exam Rectal Exam: Deferred - Neurological Exam Neurological Exam: Oriented x3 Assessment and Plan - Assessment and Plan (Free Text) Plan: medications, labs and vitals reviewed Aspirin chewable Cardizem Catapres Crestor Dextrose Digoxin Folic acid glucagen Diagnostic kit Glutose 15 Vitamin Lantus Neurontin Novolin R Pepcid Restoril Seroquel Vancomycin Vitamin D 1 tablet Vitamin B12 Xarelto Zestril Zosyn s/p cardio for stress tset tomorrow am dressing seen pt is in multipodous shoes pt is out of bed cardio podiatry vasc surg followup
[2018-10-20] MEDS: Digoxin 125 mcg (0.125 mg) Tab PO SCH (18:21)
--- NOTE | 2018-10-20 18:32 | CP.PCM.PN ---
Subjective - Date & Time of Evaluation Date of Evaluation: 10/20/18 Time of Evaluation: 18:27 - Subjective Subjective: Podiatry Progress Note for Dr. Daly 68M seen and evaluated at bedside for b/l heel ulcerations. Patient is AAO x 3 and NAD, resting comfortably in bed. Denies any acute overnight events or new pedal complaints. Denies any pain to either foot. States that he has been wearing his multipodus boots in bed at all times. Denies any recent N/V/F/C/CP/SOB/D Objective - Vital Signs/Intake and Output Vital Signs (last 24 hours): Temp Pulse Resp BP Pulse Ox 97.7 F 69 20 106/71 96 10/20/18 16:00 10/20/18 16:00 10/20/18 16:00 10/20/18 16:00 10/20/18 16:00 Intake and Output: 10/20/18 10/20/18 06:59 18:59 Intake Total 700 Output Total 400 Balance 300 - Medications Medications: Current Medications Aspirin (Aspirin Chewable) 81 mg PO DAILY [facility] Last Admin: 10/20/18 09:24 Dose: 81 mg Clonidine HCl (Catapres) 0.1 mg PO TID [facility] Last Admin: 10/20/18 18:21 Dose: 0.1 mg Cyanocobalamin (Vitamin B12 1000 Mcg Tab) 1,000 mcg PO DAILY [facility] Last Admin: 10/20/18 09:24 Dose: 1,000 mcg Dextrose (Dextrose 50% Inj) 0 ml IV STAT PRN; Protocol PRN Reason: Hypoglycemia Protocol Dextrose (Glutose 15) 0 gm PO ONCE PRN; Protocol PRN Reason: Hypoglycemia Protocol Digoxin (Digoxin) 0.125 mg PO DAILY@1800 [facility] Last Admin: 10/20/18 18:21 Dose: 0.125 mg Diltiazem HCl (Cardizem) 30 mg PO Q8H [facility] Last Admin: 10/20/18 17:00 Dose: 30 mg Famotidine (Pepcid) 20 mg PO BID [facility] Last Admin: 10/20/18 18:22 Dose: 20 mg Folic Acid (Folic Acid) 1 mg PO DAILY [facility] Last Admin: 10/20/18 09:23 Dose: 1 mg Gabapentin (Neurontin) 800 mg PO BID [facility] Last Admin: 10/20/18 18:21 Dose: 800 mg Glucagon (Glucagen Diagnostic Kit) 0 mg IM STAT PRN; Protocol PRN Reason: Hypoglycemia Protocol Vancomycin HCl 1 gm/ Sodium (Chloride) 250 mls @ 166.7 mls/hr IVPB Q24H [facility]; Protocol Last Admin: 10/20/18 10:28 Dose: 166.7 mls/hr Piperacillin Sod/Tazobactam Sod (Zosyn 3.375 Gm Iv Premix) 3.375 gm in 50 mls @ 100 mls/hr IVPB Q8H [facility]; Protocol Last Admin: 10/20/18 16:22 Dose: 100 mls/hr Insulin Glargine (Lantus) 50 unit SC HS [facility] Last Admin: 10/19/18 21:26 Dose: 50 units Insulin Human Regular (Novolin R) 0 unit SC ACHS [facility]; Protocol Last Admin: 10/20/18 18:12 Dose: Not Given Lisinopril (Zestril) 20 mg PO DAILY [facility] Last Admin: 10/20/18 09:26 Dose: 20 mg Metformin HCl (Glucophage) 1,000 mg PO BID [facility] Last Admin: 10/20/18 18:22 Dose: 1,000 mg Multivitamins (Hexavitamin) 1 tab PO DAILY [facility] Last Admin: 10/20/18 09:23 Dose: 1 tab Quetiapine Fumarate (Seroquel) 50 mg PO HS PRN PRN Reason: severe insomnia Last Admin: 10/20/18 03:20 Dose: 50 mg Rivaroxaban (Xarelto) 20 mg PO DAILY [facility] Last Admin: 10/20/18 09:23 Dose: 20 mg Rosuvastatin Calcium (Crestor) 20 mg PO HS [facility] Last Admin: 10/19/18 21:26 Dose: 20 mg Temazepam (Restoril) 30 mg PO HS [facility] Last Admin: 10/19/18 21:25 Dose: 30 mg Thiamine HCl (Vitamin B1 Tab) 50 mg PO DAILY [facility] Last Admin: 10/20/18 09:23 Dose: 50 mg - Labs Labs: 10/19/18 09:11 10/19/18 09:11 PT 13.8 SECONDS (9.7-12.2) H 10/13/18 06:18 INR 1.3 10/13/18 06:18 APTT 28 SECONDS (21-34) 10/13/18 06:18 - Constitutional Appears: Well, Non-toxic, No Acute Distress - Extremities Exam Additional comments: LE focused exam: Vasc: DP/PT pulses palpable 2/4 b/l. Skin temperature warm to warm from proximal to distal. CFT < 3 seconds to all digits. No edema noted b/l Neuro: Epicritic and protective sensation grossly diminished b/l Derm: Right heel ulceration measuring approximately 1 cm in diameter x .1 cm secondary to DM and pressure, wound base is mixture of fibrotic and granular tissue and multiple superfical ulcerations on dorsum of digits left and right foot. There is a lesion, developing pressure ulcer/preulcerative lesion, on left heel measuring approximately 0.5 in diameter and darken discoloration. No erythema, no odor, no purulence, drainage or fluctance. No clinical signs of infection MSK: Pain with palpation of ulceration sites. No gross deformities noted - Neurological Exam Neurological Exam: Alert, Awake, Oriented x3 - Psychiatric Exam Psychiatric exam: Normal Affect, Normal Mood Assessment and Plan - Assessment and Plan (Free Text) Assessment: 68M seen and evaluated at bedside for b/l heel ulcerations Plan: Patient seen and evaluated Plan discussed with Dr. Daly Afebrile, absent leukocytosis Continue abx per ID Wound cx left foot: Staphylococcus Haemolyticus Wound cx right foot: No growth Foot xray: Subacute healing mildly displaced fracture in the right lateral malleolus with presumable surrounding callus. Dedicated ankle radiographs are recommended for complete evaluation the fracture. No acute fracture, dislocation or destructive bony lesion in the left foot. Wounds dressed with hydrogen peroxide, DSD No plan for surgical intervention at this time Podiatry will continue to follow while patient in house
[2018-10-20] MEDS: (Lantus) Insulin Glargine, Recombinant SC SCH (22:47)
[2018-10-21] MEDS: Piperacill/Tazo 3.375gm in Dex 3.375 GM/50 ML BAG IVPB SCH ×3 (00:01→16:34)
[2018-10-21] MEDS: (Novolin R) Insulin Human Regular 100 units/ml vial SC SCH ×4 (07:25→22:22)
--- NOTE | 2018-10-21 07:48 | CP.PCM.PN ---
<Sis Green - Last Filed: 10/21/18 17:01> Subjective - Date & Time of Evaluation Date of Evaluation: 10/21/18 Time of Evaluation: 07:44 - Subjective Subjective: Sis Green, PGY-1, Cardiology Progress Note for Dr. Foster Patient seen and evaluated at bedside. Patient had no acute overnight events. Patient reports weakness and dizziness today. Objective - Vital Signs/Intake and Output Vital Signs (last 24 hours): Temp Pulse Resp BP Pulse Ox 98.0 F 73 20 122/81 97 10/20/18 23:40 10/20/18 23:40 10/20/18 23:40 10/20/18 23:40 10/20/18 23:40 - Medications Medications: Current Medications Aspirin (Aspirin Chewable) 81 mg PO DAILY [facility] Last Admin: 10/20/18 09:24 Dose: 81 mg Clonidine HCl (Catapres) 0.1 mg PO TID [facility] Last Admin: 10/20/18 18:21 Dose: 0.1 mg Cyanocobalamin (Vitamin B12 1000 Mcg Tab) 1,000 mcg PO DAILY [facility] Last Admin: 10/20/18 09:24 Dose: 1,000 mcg Dextrose (Dextrose 50% Inj) 0 ml IV STAT PRN; Protocol PRN Reason: Hypoglycemia Protocol Dextrose (Glutose 15) 0 gm PO ONCE PRN; Protocol PRN Reason: Hypoglycemia Protocol Digoxin (Digoxin) 0.125 mg PO DAILY@1800 [facility] Last Admin: 10/20/18 18:21 Dose: 0.125 mg Diltiazem HCl (Cardizem) 30 mg PO Q8H [facility] Last Admin: 10/21/18 00:01 Dose: 30 mg Famotidine (Pepcid) 20 mg PO BID [facility] Last Admin: 10/20/18 18:22 Dose: 20 mg Folic Acid (Folic Acid) 1 mg PO DAILY [facility] Last Admin: 10/20/18 09:23 Dose: 1 mg Gabapentin (Neurontin) 800 mg PO BID [facility] Last Admin: 10/20/18 18:21 Dose: 800 mg Glucagon (Glucagen Diagnostic Kit) 0 mg IM STAT PRN; Protocol PRN Reason: Hypoglycemia Protocol Vancomycin HCl 1 gm/ Sodium (Chloride) 250 mls @ 166.7 mls/hr IVPB Q24H [facility]; Protocol Last Admin: 10/20/18 10:28 Dose: 166.7 mls/hr Piperacillin Sod/Tazobactam Sod (Zosyn 3.375 Gm Iv Premix) 3.375 gm in 50 mls @ 100 mls/hr IVPB Q8H [facility]; Protocol Last Admin: 10/21/18 00:01 Dose: 100 mls/hr Insulin Glargine (Lantus) 50 unit SC [facility] Last Admin: 10/20/18 22:47 Dose: Not Given Insulin Human Regular (Novolin R) 0 unit SC [facility]; Protocol Last Admin: 10/21/18 07:25 Dose: Not Given Lisinopril (Zestril) 20 mg PO DAILY [facility] Last Admin: 10/20/18 09:26 Dose: 20 mg Metformin HCl (Glucophage) 1,000 mg PO BID [facility] Last Admin: 10/20/18 18:22 Dose: 1,000 mg Multivitamins (Hexavitamin) 1 tab PO DAILY [facility] Last Admin: 10/20/18 09:23 Dose: 1 tab Quetiapine Fumarate (Seroquel) 50 mg PO HS PRN PRN Reason: severe insomnia Last Admin: 10/20/18 03:20 Dose: 50 mg Rivaroxaban (Xarelto) 20 mg PO DAILY [facility] Last Admin: 10/20/18 09:23 Dose: 20 mg Rosuvastatin Calcium (Crestor) 20 mg PO HS [facility] Last Admin: 10/20/18 21:54 Dose: 20 mg Temazepam (Restoril) 30 mg PO HS [facility] Last Admin: 10/20/18 21:54 Dose: 30 mg Thiamine HCl (Vitamin B1 Tab) 50 mg PO DAILY [facility] Last Admin: 10/20/18 09:23 Dose: 50 mg - Labs Labs: 10/19/18 09:11 10/19/18 09:11 PT 13.8 SECONDS (9.7-12.2) H 10/13/18 06:18 INR 1.3 10/13/18 06:18 APTT 28 SECONDS (21-34) 10/13/18 06:18 - Constitutional Appears: Well, Non-toxic, No Acute Distress - Head Exam Head Exam: ATRAUMATIC, NORMAL INSPECTION, NORMOCEPHALIC - Eye Exam Eye Exam: EOMI, PERRL - ENT Exam ENT Exam: Mucous Membranes Moist - Respiratory Exam Respiratory Exam: Clear to Auscultation Bilateral, NORMAL BREATHING PATTERN - Cardiovascular Exam Cardiovascular Exam: Tachycardia, Irregular Rhythm, +S1, +S2 - GI/Abdominal Exam GI & Abdominal Exam: Normal Bowel Sounds, Soft. absent: Tenderness - Extremities Exam Extremities exam: Positive for: full ROM, normal inspection - Neurological Exam Neurological exam: Alert, CN II-XII Intact, Oriented x3 - Skin Skin Exam: Dry, Intact Assessment and Plan (1) Dizziness Assessment & Plan: Head CT: no acute ICH but 1 discrete right basal ganglia Orthostatic vitals: BP was 113/53 while lying, 125/61 while sitting, and 119/70 while standing thus unremarkable Tropx4: negative BNP: 2150 EKG: atrial fibrillation right RVR with HR: 113 Stress test to evaluate for ischemia today. Continue with aspirin, clonidine, digoxin, cardizem, lisinopril Status: Acute (2) Hyperlipemia Assessment & Plan: Continue with rosuvastatin Status: Acute (3) Atrial fibrillation with rapid ventricular response Assessment & Plan: EKG: atrial fibrillation right RVR with HR: 113 Continue with xarelto 20 mg daily and cardizem 30 mg Q8 Status: Acute (4) Diastolic CHF Assessment & Plan: Echocardiogram shows mild left ventricular hypertrophy BNP: 2150 Tropx4: negative Continue with aspirin, digoxin, cardizem, lisinopril Status: Acute (5) Hypertension Assessment & Plan: Continue with clonidine, digoxin, cardizem, lisinopril Status: Acute (6) Diabetes mellitus Assessment & Plan: HgbA1c: 6.1 Continue with metformin Status: Acute <Yayo Foster - Last Filed: 10/29/18 19:22> Objective - Vital Signs/Intake and Output Vital Signs (last 24 hours): Temp Pulse Resp BP Pulse Ox 97.4 F L 76 20 125/74 97 10/23/18 15:00 10/23/18 15:00 10/23/18 15:00 10/23/18 17:37 10/23/18 15:00 - Labs Labs: 10/21/18 17:03 10/21/18 17:03 PT 13.8 SECONDS (9.7-12.2) H 10/13/18 06:18 INR 1.3 10/13/18 06:18 APTT 28 SECONDS (21-34) 10/13/18 06:18 Assessment and Plan (1) Atrial fibrillation with rapid ventricular response Status: Acute (2) Dizziness Status: Acute (3) Hyperglycemia Status: Acute (4) Hyperlipemia Status: Acute (5) Syncope Status: Acute (6) Anemia Status: Acute (7) Atrial fibrillation Status: Acute Attending/Attestation - Attestation I have personally seen and examined this patient.: Yes I have fully participated in the care of the patient.: Yes I have reviewed all pertinent clinical information, including history, physical exam and plan: Yes
[2018-10-21] MEDS: Multiple Vitamins Tab PO SCH ×2 (09:43→11:03)
[2018-10-21] MEDS ORDERED: Caffeine Citrated **INJ** 20 MG/ML IV ONE (10:21)
[2018-10-21 17:12] LABS: BASO % 0.8 % (0.0-2.0); EOS # 0.1 K/uL (0.0-0.7); EOS % 2.1 % (0.0-4.0); LYMPH # 0.6 K/uL (1.0-4.3); LYMPH % 11.1 % (20.0-40.0); MEAN CELL VOLUME 87.8 fL (80.0-94.0); MEAN CORPUSCULAR HEMOGLOBIN 28.1 pg (27.0-31.0); MEAN PLATELET VOLUME 8.3 fL (7.2-11.7); MONO # 0.5 K/uL (0.0-0.8); MONO % 8.1 % (0.0-10.0); NEUT # 4.5 K/uL (1.8-7.0); NEUT % 77.9 % (50.0-75.0); NRBC % 0.3 % (0.0-2.0); RBC 3.89 Mil/uL (4.40-5.90); RED CELL DISTRIBUTION WIDTH 21.7 % (11.5-14.5); WHITE BLOOD COUNT 5.8 K/uL (4.8-10.8)
--- NOTE | 2018-10-21 17:31 | CP.PCM.PN ---
Subjective - Date & Time of Evaluation Date of Evaluation: 10/21/18 Time of Evaluation: 17:31 - Subjective Subjective: PATIENT SEEN AND EXAMINED AT THE BEDSIDE DISCHARGE ORDER CANCEL PATIENT WILL REQUIRE A LUPILL[employer] PER [employer] Objective - Vital Signs/Intake and Output Vital Signs (last 24 hours): Temp Pulse Resp BP Pulse Ox 97.6 F 96 H 22 146/84 96 10/21/18 16:00 10/21/18 16:00 10/21/18 16:00 10/21/18 16:00 10/21/18 16:00 - Medications Medications: Current Medications Aspirin (Aspirin Chewable) 81 mg PO DAILY [facility] Last Admin: 10/21/18 11:03 Dose: 81 mg Clonidine HCl (Catapres) 0.1 mg PO TID [facility] Last Admin: 10/21/18 09:43 Dose: Not Given Cyanocobalamin (Vitamin B12 1000 Mcg Tab) 1,000 mcg PO DAILY [facility] Last Admin: 10/21/18 09:44 Dose: Not Given Dextrose (Dextrose 50% Inj) 0 ml IV STAT PRN; Protocol PRN Reason: Hypoglycemia Protocol Dextrose (Glutose 15) 0 gm PO ONCE PRN; Protocol PRN Reason: Hypoglycemia Protocol Digoxin (Digoxin) 0.125 mg PO DAILY@1800 [facility] Last Admin: 10/20/18 18:21 Dose: 0.125 mg Diltiazem HCl (Cardizem) 30 mg PO Q8H [facility] Last Admin: 10/21/18 08:12 Dose: 30 mg Famotidine (Pepcid) 20 mg PO BID [facility] Last Admin: 10/21/18 11:03 Dose: 20 mg Folic Acid (Folic Acid) 1 mg PO DAILY [facility] Last Admin: 10/21/18 11:03 Dose: 1 mg Gabapentin (Neurontin) 800 mg PO BID [facility] Last Admin: 10/21/18 11:03 Dose: 800 mg Glucagon (Glucagen Diagnostic Kit) 0 mg IM STAT PRN; Protocol PRN Reason: Hypoglycemia Protocol Vancomycin HCl 1 gm/ Sodium (Chloride) 250 mls @ 166.7 mls/hr IVPB Q24H [facility]; Protocol Last Admin: 10/21/18 11:02 Dose: 166.7 mls/hr Piperacillin Sod/Tazobactam Sod (Zosyn 3.375 Gm Iv Premix) 3.375 gm in 50 mls @ 100 mls/hr IVPB Q8H [facility]; Protocol Last Admin: 10/21/18 08:12 Dose: 100 mls/hr Insulin Glargine (Lantus) 50 unit SC [facility] Last Admin: 10/20/18 22:47 Dose: Not Given Insulin Human Regular (Novolin R) 0 unit SC [facility]; Protocol Last Admin: 10/21/18 11:44 Dose: Not Given Lisinopril (Zestril) 20 mg PO DAILY [facility] Last Admin: 10/21/18 11:03 Dose: 20 mg Metformin HCl (Glucophage) 1,000 mg PO BID [facility] Last Admin: 10/21/18 09:43 Dose: Not Given Multivitamins (Hexavitamin) 1 tab PO DAILY [facility] Last Admin: 10/21/18 11:03 Dose: 1 tab Quetiapine Fumarate (Seroquel) 50 mg PO HS PRN PRN Reason: severe insomnia Last Admin: 10/20/18 03:20 Dose: 50 mg Rivaroxaban (Xarelto) 20 mg PO DAILY [facility] Last Admin: 10/21/18 11:03 Dose: 20 mg Rosuvastatin Calcium (Crestor) 20 mg PO HS [facility] Last Admin: 10/20/18 21:54 Dose: 20 mg Temazepam (Restoril) 30 mg PO HS [facility] Last Admin: 10/20/18 21:54 Dose: 30 mg Thiamine HCl (Vitamin B1 Tab) 50 mg PO DAILY [facility] Last Admin: 10/21/18 11:03 Dose: 50 mg - Labs Labs: 10/21/18 17:03 10/19/18 09:11 PT 13.8 SECONDS (9.7-12.2) H 10/13/18 06:18 INR 1.3 10/13/18 06:18 APTT 28 SECONDS (21-34) 10/13/18 06:18 Assessment and Plan - Assessment and Plan (Free Text) Assessment: PLACE UNDER THE SERVICE OF DR Nico KAPLAN AT [facility]----CALL FOR ADMITTING CONTINUE HOME MEDICATION PER MED REC NEW PRESCRIPTION GIVEN FOR ABX VANCO AND ZOSYN FOR 7 MORE DAYS ACTIVITY TOLERATED AND FACILITY PROTOCOL MIDLINE CARE PER FACILITY PROTOCOL CALL DR Nico KAPLAN FOR FURTHER ORDER
[2018-10-21] MEDS: Digoxin 125 mcg (0.125 mg) Tab PO SCH (17:34)
[2018-10-21 17:36] LABS: ALB/GLOB RATIO 1.2 (1.0-2.1); ALBUMIN 3.8 g/dL (3.5-5.0); ALT/SGPT 8 U/L (21-72); AST/SGOT 32 U/L (17-59); BLOOD UREA NITROGEN 29 mg/dL (9-20); CALCIUM 9.5 mg/dl (8.6-10.4); GFR NON-AFRICAN AMERICAN 51
--- NOTE | 2018-10-21 18:12 | CP.PCM.PN ---
Subjective - Date & Time of Evaluation Date of Evaluation: 10/21/18 Time of Evaluation: 14:00 - Subjective Subjective: no nausea or vomitting no fever or chills both feet in multipodous shoes Objective - Vital Signs/Intake and Output Vital Signs (last 24 hours): Temp Pulse Resp BP Pulse Ox 97.6 F 96 H 22 146/84 96 10/21/18 16:00 10/21/18 16:00 10/21/18 16:00 10/21/18 16:00 10/21/18 16:00 - Medications Medications: Current Medications Aspirin (Aspirin Chewable) 81 mg PO DAILY [facility] Last Admin: 10/21/18 11:03 Dose: 81 mg Clonidine HCl (Catapres) 0.1 mg PO TID [facility] Last Admin: 10/21/18 17:34 Dose: 0.1 mg Cyanocobalamin (Vitamin B12 1000 Mcg Tab) 1,000 mcg PO DAILY [facility] Last Admin: 10/21/18 09:44 Dose: Not Given Dextrose (Dextrose 50% Inj) 0 ml IV STAT PRN; Protocol PRN Reason: Hypoglycemia Protocol Dextrose (Glutose 15) 0 gm PO ONCE PRN; Protocol PRN Reason: Hypoglycemia Protocol Digoxin (Digoxin) 0.125 mg PO DAILY@1800 [facility] Last Admin: 10/21/18 17:34 Dose: 0.125 mg Diltiazem HCl (Cardizem) 30 mg PO Q8H [facility] Last Admin: 10/21/18 16:34 Dose: 30 mg Famotidine (Pepcid) 20 mg PO BID [facility] Last Admin: 10/21/18 17:33 Dose: 20 mg Folic Acid (Folic Acid) 1 mg PO DAILY [facility] Last Admin: 10/21/18 11:03 Dose: 1 mg Gabapentin (Neurontin) 800 mg PO BID [facility] Last Admin: 10/21/18 17:33 Dose: 800 mg Glucagon (Glucagen Diagnostic Kit) 0 mg IM STAT PRN; Protocol PRN Reason: Hypoglycemia Protocol Vancomycin HCl 1 gm/ Sodium (Chloride) 250 mls @ 166.7 mls/hr IVPB Q24H [facility]; Protocol Last Admin: 10/21/18 11:02 Dose: 166.7 mls/hr Piperacillin Sod/Tazobactam Sod (Zosyn 3.375 Gm Iv Premix) 3.375 gm in 50 mls @ 100 mls/hr IVPB Q8H [facility]; Protocol Last Admin: 10/21/18 16:34 Dose: 100 mls/hr Insulin Glargine (Lantus) 50 unit SC [facility] Last Admin: 10/20/18 22:47 Dose: Not Given Insulin Human Regular (Novolin R) 0 unit SC [facility]; Protocol Last Admin: 10/21/18 16:42 Dose: 2 units Lisinopril (Zestril) 20 mg PO DAILY [facility] Last Admin: 10/21/18 11:03 Dose: 20 mg Metformin HCl (Glucophage) 1,000 mg PO BID [facility] Last Admin: 10/21/18 17:33 Dose: 1,000 mg Multivitamins (Hexavitamin) 1 tab PO DAILY [facility] Last Admin: 10/21/18 11:03 Dose: 1 tab Quetiapine Fumarate (Seroquel) 50 mg PO HS PRN PRN Reason: severe insomnia Last Admin: 10/20/18 03:20 Dose: 50 mg Rivaroxaban (Xarelto) 20 mg PO DAILY [facility] Last Admin: 10/21/18 11:03 Dose: 20 mg Rosuvastatin Calcium (Crestor) 20 mg PO HS [facility] Last Admin: 10/20/18 21:54 Dose: 20 mg Temazepam (Restoril) 30 mg PO HS [facility] Last Admin: 10/20/18 21:54 Dose: 30 mg Thiamine HCl (Vitamin B1 Tab) 50 mg PO DAILY [facility] Last Admin: 10/21/18 11:03 Dose: 50 mg - Labs Labs: 10/21/18 17:03 10/21/18 17:03 PT 13.8 SECONDS (9.7-12.2) H 10/13/18 06:18 INR 1.3 10/13/18 06:18 APTT 28 SECONDS (21-34) 10/13/18 06:18 - Constitutional Appears: Well - Head Exam Head Exam: ATRAUMATIC, NORMAL INSPECTION, NORMOCEPHALIC - Eye Exam Eye Exam: EOMI, Normal appearance, PERRL Pupil Exam: NORMAL ACCOMODATION, PERRL - ENT Exam ENT Exam: Mucous Membranes Moist, Normal Exam - Neck Exam Neck Exam: Full ROM, Normal Inspection. absent: Lymphadenopathy - Respiratory Exam Respiratory Exam: Decreased Breath Sounds - Cardiovascular Exam Cardiovascular Exam: REGULAR RHYTHM, +S1, +S2 - GI/Abdominal Exam GI & Abdominal Exam: Soft, Diminished Bowel Sounds - Rectal Exam Rectal Exam: Deferred - Neurological Exam Neurological Exam: Oriented x3 Assessment and Plan (1) Atrial fibrillation with rapid ventricular response Status: Acute (2) Dizziness Status: Acute (3) Hyperglycemia Status: Acute (4) Syncope Status: Acute (5) Anemia Status: Acute (6) Arthralgia Status: Chronic (7) Atrial fibrillation Status: Acute (8) Diabetes mellitus Status: Chronic (9) Diastolic CHF Status: Chronic (10) Electrolyte abnormality Status: Acute (11) Foot ulcer Status: Acute (12) HTN (hypertension) Status: Chronic (13) Heroin dependence Status: Chronic (14) Hyperkalemia Status: Acute (15) Hypertension Status: Acute - Assessment and Plan (Free Text) Plan: medications reviewed aspirin chewable cardizem catapress crestor dextrose 50% inj digoxin folic acid glucagen diagnostic kit glucophage glutose 15 hexavitamin lantus neurontin novolin R pepcid restoril seroquel vancomycin vitamin b1 tab vitmain b12 tab xarelto zestril zosyn lantus on hold vitals and labs reviewed For the discharge tomorrow Patient more the leg is in multi-for a suicide To be transferred to [facility] Patient agreed IV vancomycin IV Zosyn to be given 7 more days Patients to get a midline Discussed with the nurse on the duty Follow-up with ID Follow-up with podiatry Follow-up with the respective consultations
[2018-10-21] MEDS: (Lantus) Insulin Glargine, Recombinant SC SCH (22:34)
--- NOTE | 2018-10-21 23:48 | CP.PCM.PN ---
Subjective - Date & Time of Evaluation Date of Evaluation: 10/21/18 Time of Evaluation: 07:00 - Subjective Subjective: seen on rounds nad Objective - Vital Signs/Intake and Output Vital Signs (last 24 hours): Temp Pulse Resp BP Pulse Ox 98.1 F 69 20 105/68 98 10/21/18 08:24 10/21/18 08:24 10/21/18 08:24 10/21/18 08:24 10/21/18 08:24 - Medications Medications: Current Medications Aspirin (Aspirin Chewable) 81 mg PO DAILY [facility] Last Admin: 10/21/18 11:03 Dose: 81 mg Clonidine HCl (Catapres) 0.1 mg PO TID [facility] Last Admin: 10/21/18 09:43 Dose: Not Given Cyanocobalamin (Vitamin B12 1000 Mcg Tab) 1,000 mcg PO DAILY [facility] Last Admin: 10/21/18 09:44 Dose: Not Given Dextrose (Dextrose 50% Inj) 0 ml IV STAT PRN; Protocol PRN Reason: Hypoglycemia Protocol Dextrose (Glutose 15) 0 gm PO ONCE PRN; Protocol PRN Reason: Hypoglycemia Protocol Digoxin (Digoxin) 0.125 mg PO DAILY@1800 [facility] Last Admin: 10/20/18 18:21 Dose: 0.125 mg Diltiazem HCl (Cardizem) 30 mg PO Q8H [facility] Last Admin: 10/21/18 08:12 Dose: 30 mg Famotidine (Pepcid) 20 mg PO BID [facility] Last Admin: 10/21/18 11:03 Dose: 20 mg Folic Acid (Folic Acid) 1 mg PO DAILY [facility] Last Admin: 10/21/18 11:03 Dose: 1 mg Gabapentin (Neurontin) 800 mg PO BID [facility] Last Admin: 10/21/18 11:03 Dose: 800 mg Glucagon (Glucagen Diagnostic Kit) 0 mg IM STAT PRN; Protocol PRN Reason: Hypoglycemia Protocol Vancomycin HCl 1 gm/ Sodium (Chloride) 250 mls @ 166.7 mls/hr IVPB Q24H [facility]; Protocol Last Admin: 10/21/18 11:02 Dose: 166.7 mls/hr Piperacillin Sod/Tazobactam Sod (Zosyn 3.375 Gm Iv Premix) 3.375 gm in 50 mls @ 100 mls/hr IVPB Q8H [facility]; Protocol Last Admin: 10/21/18 08:12 Dose: 100 mls/hr Insulin Glargine (Lantus) 50 unit SC [facility] Last Admin: 10/20/18 22:47 Dose: Not Given Insulin Human Regular (Novolin R) 0 unit SC [facility]; Protocol Last Admin: 10/21/18 11:44 Dose: Not Given Lisinopril (Zestril) 20 mg PO DAILY [facility] Last Admin: 10/21/18 11:03 Dose: 20 mg Metformin HCl (Glucophage) 1,000 mg PO BID [facility] Last Admin: 10/21/18 09:43 Dose: Not Given Multivitamins (Hexavitamin) 1 tab PO DAILY [facility] Last Admin: 10/21/18 11:03 Dose: 1 tab Quetiapine Fumarate (Seroquel) 50 mg PO HS PRN PRN Reason: severe insomnia Last Admin: 10/20/18 03:20 Dose: 50 mg Rivaroxaban (Xarelto) 20 mg PO DAILY [facility] Last Admin: 10/21/18 11:03 Dose: 20 mg Rosuvastatin Calcium (Crestor) 20 mg PO [facility] Last Admin: 10/20/18 21:54 Dose: 20 mg Temazepam (Restoril) 30 mg PO [facility] Last Admin: 10/20/18 21:54 Dose: 30 mg Thiamine HCl (Vitamin B1 Tab) 50 mg PO DAILY [facility] Last Admin: 10/21/18 11:03 Dose: 50 mg - Labs Labs: 10/19/18 09:11 10/19/18 09:11 PT 13.8 SECONDS (9.7-12.2) H 10/13/18 06:18 INR 1.3 10/13/18 06:18 APTT 28 SECONDS (21-34) 10/13/18 06:18 - Constitutional Appears: Non-toxic, Chronically Ill - Head Exam Head Exam: NORMOCEPHALIC - Eye Exam Eye Exam: Scleral icterus - ENT Exam ENT Exam: Mucous Membranes Dry - Neck Exam Neck Exam: absent: Lymphadenopathy - Respiratory Exam Respiratory Exam: Decreased Breath Sounds - Cardiovascular Exam Cardiovascular Exam: REGULAR RHYTHM - GI/Abdominal Exam GI & Abdominal Exam: Distended - Rectal Exam Rectal Exam: Deferred - Extremities Exam Extremities Exam: Pedal Edema - Back Exam Back Exam: absent: CVA tenderness (L), CVA tenderness (R) - Neurological Exam Neurological Exam: Alert, Awake Assessment and Plan - Assessment and Plan (Free Text) Assessment: cont IV antibiotics for 7 more days
[2018-10-22] MEDS: Piperacill/Tazo 3.375gm in Dex 3.375 GM/50 ML BAG IVPB SCH ×4 (00:40→23:42)
[2018-10-22] MEDS: (Novolin R) Insulin Human Regular 100 units/ml vial SC SCH ×4 (08:16→21:54)
--- NOTE | 2018-10-22 09:21 | CP.PCM.PN ---
Subjective - Date & Time of Evaluation Date of Evaluation: 10/22/18 Time of Evaluation: 09:18 - Subjective Subjective: Podiatry Progress Note for Dr. Daly 68M seen and evaluated at bedside for b/l heel ulcerations. Patient is AAO x 3 and NAD, resting comfortably in bed. Denies any acute overnight events or new pedal complaints. Denies any pain to either foot. States that he has been wearing his multipodus boots in bed at all times. Denies any recent N/V/F/C/CP/SOB/D Objective - Vital Signs/Intake and Output Vital Signs (last 24 hours): Temp Pulse Resp BP Pulse Ox 98.4 F 81 20 117/69 95 10/22/18 08:16 10/22/18 08:16 10/22/18 08:16 10/22/18 08:16 10/22/18 08:16 Intake and Output: 10/22/18 10/22/18 06:59 18:59 Intake Total 1140 Output Total 1300 Balance -160 - Medications Medications: Current Medications Aspirin (Aspirin Chewable) 81 mg PO DAILY [facility] Last Admin: 10/21/18 11:03 Dose: 81 mg Clonidine HCl (Catapres) 0.1 mg PO TID [facility] Last Admin: 10/21/18 17:34 Dose: 0.1 mg Cyanocobalamin (Vitamin B12 1000 Mcg Tab) 1,000 mcg PO DAILY [facility] Last Admin: 10/21/18 09:44 Dose: Not Given Dextrose (Dextrose 50% Inj) 0 ml IV STAT PRN; Protocol PRN Reason: Hypoglycemia Protocol Dextrose (Glutose 15) 0 gm PO ONCE PRN; Protocol PRN Reason: Hypoglycemia Protocol Digoxin (Digoxin) 0.125 mg PO DAILY@1800 [facility] Last Admin: 10/21/18 17:34 Dose: 0.125 mg Diltiazem HCl (Cardizem) 30 mg PO Q8H [facility] Last Admin: 10/22/18 00:42 Dose: 30 mg Famotidine (Pepcid) 20 mg PO BID [facility] Last Admin: 10/21/18 17:33 Dose: 20 mg Folic Acid (Folic Acid) 1 mg PO DAILY [facility] Last Admin: 10/21/18 11:03 Dose: 1 mg Gabapentin (Neurontin) 800 mg PO BID [facility] Last Admin: 10/21/18 17:33 Dose: 800 mg Glucagon (Glucagen Diagnostic Kit) 0 mg IM STAT PRN; Protocol PRN Reason: Hypoglycemia Protocol Vancomycin HCl 1 gm/ Sodium (Chloride) 250 mls @ 166.7 mls/hr IVPB Q24H [facility]; Protocol Last Admin: 10/21/18 11:02 Dose: 166.7 mls/hr Piperacillin Sod/Tazobactam Sod (Zosyn 3.375 Gm Iv Premix) 3.375 gm in 50 mls @ 100 mls/hr IVPB Q8H [facility]; Protocol Last Admin: 10/22/18 00:40 Dose: Not Given Insulin Glargine (Lantus) 50 unit SC HS [facility] Last Admin: 10/21/18 22:34 Dose: Not Given Insulin Human Regular (Novolin R) 0 unit SC [facility]; Protocol Last Admin: 10/22/18 08:16 Dose: 2 units Lisinopril (Zestril) 20 mg PO DAILY [facility] Last Admin: 10/21/18 11:03 Dose: 20 mg Metformin HCl (Glucophage) 1,000 mg PO BID [facility] Last Admin: 10/21/18 17:33 Dose: 1,000 mg Multivitamins (Hexavitamin) 1 tab PO DAILY [facility] Last Admin: 10/21/18 11:03 Dose: 1 tab Quetiapine Fumarate (Seroquel) 50 mg PO HS PRN PRN Reason: severe insomnia Last Admin: 10/20/18 03:20 Dose: 50 mg Rivaroxaban (Xarelto) 20 mg PO DAILY [facility] Last Admin: 10/21/18 11:03 Dose: 20 mg Rosuvastatin Calcium (Crestor) 20 mg PO [facility] Last Admin: 10/21/18 22:22 Dose: 20 mg Temazepam (Restoril) 30 mg PO HS [facility] Last Admin: 10/21/18 22:22 Dose: 30 mg Thiamine HCl (Vitamin B1 Tab) 50 mg PO DAILY [facility] Last Admin: 10/21/18 11:03 Dose: 50 mg - Labs Labs: 10/21/18 17:03 10/21/18 17:03 PT 13.8 SECONDS (9.7-12.2) H 10/13/18 06:18 INR 1.3 10/13/18 06:18 APTT 28 SECONDS (21-34) 10/13/18 06:18 - Constitutional Appears: Well, Non-toxic, No Acute Distress - Extremities Exam Additional comments: LE focused exam: Vasc: DP/PT pulses palpable 2/4 b/l. Skin temperature warm to warm from proximal to distal. CFT < 3 seconds to all digits. No edema noted b/l Neuro: Epicritic and protective sensation grossly diminished b/l Derm: Right heel ulceration measuring approximately 1 cm x .1 cm secondary to DM and pressure, wound base is mixture of fibrotic and granular tissue and multiple superfical ulcerations on dorsum of digits left and right foot. There is a lesion, developing pressure ulcer/preulcerative lesion, on left heel measuring approximately 0.5 in diameter and darken discoloration. Fibrogranular wound base. No erythema, no odor, no purulence, drainage or fluctance. No clinical signs of infection. Both wounds appear clinically stable at this time MSK: Pain with palpation of ulceration sites. No gross deformities noted - Neurological Exam Neurological Exam: Alert, Awake, Oriented x3 - Psychiatric Exam Psychiatric exam: Normal Affect, Normal Mood Assessment and Plan - Assessment and Plan (Free Text) Assessment: 68M seen and evaluated at bedside for b/l heel ulcerations Plan: Patient seen and evaluated Plan discussed with Dr. Daly Afebrile, absent leukocytosis Continue abx per ID Wound cx left foot: Staphylococcus Haemolyticus Wound cx right foot: No growth Foot xray: Subacute healing mildly displaced fracture in the right lateral malleolus with presumable surrounding callus. Dedicated ankle radiographs are recommended for complete evaluation the fracture. No acute fracture, dislocation or destructive bony lesion in the left foot. Wounds dressed with hydrogen peroxide, DSD No plan for surgical intervention at this time Multipodus boots reapplied to patient's feet Podiatry will continue to follow while patient in house
[2018-10-22] MEDS: Multiple Vitamins Tab PO SCH (11:02)
--- NOTE | 2018-10-22 12:53 | CP.PCM.PN ---
Subjective - Date & Time of Evaluation Date of Evaluation: 10/22/18 Time of Evaluation: 10:20 - Subjective Subjective: for teetomorrow mild sob although nofever pt appears comfortable pt may have sleep apnoea he understands it no nasuea or vomitting pt awaiting to be trnasferre dto rehab pt is out of bed to lizy pt is in mulitpodous shoes pt is compliant compared all his previsou last admission pt has some visitors onw a days spoke to family before also Objective - Vital Signs/Intake and Output Vital Signs (last 24 hours): Temp Pulse Resp BP Pulse Ox 98.4 F 81 20 117/69 95 10/22/18 08:16 10/22/18 08:16 10/22/18 08:16 10/22/18 08:16 10/22/18 08:16 Intake and Output: 10/22/18 10/22/18 06:59 18:59 Intake Total 1140 Output Total 1300 Balance -160 - Medications Medications: Current Medications Aspirin (Aspirin Chewable) 81 mg PO DAILY [facility] Last Admin: 10/22/18 11:06 Dose: 81 mg Clonidine HCl (Catapres) 0.1 mg PO TID [facility] Last Admin: 10/22/18 11:15 Dose: Not Given Cyanocobalamin (Vitamin B12 1000 Mcg Tab) 1,000 mcg PO DAILY [facility] Last Admin: 10/22/18 11:09 Dose: 1,000 mcg Dextrose (Dextrose 50% Inj) 0 ml IV STAT PRN; Protocol PRN Reason: Hypoglycemia Protocol Dextrose (Glutose 15) 0 gm PO ONCE PRN; Protocol PRN Reason: Hypoglycemia Protocol Digoxin (Digoxin) 0.125 mg PO DAILY@1800 [facility] Last Admin: 10/21/18 17:34 Dose: 0.125 mg Diltiazem HCl (Cardizem) 30 mg PO Q8H [facility] Last Admin: 10/22/18 09:00 Dose: 30 mg Famotidine (Pepcid) 20 mg PO BID [facility] Last Admin: 10/22/18 11:03 Dose: 20 mg Folic Acid (Folic Acid) 1 mg PO DAILY [facility] Last Admin: 10/22/18 11:08 Dose: 1 mg Gabapentin (Neurontin) 800 mg PO BID [facility] Last Admin: 10/22/18 11:07 Dose: 800 mg Glucagon (Glucagen Diagnostic Kit) 0 mg IM STAT PRN; Protocol PRN Reason: Hypoglycemia Protocol Vancomycin HCl 1 gm/ Sodium (Chloride) 250 mls @ 166.7 mls/hr IVPB Q24H [facility]; Protocol Last Admin: 10/22/18 11:12 Dose: 166.7 mls/hr Piperacillin Sod/Tazobactam Sod (Zosyn 3.375 Gm Iv Premix) 3.375 gm in 50 mls @ 100 mls/hr IVPB Q8H [facility]; Protocol Last Admin: 10/22/18 09:00 Dose: 100 mls/hr Insulin Glargine (Lantus) 50 unit SC [facility] Last Admin: 10/21/18 22:34 Dose: Not Given Insulin Human Regular (Novolin R) 0 unit SC [facility]; Protocol Last Admin: 10/22/18 08:16 Dose: 2 units Lisinopril (Zestril) 20 mg PO DAILY [facility] Last Admin: 10/22/18 10:00 Dose: Not Given Metformin HCl (Glucophage) 1,000 mg PO BID [facility] Last Admin: 10/22/18 11:02 Dose: 1,000 mg Multivitamins (Hexavitamin) 1 tab PO DAILY [facility] Last Admin: 10/22/18 11:02 Dose: 1 tab Quetiapine Fumarate (Seroquel) 50 mg PO HS PRN PRN Reason: severe insomnia Last Admin: 10/20/18 03:20 Dose: 50 mg Rivaroxaban (Xarelto) 20 mg PO DAILY [facility] Last Admin: 10/22/18 11:07 Dose: 20 mg Rosuvastatin Calcium (Crestor) 20 mg PO [facility] Last Admin: 10/21/18 22:22 Dose: 20 mg Temazepam (Restoril) 30 mg PO HS [facility] Last Admin: 10/21/18 22:22 Dose: 30 mg Thiamine HCl (Vitamin B1 Tab) 50 mg PO DAILY [facility] Last Admin: 10/22/18 11:08 Dose: 50 mg - Labs Labs: 10/21/18 17:03 10/21/18 17:03 PT 13.8 SECONDS (9.7-12.2) H 10/13/18 06:18 INR 1.3 10/13/18 06:18 APTT 28 SECONDS (21-34) 10/13/18 06:18 - Constitutional Appears: Well - Head Exam Head Exam: ATRAUMATIC, NORMAL INSPECTION, NORMOCEPHALIC - Eye Exam Eye Exam: EOMI, Normal appearance, PERRL Pupil Exam: NORMAL ACCOMODATION, PERRL - ENT Exam ENT Exam: Mucous Membranes Moist, Normal Exam - Neck Exam Neck Exam: Full ROM, Normal Inspection. absent: Lymphadenopathy - Respiratory Exam Respiratory Exam: Decreased Breath Sounds - Cardiovascular Exam Cardiovascular Exam: REGULAR RHYTHM, +S1, +S2 - GI/Abdominal Exam GI & Abdominal Exam: Soft, Diminished Bowel Sounds - Rectal Exam Rectal Exam: Deferred Assessment and Plan (1) Atrial fibrillation with rapid ventricular response Status: Acute (2) Dizziness Status: Acute (3) Hyperglycemia Status: Acute (4) Syncope Status: Acute (5) Anemia Status: Acute (6) Arthralgia Status: Chronic (7) Atrial fibrillation Status: Acute (8) Diabetes mellitus Status: Chronic (9) Diastolic CHF Status: Chronic (10) Electrolyte abnormality Status: Acute (11) Foot ulcer Status: Acute (12) HTN (hypertension) Status: Chronic (13) Heroin dependence Status: Chronic (14) Hyperkalemia Status: Acute (15) Hypertension Status: Acute - Assessment and Plan (Free Text) Plan: medications reviewed labs reviewed vitals reviewed Aspirin chewable cardizem catapress crestor dextrose 50% digoxin folic acid glucagen diagnostic kit glucophage glutose 15 hexavitamin lantus neurontin novolin R pepcid restoril seroquel vancomycin vitamin b1 tab vitamin b12 xarelto zestril zosyn stress test pending d.w cardio for cardioversion tomorrow so admission on hold
--- NOTE | 2018-10-22 15:40 | CP.PCM.PN ---
<Sis Green - Last Filed: 10/22/18 15:37> Subjective - Date & Time of Evaluation Date of Evaluation: 10/22/18 Time of Evaluation: 15:37 - Subjective Subjective: Sis Green, PGY-1, Cardiology Progress Note for Dr. Foster Patient was seen and evaluated at bedside. Patient had no acute overnight events. Patient denies any weakness or dizziness today. Objective - Vital Signs/Intake and Output Vital Signs (last 24 hours): Temp Pulse Resp BP Pulse Ox 98.4 F 81 20 117/69 95 10/22/18 08:16 10/22/18 08:16 10/22/18 08:16 10/22/18 08:16 10/22/18 08:16 Intake and Output: 10/22/18 10/22/18 06:59 18:59 Intake Total 1140 Output Total 1300 Balance -160 - Medications Medications: Current Medications Aspirin (Aspirin Chewable) 81 mg PO DAILY [facility] Last Admin: 10/22/18 11:06 Dose: 81 mg Clonidine HCl (Catapres) 0.1 mg PO TID [facility] Last Admin: 10/22/18 14:00 Dose: Not Given Cyanocobalamin (Vitamin B12 1000 Mcg Tab) 1,000 mcg PO DAILY [facility] Last Admin: 10/22/18 11:09 Dose: 1,000 mcg Dextrose (Dextrose 50% Inj) 0 ml IV STAT PRN; Protocol PRN Reason: Hypoglycemia Protocol Dextrose (Glutose 15) 0 gm PO ONCE PRN; Protocol PRN Reason: Hypoglycemia Protocol Digoxin (Digoxin) 0.125 mg PO DAILY@1800 [facility] Last Admin: 10/21/18 17:34 Dose: 0.125 mg Diltiazem HCl (Cardizem) 30 mg PO Q8H [facility] Last Admin: 10/22/18 09:00 Dose: 30 mg Famotidine (Pepcid) 20 mg PO BID [facility] Last Admin: 10/22/18 11:03 Dose: 20 mg Folic Acid (Folic Acid) 1 mg PO DAILY [facility] Last Admin: 10/22/18 11:08 Dose: 1 mg Gabapentin (Neurontin) 800 mg PO BID [facility] Last Admin: 10/22/18 11:07 Dose: 800 mg Glucagon (Glucagen Diagnostic Kit) 0 mg IM STAT PRN; Protocol PRN Reason: Hypoglycemia Protocol Vancomycin HCl 1 gm/ Sodium (Chloride) 250 mls @ 166.7 mls/hr IVPB Q24H [facility]; Protocol Last Admin: 10/22/18 11:12 Dose: 166.7 mls/hr Piperacillin Sod/Tazobactam Sod (Zosyn 3.375 Gm Iv Premix) 3.375 gm in 50 mls @ 100 mls/hr IVPB Q8H [facility]; Protocol Last Admin: 10/22/18 09:00 Dose: 100 mls/hr Insulin Glargine (Lantus) 50 unit SC HS [facility] Last Admin: 10/21/18 22:34 Dose: Not Given Insulin Human Regular (Novolin R) 0 unit SC ACHS [facility]; Protocol Last Admin: 10/22/18 12:53 Dose: 2 units Lisinopril (Zestril) 20 mg PO DAILY [facility] Last Admin: 10/22/18 10:00 Dose: Not Given Metformin HCl (Glucophage) 1,000 mg PO BID [facility] Last Admin: 10/22/18 11:02 Dose: 1,000 mg Multivitamins (Hexavitamin) 1 tab PO DAILY [facility] Last Admin: 10/22/18 11:02 Dose: 1 tab Quetiapine Fumarate (Seroquel) 50 mg PO HS PRN PRN Reason: severe insomnia Last Admin: 10/20/18 03:20 Dose: 50 mg Rivaroxaban (Xarelto) 20 mg PO DAILY [facility] Last Admin: 10/22/18 11:07 Dose: 20 mg Rosuvastatin Calcium (Crestor) 20 mg PO HS [facility] Last Admin: 10/21/18 22:22 Dose: 20 mg Temazepam (Restoril) 30 mg PO HS [facility] Last Admin: 10/21/18 22:22 Dose: 30 mg Thiamine HCl (Vitamin B1 Tab) 50 mg PO DAILY [facility] Last Admin: 10/22/18 11:08 Dose: 50 mg - Labs Labs: 10/21/18 17:03 10/21/18 17:03 PT 13.8 SECONDS (9.7-12.2) H 10/13/18 06:18 INR 1.3 10/13/18 06:18 APTT 28 SECONDS (21-34) 10/13/18 06:18 - Constitutional Appears: Well, Non-toxic, No Acute Distress - Head Exam Head Exam: ATRAUMATIC, NORMAL INSPECTION, NORMOCEPHALIC - Eye Exam Eye Exam: EOMI, PERRL - ENT Exam ENT Exam: Mucous Membranes Moist - Respiratory Exam Respiratory Exam: Clear to Auscultation Bilateral, NORMAL BREATHING PATTERN - Cardiovascular Exam Cardiovascular Exam: Tachycardia, Irregular Rhythm, +S1, +S2 - GI/Abdominal Exam GI & Abdominal Exam: Normal Bowel Sounds, Soft. absent: Tenderness - Extremities Exam Extremities exam: Positive for: full ROM, normal inspection - Neurological Exam Neurological exam: Alert, CN II-XII Intact, Oriented x3 - Skin Skin Exam: Dry, Intact Assessment and Plan (1) Dizziness Assessment & Plan: Head CT: no acute ICH but 1 discrete right basal ganglia Orthostatic vitals: BP was 113/53 while lying, 125/61 while sitting, and 119/70 while standing thus unremarkable Tropx4: negative BNP: 2150 EKG: atrial fibrillation right RVR with HR: 113 Stress test: unremarkable Continue with aspirin, clonidine, digoxin, cardizem, lisinopril Status: Acute (2) Hyperlipemia Assessment & Plan: Continue with rosuvastatin Status: Acute (3) Atrial fibrillation with rapid ventricular response Assessment & Plan: EKG: atrial fibrillation right RVR with HR: 113 Continue with xarelto 20 mg daily and cardizem 30 mg Q8 Will plan for cardioversion tomorrow and ablation with Dr. Chowdary in the future Status: Acute (4) Diastolic CHF Assessment & Plan: Echocardiogram shows mild left ventricular hypertrophy BNP: 2150 Tropx4: negative Continue with aspirin, digoxin, cardizem, lisinopril Status: Chronic (5) Hypertension Assessment & Plan: Continue with clonidine, digoxin, cardizem, lisinopril Status: Acute (6) Diabetes mellitus Assessment & Plan: HgbA1c: 6.1 Continue with metformin Status: Chronic <Yayo Foster - Last Filed: 10/29/18 19:23> Objective - Vital Signs/Intake and Output Vital Signs (last 24 hours): Temp Pulse Resp BP Pulse Ox 97.4 F L 76 20 125/74 97 10/23/18 15:00 10/23/18 15:00 10/23/18 15:00 10/23/18 17:37 10/23/18 15:00 - Labs Labs: 10/21/18 17:03 10/21/18 17:03 PT 13.8 SECONDS (9.7-12.2) H 10/13/18 06:18 INR 1.3 10/13/18 06:18 APTT 28 SECONDS (21-34) 10/13/18 06:18 Assessment and Plan (1) Atrial fibrillation with rapid ventricular response Status: Acute (2) Dizziness Status: Acute (3) Hyperglycemia Status: Acute (4) Hyperlipemia Status: Acute (5) Syncope Status: Acute (6) Anemia Status: Acute (7) Atrial fibrillation Status: Acute Attending/Attestation - Attestation I have personally seen and examined this patient.: Yes I have fully participated in the care of the patient.: Yes I have reviewed all pertinent clinical information, including history, physical exam and plan: Yes
[2018-10-22] MEDS: Digoxin 125 mcg (0.125 mg) Tab PO SCH (17:32)
[2018-10-22 17:35] VITALS: PULSE 86
[2018-10-22] MEDS: (Lantus) Insulin Glargine, Recombinant SC SCH (22:08)
[2018-10-23] MEDS ORDERED: Lidocaine 4% (Laryng-O-Jet) Kit MM ONE (07:54)
[2018-10-23] MEDS ORDERED: Midazolam 2 MG/2 ML VIAL ONE ×2 (08:01)
[2018-10-23] MEDS ORDERED: Amiodarone 150mg/3 ml vial ONE (08:11)
[2018-10-23] MEDS: Piperacill/Tazo 3.375gm in Dex 3.375 GM/50 ML BAG IVPB SCH ×2 (08:28→16:00)
[2018-10-23] MEDS: (Novolin R) Insulin Human Regular 100 units/ml vial SC SCH ×3 (08:28→17:27)
--- NOTE | 2018-10-23 09:02 | CP.PCM.PN ---
<Sis Green - Last Filed: 10/23/18 08:59> Subjective - Date & Time of Evaluation Date of Evaluation: 10/23/18 Time of Evaluation: 08:59 - Subjective Subjective: Sis Green, PGY-1, Cardiology Progress Note for Dr. Foster Patient was seen and evaluated at bedside. Patient had no acute overnight events. Patient denies any weakness or dizziness today. Objective - Vital Signs/Intake and Output Vital Signs (last 24 hours): Temp Pulse Resp BP Pulse Ox 98.1 F 75 18 154/56 H 95 10/23/18 07:03 10/23/18 07:03 10/23/18 07:03 10/23/18 07:03 10/23/18 07:03 - Medications Medications: Current Medications Aspirin (Aspirin Chewable) 81 mg PO DAILY [facility] Last Admin: 10/22/18 11:06 Dose: 81 mg Clonidine HCl (Catapres) 0.1 mg PO TID [facility] Last Admin: 10/22/18 17:33 Dose: 0.1 mg Cyanocobalamin (Vitamin B12 1000 Mcg Tab) 1,000 mcg PO DAILY [facility] Last Admin: 10/22/18 11:09 Dose: 1,000 mcg Dextrose (Dextrose 50% Inj) 0 ml IV STAT PRN; Protocol PRN Reason: Hypoglycemia Protocol Dextrose (Glutose 15) 0 gm PO ONCE PRN; Protocol PRN Reason: Hypoglycemia Protocol Digoxin (Digoxin) 0.125 mg PO DAILY@1800 [facility] Last Admin: 10/22/18 17:32 Dose: 0.125 mg Diltiazem HCl (Cardizem) 30 mg PO Q8H [facility] Last Admin: 10/23/18 08:28 Dose: Not Given Famotidine (Pepcid) 20 mg PO BID [facility] Last Admin: 10/22/18 17:32 Dose: 20 mg Folic Acid (Folic Acid) 1 mg PO DAILY [facility] Last Admin: 10/22/18 11:08 Dose: 1 mg Gabapentin (Neurontin) 800 mg PO BID [facility] Last Admin: 10/22/18 17:59 Dose: 800 mg Glucagon (Glucagen Diagnostic Kit) 0 mg IM STAT PRN; Protocol PRN Reason: Hypoglycemia Protocol Vancomycin HCl 1 gm/ Sodium (Chloride) 250 mls @ 166.7 mls/hr IVPB Q24H [facility]; Protocol Last Admin: 10/22/18 11:12 Dose: 166.7 mls/hr Piperacillin Sod/Tazobactam Sod (Zosyn 3.375 Gm Iv Premix) 3.375 gm in 50 mls @ 100 mls/hr IVPB Q8H [facility]; Protocol Last Admin: 10/23/18 08:28 Dose: Not Given Insulin Human Regular (Novolin R) 0 unit SC ACHS [facility]; Protocol Last Admin: 10/23/18 08:28 Dose: Not Given Lisinopril (Zestril) 20 mg PO DAILY [facility] Last Admin: 10/22/18 10:00 Dose: Not Given Metformin HCl (Glucophage) 1,000 mg PO BID [facility] Last Admin: 10/22/18 17:31 Dose: 1,000 mg Multivitamins (Hexavitamin) 1 tab PO DAILY [facility] Last Admin: 10/22/18 11:02 Dose: 1 tab Quetiapine Fumarate (Seroquel) 50 mg PO HS PRN PRN Reason: severe insomnia Last Admin: 10/23/18 00:36 Dose: 50 mg Rivaroxaban (Xarelto) 20 mg PO DAILY [facility] Last Admin: 10/22/18 11:07 Dose: 20 mg Rosuvastatin Calcium (Crestor) 20 mg PO HS [facility] Last Admin: 10/22/18 22:08 Dose: 20 mg Temazepam (Restoril) 30 mg PO HS [facility] Last Admin: 10/22/18 22:08 Dose: 30 mg Thiamine HCl (Vitamin B1 Tab) 50 mg PO DAILY [facility] Last Admin: 10/22/18 11:08 Dose: 50 mg - Labs Labs: 10/21/18 17:03 10/21/18 17:03 PT 13.8 SECONDS (9.7-12.2) H 10/13/18 06:18 INR 1.3 10/13/18 06:18 APTT 28 SECONDS (21-34) 10/13/18 06:18 - Constitutional Appears: Well, Non-toxic, No Acute Distress - Head Exam Head Exam: ATRAUMATIC, NORMAL INSPECTION, NORMOCEPHALIC - Eye Exam Eye Exam: EOMI, PERRL - ENT Exam ENT Exam: Mucous Membranes Moist - Respiratory Exam Respiratory Exam: Clear to Auscultation Bilateral, NORMAL BREATHING PATTERN - Cardiovascular Exam Cardiovascular Exam: RRR, +S1, +S2 - GI/Abdominal Exam GI & Abdominal Exam: Normal Bowel Sounds, Soft. absent: Tenderness - Extremities Exam Extremities exam: Positive for: full ROM, normal inspection - Neurological Exam Neurological exam: Alert, CN II-XII Intact, Oriented x3 - Skin Skin Exam: Dry, Intact Assessment and Plan (1) Dizziness Assessment & Plan: Assessment & Plan: Head CT: no acute ICH but 1 discrete right basal ganglia Orthostatic vitals: BP was 113/53 while lying, 125/61 while sitting, and 119/70 while standing thus unremarkable Tropx4: negative BNP: 2150 EKG: atrial fibrillation right RVR with HR: 113 Stress test: unremarkable Continue with aspirin, clonidine, digoxin, cardizem, lisinopril Status: Acute (2) Hyperlipemia Assessment & Plan: Continue with rosuvastatin Status: Acute (3) Atrial fibrillation with rapid ventricular response Assessment & Plan: EKG: atrial fibrillation right RVR with HR: 113 Continue with xarelto 20 mg daily and cardizem 30 mg Q8 Patient cardioverted back into NSR. Will have ablation procedure later today. Status: Acute (4) Diastolic CHF Assessment & Plan: TTE: shows mild left ventricular hypertrophy LUPILLO: mitral regurgitation, aortic atheroma BNP: 2150 Tropx4: negative Continue with aspirin, digoxin, cardizem, lisinopril Status: Chronic (5) Hypertension Assessment & Plan: Continue with clonidine, digoxin, cardizem, lisinopril Status: Acute (6) Diabetes mellitus Assessment & Plan: HgbA1c: 6.1 Continue with metformin Status: Chronic <Yayo Foster - Last Filed: 10/29/18 19:23> Objective - Vital Signs/Intake and Output Vital Signs (last 24 hours): Temp Pulse Resp BP Pulse Ox 97.4 F L 76 20 125/74 97 10/23/18 15:00 10/23/18 15:00 10/23/18 15:00 10/23/18 17:37 10/23/18 15:00 - Labs Labs: 10/21/18 17:03 10/21/18 17:03 PT 13.8 SECONDS (9.7-12.2) H 10/13/18 06:18 INR 1.3 10/13/18 06:18 APTT 28 SECONDS (21-34) 10/13/18 06:18 Assessment and Plan (1) Atrial fibrillation with rapid ventricular response Status: Acute (2) Dizziness Status: Acute (3) Hyperglycemia Status: Acute (4) Hyperlipemia Status: Acute (5) Syncope Status: Acute (6) Anemia Status: Acute (7) Atrial fibrillation Status: Acute Attending/Attestation - Attestation I have personally seen and examined this patient.: Yes I have fully participated in the care of the patient.: Yes I have reviewed all pertinent clinical information, including history, physical exam and plan: Yes
[2018-10-23 10:03] VITALS: RESP 20
[2018-10-23] MEDS: Multiple Vitamins Tab PO SCH (11:07)
[2018-10-23 17:37] VITALS: BP 125/74
[2018-10-23 17:42] VITALS: PULSE 76; TEMP 97.4; O2SAT 97
--- NOTE | 2018-10-23 18:20 | CP.PCM.PN ---
Subjective - Date & Time of Evaluation Date of Evaluation: 10/23/18 - Subjective Subjective: patient examined today no nausea no fever no vomiting no sob no dizziness no diarrhea Objective - Vital Signs/Intake and Output Vital Signs (last 24 hours): Temp Pulse Resp BP Pulse Ox 97.4 F L 76 20 125/74 97 10/23/18 15:00 10/23/18 15:00 10/23/18 15:00 10/23/18 17:37 10/23/18 15:00 - Medications Medications: Current Medications Aspirin (Aspirin Chewable) 81 mg PO DAILY [facility] Last Admin: 10/23/18 11:07 Dose: 81 mg Clonidine HCl (Catapres) 0.1 mg PO TID [facility] Last Admin: 10/23/18 17:31 Dose: 0.1 mg Cyanocobalamin (Vitamin B12 1000 Mcg Tab) 1,000 mcg PO DAILY [facility] Last Admin: 10/23/18 11:06 Dose: 1,000 mcg Dextrose (Dextrose 50% Inj) 0 ml IV STAT PRN; Protocol PRN Reason: Hypoglycemia Protocol Dextrose (Glutose 15) 0 gm PO ONCE PRN; Protocol PRN Reason: Hypoglycemia Protocol Diltiazem HCl (Cardizem) 30 mg PO Q8H [facility] Last Admin: 10/23/18 17:00 Dose: 30 mg Famotidine (Pepcid) 20 mg PO BID [facility] Last Admin: 10/23/18 17:30 Dose: 20 mg Folic Acid (Folic Acid) 1 mg PO DAILY [facility] Last Admin: 10/23/18 11:07 Dose: 1 mg Gabapentin (Neurontin) 800 mg PO BID [facility] Last Admin: 10/23/18 17:29 Dose: 800 mg Glucagon (Glucagen Diagnostic Kit) 0 mg IM STAT PRN; Protocol PRN Reason: Hypoglycemia Protocol Vancomycin HCl 1 gm/ Sodium (Chloride) 250 mls @ 166.7 mls/hr IVPB Q24H [facility]; Protocol Last Admin: 10/23/18 11:06 Dose: 166.7 mls/hr Piperacillin Sod/Tazobactam Sod (Zosyn 3.375 Gm Iv Premix) 3.375 gm in 50 mls @ 100 mls/hr IVPB Q8H [facility]; Protocol Last Admin: 10/23/18 16:00 Dose: 100 mls/hr Insulin Human Regular (Novolin R) 0 unit SC ACHS [facility]; Protocol Last Admin: 10/23/18 17:27 Dose: 2 units Lisinopril (Zestril) 20 mg PO DAILY [facility] Last Admin: 10/23/18 11:07 Dose: 20 mg Metformin HCl (Glucophage) 1,000 mg PO BID [facility] Last Admin: 10/23/18 17:30 Dose: 1,000 mg Multivitamins (Hexavitamin) 1 tab PO DAILY [facility] Last Admin: 10/23/18 11:07 Dose: 1 tab Quetiapine Fumarate (Seroquel) 50 mg PO HS PRN PRN Reason: severe insomnia Last Admin: 10/23/18 00:36 Dose: 50 mg Rivaroxaban (Xarelto) 20 mg PO DAILY [facility] Last Admin: 10/23/18 11:07 Dose: 20 mg Rosuvastatin Calcium (Crestor) 20 mg PO HS [facility] Last Admin: 10/22/18 22:08 Dose: 20 mg Temazepam (Restoril) 30 mg PO HS [facility] Last Admin: 10/22/18 22:08 Dose: 30 mg Thiamine HCl (Vitamin B1 Tab) 50 mg PO DAILY [facility] Last Admin: 10/23/18 11:07 Dose: 50 mg - Labs Labs: 10/21/18 17:03 10/21/18 17:03 PT 13.8 SECONDS (9.7-12.2) H 10/13/18 06:18 INR 1.3 10/13/18 06:18 APTT 28 SECONDS (21-34) 10/13/18 06:18 - Constitutional Appears: Well - Head Exam Head Exam: ATRAUMATIC, NORMAL INSPECTION, NORMOCEPHALIC - Eye Exam Eye Exam: EOMI, Normal appearance, PERRL Pupil Exam: NORMAL ACCOMODATION, PERRL - ENT Exam ENT Exam: Mucous Membranes Moist, Normal Exam - Neck Exam Neck Exam: Full ROM, Normal Inspection. absent: Lymphadenopathy - Respiratory Exam Respiratory Exam: Decreased Breath Sounds - Cardiovascular Exam Cardiovascular Exam: REGULAR RHYTHM, +S1, +S2 - GI/Abdominal Exam GI & Abdominal Exam: Soft, Diminished Bowel Sounds - Rectal Exam Rectal Exam: Deferred Assessment and Plan (1) Atrial fibrillation with rapid ventricular response Status: Acute (2) Dizziness Status: Acute (3) Hyperglycemia Status: Acute (4) Syncope Status: Acute (5) Anemia Status: Acute (6) Arthralgia Status: Chronic (7) Atrial fibrillation Status: Acute (8) Diabetes mellitus Status: Chronic (9) Diastolic CHF Status: Chronic (10) Electrolyte abnormality Status: Acute (11) Foot ulcer Status: Acute (12) HTN (hypertension) Status: Chronic (13) Heroin dependence Status: Chronic (14) Hyperkalemia Status: Acute (15) Hypertension Status: Acute - Assessment and Plan (Free Text) Plan: medications reviewed labs reviewed vitals reviewed aspirin chewable cardizem catapress crestor dextrose 50inj folic acid glucagen diagnostic kit glucophage glutose 15 hexavitamin neurontin novolin R pepcid restoril seroquel vancomycin hcl vitamin b1 tab vitamin b12 xarelto zestril zosyn 3.375mg
--- NOTE | 2018-10-23 22:43 | CP.PCM.DIS ---
Provider - Provider Date of Admission: 10/13/18 21:46 Attending physician: Mireya Forrest MD Consults: 10/13/18 10:40 Psychiatry Consult Routine Comment: Consulting Provider: Marbella Lowry Consulting Physician: Marbella Lowry Reason for Consult: detox for heroin and ETOH 10/13/18 19:20 Wound Care [Nursing Referral for Wound Care] Routine Comment: Physician Instructions: Reason For Exam: bilateral heel and leg ulcers 10/13/18 21:40 Cardiology Consult Routine Comment: Consulting Provider: Yayo Foster Consulting Physician: Yayo Foster Reason for Consult: Rapid afib, on cardizem drip Critical Care Consult Routine Comment: Consulting Provider: Madhuri Coppola Consulting Physician: Madhuri Coppola Reason for Consult: ICU eval-on cardizem drip for rapid AFib. Podiatry Consult Routine Comment: call in AM Consulting Provider: Black Calderon Consulting Physician: Black Calderon Reason for Consult: jamal. foot ulcers 10/14/18 07:06 Social Work Referral Routine Comment: discharge needs Physician Instructions: Reason For Exam: ETOH and heroine use, lives alone, frequent falls 10/16/18 13:30 Infectious Disease Consult Routine Comment: Consulting Provider: Luis Felipe Urban Consulting Physician: Luis Felipe Urban Reason for Consult: duration of antibiotics for foot ulcer Time Spent in preparation of Discharge (in minutes): 20 Diagnosis - Discharge Diagnosis (1) Atrial fibrillation with rapid ventricular response Status: Acute (2) Dizziness Status: Acute (3) Hyperglycemia Status: Acute (4) Syncope Status: Acute (5) Anemia Status: Acute (6) Arthralgia Status: Chronic (7) Atrial fibrillation Status: Acute (8) Diabetes mellitus Status: Chronic (9) Diastolic CHF Status: Chronic (10) Electrolyte abnormality Status: Acute (11) Foot ulcer Status: Acute (12) HTN (hypertension) Status: Chronic (13) Heroin dependence Status: Chronic (14) Hyperkalemia Status: Acute (15) Hypertension Status: Acute Hospital Course - Lab Results Lab Results: Micro Results 10/17/18 14:53 Foot - Right Gram Stain - Final 10/17/18 14:53 Foot - Right Wound Culture - Final No growth. 10/17/18 14:53 Foot - Left Gram Stain - Final 10/17/18 14:53 Foot - Left Wound Culture - Final Staphylococcus Haemolyticus 10/14/18 00:55 Blood-Venous Blood Culture - Final NO GROWTH AFTER 5 DAYS 10/14/18 00:55 Blood-Venous Gram Stain - Final TEST NOT PERFORMED 10/14/18 00:55 Blood-Venous Blood Culture - Final NO GROWTH AFTER 5 DAYS 10/14/18 00:55 Blood-Venous Gram Stain - Final TEST NOT PERFORMED 10/15/18 06:33 Nose MRSA Culture - Final MRSA NOT DETECTED 10/13/18 11:19 Naris MRSA Culture (Admit) - Final MRSA NOT DETECTED Most Recent Lab Values WBC 5.8 K/uL (4.8-10.8) 10/21/18 17:03 RBC 3.89 Mil/uL (4.40-5.90) L 10/21/18 17:03 Hgb 11.0 g/dL (12.0-18.0) L 10/21/18 17:03 Hct 34.2 % (35.0-51.0) L 10/21/18 17:03 MCV 87.8 fL (80.0-94.0) 10/21/18 17:03 MCH 28.1 pg (27.0-31.0) 10/21/18 17:03 MCHC 32.0 g/dL (33.0-37.0) L 10/21/18 17:03 RDW 21.7 % (11.5-14.5) H 10/21/18 17:03 Plt Count 154 K/uL (130-400) 10/21/18 17:03 MPV 8.3 fL (7.2-11.7) 10/21/18 17:03 Neut % (Auto) 77.9 % (50.0-75.0) H 10/21/18 17:03 Lymph % (Auto) 11.1 % (20.0-40.0) L 10/21/18 17:03 [place] % (Auto) 8.1 % (0.0-10.0) 10/21/18 17:03 Eos % (Auto) 2.1 % (0.0-4.0) 10/21/18 17:03 Baso % (Auto) 0.8 % (0.0-2.0) 10/21/18 17:03 Neut # (Auto) 4.5 K/uL (1.8-7.0) 10/21/18 17:03 Lymph # (Auto) 0.6 K/uL (1.0-4.3) L 10/21/18 17:03 [place] # (Auto) 0.5 K/uL (0.0-0.8) 10/21/18 17:03 Eos # (Auto) 0.1 K/uL (0.0-0.7) 10/21/18 17:03 Baso # (Auto) 0.0 K/uL (0.0-0.2) 10/21/18 17:03 PT 13.8 SECONDS (9.7-12.2) H 10/13/18 06:18 INR 1.3 10/13/18 06:18 APTT 28 SECONDS (21-34) 10/13/18 06:18 Sodium 136 mmol/L (132-148) 10/21/18 17:03 Potassium 4.9 mmol/L (3.6-5.2) 10/21/18 17:03 Chloride 107 mmol/L (98-107) 10/21/18 17:03 Carbon Dioxide 21 mmol/L (22-30) L 10/21/18 17:03 Anion Gap 14 (10-20) 10/21/18 17:03 BUN 29 mg/dL (9-20) H 10/21/18 17:03 Creatinine 1.4 mg/dL (0.8-1.5) 10/21/18 17:03 Est GFR ( Amer) > 60 10/21/18 17:03 Est GFR (Non-Af Amer) 51 10/21/18 17:03 POC Glucose (mg/dL) 188 mg/dL (65-110) H 10/23/18 11:53 Random Glucose 186 mg/dL (75-110) H D 10/21/18 17:03 Hemoglobin A1c 6.1 % (4.2-6.5) 10/14/18 06:31 Calcium 9.5 mg/dl (8.6-10.4) 10/21/18 17:03 Phosphorus 4.3 mg/dL (2.5-4.5) 10/19/18 09:11 Magnesium 1.5 mg/dL (1.6-2.3) L 10/19/18 09:11 Iron 179 ug/dL (49-181) 10/14/18 00:48 TIBC 329 ug/dL (250-450) 10/14/18 00:48 % Saturation 54 (20-55) 10/14/18 00:48 Total Bilirubin 0.3 mg/dL (0.2-1.3) 10/21/18 17:03 AST 32 U/L (17-59) 10/21/18 17:03 ALT 8 U/L (21-72) L 10/21/18 17:03 Alkaline Phosphatase 88 U/L (38-126) 10/21/18 17:03 Total Creatine Kinase 47 U/L (55-170) L 10/14/18 14:14 CK-MB (Mass) 0.73 ng/mL (0.0-3.38) 10/14/18 14:14 Troponin I < 0.0120 ng/mL (0.00-0.120) 10/14/18 14:14 NT-Pro-B Natriuret Pep 2150 pg/mL (0-900) H 10/13/18 06:18 Total Protein 6.9 g/dL (6.3-8.3) 10/21/18 17:03 Albumin 3.8 g/dL (3.5-5.0) 10/21/18 17:03 Globulin 3.2 gm/dL (2.2-3.9) 10/21/18 17:03 Albumin/Globulin Ratio 1.2 (1.0-2.1) 10/21/18 17:03 Vitamin B12 160 pg/mL (239-931) L 10/14/18 00:48 RBC Folate 901 ng/mL RBC (>280) 10/13/18 07:19 Cortisol AM Sample 5.8 ug/dL (4.46-22.7) 10/15/18 07:25 Stool Occult Blood Positive (NEGATIVE) H 10/14/18 15:26 Vancomycin Trough 8.5 ug/mL (5.0-10.0) 10/23/18 07:40 Digoxin < 0.4 ng/mL (0.8-2.0) L 10/13/18 06:18 Urine Opiates Screen Positive (NEGATIVE) H 10/13/18 20:59 Urine Methadone Screen Negative (NEGATIVE) 10/13/18 20:59 Ur Barbiturates Screen Negative (NEGATIVE) 10/13/18 20:59 Ur Phencyclidine Scrn Negative (NEGATIVE) 10/13/18 20:59 Ur Amphetamines Screen Negative (NEGATIVE) 10/13/18 20:59 U Benzodiazepines Scrn Negative (NEGATIVE) 10/13/18 20:59 U Oth Cocaine Metabols Negative (NEGATIVE) 10/13/18 20:59 U Cannabinoids Screen Negative (NEGATIVE) 10/13/18 20:59 Alcohol, Quantitative 141 mg/dl (0-10) H 10/13/18 07:02 - Hospital Course Hospital Course: medications reviewed labs reviewed vitals reviewed aspirin chewable cardizem catapress crestor dextrose 50inj folic acid glucagen diagnostic kit glucophage glutose 15 hexavitamin neurontin novolin R pepcid restoril seroquel vancomycin hcl vitamin b1 tab vitamin b12 xarelto zestril zosyn 3.375mg iv antibitoic for 7 days to be discharged to [facility] today pt is aware pt wants his med there as per him will w/f for nasue or vomititng Discharge Exam - Head Exam Head Exam: ATRAUMATIC, NORMAL INSPECTION, NORMOCEPHALIC - Eye Exam Eye Exam: EOMI, Normal appearance, PERRL Pupil Exam: NORMAL ACCOMODATION, PERRL - Respiratory Exam Respiratory Exam: Decreased Breath Sounds - Cardiovascular Exam Cardiovascular Exam: REGULAR RHYTHM, +S1, +S2 - GI/Abdominal Exam GI & Abdominal Exam: Diminished Bowel Sounds, Soft - Rectal Exam Rectal Exam: Deferred - Neurological Exam Neurological exam: Oriented x3 Discharge Plan - Discharge Medications Prescriptions: Flecainide [Tambocor] 100 mg PO Q12 #60 tab - Follow Up Plan Condition: IMPROVED Disposition: TRANSF TO SNF Instructions: Low Cholesterol, Saturated Fat, and Trans Fat Diet , Atrial Fibrillation (DC), Heart Failure, Adult (DC), Vancomycin Additional Instructions: Please admit patient under Dr. Watt service - Call Dr. Watt upon patient arrival to the facility Patient needs to follow up with Dr. Chowdary ( EP) office after discharge from [facility]- call and make appointmen t- for furtehr treatment for a fib Please continue vanco and zozyn x 7 days Please do vanco trough Saturday and keep vanco trough 10-20 Please do cbc, bmp Saturday Continue all other medications as per med. rec. All other management as per Dr. Watt and contact Dr. Watt for any issues Referrals: Marbella Lowry MD [Staff Provider] - Black Calderon DPM [Doctor Podiatric Medicine] - Yayo Foster MD [Staff Provider] - Luis Felipe Urban MD [Staff Provider] - Kayley Forrest MD [Staff Provider] -
--- NOTE | 2018-10-24 03:01 | CON ---
DATE: 10/23/2018 CONSULT SERVICE: Clinical cardiac electrophysiology. PHYSICIAN PERFORMING CONSULT: Terrence Chowdary MD PHYSICIAN REQUESTING CONSULT: Yayo Foster MD HISTORY OF PRESENT ILLNESS: Mr. Joseph Garcia is a pleasant 68-year-old male with a history of late paroxysmal atrial fibrillation with a CHADS-VASc score of 2-3, on oral anticoagulation at home; diabetes, obesity, hepatitis C, history of IV drug abuse, he says in the past; and peripheral venous disease, who presents to [facility] with complications noted to be in rapidly conducting atrial fibrillation. Historically, the patient is known about his atrial fibrillation since 2017. Review of EKGs in the [facility] system have demonstrated clear sinus rhythm in the beginning of 2017 and the development of atrial fibrillation. He says he was cardioverted at [facility] at some point in the past and having placed on amiodarone. There was a discussion at some point in the past at [facility] to have an ablation performed, but the patient did not want it done at that time. He now presents with shortness of breath and palpitations. During his hospital stay, the patient had a nuclear stress test, which was reportedly unremarkable. He also underwent an echocardiogram, which demonstrated normal LV function and minimal left atrial dilation by report. He also reportedly had normal left ventricular wall thickness. He ultimately underwent a LUPILLO cardioversion today and is now in sinus rhythm. His EKG now demonstrates sinus rhythm with a first-degree AV delay and narrow QRS. He does endorse fatigue and palpitations during his atrial fibrillation episodes. He feels at this point in his life, he would be like to focus on feeling better and is very interested in rhythm controlling strategies. REVIEW OF SYSTEMS: A comprehensive 10-point review of system was performed and notable for what is seen above. FAMILY HISTORY AND SOCIAL HISTORY: Reviewed. The patient does mention he has used IV drugs in the past and said he has last used 6 months ago. He, I believe, worked in the [employer] department in the past for several years, is now retired. His sister lives in the area. PHYSICAL EXAMINATION: GENERAL: The patient is alert, oriented, conversant. VITAL SIGNS: The patient's blood pressure is 124/72, heart rate of 81, and respiratory rate of 14. NECK: Supple with increased neck girth. PULMONARY: Lungs are clear anteriorly. GASTROINTESTINAL: Abdomen is soft. EXTREMITIES: No edema. SKIN: No rashes. NEUROLOGIC: Grossly intact. PSYCHIATRIC: Normal affect. LABORATORY DATA: Labs are reviewed. ASSESSMENT AND PLAN: In summary, Mr. Joseph Garcia is presenting with symptomatic atrial fibrillation. I am unclear of his exact timeline of atrial fibrillation. He may be late paroxysmal or early persistent atrial fibrillation. I am unclear if his timeline of atrial fibrillation episode is not entirely known. I had a lengthy discussion with the patient regarding the diagnosis of atrial fibrillation including the pathophysiology and some of the untoward effects. First of all, we reviewed his thromboembolic risks and suggest that he should continue his oral anticoagulation which he will and has tolerated this well for the last year or so. He also understands the risks albeit small of life threatening bleed. If the patient is symptomatic, continuing and perhaps, expanding on his rhythm controlling strategy may be appropriate. I discussed with the patient at length regarding the importance of compliance and adherence to medical regimen. He says he has been very compliant and it has been suggested by his notes and other caring physicians. He himself seems very interested in pursuing an option to maximally reduce the likelihood of atrial fibrillation burden. I described to him that the most efficacious option to reduce atrial fibrillation burden is an atrial fibrillation ablation. I mentioned at front that there is no cure for atrial fibrillation, but certainly, an AF ablation can cut down the amount of AF substantially, and certainly much better than the antiarrhythmic drugs. As the patient has been on Seroquel, and I believe, methadone at some point in the past, class 3 antiarrhythmics are likely suboptimal, but because he has no known coronary disease on stress testing, normal LV function and report of normal wall thickness, I believe that a 1C antiarrhythmic such as flecainide may be reasonable to help maintain sinus rhythm for now. Additionally, because he is interested in ablation, we discussed the potential risks and benefits, and he will see me in my office in the next week or so and we will likely have this arranged, assuming the patient remains interested, at [facility]. Additionally, I would stop his digoxin. His recent data has suggested worsened outcomes for the patients on digoxin. Thank you very much for allowing me to participate in the care of this patient. Terrence Chowdary MD cc: MD Mireya Unger MD
--- NOTE | 2018-10-29 19:26 | CARD ---
APPROVED REPORT Date of service: 10/21/2018 Protocol: LEXISCAN Test Type: LEXISCAN STRESS Test Indications: A FIB Medical History: CP Target HR: 153 bpm Resting ECG: normal Resting Heart Rate: 66 bpm Resting Blood Pressure: 138/80mmHg submaximum (85%): 130 bpm TEST SUMMARY [id number]/80.0. INFUSIONDOSE 100:300.00.01.067/.0. [id number]/80.0. PROCEDURE Pharmacologic stress testing was performed using 0.4mg per 5ml of regadenoson given intravenously over 7-10 seconds. POST EXERCISE Reason for Termination: Protocol Completed Target HR: No Max HR: 67 bpm 55% of Maximum Predicted HR: 153 bpm Exercise duration: 00:30 min:sec, 0 Stage Exercise capacity: 1.0METs Max Blood Pressure: 138/80mmHg Blood Pressure response to exercise: N/A Heart Rate response to exercise: N/A Chest Pain: No, none Angina index: 0 Arrhythmia: No, none ST Change: No, none Deviation: 0 mm EXAM: Myocardial Perfusion REST/STRESS Imaging Protocol The imaging protocol used to acquire images was Rest Tc-99m/stress Tc-99m 1 day Rest Spect myocardial perfusion imaging was performed in supine position 45 minutes following the injection of 13.2 mCi of Tc-99 Myoview. Gated Stress Spect was performed 45 minutes after intravenous 29.0 mCi Tc-99 Myoview injection. The images were gated to evaluate regional wall motion and calculate ventricular ejection fraction.Images were reconstructed using backfilter projection method in short horizontal and verticle long axis. Spect slices were generated. RESTING DATA DNF010.92gkCR5.40L/min ESV56.00mlMyocardial Qzio484.00g Av. Heart Rate70.00bpm EF58.00% STRESS DATA NCD799.17dnWE4.40L/min ESV53.00mlMyocardial Xkge368.00g EF62.00% Regional WT score at stress:1.00 Regional WM score at stress:0.00 Summed WT score at stress:1.00 Av. Heart Rate74.00bpmSummed WM score at stress:1.00 Study quality was fair. Left Ventricular size was Normal at Rest and Stress. The rest and stress images show normal perfusion, normal contraction and thickening. LV Perf. Quant 17 Seg. SSS0.00 17 Seg. SRS3.00 17 Seg. SDS0.00 Stress Defect Extent (% LAD)0.00Rest Defect Extent (% LAD)0.00Rev. Defect Extent (% LAD)0.00 Stress Defect Extent (% LCX)0.00Rest Defect Extent (% LCX)20.00Rev. Defect Extent (% LCX)0.00 Stress Defect Extent (% RCA)0.00Rest Defect Extent (% RCA)0.00Rev. Defect Extent (% RCA)0.00 Stress Defect Extent (% SHERRI)0.00Rest Defect Extent (% SHERRI)8.00Rev. Defect Extent (% SHERRI)0.00 Other Information Quality:Average Overall Exercise Capacity: n/a Conclusion 1. - Normal myocardial perfusion study with no evidence of ischemia 2. - Normal LVEF
--- NOTE | 2018-10-29 19:37 | CARD ---
APPROVED REPORT Date of service: 10/23/2018 EXAM: Transesophageal echocardiogram with color flow Doppler and Synchronized Cardioversion. INDICATION Atrial Fibrillation Mitral Valve E/A ratio0.0 TDI E/Lateral E'0.0E/Medial E'0.0 Reason For Test : atrial fibrillation PROCEDURE After obtaining informed consent, patient underwent transesophageal echo in the [facility]. Type of Sedation : Conscious Sedation Sedation was administered by Cristian. Sedation was achieved with Versed, Fentanyl mg intravenously. Transesophageal probe was inserted and advanced into esophagus without difficulty. Echo enhancement indication: R/O Septal defect. Echo enhancement agent administered: Agitated Saline The LUPILLO was performed without complications. Synchronized Cardioversion attempted: Successful Synchronized Cardioversion acheived with 200 Joules after 1 attempt(s). Rhythm following Synchronized Cardioversion: Normal Sinus Rhythm Throughout the procedure, the blood pressure, pulse oximetry, cardiac rhythm, and rate were monitored. The patient tolerated the procedure without adverse effects. Recovery from conscious sedation was uneventful and vital signs were stable. LEFT VENTRICLE The left ventricle is borderline enlarged. There is mild concentric left ventricular hypertrophy. Left ventricle systolic function is low normal. The Ejection Fraction is 50-55%. There is normal LV segmental wall motion. unable to assess due to afib No left ventricle thrombus noted on this study. There is no ventricular septal defect visualized. There is no left ventricular aneurysm. There is no mass noted in the left ventricle. RIGHT VENTRICLE The right ventricle is borderline enlarged. The right ventricle is mildly to moderately dilated. There is normal right ventricular wall thickness. The right ventricular systolic function is normal. ATRIA The left atrium is mildly dilated. The right atrium is mildly dilated. The interatrial septum is intact with no evidence for an atrial septal defect. AORTIC VALVE The aortic valve is normal in structure. No aortic regurgitation is present. There is no aortic valvular stenosis. There is no aortic valvular vegetation. MITRAL VALVE The mitral valve is normal in structure. There is no evidence of mitral valve prolapse. There is no mitral valve stenosis. Mitral regurgitation is moderate. TRICUSPID VALVE The tricuspid valve is normal in structure. There is mild to moderate tricuspid regurgitation. There is no tricuspid valve prolapse or vegetation. There is no tricuspid valve stenosis. PULMONIC VALVE The pulmonary valve is normal in structure. There is no pulmonic valvular regurgitation. There is no pulmonic valvular stenosis. GREAT VESSELS The aortic root is normal in size. PERICARDIAL EFFUSION There is no pericardial effusion. <Conclusion> The right ventricle is borderline enlarged. The right ventricle is mildly to moderately dilated. Mitral regurgitation is moderate. Left ventricle systolic function is low normal. The Ejection Fraction is 50-55%. There is normal LV segmental wall motion. Successful cardioversion with 200J of DCCV to NSR.
== END 2018-10-23 20:10 | DRG 264 ==
LOC: C.ER 23:05 → C.9E 10-13 07:06 → C.9I 10-13 09:14 → OBSVTOIN 10-13 21:46 → C.6T 10-14 20:59
PROVIDERS: ADMIT Internal Medicine Nephrology; ATTEND Internal Medicine Nephrology
PROC: HZ56ZZZ Individual Psychotherapy for Substance Abuse Treatment, Psychoeducation (ICD-10-PCS; 2018-10-14)
PROC: HZ2ZZZZ Detoxification Services for Substance Abuse Treatment (ICD-10-PCS; 2018-10-14)
PROC: HZ81ZZZ Medication Management for Substance Abuse Treatment, Methadone Maintenance (ICD-10-PCS; 2018-10-14)
PROC: HZ59ZZZ Individual Psychotherapy for Substance Abuse Treatment, Supportive (ICD-10-PCS; 2018-10-14)
PROC: 0JBR0ZZ Excision of Left Foot Subcutaneous Tissue and Fascia, Open Approach (ICD-10-PCS; principal; 2018-10-15)
PROC: 0JBQ0ZZ Excision of Right Foot Subcutaneous Tissue and Fascia, Open Approach (ICD-10-PCS; 2018-10-15)
PROC: B246ZZ4 Ultrasonography of Right and Left Heart, Transesophageal (ICD-10-PCS; 2018-10-23)
PROC: 5A2204Z Restoration of Cardiac Rhythm, Single (ICD-10-PCS; 2018-10-23)
DX: I48.0 Paroxysmal atrial fibrillation (principal); F11.23 Opioid dependence with withdrawal; F10.239 Alcohol dependence with withdrawal, unspecified; L97.429 Non-pressure chronic ulcer of left heel and midfoot with unspecified severity; L97.419 Non-pressure chronic ulcer of right heel and midfoot with unspecified severity; L03.116 Cellulitis of left lower limb; I50.32 Chronic diastolic (congestive) heart failure; L03.115 Cellulitis of right lower limb; E11.621 Type 2 diabetes mellitus with foot ulcer; F10.229 Alcohol dependence with intoxication, unspecified; D50.9 Iron deficiency anemia, unspecified; B18.2 Chronic viral hepatitis C; I11.0 Hypertensive heart disease with heart failure; E11.65 Type 2 diabetes mellitus with hyperglycemia; E78.00 Pure hypercholesterolemia, unspecified; E78.5 Hyperlipidemia, unspecified; E87.5 Hyperkalemia; I34.0 Nonrheumatic mitral (valve) insufficiency; S00.03XA Contusion of scalp, initial encounter; L97.529 Non-pressure chronic ulcer of other part of left foot with unspecified severity; L97.519 Non-pressure chronic ulcer of other part of right foot with unspecified severity; I25.10 Atherosclerotic heart disease of native coronary artery without angina pectoris; B95.7 Other staphylococcus as the cause of diseases classified elsewhere; I70.0 Atherosclerosis of aorta; G47.33 Obstructive sleep apnea (adult) (pediatric); F34.1 Dysthymic disorder; F60.9 Personality disorder, unspecified; W19.XXXA Unspecified fall, initial encounter; Y90.6 Blood alcohol level of 120-199 mg/100 ml; R29.6 Repeated falls; Z96.653 Presence of artificial knee joint, bilateral; E66.9 Obesity, unspecified; Z68.38 Body mass index [BMI] 38.0-38.9, adult; Z79.4 Long term (current) use of insulin; Z91.81 History of falling; Y92.009 Unspecified place in unspecified non-institutional (private) residence as the place of occurrence of the external cause; Z85.820 Personal history of malignant melanoma of skin; Z79.01 Long term (current) use of anticoagulants